=== PATIENT | male | born 1955 | race Caucasian/White ===

== ENCOUNTER 2024-02-10 16:13 | Observation (INO) ==
[2024-02-10] MEDS: SODIUM CHLORIDE 0.9% 1,000 ML IV ONE (16:38)
[2024-02-10] MEDS: ONDANSETRON INJ 2 MG/ML 2 ML VIAL IV STA ×2 (16:38→19:13)
[2024-02-10] MEDS: MoRPHine SULFATE 4 MG/ML 1 ML CARP\\VIAL IV STA (16:39)
[2024-02-10] MEDS: ASPIRIN CHEW 324 MG PO STA (16:39)
[2024-02-10 16:49] LABS: Basophils # (auto) 0.01 K/uL (0.00-0.20); Basophils % (auto) 0.1 %; Hematocrit (blood only) 37.1 % (42.0-52.0); Hemoglobin 12.7 g/dl (14.0-18.0); Immature Granulocytes # (auto) 0.07 K/uL (0.01-0.20); Immature Granulocytes % (auto) 0.6 %; Lymphocytes # (auto) 0.88 K/uL (1.20-3.40); Lymphocytes % (auto) 7.9 %; Mean Corpuscular Hemoglobin 28.5 pg (25.0-34.0); Mean Corpuscular Hgb Conc 34.2 g/dL (32.0-36.0); Mean Corpuscular Volume 83.2 fL (80.0-100.0); Mean Platelet Volume 9.2 fL (9.4-12.4); Monocytes # (auto) 0.64 K/uL (0.11-0.59); Monocytes % (auto) 5.8 %; Neutrophils # (auto) 9.48 K/uL (1.40-6.50); Neutrophils % (auto) 85.6 %; Platelet Count 273 K/uL (130-400); RDW Coefficient of Variation 14.8 % (11.5-14.5); RDW Standard Deviation 44.7 fL (36.4-46.3); Red Blood Count 4.46 M/uL (4.70-6.10); White Blood Count 11.08 K/ul (4.8-10.8)
--- NOTE | 2024-02-10 16:58 | XRay Report ---
XR chest 1V portable HISTORY: 68 years-old Male CHEST PAIN COMPARISON: CT abdomen and pelvis 08/01/2023 TECHNIQUE: AP view the chest FINDINGS: Cardiac silhouette is enlarged. There is chronic right hemidiaphragmatic elevation with prominent epi cardial fat pad obscuring the right heart border. Atherosclerosis of the aorta. No pneumothorax, pleu ral effusion or pulmonary edema. The bones appear intact. IMPRESSION: No acute process ACT 112: Negative or not required by law. The above report was generated using voice recognition software. It may contain grammatical, syntax o r spelling errors. Electronically signed by: Shay Goncalves M.D. 02/10/2024 4:56 PM
[2024-02-10 17:10] LABS: Bilirubin Direct 0.1 mg/dl (0-0.2); Bilirubin,Total 0.6 mg/dl (0.2-1.0); Creatinine Clr Calc Pharmacy 79.3 ml/min; Est GFR (African American) 77.5 ml/min; Est GFR (Non-African American) 66.9 ml/min; Potassium 4.8 mmol/L (3.5-5.1); Total Protein 6.6 gm/dl (6.0-8.3)
[2024-02-10 17:14] LABS: D Dimer < 190 ug/L FEU (0-500); Partial Thromboplastin Time 26 Seconds (21-31); Prothrombin Time 10.9 Seconds (9.0-12.0)
--- NOTE | 2024-02-10 17:14 | XRay Report ---
XR abdomen min 2V CLINICAL HISTORY: ruq pain epigastric pain cp TECHNIQUE: 2 views of the abdomen were obtained. Comparison: None available at the time of this dictation. FINDINGS: Lung bases are unremarkable. Degenerative changes are seen in the visualized skeleton. The bowel gas pattern is nonobstructive. A moderate amount of stool is noted within the large bowel. IMPRESSION: Nonobstructive bowel gas pattern. ACT 112: Negative or not required by law. Electronically signed by: Kel Ordoñez M.D. 02/10/2024 5:13 PM
[2024-02-10 17:24] LABS: Troponin I High Sensitivity 4.2 pg/ml (0-20)
--- NOTE | 2024-02-10 18:23 | Ultrasound Report ---
US gallbladder CLINICAL HISTORY: ruq pain TECHNIQUE: Multiple real-time sonographic images of the right upper quadrant were obtained. Comparison: Comparison is made to CT abdomen pelvis 08/01/2023 FINDINGS: The liver is diffusely echogenic in appearance with poor ultrasound penetration, with normal contour, which is consistent with fatty infiltration. Liver measures 18.6 cm. No focal mass lesions are seen. No intrahepatic ductal dilatation is seen. Linear hyperechoic foci with posterior shadowing are identified layering dependently within the gallbladder, which are consistent with gallstones and slud ge. The gallbladder wall is not thickened. There is no pericholecystic fluid present. A sonographic Tate's sign was not elicited by the senior systems software engineer. The common duct measures 0.4 cm in diameter at t he level of the hepatic artery. The visualized portions of the pancreas appear normal. The right kidney shows normal echogenicity, cortical thickness and renal contour. The right kidney sh ows no evidence of hydronephrosis or mass. No ascites or free fluid is seen in Joyce's pouch. IMPRESSION: No acute abnormalities and in particular no evidence of acute cholecystitis. Hepatic steatosis is see n. ACT 112: Negative or not required by law. Electronically signed by: Kel Ordoñez M.D. 02/10/2024 6:22 PM
--- NOTE | 2024-02-10 18:28 | Emergency Department Note ---
History of Present Illness General Chief Complaint: Chest Pain Time Seen by Provider: 02/10/24 16:24 History of Present Illness Provider Complaint: chest pain Onset (ago): hour(s) 2 Duration: intermittent and improved Pain Location: substernal and left chest Pain Radiation: LUE and abdomen (Epigastric area) Maximum Pain Intensity: 7 Current Pain Intensity: 7 Quality: + aching, + sharp and + other (Burning) Relieved By: + nothing Exacerbated By: + nothing Context: + other (Occurred after eating); no recent illness, no recent surgery, no recent immobilization, no recent travel, no trauma/injury, no new medications or no history of DVT/PE Associated symptoms: + nausea and + dyspnea; no vomiting, no diaphoresis, no syncope, no palpitations, no fever, no cough or no leg swelling Treatments prior to arrival: aspirin and nitroglycerin Home Medications Medication Instructions Recorded Confirmed Type aspirin 81 mg tablet,delayed 81 mg PO QDD 08/13/18 02/10/24 History release (Nga Low Dose Aspirin) atorvastatin 80 mg tablet 80 mg PO HS 08/13/18 02/10/24 History fexofenadine 180 mg tablet 180 mg PO QDD 08/13/18 02/10/24 History fluticasone propionate 50 1 spray intranasal QAM 08/13/18 02/10/24 History mcg/actuation nasal spray,suspension (Flonase Allergy Relief) lisinopril 20 mg tablet 20 mg PO QPM 08/13/18 02/10/24 History magnesium 250 mg tablet 250 mg PO QDD 08/13/18 02/10/24 History metformin 500 mg tablet 500 mg PO BIDM 08/13/18 02/10/24 History multivitamin 1 tab PO QAM 08/13/18 02/10/24 History omega 5-rwb-fbb-fish oil 1,000 mg 1 cap PO .QLUNCH 08/13/18 02/10/24 History (120 mg-180 mg) capsule (Fish Oil) potassium gluconate 550 mg (90 mg) 550 mg PO QDD 08/13/18 02/10/24 History tablet diclofenac sodium 1 % topical gel 1 g topical QID 02/10/24 02/10/24 History (Voltaren Arthritis Pain) esomeprazole magnesium 20 mg 20 mg PO DAILYBB 02/10/24 02/10/24 History capsule,delayed release (Nexium) methylcellulose (laxative) 500 mg 500 mg PO DAILY 02/10/24 02/10/24 History tablet (Citrucel) naproxen 500 mg tablet 500 mg PO AMHS 02/10/24 02/10/24 History ondansetron 4 mg disintegrating 4 mg translingual Q8 PRN Nausea 02/10/24 02/10/24 History tablet prednisone 10 mg tablet 10 mg PO .TAPER DIRECTED 02/10/24 02/10/24 History semaglutide 3 mg tablet (Rybelsus) 3 mg PO DAILY 02/10/24 02/10/24 History semaglutide 7 mg tablet (Rybelsus) 7 mg PO .DAILY DIRECTED 02/10/24 02/10/24 History vit C 250 mg-vit E 90 mg-zinc 40 1 tab PO BID 02/10/24 02/10/24 History mg-copper 1 [id number] capsule (PreserVision AREDS-2) Allergies Allergy/AdvReac Type Severity Reaction Status Date / Time No Known Allergies Allergy Unknown Verified 02/10/24 17:07 Past Med/Surg History Problem List (Updated 02/10/24 @ 20:08 by Christiano Ford MD) Chest pain (Acute) Medical History Finger avulsion middle right finger and reattached Non-insulin dependent type 2 diabetes mellitus Obesity (BMI 35.0-39.9 without comorbidity) Diabetes Seasonal allergies Hypertension High cholesterol Surgical History Hx of colonoscopy Hx of hernia repair as child Social History Smoking Status: Former smoker Hx Alcohol Use: Yes Alcohol type: beer Hx Substance Use: No Preferred Language: Stateless Communication Ability: Effective Beliefs That Will Affect Care: None Current Living Situation: Spouse Feels Safe at Home: Yes Physical Exam Vital Signs Vital Signs - 24 hr 02/10/24 16:28 02/10/24 16:29 02/10/24 17:46 Temperature 36.9 C Temperature Source Oral Pulse Rate 90 91 H Pulse Rate [Right Radial] Pulse Rhythm [Right Radial] Pulse Strength [Right Radial] Respiratory Rate 20 Respiratory Effort / Characteristics Non-Labored Spontaneous Respiratory Depth Normal Respiratory Pattern Regular Blood Pressure 175/73 H Blood Pressure [Right Arm] Blood Pressure Mean 107 Blood Pressure Mean [Right Arm] Pulse Oximetry 96 95 Oxygen Delivery Method Room Air Room Air Sepsis Recent Fever Within 48 Hours No Sepsis New/Unexplained Change in Mental Status N/A Sepsis Action Taken by Nursing No Action Required 02/10/24 19:17 Temperature Temperature Source Pulse Rate Pulse Rate [Right Radial] 73 Pulse Rhythm [Right Radial] Regular Pulse Strength [Right Radial] Normal Respiratory Rate 18 Respiratory Effort / Characteristics Non-Labored Spontaneous Respiratory Depth Normal Respiratory Pattern Blood Pressure Blood Pressure [Right Arm] 129/66 Blood Pressure Mean Blood Pressure Mean [Right Arm] 87 Pulse Oximetry 97 Oxygen Delivery Method Room Air Sepsis Recent Fever Within 48 Hours Sepsis New/Unexplained Change in Mental Status Sepsis Action Taken by Nursing Physical Exam GENERAL: She is oriented to person, place, and time. She appears well-developed and well-nourished. She does not appear distressed. HENT: Exam performed. -Head: Normocephalic and atraumatic. -Right Ear: External ear normal. No mastoid erythema -Left Ear: External ear normal. No mastoid erythema -Mouth/Throat: The oropharynx is clear and moist. No trismus in the jaw. No dental abscesses or uvula swelling. No oropharyngeal exudate or tonsillar abscesses. EYES: Conjunctivae and EOM are normal.Right eye exhibits no discharge. Left eye exhibits no discharge. No scleral icterus. NECK: Normal range of motion. Neck supple. No JVD present. No tracheal deviation and normal range of motion present. CV: Normal rate, regular rhythm, normal heart sounds and intact distal pulses. There is no peripheral edema. Palpable radial pulses bue. PULM/CHEST: Effort normal and breath sounds normal. No respiratory distress. No stridor. She has no wheezes. She has no rales. -Chest Wall: She exhibits no tenderness. ABD: The abdomen is soft. Bowel sounds are normal. She has no distension. No mass is present. There is tenderness to palpation of the epigastric area and right upper quadrant. There is no rebound, no guarding, no Tate's sign and no tenderness at McBurney's point. Rovsig negative MUSC/SKEL: Normal range of motion. There is no peripheral edema, tenderness or deformity. NEURO: Motor and sensation grossly intact. SKIN: Skin is warm and dry. She is not diaphoretic. PSYCH: She has a normal mood and affect. Behavior is normal. Judgment and thought content normal. Course Course 1624: The patient was evaluated in room A11. A complete history and physical exam was performed Cardiac monitoring: An order was placed for continuous cardiac monitoring. The monitor shows a rate of 90 with sinus rhythm interpreted by me 1845: Vital signs stable. Labs and imaging within normal limits including negative troponin EKG chest x-ray D-dimer ultrasound. Patient be admitted to the [facility] Hospitalist team for chest pain rule out ACS. Administered Medications Discontinued Medications Aspirin (Aspirin Chew 324 Mg) 324 mg PO NOW STA Stop: 02/10/24 16:25 Last Admin: 02/10/24 16:39 Dose: Not Given Documented By: ZOFIA Sodium Chloride (Nss) 1,000 mls @ 999 mls/hr IV .Q1H1M ONE Stop: 02/10/24 17:33 Last Infusion: 02/10/24 19:06 Dose: Infused Documented By: Admin: 02/10/24 16:38 Dose: 999 mls/hr Documented By: ZOFIA Lorazepam (Lorazepam 1 Mg Tab) 1 mg SL NOW STA Stop: 02/10/24 19:58 Last Admin: 02/10/24 20:00 Dose: 1 mg Documented By: ABHIJIT Morphine Sulfate (Morphine Sulfate 4 Mg/Ml 1 Ml Carp\Vial) 4 mg IV NOW STA Stop: 02/10/24 16:34 Last Admin: 02/10/24 16:39 Dose: 4 mg Documented By: ZOFIA Nitroglycerin (Nitroglycerin 2% Ointment 30gm Tube) 0.5 inch EXT NOW STA Stop: 02/10/24 19:10 Last Admin: 02/10/24 19:13 Dose: 0.5 inch Documented By: ABHIJIT Ondansetron HCl (Ondansetron Inj 2 Mg/Ml 2 Ml Vial) 4 mg IV NOW STA Stop: 02/10/24 16:34 Last Admin: 02/10/24 16:38 Dose: 4 mg Documented By: ZOFIA Ondansetron HCl (Ondansetron Inj 2 Mg/Ml 2 Ml Vial) 4 mg IV NOW STA Stop: 02/10/24 19:11 Last Admin: 02/10/24 19:13 Dose: 4 mg Documented By: ABHIJIT Medical Decision Making Laboratory Data Attestation: I reviewed the patient's lab results. 02/10/24 16:24 02/10/24 16:24 Labs: Lab Results 02/10/24 Range/Units 16:24 WBC 11.08 H (4.8-10.8) K/ul RBC 4.46 L (4.70-6.10) M/uL Hgb 12.7 L (14.0-18.0) g/dl Hct 37.1 L (42.0-52.0) % MCV 83.2 (80.0-100.0) fL MCH 28.5 (25.0-34.0) pg MCHC 34.2 (32.0-36.0) g/dL RDW Std Deviation 44.7 (36.4-46.3) fL RDW Coeff of Dragan 14.8 H (11.5-14.5) % Plt Count 273 (130-400) K/uL MPV 9.2 L (9.4-12.4) fL Immature Gran % (Auto) 0.6 % Neut % (Auto) 85.6 % Lymph % (Auto) 7.9 % Iron % (Auto) 5.8 % Eos % (Auto) 0.0 % Baso % (Auto) 0.1 % Neut # (Auto) 9.48 H (1.40-6.50) K/uL Lymph # (Auto) 0.88 L (1.20-3.40) K/uL Iron # (Auto) 0.64 H (0.11-0.59) K/uL Eos # (Auto) 0.00 (0.00-0.50) K/uL Baso # (Auto) 0.01 (0.00-0.20) K/uL Immature Gran # (Auto) 0.07 (0.01-0.20) K/uL PT 10.9 (9.0-12.0) Seconds INR 1.0 (0.9-1.1) APTT 26 (21-31) Seconds PTT Ratio 1.0 D-Dimer < 190 (0-500) ug/L FEU Sodium 137 (136-145) mmol/L Potassium 4.8 (3.5-5.1) mmol/L Chloride 104 (98-107) mmol/L Carbon Dioxide 25 (21-32) mmol/L Anion Gap 8 (3-11) BUN 26 H (6-23) mg/dl Creatinine 1.13 (0.6-1.4) mg/dl Est Cr Clr Drug Dosing 79.3 ml/min Est GFR ( Amer) 77.5 ml/min Est GFR (Non-Af Amer) 66.9 ml/min BUN/Creatinine Ratio 23.0 H (10-20) Glucose 372 H* (70-99(Fasting)) mg/dl Calcium 9.0 (8.6-10.3) mg/dl Total Bilirubin 0.6 (0.2-1.0) mg/dl Direct Bilirubin 0.1 (0-0.2) mg/dl AST 14 (13-39) U/L ALT 20 (7-52) U/L Alkaline Phosphatase 75 (34-104) U/L Troponin I High Sens 4.2 (0-20) pg/ml Total Protein 6.6 (6.0-8.3) gm/dl Albumin 4.0 (3.4-5.0) gm/dl Lipase 58 (11-82) U/L Imaging Data Abdominal x-ray: Radiologist's impression: XR abdomen min 2V CLINICAL HISTORY: ruq pain epigastric pain cp TECHNIQUE: 2 views of the abdomen were obtained. Comparison: None available at the time of this dictation. FINDINGS: Lung bases are unremarkable. Degenerative changes are seen in the visualized skeleton. The bowel gas pattern is nonobstructive. A moderate amount of stool is noted within the large bowel. IMPRESSION: Nonobstructive bowel gas pattern. ACT 112: Negative or not required by law. Electronically signed by: Kel Ordoñez M.D. 02/10/2024 5:13 PM Dictated: 02/10/241710 Transcribed: 02/10/241710 Chest x-ray: Attestation: I personally reviewed and interpreted this imaging study as follows: My impression: Chest x-ray negative. Airway clear. No pneumothorax. No consolidation. No cardiomegaly or cephalization.. No free air under the diaphragm. No fractures of the skeletal structures. Radiologist's impression: XR chest 1V portable HISTORY: 68 years-old Male CHEST PAIN COMPARISON: CT abdomen and pelvis 08/01/2023 TECHNIQUE: AP view the chest FINDINGS: Cardiac silhouette is enlarged. There is chronic right hemidiaphragmatic elevation with prominent epicardial fat pad obscuring the right heart border. Atherosclerosis of the aorta. No pneumothorax, pleural effusion or pulmonary edema. The bones appear intact. IMPRESSION: No acute process ACT 112: Negative or not required by law. The above report was generated using voice recognition software. It may contain grammatical, syntax or spelling errors. Electronically signed by: Shay Goncalves M.D. 02/10/2024 4:56 PM Dictated: 02/10/241652 Transcribed: 02/10/241652 US - abdomen: Radiologist's impression: US gallbladder CLINICAL HISTORY: ruq pain TECHNIQUE: Multiple real-time sonographic images of the right upper quadrant were obtained. Comparison: Comparison is made to CT abdomen pelvis 08/01/2023 FINDINGS: The liver is diffusely echogenic in appearance with poor ultrasound penetration, with normal contour, which is consistent with fatty infiltration. Liver measures 18.6 cm. No focal mass lesions are seen. No intrahepatic ductal dilatation is seen. Linear hyperechoic foci with posterior shadowing are identified layering dependently within the gallbladder, which are consistent with gallstones and sludge. The gallbladder wall is not thickened. There is no pericholecystic fluid present. A sonographic Tate's sign was not elicited by the behavioral health director. The common duct measures 0.4 cm in diameter at the level of the hepatic artery. The visualized portions of the pancreas appear normal. The right kidney shows normal echogenicity, cortical thickness and renal contour. The right kidney shows no evidence of hydronephrosis or mass. No ascites or free fluid is seen in Joyce's pouch. IMPRESSION: No acute abnormalities and in particular no evidence of acute cholecystitis. Hepatic steatosis is seen. ACT 112: Negative or not required by law. Electronically signed by: Kel Ordoñez M.D. 02/10/2024 6:22 PM Dictated: 02/10/241819 Transcribed: 02/10/241819 ECG Data Attestation: I personally reviewed and interpreted this ECG as follows: Indication: abdominal pain and chest pain Rate (beats per minute): 91 Rhythm: normal sinus Findings: + 1st degree AV block; no ST depression, no ST elevation or no prolonged QT MDM Narrative 1624: The patient was evaluated in room A11. A complete history and physical exam was performed Cardiac monitoring: An order was placed for continuous cardiac monitoring. The monitor shows a rate of 90 with sinus rhythm interpreted by me 1845: Vital signs stable. Labs and imaging within normal limits including negative troponin EKG chest x-ray D-dimer ultrasound. Patient be admitted to the [facility] hospitalist team for chest pain rule out ACS. Impression & Plan Chest pain Discharge Plan Visit Data Chief Complaint: Chest Pain ED Provider: Christiano Ford Discharge Problem: Chest pain Patient Disposition: Being Evaluated by Hospitalist Forms Stand Alone Forms: My [facility] Prescriptions Prescriptions: No Action multivitamin Tablet 1 tab PO QAM metformin 500 mg Tablet 500 mg PO BIDM atorvastatin 80 mg Tablet 80 mg PO HS lisinopril 20 mg Tablet 20 mg PO QPM fexofenadine 180 mg Tablet 180 mg PO QDD aspirin [Nga Low Dose Aspirin] 81 mg Tablet,Delayed Release (Dr/Ec) 81 mg PO QDD fluticasone propionate [Flonase Allergy Relief] 50 mcg/actuation Venus,Suspension 1 spray INTRANASAL QAM omega 9-mjl-ade-fish oil [Fish Oil] 1,000 mg (120 mg-180 mg) Capsule 1 cap PO .QLUNCH magnesium 250 mg Tablet 250 mg PO QDD potassium gluconate 550 mg (90 mg) Tablet 550 mg PO QDD prednisone 10 mg tablet 10 mg PO .TAPER DIRECTED Rx Instructions: Take 5 tabs for 2 days, 4 tabs for 2 days, 3 tabs for 2 days, tabs for 2 days, 1 tab for 2 days Citrucel 500 mg Tablet 500 mg PO DAILY ondansetron 4 mg tablet,disintegrating 4 mg translingual Q8 PRN (Reason: Nausea) naproxen 500 mg tablet 500 mg PO AMHS esomeprazole magnesium [Nexium] 20 mg Capsule,Delayed Release(Dr/Ec) 20 mg PO DAILYBB diclofenac sodium [Voltaren Arthritis Pain] 1 % Gel 1 g TOPICAL QID PreserVision AREDS-2 250-90-40-1 mg Capsule 1 tab PO BID Rybelsus 3 mg Tablet 3 mg PO DAILY Rx Instructions: New. Has not started. Rybelsus 7 mg Tablet 7 mg PO .DAILY DIRECTED Rx Instructions: New. Did not start Referrals Referrals: Alonso Daigle MD [Primary Care Provider] - Discharge Problem: Chest pain Qualifiers: Chest pain type: unspecified Qualified Code(s): R07.9 - Chest pain, unspecified
[2024-02-10] MEDS: NITROGLYCERIN 2% OINTMENT 30GM TUBE EXT STA (19:13)
[2024-02-10] MEDS: LORazepam 1 MG TAB SL STA (20:00)
--- NOTE | 2024-02-10 20:46 | History & Physical Report ---
Date of Service February 10, 2024 Assessment & Plan (1) Chest pain: Plan: 68-year-old male with past medical history significant for type 2 diabetes, hyperlipidemia, hypertension, generalized osteoarthritis, cervical spondylosis, history of upper extremity weakness, chronic neck pain, comes because of chest pain and shortness of breath. Patient states today afternoon he started developing chest pain middle of the chest radiating to his both his arms very s evere in nature. Associated with shortness of breath and feeling hot and clammy in hands. Enroute to hospital EMS has given 4 nitros that did not help much the pain and in ER morphine was given which brought down the pain to 6/10 in severity. He was also nauseous and required Zofran. When EMS came he was having a lot of headache. Currently headache is much improved. He is also feeling dizzy when he is standing up. States had this kind of pain before but used to subside with TUMS but today it was not improving. Yesterday went to PCP because of possible food poisoning from chicken he ate on Friday and he was hurting everywhere. And for possible viral illness he was given prednisone. And also Zofran for nausea. Patient is also on naproxen for his chronic cervical spine pain. Patient states in the winter when he was shoveling and try to do it all at one time used to get chest pains and had to stop and take couple of breaths. Seems also getting chest pains on exertion. Has some pressure feeling in ears.. Vision is somewhat blurry. No runny nose or sore throat or cough. Patient seems to having abdominal pain.. Normal bowel and bladder movements. No swelling the legs. He does not sleep well. Patient states otherwise he is very active. Currently hemodynamics are okay. Family in the room.Patient is able to give the history. Chest pain and shortness of breath initial workup okay D-dimer negative will repeat troponin Follow serial cardiac enzymes and echocardiogram med/telemetry n.p.o. after midnight consult cardiology in a.m. for further recommendations right upper quad abdominal pain LFTs are okay gallbladder ultrasound is okay we will monitor. Dizziness while standing. will check orthostatics gentle fluids will monitor. type 2 diabetes hold metformin and semaglutide insulin sliding scale follow HbA1c levels will monitor hyperlipidemia on statin hypertension on lisinopril recent viral illness . Started on Prednisone yesterday which will be held GERD on Nexium will give a dose of IV Pepcid chronic cervical spine pain will hold naproxen for now DVT prophylaxis SCDs disposition med/telemetry full code History of Present Illness Chief Complaint: Chest pain and shortness of breath Primary Care Provider: Alonso Daigle MD 68-year-old male with past medical history significant for type 2 diabetes, hyperlipidemia, hypertension, generalized osteoarthritis, cervical spondylosis, history of upper extremity weakness, chronic neck pain, comes because of chest pain and shortness of breath. Patient states today afternoon he started developing chest pain middle of the chest radiating to his both his arms very severe in nature. Associated with shortness of breath and feeling hot and clammy in hands. Enroute to hospital EMS has given 4 nitros that did not help much the pain and in ER morphine was given which brought down the pain to 6/10 in severity. He was also nauseous and required Zofran. When EMS came he was having a lot of headache. Currently headache is much improved. He is also feeling dizzy when he is standing up. States had this kind of pain before but used to subside with TUMS but today it was not improving. Yesterday went to PCP because of possible food poisoning from chicken he ate on Friday and he was hurting everywhere. And for possible viral illness he was given prednisone. And also Zofran for nausea. Patient is also on naproxen for his chronic cervical spine pain. Patient states in the winter when he was shoveling and try to do it all at one time used to get chest pains and had to stop and take couple of breaths. Seems also getting chest pains on exertion. Has some pressure feeling in ears.. Vision is somewhat blurry. No runny nose or sore throat or cough. Patient seems to having abdominal pain.. Normal bowel and bladder movements. No swelling the legs. He does not sleep well. Patient states otherwise he is very active. Currently hemodynamics are okay. Family in the room.Patient is able to give the history. Past medical history. As mentioned above. Past surgical history. Colonoscopy. Left knee arthroscopy. Inguinal hernia repair umbilical hernia repair social history. . Quit smoking 2001. Smoked 1 pack a day for 30 years. Alcohol rarely. No drug use. Family history. Brother had prostate cancer. Father had prostate cancer. CABG. Mother had a stroke. Allergies Allergy/AdvReac Type Severity Reaction Status Date / Time No Known Allergies Allergy Unknown Verified 02/10/24 17:07 Home Medications Medication Instructions Recorded Confirmed Type aspirin 81 mg tablet,delayed 81 mg PO QDD 08/13/18 02/10/24 History release (Nga Low Dose Aspirin) atorvastatin 80 mg tablet 80 mg PO HS 08/13/18 02/10/24 History fexofenadine 180 mg tablet 180 mg PO QDD 08/13/18 02/10/24 History fluticasone propionate 50 1 spray intranasal QAM 08/13/18 02/10/24 History mcg/actuation nasal spray,suspension (Flonase Allergy Relief) lisinopril 20 mg tablet 20 mg PO QPM 08/13/18 02/10/24 History magnesium 250 mg tablet 250 mg PO QDD 08/13/18 02/10/24 History metformin 500 mg tablet 500 mg PO BIDM 08/13/18 02/10/24 History multivitamin 1 tab PO QAM 08/13/18 02/10/24 History omega 8-yot-tzj-fish oil 1,000 mg 1 cap PO .QLUNCH 08/13/18 02/10/24 History (120 mg-180 mg) capsule (Fish Oil) potassium gluconate 550 mg (90 mg) 550 mg PO QDD 08/13/18 02/10/24 History tablet diclofenac sodium 1 % topical gel 1 g topical QID 02/10/24 02/10/24 History (Voltaren Arthritis Pain) esomeprazole magnesium 20 mg 20 mg PO DAILYBB 02/10/24 02/10/24 History capsule,delayed release (Nexium) methylcellulose (laxative) 500 mg 500 mg PO DAILY 02/10/24 02/10/24 History tablet (Citrucel) naproxen 500 mg tablet 500 mg PO AMHS 02/10/24 02/10/24 History ondansetron 4 mg disintegrating 4 mg translingual Q8 PRN Nausea 02/10/24 02/10/24 History tablet prednisone 10 mg tablet 10 mg PO .TAPER DIRECTED 02/10/24 02/10/24 History semaglutide 3 mg tablet (Rybelsus) 3 mg PO DAILY 02/10/24 02/10/24 History semaglutide 7 mg tablet (Rybelsus) 7 mg PO .DAILY DIRECTED 02/10/24 02/10/24 History vit C 250 mg-vit E 90 mg-zinc 40 1 tab PO BID 02/10/24 02/10/24 History mg-copper 1 mj-flshlt-vcukei capsule (PreserVision AREDS-2) Past Med/Surg History Problem List (Updated 02/10/24 @ 20:08 by Christiano Ford MD) Chest pain (Acute) Medical History Finger avulsion middle right finger and reattached Non-insulin dependent type 2 diabetes mellitus Obesity (BMI 35.0-39.9 without comorbidity) Diabetes Seasonal allergies Hypertension High cholesterol Surgical History Hx of colonoscopy Hx of hernia repair as child Social History Smoking Status: Former smoker Tobacco Type: Cigarettes Hx Alcohol Use: Yes Alcohol type: beer Hx Substance Use: No Preferred Language: Sinhala Communication Ability: Effective 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 Required: No Beliefs That Will Affect Care: None Current Living Situation: Spouse Other Information That Helps Us Care for You: No Feels Safe at Home: No Is there a partner from a previous relationship who is making you feel unsafe now?: No Any Concerns about Your Family Situation: No Would You Like to Speak to Someone About Your Situation: No Safety Concerns: Feels Safe At This Time Assistive Devices: Glasses Review of Systems Review of Systems: All systems reviewed & are unremarkable except as noted in HPI & below Physical Exam Physical Exam: General- Not in distress Head- atraumatic Eyes- PERRL, EOMI. ENT- oropharynx clear Neck- supple, no JVD, no adenopathy, carotids no bruits appreciated Lungs- clear to auscultation no wheezing or crackles Heart- regular rate and rhythm; no murmur, no gallop. Abdomen- normal bowel sounds, soft, tenderness in ruq region. no guarding, no distension Extremities- no pretibial edema, no erythema seen Neuro- alert, oriented PERRL, EOMI; no facial palsy; no dysarthria; moves extremities. Results & Data Results & Data Vital Signs (Past 12 Hours) Vital Signs Temp Pulse Pulse Resp BP BP Pulse Ox 02/10/24 20:14 71 02/10/24 19:17 73 18 129/66 97 02/10/24 17:46 91 H 02/10/24 16:29 95 02/10/24 16:28 36.9 C 90 20 175/73 H 96 O2 Del Method 02/10/24 20:14 02/10/24 19:17 Room Air 02/10/24 17:46 02/10/24 16:29 Room Air 02/10/24 16:28 Room Air Diagnostic Findings Laboratory Results WBC 11.08 K/ul (4.8-10.8) H 02/10/24 16:24 RBC 4.46 M/uL (4.70-6.10) L 02/10/24 16:24 Hgb 12.7 g/dl (14.0-18.0) L 02/10/24 16:24 Hct 37.1 % (42.0-52.0) L 02/10/24 16:24 MCV 83.2 fL (80.0-100.0) 02/10/24 16:24 MCH 28.5 pg (25.0-34.0) 02/10/24 16:24 MCHC 34.2 g/dL (32.0-36.0) 02/10/24 16:24 RDW Std Deviation 44.7 fL (36.4-46.3) 02/10/24 16:24 RDW Coeff of Dragan 14.8 % (11.5-14.5) H 02/10/24 16:24 Plt Count 273 K/uL (130-400) 02/10/24 16:24 MPV 9.2 fL (9.4-12.4) L 02/10/24 16:24 Immature Gran % (Auto) 0.6 % 02/10/24 16:24 Neut % (Auto) 85.6 % 02/10/24 16:24 Lymph % (Auto) 7.9 % 02/10/24 16:24 Wilbarger % (Auto) 5.8 % 02/10/24 16:24 Eos % (Auto) 0.0 % 02/10/24 16:24 Baso % (Auto) 0.1 % 02/10/24 16:24 Neut # (Auto) 9.48 K/uL (1.40-6.50) H 02/10/24 16:24 Lymph # (Auto) 0.88 K/uL (1.20-3.40) L 02/10/24 16:24 Wilbarger # (Auto) 0.64 K/uL (0.11-0.59) H 02/10/24 16:24 Eos # (Auto) 0.00 K/uL (0.00-0.50) 02/10/24 16:24 Baso # (Auto) 0.01 K/uL (0.00-0.20) 02/10/24 16:24 Immature Gran # (Auto) 0.07 K/uL (0.01-0.20) 02/10/24 16:24 PT 10.9 Seconds (9.0-12.0) 02/10/24 16:24 INR 1.0 (0.9-1.1) 02/10/24 16:24 APTT 26 Seconds (21-31) 02/10/24 16:24 PTT Ratio 1.0 02/10/24 16:24 D-Dimer < 190 ug/L FEU (0-500) 02/10/24 16:24 Sodium 137 mmol/L (136-145) 02/10/24 16:24 Potassium 4.8 mmol/L (3.5-5.1) 02/10/24 16:24 Chloride 104 mmol/L (98-107) 02/10/24 16:24 Carbon Dioxide 25 mmol/L (21-32) 02/10/24 16:24 Anion Gap 8 (3-11) 02/10/24 16:24 BUN 26 mg/dl (6-23) H 02/10/24 16:24 Creatinine 1.13 mg/dl (0.6-1.4) 02/10/24 16:24 Est Cr Clr Drug Dosing 79.3 ml/min 02/10/24 16:24 Est GFR ( Amer) 77.5 ml/min 02/10/24 16:24 Est GFR (Non-Af Amer) 66.9 ml/min 02/10/24 16:24 BUN/Creatinine Ratio 23.0 (10-20) H 02/10/24 16:24 Glucose 372 mg/dl (70-99(Fasting)) H* 02/10/24 16:24 Calcium 9.0 mg/dl (8.6-10.3) 02/10/24 16:24 Total Bilirubin 0.6 mg/dl (0.2-1.0) 02/10/24 16:24 Direct Bilirubin 0.1 mg/dl (0-0.2) 02/10/24 16:24 AST 14 U/L (13-39) 02/10/24 16:24 ALT 20 U/L (7-52) 02/10/24 16:24 Alkaline Phosphatase 75 U/L (34-104) 02/10/24 16:24 Troponin I High Sens 4.2 pg/ml (0-20) 02/10/24 16:24 Total Protein 6.6 gm/dl (6.0-8.3) 02/10/24 16:24 Albumin 4.0 gm/dl (3.4-5.0) 02/10/24 16:24 Lipase 58 U/L (11-82) 02/10/24 16:24 Impressions Abdomen X-Ray 02/10/24 16:33 XR abdomen min 2V CLINICAL HISTORY: ruq pain epigastric pain cp TECHNIQUE: 2 views of the abdomen were obtained. Comparison: None available at the time of this dictation. FINDINGS: Lung bases are unremarkable. Degenerative changes are seen in the visualized skeleton. The bowel gas pattern is nonobstructive. A moderate amount of stool is noted within the large bowel. IMPRESSION: Nonobstructive bowel gas pattern. ACT 112: Negative or not required by law. Electronically signed by: Kel Ordoñez M.D. 02/10/2024 5:13 PM Gallbladder Ultrasound 02/10/24 16:33 US gallbladder CLINICAL HISTORY: ruq pain TECHNIQUE: Multiple real-time sonographic images of the right upper quadrant were obtained. Comparison: Comparison is made to CT abdomen pelvis 08/01/2023 FINDINGS: The liver is diffusely echogenic in appearance with poor ultrasound penetration, with normal contour, which is consistent with fatty infiltration. Liver measures 18.6 cm. No focal mass lesions are seen. No intrahepatic ductal dilatation is seen. Linear hyperechoic foci with posterior shadowing are identified layering dependently within the gallbladder, which are consistent with gallstones and sludge. The gallbladder wall is not thickened. There is no pericholecystic fluid present. A sonographic Tate's sign was not elicited by the r&d lab technician. The common duct measures 0.4 cm in diameter at the level of the hepatic artery. The visualized portions of the pancreas appear normal. The right kidney shows normal echogenicity, cortical thickness and renal contour. The right kidney shows no evidence of hydronephrosis or mass. No ascites or free fluid is seen in Joyce's pouch. IMPRESSION: No acute abnormalities and in particular no evidence of acute cholecystitis. Hepatic steatosis is seen. ACT 112: Negative or not required by law. Electronically signed by: Kel Ordoñez M.D. 02/10/2024 6:22 PM Code Status & VTE Plan VTE Prophylaxis Plan VTE Prophylaxis will be ordered: Yes (1) Chest pain Chest pain type: unspecified Qualified Code(s): R07.9 - Chest pain, unspecified
[2024-02-10] MEDS ORDERED: ACETAMINOPHEN 325 MG TAB PO PRN (21:43)
[2024-02-10] MEDS ORDERED: CARBOHYDRATES FOR HYPOGLYCEMIA PO PRN (21:43)
[2024-02-10] MEDS ORDERED: NITROGLYCERIN SL 0.4 MG/TAB TAB SL PRN (21:43)
[2024-02-10] MEDS ORDERED: GLUCOSE 10 TAB/TUBE PO PRN (21:43)
[2024-02-10] MEDS ORDERED: DEXTROSE 50% 50 ML SYRINGE IV PRN (21:43)
[2024-02-10] MEDS ORDERED: GLUCAGON FOR INJ 1 MG VIAL SQ PRN (21:43)
[2024-02-10] MEDS ORDERED: GLUCOSE 40% GEL 15 GM TUBE PO PRN (21:43)
[2024-02-10] MEDS: FAMOTIDINE 20MG IV PUSH 20 MG/5 ML SYR IV STA (22:24)
[2024-02-10] MEDS: lisinopril 20 MG TAB PO SCH (22:24)
[2024-02-10] MEDS: ATORVASTATIN 40 MG TAB PO SCH (22:24)
[2024-02-10] MEDS: SODIUM CHLORIDE 0.9% 1,000 ML IV SCH (22:25)
[2024-02-10] MEDS: INSULIN ASPART PER UNIT CHARGE SC SCH (23:47)
[2024-02-11] MEDS: MoRPHine SULFATE 2 MG/ML CARP IV PRN (02:23)
[2024-02-11] MEDS: PANTOprazole 40 MG TAB PO SCH (05:34)
[2024-02-11 05:56] LABS: Basophils # (auto) 0.05 K/uL (0.00-0.20); Basophils % (auto) 0.5 %; Eosinophils # (auto) 0.13 K/uL (0.00-0.50); Eosinophils % (auto) 1.2 %; Hematocrit (blood only) 34.3 % (42.0-52.0); Hemoglobin 11.6 g/dl (14.0-18.0); Immature Granulocytes # (auto) 0.05 K/uL (0.01-0.20); Immature Granulocytes % (auto) 0.5 %; Lymphocytes # (auto) 2.27 K/uL (1.20-3.40); Lymphocytes % (auto) 21.7 %; Mean Corpuscular Hemoglobin 28.6 pg (25.0-34.0); Mean Corpuscular Hgb Conc 33.8 g/dL (32.0-36.0); Mean Corpuscular Volume 84.7 fL (80.0-100.0); Mean Platelet Volume 9.4 fL (9.4-12.4); Monocytes # (auto) 0.86 K/uL (0.11-0.59); Monocytes % (auto) 8.2 %; Neutrophils # (auto) 7.08 K/uL (1.40-6.50); Neutrophils % (auto) 67.9 %; Platelet Count 252 K/uL (130-400); RDW Coefficient of Variation 15.3 % (11.5-14.5); RDW Standard Deviation 47.3 fL (36.4-46.3); Red Blood Count 4.05 M/uL (4.70-6.10); White Blood Count 10.44 K/ul (4.8-10.8)
[2024-02-11 06:04] LABS: BUN Creatinine Ratio 21.6 (10-20); Calcium 8.4 mg/dl (8.6-10.3); Est GFR (African American) 87.7 ml/min; Est GFR (Non-African American) 75.7 ml/min; Magnesium 1.9 mg/dl (1.7-2.4)
[2024-02-11 06:11] LABS: Troponin I High Sensitivity 5.9 pg/ml (0-20)
[2024-02-11] MEDS ORDERED: bisacodyL 10 MG SUPP PR PRN (08:24)
[2024-02-11] MEDS: FLUTICASONE PROPIONATE NA SPR 16 GM BTL SCH (08:31)
[2024-02-11] MEDS: MULTIVITAMIN TAB PO SCH (08:31)
[2024-02-11] MEDS: CEROVITE ADV FORMULA TAB PO SCH (08:31)
[2024-02-11] MEDS: METHYLCELLULOSE POWDER 454 GM JAR PO SCH (08:31)
[2024-02-11 08:39] LABS: Estimated Average Glucose 171 mg/dl; Hemoglobin A1C 7.6 % (4.5-5.6)
--- NOTE | 2024-02-11 09:12 | Cardiology Consultation ---
Date of Consultation February 11, 2024 Assessment & Plan (1) Chest pain: (2) Hypertension: (3) Cervical spine arthritis with nerve pain: Plan Patient admitted with epigastric/chest pain radiating down both arms. EKG demonstrated NSR without ischemic changes x2. HS troponin negative x3. Symptoms started after taking 2 days of high dose prednisone for possible viral illness. Symptoms without significant improvement with SL nitro or nitro patch. D/C nitro patch this morning due to headache. Echo report is pending Given cardiac risk factors including DM, HTN, Dyslipidemia, prior tobacco abuse, recommend ischemic work up with dobutamine stress echocardiogram. Given his chronic neck pain with radiculopathy, patient does not feel he would adequately ambulate on a treadmill Further recommendations pending review of dobutamine stress echo. Consider GI or musculoskeletal etiology. IV morphine aided his symptoms in the ER. Abd/GB US unremarkable. In the meantime, continue ASA 81 mg daily, atorvastatin, and lisinopril. Case discussed with Dr. Snider I spent a total of 55 minutes on the date of service in preparation, delivery, and documentation of the care provided to this patient, excluding any time spent in the performance of separately billed services. Rosa Fajardo PA-C Department of Cardiology, [facility] This chart was completed in part utilizing Speech Voice Recognition Software. Grammatical errors, random word insertions, pronoun errors, and incomplete sentences are an occasional consequence of this system due to software limitations, ambient noise, and hardware issues. Any formal questions or concerns about the content, text, or information contained within the body of this dictation should be directly addressed to the provider for clarification. Supervising Physician Co-Signing Physician Notes I have personally performed a history and physical examination on the patient. I have reviewed the advance practitioner's documentation, and I agree with, and take responsibility for the plan of care. 68-year-old male seen and examined after dobutamine stress echo. Stress test demonstrating sustained ventricular tachycardia with worsening chest discomfort. Basal and mid septal hypokinesis noted on stress imaging. Findings suggestive of ischemic heart disease. VT resolved with administration of beta-radha therapy. Recommend left heart catheterization with coronary angiography for further evaluation. Risk, benefits, alternatives to procedure discussed. Patient agreeable to proceed. Findings recommendations discussed with family as well. Further recommendations pending result of cardiac catheterization. I spent a total of 40 minutes on the date of service in preparation, delivery, and documentation of the care provided to this patient, excluding any time spent in the performance of separately billed services. History of Present Illness Reason for Consultation: Chest pain Requesting Physician: Dr. Mcpherson Attending Physician: Dr. Snider History of Present Illness Patient is a 68 year old male admitted with chest pain, radiating to b/l arms and dyspnea. EMS was summoned. Patient had 4 SL nitro on route to ER without improvement. Received morphine in ER with improvement. Earlier this week patient thought he had a viral respiratory illness with increased SOB, cough and myalgias. Saw PCP office and started on prednisone. Also thought he had food poisoning on Friday from spoiled chicken, became dehydrated with intermittent dizziness. In ER, EKG on arrival demonstrated NSR, without acute ischemic changes. HS troponin negative x3 since admission. D. Dimer negative. Patient also complained of significant epigastric pain. Abd US and GB US were unremarkable. Patient reports he had a "heart attack" in 2001 when he came to the ER for chest pain. He had a stress test that was normal. No cardiac catheterization performed and he reports no cardio follow up. History includes: 1. Diabetes mellitus type 2 2. Hypertension 3. Dyslipidemia 4. Chronic neck pain with cervical spinal stenosis/spondylosis and radiculopathy with upper extremity weakness 5. GERD At time of consult, patient resting in bed comfortably. Ongoing 3/10 chest tightness reported. Pain mildly reproducible with palpation to the epigastric region and left chest wall. Mild SOB reported. No cough, fever, chills. Has a headache from the nitro ointment. he has dizziness if he stands too quickly but no syncope or near syncope. Ongoing cervical spinal pain noted. Awaiting possible surgery later this summer. He does report mild chest tightness this morning when he was shoveling snow in the cold weather. Would resolve with rest. He is otherwise fairly active on a regular basis. Limiting factor is significant neck pain radiating down both arms with upper extremity weakness. Allergies Allergy/AdvReac Type Severity Reaction Status Date / Time No Known Allergies Allergy Unknown Verified 02/10/24 17:07 Home Medications Medication Instructions Recorded Confirmed Type aspirin 81 mg tablet,delayed 81 mg PO QDD 08/13/18 02/10/24 History release (Nga Low Dose Aspirin) atorvastatin 80 mg tablet 80 mg PO HS 08/13/18 02/10/24 History fexofenadine 180 mg tablet 180 mg PO QDD 08/13/18 02/10/24 History fluticasone propionate 50 1 spray intranasal QAM 08/13/18 02/10/24 History mcg/actuation nasal spray,suspension (Flonase Allergy Relief) lisinopril 20 mg tablet 20 mg PO QPM 08/13/18 02/10/24 History magnesium 250 mg tablet 250 mg PO QDD 08/13/18 02/10/24 History metformin 500 mg tablet 500 mg PO BIDM 08/13/18 02/10/24 History multivitamin 1 tab PO QAM 08/13/18 02/10/24 History omega 3-vqa-npj-fish oil 1,000 mg 1 cap PO .QLUNCH 08/13/18 02/10/24 History (120 mg-180 mg) capsule (Fish Oil) potassium gluconate 550 mg (90 mg) 550 mg PO QDD 08/13/18 02/10/24 History tablet diclofenac sodium 1 % topical gel 1 g topical QID 02/10/24 02/10/24 History (Voltaren Arthritis Pain) esomeprazole magnesium 20 mg 20 mg PO DAILYBB 02/10/24 02/10/24 History capsule,delayed release (Nexium) methylcellulose (laxative) 500 mg 500 mg PO DAILY 02/10/24 02/10/24 History tablet (Citrucel) naproxen 500 mg tablet 500 mg PO AMHS 02/10/24 02/10/24 History ondansetron 4 mg disintegrating 4 mg translingual Q8 PRN Nausea 02/10/24 02/10/24 History tablet prednisone 10 mg tablet 10 mg PO .TAPER DIRECTED 02/10/24 02/10/24 History semaglutide 3 mg tablet (Rybelsus) 3 mg PO DAILY 02/10/24 02/10/24 History semaglutide 7 mg tablet (Rybelsus) 7 mg PO .DAILY DIRECTED 02/10/24 02/10/24 History vit C 250 mg-vit E 90 mg-zinc 40 1 tab PO BID 02/10/24 02/10/24 History mg-copper 1 pl-plhkqq-kadale capsule (PreserVision AREDS-2) Patient History Medical History Finger avulsion middle right finger and reattached Non-insulin dependent type 2 diabetes mellitus Obesity (BMI 35.0-39.9 without comorbidity) Diabetes Seasonal allergies Hypertension High cholesterol Surgical History Hx of colonoscopy Hx of hernia repair as child Social History Smoking Status: Former smoker Tobacco Type: Cigarettes Hx Alcohol Use: Yes Alcohol type: beer Hx Substance Use: No Preferred Language: Persian Communication Ability: Effective Clinical Psychology Professor Required: No Beliefs That Will Affect Care: None Current Living Situation: Spouse Other Information That Helps Us Care for You: No Feels Safe at Home: No Is there a partner from a previous relationship who is making you feel unsafe now?: No Any Concerns about Your Family Situation: No Would You Like to Speak to Someone About Your Situation: No Safety Concerns: Feels Safe At This Time Assistive Devices: None Review of Systems Review of Systems: All systems reviewed & are unremarkable except as noted in HPI & below Physical Exam Constitutional: well developed and + obese; no acute distress Neck: + thick neck Respiratory: normal respiratory effort Auscultation: + diminished lung sounds and + wheezes Cardiovascular: Rate/Rhythm: regular rate and regular rhythm Heart Sounds: normal S1 and normal S2; no murmur Vessels: no JVD Extremities: + edema (trace pretibial edema) Gastrointestinal (Abdomen): normal bowel sounds, soft, nontender, no hepatosplenomegaly Neurologic: PERRL, EOMI, accommodation nl, no face palsy, no dysarthria Psychiatric: A+Ox3, euthymic affect Results & Data Vital Signs (Past 12 Hours) Vital Signs Temp Pulse Pulse Pulse Resp BP Pulse Ox 02/11/24 08:04 02/11/24 07:51 36.4 C L 72 18 122/69 96 02/11/24 06:59 65 02/11/24 02:45 36.7 C 68 19 121/62 94 02/10/24 22:37 02/10/24 21:47 36.5 C 73 19 123/65 95 02/10/24 21:46 76 02/10/24 21:43 02/10/24 21:43 36.5 C 73 19 123/65 95 02/10/24 21:20 36.7 C 70 18 121/73 98 Pulse Ox O2 Del Method O2 Del Method O2 Flow Rate 02/11/24 08:04 Nasal Cannula 2 02/11/24 07:51 Room Air 02/11/24 06:59 02/11/24 02:45 Nasal Cannula 2 02/10/24 22:37 Nasal Cannula 2 02/10/24 21:47 Room Air 02/10/24 21:46 02/10/24 21:43 95 Room Air 02/10/24 21:43 Room Air 02/10/24 21:20 Room Air Laboratory Results Cardiac Enzymes 02/10/24 02/10/24 02/11/24 Range/Units 16:24 20:40 05:17 AST 14 (13-39) U/L Troponin I High Sens 4.2 5.5 5.9 (0-20) pg/ml Coagulation 02/10/24 Range/Units 16:24 PT 10.9 (9.0-12.0) Seconds APTT 26 (21-31) Seconds CBC 02/10/24 02/11/24 Range/Units 16:24 05:17 WBC 11.08 H 10.44 (4.8-10.8) K/ul RBC 4.46 L 4.05 L (4.70-6.10) M/uL Hgb 12.7 L 11.6 L (14.0-18.0) g/dl Hct 37.1 L 34.3 L (42.0-52.0) % Plt Count 273 252 (130-400) K/uL Neut # (Auto) 9.48 H 7.08 H (1.40-6.50) K/uL Lymph # (Auto) 0.88 L 2.27 (1.20-3.40) K/uL [place] # (Auto) 0.64 H 0.86 H (0.11-0.59) K/uL Eos # (Auto) 0.00 0.13 (0.00-0.50) K/uL Baso # (Auto) 0.01 0.05 (0.00-0.20) K/uL Comprehensive Metabolic Panel 02/10/24 02/11/24 Range/Units 16:24 05:17 Sodium 137 139 (136-145) mmol/L Potassium 4.8 4.0 (3.5-5.1) mmol/L Chloride 104 108 H (98-107) mmol/L Carbon Dioxide 25 26 (21-32) mmol/L BUN 26 H 22 (6-23) mg/dl Creatinine 1.13 1.02 (0.6-1.4) mg/dl Glucose 372 H* 138 H (70-99(Fasting)) mg/dl Calcium 9.0 8.4 L (8.6-10.3) mg/dl Direct Bilirubin 0.1 (0-0.2) mg/dl AST 14 (13-39) U/L ALT 20 (7-52) U/L Alkaline Phosphatase 75 (34-104) U/L Total Protein 6.6 (6.0-8.3) gm/dl Albumin 4.0 (3.4-5.0) gm/dl Intake and Output 02/10/24 02/11/24 02/11/24 22:59 06:59 14:59 Intake Total 1300 / 1300 Balance 1300 / 1300 Intake: IV 1000 / 1000 Sodium Chloride 0.9% 1,000 ml @ 1000 / 1000 999 mls/hr IV .Q1H1M ONE Rx#: [id number] Oral 300 / 300 Other: Other Intake Source npo # Unmeasured Voids 1 Weight 116.1 kg Weight Measurement Method Standing Scale Diagnostic Findings Telemetry reviewed: NSR in the 60-80's. Occ PVC EKG reviewed from admission 02/09: NSR with LAD Poor R wave progression No acute ischemic changes EKG reviewed from 02/10: NSR with 1st degree AV block. No acute ST/T wave abnormalities. Chest xray: No acute process GB US reviewed: IMPRESSION: No acute abnormalities and in particular no evidence of acute cholecystitis. Hepatic steatosis is seen. Medications Administered Current Inpatient Medications Acetaminophen (Acetaminophen 325 Mg Tab) 650 mg PO Q4H PRN PRN Reason: Pain or Fever Stop: 03/11/24 21:42 Aspirin (Aspirin 81 Mg Ectab) 81 mg PO QDD KAREN Stop: 03/12/24 16:29 Atorvastatin Calcium (Atorvastatin 40 Mg Tab) 80 mg PO HS KAREN Stop: 03/11/24 21:42 Last Admin: 02/10/24 22:24 Dose: 80 mg Bisacodyl (Bisacodyl 10 Mg Supp) 10 mg VA DAILY PRN PRN Reason: Constipation Stop: 03/12/24 08:23 Dextrose (Dextrose 50% 50 Ml Syringe) 25 - 50 ml IV UD PRN; Protocol PRN Reason: Hypoglycemia Protocol Stop: 03/11/24 21:42 Fexofenadine HCl (Fexofenadine Hcl 180 Mg Tab) 180 mg PO QDD KAREN Stop: 03/12/24 16:29 Fluticasone Propionate (Fluticasone Propionate Na Spr 16 Gm Btl) 1 sprays NA QAM KAREN Stop: 03/12/24 08:59 Last Admin: 02/11/24 08:31 Dose: 1 sprays Glucagon (Glucagon For Inj 1 Mg Vial) 1 mg SQ UD PRN; Protocol PRN Reason: Hypoglycemia Protocol Stop: 03/11/24 21:42 Glucose (Glucose 40% Gel 15 Gm Tube) 15 - 30 gm PO UD PRN; Protocol PRN Reason: Hypoglycemia Protocol Stop: 03/11/24 21:42 Glucose (Glucose 10 Tab/Tube) 4 - 8 tab PO UD PRN; Protocol PRN Reason: Hypoglycemia Treatment Stop: 03/11/24 21:42 Sodium Chloride (Nss) 1,000 mls @ 80 mls/hr IV .[id number] KAREN Stop: 02/11/24 22:59 Last Admin: 02/10/24 22:25 Dose: 80 mls/hr Insulin Aspart (Insulin Aspart Per Unit Charge) 0 units SC Q6H KAREN Stop: 03/12/24 00:00 Last Admin: 02/11/24 05:35 Dose: Not Given Lactulose (Lactulose Syrup 20 Gm/30 Ml Udc) 20 gm PO TID KAREN Stop: 02/11/24 21:01 Lisinopril (Lisinopril 20 Mg Tab) 20 mg PO QPM KAREN Stop: 03/11/24 21:42 Last Admin: 02/10/24 22:24 Dose: 20 mg Magnesium Oxide (Magnesium Oxide 400 Mg Tab) 200 mg PO QDD [facility] Stop: 03/12/24 16:29 Methylcellulose (Methylcellulose Powder 454 Gm Jar) 19 gm PO DAILY KAREN Stop: 03/12/24 08:59 Last Admin: 02/11/24 08:31 Dose: 19 gm Miscellaneous (Carbohydrates For Hypoglycemia ) 15 - 30 gm PO UD PRN PRN Reason: Hypoglycemia Protocol Stop: 03/11/24 21:42 Morphine Sulfate (Morphine Sulfate 2 Mg/Ml Carp) 2 mg IV Q30M PRN PRN Reason: Chest Pain Stop: 02/24/24 21:42 Last Admin: 02/11/24 08:30 Dose: 2 mg Multivitamins (Multivitamin Tab) 1 tab PO QAM [facility] Stop: 03/12/24 08:59 Last Admin: 02/11/24 08:31 Dose: 1 tab Multivitamins/Minerals (Cerovite Adv Formula Tab) 1 tab PO DAILY [facility] Stop: 03/12/24 08:59 Last Admin: 02/11/24 08:31 Dose: 1 tab Nitroglycerin (Nitroglycerin Sl 0.4 Mg/Tab Tab) 0.4 mg SL Q5M PRN PRN Reason: Chest Pain Stop: 03/11/24 21:42 Ondansetron HCl (Ondansetron Inj 2 Mg/Ml 2 Ml Vial) 4 mg IV Q6H PRN PRN Reason: Nausea Stop: 03/11/24 21:42 Pantoprazole Sodium (Pantoprazole 40 Mg Tab) 40 mg PO DAILYBB [facility] Stop: 03/12/24 06:29 Last Admin: 02/11/24 05:34 Dose: 40 mg (1) Chest pain Chest pain type: unspecified Qualified Code(s): R07.9 - Chest pain, unspecified
--- NOTE | 2024-02-11 09:51 | Electrocardiogram Report ---
Test Reason : Blood Pressure : / mmHG Vent. Rate : 091 BPM Atrial Rate : 091 BPM P-R Int : 206 ms QRS Dur : 092 ms QT Int : 344 ms P-R-T Axes : 056 -57 037 degrees QTc Int : 423 ms Normal sinus rhythm Left axis deviation Poor R wave progression, consider anterior IN vs. lead placement vs. LVH Incomplete right bundle branch block Abnormal ECG When compared with ECG of 01-AUG-2023 15:27, QRS axis Shifted left Confirmed by Chacorta Whittington ([id number]) on 02/11/2024 9:51:12 AM Referred By: REFERRED SELF Confirmed By:Stan Whittington
--- NOTE | 2024-02-11 09:58 | Electrocardiogram Report ---
Test Reason : Blood Pressure : / mmHG Vent. Rate : 062 BPM Atrial Rate : 062 BPM P-R Int : 210 ms QRS Dur : 088 ms QT Int : 382 ms P-R-T Axes : 038 -41 -08 degrees QTc Int : 387 ms Poor data quality, interpretation may be adversely affected Sinus rhythm with 1st degree A-V block Left axis deviation Abnormal ECG When compared with ECG of 10-FEB-2024 16:22, (unconfirmed) Nonspecific T wave abnormality now evident in Inferior leads Confirmed by Chacorta Whittington ([id number]) on 02/11/2024 9:58:00 AM Referred By: REFERRED SELF Confirmed By:Stan Whittington
[2024-02-11] MEDS: LACTULOSE SYRUP 20 GM/30 ML UDC PO SCH (10:10)
[2024-02-11] MEDS ORDERED: Nursing to Pharmacy Communication SCH ×2 (10:15→17:15)
[2024-02-11] MEDS: ATROPINE SULFATE 0.1 MG/ML 10ML SYR IV ONE (13:56)
[2024-02-11] MEDS: DOBUTamine HCL 12.5 MG/ML 20 ML VIAL IV ONE (13:56)
[2024-02-11] MEDS: METOPROLOL TARTRATE 1 MG/ML VIAL IV ONE (13:57)
--- NOTE | 2024-02-11 14:03 | Pre Anesthesia Assessment ---
Date of Service February 11, 2024 Pre Sedation Assessment Vital Signs Temp Pulse Pulse Pulse Resp BP BP 02/11/24 13:28 37.2 C 77 76 14 144/79 H 02/11/24 11:24 36.8 C 70 18 116/73 02/11/24 08:04 02/11/24 07:51 36.4 C L 72 18 122/69 02/11/24 06:59 65 02/11/24 02:45 36.7 C 68 19 121/62 02/10/24 22:37 02/10/24 21:47 36.5 C 73 19 123/65 02/10/24 21:46 76 02/10/24 21:43 02/10/24 21:43 36.5 C 73 19 123/65 02/10/24 21:20 36.7 C 70 18 121/73 02/10/24 20:14 71 02/10/24 19:17 73 18 129/66 02/10/24 17:46 91 H 02/10/24 16:29 02/10/24 16:28 36.9 C 90 20 175/73 H Pulse Ox Pulse Ox O2 Del Method O2 Del Method O2 Flow Rate 02/11/24 13:28 95 Room Air 02/11/24 11:24 93 Room Air 02/11/24 08:04 Nasal Cannula 2 02/11/24 07:51 96 Room Air 02/11/24 06:59 02/11/24 02:45 94 Nasal Cannula 2 02/10/24 22:37 Nasal Cannula 2 02/10/24 21:47 95 Room Air 02/10/24 21:46 02/10/24 21:43 95 Room Air 02/10/24 21:43 95 Room Air 02/10/24 21:20 98 Room Air 02/10/24 20:14 02/10/24 19:17 97 Room Air 02/10/24 17:46 02/10/24 16:29 95 Room Air 02/10/24 16:28 96 Room Air Cardiovascular + regular rate and + regular rhythm + S1 normal and + S2 normal; no murmur + femoral pulses present and + radial pulses present; no JVD and no carotid bruit no edema Respiratory no respiratory distress, no labored breathing and no retractions no crackles, no rales, no rhonchi and no wheezes Pre-Sedation Airway Assessment Smoking Status: Former smoker Hx Sleep Apnea: No Short, Thick Neck: No Thyromental Distance: > or= 3.5 Finger Breadths Oral Cavity: + Dentures Mallampati Class: III ASA: ASA3 NPO Status Date of Last Intake of Fluids: 02/10/24 Time of Last Intake of Fluids: 22:00 Date of Last Intake of Solid Food: 02/10/24 Time of Last Intake of Solid Foods: 21:00 Procedure Planning Contraindications for Sedation: none Current Medications Reviewed: No Notes The planned sedation has been discussed with the patient. Informed Consent was obtained. I have identified the patient, determined the appropriateness of sedation and have assessed the patient immediately prior to the procedure. All medicine(s) and interventions are by my order.
[2024-02-11] MEDS: niCARdipine HCL INJ 2.5 MG/ML 10 ML AMP ONE (14:14)
[2024-02-11] MEDS: IODIXANOL (VISIPAQUE) 320 MG/ML 100ML IV ONE (14:15)
[2024-02-11] MEDS: NITROGLYCERIN/D5W 100MCG/ML 20ML SYR ONE (14:15)
--- NOTE | 2024-02-11 14:40 | Post Anesthesia Assessment ---
Date of Service February 11, 2024 Post Sedation Assessment Vital Signs Temp Pulse Pulse Pulse Resp BP BP 02/11/24 13:28 37.2 C 77 76 14 144/79 H 02/11/24 11:24 36.8 C 70 18 116/73 02/11/24 08:04 02/11/24 07:51 36.4 C L 72 18 122/69 02/11/24 06:59 65 02/11/24 02:45 36.7 C 68 19 121/62 02/10/24 22:37 02/10/24 21:47 36.5 C 73 19 123/65 02/10/24 21:46 76 02/10/24 21:43 02/10/24 21:43 36.5 C 73 19 123/65 02/10/24 21:20 36.7 C 70 18 121/73 02/10/24 20:14 71 02/10/24 19:17 73 18 129/66 02/10/24 17:46 91 H 02/10/24 16:29 02/10/24 16:28 36.9 C 90 20 175/73 H Pulse Ox Pulse Ox O2 Del Method O2 Del Method O2 Flow Rate 02/11/24 13:28 95 Room Air 02/11/24 11:24 93 Room Air 02/11/24 08:04 Nasal Cannula 2 02/11/24 07:51 96 Room Air 02/11/24 06:59 02/11/24 02:45 94 Nasal Cannula 2 02/10/24 22:37 Nasal Cannula 2 02/10/24 21:47 95 Room Air 02/10/24 21:46 02/10/24 21:43 95 Room Air 02/10/24 21:43 95 Room Air 02/10/24 21:20 98 Room Air 02/10/24 20:14 02/10/24 19:17 97 Room Air 02/10/24 17:46 02/10/24 16:29 95 Room Air 02/10/24 16:28 96 Room Air Recovery Score Activity: Moves 4 extremities Respiration: Deep Breath/Cough Circulation: +/-20% PreAnes Value Consciousness: Arouseable (by name) Oxygen Saturation: > 92% On Room Air Discharge Sedation Level of Care: Phase I Post Sedation Plan On clinical assessment, the patient appears to have tolerated the sedation without complications. Patient is recovering as anticipated. Patient will continue to be monitored by nursing and may be discharged when sedation discharge criteria are met per below protocol. Upon Completions of procedure up to 15 minutes continue every 5 minute vital signs and the P.A.R. score; then discharge to a Phase I or Fast Track to Phase II per the following guidelines: * Discharge Patient to appropriate Phase II area if PAR is 8 or greater or return to pre- procedure baseline. The post - procedure orders will be as directed. * If PAR score is less than 8 or not return to pre-procedure baseline then patient will follow Phase I monitoring till PAR is reached for Phase II. The Phase I may be done in procedure room or may call to secure a Phase I area. * If naloxone or flumazenil are used for reversal, hold in Phase I for continued monitoring from when last reversal dose was given for a minimum of 60 minutes or longer pending the nurse and/or physician discretion of patient condition before discharge to Phase II. Please call the Sedation Physician to re-evaluate and complete post-note for discharge to Phase II area. Do NOT discharge from procedure sedation or Phase 1 until post- sedation evaluation note is complete by procedure /sedation MD Sedation Discharge Instructions to be given to the patient at discharge to home.
--- NOTE | 2024-02-11 14:48 | Cardiac Catheterization ---
Cardiac Cath Procedure Full Procedure Date February 11, 2024 Pre-Procedure Diagnosis Pre-Procedure Diagnosis: Angina, Positive Stress Test and Arrhythmia (Ventricular tachycardia) AUC Score AUC Score: 8 Post-Procedure Diagnosis Post-Procedure Diagnosis: Severe CAD and Elevated Intracardiac Pressures Procedure(s) Performed Procedure(s) Performed: Coronary Angiography and Left Heart Cath Change Management Consultant William Snider DO Typing Checker(s) [employer] HAND BRAILLE TRANSCRIBER Estimated Blood Loss Estimated Blood Loss: 5cc Summary of Findings 80% mid LAD 100% proximal RCA (STE[employer] AND G[employer] TURBINES ASSEMBLER) fills via right to left collaterals. Hemodynamics Rest Ao:: 103/61/80 Final Ao: 113/60/84 LV: 110/07/22 Recommendations Recommendations: PCI without planned CABG (Interventional cardiology consulted for further recommendations.) Specimens Specimens: None Radiation Exposure (mGy) 1218 Contrast (mls) 60 Fluids (cc crystalloids) Fluids (cc crystalloids): 95 Nss Drains Drains: N/A Anesthesia Moderate Sedation. Start 1412. End 1456. Sedation monitor: Tish KNIGHT Procedural Complication(s) None Disposition Patient remained in Magnesium Mill Operator for PCI of LAD. I attest to the content of the Intraoperative Record and any orders documented therein. Any exceptions are noted below. ACC Data: Magnesium Mill Operator Cardiac Status Clinical evaluation leading to the procedure CAD Presenation: Positive Stress Test Anginal Classification: CCS IV Coronary Anatomy Dominant: Right LAD (% Stenosis): Ostial (30%), Proximal (20%) and Mid (80%) D1 (% Stenosis): Proximal (100%, fills late via collaterals) Circumflex (% Stenosis): Mid (30%) OM1 (% Stenosis): Proximal (30% large vessel) OM2 (% Stenosis): Ostial (20%) and Mid (luminal irregularities, 10%) RCA (% Stenosis): Proximal (100%) Diagnostic Physicians Name: William Snider DO Closure Device Percutaneous Entry Location: Radial Closure Device: Radial Band Recommendations: PCI without planned CABG (Interventional cardiology consulted for further recommendations.) Intraprocedure Events Significant Disection: No Perforation: No
[2024-02-11] MEDS: MIDAZOLAM HCL 1 MG/ML 2ML VIAL ONE ×2 (15:49→15:50)
[2024-02-11] MEDS: fentaNYL citrate PF 100 MCG/2 ML VIAL ONE (15:49)
[2024-02-11] MEDS: HEPARIN (PORCINE) 1000 UNIT/ML 10 ML (CATH LAB USE ONLY) ONE ×2 (15:49→15:51)
[2024-02-11] MEDS: OPTIRAY 350 ONE (15:49)
[2024-02-11] MEDS: TICAGRELOR 90 MG TAB ONE (15:51)
--- NOTE | 2024-02-11 16:10 | Post Anesthesia Assessment ---
Date of Service February 11, 2024 Post Sedation Assessment Vital Signs Temp Pulse Pulse Pulse Resp BP BP 02/11/24 13:28 37.2 C 77 76 14 144/79 H 02/11/24 11:24 36.8 C 70 18 116/73 02/11/24 08:04 02/11/24 07:51 36.4 C L 72 18 122/69 02/11/24 06:59 65 02/11/24 02:45 36.7 C 68 19 121/62 02/10/24 22:37 02/10/24 21:47 36.5 C 73 19 123/65 02/10/24 21:46 76 02/10/24 21:43 02/10/24 21:43 36.5 C 73 19 123/65 02/10/24 21:20 36.7 C 70 18 121/73 02/10/24 20:14 71 02/10/24 19:17 73 18 129/66 02/10/24 17:46 91 H 02/10/24 16:29 02/10/24 16:28 36.9 C 90 20 175/73 H Pulse Ox Pulse Ox O2 Del Method O2 Del Method O2 Flow Rate 02/11/24 13:28 95 Room Air 02/11/24 11:24 93 Room Air 02/11/24 08:04 Nasal Cannula 2 02/11/24 07:51 96 Room Air 02/11/24 06:59 02/11/24 02:45 94 Nasal Cannula 2 02/10/24 22:37 Nasal Cannula 2 02/10/24 21:47 95 Room Air 02/10/24 21:46 02/10/24 21:43 95 Room Air 02/10/24 21:43 95 Room Air 02/10/24 21:20 98 Room Air 02/10/24 20:14 02/10/24 19:17 97 Room Air 02/10/24 17:46 02/10/24 16:29 95 Room Air 02/10/24 16:28 96 Room Air Recovery Score Activity: Moves 4 extremities Respiration: Deep Breath/Cough Circulation: +/-20% PreAnes Value Consciousness: Arouseable (by name) Oxygen Saturation: > 92% On Room Air Discharge Sedation Level of Care: Fast Track Phase II Post Sedation Plan On clinical assessment, the patient appears to have tolerated the sedation without complications. Patient is recovering as anticipated. Patient will continue to be monitored by nursing and may be discharged when janet tion discharge criteria are met per below protocol. Upon Completions of procedure up to 15 minutes continue every 5 minute vital signs and the P.A.R. score; then discharge to a Phase I or Fast Track to Phase II per the following guidelines: * Discharge Patient to appropriate Phase II area if PAR is 8 or greater or return to pre- procedure baseline. The post - procedure orders will be as directed. * If PAR score is less than 8 or not return to pre-procedure baseline then patient will follow Phase I monitoring till PAR is reached for Phase II. The Phase I may be done in procedure room or may call to secure a Phase I area. * If naloxone or flumazenil are used for reversal, hold in Phase I for continued monitoring from when last reversal dose was given for a minimum of 60 minutes or longer pending the nurse and/or physician discretion of patient condition before discharge to Phase II. Please call the Sedation Physician to re-evaluate and complete post-note for discharge to Phase II area. Do NOT discharge from procedure sedation or Phase 1 until post- sedation evaluation note is complete by procedure /sedation MD Sedation Discharge Instructions to be given to the patient at discharge to home. [facility] Procedure Codes (Charges) Indication for Procedure Indication for procedure: Unstable angina Ventricular tachycardia Multivessel coronary artery disease Sedation/Anesthesia Procedure 1: Sedation/Anesthesia: 12258 Mod Sedation by a different physician ;Init15 Min Child Age 5&Up (Initial 15 min, dredge pump operator start 1456) Total Sedation Time (minutes): 46 Procedure 2: Sedation/Anesthesia: 87394 Mod Sedation by a different physician;Ea Additional 15 Minutes (Additional 31 minutes dredge pump operator, stop time 1542) Total Sedation Time (minutes): 46
--- NOTE | 2024-02-11 16:16 | Cardiac Catheterization ---
[facility] Data: Meter Record Clerk Cardiac Status Clinical evaluation leading to the procedure CAD Presenation: Unstable angina Anginal Classification: CCS III Heart Failure: No Cardiogenic Shock within 24 Hours: No Cardiac Arrest within 24 Hours: No Stress Studies Past 6 Months: Yes Stress Echocardiogram: Yes - Positive Coronary Anatomy Dominant: Right (See Dr. Snider report for diagnostic coronary findings.) Diagnostic Physicians Name: Mickey Cagle MD, PhD Closure Device Percutaneous Entry Location: Radial Closure Device: Radial Band Recommendations: Medical Therapy and/or Counseling and PCI without planned CABG PCI Indication: Unstable Angina Lesion Segment Name: Mid to distal LAD Culprit Artery: Yes Stenosis Prior to Rx (%): 70% Chronic Total Occlusion: No FFR: Yes Ratio: greater than 0.75% (iFR equals 0.87, 0.89, 0.91.) Pre-Procedure KANA Flow: 3 Previously Treated Lesion: No Lesion Complexity: Non-High/Non-C Lesion Length (mm): 12 Thrombus Present: No Bifurcation Lesion: No Guidewire Across Lesion: Yes Cardiac Cath Procedure Full Procedure Date February 11, 2024 Pre-Procedure Diagnosis Pre-Procedure Diagnosis: Angina, Positive Stress Test and Arrhythmia (Ventricular tachycardia) AUC Score AUC Score: 9 Post-Procedure Diagnosis Post-Procedure Diagnosis: Severe CAD Procedure(s) Performed Procedure(s) Performed: Drug Eluting Stent and Fractional Flow [place] Tender Mickey Cagle MD, PhD Help Desk Support(s) Maxine JACK Estimated Blood Loss Estimated Blood Loss: 5cc Medication(s) Medication(s): Fentanyl, Heparin, Nicardipine, Nitroglycerin and Versed Summary of Findings Brief description: Patient was already shaved and prepped in a sterile fashion having just undergone diagnostic cardiac cath performed by Dr. William Snider. There was a 6 Samoan radial artery glide sheath in place. ACT was checked and additional heparin was provided to maintain therapeutic anticoagulation. Patient received sedation with Versed and fentanyl. A 6 Samoan EBU 3.0 guide catheter was used to engage the left main coronary. An Omni Doppler wave wire was advanced through the guide catheter and positioned with the transducer just distal to the guide catheter tip. After normal saline flush, pressures were normalized. Guidewire was advanced such that the transducer was distal to the LAD lesion. iFR was sampled 3 times. iFR wire was then removed. Decision was made to proceed with PCI. BMW reversal guidewire was advanced through the guide catheter and positioned distally in the LAD. Lesion was predilated using a 2.5 x 12 mm trek balloon at 8 sin followed by a second inflation to 13 sin A 2.75 x 18 mm [place] drug-eluting stent was advanced across the lesion and then deployed at 14 sin. Stent balloon was removed. The proximal and midportion of the stent was postdilated with a 2.75 by 8 mm NC Neotrek balloon at 19 sin mid, 20 sin proximal. Balloon was removed and patient was provided intracoronary nitroglycerin. Final angiographic evaluation was performed in orthogonal views. Guidewire and guide catheter were subsequently removed. Patient was provided Brilinta 180 mg p.o. Radial sheath was removed and hemostasis was obtained using the TR band. Patient was hemodynamically stable and asymptomatic. He was returned to the recovery area. This ended the case. iFR and PCI findings: iFR 0.87, 0.89, and 0.91.-This appears to be hemodynamically significant. There is 0% residual stenosis post PCI No evidence of dissection or perforation post PCI KANA-3 flow post PCI Summary: 1. Angiographically borderline LAD lesion is found by IFR analysis to be hemodynamically significant. 2. Successful PCI of the LAD using a single drug-eluting stent. 3. Patient will be on dual antiplatelet therapy with aspirin 81 mg daily and Brilinta 90 mg p.o. twice daily. 4. Guideline directed medical therapy for secondary prevention of coronary disease per primary darklight inspector. Hemodynamics Rest Ao:: 117/68 mmHg Final Ao: 136/98 mm marked LV: Not performed Recommendations Recommendations: Medical Therapy and/or Counseling and PCI without planned CABG Specimens Specimens: None Radiation Exposure (mGy) 3552 mGy total for diagnostic and intervention. Fluoroscopy time 14.9 min Contrast (mls) 180 mL for diagnostic and intervention. Drains Drains: N/A Anesthesia 2 mg Versed, 25 mcg fentanyl. Start 1456, End 1542 Procedural Complication(s) None Disposition Patient remained in Meter Record Clerk for PCI of LAD. I attest to the content of the Intraoperative Record and any orders documented therein. Any exceptions are noted below. [employer] Card Cath Procedure Codes Cardiac Catheterization Procedure 1: Cardiovascular Cath Procedures: 17977 (Doppler) Pressure Wire Moderate Sedation Procedure 1: Sedation/Anesthesia: 79701 Mod Sedation by a different physician ;Init15 Min Child Age 5&Up (Initial 15 minutes secondary teacher, start 1456) Procedure 2: Sedation/Anesthesia: 63728 Mod Sedation by a different physician;Ea Additional 15 Minutes (Additional 31 minutes, secondary teacher. Stop 1540 to) Stenting Procedure 1: Cardiovascular Stent Procedures: 65997 Perc transcatheter placement of intracoronary stent(s), with ang (LAD) PG Care Time/CCT Total # of Minutes Spent Total Time Spent with Patient: Total time spent is greater than 50% in coordination of care (as documented) at patient's floor/unit and/or counseling patient:
[2024-02-11] MEDS ORDERED: NON-FORMULARY MEDICATION (Potassium Gluconate 550 mg (90 mg) Tablet) PO SCH (16:30)
--- NOTE | 2024-02-11 16:58 | Hospitalist Progress Note ---
Date of Service February 11, 2024 Assessment & Plan (1) Unstable angina pectoris due to coronary arteriosclerosis: (2) Steroid-induced gastritis: (3) CAD (coronary artery disease), grindstone coronary artery: (4) Musculoskeletal chest pain: (5) Diabetes mellitus type 2 with complications: (6) High cholesterol: Plan Patient presented to the emergency room with chest pain and his history consistent with unstable angina. Patient also seems to have alternate etiologies for chest pain including musculoskeletal and possibly gastric. Reviewed cardiology consultation Patient underwent stress testing today which was abnormal and subsequent cardiac cath with stenting of the LAD Continue post cardiac cath care Cardiac Meds as directed by cardiology Continued aggressive management of diabetes and dyslipidemia Patient reportedly was recently on steroids, may have component of gastr itis/esophagitis due to the steroids, start twice daily PPI Communication with cardiology Dr. Snider, anticipate uneventful postcardiac cath course possible discharge tomorrow Admission and Anticipated Discharge Date Admission Date: February 10, 2024 Subjective Patient continues with chest pain and discomfort. Denies nausea, denies shortness of breath. No interventions have really helped to this point. Patient reports he has been having symptoms for greater than a year. He reports classic anginal symptoms with exertion. However he has been putting this off as heartburn and taking Tums. He also does report though that sometimes the Tums significantly helps but does not take anything regularly for heartburn. 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 Physical Exam Physical Exam: Constitutional: Alert, mild distress HEENT: Mucous membranes moist. Lungs: Clear to auscultation, decreased, no wheezes rales or rhonchi CV: S1-S2, regular Chest: Reproducible chest tenderness along the costochondral sternal border bilaterally Abdomen: Soft, mild epigastric tenderness, nondistended, no guarding or rigidity Extremities: No significant edema Neuro: No focal deficits Psych: Cooperative, normal mood Results & Data Results & Data Vital Signs (Past 12 Hours) Vital Signs Temp Pulse Pulse Pulse Resp BP Pulse Ox 02/11/24 16:15 36.7 C 60 14 145/96 H 94 02/11/24 16:00 36.7 C 63 14 135/76 94 02/11/24 13:28 37.2 C 77 76 14 144/79 H 95 02/11/24 11:24 36.8 C 70 18 116/73 93 02/11/24 08:04 02/11/24 07:51 36.4 C L 72 18 122/69 96 02/11/24 06:59 65 O2 Del Method O2 Flow Rate 02/11/24 16:15 Room Air 02/11/24 16:00 Room Air 02/11/24 13:28 Room Air 02/11/24 11:24 Room Air 02/11/24 08:04 Nasal Cannula 2 02/11/24 07:51 Room Air 02/11/24 06:59 Diagnostic Findings Reviewed imaging, laboratory and diagnostic studies. Pertinent findings as below. Personally reviewed EKG, no acute ischemic changes, sinus rhythm Troponins negative times all sets Hemoglobin A1c 7.6% Dobutamine stress test positive for ischemia Cardiac cath report reviewed, LAD occlusion, stent placed Reviewed echocardiogram, no pulm hypertension, normal ejection fraction
[2024-02-11] MEDS: FEXOFENADINE HCL 180 MG TAB PO SCH (17:01)
[2024-02-11] MEDS: ASPIRIN 81 MG ECTAB PO SCH (17:02)
[2024-02-11] MEDS: MAGNESIUM OXIDE 400 MG TAB PO SCH (17:02)
[2024-02-11] MEDS: INSULIN ASPART PER UNIT CHARGE SC SCH (17:41)
--- NOTE | 2024-02-11 17:48 | Electrocardiogram Report ---
Test Reason : Blood Pressure : / mmHG Vent. Rate : 062 BPM Atrial Rate : 062 BPM P-R Int : 214 ms QRS Dur : 098 ms QT Int : 368 ms P-R-T Axes : 068 -47 030 degrees QTc Int : 373 ms Sinus rhythm with 1st degree A-V block Left axis deviation Abnormal ECG When compared with ECG of 11-FEB-2024 05:42, No significant change was found Confirmed by Chacorta Whittington ([id number]) on 02/11/2024 5:48:12 PM Referred By: REFERRED SELF Confirmed By:Stan Whittington
[2024-02-11] MEDS: TICAGRELOR 90 MG TAB PO SCH (20:06)
--- OUTSIDE RECORDS SUMMARY | 2024-02-11 23:21 | External Medical Summary | Summary of Care ---
Author Name Unknown Organization [facility] Address [address] [place] [address] Phone [phone] Care Team Providers Care Sales Ledger Administrator Name Role Phone Alonso Daigle MD Primary Care Provider [phone]- [phone] Reason for Visit * Reason Comments Acute Pt states that he is hurting everywhere, he states that he has possible food poison from a chicken he ate, since Friday Encounter Details Date Type Department Care Team (Late st Contact Info) Description 02/09/2024 10:40 AM EDT Office Visit [facility] [address] [place] [address] Nisa Goodrich PA-C [address] [place] [address] Type 2 diabetes mellitus with hemoglobin A1c goal of less than 7.0% ([facility])*; Chronic pain of both shoulders; Cervical spine pain; Viral illness; Nausea Allergies No known active allergiesdocumented as of this encounter (statuses as of 02/09/2024) Medications Medication Sig Dispensed Refills Start Date End Date Status ASPIRIN 81 MG OR TABS one tab by mouth daily 0 0 5 Active ONE DAILY MENS PO TABS 1 daily 0 6 Active FISH OIL 1000 MG PO CPDR 1 Daily 1 Cap 0 2 Active Magnesium 250 MG Tablet Take 1 Tablet by mouth in the morning. 9 Active Potassium Gluconate 550 MG TABS Take by mouth. 9 Active Diclofenac Sodium (VOLTAREN) 1 % gel Place 1 g topically on the skin 4 times a day. 3 Tube 1 0 Active Fexofenadine HCl 180 MG Oral Tablet (Amairani)Tyroneo ns:Chronic rhinitis Take 1 Tab by mouth daily. 90 Tab 3 1 Active Montelukast Sodium 10 MG Oral Tablet (Singulair)Indicat ions:COVID-19 Take 1 Tablet by mouth in the morning. 90 Tablet 3 4 Active metFORMIN HCl 1000 MG Oral Tablet (Glucophage) Take 1 Tablet by mouth 2 times a day with morning and evening meals. 180 Tablet 3 4 Active Turmeric Curcumin 500 MG Oral Capsule Take by mouth 2 times a day. Active PreserVision AREDS 2 Oral Tablet Chewable Take by mouth. Active Citrucel 500 MG Oral Tablet (Methylcellulose (Laxative)) Take 1 Tablet by mouth as needed for Constipation. Active Esomeprazole Magnesium 20 MG Oral Capsule Delayed Release (NexIUM) Take 1 Capsule by mouth daily before breakfast. Active Lisinopril 20 MG Oral Tablet (Prinivil)Indicati ons:HTN, goal below 140/90 TAKE ONE TABLET BY MOUTH EVERY DAY 90 Tablet 2 4 12/16/19 25 Active Atorvastatin Calcium 80 MG Oral Tablet (Lipitor) TAKE ONE TABLET BY MOUTH EVERY DAY 90 Tablet 2 4 12/16/19 25 Active Fluticasone Propionate 50 MCG/ACT Nasal Suspension (Flonase) ADMINISTER 2 SPRAYS INTO EACH NOSTRIL DAILY IN THE MORNING 48 g 2 4 12/16/19 25 Active Semaglutide 7 MG Oral Tablet (Rybelsus)Indicati ons:Type 2 diabetes mellitus with hemoglobin A1c goal of less than 7.0% (HCC) Take 7 mg by mouth daily first thing in the morning. Take 30 minutes before food and other medications. 90 Tablet 1 4 Active Rybelsus 3 MG Oral Tablet (Semaglutide)Indic ations:Type 2 diabetes mellitus with hemoglobin A1c goal of less than 7.0% (HCC) Take 3 mg by mouth daily first thing in the morning. Take 30 minutes before food and other medications. Take 3mg for 30 days then increase to 7mg tablets. 30 Tablet 4 Active Naproxen 500 MG Oral Tablet (Naprosyn)Indicati ons:Chronic pain of both shoulders,Cervical spine pain Take 1 Tablet by mouth in the morning and 1 Tablet before bedtime. With food.. 60 Tablet 5 4 Active Ondansetron 4 MG Oral Tablet Disintegrating (Zofran)Indication s:Nausea Place 1 Tablet on tongue every 8 hours as needed for Nausea. dissolve on tongue. 20 Tablet 4 Active predniSONE 10 MG Oral Tablet (Deltasone)Indicat ions:Viral illness Take 5 tabs for 2 days, 4 tabs for 2 days, 3 tabs for 2 days, 2 tabs for 2 days 1 tab for 2 days 30 Tablet 4 Active Benzonatate 100 MG Oral Capsule (Tessalon Perles)Indications :COVID-19 Take 1 Capsule by mouth 3 times a day as needed for Cough. Do not cut, crush, or chew. 50 Capsule 1 3 02/09/20 24 Discontinued Naproxen 500 MG Oral Tablet (Naprosyn)Indicati ons:Chronic pain of both shoulders,Cervical spine pain Take 1 Tablet by mouth in the morning and 1 Tablet before bedtime. With food.. 60 Tablet 5 4 02/09/20 24 Discontinued(Re fill) documented as of this encounter (statuses as of 02/09/2024) Active Problems Problem Noted Date Diagnosed Date Cervical spine pain 01/16/2024 Cervical spinal stenosis 01/16/2024 Spondylosis, cervical, with myelopathy 4 Chronic neck pain 01/16/2024 Upper extremity weakness 01/16/2024 Pre-op testing 01/16/2024 Primary osteoarthritis of left knee 05/05/2020 HTN, goal below 140/90 11/08/2014 Type 2 diabetes mellitus wit h hemoglobin A1c goal of less than 7.0% 12/05/2011 Overview: ICD-10 update of inactive term Dyslipidemia, goal LDL below 100 12/05/2011 Generalized osteoarthritis 04/06/2010 documented as of this encounter (statuses as of 02/09/2024) Resolved Problems Problem Noted Date Diagnosed Date Resolved Date HTN, goal below 130/80 08/21/201211/08 HTN, goal below 140/80 04/20/201208/21 Overview: Per HTN Protocol #27. HTN, goal below 130/80 12/05/201104/23 Overview: Per HTN Protocol #27. Secondary diabetes mellitus without mention of complication, not stated as uncontrolled, or unspecified 09/12/2011 12/05/2011 BMI 35-39 ISOLATED (SEE ACTUAL BMI) 02/12/2010 09/02/2023 Overview: Per Obesity Protocol, #19 historical VIRAL INFLUENZA-LIKE ILLNESS 08/08/2009 12/05/2011 DIZZINESS 08/08/2009 12/05/2011 Myalgia and myositis 08/08/2009 012 Acute URI 08/08/2009 10/23/2009 Overview: Modified by Acute Dx Protocol #3. VIRAL INFLUENZA-LIKE ILLNESS 08/08/2009 12/05/2011 Elevated blood pressure, situational 08/08/2009 12/05/2011 ADVANCE DIRECTIVE INFORMATION 12/05/2005 03/24/2019 Overview: No, Advance Directive brochure given to patient. Dyslipidemia, goal to be determined 08/23/2002 12/05/2011 Sebaceous cyst 09/14/2001 12/05/2011 Malaise and fatigue 01/18/2000 12/05/19 12 documented as of this encounter (statuses as of 02/09/2024) Immunizations Name Administration Dates Next Due COVID-19 mRNA, LNP-s, No Pre serve, 2-Dose Series (Vtrim) 07/30/2021,11/30/2020,11/09/2020 COVID-19, MRNA-LNP, 23-24, P F, 30 MCG/0.3 mL, 12 YRS AND ABOVE, IM ([employer]-Comirnat) 06/30/2023 Covid-19, Mrna, Lnp-s, Pf, B ivalent, 30 Mcg, IM, 12 yrs and above (Pfizer) 06/20/2022 HEP A - Hepatitis A (Adult > 18 yrs) 02/16/2010, 09/15/2009 Hepatitis B, 20+ yrs 05/15/2016,12/13/2015,11/07 Pneumococcal Polysaccharide PPV23 (Pneumovax) 07/30/2021,09/12/2011 Season Influenza, Quad, PF, Adjuvanted, 65+ Yrs, IM (FLUAD) 06/30/2023 Seasonal Influenza, PF, 6 M & above, IM , (FluLaval or Fluzone) 07/20/2021,05/05/2020,06/14/2019,06/01 Seasonal Influenza, Quadriva lent Hd (Fluzone Hd) 05/10/2022 Seasonal Influenza, Quadriva lent, No Preserve, IM 05/20/2017,05/15/2016,06/09/2015 06/09/2016 Seasonal Influenza, Split, I IV3, With Preserve, Inj 06/22/2014,06/09/2013,06/26/2012,06/01,05/29/2009 TDAP (age 10 and older)(Boostrix) 04/09/2019 TDAP, Age 7 and older, IM (Adacel) 04/05/2011, Zoster Vaccine Recombinant (Shingrix) 02/09/2021 ,09/28/2020 documented as of this encounter Social History Tobacco Use Types Packs/Day Years Used Date Smoking Tobacco: Former Cigarettes 1 30 1 09/25/1971 - 07/26/2002 Passive Smoke Exposure: Never Smokeless Tobacco: Never Tobacco Cessation:Counseling Given: Not Answered Comments:30 pack year history Alcohol Use Standard Drinks/Week Comments Yes 0 (1 standard drink = 0.6 oz pur e alcohol) rarely PHQ-2 Answer Date Recorded PHQ-2 Score 0 05/05/2020 Hunger Vital Sign Answer Date Recorded Worried About Running Out of Food in the Last Ye ar Never true 05/05/2020 Ran Out of Food in the Last Year Never true 05/05/2020 Sex and Gender Information Value Date Recorded Sex Assigned at Male 04/12/2019 8:16 AM EDT Gender Identity Male 04/12/2019 8:16 AM EDT Sexual Orientation Straight 04/12/2019 8: 16 AM EDT Job Start Date Occupation Industry Not on file Not on file Not on file documented as of this encounter Last Filed Vital Signs Vital Sign Reading Time Taken Comments Blood Pressure 128/68 02/09/2024 9:59 AM EDT Pulse 80 02/09/2024 9:59 AM EDT Temperature 36.5 C (97.7 F) 02/09/2024 9:59 AM ED T Respiratory Rate 18 02/09/2024 9:59 AM EDT Oxygen Saturation 97% 02/09/2024 9:59 AM EDT Inhaled Oxygen Concentration - - Weight - - Height 172.7 cm (5' 8") 02/09/2024 9:59 AM EDT Body Mass Index - - documented in this encounter Progress Notes * Nisa Goodrich PA-C - 02/09/2024 10:52 AM EDT Images from the original note were not included. History of Present Illness Almas Pack is a 68 year old male that presents for Acute (Pt states that he is hurting everywhere, he states that he has possible food poison from a chicken he ate, since Friday ) Here as he feels off He was on naproxen for his neck He s out of naproxen Has appt coming up for this No fever or chills. Daughter hasd pnx and is worried he might have viral pnx He has not done a covid test ill as well. + Nausea. Energy is really low Appetite is off - he is not eating. No other symptoms Was active and busy on Friday.f elt fine. That night - bam,. Started feeling crummy Yesterday slept all day Physical Exam Vitals: 02/09/24 0959 Temp: 36.5 C (97.7 F) Pulse: 80 Resp: 18 SpO2: 97% BP: 128/68 BP Readings from Last 3 Encounters: 02/09/24 128/68 11/17/23 124/62 09/03/23 132/64 Wt Readings from Last 3 Encounters: 01/16/24 113.4 kg (250 lb) 11/17/23 117 kg (258 lb) 09/03/23 111.4 kg (245 lb 9.6 oz) BMI Readings from Last 3 Encounters: 02/09/24 38.01 kg/m 01/16/24 38.01 kg/m 11/17/23 39.23 kg/m Ht Readings from Last 3 Encounters: 02/09/24 1.727 m (5' 8") 01/16/24 1.727 m (5' 8") 09/03/23 1.727 m (5' 8") General: alert, healthy, and no distress Head: Normocephalic, No masses, lesions, tenderness or abnormalities Eye Exam: PERRLA, extraocular movements intact, conjunctiva are pink and non- injected, sclera clear Ears: External ears normal, Canals clear, TM's Normal Nose: no mucosal erythema, no mucosal edema, no purulent discharge Oropharynx: no exudate, no erythema, lips, buccal mucosa, and tongue normal, and mucous membranes are moist Neck: supple, no adenopathy, no bruits, thyroid normal size, non-tender, without nodularity Heart: regular rate & rhythm, no murmur, no gallops, S-1 normal, and S-2 normal Lungs: chest symmetric with normal AP diameter, no chest deformities noted, no chest wall tenderness, lungs clear to auscultation Skin: slight tenting Assessment and Plan Type 2 diabetes mellitus with hemoglobin A1c goal of less than 7.0% ([facility]) (Primary) - HEMOGLOBIN A1C; Future; Expected date: 02/09/2024 Chronic pain of both shoulders - Naproxen 500 MG Oral Tablet (Naprosyn); Take 1 Tablet by mouth in the morning and 1 Tablet beforebedtime. With food.. Cervical spine pain - Naproxen 500 MG Oral Tablet (Naprosyn); Take 1 Tablet by mouth in the morning and 1 Tablet before bedtime. With food.. Viral illness - predniSONE 10 MG Oral Tablet (Deltasone); Take 5 tabs for 2 days, 4 tabs for 2 days, 3 tabs for 2days, 2 tabs for 2 days 1 tab for 2 days Nausea - Ondansetron 4 MG Oral Tablet Disintegrating (Zofran); Place 1 Tablet on tongue every 8 hours as needed for Nausea. dissolve on tongue. Discussed risk and benefits of short term prednisone therapy. Pt aware that there are side affects such as increased energy, aggression and mood swings, swelling, and increase in appetite. Agrees that this is the best course and is what is needed to deal with the issues. Wrap-Up Time: I spent a total of 10-19 minutes (exact time 19 mins) on the date of service in preparation, delivery, and documentation of the care provided to Almas Pack excluding any time spent in the performance of separately billed services. Nisa Goodrich PA-C 02/09/2024 11:02 AM documented in this encounter Nursing Notes * Elba Burris LPN - 02/09/2024 10:01 AM EDT Almas Pack is a 68 year old male who presents today for Chief Complaint Patient presents with Acute Pt states that he is hurting everywhere, he states that he has possible food poison from a chicken he ate, since Friday documented in this encounter Plan of Treatment Upcoming Encounters Date Type Department Care Team (Late st Contact Info) Description 02/16/2024 7:40 AM EDT Laboratory Laboratory, [address] [place] [phone] Ellie Hurtado [address] [place] [address] 02/16/2024 8:00 AM EDT Office Visit Ophthalmology, [facility] [address] [facility] [place] [address] Brandt [place], DO [address] [place] [address] 02/16/2024 8:30 AM EDT Office Visit Pharmacy, [facility] [address] [facility] [place] [address] [facility] [address] [place] [address] 02/26/2024 8:40 AM EDT NeuroDiagnostic Study Neurophysiology [facility] [address] [facility] [place] [address] Ralph Torrez, DO [address] [place], [place] [address] 03/12/2024 8:30 AM EDT Office Visit Orthopaedics Spine Surgery, [facility] [address] [place] [address] Kleber Batres MD [address] [place] [address] 09/06/2024 11:00 AM EST Office Visit [facility] [address] [place] [address] Nisa Goodrich PA-C [address], [place] [id number] Scheduled Orders Name Type Priority Associated Diagnoses Orde r Schedule HEMOGLOBIN A1C Lab Routine Type 2 diabetes mellitus with hemoglobin A1c goal of less than 7.0% (HCC) Expected: 02/09/2024 (Approximate), Expires: 02/08/2025 Scheduled Procedures Name Priority Associated Diagnoses Date/Ti me ARTHRODESIS, ANT INTERBODY, BELOW C-2 Cervical spine pain Cervical spinal stenosis Spondylosis, cervical, with myelopathy Chronic neck pain Upper extremity weakness Pre-op testing ARTHRODESIS,ANT INTERBODY,BE LOW C-2,EA ADDL Cervical spine pain Cervical spinal stenosis Spondylosis, cervical, with myelopathy Chronic neck pain Upper extremity weakness Pre-op testing INSERTION INTERBODY BIOMECHA NICAL DEVICE ANTERIOR W/INTERBODY ARTHRODESIS Cervical spine pain Cervical spinal stenosis Spondylosis, cervical, with myelopathy Chronic neck pain Upper extremity weakness Pre-op testing OBTAIN AUTOGRAFT FOR SPINE S URGERY MORSELIZED SEPARATE INCISION Cervical spine pain Cervical spinal stenosis Spondylosis, cervical, with myelopathy Chronic neck pain Upper extremity weakness Pre-op testing ANTERIOR INSTRUMENTATION 2 T O 3 VERTEBRAL SEGMENT Cervical spine pain Cervical spinal stenosis Spondylosis, cervical, with myelopathy Chronic neck pain Upper extremity weakness Pre-op testing ALLOGRAFT FOR SPINE SURGERY MORSELIZED Cervical spine pain Cervical spinal stenosis Spondylosis, cervical, with myelopathy Chronic neck pain Upper extremity weakness Pre-op testing BONE MARROW ASPIRATION FOR S PINE BONE GRAFTING Cervical spine pain Cervical spinal stenosis Spondylosis, cervical, with myelopathy Chronic neck pain Upper extremity weakness Pre-op testing COLONOSCOPY FLEXIBLE PROXIMA L DIAGNOSTIC Recall Encounter for screening colonoscopy Health Maintenance Due Date Last Done Comments Hepatitis C Screening 1974 Cologuard 2001 Fecal Occult Blood Test 2001 Sigmoidoscopy 2001 Depression Screening 05/05/2021 05/05/2020 Pneumococcal Vaccine: 65+ Years (2 of 2 - PCV) 07/30/2022 07/30/2021, 09/12/2011 COVID-19 Vaccine (2022- season) 2023 06/30/2023, 06/20/2022, 07/30/2021, Additional history exists HbA1c 07/18/2024 01/16/2024, 03/2024, 09/12/2022, Additional history exists Diabetic Foot Exam 09/03/2024 09/03/2023, 0 02/09/2021, 10/05/2018, Additional history exists Diabetic Eye Exam 10/07/2024 10/07/2023, 09/08/2020 Albumin/Creatinine Ratio 10/08/2024 024, 05/10/2022, 09/24/2021, Additional history exists B-12 10/08/2024 10/08/2023, 0 05/2022, 02/09/2021, Additional history exists GFR 10/08/2024 10/08/2023, 09/01, 05/10/2022, Additional history exists Colonoscopy 05/07/2028 05/07/2018, 090 01/2018, 01/13/2007 Colorectal Cancer Screening 05/07/2028 Lipid Panel 10/08/2028 10/08/2023, 090 05/2022, 05/10/2022, Additional history exists DTaP,Tdap,and Td Vaccines (4 - Td or Tdap) 04/09/2029 04/09/2019, 04/05/2011, 01/30/2010, Additional history exists Hepatitis B Completed 05/15/2016, 11/30, 11/08/2015 Zoster Vaccines Completed 02/09/2021, 09/28/2020 AAA Screening Completed 05/24/2022 Influenza Vaccine (FLU shot) Completed , 05/10/2022, 07/20/2021, Additional history exists GARDASIL-HPV IMMUNIZATION SERIES Aged Out No longer eligible based on patient's age to complete this topic MENINGOCOCCAL (MENACTRA/MENVEO) Aged Out No longer eligible based on patient's age to complete this topic documented as of this encounter Medical Devices Not on filedocumented as of this encounter Visit Diagnoses Diagnosis Type 2 diabetes mellitus with hemoglobin A1c goal of less than 7.0% ([facility])- Primary Chronic pain of both shoulders Pain in joint, shoulder region Cervical spine pain Cervicalgia Viral illness Unspecified viral infection, in conditions classified elsewhere and of unspecified site Nausea Nausea alone documented in this encounter Advance Directives * Full Code (Latest Code Status on File) Date Activated Date Inactivated Comments 07/05/2019 10:32 AM 07/05/2019 4:23 PM This order reflects the patients wishes and were consensually agreed upon. Care Teams Sales Ledger Administrator Relationship Specialty Start Date End Date Alonso Daigle MD [address] [place] [address] PCP - General 08/28/01 documented as of this encounter
--- OUTSIDE RECORDS SUMMARY | 2024-02-11 23:22 | External Medical Summary ---
Author Name Unknown Address Unknown Organization [id number]:[facility] [place] [address] [facility] [address] Laboratory Report Ordering Provider Test Date Status PAUL,DELMIS 01/16/2024 07:53:22 Final Observation Date Value Abnormality Reference (Units ) Status HbA1C 01/16/2024 07:53:22 8.3 Above high normal 4. 0-5.6 (%) Final The use of HbA1c to monitor glycemic status is based on normal hemoglobin and HbA composition. This test should not be used in patients with abnormal hemoglobin that affects the half life of the red blood cell or the in vivo glycation rates. Glucose, estimated average 01/16/2024 07:53:22 192 Above high normal <126 (mg/dL) Clyde serrano Performing Location [facility] [place] [address] [facility] [address]
--- OUTSIDE RECORDS SUMMARY | 2024-02-11 23:22 | External Medical Summary | Summary of Care ---
Author Name Unknown Organization [facility] Address [address] [facility] [place] [address] Phone [phone] Care Team Providers Care Printed Circuit Layout Taper Name Role Phone Alonso Daigle MD Primary Care Provider [phone]- [phone] Encounter Details Date Type Department Care Team (Latest Contact Info) Description 01/16/2024 1:15 PM EDT - 01/16/2024 11:59 PM EDT Hospital Encounter Orthopaedics, [facility] [address] [place] [address] Arrived Discharge Disposition: Home - Self Care Allergies No known active allergiesdocumented as of this encounter (statuses as of 01/17/2024) Medications Medication Sig Dispensed Refills Start Date End Date Status ASPIRIN 81 MG OR TABS one tab by mouth daily 0 0 11/23/2004 Active ONE DAILY MENS PO TABS 1 daily 0 03/24/2006 Active FISH OIL 1000 MG PO CPDR 1 Daily 1 Cap 0 11/20/2011 Active Magnesium 250 MG Tablet Take 1 Tablet by mouth in the morning. 0 10/05/2018 Active Potassium Gluconate 550 MG TABS Take by mouth. 0 10/05/2018 Active Diclofenac Sodium (VOLTAREN) 1 % gel Place 1 g topically on the skin 4 times a day. 3 Tube 1 10/07/2019 Active Fexofenadine HCl 180 MG Oral Tablet (Amairani)Indicati ons:Chronic rhinitis Take 1 Tab by mouth daily. 90 Tab 3 04/07/2021 Active Benzonatate 100 MG Oral Capsule (Alban Stephens)Indication s:COVID-19 Take 1 Capsule by mouth 3 times a day as needed for Cough. Do not cut, crush, or chew. 50 Capsule 1 08/28/2023 Active Additional Information Patient not taking.Reported on 01/16/2024 Montelukast Sodium 10 MG Oral Tablet (Singulair)Indica tions:COVID-19 Take 1 Tablet by mouth in the morning. 90 Tablet 3 09/22/2023 Active metFORMIN HCl 1000 MG Oral Tablet (Glucophage) Take 1 Tablet by mouth 2 times a day with morning and evening meals. 180 Tablet 3 10/17/2023 Active Turmeric Curcumin 500 MG Oral Capsule Take by mouth 2 times a day. 0 Active PreserVision AREDS 2 Oral Tablet Chewable Take by mouth. 0 Activ e Citrucel 500 MG Oral Tablet (Methylcellulose (Laxative)) Take 1 Tablet by mouth as needed for Constipation. 0 Active Esomeprazole Magnesium 20 MG Oral Capsule Delayed Release (NexIUM) Take 1 Capsule by mouth daily before breakfast. 0 Active Naproxen 500 MG Oral Tablet (Naprosyn)Indicat ions:Chronic pain of both shoulders,Cervica l spine pain Take 1 Tablet by mouth in the morning and 1 Tablet before bedtime. With food.. 60 Tablet 5 11/25/2023 Active Lisinopril 20 MG Oral Tablet (Prinivil)Indicat ions:HTN, goal below 140/90 TAKE ONE TABLET BY MOUTH EVERY DAY 90 Tablet 2 12/16/2023 12/15/2024 Active Atorvastatin Calcium 80 MG Oral Tablet (Lipitor) TAKE ONE TABLET BY MOUTH EVERY DAY 90 Tablet 2 12/16/2023 12/15/2024 Active Fluticasone Propionate 50 MCG/ACT Nasal Suspension (Flonase) ADMINISTER 2 SPRAYS INTO EACH NOSTRIL DAILY IN THE MORNING 48 g 2 12/16/2023 12/15/2024 Active documented as of this encounter (statuses as of 01/17/2024) Active Problems Problem Noted Date Diagnosed Date Cervical spine pain 01/16/2024 Cervical spinal stenosis 01/16/2024 Spondylosis, cervical, with myelopathy Chronic neck pain 01/16/2024 Upper extremity weakness 01/16/2024 Pre-op testing 01/16/2024 Primary osteoarthritis of left knee 05/05/2020 HTN, goal below 140/90 11/08/2014 Type 2 diabetes mellitus wit h hemoglobin A1c goal of less than 7.0% 12/05/2011 Overview: ICD-10 update of inactive term Dyslipidemia, goal LDL below 100 12/05/2011 Generalized osteoarthritis 04/06/2010 documented as of this encounter (statuses as of 01/17/2024) Resolved Problems Problem Noted Date Diagnosed Date [...] as of this encounter (statuses as of 01/17/2024) Immunizations Name Administration Dates Next Due COVID-19 mRNA, LNP-s, No Pre serve, 2-Dose Series ([employer]) 07/30/2021,11/30/2020,11/09/2020 COVID-19, MRNA-LNP, 23-24, P F, 30 MCG/0.3 mL, 12 YRS AND ABOVE, IM (PFIZER-Comirnaty) 06/30/2023 Covid-19, Mrna, Lnp-s, Pf, B ivalent, [...] 06/22/2014,06/09/2013,06/26/2012,06/01,05/29/2009 TDAP (age 10 and older)(Boostrix) 04/09/2019 TDAP (age 11 and older)(Adacel) 04/05/2011,01/30 Zoster Vaccine Recombinant (Shingrix) 02/09/2021 ,09/28/2020 documented as of this encounter Social History Tobacco Use Types Packs/Day Years Used Date Smoking Tobacco: Former Cigarettes 1 30 1 09/25/1971 - 07/26/2002 Passive Smoke Exposure: Never Smokeless Tobacco: Never Comments:30 pack year histor y Alcohol Use Standard Drinks/Week Comments Yes 0 [...] on file documented as of this encounter Plan of Treatment Upcoming Encounters Date Type Department Care Team (Late st Contact Info) Description 01/22/2024 2:15 PM EDT Cardiac Studies Cardiac Studies, [address] [place] [address] 01/22/2024 3:00 PM EDT Imaging Radiology [facility] [address] [place] [address] 02/16/2024 8:00 AM EDT Office Visit Ophthalmology, [address] [place] [address] Brandt Washington, DO [address] [place] [address] 02/26/2024 8:40 AM EDT NeuroDiagnostic Study Neurophysiology [facility] [address] [facility] [place] [address] Ralph Torrez, DO [address] [place] [address] 03/12/2024 8:30 AM EDT Office Visit Orthopaedics Spine Surgery, [facility] [address] [place] [address] Kleber Batres MD [address] [place] [address] 09/06/2024 11:00 AM EST [address] [phone] Nisa Goodrich PA-C [address] [place] [address] Pending Results Name Type Priority Associated Diagnoses Date /Time XR C SPINE 4-5 VIEWS Medical Imaging Routine Cervical spine pain 01/16/2024 1:35 PM EDT Scheduled Procedures Name Priority Associated Diagnoses Date/Ti [...] of 2 - PCV) 07/30/2022 07/30/2021, 09/12/2011 HbA1c 07/18/2024 01/16/2024, 03/2024, 09/12/2022, Additional history exists Diabetic Foot Exam 09/03/2024 09/03/2023, 0 02/09/2021, 10/05/2018, Additional history exists Diabetic Eye Exam 10/07/2024 10/07/2023, , 09/06/2013, Additional history exists Albumin/Creatinine Ratio 10/08/2024 024, 05/10/2022, 09/24/2021, Additional history exists B-12 10/08/2024 10/08/2023, 05/2022, 02/09/2021, Additional history exists GFR 10/08/2024 10/08/2023, 09/01, 05/10/2022, Additional history exists Colonoscopy 05/07/2028 05/07/2018, 01/2018, 01/13/2007 Colorectal Cancer Screening 05/07/2028 Lipid Panel 10/08/2028 10/08/2023, 05/2022, 05/10/2022, Additional history exists DTaP,Tdap,and Td Vaccines (4 - Td or Tdap) 04/09/2029 04/09/2019, 04/05/2011, 01/30/2010, Additional history exists Hepatitis B Completed 05/15/2016, 11/30, 11/08/2015 Zoster Vaccines Completed 02/09/2021, 09/28/2020 AAA Screening Completed 05/24/2022 COVID-19 Vaccine Completed 06/30/2023, , 07/30/2021, Additional history exists Influenza Vaccine (FLU shot) Completed , 05/10/2022, 07/20/2021, Additional history exists GARDASIL-HPV IMMUNIZATION SERIES Aged Out No longer eligible based on patient's age to complete this topic MENINGOCOCCAL (MENACTRA/MENVEO) Aged Out No longer eligible based on patient's age to complete this topic documented as of this encounter Medical Devices Not on filedocumented as of this encounter Advance Directives Latest Code Status on File Code Status Date Activated Date Inactivated Comments Full Code 07/05/2019 10:32 AM 07/05/2019 4:23 PM This order reflects the patients wishes and were consensually agreed upon. Care Teams Printed Circuit Layout Taper Relationship Specialty Start Date End Date Alonso Daigle MD [address] [place] [address] PCP - General 08/28/01 documented as of this encounter
--- OUTSIDE RECORDS SUMMARY | 2024-02-11 23:22 | External Medical Summary | Summary of Care ---
Author Name Unknown Organization [facility] Address [address] [place] [address] Phone [phone] Care Team Providers Care Green Lumber Grader Name Role Phone Alonso Daigle MD Primary Care Provider [phone]- [phone] Reason for Visit * Reason Comments Outpatient Testing Encounter Details Date Type Department Care Team (Late st Contact Info) Description 01/16/2024 7:40 AM EDT Laboratory Laboratory, [place] [address] [place] [address] [place], Laboratory [address] [place], [place] [id number] Encounter for long-term (current) use of medications Allergies No known active allergiesdocumented as of this encounter (statuses as of 01/16/2024) Medications Medication Sig Dispensed Refills Start Date [...] Active Fexofenadine HCl 180 MG Oral Tablet (Amairani)Indicatio ns:Chronic rhinitis Take 1 Tab by mouth daily. 90 Tab 3 04/07/2021 Active Benzonatate 100 MG Oral Capsule (Tessalon Perles)Indications :COVID-19 Take 1 Capsule by mouth 3 times a day as needed for Cough. Do not cut, crush, or chew. 50 Capsule 1 08/28/2023 Active Montelukast Sodium 10 MG Oral Tablet [...] Oral Tablet Chewable Take by mouth. 0 Active Citrucel 500 MG Oral Tablet (Methylcellulose (Laxative)) Take 1 Tablet by mouth as needed for Constipation. 0 Active Esomeprazole Magnesium 20 MG Oral Capsule Delayed Release (NexIUM) Take 1 Capsule by mouth daily before breakfast. 0 Active Naproxen 500 MG Oral Tablet (Naprosyn)Indicati ons:Chronic pain of both shoulders,Cervical spine pain Take 1 Tablet by mouth in the morning and 1 Tablet before bedtime. With food.. 60 Tablet 5 11/25/2023 Active Lisinopril 20 MG Oral Tablet (Prinivil)Indicati [...] as of this encounter (statuses as of 01/16/2024) Active Problems Problem Noted Date Diagnosed Date Primary osteoarthritis of left knee 05/05/2020 HTN, goal below 140/90 11/08/2014 Type 2 diabetes mellitus wit h hemoglobin A1c goal of less than 7.0% 12/05/2011 Overview: ICD-10 update of inactive term Dyslipidemia, goal LDL below 100 12/05/2011 Generalized osteoarthritis 04/06/2010 documented as of this encounter (statuses as of 01/16/2024) Resolved Problems Problem Noted Date Diagnosed Date [...] as of this encounter (statuses as of 01/16/2024) Immunizations Name Administration Dates Next Due COVID-19 mRNA, LNP-s, No Pre serve, 2-Dose Series ([employer]) 07/30/2021,11/30/2020,11/09/2020 COVID-19, MRNA-LNP, 23-24, P F, 30 MCG/0.3 mL, 12 YRS AND ABOVE, IM ([employer]-[facility]) 06/30/2023 Covid-19, Mrna, Lnp-s, Pf, B ivalent, [...] Care Team (Late st Contact Info) Description 01/16/2024 1:30 PM EDT Office Visit Orthopaedics Spine Surgery, [place] [address] [place] [address] Kleber Batres MD [address] [place] [address] 02/16/2024 8:00 AM EDT Office Visit Ophthalmology, [facility] [address] [facility] [place] [address] Brandt Washington, DO 16 [place] [address] 09/06/2024 11:00 AM EST Office Visit [facility] [address] [place] [phone] Nisa Goodrich PA-C [address] [place], [place] [phone] Pending Results Name Type Priority Associated Diagnoses Date /Time HEMOGLOBIN A1C Lab Routine Encounter for long-term (current) use of medications 01/16/2024 7:53 AM EDT Scheduled Procedures Name Priority Associated Diagnoses Date/Ti me COLONOSCOPY FLEXIBLE PROXIMA L DIAGNOSTIC Recall Encounter for screening colonoscopy Health Maintenance Due Date Last Done Comments Hepatitis C Screening 1974 Cologuard 2001 Fecal Occult Blood Test 2001 Sigmoidoscopy 2001 Depression Screening 05/05/2021 05/05/2020 Pneumococcal Vaccine: 65+ Years (2 of 2 - PCV) 07/30/2022 07/30/2021, 09/12/2011 HbA1c 04/07/2024 10/08/2023, 09/01, 05/10/2022, Additional history exists Diabetic Foot Exam 09/03/2024 [...] as of this encounter Visit Diagnoses Diagnosis Encounter for long-term (current) use of medications Encounter for long-term (current) use of other medications documented in this encounter Advance Directives Latest Code Status on File Code Status Date Activated Date Inactivated Comments Full Code 07/05/2019 10:32 AM 07/05/2019 4:23 PM This order reflects the patients wishes and were consensually agreed upon. Care Teams Green Lumber Grader Relationship Specialty Start Date End Date Alonso Daigle MD [address] [place] [address] PCP - General 08/28/01 documented as of this encounter
--- OUTSIDE RECORDS SUMMARY | 2024-02-11 23:22 | External Medical Summary | Summary of Care ---
Author Name Unknown Organization [facility] Address [address] [place] [address] Phone [phone] Care Team Providers Care Planetarium Technician Name Role Phone Priyank Young MD Primary Care Provider [phone]- [phone] Reason for Referral * Evaluate & Treat - Unlimited Visits (Within 10 days (routine)) - Authorized Specialty Diagnoses / Procedures Referred By Contac t Referred To Contact Pharmacist / Pharmacy Diagnoses Type 2 diabetes mellitus with hemoglobin A1c goal of less than 7.0% ([facility]) Priyank Young MD [address] [place] [id number] Referral ID Status Reason Start Date Expiration Date Visits Requested Visits Authorized [id number] Authorized Specialty Services Required 01/20/2024 99 99 Question Answer Referral Priority Within 10 days (routine) Where should this appointment be scheduled? [facility] Referring Provider Role: Primary Care Reason for Referral: DM Target A1c: < 7 Comments Pharmacist Medication Therapy Management: Minimum frequency patient should be seen in person for medication management: as appropriate per clinical condition and patient status By my signature, I understand that my patient Almas Pack will have his medication therapy managed by the [facility] ([facility]) per established policies, procedures, and protocols. I also certify that this referral may serve as an initiation of service for the management of drug therapy in the above noted patient. [facility] providers will be responsible for scheduling patient visits, obtaining appropriate laboratory studies, and adjusting medication management therapy per patient's need, in addition to those roles spelled out in the clinic policy, procedures, and drug management protocols. I understand that the service provided by the [facility] Clinic is voluntary and have informed patient that they can refuse the service at their discretion. I am aware that the [facility] Clinic will provide me with a copy of the patient encounter via my [employer]. I authorize the [facility] Clinic to carry out these activities on my behalf. I consider this program to be a necessary part of the patient's medical care. PRIYANK YOUNG Reason for Visit * Reason Onset Date Comments Test Results Lab 01/19/2024 Encounter Details Date Type Department Care Team (Late st Contact Info) Description 01/19/2024 Telephone [facility] [address] [place] [address] Priyank Young MD [address] [place] [address] Test Results Lab Allergies No known active allergiesdocumented as of this encounter (statuses as of 01/21/2024) Medications Medication Sig Dispensed Refills Start Date End Date Status ASPIRIN 81 MG OR TABS one tab by mouth daily 0 0 11/23/2004 Active ONE DAILY MENS PO TABS 1 daily 0 03/24/2006 Active FISH OIL 1000 MG PO CPDR 1 Daily 1 Cap 0 11/20/2011 Active Magnesium 250 MG Tablet Take 1 Tablet by mouth in the morning. 10/05/2018 Active Potassium Gluconate 550 MG TABS Take by mouth. 10/05/2018 Active Diclofenac Sodium (VOLTAREN) 1 % [...] 2 Oral Tablet Chewable Take by mouth. Activ e Citrucel 500 MG Oral Tablet (Methylcellulose (Laxative)) Take 1 Tablet by mouth as needed for Constipation. Active Esomeprazole Magnesium 20 MG Oral Capsule Delayed Release (NexIUM) Take 1 Capsule by mouth daily before breakfast. Active Naproxen 500 MG Oral Tablet (Naprosyn)Indicat [...] MORNING 48 g 2 12/16/2023 12/15/2024 Active Semaglutide 7 MG Oral Tablet (Rybelsus)Indicat ions:Type 2 diabetes mellitus with hemoglobin A1c goal of less than 7.0% (HCC) Take 7 mg by mouth daily first thing in the morning. Take 30 minutes before food and other medications. 90 Tablet 1 01/20/2024 Active Rybelsus 3 MG Oral Tablet (Semaglutide)Alta cations:Type 2 diabetes mellitus with hemoglobin A1c goal of less than 7.0% (HCC) Take 3 mg by mouth daily first thing in the morning. Take 30 minutes before food and other medications. Take 3mg for 30 days then increase to 7mg tablets. 30 Tablet 01/20/2024 Active documented as of this encounter (statuses as of 01/21/2024) Active Problems Problem Noted Date Diagnosed Date [...] as of this encounter (statuses as of 01/21/2024) Resolved Problems Problem Noted Date Diagnosed Date [...] as of this encounter (statuses as of 01/21/2024) Immunizations Name Administration Dates Next Due COVID-19 mRNA, LNP-s, No Pre serve, 2-Dose Series ([employer]) 07/30/2021,11/30/2020,11/09/2020 COVID-19, MRNA-LNP, 23-24, P F, 30 MCG/0.3 mL, 12 YRS AND ABOVE, IM ([facility]) 06/30/2023 Covid-19, Mrna, Lnp-s, Pf, B ivalent, 30 Mcg, IM, 12 yrs and above ([employer]) 06/20/2022 HEP A - Hepatitis A (Adult [...] on file documented as of this encounter Miscellaneous Notes * Telephone Encounter - Cynthia Rosales RPh - 01/20/2024 12:43 PM EDT Recommendation: Patient is agreeable. Please approve if appropriate and route back to inform the pt. Elevated A1c 8.3% - Adherent to metformin. Recommend adding additional agent. A GLP-1 would be a great option, lowers A1c, weight loss and cardiovascular benefits. Rybelsus once daily tablets are covered by insurance per [employer]. Start 3mg daily x 30 days (dose to help pt adjust to medication) and then increase to maintenance dose 7mg daily. MTDM Referral - Recommended for [facility] patients when A1c > 8%. Repeat labs in 4 months. Pending Prescriptions: Disp Refills Semaglutide 7 MG Oral Tablet (Rybelsus) 90 Tab*1 Sig: Take 7 mg by mouth daily first thing in the morning. Take 30 minutes before food and other medications. Rybelsus 3 MG Oral Tablet (Semaglutide) 30 Tab*0 Sig: Take 3 mg by mouth daily first thing in the morning. Take 30 minutes before food and other medications. Take 3mg for 30 days then increase to 7mg tablets. Thanks, Cynthia Rosales, PharmD Clinical Pharmacist [facility] ([facility]) [phone] 01/20/2024 12:48 PM documented in this encounter Plan of Treatment Upcoming Encounters Date Type Department Care Team (Late st Contact Info) Description 01/22/2024 2:15 PM EDT Cardiac Studies Cardiac Studies, [address] [place] [address] 01/22/2024 3:00 PM EDT Imaging Radiology [facility] 1st Floor, [address] [place] [address] 02/16/2024 8:00 AM EDT Office Visit [address]mology, [address] [address] Brandt Washington, DO [address] [place] [address] 02/26/2024 8:40 AM EDT NeuroDiagnostic Study [facility]phys[facility] [place] [address] Ralph Torrez, DO [address] [facility] [place] [address] 03/12/2024 8:30 AM EDT Office Visit Orthopaedics Spine Surgery, [place] [address] [place] [address] Kleber Batres MD [address] [place] [address] 09/06/2024 11:00 AM EST Office Visit [facility] [address] [place] [phone] Nisa Goodrich PA-C [address] [place] [address] Scheduled Orders Name Type Priority Associated Diagnoses Orde r Schedule HEMOGLOBIN A1C Lab Routine Type 2 diabetes mellitus with hemoglobin A1c goal of less than 7.0% (HCC) Expected: 05/24/2024 (Approximate), Expires: 01/20/2025 Scheduled Procedures Name Priority Associated Diagnoses Date/Ti [...] L DIAGNOSTIC Recall Encounter for screening colonoscopy Scheduled Referrals Name Type Priority Associated Diagnoses Orde r Schedule PHARMACIST MEDS THERAPY MGMT REFERRAL OP Referral Within 10 days (routine) Type 2 diabetes mellitus with hemoglobin A1c goal of less than 7.0% (HCC) Ordered: 01/20/2024 Health Maintenance Due Date Last Done Comments [...] hemoglobin A1c goal of less than 7.0% (HCC)- Primary documented in this encounter Advance Directives * Full Code (Latest Code Status on File) Date Activated Date Inactivated Comments 07/05/2019 10:32 AM 07/05/2019 4:23 PM This order reflects the patients wishes and were consensually agreed upon. Care Teams Planetarium Technician Relationship Specialty Start Date End Date Priyank Young MD [address] [place] [address] PCP - General 08/28/01 documented as of this encounter
--- OUTSIDE RECORDS SUMMARY | 2024-02-11 23:22 | External Medical Summary | Summary of Care ---
Author Name Unknown Organization [facility] Address [address] [place] [address] Phone [phone] Care Team Providers Care High School Football Coach Name Role Phone Alonso Daigle MD Primary Care Provider +1- [phone] Reason for Visit * Reason Comments NEW PATIENT Bilateral shoulder * Evaluate & Treat - Unlimited Visits (Within 10 days (routine)) - Authorized Specialty Diagnoses / Procedures Referred By Contac t Referred To Contact Sports Medicine / Orthopedics Diagnoses Rotator cuff syndrome of both shoulders Impingement of shoulder Juarez Swann MD [address] [place] [address] Referral ID Status Reason Start Date Expiration Date Visits Requested Visits Authorized [id number] Authorized Specialty Services Required 11/17/[phone] Encounter Details Date Type Department Care Team (Latest Contact Info) Description 11/25/2023 8:00 AM EDT Office Visit [facility]ics [facility] [address] [facility] [place] [address] Kathy Chase MD [address] [place] [address] Chronic pain of both shoulders*; Dysfunction of rotator cuff of both shoulders; Cervical spine pain; Cervical radiculopathy at C5 Allergies No known active allergiesdocumented as of this encounter (statuses as of 11/25/2023) Medications Medication Sig Dispensed Refills Start Date [...] mouth daily. 90 Tab 3 04/07/2021 Active Atorvastatin Calcium 80 MG Oral Tablet (Lipitor) TAKE ONE TABLET BY MOUTH EVERY DAY 90 Tablet 3 11/27/2022 12/22/2023 Active Lisinopril 20 MG Oral Tablet (Prinivil)Indicati ons:HTN, goal below 140/90 TAKE ONE TABLET BY MOUTH EVERY DAY 90 Tablet 3 11/27/2022 12/22/2023 Active Fluticasone Propionate 50 MCG/ACT Nasal Suspension (Flonase) ADMINISTER 2 SPRAYS INTO EACH NOSTRIL DAILY IN THE MORNING 48 g 3 11/17/2022 12/22/2023 Active Benzonatate 100 MG Oral Capsule (Tessalon [...] With food.. 60 Tablet 5 11/25/2023 Active documented as of this encounter (statuses as of 11/25/2023) Active Problems Problem Noted Date Diagnosed Date Primary osteoarthritis of left knee 05/05/2020 HTN, goal below 140/90 11/08/2014 Type 2 diabetes mellitus wit h hemoglobin A1c goal of less than 7.0% 12/05/2011 Overview: ICD-10 update of inactive term Dyslipidemia, goal LDL below 100 12/05/2011 Generalized osteoarthritis 04/06/2010 documented as of this encounter (statuses as of 11/25/2023) Resolved Problems Problem Noted Date Diagnosed Date [...] as of this encounter (statuses as of 11/25/2023) Immunizations Name Administration Dates Next Due COVID-19 mRNA, LNP-s, No Pre serve, 2-Dose Series (ZeOmega) 07/30/2021,11/30/2020,11/09/2020 COVID-19, MRNA-LNP, 23-24, P F, 30 MCG/0.3 mL, 12 YRS AND ABOVE, IM ([facility]) 06/30/2023 Covid-19, Mrna, Lnp-s, Pf, B ivalent, [...] on file documented as of this encounter Progress Notes * Kathy Chase MD - 11/25/2023 9:11 AM EDT Chief Complaint: NEW PATIENT (Bilateral shoulder) History of Present Illness: Nursing Notes: Saloni Jean-Baptiste, MED ASSIST 11/25/23 0755 Signed Patient presents today for bilateral shoulder pain. L>R. 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 Bilateral numbness and tingling down to hands. States back in July, he was plowing, slippedand tried to catch himself on the door. Almas Pack is a 68 year old right hand dominant male who presents for consultation to [facility] for bilateral shoulder injury/pain. Consult requested by Juarez Swann MD. Almas Pack is here with his Almas Pack reports pain about 5 months ago after a fall. Did not notice the pain immediately, but noticed it a few days after. Describes pain at the bilateral shoulders over the anterior aspect ofthe shoulder that radiates down his biceps all the way to his thumb. Also describes some tingling throughout this pattern. Pain is constant but is worse when he attempts to reach his arms overhead. Left worse than right. 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 Also enjoys fishing. No prior injuries. Is taking Tylenol for pain with minimal relief. Has not done physical therapy yet. Review of systems: All others negative except those noted above in HPI. Review of patient's allergies indicates: No Known Allergies Current Outpatient Medications Medication Sig Dispense Refill Naproxen 500 MG Oral Tablet (Naprosyn) Take 1 Tablet by mouth in the morning and 1 Tablet before bedtime. With food.. 60 Tablet 5 ASPIRIN 81 MG OR TABS one tab by mouth daily 0 0 ONE DAILY MENS PO TABS 1 daily 0 FISH OIL 1000 MG PO CPDR 1 Daily 1 Cap 0 Magnesium 250 MG Tablet Take 1 Tablet by mouth in the morning. Potassium Gluconate 550 MG TABS Take by mouth. Diclofenac Sodium (VOLTAREN) 1 % gel Place 1 g topically on the skin 4 times a day. 3 Tube 1 Fexofenadine HCl 180 MG Oral Tablet (Amairani) Take 1 Tab by mouth daily. 90 Tab 3 Atorvastatin Calcium 80 MG Oral Tablet (Lipitor) TAKE ONE TABLET BY MOUTH EVERY DAY 90 Tablet 3 Lisinopril 20 MG Oral Tablet (Prinivil) TAKE ONE TABLET BY MOUTH EVERY DAY 90 Tablet 3 Fluticasone Propionate 50 MCG/ACT Nasal Suspension (Flonase) ADMINISTER 2 SPRAYS INTO EACH NOSTRIL DAILY IN THE MORNING 48 g 3 Benzonatate 100 MG Oral Capsule (Tessalon Perles) Take 1 Capsule by mouth 3 times a day as needed for Cough. Do not cut, crush, or chew. 50 Capsule 1 Montelukast Sodium 10 MG Oral Tablet (Singulair) Take 1 Tablet by mouth in the morning. 90 Tablet 3 metFORMIN HCl 1000 MG Oral Tablet (Glucophage) Take 1 Tablet by mouth 2 times a day with morning and evening meals. 180 Tablet 3 Turmeric Curcumin 500 MG Oral Capsule Take by mouth 2 times a day. PreserVision AREDS 2 Oral Tablet Chewable Take by mouth. Citrucel 500 MG Oral Tablet (Methylcellulose (Laxative)) Take 1 Tablet by mouth as needed for Constipation. Esomeprazole Magnesium 20 MG Oral Capsule Delayed Release (NexIUM) Take 1 Capsule by mouth daily before breakfast. No current facility-administered medications for this visit. Past Medical History: Diagnosis Date Dyslipidemia, goal to be determined HTN, goal below 140/90 11/08/2014 Pulmonary Nodule 07/03 0.7 cm RLL - stable on CT 07/03, 09/03, 03/03 Type 2 diabetes mellitus with hemoglobin A1c goal of less than 7.0% ([facility]) 12/05/2011 ICD-10 update of inactive term Past Surgical History: Procedure Laterality Date COLONOSCOPY, DIAGNOSTIC (RECTUM) 05/07/2018 normal, repeat 10 yrs/COLONOSCOPY FLEXIBLE PROXIMAL DIAGNOSTIC performed by Dominic Jimenez MD at ENDOSCOPY [facility] COLORECTAL CANCER SCREEN; NOT AT RISK 01/13/07 repeat in [address] CHEST W CONTRAST mediastinal LAD and 0.7 cm nodule RLL - stable 07/03,09/03,03/03 KNEE ARTHROSCOPY/MENISCECTOMY Left 07/05/2019 ARTHROSCOPY KNEE MEDIAL OR LATERAL MENISCECTOMY performed by Aspen Villalpando DO at OR [facility] REPAIR INGUINAL HERNIA, UNDER 6 MO 3 months old STRESS ECHO (EXERCISE) 06/05 nl UMBIL HERNIA REPAIR (REDUCIBLE) AGE 5+YR N/A 08/24/2018 08/24/2018 umbilical hernia repair -- [facility] 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: [employer] Tobacco Use Smoking status: Former Current packs/day: 0.00 Average packs/day: 1 pack/day for 30.0 years (30.0 ttl pk-yrs) Types: Cigarettes Start date: 07/26/1972 Quit date: 07/26/2002 Years since quittin.3 Passive exposure: Never Smokeless tobacco: Never Tobacco comments: 30 pack year history Vaping Use Vaping Use: Never used Substance and Sexual Activity Alcohol use: Yes Comment: rarely Drug use: No Sexual activity: Not on file Other Topics Concern Not on file Social History Narrative Not on file Social Determinants of Health Financial Resource Strain: Not on file Food Insecurity: No Food Insecurity (05/05/2020) Hunger Vital Sign Worried About Running Out of Food in the Last Year: Never true Ran Out of Food in the Last Year: Never true Transportation Needs: Not on file Physical Activity: Not on file Stress: Not on file Social Connections: Not on file Intimate Partner Violence: Not on file Housing Stability: Not on file Family History Problem Relation Age of Onset Cancer Father Prostate Hypertension Father CAD - CABG - early 70's, [place] 87 Stroke Mother in her 70's Cancer Brother Prostate - age 58 Family History; none relevant to acute HPI 11/25/2023 Objective: Physical Exam There were no vitals filed for this visit. Estimated body mass index is 39.23 kg/m as calculated from the following: Height as of 09/03/23: 1.727 m (5' 8"). Weight as of 11/17/23: 117 kg (258 lb). General: generally well-nourished and in no acute distress HEENT: normocephalic, atraumatic, sclera anicteric Psych: mood and affect normal , cooperative Card: Peripheral pulses: normal in affected extremity (s) Resp: equal chest rise, non-tachypneic, non-labored breathing Skin: no rash, normal Neuro: Coordination: normal; Sensation: normal on affected extremity (s) MSK: Shoulder exam, bilateral Inspection: No visible deformity, redness, swelling or bruising Palpation: No tenderness to palpation Shoulder glenohumeral ACTIVE range of motion: Abduction 120 right, 90 left Forward flexion 160 right, 90 left External rotation 60 bilaterally Internal rotation lumbar spine bilaterally negative lift-off Passively, has full range of motion bilaterally Negative drop-arm but painful arc Strength and cuff tests: supraspinatous (empty can): Right - 5/5 Left - 4/5 infraspinatous/teres minor (resisted external rotation): Right - 5/5 Left - 5/5 subscapularis (resisted internal rotation): Right - 5/5 Left - 5/5 drop arm: negative Bilateral Impingment tests: Neer positive Bilateral Hawkin's sign positive Bilateral Acromioclavicular joint: crossed arm negative Bilateral Biceps and labral tests: speed (biceps) positive Bilateral borges's (SLAP) positive Bilateral Positive Spurling's bilaterally Radiology (I have personally reviewed the following films): Four view C-spine and four view bilateral shoulders performed today reveals degenerative disc disease most notably at C4 through see 7 with straightening of the normal cervical lordosis. No acute osseous abnormalities. Mild degenerative change at the bilateral AC joints. Chronic changes of the rotator cuff footprint. No acute osseous abnormalities on the shoulder x-rays. - per my interpretation. Awaiting formal radiology interpretation. Discussed with patient that I will call them if anything changes from above interpretation. Assessment and Plan: ICD-10-CM 1. Chronic pain of both shoulders M25.511 G89.29 M25.512 2. Dysfunction of rotator cuff of both shoulders M67.911 M67.912 3. Cervical spine pain M54.2 4. Cervical radiculopathy at C5 M54.12 Mr. Pack is a pleasant 68-year-old male who is seen today for evaluation of bilateral shoulder pain with symptoms radiating down to the radial aspect of his wrist and thumb. Suspect that his symptoms are multifactorial. He certainly has evidence of a C5-C6 radiculopathy but also has evidence of rotator cuff dysfunction on physical exam and chronic changes at the rotator cuff footprint on x-ray. He was already set up for physical therapy next week, encouraged him to go to physical therapy and keep up with a home exercise program 5-6 days a week for the next 4-6 weeks. I will see him back thenin about 1 month. If no improvement we will likely proceed with MRI of C-spine and shoulders versusC- spine MRI with brief diagnostic ultrasound of his shoulders. The above assessment and plan were discussed at length. All questions were answered, and the patient expressed understanding. Kathy Chase MD Primary Care Sports Medicine [facility] Orthopaedics Health system [address] [facility] [place] [address] documented in this encounter Nursing Notes * Saloni Jean-Baptiste MED ASSIST - 11/25/2023 7:52 AM EDT Patient presents today for bilateral shoulder pain. L>R. 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 Bilateral numbness and tingling down to hands. States back in July, he was plowing, slippedand tried to catch himself on the door. documented in this encounter Plan of Treatment Upcoming Encounters Date Type Department Care Team (Late st Contact Info) Description 12/30/2023 8:30 AM EDT [facility] [place] [address] Kathy Chase MD [address] [place] [address] 01/16/2024 7:40 AM EDT [facility] [place] [address] [facility] [phone] [place], Laboratory [address] [place] [facility] [address] 02/16/2024 8:00 AM EDT Office Visit Ophthalmology, Health system [address] [place] [address] Brandt Washington T, DO [address] [facility] [place] [address] 09/06/2024 11:00 AM EST Office Visit [facility], [place] [address] [facility] [address] Nisa Goodrich PA-C [address] [place] [facility] [place] [address] Pending Results Name Type Priority Associated Diagnoses Date /Time XR SHOULDER, 2 OR MORE VIEWS Medical Imaging Routine Chronic pain of both shoulders 11/25/2023 8:09 AM EDT XR C SPINE 4-5 VIEWS Medical Imaging Routine Cervical spine pain 11/25/2023 8:09 AM EDT Scheduled Procedures Name Priority Associated [...] as of this encounter Visit Diagnoses Diagnosis Chronic pain of both shoulders- Primary Pain in joint, shoulder region Dysfunction of rotator cuff of both shoulders Cervical spine pain Cervicalgia Cervical radiculopathy at C5 Brachial neuritis or radiculitis nos documented in this encounter Advance Directives Latest Code Status on File Code Status Date Activated Date Inactivated Comments Full Code 07/05/2019 10:32 AM 07/05/2019 4:23 PM This order reflects the patients wishes and were consensually agreed upon. Care Teams High School Football Coach Relationship Specialty Start Date End Date Alonso Daigle MD [address] [place] [address] PCP - General 08/28/01 documented as of this encounter
--- OUTSIDE RECORDS SUMMARY | 2024-02-11 23:22 | External Medical Summary | Summary of Care ---
Author Name Unknown Organization [facility] Address [address] [facility] [place] [address] Phone [phone] Care Team Providers Care Analytics Specialist Name Role Phone Alonso Daigle MD Primary Care Provider +1- [phone] Encounter Details Date Type Department Care Team (Late st Contact Info) Description 01/19/2024 Orders Only PATIENT PORTAL DO NOT DELETE THIS DEPT USED BY [place] [id number] Allergies No known active allergiesdocumented as of this encounter (statuses as of 01/19/2024) Medications Medication Sig Dispensed Refills Start Date [...] 04/07/2021 Active Benzonatate 100 MG Oral Capsule (Teserma Stephens)Indication s:COVID-19 Take 1 Capsule by mouth [...] as of this encounter (statuses as of 01/19/2024) Active Problems Problem Noted Date Diagnosed Date [...] as of this encounter (statuses as of 01/19/2024) Resolved Problems Problem Noted Date Diagnosed Date [...] as of this encounter (statuses as of 01/19/2024) Immunizations Name Administration Dates Next Due COVID-19 mRNA, LNP-s, No Pre serve, 2-Dose Series (Cyanto) 07/30/2021,11/30/2020,11/09/2020 COVID-19, MRNA-LNP, 23-24, P F, 30 [...] 2:15 PM EDT Cardiac Studies Cardiac Studies, [address] [place] [address] 01/22/2024 3:00 PM EDT Imaging Radiology [facility] 1st Floor, [address] [place] [address] 02/16/2024 8:00 AM EDT Office Visit Ophthalmology, [address] [place] [address] Brandt Washington, DO [address] [place] [address] 02/26/2024 8:40 AM EDT NeuroDiagnostic Study Neurophysiology [address] [place] [address] Ralph Torrez, DO [address] [place] [address] 03/12/2024 8:30 AM EDT Office Visit Orthopaedics Spine Surgery, [place] [address] [place] [address] Kleber Batres MD [address] [facility] [place] [address] 09/06/2024 11:00 AM EST Office Visit [facility] [address] [facility] [place] [phone] Nisa Goodrich PA-C [address] [place] [address] Scheduled Procedures Name Priority Associated Diagnoses Date/Ti [...] - PCV) 07/30/2022 07/30/2021, 09/12/2011 COVID-19 Vaccine (2022-24 season) 2023 06/30/2023, 06/20/2022, 07/30/2021, Additional history exists HbA1c 07/18/2024 01/16/2024, 0203/2024, 09/12/2022, Additional history exists Diabetic Foot Exam [...] filedocumented as of this encounter Advance Directives * Full Code (Latest Code Status on File) Date Activated Date Inactivated Comments 07/05/2019 10:32 AM 07/05/2019 4:23 PM This order reflects the patients wishes and were consensually agreed upon. Care Teams Analytics Specialist Relationship Specialty Start Date End Date Alonso Daigle MD [address] [facility] [place] [id number] PCP - General 08/28/01 documented as of this encounter
--- OUTSIDE RECORDS SUMMARY | 2024-02-11 23:22 | External Medical Summary | Summary of Care ---
Author Name Unknown Organization [facility] Address [address] [facility] [place] [address] Phone [phone] Care Team Providers Care Safety Inspector Name Role Phone Alonso Daigle MD Primary Care Provider +1- [phone] Encounter Details Date Type Department Care Team (Late st Contact Info) Description 01/14/2024 Telephone Orthopaedics Spine [facility], [facility] [address] [place] [address] Kleber Batres MD [address] [place] [id number] Allergies No known active allergiesdocumented as of this encounter (statuses as of 01/14/2024) Medications Medication Sig Dispensed Refills Start Date [...] as of this encounter (statuses as of 01/14/2024) Active Problems Problem Noted Date Diagnosed Date Primary osteoarthritis of left knee 05/05/2020 HTN, goal below 140/90 11/08/2014 Type 2 diabetes mellitus wit h hemoglobin A1c goal of less than 7.0% 12/05/2011 Overview: ICD-10 update of inactive term Dyslipidemia, goal LDL below 100 12/05/2011 Generalized osteoarthritis 04/06/2010 documented as of this encounter (statuses as of 01/14/2024) Resolved Problems Problem Noted Date Diagnosed Date [...] as of this encounter (statuses as of 01/14/2024) Immunizations Name Administration Dates Next Due COVID-19 mRNA, LNP-s, No Pre serve, 2-Dose Series (haku) 07/30/2021,11/30/2020,11/09/2020 COVID-19, MRNA-LNP, 23-24, P F, 30 MCG/0.3 mL, 12 YRS AND ABOVE, IM ([facility] 06/30/2023 Covid-19, Mrna, Lnp-s, Pf, B ivalent, [...] encounter Miscellaneous Notes * Telephone Encounter - Luanne Amaro LPN - 01/14/2024 2:28 PM EDT New Referring physician:Kathy Chase HPI: Neck Which side extremity: left arm, numb and tingling Injury and date:fall in July 2023 Onset, progress and duration: since the fall Balance problems:slight limp due to left knee, may need surgery in the future Bladder or bowel disturbances:no Hand dominance for cervical and hand function:right Workman compensation/ Litigation/ Big Data Developer: Spine investigations done and date: Xray:11/25/2023 MRI:01/02/2024 CT scan: EMG/ NCV:no Spine treatment so far: Medications: naproxen, diclofenac gel , tylenol Physical therapy within last year:PT 8 sessions with Jett, Chiropractor therapy:no Brace use:no Pain management and Spinal epidural injections:no Spine surgery - Surgeon and year:no Significant Medical history: If diabetic HbA1c:10/08/2023 7.8 On blood thinners:aspirin 81 mg Osteoporosis screening:no Tobacco/ Illicit drug use:no 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 [place] [address] 09/06/2024 11:00 AM EST Office Visit Family Practice, [place] [address] [place] [phone] Nisa Goodrich PA-C [address] [place], [place] [phone] Scheduled Procedures Name Priority Associated Diagnoses Date/Ti [...] 05/10/2022, Additional history exists Colonoscopy 05/07/2028 05/07/2018, 0 01/2018, 01/13/2007 Colorectal Cancer Screening 05/07/2028 Lipid [...] and were consensually agreed upon. Care Teams Safety Inspector Relationship Specialty Start Date End Date Alonso Daigle MD [address] [place] [address] PCP - General 08/28/01 documented as of this encounter
--- OUTSIDE RECORDS SUMMARY | 2024-02-11 23:22 | External Medical Summary | Summary of Care ---
Author Name Unknown Organization [facility] Address [address] [facility] [address] Phone [phone] Care Team Providers Care Office Inspector Name Role Phone Alonso Daigle MD Primary Care Provider [phone] Reason for Referral * Precert (Within 10 days (routine)) - Pending Review Specialty Diagnoses / Procedures Referred By Delbert stephen Referred To Contact Radiology Diagnoses Cervical spine pain Cervical spinal stenosis Spondylosis, cervical, with myelopathy Chronic neck pain Upper extremity weakness Procedures CT C SPINE WO CONTRAST Kleber Batres MD [address] [facility] [place] [address] Referral ID Status Reason Start Date Expiration Date V isits Requested Visits Authorized [id number] Pending Review 01/30/2024 999 999 Reason for Visit * Reason Comments NEW PATIENT Cervical pain * Evaluate & Treat - Unlimited Visits (Within 10 days (routine)) - Authorized Specialty Diagnoses / Procedures Referred By Delbert stephen Referred To Contact Neuro/Ortho Surgery - Spine. / Neurological Surgery Diagnoses Cervical radiculopathy at C5 Kathy Chase MD [address] [place] [address] Referral ID Status Reason Start Date Expiration Date Visits Requested Visits Authorized [id number] Authorized Specialty Services Required 01/06/2024 999 999 Encounter Details Date Type Department Care Team (Late st Contact Info) Description 01/16/2024 1:30 PM EDT Office Visit Orthopaedics Spine Surgery, Anaya [place] [address] [place] [id number] Kleber Batres MD [address] [place] [id number] Cervical spinal stenosis*; Cervical spine pain; Spondylosis, cervical, with myelopathy; Chronic neck pain; Upper extremity weakness; Pre-op testing Allergies No known active allergiesdocumented as of [...] Active Benzonatate 100 MG Oral Capsule (Tessalon Perlinge)Indication s:COVID-19 Take 1 Capsule by mouth 3 [...] mRNA, LNP-s, No Pre serve, 2-Dose Series ([employer]) 07/30/2021,11/30/2020,11/09/2020 COVID-19, MRNA-LNP, 23-24, P F, 30 MCG/0.3 mL, 12 YRS AND ABOVE, IM (siOPTICA-Comirnaty) 06/30/2023 Covid-19, Mrna, Lnp-s, Pf, B ivalent, [...] Never Smokeless Tobacco: Never Tobacco Cessation:Counseling Given: No Comments:30 pack year history Alcohol Use Standard [...] Sign Reading Time Taken Comments Blood Pressure - - Pulse - - Temperature 36.8 C (98.3 F) 01/16/2024 1:09 PM ED T Respiratory Rate - - Oxygen Saturation - - Inhaled Oxygen Concentration - - Weight 113.4 kg (250 lb) 01/16/2024 1:09 PM EDT Height 172.7 cm (5' 8") 01/16/2024 1:09 PM EDT Body Mass Index 38.01 01/16/2024 1:09 PM EDT documented in this encounter Progress Notes * Kleber Batres MD - 01/16/2024 1:19 PM EDT Date of service: 01/16/2024 CHIEF COMPLAINT: Almas Pack is a 68 year old male presents with complaints/concerns of persistent neck pain with upper extremity radiculopathy and dysfunction. He also complains of bladder disturbances. The left-sided symptoms are worse and patient feels that his left arm is weak. He is unable to abduct on the left side. The symptoms have been ongoing for the past 6 or more months. Patient hastried number of conservative measures including physical therapy without any significant relief. Heis concerned about the persistent nature of the symptoms and wants to consider his options including possible surgical intervention. 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 The past medical, surgical, medication, family and social history was reviewed and is documented elsewhere in the chart. ROS: Negative except as outlined in HPI Vitals: Temp 36.8 C (98.3 F) (Temporal Artery) | Ht 1.727 m (5' 8") | Wt 113.4 kg (250 lb) | BMI 38.01 kg/m | BSA 2.33 m Body mass index is 38.01 kg/m. Physical Exam: General: alert, healthy and no distress. The general appearance appears normal. Cardiovascular system: Vascularity grossly preserved Spine evaluation Cervical, thoracic and lumbar spine: No paraspinal swelling. No deformity. Neurological examination: Motor power upper extremities - Shoulder abductors left side 3+/5, right side 5/5, elbow flexors, triceps, wrist flexors and extensors and intrinsic muscles of the hand is left side 4/5, right side 5/5. Motor power lower extremities - Bilateral hip flexors, knee extensors, ankle dorsiflexors, plantar flexors, EHL/EDL, FHL/FDL is 5/5. The deep tendon reflexes - Bilateral Biceps, triceps, brachioradialis, Patellar tendon, Achilles tendon are 1+ Paresthesias in the C4-5, C5-6, C6-7 distribution. Sensation are grossly preserved bilaterally in upper extremities. Sensation are grossly preserved bilaterally in the lower extremities. Radiological imaging: I independently reviewed the relevant radiological imaging including x-rays ordered at this visit and discussed it with the patient X-rays of the cervical spine including dynamic views show presence of multilevel degenerative changes. There is loss of cervical lordosis. MRI cervical 01/02/2024: C4-5, C5-6, C6-7 stenosis Advanced degenerative changes of the midcervical spine as described in detail above. This includes moderate thecal sac narrowing at C4-5 and C5-6 and multilevel foraminal stenosis from uncovertebral hypertrophy and spurring. Assessment & Plan: Pt is a 68 year old male here for the following problems/concerns: Cervical stenosis Cervical spondylotic myelopathy Left upper extremity dysfunction/weakness Chronic neck pain Longstanding bladder dysfunction We discussed the diagnosis, the natural history and the treatment options. Based on the findings various treatment options including the risks, benefits and alternatives were discussed. Patient is quite symptomatic in relation to his cervical stenosis and has progressive symptoms of cervical myeloradiculopathy because of the spinal cord compression. After detailed discussion he would like to consider the role of surgical intervention as well as start the process of optimization for the surgery. Surgical indication: C4-5, C5-6, C6-7 stenosis with persistent neck pain and symptoms of cervical myeloradiculopathy-left upper extremity dysfunction/weakness, chronic bladder disturbances. Failed conservative treatment. Symptoms persistent and affecting activities of daily living and work. Surgical plan: C4-5, C5-6, C6-7 anterior cervical diskectomy with fusion and instrumentation, iliaccrest bone grafting, bone marrow aspiration, allograft use, neuro monitoring and related proceduresas indicated intraoperatively. The final surgical plan will be based on updated imaging of the cervical spine. Surgical workup: 1. Clearance by the primary care 2. Investigations for medical optimization 3. CT scan of the cervical spine for surgical planning. Electrodiagnostic studies of the upper extremities. 4. Patient should continue his efforts towards optimization of his hemoglobin A1c as well as BMI. Surgical counseling: The surgical plan was formulated on the basis of shared decision making after detailed discussion with the patient about the patient's condition and the surgical outcomes. The patient is at increased risk for neurological deficit, dural tear, implant related problems, residual symptoms/ pain, nonunion, need for additional surgery especially in case of nonunion because of the history of type 2 diabetes In view of the complex nature of the patient's problem and the major surgery involved, the patient was made aware of higher risk of the common surgical complications including but not limited to the: development of temporary or permanent neurological deficit and weakness due to injury to the nerves development of bladder and bowel disturbances dural tear with cerebrospinal fluid leak requiring additional procedures superficial and deep tissue infection including meningitis and discitis wound healing problems development of nerve compression including epidural hematoma, recurrent disc herniation, recurrenceof the condition development of instability and nonunion, failure of hardware, malposition and displacement of the hardware development of chronic pain syndrome, inadequate relief, persistence or worsening of symptoms excessive blood loss and the need for blood transfusion need for additional surgery and procedures including augmenting fixation and fusion as necessary the need for transfer to a higher center for management of unforeseen complications that need specialties not available at [facility] skin abrasions related to positioning and taping difficulty swallowing and change in the voice that may require additional treatment if persistent including the placement of a feeding tube inadvertent visceral and vascular injuries The medical complications including but not limited to deep venous thrombosis and pulmonary embolism lymph edema of the extremities pneumonia, urinary infection and/ or renal dysfunction myocardial infraction, stroke life-threatening cardiopulmonary complications blindness including temporary and permanent visual disturbances drug and other allergic reactions prolonged intubation and ICU care the need for a wakeup test during anesthesia and sense of awareness injury to the tongue all the teeth in relation to anesthesia or the neuro-monitoring feeling of wakefulness and recall in relation to anesthesia other anesthesia related complications etc. flare-up of pre-existing medical conditions Inherent issues associated with a major surgical intervention for a complex spine problem like anxiety, psychological distress, pain, discomfort related to nerve irritation, difficulty in regaining desired level of function, activity or occupational status There could be additional unforeseen surgical, anesthesia and medical complications in the malgorzata andpost operative period. The patient was given the opportunity to ask questions. The patient expressed adequate understanding to the risk and complications and wants to proceed with the intervention. The patient was also informed about the possibility of delay in surgery due to scheduling problems.If the patient experiences any acute progression of the symptoms, development of neurological deficit or functional deterioration, the patient is to report to the emergency room for further evaluation and treatment. Additional recommendations: Activity modification as tolerated Pain medications as per the primary care. If the patient has persistence or worsening of symptoms additional investigations will be recommended. Warning signs have been discussed. Follow up: 6-8 weeks . Reach out earlier if any neurological worsening. The patient expressed understanding and agreement to the plan. Complexity of decision making: High I spent 45 minutes on 01/16/2024 in preparation, delivery and documentation of the care provided to the patient, excluding any time spent on the performance of the procedure are separately billable service. Kleber Batres MD This chart was completed in part utilizing [employer] Speech Voice Recognition Software. Grammatical errors, random word insertions, prounoun errors and incomplete sentences are an occasional consequence of this system due to software limitations, ambient noise, and hardware issues. Any formal questions or concerns about the content, text, or information contained within the body of this dictation should be directly addressed to the provider for clarification. 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: Spine investigations done and date: Xray:11/25/2023 MRI:01/02/2024 [...] 2:15 PM EDT Cardiac Studies Cardiac Studies, [address] [place] [address] 01/22/2024 3:00 PM EDT [facility] [place] [address] 02/16/2024 8:00 AM EDT Office Visit Ophthalmology, [facility] [address] [facility] [place] [address] Brandt Washington, DO [address] [facility] [place] [address] 02/26/2024 8:40 AM EDT NeuroDiagnostic Study Neurophysiology [facility] [address] [facility] [place] [address] Ralph Torrez, DO [address] [facility] [place] [address] 03/12/2024 8:30 AM EDT Office Visit Orthopaedics Spine Surgery, Anaya [place] [address] [place] [address] Kleber Batres MD [address] [place] [address] 09/06/2024 11:00 AM EST Office Visit [facility] [address] [place] [id number] Nisa Goodrich PA-C [address] [place] [address] Pending Results Name Type Priority Associated Diagnoses Date /Time XR C SPINE 4-5 VIEWS Medical Imaging Routine Cervical spine pain 01/16/2024 1:35 PM EDT Scheduled Orders Name Type Priority Associated Diagnoses Orde r Schedule CT C SPINE WO CONTRAST Medical Imaging Routine Cervical spine pain Cervical spinal stenosis Spondylosis, cervical, with myelopathy Chronic neck pain Upper extremity weakness Expected: 01/30/2024, Expires: 02/15/2025 EKG COMPLETE (TRACING AND INTERP) EKG Routine Cervical spine pain Cervical spinal stenosis Spondylosis, cervical, with myelopathy Chronic neck pain Upper extremity weakness Pre-op testing Expected: 01/16/2024, Expires: 01/15/2025 XR CHEST 2 VIEWS Medical Imaging Routine Cervical spine pain Cervical spinal stenosis Spondylosis, cervical, with myelopathy Chronic neck pain Upper extremity weakness Pre-op testing Expected: 01/16/2024, Expires: 01/15/2025 SARS-COV-2 (COVID-19), NAAT Lab Routine Cervical spine pain Cervical spinal stenosis Spondylosis, cervical, with myelopathy Chronic neck pain Upper extremity weakness Pre-op testing Expected: 01/16/2024, Expires: 01/15/2025 URINALYSIS, REFLEX TO MICROSCOPIC Lab Routine Cervical spine pain Cervical spinal stenosis Spondylosis, cervical, with myelopathy Chronic neck pain Upper extremity weakness Pre-op testing Expected: 01/16/2024, Expires: 01/15/2025 PT INR Lab Routine Cervical spine pain Cervical spinal stenosis Spondylosis, cervical, with myelopathy Chronic neck pain Upper extremity weakness Pre-op testing Expected: 01/16/2024, Expires: 01/15/2025 APTT Lab Routine Cervical spine pain Cervical spinal stenosis Spondylosis, cervical, with myelopathy Chronic neck pain Upper extremity weakness Pre-op testing Expected: 01/16/2024, Expires: 01/15/2025 CBC WITH WBC DIFFERENTIAL Lab Routine Cervical spine pain Cervical spinal stenosis Spondylosis, cervical, with myelopathy Chronic neck pain Upper extremity weakness Pre-op testing Expected: 01/16/2024, Expires: 01/15/2025 STAPH AUREUS PCR Lab Routine Cervical spine pain Cervical spinal stenosis Spondylosis, cervical, with myelopathy Chronic neck pain Upper extremity weakness Pre-op testing Expected: 01/16/2024, Expires: 01/15/2025 HEMOGLOBIN A1C Lab Routine Cervical spine pain Cervical spinal stenosis Spondylosis, cervical, with myelopathy Chronic neck pain Upper extremity weakness Pre-op testing Expected: 01/16/2024, Expires: 01/15/2025 TYPE AND SCREEN Lab Routine Cervical spine pain Cervical spinal stenosis Spondylosis, cervical, with myelopathy Chronic neck pain Upper extremity weakness Pre-op testing Expected: 01/16/2024, Expires: 01/15/2025 COMPREHENSIVE METABOLIC PANEL Lab Routine Cervical spine pain Cervical spinal stenosis Spondylosis, cervical, with myelopathy Chronic neck pain Upper extremity weakness Pre-op testing Expected: 01/16/2024, Expires: 01/15/2025 COTININE, URINE SCREEN Lab Routine Cervical spine pain Cervical spinal stenosis Spondylosis, cervical, with myelopathy Chronic neck pain Upper extremity weakness Pre-op testing Expected: 01/16/2024, Expires: 01/15/2025 ABO/RH Lab Routine Cervical spine pain Cervical spinal stenosis Spondylosis, cervical, with myelopathy Chronic neck pain Upper extremity weakness Pre-op testing Expected: 01/16/2024, Expires: 01/15/2025 Scheduled Procedures Name Priority Associated Diagnoses Date/Ti [...] Cancer Screening 05/07/2028 Lipid Panel 10/08/2028 10/08/2023, 09/0 05/2022, 05/10/2022, Additional history exists DTaP,Tdap,and Td [...] as of this encounter Visit Diagnoses Diagnosis Cervical spinal stenosis- Primary Spinal stenosis in cervical region Cervical spine pain Cervicalgia Spondylosis, cervical, with myelopathy Cervical spondylosis with myelopathy Chronic neck pain Cervicalgia Upper extremity weakness Other musculoskeletal symptoms referable to limbs Pre-op testing Preoperative examination, unspecified documented in this encounter Advance Directives * Full Code (Latest Code Status on File) Date Activated Date Inactivated Comments 07/05/2019 10:32 AM 07/05/2019 4:23 PM This order reflects the patients wishes and were consensually agreed upon. Care Teams Office Inspector Relationship Specialty Start Date End Date Alonso Daigle MD [address] [place] [address] PCP - General 08/28/01 documented as of this encounter
--- OUTSIDE RECORDS SUMMARY | 2024-02-11 23:22 | External Medical Summary | Summary of Care ---
Author Name Unknown Organization [facility] Address [address] [address] Phone [phone] Care Team Providers Care American History Professor Name Role Phone Alonso Daigle MD Primary Care Provider [phone]- [phone] Reason for Referral * Evaluate & Treat - Unlimited Visits (Within 10 days (routine)) - Authorized Specialty Diagnoses / Procedures Referred By Contac t Referred To Contact Neuro/Ortho Surgery - Spine. / Neurological Surgery Diagnoses Cervical radiculopathy at C5 Kathy Chase MD [email or web address] [place] [address] Referral ID Status Reason Start Date Expiration Date Visits Requested Visits Authorized [id number] Authorized Specialty Services Required 01/06/2024 999 999 Question Answer Referral Priority Within 10 days (routine) Where should this appointment be scheduled? [facility] region: Neck - Cervical Do you have any recent complete loss of bladder or bowel function? No Reason for Visit * Reason Comments Follow Up C spine Encounter Details Date Type Department Care Team (Latest Contact Info) Description 01/06/2024 8:45 AM EDT Office Visit Orthopaedics [facility] [address] [place] [address] Kathy Chase MD [address] [place] [address] Cervical radiculopathy at C5* Allergies No known active allergiesdocumented as of this encounter (statuses as of 01/06/2024) Medications Medication Sig Dispensed Refills Start Date [...] as of this encounter (statuses as of 01/06/2024) Active Problems Problem Noted Date Diagnosed Date Primary osteoarthritis of left knee 05/05/2020 HTN, goal below 140/90 11/08/2014 Type 2 diabetes mellitus wit h hemoglobin A1c goal of less than 7.0% 12/05/2011 Overview: ICD-10 update of inactive term Dyslipidemia, goal LDL below 100 12/05/2011 Generalized osteoarthritis 04/06/2010 documented as of this encounter (statuses as of 01/06/2024) Resolved Problems Problem Noted Date Diagnosed Date [...] as of this encounter (statuses as of 01/06/2024) Immunizations Name Administration Dates Next Due COVID-19 mRNA, LNP-s, No Pre serve, 2-Dose Series ([employer]) 07/30/2021,11/30/2020,11/09/2020 COVID-19, MRNA-LNP, 23-24, P F, 30 MCG/0.3 mL, 12 YRS AND ABOVE, IM ([employer] 06/30/2023 Covid-19, Mrna, Lnp-s, Pf, B ivalent, 30 Mcg, IM, 12 yrs and above ([employer]) 06/20/2022 HEP A - Hepatitis A (Adult [...] Progress Notes * Kathy Chase MD - 01/06/2024 8:40 AM EDT Almas Pack is a 68 year old male who presents for follow up of left greater than right shoulder to [facility]. Almas Pack is here with his daughter History: Chief Complaint Patient presents with Follow Up C spine Nursing Notes: Saloni Jean-Baptiste, MED ASSIST 01/06/24 0841 Sign at exiting of workspace Patient presents today for C-Spine MRI results. 68-year-old male presents today for follow up of hjdf-ilnbtii-ldne-right shoulder pain that startedabout 7 months ago after a fall. I initially saw him 11/25/2023 at which point pain was bilateral and radiates down the biceps to his thumb and was associated with some tingling. 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 Also enjoys fishing. He did not have improvement in the left arm with physical therapy, did have improvement with the right arm. Presentation was concerning for C-spine pathology and MRI was ordered. Here to review results of MRI today. He notes that symptoms are still bothersome. Can only hold his arms up overhead now for a brief period of time before the symptoms come on. Review of systems: All others negative except those noted above in HPI. Objective: Physical Exam There were no vitals filed for this visit. Estimated body mass index is 39.23 kg/m as calculated from the following: Height as of 09/03/23: 1.727 m (5' 8"). Weight as of 11/17/23: 117 kg (258 lb). General: generally well-nourished and in no acute distress HEENT: normocephalic, atraumatic, sclera anicteric Psych: mood and affect normal , cooperative Resp: equal chest rise, non-tachypneic, non-labored breathing Skin: no rash, normal Neuro: Coordination: normal; MSK: Shoulder exam, bilateral Exam not performed today Radiology (I have personally reviewed the following films): EXAM: MRI CERVICAL SPINE WITHOUT CONTRAST HISTORY: suspect c5/c6 radiculaopthy eval for nerve compression COMPARISON: November 25, 2023. TECHNIQUE: Multiplanar multisequence MRI of the cervical spine without contrast was performed. FINDINGS: The craniocervical junction appears unremarkable. The cerebellar tonsils are normally positioned. Signal in the cervical spinal cord is normal. Alignment of the cervical vertebral bodies is anatomic.There is disc space narrowing at C3-4, C4-5, C5-6, and C6-7 with associated discogenic endplate changes. On the STIR imaging there are no additional focal marrow signal abnormalities. Evaluation of the prevertebral soft tissues is unremarkable. At C2-3 there is no thecal sac stenosis. Facet degeneration causes minimal left foraminal narrowing. At C3-4 there is no thecal sac stenosis. Uncovertebral hypertrophy and spurring causes moderate left and mild right foraminal narrowing. At C4-5 posterior osteophyte causes moderate thecal sac narrowing without cord signal change. Uncovertebral hypertrophy and spurring at this level causes moderate bilateral foraminal stenosis. At C5-6 again there is posterior osteophyte causing moderate thecal sac narrowing without cord signal change. Uncovertebral hypertrophy and spurring at this level causes severe right and moderate left foraminal narrowing. At C6-7 there is mild thecal sac narrowing from posterior osteophyte. Uncovertebral hypertrophy causes moderate foraminal narrowing bilaterally. At C7-T1 there is no thecal sac stenosis or foraminal compromise. IMPRESSION: Advanced degenerative changes of the midcervical spine as described in detail above. This includes moderate thecal sac narrowing at C4-5 and C5-6 and multilevel foraminal stenosis from uncovertebral hypertrophy and spurring. Assessment and Plan: ICD-10-CM 1. Cervical radiculopathy at C5 M54.12 Pleasant 68-year-old male seen today for follow up of gitr-cntrjwd-jbjm-right shoulder pain with pain that radiates down the arm. We reviewed the results of his MRI in detail today. I believe that heis likely mostly symptomatic from his cervical spine pathology and not his very mild supraspinatus tear. Discussed treatment options including referral to pain management versus ortho spine surgery. After discussion with his family he would like to discuss his findings with a spine surgeon. Referral was placed. He will follow up with primary care Sports Medicine as needed. Could consider PRP for his supraspinatus tear, but likely would not be surgical intervention in hisalready done physical therapy. The above assessment and plan were discussed at length. All questions were answered, and the patient expressed understanding. Kathy Chase MD Primary Care Sports Medicine [facility] Orthopaedics [address] [address] documented in this encounter Nursing Notes * Saloni Jean-Baptiste MED ASSIST - 01/06/2024 8:41 AM EDT Patient presents today for C-Spine MRI results. documented in this encounter Plan of Treatment Upcoming Encounters Date Type Department Care Team (Late st Contact Info) Description 01/16/2024 7:40 AM EDT Laboratory [facility], [place] [address] [facility] [place] [phone] [facility] [address] [place] [place] [address] 01/16/2024 1:30 PM EDT Office Visit Orthopaedics Spine Surgery, [facility] [address] [place] [address] Kleber Batres MD [address] [place] [address] 02/16/2024 8:00 AM EDT Office Visit Ophthalmology, [facility] [address] [facility] [place] [address] Brandt Washington, DO [address] [place], [place] [id number] 09/06/2024 11:00 AM EST Office Visit Family [facility] [address] [place] [phone] Nisa Goodrich PA-C [address], [place] [phone] Scheduled Procedures Name Priority Associated Diagnoses Date/Ti me COLONOSCOPY FLEXIBLE PROXIMA L DIAGNOSTIC Recall Encounter for screening colonoscopy Scheduled Referrals Name Type Priority Associated Diagnoses Orde r Schedule SPINE SURGERY REFERRAL OP Referral Within 10 days (routine) Cervical radiculopathy at C5 Ordered: 01/06/2024 Health Maintenance Due Date Last Done Comments [...] of this encounter Visit Diagnoses Diagnosis Cervical radiculopathy at C5- Primary Brachial neuritis or radiculitis nos documented in this encounter Advance Directives Latest Code Status on File Code Status Date Activated Date Inactivated Comments Full Code 07/05/2019 10:32 AM 07/05/2019 4:23 PM This order reflects the patients wishes and were consensually agreed upon. Care Teams American History Professor Relationship Specialty Start Date End Date Alonso Daigle MD [address] [place] [address] PCP - General 08/28/01 documented as of this encounter
--- OUTSIDE RECORDS SUMMARY | 2024-02-11 23:22 | External Medical Summary | Summary of Care ---
Author Name Unknown Organization [facility] Address [address] [place] [address] Phone [phone] Care Team Providers Care Falafel Cart Cook Name Role Phone Priyank Young MD Primary Care Provider [phone]- [phone] Reason for Referral * Evaluate & Treat - Unlimited Visits (Within 10 days (routine)) - Authorized Specialty Diagnoses / Procedures Referred By Contac t Referred To Contact Pharmacist / Pharmacy Diagnoses Type 2 diabetes mellitus with hemoglobin A1c goal of less than 7.0% ([facility]) Priyank Young MD [address] [place] [address] Referral ID Status Reason Start Date Expiration Date Visits Requested Visits Authorized [id number] Authorized Specialty Services Required 01/20/2024 99 99 Question Answer Referral Priority Within 10 days (routine) Where should this appointment be scheduled? [facility] Referring Provider Role: Primary Care Reason for Referral: DM Target A1c: < 7 Comments Pharmacist Medication Therapy Management: Minimum frequency patient should be seen in person for medication management: as appropriate per clinical condition and patient status By my signature, I understand that my patient Almas Pack will have his medication therapy managed by the [facility] Medication Therapy Disease Management [facility] ([facility]) per established policies, procedures, and protocols. I also certify that this referral may serve as an initiation of service for the management of drug therapy in the above noted patient. [facility] providers will be responsible for scheduling patient visits, obtaining appropriate laboratory studies, and adjusting medication management therapy per patient's need, in addition to those roles spelled out in the clinic policy, procedures, and drug management protocols. I understand that the service provided by the [facility] is voluntary and have informed patient that they can refuse the service at their discretion. I am aware that the [facility] will provide me with a copy of the patient encounter via my [employer]. I authorize the [facility] to carry out these activities on my behalf. I consider this program to be a necessary part of the patient's medical care. PRIYANK YOUNG Reason for Visit * Reason Onset Date Comments Test Results Lab 01/19/2024 Encounter Details Date Type Department Care Team (Late st Contact Info) Description 01/19/2024 Telephone [facility] [address] [place] [address] Priyank Young MD [address] [place] [address] Test Results Lab Allergies No known active allergiesdocumented as of this encounter (statuses as of 01/27/2024) Medications Medication Sig Dispensed Refills Start Date [...] as of this encounter (statuses as of 01/27/2024) Active Problems Problem Noted Date Diagnosed Date [...] as of this encounter (statuses as of 01/27/2024) Resolved Problems Problem Noted Date Diagnosed Date [...] as of this encounter (statuses as of 01/27/2024) Immunizations Name Administration Dates Next Due COVID-19 mRNA, LNP-s, No Pre serve, 2-Dose Series ([employer]) 07/30/2021,11/30/2020,11/09/2020 COVID-19, MRNA-LNP, 23-24, P F, 30 MCG/0.3 mL, 12 YRS AND ABOVE, IM ([facility]) 06/30/2023 Covid-19, Mrna, Lnp-s, Pf, B ivalent, 30 Mcg, IM, 12 yrs and above ([employer]) 06/20/2022 HEP A - Hepatitis A (Adult [...] daily tablets are covered by insurance per [employer]. Start 3mg daily x 30 days (dose [...] Clinical Pharmacy Services ([facility]) [phone] 01/20/2024 12:48 PM documented in this encounter Plan of Treatment Upcoming Encounters Date Type Department Care Team (Late st Contact Info) Description 02/16/2024 7:40 AM EDT [facility] [address] [facility] [place] [phone] Ellie Hurtado [address] [place] [address] 02/16/2024 8:00 AM EDT Office Visit Ophthalmology, [address] [place] [address] Brandt Washington, DO [address] [place] [address] 02/16/2024 8:30 AM EDT Office Visit Pharmacy, [address] [place] [address] [facility] [address] [place] [address] 02/26/2024 8:40 AM EDT NeuroDiagnostic Study Neurophysiology [address] [place] [address] Ralph Torrez, DO [address] [facility], [place] [address] 03/12/2024 8:30 AM EDT Office Visit Orthopaedics Spine Surgery, [address] [place] [address] Kleber Batres MD [address] [place] [address] 09/06/2024 11:00 AM EST Office Visit [facility] [address] [place], [place] [address] [phone] Nisa Goodrich PA-C [address] [place] [address] Scheduled Orders Name Type Priority Associated Diagnoses [...] Cancer Screening 05/07/2028 Lipid Panel 10/08/2028 10/08/2023, 0 05/2022, 05/10/2022, Additional history exists DTaP,Tdap,and Td [...] and were consensually agreed upon. Care Teams Falafel Cart Cook Relationship Specialty Start Date End Date Priyank Young MD [address] [place] [address] PCP - General 08/28/01 documented as of this encounter
--- OUTSIDE RECORDS SUMMARY | 2024-02-11 23:22 | External Medical Summary | Summary of Care ---
Author Name Unknown Organization [facility] Address [address] [place] [address] Phone [phone] Care Team Providers Care Mobile Home Installer Name Role Phone Alonso Daigle MD Primary Care Provider +1- [phone] Reason for Visit * Reason Comments Medication Refill Encounter Details Date Type Department Care Team (Late st Contact Info) Description 12/14/2023 Refill [facility] [address] [place] [address] Alonso Daigle MD [address] [place] [address] HTN, goal below 140/90 Allergies No known active allergiesdocumented as of this encounter (statuses as of 12/16/2023) Medications Medication Sig Dispensed Refills Start Date [...] Active Fexofenadine HCl 180 MG Oral Tablet (Amairani)Indicat ions:Chronic rhinitis Take 1 Tab by mouth daily. 90 Tab 3 04/07/2021 Active Benzonatate 100 MG Oral Capsule (Tesdexterxenia Angelo)Indicatio ns:COVID-19 Take 1 Capsule by mouth 3 times a day as needed for Cough. Do not cut, crush, or chew. 50 Capsule 1 08/28/2023 Active Montelukast Sodium 10 MG Oral Tablet (Singulair)Indic ations:COVID-19 Take 1 Tablet by mouth in the [...] 0 Active Naproxen 500 MG Oral Tablet (Naprosyn)Indica tions:Chronic pain of both shoulders,Cervic al spine pain Take 1 Tablet by mouth in the morning and 1 Tablet before bedtime. With food.. 60 Tablet 5 11/25/2023 Active Lisinopril 20 MG Oral Tablet (Prinivil)Indica tions:HTN, goal below 140/90 TAKE ONE TABLET BY MOUTH EVERY DAY 90 Tablet 2 12/16/2023 12/15/2024 Active Atorvastatin Calcium 80 MG Oral Tablet (Lipitor) TAKE ONE TABLET BY MOUTH EVERY DAY 90 Tablet 2 12/16/2023 12/15/2024 Active Fluticasone Propionate 50 MCG/ACT Nasal Suspension (Flonase) ADMINISTER 2 SPRAYS INTO EACH NOSTRIL DAILY IN THE MORNING 48 g 2 12/16/2023 12/15/2024 Active Atorvastatin Calcium 80 MG Oral Tablet (Lipitor) TAKE ONE TABLET BY MOUTH EVERY DAY 90 Tablet 3 11/27/2022 12/14/2023 Discontinue d(Refill) Lisinopril 20 MG Oral Tablet (Prinivil)Indica tions:HTN, goal below 140/90 TAKE ONE TABLET BY MOUTH EVERY DAY 90 Tablet 3 11/27/2022 12/14/2023 Discontinue d(Refill) Fluticasone Propionate 50 MCG/ACT Nasal Suspension (Flonase) ADMINISTER 2 SPRAYS INTO EACH NOSTRIL DAILY IN THE MORNING 48 g 3 11/17/2022 12/14/2023 Discontinue d(Refill) documented as of this encounter (statuses as of 12/16/2023) Active Problems Problem Noted Date Diagnosed Date Primary osteoarthritis of left knee 05/05/2020 HTN, goal below 140/90 11/08/2014 Type 2 diabetes mellitus wit h hemoglobin A1c goal of less than 7.0% 12/05/2011 Overview: ICD-10 update of inactive term Dyslipidemia, goal LDL below 100 12/05/2011 Generalized osteoarthritis 04/06/2010 documented as of this encounter (statuses as of 12/16/2023) Resolved Problems Problem Noted Date Diagnosed Date [...] as of this encounter (statuses as of 12/16/2023) Immunizations Name Administration Dates Next Due COVID-19 mRNA, LNP-s, No Pre serve, 2-Dose Series ([employer]) 07/30/2021,11/30/2020,11/09/2020 COVID-19, MRNA-LNP, 23-24, P F, 30 [...] encounter Miscellaneous Notes * Telephone Encounter - Sanaz Soto RPh - 12/16/2023 6:29 AM EDTSigned Prescriptions: Disp Refills Lisinopril 20 MG Oral Tablet (Prinivil) 90 Tab*2 Sig: TAKE ONE TABLET BY MOUTH EVERY DAY Authorizing Provider: NISA GOODRICH Ordering User: SANAZ SOTO Atorvastatin Calcium 80 MG Oral Tablet (Li*90 Tab*2 Sig: TAKE ONE TABLET BY MOUTH EVERY DAY Authorizing Provider: NISA GOODRICH Ordering User: SANAZ SOTO Flutica sone Propionate 50 MCG/ACT Nasal Terrell*48 g 2 Sig: ADMINISTER 2 SPRAYS INTO EACH NOSTRIL DAILY IN THE MORNING Authorizing Provider: NISA GOODRICH Ordering User: SANAZ SOTO * Telephone Encounter - 12/14/2023 12:14 AM EDTPending Prescriptions: Disp Refills Lisinopril 20 MG Oral Tablet (Prinivil) 90 Tab*3 Sig: TAKE ONE TABLET BY MOUTH EVERY DAY Atorvastatin Calcium 80 MG Oral Tablet (Li*90 Tab*3 Sig: TAKE ONE TABLET BY MOUTH EVERY DAY * Telephone Encounter - 12/14/2023 12:14 AM EDTPending Prescriptions: Disp Refills Lisinopril 20 MG Oral Tablet (Prinivil) 90 Tab*3 Sig: TAKE ONE TABLET BY MOUTH EVERY DAY Atorvastatin Calcium 80 MG Oral Tablet (Li*90 Tab*3 Sig: TAKE ONE TABLET BY MOUTH EVERY DAY Fluticasone Propionate 50 MCG/ACT Nasal Terrell*48 g 3 Sig: ADMINISTER 2 SPRAYS INTO EACH NOSTRIL DAILY IN THE MORNING documented in this encounter Plan of Treatment Upcoming Encounters Date Type Department Care Team (Late st Contact Info) Description 12/30/2023 8:30 AM EDT Office Visit Orthopaedics [facility] [address] [facility] [place] [address] Kathy Chase MD [address] [facility] [place] [address] 01/16/2024 7:40 AM EDT [facility] [address] [place] [phone] [facility] [address] [place] [address] 02/16/2024 8:00 AM EDT Office Visit Ophthalmology, [facility] [address] [facility] [place] [address] Brandt Washington, [address] [place] [address] 09/06/2024 11:00 AM EST Office Visit [facility] [place] [address] [place] [address] Nisa Goodrich PA-C [address] [place] [address] Scheduled Procedures Name Priority Associated Diagnoses Date/Ti [...] as of this encounter Visit Diagnoses Diagnosis HTN, goal below 140/90 Unspecified essential hypertension documented in this encounter Advance Directives Latest Code Status on File Code Status Date Activated Date Inactivated Comments Full Code 07/05/2019 10:32 AM 07/05/2019 4:23 PM This order reflects the patients wishes and were consensually agreed upon. Care Teams Mobile Home Installer Relationship Specialty Start Date End Date Alonso Daigle MD [address] [place] [address] PCP - General 08/28/01 documented as of this encounter
--- OUTSIDE RECORDS SUMMARY | 2024-02-11 23:22 | External Medical Summary | Summary of Care ---
Author Name Unknown Organization [facility] Address [address] [facility] [place] [address] Phone [phone] Care Team Providers Care Vibration Technician Name Role Phone Alonso Daigle MD Primary Care Provider +1- [phone] Reason for Referral * Precert (Within 10 days (routine)) - Pending Review Specialty Diagnoses / Procedures Referred By Contac t Referred To Contact Radiology Diagnoses Cervical radiculopathy at C5 Chronic pain of both shoulders Procedures MRI C SPINE WO CONTRAST Kathy Chase MD [address] [place] [address] Referral ID Status Reason Start Date Expiration Date V isits Requested Visits Authorized [id number] Pending Review 12/30/2023 999 999 Reason for Visit * Reason Comments Follow Up Bilateral shoulder Encounter Details Date Type Department Care Team (Latest Contact Info) Description 12/30/2023 8:30 AM EDT Office Visit Orthopaedics [facility] [address] [place] [address] Kathy Chase MD [address] [place] [address] Cervical radiculopathy at C5*; Chronic pain of both shoulders Allergies No known active allergiesdocumented as of this encounter (statuses as of 12/30/2023) Medications Medication Sig Dispensed Refills Start Date [...] as of this encounter (statuses as of 12/30/2023) Active Problems Problem Noted Date Diagnosed Date Primary osteoarthritis of left knee 05/05/2020 HTN, goal below 140/90 11/08/2014 Type 2 diabetes mellitus wit h hemoglobin A1c goal of less than 7.0% 12/05/2011 Overview: ICD-10 update of inactive term Dyslipidemia, goal LDL below 100 12/05/2011 Generalized osteoarthritis 04/06/2010 documented as of this encounter (statuses as of 12/30/2023) Resolved Problems Problem Noted Date Diagnosed Date [...] as of this encounter (statuses as of 12/30/2023) Immunizations Name Administration Dates Next Due COVID-19 mRNA, LNP-s, No Pre serve, 2-Dose Series ([employer]) 07/30/2021,11/30/2020,11/09/2020 COVID-19, MRNA-LNP, 23-24, P F, 30 MCG/0.3 mL, 12 YRS AND ABOVE, IM ([employer] [facility]) 06/30/2023 Covid-19, Mrna, Lnp-s, Pf, B ivalent, [...] Progress Notes * Kathy Chase MD - 12/30/2023 9:14 AM EDT Almas Pack is a 68 year old male who presents for follow up of left greater than right shoulder to [facility]. Almas Pack is here unaccompanied History: Chief Complaint Patient presents with Follow Up Bilateral shoulder Nursing Notes: Saloni Jean-Baptiste MED RAND 12/30/23 0819 Sign at exiting of workspace Patient presents today for bilateral shoulder. Pt went to 7 PT sessions, states his left shoulder has not shown improvement. States it is limiting what he does. 68-year-old male presents today for follow up of wupz-givdvlz-wavc-right shoulder pain that startedabout 6 months ago after a fall. I initially saw him 11/25/2023 at which point pain was bilateral and radiates down the biceps to his thumb and was associated with some tingling. 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 Also enjoys fishing. He was referred him to physical therapy and is here today for follow up. He reports improvement in the right arm symptoms, but still has constant pain and tingling down the left arm and still has pain with reaching up overhead. Review of systems: All others negative except [...] (I have personally reviewed the following films): No new images obtained today. Assessment and Plan: ICD-10-CM 1. Cervical radiculopathy at C5 M54.12 2. Chronic pain of both shoulders M25.511 G89.29 M25.512 Pleasant 68-year-old male seen today for follow up of tody-ujjrcix-epza-right shoulder pain with pain that radiates down the arm. Presentation is still consistent with multifactorial etiology of painas he was evidence of both the cervical radiculopathy as well as primary shoulder pathology. Limited musculoskeletal ultrasound was performed of the left shoulder today that did show a 25-50% interstitial tear of the supraspinatus with subacromial bursitis. This is likely contributing to some of his pain with overhead motions. Suspect that his chronic pain that radiates down the arm is coming from his neck. As he was completed physical therapy without much benefit, recommend MRI of the neck to look for evidence of location of nerve compression. I will see him back 2-3 days after the MRI. Consider pain management referral vs spine surgery referral. We discussed options of subacromial injection and PRP today. Patient would like to hold off on any injections of the shoulder at this time. He will continue with physical therapy. The above assessment and plan were discussed at length. All questions were answered, and the patient expressed understanding. Kathy Chase MD Primary Care Sports Medicine [facility] [address] [place] [address] documented in this encounter Nursing Notes * Saloni Jean-Baptiste MED ASSIST - 12/30/2023 8:18 AM EDT Patient presents today for bilateral shoulder. Pt went to 7 PT sessions, states his left shoulder has not shown improvement. States it is limiting what he does. documented in this encounter Plan of Treatment Upcoming Encounters Date Type Department Care Team (Late st Contact Info) Description 01/02/2024 9:45 AM EDT Imaging Radiology [facility] 1st [facility], [address] [place] [address] 01/06/2024 8:45 AM EDT Office Visit Orthopaedics [address] [place] [address] Kathy Chase MD [employer] [address] [place] [address] 01/16/2024 7:40 AM EDT Laboratory Laboratory, [place] [address] [place] [facility] [place] [phone] [facility] [address] [facility] [place] [id number] 02/16/2024 8:00 AM EDT Office Visit Ophthalmology, [facility] [address] [place] [address] Brandt Washington, DO [address] [place] [address] 09/06/2024 11:00 AM EST Office Visit Family Practice, [place] [address] [facility] [address] Nisa Goodrich PA-C [address] [facility] [place] [id number] Scheduled Orders Name Type Priority Associated Diagnoses Orde r Schedule MRI C SPINE WO CONTRAST Medical Imaging Routine Cervical radiculopathy at C5 Chronic pain of both shoulders Expected: 12/30/2023, Expires: 01/28/2025 Scheduled Procedures Name Priority Associated Diagnoses Date/Ti [...] C5- Primary Brachial neuritis or radiculitis nos Chronic pain of both shoulders Pain in joint, shoulder region documented in this encounter Advance Directives Latest Code Status on File Code Status Date Activated Date Inactivated Comments Full Code 07/05/2019 10:32 AM 07/05/2019 4:23 PM This order reflects the patients wishes and were consensually agreed upon. Care Teams Vibration Technician Relationship Specialty Start Date End Date Alonso Daigle MD [address] [place] [address] PCP - General 08/28/01 documented as of this encounter
--- OUTSIDE RECORDS SUMMARY | 2024-02-11 23:22 | External Medical Summary | Summary of Care ---
Author Name Unknown Organization [facility] [address] [facility] [address] Phone [phone] Care Team Providers Care Pump Stitcher Name Role Phone Alonso Daigle MD Primary Care Provider +1- [phone] Reason for Referral * Precert (Within 10 days (routine)) - Pending Review Specialty Diagnoses / Procedures Referred By Delbert stephen Referred To Contact Radiology Diagnoses Cervical spine pain Cervical spinal stenosis Spondylosis, cervical, with myelopathy Chronic neck pain Upper extremity weakness Procedures CT C SPINE WO CONTRAST Kleber Batres MD [address] [place] [address] [facility] [place] [address] Referral ID Status Reason Start Date Expiration Date V isits Requested Visits Authorized [id number] Pending Review 01/30/2024 999 999 Reason for Visit * Reason Comments NEW PATIENT Cervical pain * Evaluate & Treat - Unlimited Visits (Within 10 days (routine)) - Authorized Specialty Diagnoses / Procedures Referred By Delbert stephen Referred To Contact Neuro/Ortho Surgery - Spine. / Neurological Surgery Diagnoses Cervical radiculopathy at C5 Kathy Chase MD [address] [place] [address] Referral ID Status Reason Start Date Expiration Date Visits Requested Visits Authorized [id number] Authorized Specialty Services Required 01/06/2024 999 999 Encounter Details Date Type Department Care Team (Late st Contact Info) Description 01/16/2024 1:30 PM EDT Office Visit Orthopaedics Spine Surgery, [place] [address] [place] [address] Kleber Batres MD [address] [place] [id number] Cervical spinal stenosis*; Cervical spine pain; Spondylosis, [...] mRNA, LNP-s, No Pre serve, 2-Dose Series ([employer]) 07/30/2021,11/30/2020,11/09/2020 COVID-19, MRNA-LNP, 23-24, P F, 30 MCG/0.3 mL, 12 YRS AND ABOVE, IM ([facility]) 06/30/2023 Covid-19, Mrna, Lnp-s, Pf, B ivalent, 30 Mcg, IM, 12 yrs and above ([employer]) 06/20/2022 HEP A - Hepatitis A (Adult [...] cervical and hand function:right Workman compensation/ Litigation/ Application Development Specialist: Spine investigations done and date: Xray:11/25/2023 MRI:01/02/2024 [...] complications that need specialties not available at [facility] skin abrasions related to positioning and [...] This chart was completed in part utilizing [employer] Speech Voice Recognition Software. Grammatical errors, random [...] cervical and hand function:right Workman compensation/ Litigation/ Application Development Specialist: Spine investigations done and date: Xray:11/25/2023 MRI:01/02/2024 [...] 2:15 PM EDT Cardiac Studies Cardiac Studies, [address] [place] [address] 01/22/2024 3:00 PM EDT Imaging Rad[facility] [place] [address] 02/16/2024 8:00 AM EDT Office Visit Ophthalmology, [facility] [address] [facility] [place] [address] Brandt Washington, DO [address] [facility] [place] [address] 02/26/2024 8:40 AM EDT NeuroDiagnostic Study Neurophysiology [facility] [address] [facility] [place] [address] Ralph Torrez, DO [address] [facility] [place] [address] 03/12/2024 8:30 AM EDT Office Visit Orthopaedics Spine Surgery, [place] [address] [place] [address] Kleber Batres MD [address] [place] [address] 09/06/2024 11:00 AM EST Office Visit [facility] [address] [place] [phone] Nisa Goodrich PA-C [address] [place] [facility] [address] Pending Results Name Type Priority Associated Diagnoses [...] Pre-op testing OBTAIN AUTOGRAFT FOR SPINE S ENEIDA MORSELIZED SEPARATE INCISION Cervical spine pain Cervical [...] unspecified documented in this encounter Advance Directives Latest Code Status on File Code Status Date Activated Date Inactivated Comments Full Code 07/05/2019 10:32 AM 07/05/2019 4:23 PM This order reflects the patients wishes and were consensually agreed upon. Care Teams Pump Stitcher Relationship Specialty Start Date End Date Alonso Daigle MD [address] [place] [address] PCP - General 08/28/01 documented as of this encounter
--- OUTSIDE RECORDS SUMMARY | 2024-02-11 23:22 | External Medical Summary | Summary of Care ---
Author Name Unknown Organization [facility] Address [address] [place] [address] Phone [phone] Care Team Providers Care Dianeticist Name Role Phone Alonso Daigle MD Primary Care Provider +1- [phone] Encounter Details Date Type Department Care Team (Late st Contact Info) Description 09/04/2023 Telephone [facility] [address] [place] [address] Alonso Daigle MD [address] [place] [address] Allergies No known active allergiesdocumented as of this encounter (statuses as of 12/04/2023) Medications Medication Sig Dispensed Refills Start Date End Date Status ASPIRIN 81 MG OR TABS one tab by mouth daily 0 0 5 Active ONE DAILY MENS PO TABS 1 daily 0 6 Active FISH OIL 1000 MG PO CPDR 1 Daily 1 Cap 0 2 Active Magnesium 250 MG Tablet Take 1 Tablet by mouth in the morning. 0 9 Active Potassium Gluconate 550 MG TABS Take by mouth. 0 9 Active Diclofenac Sodium (VOLTAREN) 1 % gel Place 1 g topically on the skin 4 times a day. 3 Tube 1 0 Active Fexofenadine HCl 180 MG Oral Tablet (Amairani)Indica tions:Chronic rhinitis Take 1 Tab by mouth daily. 90 Tab 3 1 Active Atorvastatin Calcium 80 MG Oral Tablet (Lipitor) TAKE ONE TABLET BY MOUTH EVERY DAY 90 Tablet 3 3 12/22/19 24 Active Lisinopril 20 MG Oral Tablet (Prinivil)Indic ations:HTN, goal below 140/90 TAKE ONE TABLET BY MOUTH EVERY DAY 90 Tablet 3 3 12/22/19 24 Active Fluticasone Propionate 50 MCG/ACT Nasal Suspension (Flonase) ADMINISTER 2 SPRAYS INTO EACH NOSTRIL DAILY IN THE MORNING 48 g 3 3 12/22/19 24 Active Benzonatate 100 MG Oral Capsule (Tessalon Perles)Indicati ons:COVID-19 Take 1 Capsule by mouth 3 times a day as needed for Cough. Do not cut, crush, or chew. 50 Capsule 1 3 Active metFORMIN HCl 500 MG Oral Tablet (Glucophage) TAKE ONE TABLET BY MOUTH TWICE A DAY WITH MORNING AND EVENING MEALS 180 Tablet 2 3 09/16/19 24 Discontinued(Ref ill) Nirmatrelvir&Ri tonavir 300/100 20 x 150 MG & 10 x 100MG Oral Tablet Therapy Pack (Paxlovid (300/100))Indic ations:COVID-19 Take 2 pink tablets of Nirmatrelvir and 1 white tablet of Ritonavir two times a day by mouth. 30 Tablet 0 3 11/17/19 24 Discontinued Montelukast Sodium 10 MG Oral Tablet (Singulair)Alta cations:COVID-1 9 Take 1 Tablet by mouth in the morning. 30 Tablet 0 3 09/22/19 24 Discontinued(Ref ill) documented as of this encounter (statuses as of 12/04/2023) Active Problems Problem Noted Date Diagnosed Date Primary osteoarthritis of left knee 05/05/2020 HTN, goal below 140/90 11/08/2014 Type 2 diabetes mellitus wit h hemoglobin A1c goal of less than 7.0% 12/05/2011 Overview: ICD-10 update of inactive term Dyslipidemia, goal LDL below 100 12/05/2011 Generalized osteoarthritis 04/06/2010 documented as of this encounter (statuses as of 12/04/2023) Resolved Problems Problem Noted Date Diagnosed Date [...] as of this encounter (statuses as of 12/04/2023) Immunizations Name Administration Dates Next Due COVID-19 mRNA, LNP-s, No Pre serve, 2-Dose Series ([employer]) 07/30/2021,11/30/2020,11/09/2020 COVID-19, MRNA-LNP, 23-24, P F, 30 MCG/0.3 mL, 12 YRS AND ABOVE, IM ([employer]Comirnat[employer]) 06/30/2023 Covid-19, Mrna, Lnp-s, Pf, B ivalent, [...] encounter Miscellaneous Notes * Telephone Encounter - JaElba bob CCMA - 09/04/2023 11:34 AM EST Called pt . He states that he was in and picked up a work excuse. documented in this encounter Plan of Treatment Upcoming Encounters Date Type Department Care Team (Late st Contact Info) Description 12/30/2023 8:30 AM EDT Office Visit Orthopaedics [facility] [address] [place] [address] Kathy Chase MD [address] [facility] [place] [address] 01/16/2024 7:40 AM EDT Laboratory Laboratory, [place] [address] [place] [facility] [place] [phone] [place] [facility] [address] [place] [address] 02/16/2024 8:00 AM EDT Office Visit Ophthalmology, [facility] [address] [facility] [place] [place] [address] Brandt Washington, DO [address] [place] [address] 09/06/2024 11:00 AM EST Office Visit Family [facility], [place] [address] [place] [facility] [place] [phone] Nisa Goodrich PA-C [address] [place], [place] [phone] Scheduled Procedures Name Priority Associated Diagnoses Date/Ti [...] and were consensually agreed upon. Care Teams Dianeticist Relationship Specialty Start Date End Date Alonso Daigle MD [address] [place] [address] PCP - General 08/28/01 documented as of this encounter
--- OUTSIDE RECORDS SUMMARY | 2024-02-11 23:23 | External Medical Summary | Summary of Care ---
Author Name Unknown Organization [facility] Address [address] [place] [address] Phone [phone] Care Team Providers Care Soda Room Operator Name Role Phone Alonso Daigle MD Primary Care Provider +1- [phone] Reason for Visit * Reason Comments Medication Refill Encounter Details Date Type Department Care Team ([facility] st Contact Info) Description 09/16/2023 Refill [facility] [address] [place] [address] Alonso Daigle MD [address] [place] [address] Encounter for long-term (current) use of medications* Allergies No known active allergiesdocumented as of this encounter (statuses as of 10/07/2023) Medications Medication Sig Dispensed Refills Start Date [...] MOUTH EVERY DAY 90 Tablet 3 11/27/2022 4 Active Lisinopril 20 MG Oral Tablet (Prinivil)Indica tions:HTN, goal below 140/90 TAKE ONE TABLET BY MOUTH EVERY DAY 90 Tablet 3 11/27/2022 4 Active Fluticasone Propionate 50 MCG/ACT Nasal Suspension (Flonase) ADMINISTER 2 SPRAYS INTO EACH NOSTRIL DAILY IN THE MORNING 48 g 3 11/17/2022 4 Active Nirmatrelvir&Rit onavir 300/100 20 x 150 MG & 10 x 100MG Oral Tablet Therapy Pack (Paxlovid (300/100))Indica tions:COVID-19 Take 2 pink tablets of Nirmatrelvir and 1 white tablet of Ritonavir two times a day by mouth. 30 Tablet 0 08/27/2023 Active Benzonatate 100 MG Oral Capsule (Tessalxenia Stephens)Indicatio ns:COVID-19 Take 1 Capsule by mouth 3 times a day as needed for Cough. Do not cut, crush, or chew. 50 Capsule 1 08/28/2023 Active metFORMIN HCl 500 MG Oral Tablet (Glucophage) TAKE ONE TABLET BY MOUTH TWICE A DAY WITH MORNING AND EVENING MEALS 180 Tablet 0 09/17/2023 Active metFORMIN HCl 500 MG Oral Tablet (Glucophage) TAKE ONE TABLET BY MOUTH TWICE A DAY WITH MORNING AND EVENING MEALS 180 Tablet 2 11/26/2022 4 Discontinue d(Refill) Montelukast Sodium 10 MG Oral Tablet (Singulair)Indic ations:COVID-19 Take 1 Tablet by mouth in the morning. 30 Tablet 0 08/28/2023 4 Discontinue d(Refill) documented as of this encounter (statuses as of 10/07/2023) Active Problems Problem Noted Date Diagnosed Date Primary osteoarthritis of left knee 05/05/2020 HTN, goal below 140/90 11/08/2014 Type 2 diabetes mellitus wit h hemoglobin A1c goal of less than 7.0% 12/05/2011 Overview: ICD-10 update of inactive term Dyslipidemia, goal LDL below 100 12/05/2011 Generalized osteoarthritis 04/06/2010 documented as of this encounter (statuses as of 10/07/2023) Resolved Problems Problem Noted Date Diagnosed Date [...] as of this encounter (statuses as of 10/07/2023) Immunizations Name Administration Dates Next Due COVID-19 mRNA, LNP-s, No Pre serve, 2-Dose Series ([employer]) 07/30/2021,11/30/2020,11/09/2020 COVID-19, MRNA-LNP, 23-24, P F, 30 MCG/0.3 mL, 12 YRS AND ABOVE, IM ([facility]) 06/30/2023 Covid-19, Mrna, Lnp-s, Pf, B [...] Date Smoking Tobacco: Former Cigarettes 1 30 Q uit: 07/26/2002 Passive Smoke Exposure: Never Smokeless Tobacco: [...] encounter Miscellaneous Notes * Telephone Encounter - Louie Fritz - 10/07/2023 9:44 PM EST Received message from [facility] regarding patient needing labs. Patient was notified. Successfully contacted patient and provided [facility] message. * Telephone Encounter - Paul Rosales [facility] - 09/17/2023 9:03 AM ESTSigned Prescriptions: Disp Refills metFORMIN HCl 500 MG Oral Tablet (Glucopha*180 Ta*0 Sig: TAKE ONE TABLET BY MOUTH TWICE A DAY WITH MORNING AND EVENING MEALSAuthorizing Provider: NISA GOODRICH User: PAUL ROSALES * Telephone Encounter - Paul Rosales [facility] - 09/17/2023 9:01 AM EST Provided 90 days supply with 0 refill(s) until upcoming appointment. Per refill protocol patient should have A1c, GFR and lipid panel on file within past year. Reviewed AMP report, Care Gaps/Health Maintenance, medications list, and for any routine labs typically ordered for this patient. Lab orders placed. Please contact patient to advise of labs ordered for blood draw AND URINE specimen (patient will have to be able to void to provide sample). Recommend patient to fast if able for labs. Patient may still have water and regular medications. Advise to obtain labs before requesting the next refill. Thanks, Paul Rosales, PharmD Clinical Pharmacist [facility] ([facility]) [phone] 09/17/2023 9:02 AM documented in this encounter Plan of Treatment Upcoming Encounters Date Type Department Care Team (Late st Contact Info) Description 09/06/2024 11:00 AM EST Office Visit [facility] [address] [facility] [place] [phone] Nisa Goodrich PA-C [address] [facility] [place] [id number] Scheduled Orders Name Type Priority Associated Diagnoses Orde r Schedule COMPREHENSIVE METABOLIC PANEL Lab Routine Encounter for long-term (current) use of medications Expected: 09/17/2023 (Approximate), Expires: 09/17/2024 LIPID PANEL WITH DIRECT LDL IF TG IS HIGH Lab Routine Encounter for long-term (current) use of medications Expected: 09/17/2023 (Approximate), Expires: 09/17/2024 Scheduled Procedures Name Priority Associated Diagnoses Date/Ti me COLONOSCOPY FLEXIBLE PROXIMA L DIAGNOSTIC Recall Encounter for screening colonoscopy Health Maintenance Due Date Last Done Comments Hepatitis C Screening 1974 Cologuard 2001 Fecal Occult Blood Test 2001 Sigmoidoscopy 2001 Depression Screening 05/05/2021 05/05/2020 Diabetic Eye Exam 09/08/2021 09/08/2020, , 12/05/2011 Pneumococcal Vaccine: 65+ Years (2 - PCV) 07/30/2022 07/30/2021, 09/12/2011 HbA1c 03/12/2023 09/12/2022, 090 05/2022, 09/24/2021, Additional history exists Albumin/Creatinine Ratio 05/10/2023 022, 09/24/2021, 02/09/2021, Additional history exists B-12 05/10/2023 05/10/2022, 01/30, 05/05/2020, Additional history exists GFR 09/12/2023 09/12/2022, 09/0 05/2022, 09/24/2021, Additional history exists Diabetic Foot Exam 09/03/2024 09/03/2023, 0 02/09/2021, 10/05/2018, Additional history exists Lipid Panel 05/10/2027 05/10/2022, 05/2022, 09/24/2021, Additional history exists Colonoscopy 05/07/2028 05/07/2018, 01/2018, 01/13/2007 Colorectal Cancer Screening 05/07/2028 DTaP,Tdap,and Td Vaccines (4 - Td or [...] Diagnosis Encounter for long-term (current) use of medications- Primary Encounter for long-term (current) use of other medications documented in this encounter Advance Directives Latest Code Status on File Code Status Date Activated Date Inactivated Comments Full Code 07/05/2019 10:32 AM 07/05/2019 4:23 PM This order reflects the patients wishes and were consensually agreed upon. Care Teams Soda Room Operator Relationship Specialty Start Date End Date Alonso Daigle MD [address] [place] [facility] [place] [id number] PCP - General 08/28/01 documented as of this encounter
--- OUTSIDE RECORDS SUMMARY | 2024-02-11 23:23 | External Medical Summary | Summary of Care ---
Author Name Unknown Organization [facility] Address [address] [place] [address] Phone [phone] Care Team Providers Care Special Education Inclusion Teacher Name Role Phone Alonso Daigle MD Primary Care Provider +1- [phone] Reason for Visit * Reason Comments Outpatient Testing Encounter Details Date Type Department Care Team (Late st Contact Info) Description 10/08/2023 9:10 AM EST Laboratory Laboratory, [place] [address] [place] [address] [place], Laboratory [address] [place] [address] Type 2 diabetes mellitus with hemoglobin A1c goal of less than 7.0% ([facility]); On extermination inspector drug therapy; Screening for nephropathy; Encounter for long-term (current) use of medications Allergies No known active allergiesdocumented as of this encounter (statuses as of 10/08/2023) Medications Medication Sig Dispensed Refills Start Date [...] 12/22/2023 Active Lisinopril 20 MG Oral Tablet (Prinivil)Indicat ions:HTN, goal below 140/90 TAKE ONE TABLET BY MOUTH EVERY DAY 90 Tablet 3 11/27/2022 12/22/2023 Active Fluticasone Propionate 50 MCG/ACT Nasal Suspension (Flonase) ADMINISTER 2 SPRAYS INTO EACH NOSTRIL DAILY IN THE MORNING 48 g 3 11/17/2022 12/22/2023 Active Nirmatrelvir&Ari navir 300/100 20 x 150 MG & 10 x 100MG Oral Tablet Therapy Pack (Paxlovid (300/100))Indicat ions:COVID-19 Take 2 pink tablets of Nirmatrelvir and 1 white tablet of Ritonavir two times a day by mouth. 30 Tablet 0 08/27/2023 Active Benzonatate 100 MG Oral Capsule (Tessalon Perles)Indication s:COVID-19 Take 1 Capsule by mouth 3 times a day as needed for Cough. Do not cut, crush, or chew. 50 Capsule 1 08/28/2023 Active metFORMIN HCl 500 MG Oral Tablet (Glucophage) TAKE ONE TABLET BY MOUTH TWICE A DAY WITH MORNING AND EVENING MEALS 180 Tablet 0 09/17/2023 Active Montelukast Sodium 10 MG Oral Tablet (Singulair)Indica tions:COVID-19 Take 1 Tablet by mouth in the morning. 90 Tablet 3 09/22/2023 Active documented as of this encounter (statuses as of 10/08/2023) Active Problems Problem Noted Date Diagnosed Date Primary osteoarthritis of left knee 05/05/2020 HTN, goal below 140/90 11/08/2014 Type 2 diabetes mellitus wit h hemoglobin A1c goal of less than 7.0% 12/05/2011 Overview: ICD-10 update of inactive term Dyslipidemia, goal LDL below 100 12/05/2011 Generalized osteoarthritis 04/06/2010 documented as of this encounter (statuses as of 10/08/2023) Resolved Problems Problem Noted Date Diagnosed Date [...] as of this encounter (statuses as of 10/08/2023) Immunizations Name Administration Dates Next Due COVID-19 mRNA, LNP-s, No Pre serve, 2-Dose Series ([employer]) 07/30/2021,11/30/2020,11/09/2020 COVID-19, MRNA-LNP, 23-24, P F, 30 [...] Description 09/06/2024 11:00 AM EST Office Visit [facility], [place] [address] [facility], [place] [place] [phone] Nisa Goodrich PA-C [address] [facility] [place] [place] [address] Pending Results Name Type Priority Associated Diagnoses Date /Time HEMOGLOBIN A1C Lab Routine Type 2 diabetes mellitus with hemoglobin A1c goal of less than 7.0% ([facility]) 10/08/2023 9:11 AM EST VITAMIN B12 Lab Routine On extermination inspector drug therapy 10/08/2023 9:11 AM EST ALBUMIN / CREATININE RATIO, URINE Lab Routine Screening for nephropathy 10/08/2023 9:11 AM EST COMPREHENSIVE METABOLIC PANEL Lab Routine Encounter for long-term (current) use of medications 10/08/2023 9:11 AM EST LIPID PANEL WITH DIRECT LDL IF TG IS HIGH Lab Routine Encounter for long-term (current) use of medications 10/08/2023 9:11 AM EST Scheduled Procedures Name Priority Associated Diagnoses Date/Ti [...] A1c goal of less than 7.0% (HCC) On residential drug therapy Screening for nephropathy Encounter for long-term (current) use of medications Encounter for long-term (current) use of other medications documented in this encounter Advance Directives Latest Code Status on File Code Status Date Activated Date Inactivated Comments Full Code 07/05/2019 10:32 AM 07/05/2019 4:23 PM This order reflects the patients wishes and were consensually agreed upon. Care Teams Special Education Inclusion Teacher Relationship Specialty Start Date End Date Alonso Daigle MD [address] [place] [address] PCP - General 08/28/01 documented as of this encounter
--- OUTSIDE RECORDS SUMMARY | 2024-02-11 23:23 | External Medical Summary | Summary of Care ---
Author Name Unknown Organization [facility] Address [address] [facility] [address] Phone [phone] Care Team Providers Care Booth Operator Name Role Phone Alonso Dailge MD Primary Care Provider +1- [phone] Encounter Details Date Type Department Care Team (Late st Contact Info) Description 08/28/2023 8:40 AM EST [facility] ([facility] [address] [place] [address] Nisa Goodrich PA-C [address] [place] [address] COVID-19*; Dyslipidemia, goal LDL below 100 Allergies No known active allergiesdocumented as of this encounter (statuses as of 08/28/2023) Medications Medication Sig Dispensed Refills Start Date [...] MOUTH EVERY DAY 90 Tablet 3 11/27/2022 11/27/2023 Active Lisinopril 20 MG Oral Tablet (Prinivil)Indicat ions:HTN, goal below 140/90 TAKE ONE TABLET BY MOUTH EVERY DAY 90 Tablet 3 11/27/2022 11/27/2023 Active metFORMIN HCl 500 MG Oral Tablet (Glucophage) TAKE ONE TABLET BY MOUTH TWICE A DAY WITH MORNING AND EVENING MEALS 180 Tablet 2 11/26/2022 11/26/2023 Active Fluticasone Propionate 50 MCG/ACT Nasal Suspension (Flonase) ADMINISTER 2 SPRAYS INTO EACH NOSTRIL DAILY IN THE MORNING 48 g 3 11/17/2022 11/17/2023 Active Nirmatrelvir&Ari navir 300/100 20 x 150 MG & 10 x 100MG Oral Tablet Therapy Pack (Paxlovid (300/100))Indicat ions:COVID-19 Take 2 pink tablets of Nirmatrelvir and 1 white tablet of Ritonavir two times a day by mouth. 30 Tablet 0 08/27/2023 Active Montelukast Sodium 10 MG Oral Tablet (Singulair)Indica tions:COVID-19 Take 1 Tablet by mouth in the morning. 30 Tablet 0 08/28/2023 Active Benzonatate 100 MG Oral Capsule (Tessalon Perles)Indication s:COVID-19 Take 1 Capsule by mouth 3 times a day as needed for Cough. Do not cut, crush, or chew. 50 Capsule 1 08/28/2023 Active COVID-19 Test In Vitro KitIndications:CO VID-19 Test 1 Each as directed once for 1 dose. 3 Kit 1 08/28/2023 08/28/2023 Active documented as of this encounter (statuses as of 08/28/2023) Active Problems Problem Noted Date Diagnosed Date Primary osteoarthritis of left knee 05/05/2020 HTN, goal below 140/90 11/08/2014 Type 2 diabetes mellitus wit h hemoglobin A1c goal of less than 7.0% 12/05/2011 Overview: ICD-10 update of inactive term Dyslipidemia, goal LDL below 100 12/05/2011 Generalized osteoarthritis 04/06/2010 BMI 35-39 ISOLATED (SEE ACTUAL BMI) 02/12/2010 Overview: Per Obesity Protocol, #19 documented as of this encounter (statuses as of 08/28/2023) Resolved Problems Problem Noted Date Diagnosed Date Resolved Date HTN, goal below 130/80 08/21/201211/08 HTN, goal below 140/80 04/20/201208/21 Overview: Per HTN Protocol #27. HTN, goal below 130/80 12/05/201104/23 Overview: Per HTN Protocol #27. Secondary diabetes mellitus without mention of complication, not stated as uncontrolled, or unspecified 09/12/2011 12/05/2011 VIRAL INFLUENZA-LIKE ILLNESS 08/08/2009 12/05/2011 DIZZINESS 08/08/2009 [...] as of this encounter (statuses as of 08/28/2023) Immunizations Name Administration Dates Next Due COVID-19 mRNA, LNP-s, No Pre serve, 2-Dose Series ([employer]) 07/30/2021,11/30/2020,11/09/2020 COVID-19, MRNA-LNP, 23-24, P F, 30 MCG/0.3 mL, 12 YRS AND ABOVE, [facility] ([facility] 06/30/2023 Covid-19, Mrna, Lnp-s, Pf, B ivalent, [...] Former Cigarettes 1 30 Q uit: 07/26/2002 Smokeless Tobacco: Never Comments:30 pack year histor [...] as of this encounter Progress Notes * Nisa Goodrich PA-C - 08/28/2023 8:39 AM EST Images from the original note were not included. History of Present Illness Almas Pack is a 67 year old male that presents for No chief complaint on file. Due to COVID 19 pandemic, this visit was done via video. Patient is established with the practice. Last face to face visit was 08/04/2023. Call start time: 0840 Patient location: HOME. I was in a hospital or clinic location. After connecting through televideo,patient was verified with two unique identifiers. Patient (or authorized legal charter representative) was then informed that this was a Telemedicine visit and being conducted confidentially over secure lines. Methods to assure confidentiality were taken. Patient acknowledged consent and understanding of pr ivacy and security of the Telemedicine visit. The patient agreed to participate. Has covid Tested positive at home Symptoms started 6 days ago Called in medicine last night - janell thompson aware to hold statin Tempt this morning is 98.7 + nasal congestion No n/v/d Cough is deep in lungs Some chest discomfort with this In his R lower back he has some pain when he coughs No pain there when he breathes All in all he is not feeling terrible Using flonase Physical Exam There were no vitals filed for this visit. BP Readings from Last 3 Encounters: 08/04/23 138/70 08/01/23 134/70 09/12/22 128/70 Wt Readings from Last 3 Encounters: 08/04/23 111.9 kg (246 lb 12.8 oz) 09/12/22 116.1 kg (256 lb) 05/10/22 108 kg (238 lb 3.2 oz) BMI Readings from Last 3 Encounters: 08/04/23 37.53 kg/m 09/12/22 38.92 kg/m 05/10/22 36.22 kg/m Ht Readings from Last 3 Encounters: 08/04/23 1.727 m (5' 8") 09/12/22 1.727 m (5' 8") 05/10/22 1.727 m (5' 8") Assessment and Plan COVID-19 (Primary) - Montelukast Sodium 10 MG Oral Tablet (Singulair); Take 1 Tablet by mouth in the morning. - Benzonatate 100 MG Oral Capsule (Tessalon Perles); Take 1 Capsule by mouth 3 times a day as needed for Cough. Do not cut, crush, or chew. - COVID-19 Test In Vitro Kit; Test 1 Each as directed once for 1 dose. Dyslipidemia, goal LDL below 100 Advised to hold statin while on on paxlovid Discussion with patient of risk and benefit of medication. also discussion of common side affects. patient counseled and is aware and wishes to purse this medication, agrees to call with any issues or concerns. comfort care measures discussed saline nasal spray with bulb syringe plenty of fluids Tylenol per dosing recommendations for low grade fever humidifier Discussed the likely viral etiology of the patients symptoms. It was explained that antibiotics will have no effect on viral illnesses and that treatment is supportive in nature. Wrap-Up Time: I spent a total of 10-19 minutes (exact time 10 mins) on the date of service in preparation, delivery, and documentation of the care provided to Almas Pack excluding any time spent in the performance of separately billed services. Nisa Goodrich PA-C 08/28/2023 8:46 AM documented in this encounter Plan of Treatment Upcoming Encounters Date Type Department Care Team (Late st Contact Info) Description 09/03/2023 7:40 AM EST Office Visit [facility] [address] [place] [phone] Nisa Goodrich PA-C [address] [place] [address] Scheduled Procedures Name Priority Associated Diagnoses Date/Ti me COLONOSCOPY FLEXIBLE PROXIMA L DIAGNOSTIC Recall Encounter for screening colonoscopy Health Maintenance Due Date Last Done Comments Hepatitis C Screening 1974 Cologuard 2001 Fecal Occult Blood Test 2001 Sigmoidoscopy 2001 Depression Screening 05/05/2021 05/05/2020 Diabetic Eye Exam 09/08/2021 09/08/2020, , 12/05/2011 Diabetic Foot Exam 02/09/2022 02/09/2021, 0 10/05/2018, 01/23/2017, Additional history exists Pneumococcal Vaccine: 65+ Years (2 - PCV) 07/30/2022 07/30/2021, 09/12/2011 HbA1c 03/12/2023 09/12/2022, 0 05/2022, 09/24/2021, Additional history exists Albumin/Creatinine Ratio 05/10/2023 022, 09/24/2021, 02/09/2021, Additional history exists B-12 05/10/2023 05/10/2022, 01/30, 05/05/2020, Additional history exists GFR 09/12/2023 09/12/2022, 0 05/2022, 09/24/2021, Additional history exists Lipid Panel 05/10/2027 05/10/2022, 0 05/2022, 09/24/2021, Additional history exists Colonoscopy 05/07/2028 05/07/2018, 0 01/2018, 01/13/2007 Colorectal Cancer Screening 05/07/2028 DTaP,Tdap,and [...] as of this encounter Visit Diagnoses Diagnosis COVID-19- Primary Dyslipidemia, goal LDL below 100 Other and unspecified hyperlipidemia documented in this encounter Advance Directives Latest Code Status on File Code Status Date Activated Date Inactivated Comments Full Code 07/05/2019 10:32 AM 07/05/2019 4:23 PM This order reflects the patients wishes and were consensually agreed upon. Care Teams Booth Operator Relationship Specialty Start Date End Date Alonso Daigle MD [address] [place] [facility] [place] [address] PCP - General 08/28/01 documented as of this encounter
--- OUTSIDE RECORDS SUMMARY | 2024-02-11 23:23 | External Medical Summary ---
Author Name Unknown Address Unknown Organization [id number]:[facility] [place] [address] [place] [address] [place] [address] Laboratory Report Ordering Provider Test Date Status DELMIS MILLER 10/08/2023 09:11:02 Final Observation Date Value Abnormality Reference (Units ) Status Triglyceride 10/08/2023 09:11:02 222 Above high normal <=174 (mg/dL) Final Triglyceride Reference Range s (mg/dL):
<150 Acceptable
150-174 Borderline high
175-499 High
>=500 Very high Cholesterol 10/08/2023 09:11:02 154 <200 (mg /dL) Final Total Cholesterol Reference Ranges (mg/dL):
<200 Desirable
200-239 Borderline high
>=240 High HDL 10/08/2023 09:11:02 32 Below low normal >39 (mg/dL) Final HDL Cholesterol Reference Ra nges (mg/dL):
>=60 High (Desirable)
<50 Low (Undesirable) For Females
<40 Low (Undesirable) For Males NON-HDL CHOLESTEROL 10/08/2023 09:11:02 122 <=159 (mg/dL) Final Non-HDL Cholesterol Referenc e Range (mg/dL):
<100 Target level for high risk ASCVD patient
<130 Optimal for general population
130-159 Near optimal for general population
160-189 Borderline High
190-219 High
>=220 Very High Performing Location [facility] [place] [address] [place] [address]
--- OUTSIDE RECORDS SUMMARY | 2024-02-11 23:23 | External Medical Summary | Summary of Care ---
Author Name Unknown Organization [facility] Address [address] [place] [address] Phone [phone] Care Team Providers Care [place] Manager Name Role Phone Alonso Daigle MD Primary Care Provider +1- [phone] Reason for Visit * Reason Onset Date Comments Test Results Lab 10/10/2023 Encounter Details Date Type Department Care Team (Late st Contact Info) Description 10/10/2023 Telephone [facility] [address] [place] [address] Alonso Daigle MD [address] [place] [address] Test Results Lab Allergies No known active allergiesdocumented as of this encounter (statuses as of 10/17/2023) Medications Medication Sig Dispensed Refills Start Date [...] evening meals. 180 Tablet 3 10/17/2023 Active metFORMIN HCl 500 MG Oral Tablet (Glucophage) TAKE ONE TABLET BY MOUTH TWICE A DAY WITH MORNING AND EVENING MEALS 180 Tablet 0 09/17/2023 4 Discontinue d(Refill) documented as of this encounter (statuses as of 10/17/2023) Active Problems Problem Noted Date Diagnosed Date Primary osteoarthritis of left knee 05/05/2020 HTN, goal below 140/90 11/08/2014 Type 2 diabetes mellitus wit h hemoglobin A1c goal of less than 7.0% 12/05/2011 Overview: ICD-10 update of inactive term Dyslipidemia, goal LDL below 100 12/05/2011 Generalized osteoarthritis 04/06/2010 documented as of this encounter (statuses as of 10/17/2023) Resolved Problems Problem Noted Date Diagnosed Date [...] as of this encounter (statuses as of 10/17/2023) Immunizations Name Administration Dates Next Due COVID-19 mRNA, LNP-s, No Pre serve, 2-Dose Series ([employer]) 07/30/2021,11/30/2020,11/09/2020 COVID-19, MRNA-LNP, 23-24, P F, 30 MCG/0.3 mL, 12 YRS AND ABOVE, IM ([employer]Comirnat) 06/30/2023 Covid-19, Mrna, Lnp-s, Pf, B ivalent, [...] Notes * Telephone Encounter - Cynthia Rosales [facility] - 10/17/2023 11:07 AM EST Recommendation: Script pended. Patient is agreeable to dose adjustment. A1c increase to 7.8% - Metformin current dose is 500mg BID. Patient's goal A1c is < 7%. Recommend increasing metformin to target dose - 1000mg twice daily. Script pended. Discussed pt may taper with 2 500mg tabs AM and 1 PM x 1 week if preferred. Pt has 500mg tabs at home he can taper with. Recheck A1c in 3 months - lab appt scheduled. Pending Prescriptions: Disp Refills metFORMIN HCl 1000 MG Oral Tablet (Glucop*180 Ta*3 Sig: Take 1 Tablet by mouth 2 times a day with morning and evening meals. Thanks, Cynthia Rosales, PharmD Clinical Pharmacist [facility] ([facility]) [phone] 10/17/2023 11:11 AM * Telephone Encounter - Linda Ramirez CPhT - 10/17/2023 11:04 AM EST Pt returning call. Transferred caller to [facility] Thank you, Suzy Ramirez Senior Chemist I [facility] ([facility]) 10/17/2023,11:04 AM * Telephone Encounter - Cynthia Rosales [facility] - 10/16/2023 2:36 PM EST Unable to reach patient at this time. Left message on the answering machine requesting callback regarding metformin. Advised patient to please call [phone]. Please transfer him back to myself. If I'm not available, transfer to next available [facility]. Pharmacist please review: A1c increase to 7.8% - Metformin current dose is 500mg BID. Patient's goal A1c is < 7%. Recommend increasing metformin to target dose - 1000mg twice daily. PCP agreeable if pt is agreeable to doseincrease. Recheck A1c in 3 months Stable lipid panel, CMP, alb/cre ratio, and B12. Thanks, Cynthia Rosales PharmD Clinical Pharmacist [facility] ([facility]) [phone] 10/16/2023 2:36 PM * Telephone Encounter - Linda Messer LPN - 10/14/2023 8:19 AM EST MYG sent * Telephone Encounter - Alonso Daigle MD - 10/10/2023 4:45 PM EST Please see if pt interested in increase in metformin dose given hgba1c elevated at 7.8 * Telephone Encounter - Cynthia Rosales RPh - 10/10/2023 2:48 PM EST Recommendation- labs reviewed: Script pended. Please approve and route back if agreeable. A1c increase to 7.8% - Metformin current dose is 500mg BID. Patient's goal A1c is < 7%. Recommend increasing metformin to target dose - 1000mg twice daily. Script pended. Recheck A1c in 3 months Pending Prescriptions: Disp Refills metFORMIN HCl 1000 MG Oral Tablet (Glucop*180 Ta*3 Sig: Take 1 Tablet by mouth 2 times a day with morning and evening meals. Thanks, Cynthia Rosales PharmD Clinical Pharmacist [facility] ([facility]) [phone] 10/10/2023 2:50 PM documented in this encounter Plan of Treatment Upcoming Encounters Date Type Department Care Team (Late st Contact Info) Description 01/16/2024 7:40 AM EDT [facility], [place] [address] [facility] [address] Yolie [place] [address] [facility] [id number] 02/16/2024 8:00 AM EDT Office Visit Ophthalmology, [facility] [address] [facility] [place] [address] Brandt [place], DO [address] [facility] [address] 09/06/2024 11:00 AM EST Office Visit Family Practice, [place] [address] [facility] [place] [address] Nisa Goodrich PA-C [address] [facility] [place] [id number] Scheduled Procedures Name Priority Associated Diagnoses Date/Ti [...] and were consensually agreed upon. Care Teams [place] Manager Relationship Specialty Start Date End Date Alonso Daigle MD [address] [place] [address] PCP - General 08/28/01 documented as of this encounter
--- OUTSIDE RECORDS SUMMARY | 2024-02-11 23:23 | External Medical Summary | Summary of Care ---
Author Name Unknown Organization [facility] Address [address] [facility] [place] [address] Phone [phone] Care Team Providers Care Senior Specialist Name Role Phone Alonso Daigle MD Primary Care Provider +1- [phone] Encounter Details Date Type Department Care Team (Late st Contact Info) Description 09/18/2023 Orders Only PATIENT PORTAL DO NOT DELETE THIS DEPT USED BY [place] [id number] Allergies No known active allergiesdocumented as of this encounter (statuses as of 09/18/2023) Medications Medication Sig Dispensed Refills Start Date [...] EVENING MEALS 180 Tablet 0 09/17/2023 Active documented as of this encounter (statuses as of 09/18/2023) Active Problems Problem Noted Date Diagnosed Date Primary osteoarthritis of left knee 05/05/2020 HTN, goal below 140/90 11/08/2014 Type 2 diabetes mellitus wit h hemoglobin A1c goal of less than 7.0% 12/05/2011 Overview: ICD-10 update of inactive term Dyslipidemia, goal LDL below 100 12/05/2011 Generalized osteoarthritis 04/06/2010 documented as of this encounter (statuses as of 09/18/2023) Resolved Problems Problem Noted Date Diagnosed Date [...] as of this encounter (statuses as of 09/18/2023) Immunizations Name Administration Dates Next Due COVID-19 mRNA, LNP-s, No Pre serve, 2-Dose Series ([employer]) 07/30/2021,11/30/2020,11/09/2020 COVID-19, MRNA-LNP, 23-24, P F, 30 MCG/0.3 mL, 12 YRS AND ABOVE, IM ([employer]Comirnaty) 06/30/2023 Covid-19, Mrna, Lnp-s, Pf, B ivalent, [...] Description 09/06/2024 11:00 AM EST Office Visit [facility] [address] [facility] [address] Nisa Goodrich PA-C [address] [facility] [place] [address] Scheduled Procedures Name Priority Associated Diagnoses Date/Ti me COLONOSCOPY FLEXIBLE PROXIMA L DIAGNOSTIC Recall Encounter for screening colonoscopy Health Maintenance Due Date Last Done Comments Hepatitis C Screening 1974 Cologuard 2001 Fecal Occult Blood Test 2001 Sigmoidoscopy 2001 Depression Screening 05/05/2021 05/05/2020 Diabetic Eye Exam 09/08/2021 09/08/2020, , 12/05/2011 Pneumococcal Vaccine: 65+ Years (2 - PCV) 07/30/2022 07/30/2021, 09/12/2011 HbA1c 03/12/2023 09/12/2022, 09/0 05/2022, 09/24/2021, Additional history exists Albumin/Creatinine Ratio 05/10/2023 022, 09/24/2021, 02/09/2021, Additional history exists B-12 05/10/2023 05/10/2022, 01/30, 05/05/2020, Additional history exists GFR 09/12/2023 09/12/2022, 09/0 05/2022, 09/24/2021, Additional history exists Diabetic Foot Exam 09/03/2024 09/03/2023, 0 02/09/2021, 10/05/2018, Additional history exists Lipid Panel 05/10/2027 05/10/2022, 09/0 05/2022, 09/24/2021, Additional history exists Colonoscopy 05/07/2028 05/07/2018, 09/0 01/2018, 01/13/2007 Colorectal Cancer Screening 05/07/2028 DTaP,Tdap,and [...] and were consensually agreed upon. Care Teams Senior Specialist Relationship Specialty Start Date End Date Alonso Daigle MD [address] [place] [address] PCP - General 08/28/01 documented as of this encounter
--- OUTSIDE RECORDS SUMMARY | 2024-02-11 23:23 | External Medical Summary ---
Author Name Unknown Address Unknown Organization K01:[facility] [place] - [address] [facility] [address] Laboratory Report Ordering Provider Test Date Status HANNAH YOST 10/08/2023 09:11:02 Final Observation Date Value Abnormality Reference (Units ) Status HbA1C 10/08/2023 09:11:02 7.8 Above high normal 4. 0-5.6 (%) Final The use of HbA1c to monitor glycemic status is based on normal hemoglobin and HbA composition. This test should not be used in patients with abnormal hemoglobin that affects the half life of the red blood cell or the in vivo glycation rates. Glucose, estimated average 10/08/2023 09:11:02 177 Above high normal <126 (mg/dL) Clyde serrano Performing Location [facility] [place] - [address] [facility] [address]
--- OUTSIDE RECORDS SUMMARY | 2024-02-11 23:23 | External Medical Summary | Summary of Care ---
Author Name Unknown Organization [facility] Address [address] [place] [address] Phone [phone] Care Team Providers Care Fiscal Analyst Name Role Phone Priyank Daigle MD Primary Care Provider +1- [phone] Encounter Details Date Type Department Care Team (Late st Contact Info) Description 09/22/2023 Refill [facility] [address] [place] [address] Priyank Daigle MD [address] [place] [address] COVID-19 Allergies No known active allergiesdocumented as of this encounter (statuses as of 09/22/2023) Medications Medication Sig Dispensed Refills Start Date [...] Active Benzonatate 100 MG Oral Capsule (Tessalon Perlinge)Indicatio ns:COVID-19 Take 1 Capsule by mouth 3 [...] the morning. 90 Tablet 3 09/22/2023 Active Montelukast Sodium 10 MG Oral Tablet (Singulair)Indic ations:COVID-19 Take 1 Tablet by mouth in the morning. 30 Tablet 0 08/28/2023 4 Discontinue d(Refill) documented as of this encounter (statuses as of 09/22/2023) Active Problems Problem Noted Date Diagnosed Date Primary osteoarthritis of left knee 05/05/2020 HTN, goal below 140/90 11/08/2014 Type 2 diabetes mellitus wit h hemoglobin A1c goal of less than 7.0% 12/05/2011 Overview: ICD-10 update of inactive term Dyslipidemia, goal LDL below 100 12/05/2011 Generalized osteoarthritis 04/06/2010 documented as of this encounter (statuses as of 09/22/2023) Resolved Problems Problem Noted Date Diagnosed Date [...] as of this encounter (statuses as of 09/22/2023) Immunizations Name Administration Dates Next Due COVID-19 mRNA, LNP-s, No Pre serve, 2-Dose Series ([employer]) 07/30/2021,11/30/2020,11/09/2020 COVID-19, MRNA-LNP, 23-24, P F, 30 MCG/0.3 mL, 12 YRS AND ABOVE, IM ([facility] 06/30/2023 Covid-19, Mrna, Lnp-s, Pf, B [...] encounter Miscellaneous Notes * Telephone Encounter - Priyank Daigle MD - 09/22/2023 4:47 PM ESTSigned Prescriptions: Disp Refills Montelukast Sodium 10 MG Oral Tablet (Sing*90 Tab*3 Sig: Take 1 Tablet by mouth in the morning.Authorizing Provider: PRIYANK DAIGLE documented in this encounter Plan of Treatment Upcoming Encounters Date Type Department Care Team (Late st Contact Info) Description 09/06/2024 11:00 AM EST Office Visit [facility] [address] [place] [facility] [place] [address] Nisa Goodrich PA-C [address] [place] [address] Scheduled Procedures Name Priority Associated Diagnoses Date/Ti me COLONOSCOPY FLEXIBLE PROXIMA L DIAGNOSTIC Recall Encounter for screening colonoscopy Health Maintenance Due Date Last Done Comments Hepatitis C Screening 1974 Cologuard 2001 Fecal Occult Blood Test 2001 Sigmoidoscopy 2001 Depression Screening 05/05/2021 05/05/2020 Diabetic Eye Exam 09/08/2021 09/08/2020, , 12/05/2011 Pneumococcal Vaccine: 65+ Years (2 - PCV) 07/30/2022 07/30/2021, 09/12/2011 HbA1c 03/12/2023 09/12/2022, 0905/2022, 09/24/2021, Additional history exists Albumin/Creatinine Ratio 05/10/2023 022, 09/24/2021, 02/09/2021, Additional history exists B-12 05/10/2023 05/10/2022, 01/30, 05/05/2020, Additional history exists GFR 09/12/2023 09/12/2022, 0 05/2022, 09/24/2021, Additional history exists Diabetic Foot [...] as of this encounter Visit Diagnoses Diagnosis COVID-19 documented in this encounter Advance Directives Latest Code Status on File Code Status Date Activated Date Inactivated Comments Full Code 07/05/2019 10:32 AM 07/05/2019 4:23 PM This order reflects the patients wishes and were consensually agreed upon. Care Teams Fiscal Analyst Relationship Specialty Start Date End Date Priyakn Daigle MD [address] [place] [address] PCP - General 08/28/01 documented as of this encounter
--- OUTSIDE RECORDS SUMMARY | 2024-02-11 23:23 | External Medical Summary ---
Author Name Unknown Address Unknown Organization K01:[facility] [place] [address] [place] [address] Laboratory Report Ordering Provider Test Date Status PAUL,DELMIS 10/08/2023 09:11:02 Final Observation Date Value Abnormality Reference (Units ) Status LDL, (direct) 10/08/2023 09:11:02 89 <=129 (mg/dL) Final LDL Cholesterol Reference Ra nges (mg/dL):
<70 Target level for high risk ASCVD patient
<100 Optimal for general population
100-129 Near optimal for general population
130-159 Borderline high
160-189 High
>=190 Very high Performing Location [facility] - [address] [place] [address]
--- OUTSIDE RECORDS SUMMARY | 2024-02-11 23:23 | External Medical Summary | Summary of Care ---
Author Name Unknown Organization [facility] Address [address] [place] [address] Phone [phone] Care Team Providers Care Fur Examiner Name Role Phone Alonso Young MD Primary Care Provider +1- [phone] Reason for Visit * Reason Onset Date Comments Test Results Lab 10/10/2023 Encounter Details Date Type Department Care Team (Late st Contact Info) Description 10/10/2023 Telephone [facility] [address] [place] [address] Alonso Young MD [address] [place] [address] Test Results Lab Allergies No known active allergiesdocumented as of this encounter (statuses as of 10/20/2023) Medications Medication Sig Dispensed Refills Start Date [...] as of this encounter (statuses as of 10/20/2023) Active Problems Problem Noted Date Diagnosed Date Primary osteoarthritis of left knee 05/05/2020 HTN, goal below 140/90 11/08/2014 Type 2 diabetes mellitus wit h hemoglobin A1c goal of less than 7.0% 12/05/2011 Overview: ICD-10 update of inactive term Dyslipidemia, goal LDL below 100 12/05/2011 Generalized osteoarthritis 04/06/2010 documented as of this encounter (statuses as of 10/20/2023) Resolved Problems Problem Noted Date Diagnosed Date [...] as of this encounter (statuses as of 10/20/2023) Immunizations Name Administration Dates Next Due COVID-19 mRNA, LNP-s, No Pre serve, 2-Dose Series ([employer]!) 07/30/2021,11/30/2020,11/09/2020 COVID-19, MRNA-LNP, 23-24, P F, 30 MCG/0.3 mL, 12 YRS AND ABOVE, IM (Comfy-Comirnat) 06/30/2023 Covid-19, Mrna, Lnp-s, Pf, B ivalent, [...] Influenza, Split, I IV3, With Preserve, Inj 06/22/2014,06/09/2013,06/26/2012,06/01,05/29/2009,08/05/2005 TD - Tetanus/Diptheria (ADULT) 10/13/2003 TDAP (age 10 and older)(Boostrix) 04/09/2019 TDAP [...] as of this encounter Miscellaneous Notes * Addendum Note - Paul Rosales RPh - 10/20/2023 3:00 PM ESTAddended by: PAUL ROSALES on: 10/20/2023 03:00 PM Modules accepted: Orders * Telephone Encounter - Linda Messer LPN - 10/20/2023 8:17 AM ESTSigned Prescriptions: Disp Refills metFORMIN HCl 1000 MG Oral Tablet (Glucoph*180 Ta*3 Sig: Take 1 Tablet by mouth 2 times a day with morning and evening meals.Authorizing Provider: ALONSO YOUNG R * Telephone Encounter - Paul Rosales RPh - 10/17/2023 11:07 AM EST Recommendation: Script [...] day with morning and evening meals. Thanks, Paul Rosales, PharmD Clinical Pharmacist [facility] [phone] 10/17/2023 11:11 AM * Telephone Encounter - Linda Ramirez CPhT - 10/17/2023 11:04 AM EST Pt returning call. Transferred caller to [facility] Thank you, Suzy Ramirez Tipple Mechanic I [facility] Pharm[facility] (Former[facility]pharm[facility]) 10/17/2023,11:04 AM * Telephone Encounter - Paul Rosales [facility] - 10/16/2023 2:36 PM EST Unable to reach patient at this time. Left message on the answering machine requesting callback regarding metformin. Advised patient to please call [phone]. Please transfer him back to myself. If I'm not available, transfer to next available [facility]. Pharmacist please review: A1c increase to 7.8% - Metformin current dose is 500mg BID. Patient's goal A1c is < 7%. Recommend increasing metformin to target dose - 1000mg twice daily. PCP agreeable if pt is agreeable to doseincrease. Recheck A1c in 3 months Stable lipid panel, CMP, alb/cre ratio, and B12. Thanks, Paul Rosales, PharmD Clinical Pharmacist [facility] ([facility] - [facility]) [phone] 10/16/2023 2:36 PM * Telephone Encounter - Linda Messer LPN - 10/14/2023 8:19 AM EST MYG sent * Telephone Encounter - Alonso Young MD - 10/10/2023 4:45 PM EST Please see if pt interested in increase in metformin dose given hgba1c elevated at 7.8 * Telephone Encounter - Paul Rosales RPh - 10/10/2023 2:48 PM EST [...] day with morning and evening meals. Thanks, Paul Rosales, PharmD Clinical Pharmacist [facility] ([facility]) [phone] 10/10/2023 2:50 PM documented in this encounter Plan of Treatment Upcoming Encounters Date Type Department Care Team (Late st Contact Info) Description 01/16/2024 7:40 AM EDT Laboratory Laboratory, [address] [phone] [facility] [address] [place], [place] [phone] 02/16/2024 8:00 AM EDT Office Visit Ophthalmology, [address] [place] [address] Brandt Washington, DO [address] [place] [address] 09/06/2024 11:00 AM EST Office Visit Family Practice, [place] [address] [place] [phone] Nisa Goodrich PABrinaC [address] [place] [address] Scheduled Orders Name Type Priority Associated Diagnoses Orde r Schedule HEMOGLOBIN A1C Lab Routine Encounter for long-term (current) use of medications Expected: 01/18/2024 (Approximate), Expires: 10/20/2024 Scheduled Procedures Name Priority Associated Diagnoses Date/Ti [...] and were consensually agreed upon. Care Teams Fur Examiner Relationship Specialty Start Date End Date Alonso Young MD [address] [place] [address] PCP - General 08/28/01 documented as of this encounter
--- OUTSIDE RECORDS SUMMARY | 2024-02-11 23:23 | External Medical Summary | Summary of Care ---
Author Name Unknown Organization [facility] Address [address] [place] [address] Phone [phone] Care Team Providers Care Distribution Center Associate Name Role Phone Alonso Daigle MD Primary Care Provider +1- [phone] Reason for Referral * Evaluate & Treat - Unlimited Visits (Within 10 days (routine)) - Authorized Specialty Diagnoses / Procedures Referred By Delbert stephen Referred To Contact Ophthalmology Diagnoses Droopy eyelid Hyun Hooker, OD [address] [place] [address] Referral ID Status Reason Start Date Expiration Date Visits Requested Visits Authorized [id number] Authorized Specialty Services Required 10/14/2023 999 999 Question Answer Referral Priority Within 10 days (routine) Where should this appointment be scheduled? [facility] Referring for: Ophthalmology Conditions Ophthalmology Conditions Lids/Orbit Specific Condition Droopy lids Encounter Details Date Type Department Care Team (Late st Contact Info) Description 10/14/2023 Orders Only Access Center, [place] [address] [facility] *DO NOT REMOVE THIS DEPARTMENT* [place] [address] Request, External Referral Droopy eyelid* Allergies No known active allergiesdocumented as of this encounter (statuses as of 10/14/2023) Medications Medication Sig Dispensed Refills Start Date [...] as of this encounter (statuses as of 10/14/2023) Active Problems Problem Noted Date Diagnosed Date Primary osteoarthritis of left knee 05/05/2020 HTN, goal below 140/90 11/08/2014 Type 2 diabetes mellitus wit h hemoglobin A1c goal of less than 7.0% 12/05/2011 Overview: ICD-10 update of inactive term Dyslipidemia, goal LDL below 100 12/05/2011 Generalized osteoarthritis 04/06/2010 documented as of this encounter (statuses as of 10/14/2023) Resolved Problems Problem Noted Date Diagnosed Date [...] as of this encounter (statuses as of 10/14/2023) Immunizations Name Administration Dates Next Due COVID-19 mRNA, LNP-s, No Pre serve, 2-Dose Series ([employer]) 07/30/2021,11/30/2020,11/09/2020 COVID-19, MRNA-LNP, 23-24, P F, 30 MCG/0.3 mL, 12 YRS AND ABOVE, IM (Claro-Comirnat) 06/30/2023 Covid-19, Mrna, Lnp-s, Pf, B ivalent, [...] Team (Late st Contact Info) Description 02/16/2024 8:00 AM EDT Office Visit Ophthalmology, [facility] [address] [facility] [place] [address] Brandt Washington T, DO [address] [facility] [place] [address] 09/06/2024 11:00 AM EST Office Visit [facility] [address] [place] [phone] Nisa Goodrich PABrinaC [address] [place] [address] Scheduled Procedures Name Priority Associated Diagnoses Date/Ti me COLONOSCOPY FLEXIBLE PROXIMA L DIAGNOSTIC Recall Encounter for screening colonoscopy Scheduled Referrals Name Type Priority Associated Diagnoses Orde r Schedule ADULT/PEDS OPHTHALMOLOGY/OPTOM ETRY REFERRAL OP Referral Within 10 days (routine) Droopy eyelid Ordered: 10/14/2023 Health Maintenance Due Date Last Done Comments Hepatitis C Screening 1974 Cologuard 2001 Fecal Occult Blood Test 2001 Sigmoidoscopy 2001 Depression Screening 05/05/2021 05/05/2020 Diabetic Eye Exam 09/08/2021 09/08/2020, , 12/05/2011 Pneumococcal Vaccine: 65+ Years (2 - PCV) 07/30/2022 07/30/2021, 09/12/2011 HbA1c 04/07/2024 10/08/2023, 09/01, 05/10/2022, Additional history exists Diabetic Foot Exam 09/03/2024 09/03/2023, 0 02/09/2021, 10/05/2018, Additional history exists Albumin/Creatinine Ratio 10/08/2024 024, [...] as of this encounter Visit Diagnoses Diagnosis Droopy eyelid- Primary Unspecified ptosis of eyelid documented in this encounter Advance Directives Latest Code Status on File Code Status Date Activated Date Inactivated Comments Full Code 07/05/2019 10:32 AM 07/05/2019 4:23 PM This order reflects the patients wishes and were consensually agreed upon. Care Teams Distribution Center Associate Relationship Specialty Start Date End Date Alonso Daigle MD [address] [place] [facility] [place] [address] PCP - General 08/28/01 documented as of this encounter
--- OUTSIDE RECORDS SUMMARY | 2024-02-11 23:23 | External Medical Summary | Summary of Care ---
Author Name Unknown Organization [facility] Address [address] [place] [address] Phone [phone] Care Team Providers Care Director Data Architecture Name Role Phone Alonso Young MD Primary Care Provider +1- [phone] Reason for Visit * Reason Onset Date Comments Test Results Lab 10/10/2023 Encounter Details Date Type Department Care Team (Late st Contact Info) Description 10/10/2023 Telephone [facility] [address] [place] [address] Alonso Young MD [address] [place] [address] Test Results Lab Allergies No [...] mRNA, LNP-s, No Pre serve, 2-Dose Series ([employer])) 07/30/2021,11/30/2020,11/09/2020 COVID-19, MRNA-LNP, 23-24, P F, 30 MCG/0.3 mL, 12 YRS AND ABOVE, IM (dakick-Comirnat) 06/30/2023 Covid-19, Mrna, Lnp-s, Pf, B ivalent, [...] [facility] [phone] 10/17/2023 11:11 AM * Telephone Encounter - Linda Ramirez CPhT - 10/17/2023 11:04 AM EST Pt returning call. Transferred caller to [facility] Thank you, Suzy Ramirez Horse Rancher I Centralized Clinical Pharmacy Services (Former[facility]pharmacy) 10/17/2023,11:04 AM * Telephone Encounter - Paul Rosales [facility] - 10/16/2023 2:36 PM EST Unable to reach patient at this time. Left message on the answering machine requesting callback regarding metformin. Advised patient to please call [phone]. Please transfer him back to myself. If I'm not available, transfer to next available [facility]. Pharmacist please review: A1c increase to 7.8% [...] Clinical Pharmacy Services ([facility] - Former[facility]) [phone] 10/16/2023 2:36 PM * Telephone Encounter - [...] with morning and evening meals. Thanks, Paul Roasles, PharmD Clinical Pharmacist [facility] ([facility] - [facility]) [phone] 10/10/2023 2:50 PM documented in this encounter Plan of Treatment Upcoming Encounters Date Type Department Care Team (Late st Contact Info) Description 01/16/2024 7:40 AM EDT Laboratory Laboratory, [address] [phone] [facility] [address] [place], [place] [phone] 02/16/2024 8:00 AM EDT Office Visit Ophthalmology, [address] [place] [address] Brandt Washington, DO [address] [place] [address] 09/06/2024 11:00 AM EST Office Visit Family Practice, [place] [address] [place] [phone] Nisa Goodrich PABrinaC [address] [place] [address] Scheduled Orders Name Type Priority [...] and were consensually agreed upon. Care Teams Director Data Architecture Relationship Specialty Start Date End Date Alonso Young MD [address] [place] [address] PCP - General 08/28/01 documented as of this encounter
--- OUTSIDE RECORDS SUMMARY | 2024-02-11 23:23 | External Medical Summary | Summary of Care ---
Author Name Unknown Organization [facility] Address [address] [place] [address] Phone [phone] Care Team Providers Care Client Onboarding Analyst Name Role Phone Alonso Daigle MD Primary Care Provider +1- [phone] Reason for Visit * Reason Onset Date Comments Encounter Created in Error 09/03/2023 Encounter Details Date Type Department Care Team (Late st Contact Info) Description 09/03/2023 Telephone [facility] [address] [place] [address] Alonso Daigle MD [address] [place] [address] Encounter Created in Error Allergies No known active allergiesdocumented as of this encounter (statuses as of 09/03/2023) Medications Medication Sig Dispensed Refills Start Date [...] or chew. 50 Capsule 1 08/28/2023 Active documented as of this encounter (statuses as of 09/03/2023) Active Problems Problem Noted Date Diagnosed Date Primary osteoarthritis of left knee 05/05/2020 HTN, goal below 140/90 11/08/2014 Type 2 diabetes mellitus wit h hemoglobin A1c goal of less than 7.0% 12/05/2011 Overview: ICD-10 update of inactive term Dyslipidemia, goal LDL below 100 12/05/2011 Generalized osteoarthritis 04/06/2010 documented as of this encounter (statuses as of 09/03/2023) Resolved Problems Problem Noted Date Diagnosed Date [...] as of this encounter (statuses as of 09/03/2023) Immunizations Name Administration Dates Next Due COVID-19 mRNA, LNP-s, No Pre serve, 2-Dose Series ([employer]) 07/30/2021,11/30/2020,11/09/2020 COVID-19, MRNA-LNP, 23-24, P F, 30 MCG/0.3 mL, 12 YRS AND ABOVE, IM (PFIZER-Comirnat) 06/30/2023 Covid-19, Mrna, Lnp-s, Pf, B ivalent, [...] encounter Miscellaneous Notes * Telephone Encounter - Annie Puri OSA - 09/03/2023 1:07 PM EST error documented in this encounter Plan of Treatment Upcoming Encounters Date Type Department Care Team (Late st Contact Info) Description 09/06/2024 11:00 AM EST Office Visit [facility] [address] [place] [facility] [place] [address] Nisa Goodrich PA-C [address] [place] [facility] [place] [address] Scheduled Procedures Name Priority Associated Diagnoses Date/Ti [...] 09/24/2021, Additional history exists Albumin/Creatinine Ratio 05/10/2023 092 022, 09/24/2021, 02/09/2021, Additional history exists B-12 05/10/2023 05/10/2022, 01/30, 05/05/2020, Additional history exists GFR 09/12/2023 09/12/2022, 09/0 05/2022, 09/24/2021, Additional history exists Diabetic Foot Exam 09/03/2024 09/03/2023, 0 02/09/2021, 10/05/2018, Additional history exists Lipid Panel 05/10/2027 05/10/2022, 090 05/2022, 09/24/2021, Additional history exists Colonoscopy 05/07/2028 05/07/2018, 090 01/2018, 01/13/2007 Colorectal Cancer Screening 05/07/2028 DTaP,Tdap,and [...] and were consensually agreed upon. Care Teams Client Onboarding Analyst Relationship Specialty Start Date End Date Alonso Daigle MD [address] [place] [address] PCP - General 08/28/01 documented as of this encounter
--- OUTSIDE RECORDS SUMMARY | 2024-02-11 23:23 | External Medical Summary | Summary of Care ---
Author Name Unknown Organization [facility] Address [address] [facility] [address] Phone [phone] Care Team Providers Care Child Care Attendant School Name Role Phone Alonso Daigle MD Primary Care Provider +1- [phone] Encounter Details Date Type Department Care Team (Late st Contact Info) Description 10/15/2023 Orders Only [facility] [address] [place] [address] Alonso Daigle MD [address] [place] [address] Allergies No known active allergiesdocumented as of this encounter (statuses as of 10/15/2023) Medications Medication Sig Dispensed Refills Start Date [...] as of this encounter (statuses as of 10/15/2023) Active Problems Problem Noted Date Diagnosed Date Primary osteoarthritis of left knee 05/05/2020 HTN, goal below 140/90 11/08/2014 Type 2 diabetes mellitus wit h hemoglobin A1c goal of less than 7.0% 12/05/2011 Overview: ICD-10 update of inactive term Dyslipidemia, goal LDL below 100 12/05/2011 Generalized osteoarthritis 04/06/2010 documented as of this encounter (statuses as of 10/15/2023) Resolved Problems Problem Noted Date Diagnosed Date [...] as of this encounter (statuses as of 10/15/2023) Immunizations Name Administration Dates Next Due COVID-19 mRNA, LNP-s, No Pre serve, 2-Dose Series ([employer]) 07/30/2021,11/30/2020,11/09/2020 COVID-19, MRNA-LNP, 23-24, P F, 30 MCG/0.3 mL, 12 YRS AND ABOVE, IM ([employer]-Comirnat) 06/30/2023 Covid-19, Mrna, Lnp-s, Pf, B ivalent, [...] 02/16/2024 8:00 AM EDT Office Visit Ophthalmology, [facility] [address] [place] [address] Brandt Washington, DO [address] [facility] [place] [address] 09/06/2024 11:00 AM EST [facility] [address] [facility] [phone] Nisa Goodrich PA-C [address] [place] [address] Scheduled Procedures Name Priority Associated Diagnoses Date/Ti me COLONOSCOPY FLEXIBLE PROXIMA L DIAGNOSTIC Recall Encounter for screening colonoscopy Health Maintenance Due Date Last Done Comments Hepatitis C Screening 1974 Cologuard 2001 Fecal Occult Blood Test 2001 Sigmoidoscopy 2001 Depression Screening 05/05/2021 05/05/2020 Pneumococcal Vaccine: 65+ Years (2 - PCV) [...] Not on filedocumented as of this encounter Procedures Procedure Name Priority Date/Time Associated Diagnosis Comments DIABETIC EYE EXAM Routine 10/07/2023 documented in this encounter Results * DIABETIC EYE EXAM (10/07/2023) 10/07/2023 History Per Patient OTHER OUTSIDE LAB (SEE SCANNED REPORT) documented in this encounter Advance Directives Latest Code Status on File Code Status Date Activated Date Inactivated Comments Full Code 07/05/2019 10:32 AM 07/05/2019 4:23 PM This order reflects the patients wishes and were consensually agreed upon. Care Teams Child Care Attendant School Relationship Specialty Start Date End Date Alonso Daigle MD [address] [place] [address] PCP - General 08/28/01 documented as of this encounter
--- OUTSIDE RECORDS SUMMARY | 2024-02-11 23:23 | External Medical Summary ---
Author Name Unknown Address Unknown Organization [id number]:[facility] [place] - [address] [facility] [place] [address] Laboratory Report Ordering Provider Test Date Status DELMIS MILLER 10/08/2023 09:11:02 Final Observation Date Value Abnormality Reference (Units ) Status BUN 10/08/2023 09:11:02 19 6-20 (mg/dL) Final Creatinine 10/08/2023 09:11:02 1.1 0.6-1.2 (mg/dL) Final Glomerular filtration rate/1.73 sq M.predicted [Volume Rate/Area] in Serum, Plasma or Blood by Creatinine-based formula (CKD-EPI) 10/08/2023 09:11:02 76 >=60 (mL/min) Final eGFR is calculated based on the CKD-EPI 2020 equation SODIUM 10/08/2023 09:11:02 137 135-146 (m mol/L) Final Potassium 10/08/2023 09:11:02 4.6 3.5-5.1 (m mol/L) Final Cl 10/08/2023 09:11:02 100 98-107 (mm ol/L) Final CO2 10/08/2023 09:11:02 27 22-32 (mmo l/L) Final Anion gap 10/08/2023 09:11:02 10 7-15 (mmol /L) Final Glucose 10/08/2023 09:11:02 228 Above high normal 70 -120 (mg/dL) Final Albumin 10/08/2023 09:11:02 4.6 3.8-5.0 (g /dL) Final AST (Aspartate aminotransferase) 10/08/2023 09:11:02 17 10-50 (U/L) Fin al Alk Phos 10/08/2023 09:11:02 95 35-130 (U/ L) Final Bilirubin, Total 10/08/2023 09:11:02 0.8 <=1 .2 (mg/dL) Final Calcium 10/08/2023 09:11:02 9.6 8.4-10.2 ( mg/dL) Final Protein 10/08/2023 09:11:02 6.6 6.0-8.3 (g /dL) Final ALT (Alanine aminotransferase) 10/08/2023 09:11:02 28 10-50 (U/L) Clyde serrano Performing Location [facility] [place] - [address] [facility] [address]
--- OUTSIDE RECORDS SUMMARY | 2024-02-11 23:23 | External Medical Summary | Summary of Care ---
Author Name Unknown Organization [facility] Address [address] [place] [address] Phone [phone] Care Team Providers Care Stock Worker And Deliverer Name Role Phone Alonso Daigle MD Primary Care Provider [phone]- [phone] Reason for Visit * Reason Onset Date Comments Letter Requests 09/03/2023 Letter for work request Encounter Details Date Type Department Care Team (Late st Contact Info) Description 09/03/[address] [facility] [address] [place] [address] Nisa Goodrich PA-C [address] [place] [address] Letter Requests (Letter for work request) Allergies No known active allergiesdocumented as of this encounter (statuses as of 09/04/2023) Medications Medication Sig Dispensed Refills Start Date [...] as of this encounter (statuses as of 09/04/2023) Active Problems Problem Noted Date Diagnosed Date Primary osteoarthritis of left knee 05/05/2020 HTN, goal below 140/90 11/08/2014 Type 2 diabetes mellitus wit h hemoglobin A1c goal of less than 7.0% 12/05/2011 Overview: ICD-10 update of inactive term Dyslipidemia, goal LDL below 100 12/05/2011 Generalized osteoarthritis 04/06/2010 documented as of this encounter (statuses as of 09/04/2023) Resolved Problems Problem Noted Date Diagnosed Date [...] as of this encounter (statuses as of 09/04/2023) Immunizations Name Administration Dates Next Due COVID-19 mRNA, LNP-s, No Pre serve, 2-Dose Series ([employer]) 07/30/2021,11/30/2020,11/09/2020 COVID-19, MRNA-LNP, 23-24, P F, 30 MCG/0.3 mL, 12 YRS AND ABOVE, IM ([employer]Com[employer]nat) 06/30/2023 Covid-19, Mrna, Lnp-s, Pf, B ivalent, [...] encounter Miscellaneous Notes * Telephone Encounter - Caitlyn Carvalho OSA - 09/04/2023 11:26 AM EST 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 He called at 1:09PM and came into the office at 4:15 for the note. I asked if anyone called him to pick it up he said no I said it has only been 3 hours we require a 48-72 hour turn around time. He said Nisa told me today that I was to test my for Covid bc she had a tickle in her throat and she does have covid. Patient was not wearing a mask and I let him know that he should not be in public if his is COVID positive. He got angry at me and said I don't have any symptoms. I lethim know we will call him when the note Is ready and we can even fax it to his work for him so thathe doesn't have to make another trip in here to the office. Especially if the note isn't ready I don't want him making multiple trips just to be told it's not ready. Patient got mad and left. Please write work excuse and route back to me so that I may call the patient to let him know it is ready for us to fax to his work. 09/03/2023 * Telephone Encounter - Annie Puri OSA - 09/03/2023 1:07 PM EST Type of letter requested: letter for work Does the letter need to provide any specific information: was seen by Nisa today, 09/03/23 and canreturn back to work on 09/04/23 Would you like letter faxed or picked up?: picked up Fax number: Number to be called when ready to be picked up: [phone] Date needed: today, 09/03/23 documented in this encounter Plan of Treatment Upcoming Encounters Date Type Department Care Team (Late st Contact Info) Description 09/06/2024 11:00 AM EST Office Visit [facility] [address] [place] [id number] Nisa Goodrich PA-C [address] [place] [address] Scheduled Procedures Name Priority Associated Diagnoses Date/Ti [...] 0905/2022, 09/24/2021, Additional history exists Albumin/Creatinine Ratio 05/10/20232 022, 09/24/2021, 02/09/2021, Additional history exists B-12 [...] this encounter Visit Diagnoses Diagnosis COVID-19- Primary documented in this encounter Advance Directives Latest Code Status on File Code Status Date Activated Date Inactivated Comments Full Code 07/05/2019 10:32 AM 07/05/2019 4:23 PM This order reflects the patients wishes and were consensually agreed upon. Care Teams Stock Worker And Deliverer Relationship Specialty Start Date End Date Alonso Daigle MD [address] [facility] [place] [address] PCP - General 08/28/01 documented as of this encounter
--- OUTSIDE RECORDS SUMMARY | 2024-02-11 23:23 | External Medical Summary ---
Author Name Unknown Address Unknown Organization K01:[facility] [place] - [address] [place] [address] Laboratory Report Ordering Provider Test Date Status HANNAH YOST 10/08/2023 09:11:02 Final Observation Date Value Abnormality Reference (Units ) Status Vitamin B12 10/08/2023 09:11:02 [phone] (pg/mL) Final Performing Location [facility] - [address] [facility] [address]
--- OUTSIDE RECORDS SUMMARY | 2024-02-11 23:23 | External Medical Summary | Summary of Care ---
Author Name Unknown Organization [facility] Address [address] [place] [address] Phone [phone] Care Team Providers Care Supervisor Grips Name Role Phone Alonso Daigle MD Primary Care Provider [phone]- [phone] Reason for Visit * Reason Comments Physical-Exam CDL Physical Encounter Details Date Type Department Care Team (Late st Contact Info) Description 09/03/2023 7:40 AM EST Office Visit [facility] [address] [place] [address] Nisa Goodrich PA-C [address] [place] [address] DM type 2 nursing care encounter (HCC)*; ICC Director Translation's Physical Allergies No known active allergiesdocumented as of [...] mRNA, LNP-s, No Pre serve, 2-Dose Series ([employer]) 07/30/2021,11/30/2020,11/09/2020 COVID-19, MRNA-LNP, 23-24, P F, 30 MCG/0.3 mL, 12 YRS AND ABOVE, IM ([employer]) 06/30/2023 Covid-19, Mrna, Lnp-s, Pf, B ivalent, 30 Mcg, IM, 12 yrs and above ([employer]) 06/20/2022 HEP A - Hepatitis A (Adult [...] Sign Reading Time Taken Comments Blood Pressure 132/64 09/03/2023 7:40 AM EST Pulse 76 09/03/2023 7:40 AM EST Temperature 36.7 C (98 F) 09/03/2023 7:40 AM EST Respiratory Rate 16 09/03/2023 7:40 AM EST Oxygen Saturation 96% 09/03/2023 7:40 AM EST Inhaled Oxygen Concentration - - Weight 111.4 kg (245 lb 9.6 oz) 09/03/2023 7:40 AM EST Height 172.7 cm (5' 8") 09/03/2023 7:40 AM EST Body Mass Index 37.34 09/03/2023 7:40 AM EST documented in this encounter Patient Instructions * Patient Instructions* Betty Morales LPN - 09/03/2023 7:39 AM EST Diabetes: Keeping Feet Healthy Inspect your feet every day for signs of a problem. Diabetes can damage nerves in your feet and cause neuropathy. This condition makes it hard for you to feel injuries or sore spots. Diabetes can also change blood flow, making it harder for small problems, like a blister, to heal properly. In fact, minor injuries can quickly become serious infections that send you to the hospital. Practice self-care to protect your feet and keep them healthy. Take Special Care Inspect your feet daily for problems such as redness, blisters, cracks, dry skin, or numbness. Use a mirror to see the bottoms of your feet. Or, ask for help. Manage your diabetes. Monitor and control your blood sugar. Take all your medications as prescribed. Avoid walking barefoot, even indoors. Wash your feet with warm water and mild soap. Dry well, especially between toes. Dont treat corns or calluses yourself. Talk to your doctor or pipe buffer (a doctor who specializes in foot care) if you need assistance trimming your toenails. Use moisturizing cream or lotion if you have dry skin, but dont use it between toes. Dont use heating pads on your feet. If you have neuropathy, you could get a burn and not feel it. Stop smoking. Smoking restricts blood flow and can make it harder for wounds to heal. Have Regular Checkups Foot problems can develop quickly. So be sure to follow your healthcare teams schedule for regular checkups. During office visits, take off your shoes and socks as soon as you get in the exam room. Ask your healthcare provider to examine your feet for problems. This will make it easier to find and treat small skin irritations before they get worse. Regular checkups can also help keep track of the blood flow and feeling in your feet. If you have neuropathy, you may need to have checkups more often. Wear Proper Footwear Wearing proper footwear is very important. If areas of your feet have been damaged by too much pressure, your healthcare provider may recommend changing your footwear. In some cases, avoiding high heels or tight work boots may be all thats needed. Or, your healthcare provider may recommend special shoes or custom inserts. These help protect your feet and keep existing irritations from getting worse. If you need special footwear, ask your healthcare provider if you qualify for [employer] diabetic shoe program. Make Sure Shoes and Socks Fit Any pair of shoes--new or old--should feel comfortable as soon as you put them on. There shouldnt be any rubbing when you walk. Wear the right shoe for any activity. For instance, a running shoe is designed to keep your feet injury-free while jogging. Buy shoes at the end of the day, when your feet are larger. Make sure they provide support without feeling too loose. Make sure your socks fit, t oo. Wear soft, seamless, well-padded socks for activity. Cotton or microfiber socks are best to help to absorb sweat. To protect your feet, avoid shoes that are open-toed or open-heeled. If you have questions about what kinds of shoes and socks are best, talk to your healthcare team. Get Regular Exercise Regular exercise improves blood flow in your feet. It also increases foot strength and flexibility.Gentle exercises, like walking or riding a stationary bicycle, are best. You can also do special foot exercises. Just be sure to talk with your healthcare provider before starting any exercise program. Also mention if any exercise causes pain, redness, or other signs of foot problems. Note: If you have any kind of break in the skin of your foot or ankle, keep the area clean. Then call your doctor--especially if the area doesnt appear to be healing. [id number] [employer], [address] [place] [address], [place] [address]. All rights reserved. This information is not intended as a substitute for professional medical care. Always follow your healthcare professional's instructions. documented in this encounter Progress Notes * Nisa Goodrich PA-C - 09/03/2023 7:49 AM EST ICC Physical Examination [place] [employer] Date of exam: September 03, 2023 Certification: Recertification Director Translation's Name: Almas Pack Address: [address] [place] [address] [place] [address] SSN: [id number] Date of : 1955 Age: [age] year old Sex: male Phone: Home/Work: (home) Director Translation License No: [id number] License class-A,B,C,D, other: State of issue: [place] Health History: Any illness or injury in the last 5 years: no Head/Brain injuries, disorders or illnesses: no Seizures, epilepsy: no If yes- Medication: n/a Eye disorders or impaired vision (except corrective lenses): no Ear disorders, loss of hearing or balance: no Heart disease or heart attack; other cardiovascular condition: no If yes- Medication: n/a Heart surgery (valve replacement/bypass, angioplasty, pacemaker): no High blood pressure: no If yes-Medication: n/a Shortness of breath: no Lung disease, emphysema, asthma, chronic bronchitis: no Kidney disease, dialysis: no Liver disease: no Digestive problems: yes: controlled Diabetes or elevated blood sugar controlled by: yes: controlled Diet/pills/insulin: metformin Nervous or psychiatric disorders, e.g., servere depression: no If yes- Medication: n/a Loss of,or altered consciousness: no Fainting, dizziness: no Sleep disorders, pauses in breathing while asleep, daytime sleepiness, loud snoring: no Stroke or paralysis: no Missing or impaired hand, arm, foot, leg, finger, toe: no Spinal injury or disease: no Chronic low back pain: no Regular, frequent alcohol use: no Narcotic or habit forming drug use: no For any YES answer, indicate onset date, diagnosis, treating physicians name and address, and any curret limitations: List all medications (including over the counter medications) used regularly or recently. [facility] with [facility] Hem[facility] AIC Results: Lab Results Component Value Date/Time HEMOGLOBIN A1C - [facility] 7.4 (H) 09/12/2022 08:16 AM HEMOGLOBIN A1C - [facility] 6.4 (H) 05/10/2022 08:30 AM HEMOGLOBIN A1C - [facility] 7.1 (H) 09/24/2021 12:46 PM HEMOGLOBIN A1C - [facility] 6.3 (H) 05/05/2020 07:47 AM HEMOGLOBIN A1C - [facility] 6.7 (H) 03/24/2019 09:17 AM HEMOGLOBIN A1C - [facility] 6.9 (H) 10/05/2018 08:21 AM General appearance and development: Vision: acuity, color vision, field of vision as noted above Evidence of disease or injury: Right: no Right: n/a Left: no Left: n/a Both: no Both: n/a Corrected: Horizontal Field Of Vision: Right eye: 20/20 Right eye: 90 Left eye: 20/20 Left eye: 90 Applicant can recognize and distinguish amount traffic control signals and devices showing standardred, green and mile: yes Applicant meets visual acuity requirement only when wearing: Corrective lenses: yes Monocular Vision: no Hearing: Audiometric screen as noted above. Right: Normal Left: Normal Evidence of disease or injury: no BP 132/64 | Pulse 76 | Temp 36.7 C (98 F) (Infrared ) | Resp 16 | Ht 1.727 m (5' 8") | Wt 111.4kg (245 lb 9.6 oz) | SpO2 96% | BMI 37.34 kg/m | BSA 2.31 m General appearance: ao X 3, nad Eyes: Normal Ears: Normal Mouth/Throat: Normal Thorax: Heart: Normal If organic disease is present, is it fully compensated? N/A Blood Pressure: 132/64 Pulse: Before exercise: 76 Immediately after exercise: 76 Lungs: Normal Abdomen: Scars: no Abnormal masses: no Tenderness: no Hernia: no Is truss worn? no Vascular disease: no Gastrointestinal: Ulceration or other diseases: no Genito-urinary: Scars: no Urethral discharge: no Reflexes: Rhomberg: Normal Pupillary: Normal Light: Right: Normal Left: Normal Accomodation: Right: Normal Left: Normal Knee Jerks: Right: normal Left: normal Remarks: normal exam, Extremities: Upper: Normal Lower: Normal Spine: Normal Laboratory and other special findings: Urine: Specific Sheffield: 1.025 Albumin: Normal Sugar: Normal Other laboratory data: Serology: Radiologic data: Electrocardiograph: Controlled substances testing: Controlled substances test NOT performed General comments: normal exam Meets standards in 49 CFR 391.41; qualifies for 2 year certificate: NO Does not meet standards: N/A Meets standards, but periodic monitoring required due to: N/A Director Translation qualified only for: 3, 6, l year, other: months allowed/n/a: 1 year , htn and dm Temporarily disqualified due to (condition or medication): N/A Return to regional medical director's office for follow up on: not applicable Wearing corrective lenses: yes Wearing hearing aid: no Accompanied by a n/a waiver/exemption. Director Translation must present exemption at time of certification. N/A Skill Performance Evaluation (SPE) Certificate. N/A Driving within an exempt intracity zone (See 49 CFR 391.62): N/A Qualified by operation of 49 CFR 391.64: N/A Signature of medical provider Name of regional medical director: Nisa Goodrich PA-C Address of regional medical director: [address] [place] [address] mail examiner's Certificate to be completed only if auto driver is found qualified. * Betty Morales LPN - 09/03/2023 7:39 AM EST DM Foot Exam completed today. Provider aware. Betty Morales LPN Socks and Shoes Removed for Annual Diabetic Foot Screening RIGHT FOOT: No Reddened, Cracking, Or Open Areas Noted. RIGHT Dorsalis Pedis Pulse: Palpable RIGHT Posterior Tibial Pulse: Palpable RIGHT Monofilament:Patient reports feeling monofilament pressure on plantar surface of foot LEFT FOOT: No Reddened, Cracking or Open Areas Noted. LEFT Dorsalis Pedis Pulse: Palpable LEFT Posterior Tibial Pulse: Palpable LEFT Monofilament:Patient reports feeling monofilament pressure on plantar surface of foot Do you need diabetic shoes: No DM Foot Exam completed today. Provider aware. Betty Morales LPN documented in this encounter Nursing Notes * Betty Morales LPN - 09/03/2023 7:36 AM EST Chief Complaint Patient presents with Physical-Exam CDL Physical documented in this encounter Plan of Treatment Upcoming Encounters Date Type Department Care Team (Late st Contact Info) Description 08/18/2024 7:40 AM EST Office Visit [facility] [address] [place] [facility] [place] [phone] Nisa Goodrich PA-C [address] [facility] [place] [id number] Scheduled Orders Name Type Priority Associated Diagnoses Orde r Schedule HEARING SCREEN Procedures Routine ICC Director Translation's Physical Ordered: 09/03/2023 VISUAL ACUITY SCREEN, NURSE/TECH Procedures Routine ICC Director Translation's Physical Ordered: 09/03/2023 Scheduled Procedures Name Priority Associated Diagnoses Date/Ti [...] 05/2022, 09/24/2021, Additional history exists Albumin/Creatinine Ratio 05/10/20232 022, 09/24/2021, 02/09/2021, Additional history exists B-12 05/10/2023 05/10/2022, 01/30, 05/05/2020, Additional history exists GFR 09/12/2023 09/12/2022, 090 05/2022, 09/24/2021, Additional history exists Diabetic Foot [...] Procedure Name Priority Date/Time Associated Diagnosis Comments URINALYSIS, POINT OF CARE (ENTER/EDIT) Routine 09/03/2023 ICC Director Translation's Physical documented in this encounter Results * URINALYSIS, POINT OF CARE (ENTER/EDIT) (09/03/2023) Color, Urine Yellow Yellow or Light Yellow Clarity, Urine Clear Clear Glucose, Urine Negative Negative mg/dL Bilirubin, Urine Negative Negative Ketone, Urine Negative Negative mg/dL Specific [place], Urine 1.025 1.003 - 1.030 Blood, Urine Negative Negative pH, Urine 5.0 5.0 - 7.5 units Protein, Urine Negative Negative mg/dL Urobilinogen, Urine 0.2 0.2 - 1.0 mg/dL Nitrite, Urine Negative Negative Esterase, Urine Negative Negative Urine 09/03/2023 Nisa Goodrich PA-C LAB POINT OF CARE TEST ENTER/EDIT ORDERABLES documented in this encounter Visit Diagnoses Diagnosis DM type 2 nursing care encounter (HCC)- Primary Type II or unspecified type diabetes mellitus without mention of complication, not stated as uncontrolled ICC Director Translation's Physical Unspecified general medical examination documented in this encounter Advance Directives Latest Code Status on File Code Status Date Activated Date Inactivated Comments Full Code 07/05/2019 10:32 AM 07/05/2019 4:23 PM This order reflects the patients wishes and were consensually agreed upon. Care Teams Supervisor Grips Relationship Specialty Start Date End Date Alonso Daigle MD [address] [facility] [place] [address] PCP - General 08/28/01 documented as of this encounter
--- OUTSIDE RECORDS SUMMARY | 2024-02-11 23:23 | External Medical Summary | Summary of Care ---
Author Name Unknown Organization [facility] Address [address] [place] [address] Phone [phone] Care Team Providers Care School Fundraising Director Name Role Phone Alonso Daigle MD Primary Care Provider [phone] Reason for Referral * Evaluate & Treat - Unlimited Visits (Within 10 days (routine)) - Authorized Specialty Diagnoses / Procedures Referred By Contac t Referred To Contact Sports Medicine / Orthopedics Diagnoses Rotator cuff syndrome of both shoulders Impingement of shoulder Juarez Swann MD [address] [place] [address] Referral ID Status Reason Start Date Expiration Date Visits Requested Visits Authorized [id number] Authorized Specialty Services Required 11/17/2023 999 999 Question Answer Referral Priority Within 10 days (routine) Where should this appointment be scheduled? [facility] What body part is the patient being seen for? Shoulder What condition is the patient being seen for? Arthritis including related infection * Evaluate & Treat - Unlimited Visits (Within 10 days (routine)) - Authorized Specialty Diagnoses / Procedures Referred By Contac t Referred To Contact Physical Therapy / Physical Medicine And Rehab Diagnoses Rotator cuff syndrome of both shoulders Impingement of shoulder Juarez Swann MD [address] [place] [address] Referral ID Status Reason Start Date Expiration Date Visits Requested Visits Authorized [id number] Authorized Specialty Services Required 11/17/2023 999 999 Question Answer Referral Priority Within 10 days (routine) Where should this appointment be scheduled? [facility] Comments Bilateral rotator cuff syndrome, impingement Reason for Visit * Reason Comments Follow Up Had a fall in Novemb er, now has pain in shoulders and neck, difficulty raising arms, increased heartburn Encounter Details Date Type Department Care Team (Late st Contact Info) Description 11/17/2023 4:20 PM EDT Office Visit [facility] [address] [place] [address] Juarez Swann MD [address] [place] [address] Rotator cuff syndrome of both shoulders*; Impingement of shoulder; HTN, goal below 140/90; Dyslipidemia, goal LDL below 100 Allergies No known active allergiesdocumented as of this encounter (statuses as of 11/17/2023) Medications Medication Sig Dispensed Refills Start Date [...] 4 Active Lisinopril 20 MG Oral Tablet (Prinivil)Indic ations:HTN, goal below 140/90 TAKE ONE TABLET BY MOUTH EVERY DAY 90 Tablet 3 11/27/2022 4 Active Fluticasone Propionate 50 MCG/ACT Nasal Suspension (Flonase) ADMINISTER 2 SPRAYS INTO EACH NOSTRIL DAILY IN THE MORNING 48 g 3 11/17/2022 4 Active Benzonatate 100 MG Oral Capsule (Tessalon [place])Indicati ons:COVID-19 Take 1 Capsule by mouth 3 times a day as needed for Cough. Do not cut, crush, or chew. 50 Capsule 1 08/28/2023 Active Montelukast Sodium 10 MG Oral Tablet (Singulair)Alta [...] Activ e Citrucel 500 MG Oral Tablet (Methylcellulos e (Laxative)) Take 1 Tablet by mouth as needed for Constipation. 0 Active Esomeprazole Magnesium 20 MG Oral Capsule Delayed Release (NexIUM) Take 1 Capsule by mouth daily before breakfast. 0 Active Nirmatrelvir&Ri tonavir 300/100 20 x 150 MG & 10 x 100MG Oral Tablet Therapy Pack (Paxlovid (300/100))Indic ations:COVID-19 Take 2 pink tablets of Nirmatrelvir and 1 white tablet of Ritonavir two times a day by mouth. 30 Tablet 0 08/27/2023 4 Discontinued documented as of this encounter (statuses as of 11/17/2023) Active Problems Problem Noted Date Diagnosed Date Primary osteoarthritis of left knee 05/05/2020 HTN, goal below 140/90 11/08/2014 Type 2 diabetes mellitus wit h hemoglobin A1c goal of less than 7.0% 12/05/2011 Overview: ICD-10 update of inactive term Dyslipidemia, goal LDL below 100 12/05/2011 Generalized osteoarthritis 04/06/2010 documented as of this encounter (statuses as of 11/17/2023) Resolved Problems Problem Noted Date Diagnosed Date [...] as of this encounter (statuses as of 11/17/2023) Immunizations Name Administration Dates Next Due COVID-19 mRNA, LNP-s, No Pre serve, 2-Dose Series ([employer]) 07/30/2021,11/30/2020,11/09/2020 COVID-19, MRNA-LNP, 23-24, P F, 30 MCG/0.3 mL, 12 YRS AND ABOVE, IM ([employer]) 06/30/2023 Covid-19, Mrna, Lnp-s, Pf, B ivalent, 30 Mcg, IM, 12 yrs and above ([employer]) 06/20/2022 HEP A - Hepatitis A (Adult [...] Sign Reading Time Taken Comments Blood Pressure 124/62 11/17/2023 4:06 PM EDT Pulse 74 11/17/2023 4:06 PM EDT Temperature 36.7 C (98 F) 11/17/2023 4:06 PM EDT Respiratory Rate 16 11/17/2023 4:06 PM EDT Oxygen Saturation - - Inhaled Oxygen Concentration - - Weight 117 kg (258 lb) 11/17/2023 4:06 PM EDT Height - - Body Mass Index 39.23 09/03/2023 7:40 AM EST documented in this encounter Progress Notes * Juarez Swann MD - 11/17/2023 5:02 PM EDT Images from the original note were not included. Assessment and Plan Rotator cuff syndrome and signs of impingement in the shoulders bilaterally. We discussed the importance of physical therapy and treatment. He was agreeable to starting physical therapy [facility]. Recommend heat/ice along with oral Tylenol and topicals. He would like to consider an injection but prefersto go to orthopedics for further evaluation and consideration of injection. He does have reasonably well-controlled diabetes with an A1c of 7.8 and therefore would likely be okay to receive the injection. We will get him set up with Orthopedics and physical therapy at next available appointments. 1. Rotator cuff syndrome of both shoulders - PHYSICAL THERAPY REFERRAL OP - [facility] REFERRAL OP 2. Impingement of shoulder - PHYSICAL THERAPY REFERRAL OP - SPORTS MEDICINE REFERRAL OP 3. HTN, goal below 140/90 Blood pressure at goal. No changes to lisinopril dosing. 4. Dyslipidemia, goal LDL below 100 On statin 80 mg daily. Recent cholesterol panel in October 2023 reasonably controlled. Wrap-Up Follow up as needed. History of Present Illness The patient is a 68-year-old male with type 2 diabetes, dyslipidemia, hypertension, generalized arthritis who presents for follow up. Patient presents with shoulder and neck pain. This has been progressively worsening over the last number of months since a slip/fall on ice in July 2023. He caught himself on the rolloff driver side doorwith his left arm. He had no specific pain at that time, however, over the ensuing days and weeks pain worsened to the point where he is having difficulty abducting the arm greater than 90. He has noted weakness with internal rotation. He has not been using any medications other than Uriel-Cazares. Patient also with concerns about GERD. He currently takes 3-4 Tums daily. He has tried Protonix in the past without improvement. He is now trying Nexium as of 24-48 hours ago. Physical Exam Vitals: 11/17/23 1606 Temp: 36.7 C (98 F) Pulse: 74 Resp: 16 BP: 124/62 Physical Exam Physical Exam Vitals reviewed. Constitutional: General: He is not in acute distress. Pulmonary: Effort: Pulmonary effort is normal. No respiratory distress. Musculoskeletal: Comments: Limited active range of motion to 90 with abduction. Limited internal rotation bilaterally to the low back just above the belt. He does have full passive range of motion with only minimalpain. He has a positive sheets test bilaterally. He has positive full and empty can. No pain with internal and external rotation of the shoulders. Positive [place] bilaterally. Neurological: Mental Status: He is alert. This note has been completed in part utilizing [employer] Speech Voice Recognition Software. Due to technical limitations of the software, grammatical errors, random word insertions, prounoun errors, and incomplete sentences may occur. Any formal questions or concerns about the content, text, or information contained within the body of this dictation should be directly addressed to the provider for clarification. documented in this encounter Plan of Treatment Upcoming Encounters Date Type Department Care Team (Late st Contact Info) Description 11/25/2023 8:00 AM EDT Office Visit Orthopaedics [facility] [address] [facility] [place] [address] Kathy Chase MD [address] [facility] [place] [address] 01/16/2024 7:40 AM EDT [facility], [place] [address] [facility] [id number] [facility] [address] [place] [address] 02/16/2024 8:00 AM EDT Office Visit Ophthalmology, [facility] [address] [facility] [place] [address] Brandt [place], DO [address] [place] [address] 09/06/2024 11:00 AM EST Office Visit [facility] [address] [place] [id number] Nisa Goodrich PA-C [address] [place] [address] Scheduled Procedures Name Priority Associated Diagnoses Date/Ti me COLONOSCOPY FLEXIBLE PROXIMA L DIAGNOSTIC Recall Encounter for screening colonoscopy Scheduled Referrals Name Type Priority Associated Diagnoses Orde r Schedule PHYSICAL THERAPY REFERRAL OP Referral Within 10 days (routine) Rotator cuff syndrome of both shoulders Impingement of shoulder Ordered: 11/17/2023 SPORTS MEDICINE REFERRAL OP Referral Within 10 days (routine) Rotator cuff syndrome of both shoulders Impingement of shoulder Ordered: 11/17/2023 Health Maintenance Due Date Last Done Comments [...] 09/24/2021, Additional history exists B-12 10/08/2024 10/08/2023, 09/0 05/2022, 02/09/2021, Additional history exists GFR 10/08/2024 [...] as of this encounter Visit Diagnoses Diagnosis Rotator cuff syndrome of both shoulders- Primary Impingement of shoulder HTN, goal below 140/90 Unspecified essential hypertension Dyslipidemia, goal LDL below 100 Other and unspecified hyperlipidemia documented in this encounter Advance Directives Latest Code Status on File Code Status Date Activated Date Inactivated Comments Full Code 07/05/2019 10:32 AM 07/05/2019 4:23 PM This order reflects the patients wishes and were consensually agreed upon. Care Teams School Fundraising Director Relationship Specialty Start Date End Date Alonso Daigle MD [address] [place] [address] PCP - General 08/28/01 documented as of this encounter
--- OUTSIDE RECORDS SUMMARY | 2024-02-11 23:23 | External Medical Summary ---
Author Name Unknown Address Unknown Organization [id number]:[facility] [place] [address] [place] [address] Laboratory Report Ordering Provider Test Date Status PRIYANKHANNAH 10/08/2023 09:11:02 Final Normal: <30 mg/g creatinine< br/>High: 30-300 mg/g creatinine
Very High: >300 mg/g creatinine
Nephrotic: >2200 mg/g creatinine Observation Date Value Abnormality Reference (Units ) Status Albumin, Urine 10/08/2023 09:11:02 1.93 (mg/dL) Final Creatinine, Urine 10/08/2023 09:11:02 137 (mg/dL) Final Albumin/Creatinine [Mass Ratio] in Urine 10/08/2023 09:11:02 14 <30 (mg/g Creat) Final Performing Location [facility] [place] [facility] [address] [place] [address]
--- OUTSIDE RECORDS SUMMARY | 2024-02-11 23:24 | External Medical Summary | Summary of Care ---
Author Name Unknown Organization [facility] Address [address] [place] [address] Phone [phone] Care Team Providers Care Mushroom Farmer Name Role Phone Alonso Daigle MD Primary Care Provider [phone]- [phone] Reason for Visit * Reason Comments Hospital Follow-Up Encounter Details Date Type Department Care Team (Late st Contact Info) Description 08/04/2023 2:20 PM EST Office Visit [facility] [address] [place] [address] Alonso Daigle MD [address] [place] [address] Generalized weakness*; Viral infection; Risk and functional assessment Allergies No known active allergiesdocumented as of this encounter (statuses as of 08/24/2023) Medications Medication Sig Dispensed Refills Start Date [...] Active Fexofenadine HCl 180 MG Oral Tablet (Amairani)Indication s:Chronic rhinitis Take 1 Tab by mouth daily. 90 Tab 3 04/07/2021 Active methylPREDNISolone 4 MG Oral Tablet Therapy Pack (Medrol Dosepack)Indication s:Acute right-sided low back pain with right-sided sciatica,Lumbar degenerative disc disease follow package directions 21 Tablet 0 02/21/2023 Active Additional Information Patient not taking.Reported on 08/01/2023 Atorvastatin Calcium 80 MG Oral Tablet (Lipitor) TAKE ONE TABLET BY MOUTH EVERY DAY 90 Tablet 3 11/27/2022 11/27/2023 Active Lisinopril 20 MG Oral Tablet (Prinivil)Indicatio ns:HTN, goal below 140/90 TAKE ONE TABLET BY [...] MORNING 48 g 3 11/17/2022 11/17/2023 Active documented as of this encounter (statuses as of 08/24/2023) Active Problems Problem Noted Date Diagnosed Date [...] as of this encounter (statuses as of 08/24/2023) Resolved Problems Problem Noted Date Diagnosed Date [...] as of this encounter (statuses as of 08/24/2023) Immunizations Name Administration Dates Next Due COVID-19 mRNA, LNP-s, No Pre serve, 2-Dose Series ([employer]) 07/30/2021,11/30/2020,11/09/2020 COVID-19, MRNA-LNP, 23-24, P F, 30 MCG/0.3 mL, 12 YRS AND ABOVE, IM ([employer]) 06/30/2023 Covid-19, Mrna, Lnp-s, Pf, B ivalent, [...] 30 Q uit: 07/26/2002 Smokeless Tobacco: Never Tobacco Cessation:Counseling Given: Not [...] Sign Reading Time Taken Comments Blood Pressure 138/70 08/04/2023 2:31 PM EST Pulse 78 08/04/2023 2:31 PM EST Temperature 36.4 C (97.5 F) 08/04/2023 2:31 PM ES T Respiratory Rate 20 08/04/2023 2:31 PM EST Oxygen Saturation 93% 08/04/2023 2:31 PM EST Inhaled Oxygen Concentration - - Weight 111.9 kg (246 lb 12.8 oz) 08/04/2023 2:31 PM EST Height 172.7 cm (5' 8") 08/04/2023 2:31 PM EST Body Mass Index 37.53 08/04/2023 2:31 PM EST documented in this encounter Patient Instructions * Patient Instructions* Mayco MesserFLORENTIN villalobos - 08/04/2023 2:30 PM EST Patient Instructions - Fall Prevention (This education is for all patients over 65 regardless of symptoms) Remember to take your current medications as prescribed. In order to prevent falls, you are encouraged to: Exercise Utilize assistive/adaptive devices Avoid multifocal lenses when walking Avoid hazards in home Maintain a regular toileting schedule Any questions please contact our office. Preventing Falls in the Home (This education is for all patients over 65 regardless of symptoms) As you get older, falls are more likely. Thats because your reaction time slows. Your muscles and joints may also get stiffer, making them less flexible. Illness, medications, and vision changes can also affect your balance. A fall could leave you unable to live on your own. To make your home safer, follow these tips: Floors Put nonskid pads under area rugs Remove throw rugs Replace worn floor coverings Tack carpets firmly to each step on carpeted stairs. Put nonskid strips on the edges of uncarpeted stairs Keep floors and stairs free of clutter and cords Arrange furniture so there are clear pathways Clean up any spills right away Bathrooms Install grab bars in the tub or shower Apply nonskid strips or put a nonskid rubber mat in the tub or shower Sit on a bath chair to bathe Use bathmats with nonskid backing Lighting Keep a flashlight in each room Put a nightlight along the pathway between the bedroom and the bathroom [employer] Patient Education Copyright 2008 - 2010 [employer] except where otherwise noted Preventing Falls: Exercises to Improve Balance, Flexibility, Strength, and Staying Power (This education is for all patients over 65 regardless of symptoms) Certain types of exercises may help make you less likely to fall. Try the ones below. Or do other exercises that your healthcare provider suggests. Depending on your health, you may need to start slowly. Dont let that stop you. Even small amounts of exercise can help you. Be sure to talk to yourhealthcare provider before starting any exercise program. Improve Balance Many types of exercise can help improve balance. Ramon chi and yoga are good examples. Heres another one to try. You can do it anytime and almost anywhere. Stand next to a counter or solid support. Push yourself up onto your tiptoes. Hold for 5 seconds. If you start to lose your balance, hold on to the counter. Rest and repeat 5 times. Work up to holding for 20 to 30 seconds, if you can. Increase Flexibility Being more flexible makes it easier for you to move around safely. Try exercises like the seated hamstring stretch. Sit in a chair and put one foot on a stool. Straighten your leg and reach with both hands down either side of your leg. Reach as far down your leg as you can. Hold for about 20 seconds. Go back to the starting position. Then repeat 5 times. Switch legs. Build Strength Resistance exercises help build strength. You can do them without equipment. Or you can use weights, elastic bands, or special machines. One such exercise is called the biceps curl. You can hold a 1 pound weight or even a can of soup. Do this exercise at least 3 times a week. Strive for everyday. Sit up straight in a chair. Keep your elbow close to your body and your wrist straight. Bend your arm, moving your hand up to your shoulder. Then slowly lower your arm. Repeat 5 times. Switch to the other arm. Build Your Staying Power Aerobic exercises make your heart and lungs stronger so you can keep moving longer. Walking and swimming are two of the best types of exercises you can do. Using a stationary bike is great, too. Find an aerobic exercise that you enjoy. Start slowly and build up. Even 5 minutes is helpful. Aimfor a goal of 30 minutes, at least 3 times a week. You dont have to do 30 minutes in one session. Break it up and walk a little throughout the day. More Helpful Tips Start easy. Slowly work up to doing more. Talk with your healthcare provider about the best exercises for you. Call senior centers or health clubs about exercise programs. If needed, have a family member watch you walk every so often to check your stability. Exercise with a friend. Choose an activity you both enjoy. Try exercises that you can do anytime, anywhere. Here are two examples. Have someone with you when you first try these: Practice walking by placing one foot right in front of the other. Stand up and sit down 10 times. Repeat this throughout the day. [employer] Patient Education Copyright 2008 [employer] except where otherwise noted. Preventing Falls: Moving Safely Using a Cane or Walker (This education is for all patients over 65 regardless of symptoms) Keep the cane away from your feet so you dont trip. A walking aid, such as a cane or walker, can help you stay more independent and avoid falls. Remember to keep your walking aid within easy reach when youre in a chair or in bed. And learn how to use it safely so you dont injure yourself. Using a Cane If you have a stronger side, hold the cane on that side. Get your balance. Move the cane and your weaker leg forward. Support your weight on both the cane and your weaker side. Step with your stronger leg. Start again from step 1. If youre using a folding walker, be sure you know how to lock it open. Check that its locked open before each use. Using a Walker Roll the walker (or lift it, if youre using one without wheels) forward about 12 inches. Step forward with your weaker leg first. Use the walker to help keep your balance. Bring your other foot forward to the center of the walker. Start again from step 1. Helpful Tips Check with your healthcare provider about the right walking aid to use. Ask about a walker with a seat attached. Check the tips of your cane or walker to make sure they have nonskid covers. Move slowly from room to room. Dont meyers. Sit down to get dressed. Use a bri pack or backpack to keep your hands free. Get help for jobs that mean climbing, even on a stepstool. [employer] Patient Education Copyright 2008 - 2010 [employer] except where otherwise noted. Treating Urinary Incontinence in Men (This education is for all patients over 65 regardless of symptoms) You can't always control the release of urine. You may leak urine. Or you may not be able to hold your urine until you can get to a bathroom. This is called urinary incontinence. The problem can be managed. Talk to your doctor about your treatment options. Taking Medications Prescription medications may help you. They may: Help the sphincter to work better. (This is the muscle that closes to keep urine from leaking out of the bladder.) Help stop the bladder from traci too often to push urine out. Help the bladder muscles contract with more force. Help relax the sphincter muscle and allow urine to flow more freely. Making Changes to Your Routine Certain changes in your daily routine may help. These include: Avoiding caffeine and alcohol. Using timed voiding. This is following a schedule for drinking fluids and urinating. Doing Kegel exercises daily. These exercises involve tightening the muscles in your sphincter and around your bladder to help strengthen them. Your doctor can explain how to do them. Using a Catheter A catheter is a narrow tube that is inserted through the urethra into the bladder. It drains urine.A condom catheter covers the penis. It channels urine into a collection bag. It is worn most of thetime. Intermittent catheterization means inserting a catheter to drain the bladder, then removing it. This is done on a regular schedule. Having Surgery If other options don't work, surgery may be recommended. If surgery is an option, your healthcare provider can discuss it with you and explain its risks and benefits. Healing After Prostate Surgery Surgery on the prostate gland can cause incontinence. Most often, the incontinence is only for a short time. It clears up when healing is complete. Very rarely, prostate surgery can result in permanent incontinence. documented in this encounter Progress Notes * Alonso Daigle MD - 08/24/2023 11:44 AM EST Subjective: Almas Pack is a 67 year old male here today for Chief Complaint Patient presents with Hospital Follow-Up Pt seen for ED follow up. Seen at [facility] Ed 08/01/23. Please see that note for full details. Pt had about 1.5 weeks of nasal and sinus congestion. 1-2 days of worsening weakness, mild headache, abd tenderness. Blood work, urine, viral DIAM[place] SORTER swab, CXR, EKG, CT abd all fine. No clear answer for symptoms. [place] to be a likely viral infection and possible sinusitis. Was treated with doxycycline. Pt is feeling about the same. No worsening symptoms. Trying to rest and drink plenty of fluids. Past Medical History: Diagnosis Date Dyslipidemia, goal to be determined HTN, goal below 140/90 11/08/2014 Pulmonary Nodule 07/03 0.7 cm RLL - stable on CT 07/03, 09/03, 03/03 Type 2 diabetes mellitus with hemoglobin A1c goal of less than 7.0% (HCC) 12/05/2011 ICD-10 update of inactive term Past Surgical History: Procedure Laterality Date COLONOSCOPY, DIAGNOSTIC (RECTUM) 05/07/2018 normal, repeat 10 yrs/COLONOSCOPY FLEXIBLE PROXIMAL DIAGNOSTIC performed by Dominic Jimenez MD at ENDOSCOPY [facility] COLORECTAL CANCER SCREEN; NOT AT RISK 01/13/07 repeat in [address] CHEST W CONTRAST mediastinal LAD and 0.7 cm nodule RLL - stable 07/03,09/03,03/03 KNEE ARTHROSCOPY/MENISCECTOMY Left 07/05/2019 ARTHROSCOPY KNEE MEDIAL OR LATERAL MENISCECTOMY performed by Aspen Villalpando DO at OR [facility] REPAIR INGUINAL HERNIA, UNDER 6 MO 3 months old STRESS ECHO (EXERCISE) 06/05 nl UMBIL HERNIA REPAIR (REDUCIBLE) AGE 5+YR N/A 08/24/2018 08/24/2018 umbilical hernia repair -- [facility] DR. Ronnie Gee Review of patient's allergies indicates: No Known Allergies Current Outpatient Medications Medication Sig Dispense Refill ASPIRIN 81 MG OR TABS one tab [...] BY MOUTH EVERY DAY 90 Tablet 3 metFORMIN HCl 500 MG Oral Tablet (Glucophage) TAKE ONE TABLET BY MOUTH TWICE A DAY WITH MORNING ANDEVENING MEALS 180 Tablet 2 Fluticasone Propionate 50 MCG/ACT Nasal Suspension (Flonase) ADMINISTER 2 SPRAYS INTO EACH NOSTRIL DAILY IN THE MORNING 48 g 3 methylPREDNISolone 4 MG Oral Tablet Therapy Pack (Medrol Dosepack) follow package directions (Patient not taking: Reported on 08/01/2023) 21 Tablet 0 No current facility-administered medications for this visit. Objective: BP 138/70 | Pulse 78 | Temp 36.4 C (97.5 F) (Temporal Artery) | Resp 20 | Ht 1.727 m(5' 8") | Wt 111.9 kg (246 lb 12.8 oz) | SpO2 93% | BMI 37.53 kg/m | BSA 2.32 m GEN: NAD HEENT: PERRLA, EOMI, conjunctiva not injected or icteric. EACs clear of obstruction, inflammation, drainage. TM's normal without erythema or lesion. No fluid or infection seen in middle ear space. Nares clear of obstruction, lesion, drainage. OP without tonsillar enlargement or exudate, MMM, no lesion. NECK: Supple with no LAD, TM, JVD CHEST: CTA B CV: RRR ABD: Soft, NT/ND, No HSM, NABS EXT: No c,c,e Assessment and Plan: Generalized weakness (Primary) Viral infection -no evidence for bacterial infection on exam currently. Reviewed symptomatic treatments. Call for new or worsening symptoms. 24 min with pt and chart review Alonso Daigle MD documented in this encounter Nursing Notes * Linda Messer LPN - 08/04/2023 2:31 PM EST The patient has been properly identified by confirmation of name and date of . Chief Complaint Patient presents with Hospital Follow-Up documented in this encounter Plan of Treatment Upcoming Encounters Date Type Department Care Team (Late st Contact Info) Description 09/03/2023 7:40 AM EST Office Visit [facility] [address] [place] [facility] [place] [id number] Nisa Goodrich PA-C [address] [facility] [address] Scheduled Procedures Name Priority Associated Diagnoses Date/Ti [...] 09/12/2022, 090 05/2022, 09/24/2021, Additional history exists Lipid Panel [...] as of this encounter Visit Diagnoses Diagnosis Generalized weakness- Primary Other malaise and fatigue Viral infection Unspecified viral infection, in conditions classified elsewhere and of unspecified site Risk and functional assessment Screening for unspecified condition documented in this encounter Advance Directives Latest Code Status on File Code Status Date Activated Date Inactivated Comments Full Code 07/05/2019 10:32 AM 07/05/2019 4:23 PM This order reflects the patients wishes and were consensually agreed upon. Care Teams Mushroom Farmer Relationship Specialty Start Date End Date Alonso Daigle MD [address] [place] [address] PCP - General 08/28/01 documented as of this encounter
--- OUTSIDE RECORDS SUMMARY | 2024-02-11 23:24 | External Medical Summary | Summary of Care ---
Author Name Unknown Organization [facility] Address [address] [facility] [address] Phone [phone] Care Team Providers Care Triage Licensed Practical Nurse Name Role Phone Alonso Daigle MD Primary Care Provider +1- [phone] Encounter Details Date Type Department Care Team (Late st Contact Info) Description 08/27/2023 Telephone [facility] [address] [place] [address] Nisa Goodrich PA-C [address] [place] [address] Allergies No known active allergiesdocumented as of this encounter (statuses as of 08/27/2023) Medications Medication Sig Dispensed Refills Start Date [...] by mouth. 30 Tablet 0 08/27/2023 Active documented as of this encounter (statuses as of 08/27/2023) Active Problems Problem Noted Date Diagnosed Date [...] as of this encounter (statuses as of 08/27/2023) Resolved Problems Problem Noted Date Diagnosed Date [...] as of this encounter (statuses as of 08/27/2023) Immunizations Name Administration Dates Next Due COVID-19 mRNA, LNP-s, No Pre serve, 2-Dose Series ([employer]) 07/30/2021,11/30/2020,11/09/2020 COVID-19, MRNA-LNP, 23-24, P F, 30 MCG/0.3 mL, 12 YRS AND ABOVE, IM ([employer]) 06/30/2023 Covid-19, Mrna, Lnp-s, Pf, B ivalent, 30 Mcg, IM, 12 yrs and above ([employer]) 06/20/2022 HEP A - Hepatitis A (Adult [...] encounter Miscellaneous Notes * Telephone Encounter - Nisa Goodrich PA-C - 08/27/2023 6:43 PM EST Spoke with patient Hold statin while on med COVID-19 (Primary) - Nirmatrelvir&Ritonavir 300/100 20 x 150 MG & 10 x 100MG Oral Tablet Therapy Pack (Paxlovid (300/100)); Take 2 pink tablets of Nirmatrelvir and 1 white tablet of Ritonavir two times a day bymouth. Discussion with patient of risk and benefit of medication. also discussion of common side affects. patient counseled and is aware and wishes to purse this medication, agrees to call with any issues or concerns. Nisa Goodrich PA-C 08/27/2023 6:45 PM documented in this encounter Plan of Treatment Upcoming Encounters Date Type Department Care Team (Late st Contact Info) Description 08/28/2023 8:40 AM EST Telemedicine [place] [address] [facility] [phone] Nisa Goodrich PA-C [address] [facility] [id number] 09/03/2023 7:40 AM EST Office Visit [facility] [address] [facility] [phone] Nisa Goodrich PA-C [address] [facility] [phone] Scheduled Procedures Name Priority Associated Diagnoses Date/Ti [...] 05/05/2020, Additional history exists GFR 09/12/2023 09/12/2022, 05/2022, 09/24/2021, Additional history exists Lipid Panel [...] and were consensually agreed upon. Care Teams Triage Licensed Practical Nurse Relationship Specialty Start Date End Date Alonso Daigle MD [address] [place] [facility] [place] [address] PCP - General 08/28/01 documented as of this encounter
--- OUTSIDE RECORDS SUMMARY | 2024-02-11 23:24 | External Medical Summary | Summary of Care ---
Author Name Unknown Organization [facility] Address [address] [facility] [place] [address] Phone [phone] Care Team Providers Care Millwright Instructor Name Role Phone Alonso Daigle MD Primary Care Provider +1- [phone] Reason for Visit * Reason Comments Achiness Fatigue Congestion Fever X's 4 days. Patient states Home COVID test Positive 08/26/2023 Encounter Details Date Type Department Care Team (Late st Contact Info) Description 08/27/2023 11:40 AM EST Telemedicine General Internal Medicine [facility] [address] [facility] [place] [address] Sp Johns PA-C [address] [facility] [place] [address] COVID-19 virus infection*; HTN, goal below 140/90 Allergies No known [...] 4 Active Lisinopril 20 MG Oral Tablet (Prinivil)Indicat ions:HTN, goal below 140/90 TAKE ONE TABLET BY MOUTH EVERY DAY 90 Tablet 3 11/27/2022 4 Active metFORMIN HCl 500 MG Oral Tablet (Glucophage) TAKE ONE TABLET BY MOUTH TWICE A DAY WITH MORNING AND EVENING MEALS 180 Tablet 2 11/26/2022 4 Active Fluticasone Propionate 50 MCG/ACT Nasal Suspension (Flonase) ADMINISTER 2 SPRAYS INTO EACH NOSTRIL DAILY IN THE MORNING 48 g 3 11/17/2022 4 Active methylPREDNISolon e 4 MG Oral Tablet Therapy Pack (Medrol Dosepack)Indicati ons:Acute right-sided low back pain with right-sided sciatica,Lumbar degenerative disc disease follow package directions 21 Tablet 0 02/21/2023 3 Discontinued documented as of this encounter (statuses [...] mRNA, LNP-s, No Pre serve, 2-Dose Series ([employer]) 07/30/2021,11/30/2020,11/09/2020 COVID-19, MRNA-LNP, 23-24, P F, 30 MCG/0.3 mL, 12 YRS AND ABOVE, IM ([email or web address]) 06/30/2023 Covid-19, Mrna, Lnp-s, Pf, B ivalent, [...] as of this encounter Progress Notes * Sp Johns PA-C - 08/27/2023 11:54 AM EST Patient location: HOME. I was in a hospital or clinic location. After connecting through televideo,patient was verified with two unique identifiers. Patient (or authorized legal small business sales representative) was then informed that this was a Telemedicine visit and being conducted confidentially over secure lines. Methods to assure confidentiality were taken. Patient acknowledged consent and understanding of pr ivacy and security of the Telemedicine visit. The patient agreed to participate. Subjective: Almas P Korus is a 67 year old male. Chief Complaint Patient presents with Achiness Fatigue Congestion Fever X's 4 days. Patient states Home COVID test Positive 08/26/2023 HPI: 67 y/o male with DM II, HLD, HTN with complaint of COVID starting 4 days ago (). A lot of pressure in head and ears. Feels like he got run over. Fever of 101. Today 99. Has myalgias as well. PMH: Patient Active Problem List Diagnosis Code BMI 35-39 ISOLATED (SEE ACTUAL BMI) E66.9 Generalized osteoarthritis M15.9 Type 2 diabetes mellitus with hemoglobin A1c goal of less than 7.0% (HCC) E11.9 Dyslipidemia, goal LDL below 100 E78.5 HTN, goal below 140/90 I10 Primary osteoarthritis of left knee M17.12 Current Outpatient Medications Medication Sig Dispense Refill [...] DAILY IN THE MORNING 48 g 3 No current facility-administered medications for this visit. Review of patient's allergies indicates: No Known Allergies All other review of systems reviewed and negative other than mentioned in HPI. Objective: There were no vitals taken for this visit. Physical Exam Constitutional: General: He is not in acute distress. Appearance: Normal appearance. He is not ill-appearing or toxic-appearing. Pulmonary: Effort: No respiratory distress. Neurological: Mental Status: He is alert. ASSESSMENT: COVID-19 virus infection (Primary) - RETURN TO WORK OR SCHOOL Fully vaccinated. Do not recommend Paxlovid given this. Rotate tylenol and ibuprofen as needed. Using therafule which contains decongestant. He will check blood pressure given hx of HTN to ensurenot elevating with use. Can use Coracidin HBP which he has at the house. Discussed quarantine recommendations. Reach back out with any questions or worsening. Follow Up: Return if symptoms worsen or fail to improve. Sp Johns PA-C documented in this encounter Nursing Notes * Samaria Hercules LPN - 08/27/2023 11:51 AM EST Chief Complaint Patient presents with Achiness Fatigue Congestion Fever X's 4 days. Patient states Home COVID test Positive 08/26/2023 documented in this encounter Plan of Treatment Upcoming Encounters Date Type Department Care Team (Late st Contact Info) Description 09/03/2023 7:40 AM EST Office Visit [facility] [address] [place] [address] Nisa Goodrich PA-C [address], [place] [phone] Scheduled Procedures Name Priority Associated Diagnoses Date/Ti [...] of this encounter Visit Diagnoses Diagnosis COVID-19 virus infection- Primary HTN, goal below 140/90 Unspecified essential hypertension documented in this encounter Advance Directives Latest Code Status on File Code Status Date Activated Date Inactivated Comments Full Code 07/05/2019 10:32 AM 07/05/2019 4:23 PM This order reflects the patients wishes and were consensually agreed upon. Care Teams Millwright Instructor Relationship Specialty Start Date End Date Alonso Daigle MD [address] [place] [address] PCP - General 08/28/01 documented as of this encounter
[2024-02-12] MEDS: ONDANSETRON INJ 2 MG/ML 2 ML VIAL IV PRN (06:31)
[2024-02-12] MEDS: MAGNESIUM CITRATE 296 ML/BTL PO STA (08:31)
[2024-02-12] MEDS: bisacodyL 5 MG TABEC PO ONE (08:31)
--- NOTE | 2024-02-12 14:45 | Cardiology Progress Note ---
Date of Service February 12, 2024 Assessment & Plan (1) CAD (coronary artery disease), unga coronary artery: (2) Status post insertion of drug-eluting stent into left anterior descending (LAD) artery: (3) Chest pain: (4) Hypertension: (5) Cervical spine arthritis with nerve pain: Plan 68-year-old male admitted with chest discomfort with both cardiac and noncardiac etiologies. Discomfort significantly improved/resolved after stenting of LAD. Chronic total occlusion of right coronary artery managed medically. Continue dual antiplatelet therapy for minimum of 6 months post percutaneous intervention. Continue atorvastatin 80mg daily as ordered. Sustained ventricular tachycardia recorded during stress testing. No recurrent dysrhythmia after cardiac intervention. Add low-dose metoprolol succinate 12.5 mg daily. Postcardiac catheterization activity restrictions listed below. Cardiology will sign off at this time. Please call with additional concerns/questions. ACTIVITY RECOMMENDATIONS: It is common to feel weak and fatigue for a few days. * Do not drive or operate any motorized equipment for the next three days. * Limit stair usage (2 or 3 trips a day only) for the next three days. * Do not lift anything heavier than 10 pounds for the next three days. * Do not engage in vigorous exercise or any sports for the next five days. * You may shower the day after your procedure, but do not immerse the area for three days. Cleanse the site gently with soap and water. SPECIAL CARE INSTRUCTIONS: * You may replace the pressure dressing or band-aid the morning after the procedure. * After your procedure, it is normal to have a small bruise or small lump at the site. Examine your site daily for any change in the bruise or lump, redness, swelling, drainage or numbness. Notify your doctor if any change. BLEEDING: * If there is a small amount of bleeding at the site, lie down and apply firm pressure with a clean cloth for ten minutes. When the bleeding stops, lie quietly keeping the procedure limb straight for six hours. Notify your doctor as soon as possible. * If the bleeding does not stop after ten minutes or if there is a large amount of bleeding or spurting, call 911 immediately. Continue to lie down and hold firm pressure until help arrives. SKIN IRRITATION: * You may experience some redness and/or swelling in the area where radiation was administered. If any skin irritation occurs, please contact your family physician. FOLLOW UP VISIT: Keep any scheduled doctor appointments. Admission and Anticipated Discharge Date Admission Date: February 10, 2024 Subjective Patient seen examined the bedside. Chest discomfort resolved. Reports an episode of lightheadedness morning when bending forward. Denies overt syncope. Telemetry reveals sinus rhythm 60s-90s. No wrist discomfort, hematoma, or ecchymosis. Review of Systems Review of Systems: All systems reviewed & are unremarkable except as noted in Subjective Physical Exam Constitutional: well nourished; no acute distress and not ill appearing Respiratory: no respiratory distress, no labored breathing and no retractions Auscultation: no crackles, no rales, no rhonchi and no wheezes Cardiovascular: Rate/Rhythm: regular rate and regular rhythm Heart Sounds: normal S1 and normal S2; no murmur Vessels: femoral pulses present and radial pulses present; no JVD and no carotid bruit Extremities: no edema Gastrointestinal (Abdomen): Inspection/Auscultation: abdomen normal to inspection and normal bowel sounds; abdomen not distended Neurologic: CN's II-XI intact bilaterally and moves all extremities; no focal motor deficits Results & Data Vital Signs (Past 12 Hours) Vital Signs Temp Pulse Pulse Resp BP Pulse Ox O2 Del Method 02/12/24 11:26 36.7 C 69 16 142/74 H 96 Room Air 02/12/24 09:24 76 18 163/80 H 97 Room Air 02/12/24 07:53 36.6 C 61 18 134/68 95 Room Air 02/12/24 07:31 70 02/12/24 02:47 36.5 C 70 17 143/83 H 95 Room Air Laboratory Results Cardiac Enzymes 02/11/24 Range/Units 17:38 Troponin I High Sens 20.2 H D (0-20) pg/ml Intake and Output 02/11/24 02/12/24 02/12/24 22:59 06:59 14:59 Intake Total 250 / 2392.667 1200 / 2392.667 400 / 400 Output Total Balance 250 / 2392.667 1200 / 2392.667 399 / 399 Intake: IV 1000 / 1942.667 Sodium Chloride 0.9% 1,000 ml @ 1000 / 1942.667 80 mls/hr IV .[id number] [facility] Rx#: [id number] Oral 250 / 450 200 / 450 400 / 400 Output: # Bowel Movements 1 / Other: # Unmeasured Voids 2 2 1 Weight 116 kg Weight Measurement Method Built in [facility] (3) Chest pain Chest pain type: unspecified Qualified Code(s): R07.9 - Chest pain, unspecified (4) Hypertension Hypertension type: primary hypertension Qualified Code(s): I10 - Essential (primary) hypertension
[2024-02-12 15:58] LABS: Hematocrit (blood only) 38.7 % (42.0-52.0); Hemoglobin 13.2 g/dl (14.0-18.0); Mean Corpuscular Hemoglobin 28.5 pg (25.0-34.0); Mean Corpuscular Hgb Conc 34.1 g/dL (32.0-36.0); Mean Corpuscular Volume 83.6 fL (80.0-100.0); Mean Platelet Volume 8.8 fL (9.4-12.4); Platelet Count 277 K/uL (130-400); RDW Coefficient of Variation 15.1 % (11.5-14.5); RDW Standard Deviation 45.4 fL (36.4-46.3); Red Blood Count 4.63 M/uL (4.70-6.10); White Blood Count 7.96 K/ul (4.8-10.8)
[2024-02-12 16:07] LABS: BUN Creatinine Ratio 17.5 (10-20); Calcium 9.5 mg/dl (8.6-10.3); Creatinine Clr Calc Pharmacy 77.8 ml/min; Est GFR (African American) 76.7 ml/min; Est GFR (Non-African American) 66.2 ml/min
--- NOTE | 2024-02-12 17:07 | Discharge Summary ---
Discharge Summary Date of Service February 12, 2024 Principal Dx & Hospital Course #1 = Principal Diagnosis (1) Unstable angina pectoris due to coronary arteriosclerosis: (2) CAD (coronary artery disease), [place] coronary artery: (3) Steroid-induced gastritis: (4) Musculoskeletal chest pain: (5) Diabetes mellitus type 2 with complications: (6) High cholesterol: Plan Patient was admitted to the hospital. His troponins were trended and were negative times all sets. The patient's history is quite complicated and that it seems he had multiple sources for his chest pain. He had a history very consistent with unstable angina and angina with exertion. He also had symptoms consistent with a gastritis and reflux as well as musculoskeletal chest pain. Cardiology consultation was obtained. They proceeded with performing a d obutamine stress test. His dobutamine stress test was significantly abnormal. I proceeded to cardiac catheterization. Patient had single-vessel LAD lesion that was treated with a stent. His postcardiac cath course was uneventful. Patient has been on some steroids recently. He is placed on PPI and the steroids will be discontinued for possible gastritis as source of some of his epigastric discomfort. 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 The day of discharge his vital signs stable. A was tolerating the Brilinta and aspirin and Toprol was added to his medical regimen. He was up and ambulatory. And he was tolerating his diet. He is instructed to remain off work until he follows up with cardiology and he will be discharged home with outpatient follow-up. Notes For Next Care Provider Follow-up with cardiology Medication Changes From Visit Brilinta added due to placement of cardiac stent Toprol added for coronary artery disease Admission HPI Per Admitting Provider 68-year-old male with past medical history significant for type 2 diabetes, hyperlipidemia, hypertension, generalized osteoarthritis, cervical spondylosis, history of upper extremity weakness, chronic neck pain, comes because of chest pain and shortness of breath. Patient states today afternoon he started developing chest pain middle of the chest radiating to his both his arms very severe in nature. Associated with shortness of breath and feeling hot and clammy in hands. Enroute to hospital EMS has given 4 nitros that did not help much the pain and in ER morphine was given which brought down the pain to 6/10 in severity. He was also nauseous and required Zofran. When EMS came he was having a lot of headache. Currently headache is much improved. He is also feel ing dizzy when he is standing up. States had this kind of pain before but used to subside with TUMS but today it was not improving. Yesterday went to PCP because of possible food poisoning from chicken he ate on Friday and he was hurting everywhere. And for possible viral illness he was given prednisone. And also Zofran for nausea. Patient is also on naproxen for his chronic cervical spine pain. Patient states in the winter when he was shoveling and try to do it all at one time used to get chest pains and had to stop and take couple of breaths. Seems also getting chest pains on exertion. Has some pressure feeling in ears.. Vision is somewhat blurry. No runny nose or sore throat or cough. Patient seems to having abdominal pain.. Normal bowel and bladder movements. No swelling the legs. He does not sleep well. Patient states otherwise he is very active. Currently hemodynamics are okay. Family in the room.Patient is able to give the history. Past medical history. As mentioned above. Past surgical history. Colonoscopy. Left knee arthroscopy. Inguinal hernia repair umbilical hernia repair social history. . Quit smoking 2001. Smoked 1 pack a day for 30 years. Alcohol rarely. No drug use. Family history. Brother had prostate cancer. Father had prostate cancer. CABG. Mother had a stroke. Admission Exam Per Admitting Provider See H&P Discharge Exam Constitutional: Alert HEENT: Mucous membranes moist. Lungs: Clear to auscultation, decreased, no wheezes rales or rhonchi CV: S1-S2, regular Abdomen: Soft, nontender, nondistended, groin soft, minimal ecchymosis Extremities: No significant edema Neuro: No focal deficits Psych: Cooperative, normal mood Updated Medication List Medication Instructions Recorded Confirmed Type aspirin 81 mg tablet,delayed 81 mg PO QDD 08/13/18 02/10/24 History release (Nga Low Dose Aspirin) atorvastatin 80 mg tablet 80 mg PO HS 08/13/18 02/10/24 History fexofenadine 180 mg tablet 180 mg PO QDD 08/13/18 02/10/24 History fluticasone propionate 50 1 spray intranasal QAM 08/13/18 02/10/24 History mcg/actuation nasal spray,suspension (Flonase Allergy Relief) lisinopril 20 mg tablet 20 mg PO QPM 08/13/18 02/10/24 History magnesium 250 mg tablet 250 mg PO QDD 08/13/18 02/10/24 History metformin 500 mg tablet 500 mg PO BIDM 08/13/18 02/10/24 History multivitamin 1 tab PO QAM 08/13/18 02/10/24 History omega 4-ori-gnr-fish oil 1,000 mg 1 cap PO .QLUNCH 08/13/18 02/10/24 History (120 mg-180 mg) capsule (Fish Oil) potassium gluconate 550 mg (90 mg) 550 mg PO QDD 08/13/18 02/10/24 History tablet diclofenac sodium 1 % topical gel 1 g topical QID 02/10/24 02/10/24 History (Voltaren Arthritis Pain) esomeprazole magnesium 20 mg 20 mg PO DAILYBB 02/10/24 02/10/24 History capsule,delayed release (Nexium) methylcellulose (laxative) 500 mg 500 mg PO DAILY 02/10/24 02/10/24 History tablet (Citrucel) semaglutide 3 mg tablet (Rybelsus) 3 mg PO DAILY 02/10/24 02/10/24 History semaglutide 7 mg tablet (Rybelsus) 7 mg PO .DAILY DIRECTED 02/10/24 02/10/24 History vit C 250 mg-vit E 90 mg-zinc 40 1 tab PO BID 02/10/24 02/10/24 History mg-copper 1 ds-scudcc-kppryj capsule (PreserVision AREDS-2) metoprolol succinate 25 mg 12.5 mg (1/2 x 25 mg) PO QAM #30 02/12/24 Rx tablet,extended release 24 hr tabs ticagrelor 90 mg tablet (Brilinta) 90 mg PO BID #30 tabs 02/12/24 Rx Hospital Stay Data Consultations 02/10/24 18:43 ED Decision to Admit Stat 02/11/24 08:00 Consult Cardiology Routine 02/11/24 16:06 Consult Cardiac Rehabilitation Routine Procedures Performed Operation Date: 02/11/24 14:00 Actual Procedures s Cineradiography w/Routine Exam - William Snider DO p Cath, Left with Cors and Vent - William Snider DO p Drug Eluting Stent SGl Vessel - Mickey Cagle MD, PhD s Fraction Flow [place] SGL Ves - Mickey Cagle MD, PhD Diagnostic Imagining Performed 02/10/24 16:33 US gallbladder Stat 02/11/24 13:39 Cath Imgs for PACS use only Routine Reviewed imaging, laboratory and diagnostic studies. Pertinent findings as below. Stress test showed evidence of ischemia Cardiac cath with region of the LAD Hemoglobin 13.2 on day of discharge Electrolytes within normal range, creatinine 1.14 Glucose 152 Pending Results Patient Have Any Pending Studies at Discharge: No Discharge Instructions Given to Patient (Per Discharging Provider) Do not return to work until cleared by cardiology Total Time Total Time Spent Total Time Spent (In Minutes): 36
--- NOTE | 2024-02-12 17:42 | Electrocardiogram Report ---
Test Reason : Blood Pressure : / mmHG Vent. Rate : 068 BPM Atrial Rate : 068 BPM P-R Int : 220 ms QRS Dur : 100 ms QT Int : 398 ms P-R-T Axes : 064 -51 027 degrees QTc Int : 423 ms Sinus rhythm with 1st degree A-V block Left axis deviation Abnormal ECG When compared with ECG of 11-FEB-2024 16:17, QT has lengthened Confirmed by Chacorta Whittington ([id number]) on 02/12/2024 5:41:50 PM Referred By: REFERRED SELF Confirmed By:Stan Whittington
[2024-02-13] MEDS ORDERED: METOPROLOL SUCC 25MG EXT REL TAB PO SCH (09:00)
--- OUTSIDE RECORDS SUMMARY | 2024-02-13 22:18 | External Medical Summary | Summary of Care ---
Author Name Unknown Organization [facility] Address [address] [place] [address] Phone [phone] Care Team Providers Care Special Service Representative Name Role Phone Alonso Daigle MD Primary Care Provider [phone] Encounter Details Date Type Department Care Team (Late st Contact Info) Description 02/11/2024 Result Scan Unspecified Department <No scans attached> Allergies No known active allergiesdocumented as of this encounter (statuses as of 02/12/2024) Medications Medication Sig Dispensed Refills Start Date [...] Active Fexofenadine HCl 180 MG Oral Tablet (Amairani)Indications :Chronic rhinitis Take 1 Tab by mouth daily. 90 Tab 3 04/07/2021 Active Montelukast Sodium 10 MG Oral Tablet (Singulair)Indicatio ns:COVID-19 Take 1 Tablet by mouth in the [...] breakfast. Active Lisinopril 20 MG Oral Tablet (Prinivil)Indication s:HTN, goal below 140/90 TAKE ONE TABLET BY [...] 12/15/2024 Active Semaglutide 7 MG Oral Tablet (Rybelsus)Indication s:Type 2 diabetes mellitus with hemoglobin A1c goal of less than 7.0% (HCC) Take 7 mg by mouth daily first thing in the morning. Take 30 minutes before food and other medications. 90 Tablet 1 01/20/2024 Active Rybelsus 3 MG Oral Tablet (Semaglutide)Indicat ions:Type 2 diabetes mellitus with hemoglobin A1c goal of less than 7.0% (HCC) Take 3 mg by mouth daily first thing in the morning. Take 30 minutes before food and other medications. Take 3mg for 30 days then increase to 7mg tablets. 30 Tablet 01/20/2024 Active Naproxen 500 MG Oral Tablet (Naprosyn)Indication s:Chronic pain of both shoulders,Cervical spine pain Take 1 Tablet by mouth in the morning and 1 Tablet before bedtime. With food.. 60 Tablet 5 02/09/2024 Active Ondansetron 4 MG Oral Tablet Disintegrating (Zofran)Indications: Nausea Place 1 Tablet on tongue every 8 hours as needed for Nausea. dissolve on tongue. 20 Tablet 02/09/2024 Active predniSONE 10 MG Oral Tablet (Deltasone)Indicatio ns:Viral illness Take 5 tabs for 2 days, 4 tabs for 2 days, 3 tabs for 2 days, 2 tabs for 2 days 1 tab for 2 days 30 Tablet 02/09/2024 Active documented as of this encounter (statuses as of 02/12/2024) Active Problems Problem Noted Date Diagnosed Date [...] as of this encounter (statuses as of 02/12/2024) Resolved Problems Problem Noted Date Diagnosed Date [...] as of this encounter (statuses as of 02/12/2024) Immunizations Name Administration Dates Next Due COVID-19 mRNA, LNP-s, No Pre serve, 2-Dose Series (Gamelet) 07/30/2021,11/30/2020,11/09/2020 COVID-19, MRNA-LNP, 23-24, P F, 30 MCG/0.3 mL, 12 YRS AND ABOVE, IM (8eighty Wear-ComirnatInVision) 06/30/2023 Covid-19, Mrna, Lnp-s, Pf, B ivalent, [...] Description 02/16/2024 7:40 AM EDT [facility] [address] [id number] Ellie Hurtado [address] [place] [address] 02/16/2024 8:00 AM EDT Office Visit Ophthalmology, [address] [place] [address] Brandt Washington, DO [address] [place] [address] 02/16/2024 8:30 AM EDT Office Visit Pharmacy, [facility] [address] [facility] [place] [address] [facility] [address] [place] [address] 02/26/2024 8:40 AM EDT NeuroDiagnostic Study Neurophysiology [facility] [address] [facility] [place] [address] Ralph Torrez DO [address] [place] [address] 03/12/2024 8:30 AM EDT Office Visit [facility]edics [facility] [address] [place] [address] Kleber Batres MD [address] [address] [place] [address] 09/06/2024 11:00 AM EST Office Visit [facility] [address] [place] [address] Nisa Goodrich PA-C [address] [place] [address] Scheduled Procedures Name Priority Associated Diagnoses Date/Ti [...] 07/30/2021, Additional history exists HbA1c 07/18/2024 01/16/2024, 020 03/2024, 09/12/2022, Additional history exists Diabetic Foot Exam 09/03/2024 09/03/2023, 0 02/09/2021, 10/05/2018, Additional history exists Diabetic Eye Exam 10/07/2024 10/07/2023, 09/08/2020 Albumin/Creatinine Ratio 10/08/2024 024, 05/10/2022, 09/24/2021, Additional history exists B-12 10/08/2024 10/08/2023, 09/0 05/2022, 02/09/2021, Additional history exists GFR 10/08/2024 10/08/2023, 09/01, 05/10/2022, Additional history exists Colonoscopy 05/07/2028 05/07/2018, 09/0 01/2018, 01/13/2007 Colorectal Cancer Screening 05/07/2028 Lipid [...] Procedure Name Priority Date/Time Associated Diagnosis Comments CARDIAC CATH SCANNED RESULT 02/11/2024 documented in this encounter Results * CARDIAC CATH SCANNED RESULT (02/11/2024) 02/11/2024 No Physician Data Unknown CARD CATH documented in this encounter Advance Directives * Full Code (Latest Code Status on File) Date Activated Date Inactivated Comments 07/05/2019 10:32 AM 07/05/2019 4:23 PM This order reflects the patients wishes and were consensually agreed upon. Care Teams Special Service Representative Relationship Specialty Start Date End Date Alonso Daigle MD [address] [place] [address] PCP - General 08/28/01 documented as of this encounter
== END 2024-02-12 18:00 | disposition home or self-care (01) ==
LOC: 2N 16:13 → ED 16:13 → SUATTDRO 20:34 → 2N 21:28 → 2S 02-11 15:23

== ENCOUNTER 2024-04-21 13:25 | Inpatient (IN) ==
--- NOTE | 2024-04-21 13:36 | Emergency Department Note ---
Impression & Plan Chest pain, GI bleeding ED Provider Note NAME: LEANDER SWANSON AGE: 68 SEX: M : 1955 ARRIVES VIA: Ambulance INFORMANT: Patient, ED PROVIDER(S): Juarez Goncalves MD CHIEF COMPLAINT: Chest pain, rectal bleeding MEDICAL DECISION MAKING: Patient presents due to concern for rectal bleeding as well as outpatient blood work done at cardiac rehab which showed a lower hemoglobin. IV was established and blood work was obtained. Patient did have an EKG performed along with a troponin. Chest x-ray also performed. Blood work shows a normal white count with hemoglobin 11.7 which has down trended some. Platelet count is unremarkable. The patient's kidney function is unremarkable. Protonix bolus and drip ordered. The patient was still having pain so the patient was ordered IV morphine. I did speak with the on-call hospitalist service Brenna Patel PA-C and the patient was admitted by Dr. Stanton after discussing the findings and recommendations with the patient. Patient and patient's at bedside were comfortable plan of care. Discussion w/ other healthcare providers: Brenna Patel PA-C and Dr. Stanton Prior /Outside records reviewed: None Differential diagnosis: Cardiac ischemia, aortic dissection, pulmonary embolism, pneumothorax, pneumonia, pericarditis, myocarditis, GERD, cholecystitis, pancreatitis, musculoskeletal, as well as other pathologies were considered. Diagnostics, as interpreted by me: ECG: Sinus with first-degree AV block, rate of 76, prolonged SD, left axis deviation, T wave flattening in V2. No significant change for comparison February 12, 2024. Cardiac monitoring: An order was placed for continuous cardiac monitoring. The monitor shows a rate of 75 with sinus rhythm. Patient was placed on pulse oximetry Medical decision rules: None Imaging studies: I informally interpreted the patient's Chest x-ray does not show evidence of obvious pneumonia or pneumothorax with formal report to follow. HPI: Patient presents due to concern for chest tightness. The patient states that he has been having chest tightness over the last several weeks. The patient reports that he has had some rectal bleeding with some associated dark blood noted in the stool. Patient states that he did have a colonoscopy in 2018 no reported concerning findings at that time. The patient is on aspirin and Plavix and was recently transition from Brilinta to Plavix. Patient does follow with cardiology for the stent that was placed back in January. Patient states that chest tightness is centralized sometimes will be in the left chest and sometimes will travel to the arm and neck. Patient denies any falls or trauma. Patient was at cardiac rehab and did have some blood work and was reported to be lower than normal. Patient believes that he has had a bleeding ever since he had his procedure back in January. Patient denies any cough or fever no shortness of breath. The patient has noted some bilateral lower extremity swelling. PAST MEDICAL HISTORY: See Below PAST SURGICAL HISTORY: See Below SOCIAL HISTORY: See Below HOME MEDICATIONS: See Below ALLERGIES: See Below VITALS: See Below PHYSICAL EXAMINATION: GENERAL: NAD, non-toxic. Wearing glasses. EYE EXAM: Normal conjunctiva. PERRL, no anisocoria and EOM's grossly intact w/o pain. OROPHARYNX: Moist mucus membranes, grossly normal dentition. NECK: Trachea midline, no stridor. LUNGS: Clear to auscultation. Normal chest wall mechanics. HEART: NSR, no MRG. ABDOMEN: Abdomen soft, non-tender, no masses, no rebound or guarding. BACK: No CVA TTP. SKIN: No rashes and no bruising. UPPER EXTREMITIES: Upper extremities are grossly normal. LOWER EXTREMITIES: Grossly normal, mild bilateral swelling without asymmetry. NEURO EXAM: A&O x3, cranial nerves II-XII grossly intact, normal speech, moves all 4 extremities. Past Med/Surg History Problem List (Updated 04/22/24 @ 16:38 by Juarez Goncalves MD) Diarrhea GI bleeding (Acute) Blood in stool Peripheral neuropathy Status post insertion of drug-eluting stent into left anterior descending (LAD) artery CAD (coronary artery disease), [place] coronary artery Diabetes mellitus type 2 with complications Musculoskeletal chest pain CAD (coronary artery disease), [place] coronary artery Steroid-induced gastritis Unstable angina pectoris due to coronary arteriosclerosis Cervical spine arthritis with nerve pain Hypertension Chest pain (Acute) Medical History Finger avulsion middle right finger and reattached Non-insulin dependent type 2 diabetes mellitus Obesity (BMI 35.0-39.9 without comorbidity) Diabetes Seasonal allergies High cholesterol Surgical History Hx of colonoscopy Hx of hernia repair as child Social History Smoking Status: Former smoker Tobacco Type: Cigarettes Second Hand Exposure: No; Do You Dip or Chew Tobacco: No; Hx Alcohol Use: Yes Alcohol type: beer Hx Substance Use: No Preferred Language: Jamaican Communication Ability: Effective Conche Operator Required: No Beliefs That Will Affect Care: None Current Living Situation: Spouse Current Living Situation Comment: lives at home with Lindy 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 Feels Safe at Home: Yes and No Is there a partner from a previous relationship who is making you feel unsafe now?: No Assistive Devices: Glasses Allergies Allergies Allergy/AdvReac Type Severity Reaction Status Date / Time No Known Allergies Allergy Unknown Verified 04/21/24 16:21 Home Meds Home Medications Medication Instructions Recorded Confirmed aspirin 81 mg tablet,delayed 81 mg PO QDD 08/13/18 04/21/24 release (Nga Low Dose Aspirin) atorvastatin 80 mg tablet 80 mg PO HS 08/13/18 04/21/24 fexofenadine 180 mg tablet 180 mg PO QDD 08/13/18 04/21/24 fluticasone propionate 50 2 spray intranasal QAM 08/13/18 04/21/24 mcg/actuation nasal spray,suspension (Flonase Allergy Relief) lisinopril 20 mg tablet 20 mg PO QPM 08/13/18 04/21/24 magnesium 250 mg tablet 250 mg PO QDD 08/13/18 04/21/24 multivitamin 1 tab PO QAM 08/13/18 04/21/24 omega [id number]-fish oil 1,000 mg 1 cap PO DAILY 08/13/18 04/21/24 (120 mg-180 mg) capsule (Fish Oil) potassium gluconate 550 mg (90 mg) 550 mg PO QDD 08/13/18 04/21/24 tablet diclofenac sodium 1 % topical gel 1 g topical QID 02/10/24 04/21/24 (Voltaren Arthritis Pain) esomeprazole magnesium 20 mg 20 mg PO DAILYBB 02/10/24 04/21/24 capsule,delayed release (Nexium) semaglutide 7 mg tablet (Rybelsus) 7 mg PO QAM 02/10/24 04/21/24 vit C 250 mg-vit E 90 mg-zinc 40 1 tab PO BID 02/10/24 04/21/24 mg-copper 1 [id number] capsule (PreserVision AREDS-2) clopidogrel 75 mg tablet 75 mg PO QAM 04/21/24 04/21/24 ezetimibe 10 mg tablet 10 mg PO QAM 04/21/24 04/21/24 isosorbide mononitrate 30 mg 15 mg PO QAM 04/21/24 04/21/24 tablet,extended release 24 hr metformin 1,000 mg tablet 1,000 mg PO BIDWMEAL 04/21/24 04/21/24 montelukast 10 mg tablet 10 mg PO QAM 04/21/24 04/21/24 Previous Rx's Medication Instructions Recorded gabapentin 100 mg capsule 100 mg PO HS #30 caps 02/12/24 metoprolol succinate 25 mg 12.5 mg (1/2 x 25 mg) PO QAM #30 02/12/24 tablet,extended release 24 hr tabs Results & Data (ED) Vital Signs Vital Signs - 24 hr 04/21/24 13:31 04/21/24 13:40 04/21/24 14:07 Temperature 36.7 C Temperature Source Skin Pulse Rate 79 77 Pulse Rate [Apical] Respiratory Rate 18 Blood Pressure 131/73 Blood Pressure [Right Arm] Blood Pressure Mean 92 Blood Pressure Mean [Right Arm] Pulse Oximetry 97 93 Oxygen Delivery Method Room Air Room Air Room Air Sepsis Recent Fever Within 48 Hours No Sepsis New/Unexplained Change in Mental Status No Sepsis Action Taken by Nursing No Action Required 04/21/24 14:47 04/21/24 14:59 Temperature Temperature Source Pulse Rate 79 Pulse Rate [Apical] 74 Respiratory Rate 18 Blood Pressure Blood Pressure [Right Arm] 120/62 Blood Pressure Mean Blood Pressure Mean [Right Arm] 81 Pulse Oximetry 95 Oxygen Delivery Method Room Air Sepsis Recent Fever Within 48 Hours Sepsis New/Unexplained Change in Mental Status Sepsis Action Taken by Longterm Medications Current Medication List: was personally reviewed by me Laboratory Data Attestation: I reviewed the patient's lab results. 04/22/24 06:55 04/22/24 06:55 Lab Results 04/21/24 Range/Units 14:44 WBC 6.18 (4.8-10.8) K/ul RBC 4.12 L (4.70-6.10) M/uL Hgb 11.7 L (14.0-18.0) g/dl Hct 34.6 L (42.0-52.0) % MCV 84.0 (80.0-100.0) fL MCH 28.4 (25.0-34.0) pg MCHC 33.8 (32.0-36.0) g/dL RDW Std Deviation 45.9 (36.4-46.3) fL RDW Coeff of Dragan 14.9 H (11.5-14.5) % Plt Count 253 (130-400) K/uL MPV 8.9 L (9.4-12.4) fL Immature Gran % (Auto) 0.5 % Neut % (Auto) 56.6 % Lymph % (Auto) 26.4 % [place] % (Auto) 13.1 % Eos % (Auto) 2.6 % Baso % (Auto) 0.8 % Neut # (Auto) 3.50 (1.40-6.50) K/uL Lymph # (Auto) 1.63 (1.20-3.40) K/uL [place] # (Auto) 0.81 H (0.11-0.59) K/uL Eos # (Auto) 0.16 (0.00-0.50) K/uL Baso # (Auto) 0.05 (0.00-0.20) K/uL Immature Gran # (Auto) 0.03 (0.01-0.20) K/uL PT 11.3 (9.0-12.0) Seconds INR 1.0 (0.9-1.1) APTT 27 (21-31) Seconds PTT Ratio 1.0 Sodium 138 (136-145) mmol/L Potassium 4.4 (3.5-5.1) mmol/L Chloride 106 (98-107) mmol/L Carbon Dioxide 28 (21-32) mmol/L Anion Gap 4 (3-11) BUN 20 (6-23) mg/dl Creatinine 1.13 (0.6-1.4) mg/dl Est Cr Clr Drug Dosing Not Reportable Est GFR ( Amer) 77.5 ml/min Est GFR (Non-Af Amer) 66.9 ml/min BUN/Creatinine Ratio 17.7 (10-20) Glucose 159 H (70-99(Fasting)) mg/dl Calcium 8.7 (8.6-10.3) mg/dl Total Bilirubin 0.7 (0.2-1.0) mg/dl AST 16 (13-39) U/L ALT 19 (7-52) U/L Alkaline Phosphatase 70 (34-104) U/L Troponin I High Sens 3.7 (0-20) pg/ml Total Protein 6.2 (6.0-8.3) gm/dl Albumin 4.0 (3.4-5.0) gm/dl Globulin 2.2 L (2.5-4.0) gm/dl Albumin/Globulin Ratio 1.8 (0.9-2) Administered Medications Atorvastatin Calcium (Atorvastatin 40 Mg Tab) [address] [facility] Stop: 05/21/24 20:59 Last Admin: 04/21/24 20:43 Dose: 80 mg Documented By: ILANA Clopidogrel Bisulfate (Clopidogrel Bisulfate 75 Mg Tab) 75 mg PO [facility] Stop: 05/22/24 08:59 Last Admin: 04/22/24 08:15 Dose: 75 mg Documented By: JEFF [facility]etim[facility] ([facility] 10 Mg Tab) [facility] [place]: 05/22/24 08:59 Last Admin: 04/22/24 08:15 Dose: 10 mg Documented By: JEFF Fish Oil (Arabi-3 (Purified Fish Oil) 1 Gm Cap) 1 gm PO DAILY KAREN Stop: 05/22/24 08:59 Last Admin: 04/22/24 09:59 Dose: 1 gm Documented By: JEFF Fluticasone Propionate (Fluticasone Propionate Na Spr 16 Gm Btl) 2 sprays NA QAM KAREN Stop: 05/22/24 08:59 Last Admin: 04/22/24 08:16 Dose: 2 sprays Documented By: JEFF Gabapentin (Gabapentin 100 Mg Cap) [address] [facility] Stop: 05/21/24 20:59 Last Admin: 04/21/24 20:43 Dose: 100 mg Documented By: ILANA Hydromorphone HCl (Hydromorphone Inj 1 Mg/Ml Syringe) 1 mg IV Q4H PRN PRN Reason: Pain Stop: 05/05/24 22:51 Last Admin: 04/21/24 23:11 Dose: 1 mg Documented By: HERIBERTO Pantoprazole Sodium 40 mg/ (Dextrose) 100 mls @ 20 mls/hr IV Q5H [facility] Stop: 05/21/24 16:29 Last Admin: 04/22/24 14:23 Dose: 8 mg/hr, 20 mls/hr Documented By: Infusion: 04/22/24 14:20 Dose: Infused Documented By: WRSonja Admin: 04/22/24 09:59 Dose: 8 mg/hr, 20 mls/hr Documented By: Infusion: 04/22/24 08:04 Dose: Infused Documented By: Admin: 04/22/24 02:55 Dose: 8 mg/hr, 20 mls/hr Documented By: Infusion: 04/22/24 02:55 Dose: Infused Documented By: Admin: 04/21/24 22:32 Dose: 8 mg/hr, 20 mls/hr Documented By: Infusion: 04/21/24 22:14 Dose: Infused Documented By: Admin: 04/21/24 17:14 Dose: 8 mg/hr, 20 mls/hr Documented By: ILANA Insulin Aspart (Insulin Aspart Per Unit Charge) 0 units SC ACHS KAREN Stop: 05/21/24 20:59 Last Admin: 04/22/24 13:09 Dose: Not Given Documented By: Admin: 04/22/24 08:28 Dose: Not Given Documented By: Admin: 04/21/24 20:23 Dose: Not Given Documented By: GEOVANYJ Lisinopril (Lisinopril 20 Mg Tab) 20 mg PO QPM [facility] Stop: 05/21/24 20:59 Last Admin: 04/21/24 20:43 Dose: 20 mg Documented By: ILANA Melatonin (Melatonin 3 Mg Tab) 6 mg PO HS PRN PRN Reason: Sleep Stop: 05/22/24 02:44 Last Admin: 04/22/24 02:52 Dose: 6 mg Documented By: [facility] Metoprolol Succinate (Metoprolol Succ 25mg Ext Rel Tab) 12.5 mg PO QAM KAREN Stop: 05/22/24 08:59 Last Admin: 04/22/24 08:16 Dose: 12.5 mg Documented By: JEFF Montelukast Sodium (Montelukast Sodium 10 Mg Tablet) 10 mg PO QAM [facility] Stop: 05/22/24 08:59 Last Admin: 04/22/24 09:59 Dose: 10 mg Documented By: JEFF Multivitamins (Multivitamin Tab) 1 tab PO QAM KAREN Stop: 05/22/24 08:59 Last Admin: 04/22/24 08:17 Dose: 1 tab Documented By: JEFF Oxycodone HCl (Oxycodone Hcl Ir 5 Mg Tab (Immediate Release)) 5 - 10 mg PO QID PRN PRN Reason: Pain Stop: 05/05/24 22:51 Last Admin: 04/22/24 10:19 Dose: 10 mg Documented By: Admin: 04/22/24 02:52 Dose: 5 mg Documented By: HERIBERTO Discontinued Medications Sodium Chloride (Nss) 500 mls @ 999 mls/hr IV .Q31M KAREN Stop: 04/21/24 14:45 Last Infusion: 04/21/24 15:34 Dose: Infused Documented By: Admin: 04/21/24 15:03 Dose: 999 mls/hr Documented By: ILANA Pantoprazole Sodium 80 mg/ (Dextrose) 120 mls @ 480 mls/hr IV NOW ONE Stop: 04/21/24 16:28 Last Infusion: 04/21/24 17:14 Dose: Infused Documented By: Admin: 04/21/24 16:59 Dose: 480 mls/hr Documented By: ILANA Magnesium Sulfate/Dextrose (Magnesium Sulfate / D5w) 1 gm in 100 mls @ 50 mls/hr IV Q2H KAREN Stop: 04/22/24 13:44 Last Infusion: 04/22/24 16:31 Dose: Infused Documented By: Admin: 04/22/24 14:24 Dose: 50 mls/hr Documented By: Infusion: 04/22/24 14:16 Dose: Infused Documented By: Infusion: 04/22/24 12:17 Dose: 50 mls/hr Documented By: Infusion: 04/22/24 10:12 Dose: 0 mls/hr Documented By: Admin: 04/22/24 10:10 Dose: 50 mls/hr Documented By: JEFF Isosorbide Mononitrate (Isosorbide [place] Extended Rel 30 Mg Tabcr) 15 mg PO QAM [facility] Stop: 05/22/24 08:59 Last Admin: 04/22/24 08:16 Dose: 15 mg Documented By: JEFF Isosorbide Mononitrate (Isosorbide [place] Extended Rel 30 Mg Tabcr) 15 mg PO ONE ONE Stop: 04/22/24 11:58 Last Admin: 04/22/24 12:19 Dose: Not Given Documented By: JEFF Morphine Sulfate (Morphine Sulfate 4 Mg/Ml 1 Ml Carp\Vial) 4 mg IV NOW STA Stop: 04/21/24 17:07 Last Admin: 04/21/24 17:14 Dose: 4 mg Documented By: ILANA Pantoprazole Sodium (Pantoprazole Bolus/Drip) 1 each IV NOW STA Stop: 04/21/24 16:15 Last Admin: 04/21/24 17:18 Dose: 1 each Documented By: ILANA Imaging Data Radiologist's Impression: Chest X-Ray 04/21/24 14:37 XR chest 1V portable HISTORY: chest pain COMPARISON: Chest 02/10/2024. FINDINGS: No pneumothorax. No pleural effusions. A few bibasilar linear densities favor subsegmental atelectasis or scarring. No new focal lung consolidations to suggest a pneumonia. No evidence for pulmonary edema. The heart is mildly enlarged. Stable prominence of the central pulmonary arteries. Calcifications within the aortic knob. No acute fractures. IMPRESSION: No acute process. ACT 112: Negative or not required by law. Electronically signed by: Kulwant Martinez M.D. 04/21/2024 3:52 PM Discharge Plan Visit Data Chief Complaint: Chest Pain Stated Complaint: CHEST PAIN, LOW H&H ED Provider: Juarez Goncalves Discharge Problem: Chest pain, GI bleeding Patient Disposition: Admitted As Inpatient Discharge Instructions Interventions: ED Discharge Assessment Last Done: 04/21/24 18:39 Discharge Problem: Chest pain Qualifiers: Chest pain type: unspecified Qualified Code(s): R07.9 - Chest pain, unspecified GI bleeding Qualifiers: GI bleed type/associated pathology: unspecified gastrointestinal hemorrhage type Qualified Code(s): K92.2 - Gastrointestinal hemorrhage, unspecified
--- NOTE | 2024-04-21 14:33 | Electrocardiogram Report ---
Test Reason : Blood Pressure : */* mmHG Vent. Rate : 76 BPM Atrial Rate : 76 BPM P-R Int : 222 ms QRS Dur : 92 ms QT Int : 368 ms P-R-T Axes : 59 -57 30 degrees QTcB Int : 414 ms Sinus rhythm with 1st degree A-V block Left anterior fascicular block Abnormal ECG When compared with ECG of 12-Feb-2024 05:39, No significant change was found Confirmed by Earnest Amaro ([id number]) on 04/21/2024 2:33:36 PM Referred By: Confirmed By: Earnest Amaro
[2024-04-21 15:03] LABS: Basophils # (auto) 0.05 K/uL (0.00-0.20); Basophils % (auto) 0.8 %; Eosinophils # (auto) 0.16 K/uL (0.00-0.50); Eosinophils % (auto) 2.6 %; Hematocrit (blood only) 34.6 % (42.0-52.0); Hemoglobin 11.7 g/dl (14.0-18.0); Immature Granulocytes # (auto) 0.03 K/uL (0.01-0.20); Immature Granulocytes % (auto) 0.5 %; Lymphocytes # (auto) 1.63 K/uL (1.20-3.40); Lymphocytes % (auto) 26.4 %; Mean Corpuscular Hemoglobin 28.4 pg (25.0-34.0); Mean Corpuscular Hgb Conc 33.8 g/dL (32.0-36.0); Mean Platelet Volume 8.9 fL (9.4-12.4); Monocytes # (auto) 0.81 K/uL (0.11-0.59); Monocytes % (auto) 13.1 %; Neutrophils % (auto) 56.6 %; Platelet Count 253 K/uL (130-400); RDW Coefficient of Variation 14.9 % (11.5-14.5); RDW Standard Deviation 45.9 fL (36.4-46.3); Red Blood Count 4.12 M/uL (4.70-6.10); White Blood Count 6.18 K/ul (4.8-10.8)
[2024-04-21] MEDS: SODIUM CHLORIDE 0.9% 500 ML IV SCH (15:03)
[2024-04-21 15:20] LABS: Alanine Aminotransferase 19 U/L (7-52); Albumin Globulin Ratio 1.8 (0.9-2); Alkaline Phosphatase 70 U/L (34-104); Anion Gap 4 (3-11); Aspartate Aminotransferase 16 U/L (13-39); BUN Creatinine Ratio 17.7 (10-20); Bilirubin,Total 0.7 mg/dl (0.2-1.0); Blood Urea Nitrogen 20 mg/dl (6-23); Calcium 8.7 mg/dl (8.6-10.3); Carbon Dioxide 28 mmol/L (21-32); Chloride 106 mmol/L (98-107); Est GFR (African American) 77.5 ml/min; Est GFR (Non-African American) 66.9 ml/min; Globulin 2.2 gm/dl (2.5-4.0); Glucose 159 mg/dl (70-99(Fasting)); Potassium 4.4 mmol/L (3.5-5.1); Sodium 138 mmol/L (136-145); Total Protein 6.2 gm/dl (6.0-8.3)
[2024-04-21 15:26] LABS: Troponin I High Sensitivity 3.7 pg/ml (0-20)
[2024-04-21 15:38] LABS: Partial Thromboplastin Time 27 Seconds (21-31); Prothrombin Time 11.3 Seconds (9.0-12.0)
--- NOTE | 2024-04-21 15:53 | XRay Report ---
XR chest 1V portable HISTORY: chest pain COMPARISON: Chest 02/10/2024. FINDINGS: No pneumothorax. No pleural effusions. A few bibasilar linear densities favor subsegmental atelectasis or scarring. No new focal lung consolidations to suggest a pneumonia. No evidence for pul monary edema. The heart is mildly enlarged. Stable prominence of the central pulmonary arteries. Calc ifications within the aortic knob. No acute fractures. IMPRESSION: No acute process. ACT 112: Negative or not required by law. Electronically signed by: Kulwant Martinez M.D. 04/21/2024 3:52 PM
--- NOTE | 2024-04-21 16:33 | History & Physical Report ---
Date of Service April 21, 2024 Assessment & Plan (1) Chest pain: (2) Blood in stool: Plan Almas Pack is a 68y/o M with PMHx of DM type II, dyslipidemia, HTN, CAD s/p PCI of the LAD using a single AMY [02/11/2024], osteoarthritis and other problems listed below who presented to the ED for evaluation secondary to chest pain and bloody diarrhea. Most recent confinement 02/09 to 02/11 here at [facility]. Presented with complaints of epigastric and chest pain radiating down both arms. EKG demonstrated normal sinus rhythm without ischemic changes. High sensitivity troponin was negative x 3. Patient subsequently underwent dobutamine stress echocardiogram which was positive for inferior wall ischemia. He also had sustained VT with dobutamine infusion. Patient was subsequently sent for diagnostic cardiac catheterization revealing 100% OIL FILTERS INSPECTOR of the RCA and 80% mid LAD lesion treated with 1 AMY. Patient was ultimately placed on dual antiplatelet therapy. Chest Pain CAD s/p Stent Placement He was at cardiac rehab this morning and was complaining of some chest pain and had to subsequently stop exercising. Notes his chest pain has significantly improved since stent placement back in January, but he is still experiencing ongoing fatigue and episodes of worsening chest pain with some associated SOB. Troponin negative, EKG without ischemic changes. CXR negative. Spoke with Dr. Snider via [employer]. Will continue patient's Plavix for now, ASA stopped. Continue statin. EKG for chest pain PRN. Continue to trend troponin Q6H x 3 - follow. Routine cardiology consult. Echo pending - follow. Blood in Stool, GI Bleed Patient has had increased to BRBPR since he was started on dual antiplatelet therapy according to recent [facility] documentation. He was previously on ASA and Brilinta following his discharge in January, but was transition to ASA and Plavix on 04/16 during his appointment with [facility] at [facility]. Hgb was stable at that time. He had mentioned to staff at cardiac rehab that he was still experiencing rectal bleeding even after being switched from Brilinta to Plavix. Dr. Daniel from [facility] recommended the patient be admitted to the hospital for further workup of his GI bleeding. His hemoglobin level has slightly down trended from 13.1 on 04/15 to 11.7 today in the ED. He also had a CBC performed earlier today RESOURCE DIRECTOR that revealed a hemoglobin level of 12.3. Trend H/H Q6H x 4, continue w/ IV Protonix drip. NPO for now, GI consulted. CTAP pending - follow. Pending scope evaluation tomorrow more than likely. Blood consent obtained in ED . C diff testing pending - follow. Bilateral Calf Pain: Patient complaining of bilateral calf pain during our conversation in the ED. Venous duplex US of bilateral lower extremities pending - follow results. DM Type II: 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 BSG checks ACHS, Hgb A1c in AM - follow. HTN: Stable, continue home medications. Dyslipidemia: Stable, continue home medications. DVT Prophylaxis: SCDs - Chemical DVT prophylaxis contraindicated secondary to GI bleeding. Code Status: FULL CODE PCP: Alonso Daigle MD Disposition: Admit to Med/Surg + Telemetry Patient seen in collaboration with Dr. Stanton. Please see addendum. I spent a total of 65 minutes coordinating, documenting, and providing care for this patient excluding time spent in the performance of separately billed services. This included personally reviewing all current laboratories and imaging studies, medical reconciliation, outpatient chart review and discussion with specialists. This chart was completed in part utilizing Speech Voice Recognition Software. Grammatical errors, random word insertions, pronoun errors, and incomplete sentences are an occasional consequence of this system due to software limitations, ambient noise, and hardware issues. Any formal questions or concerns about the content, text, or information contained within the body of this dictation should be directly addressed to the provider for clarification. History of Present Illness Chief Complaint: Chest Pain, Bloody Diarrhea Primary Care Provider: Alonso Daigle MD Almas Pack is a 68y/o M with PMHx of DM type II, dyslipidemia, HTN, CAD s/p PCI of the LAD using a single AMY [02/11/2024], osteoarthritis and other problems listed below who presented to the ED for evaluation secondary to chest pain and bloody diarrhea. History obtained from patient, at bedside and associated chart review. Most recent confinement 02/09 to 02/11 here at [facility]. Presented with complaints of epigastric and chest pain radiating down both arms. EKG demonstrated normal sinus rhythm without ischemic changes. High sensitivity troponin was negative x 3. Patient subsequently underwent dobutamine stress echocardiogram which was positive for inferior wall ischemia. He also had sustained VT with dobutamine infusion. Patient was subsequently sent for diagnostic cardiac catheterization revealing 100% OIL FILTERS INSPECTOR of the RCA and 80% mid LAD lesion treated with 1 AMY. Patient was ultimately placed on dual antiplatelet therapy, which is to be continued for a minimum of 6 months s/p percutaneous intervention. Patient has had increased to BRBPR since he was started on dual antiplatelet therapy according to recent [facility] documentation. He was previously on ASA and Brilinta following his discharge in January, but was transition to ASA and Plavix on 04/16 during his appointment with [facility] at [facility]. Hemoglobin had remained stable at that time. Patient also with ongoing chest pain. Notes his chest pain has significantly improved since stent placement back in January, but he is still experiencing ongoing fatigue and episodes of chest pain with some associated shortness of breath. He was at cardiac rehab this morning and was complaining of some chest pain and had to subsequently stop exercising. He also mentioned to staff at cardiac rehab that he was still experiencing rectal bleeding even after being switched from Brilinta to Plavix. Patient has not tried nitro at home. Dr. Daniel from [facility] recommended the patient be admitted to the hospital for further workup of his GI bleeding. His hemoglobin level has slightly down trended from 13.1 on 04/15 to 11.7 today in the ED. He also had a CBC performed earlier today (ordered by cardiology) prior to arrival at the ED that revealed a hemoglobin level of 12.3 this morning. He became rather lightheaded and dizzy while getting his blood drawn this morning as well. Describes the chest pain episodes as feeling more of a chest pressure versus sharp/stabbing pain. Reports that he has chest pain all of the time, but experiences episodes where he feels more severe. He constantly feels lightheaded and dizzy when he is up and moving around. Patient has had significant amount of diarrhea since his stent was placed back in January. Reports that he notices blood in his stool with every bowel movement. Has multiple episodes of diarrhea per day. His appetite is significantly decreased, but he has been hydrating appropriately. Allergies Allergy/AdvReac Type Severity Reaction Status Date / Time No Known Allergies Allergy Unknown Verified 04/21/24 16:21 Home Medications Medication Instructions Recorded Confirmed Type aspirin 81 mg tablet,delayed 81 mg PO QDD 08/13/18 04/21/24 History release (Nga Low Dose Aspirin) atorvastatin 80 mg tablet 80 mg PO HS 08/13/18 04/21/24 History fexofenadine 180 mg tablet 180 mg PO QDD 08/13/18 04/21/24 History fluticasone propionate 50 2 spray intranasal QAM 08/13/18 04/21/24 History mcg/actuation nasal spray,suspension (Flonase Allergy Relief) lisinopril 20 mg tablet 20 mg PO QPM 08/13/18 04/21/24 History magnesium 250 mg tablet 250 mg PO QDD 08/13/18 04/21/24 History multivitamin 1 tab PO QAM 08/13/18 04/21/24 History omega 9-tft-rbe-fish oil 1,000 mg 1 cap PO DAILY 08/13/18 04/21/24 History (120 mg-180 mg) capsule (Fish Oil) potassium gluconate 550 mg (90 mg) 550 mg PO QDD 08/13/18 04/21/24 History tablet diclofenac sodium 1 % topical gel 1 g topical QID 02/10/24 04/21/24 History (Voltaren Arthritis Pain) esomeprazole magnesium 20 mg 20 mg PO DAILYBB 02/10/24 04/21/24 History capsule,delayed release (Nexium) semaglutide 7 mg tablet (Rybelsus) 7 mg PO QAM 02/10/24 04/21/24 History vit C 250 mg-vit E 90 mg-zinc 40 1 tab PO BID 02/10/24 04/21/24 History mg-copper 1 [id number] capsule (PreserVision AREDS-2) gabapentin 100 mg capsule 100 mg PO HS #30 caps 02/12/24 04/21/24 Rx metoprolol succinate 25 mg 12.5 mg (1/2 x 25 mg) PO QAM #30 02/12/24 04/21/24 Rx tablet,extended release 24 hr tabs clopidogrel 75 mg tablet 75 mg PO QAM 04/21/24 04/21/24 History ezetimibe 10 mg tablet 10 mg PO QAM 04/21/24 04/21/24 History isosorbide mononitrate 30 mg 15 mg PO QAM 04/21/24 04/21/24 History tablet,extended release 24 hr metformin 1,000 mg tablet 1,000 mg PO BIDWMEAL 04/21/24 04/21/24 History montelukast 10 mg tablet 10 mg PO QAM 04/21/24 04/21/24 History Past Med/Surg History Problem List (Updated 04/21/24 @ 18:41 by Brenna Abarca PA-C) GI bleeding Blood in stool Peripheral neuropathy Status post insertion of drug-eluting stent into left anterior descending (LAD) artery CAD (coronary artery disease), [place] coronary artery Diabetes mellitus type 2 with complications Musculoskeletal chest pain CAD (coronary artery disease), [place] coronary artery Steroid-induced gastritis Unstable angina pectoris due to coronary arteriosclerosis Cervical spine arthritis with nerve pain Hypertension Chest pain (Acute) Medical History (Updated 04/21/24 @ 18:41 by Brenna Abarca PA-C) Finger avulsion middle right finger and reattached Non-insulin dependent type 2 diabetes mellitus Obesity (BMI 35.0-39.9 without comorbidity) Diabetes Seasonal allergies High cholesterol Surgical History Hx of colonoscopy Hx of hernia repair as child Social History Smoking Status: Never smoker Tobacco Type: Cigarettes Hx Alcohol Use: Yes Alcohol type: beer Hx Substance Use: No Preferred Language: Tajik Communication Ability: Effective Crystal Finisher Required: No Beliefs That Will Affect Care: None Current Living Situation: Spouse 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 Physical Exam Physical Exam: General: WD/WN, vitals as above, NAD, sitting up in bed, conversing appropriately, somewhat diaphoretic but stable. A+Ox3, euthymic affect. HEENT: Normocephalic, atraumatic. PERRL, conjunctivae normal, anicteric sclerae. External ear and nose normal, oropharynx normal. Respiratory: Normal respiratory effort, lungs clear to auscultation, no wheeze, rales, rhonchi. No accessory muscle use. Cardiovascular: Regular rate, rhythm, no murmur, normal peripheral pulses, BLE edema not but not pitting. Vessels: No JVD. Abdomen/GI: Normal bowel sounds, soft, nontender, no hepatosplenomegaly, quite distended. Extremities/Musculoskeletal: No cyanosis or clubbing, extremities motor strength intact, moves all extremities. Neurologic: EOMI, accommodation nl, no face palsy, no dysarthria, CN's II-XI not formally tested but appear grossly intact bilaterally. Skin: No rashes, normal color, warm/dry. Results & Data Results & Data Vital Signs (Past 12 Hours) Vital Signs Temp Pulse Pulse Resp BP BP Pulse Ox 04/21/24 14:59 74 18 120/62 95 04/21/24 14:47 79 04/21/24 14:07 77 93 04/21/24 13:40 04/21/24 13:31 36.7 C 79 18 131/73 97 O2 Del Method 04/21/24 14:59 Room Air 04/21/24 14:47 04/21/24 14:07 Room Air 04/21/24 13:40 Room Air 04/21/24 13:31 Room Air Laboratory Results Short CBC 04/21/24 Range/Units 14:44 WBC 6.18 (4.8-10.8) K/ul Hgb 11.7 L (14.0-18.0) g/dl Hct 34.6 L (42.0-52.0) % Plt Count 253 (130-400) K/uL BMP 04/21/24 14:44 Sodium 138 Potassium 4.4 Chloride 106 Carbon Dioxide 28 BUN 20 Creatinine 1.13 Glucose 159 H Calcium 8.7 Liver Function 04/21/24 Range/Units 14:44 Total Bilirubin 0.7 (0.2-1.0) mg/dl AST 16 (13-39) U/L ALT 19 (7-52) U/L Alkaline Phosphatase 70 (34-104) U/L Albumin 4.0 (3.4-5.0) gm/dl Diagnostic Findings Chest X-Ray 04/21/24 14:37 XR chest 1V portable HISTORY: chest pain COMPARISON: Chest 02/10/2024. FINDINGS: No pneumothorax. No pleural effusions. A few bibasilar linear densities favor subsegmental atelectasis or scarring. No new focal lung consolidations to suggest a pneumonia. No evidence for pulmonary edema. The heart is mildly enlarged. Stable prominence of the central pulmonary arteries. Calcifications within the aortic knob. No acute fractures. IMPRESSION: No acute process. ACT 112: Negative or not required by law. Electronically signed by: Kulwant Martinez M.D. 04/21/2024 3:52 PM Medications Administered Discontinued Medications Sodium Chloride (Nss) 500 mls @ 999 mls/hr IV .Q31M KAREN Stop: 04/21/24 14:45 Last Admin: 04/21/24 15:03 Dose: 999 mls/hr Documented By: LCD Code Status & VTE Plan Code Status FULL CODE Supervising Physician Co-Signing Physician Notes 68-year-old male with PMH of T2DM, HLD, HTN, CAD status post PCI of the LAD using single AMY [02/11/2024], presented to the ED for evaluation of chest pain and bloody diarrhea. Patient reports he has been having chest tightness/chest pain since about 2 weeks RESOURCE DIRECTOR, on and off, can last up to 10 to 15-minute at max, mostly occurs with activity, describes as elephant sitting on the chest, occasional radiation to left arm and neck. Patient denies any missing doses of DAPT. Patient also reports bloody diarrhea since after stent placement in mid January. He also reports having shortness of breath and easy fatigability. He denies any abdominal pain. He denies any retrosternal heartburn. He was at cardiac rehab today morning where he complained of chest pain, then he was sent to [facility] for blood work, patient then went home . Later on he was called from [facility] to reach out to ED due to chest pain and dropping hemoglobin level. Labs reviewed, baseline hemoglobin seems to be around 13, hemoglobin today to 11.7. Electrolytes and renal function WNL. Troponin WNL. CXR with no acute process. Active problems: Chest pain/chest tightness, rule out ACS iso recent LAD stent: Team reached out to cardiology, plan to hold aspirin given GI bleed. Continue with Plavix. Cardiology consult. Trend troponin, echo. Telemetry monitoring. EKG as needed with chest pain. GI bleed: Patient reports having bright red blood per rectum and sometimes black since mid January after stent placement. Patient has been having loose stools 4- 8 times a day. Hemoglobin every 6 hourly, transfuse for hemoglobin less than 10 given chest pain and tightness. PPI drip. C diff. GI consult. N.p.o. except meds and sips. Bilateral calf pain: Patient reported bilateral calf pain, will get US venous Doppler BLE. On Exam: GENERAL: Alert and oriented x3. NAD, on RA. HEENT: No pallor, no icterus. Pupils equal, round and reactive to light. Oral mucosa moist. NECK: No JVD, no neck masses. HEART: S1 and S2 heard. Regular rate and rhythm. No murmur, no gallop. RESPIRATORY SYSTEM: Normal AP diameter. No accessory muscle use. No wheezing, no crackles. ABDOMEN: Soft, bowel sounds present, nontender, no distention. CENTRAL NERVOUS SYSTEM: No facial droop. Speech is clear. Obeys simple commands. Moves extremities. EXTREMITIES: trace ble edema, no erythema seen. I have seen and examined the patient and have discussed the case with the provider above. I agree with the assessment and plan as stated. total time spent 40 minutes. (1) Chest pain Chest pain type: unspecified Qualified Code(s): R07.9 - Chest pain, unspecified
[2024-04-21] MEDS: PANTOprazole 80 MG in DEXTROSE 5% 100 ML IV ONE (16:59)
[2024-04-21] MEDS: PANTOprazole 40 MG in DEXTROSE 5% MINI-B 100 ML IV SCH (17:14)
[2024-04-21] MEDS: MoRPHine SULFATE 4 MG/ML 1 ML CARP\\VIAL IV STA (17:14)
[2024-04-21] MEDS: PANTOPRAZOLE BOLUS/DRIP IV STA (17:18)
[2024-04-21] MEDS ORDERED: GLUCOSE 40% GEL 15 GM TUBE PO PRN (18:39)
[2024-04-21] MEDS ORDERED: CARBOHYDRATES FOR HYPOGLYCEMIA PO PRN (18:39)
[2024-04-21] MEDS ORDERED: ONDANSETRON INJ 2 MG/ML 2 ML VIAL IV PRN (18:39)
[2024-04-21] MEDS ORDERED: GLUCOSE 10 TAB/TUBE PO PRN (18:39)
[2024-04-21] MEDS ORDERED: POLYETHYLENE (MIRALAX) 17 GM PACK PO PRN (18:39)
[2024-04-21] MEDS ORDERED: GLUCAGON FOR INJ 1 MG VIAL SQ PRN (18:39)
[2024-04-21] MEDS ORDERED: DEXTROSE 50% 50 ML SYRINGE IV PRN (18:39)
--- NOTE | 2024-04-21 19:32 | CT Scan Report ---
Exam(s): CT ABDOMEN + PELVIS Without Contrast EXAM: CT Abdomen and Pelvis Without Intravenous Contrast CLINICAL HISTORY: Reason for exam: Rectal bleeding, abd pain. TECHNIQUE: Axial computed tomography images of the abdomen and pelvis without intravenous contrast. CTDI is 27.58 mGy and DLP is 1381.06 mGy-cm. Automated exposure control was utilized for the study. A dose lowering technique was utilized adhering to the principles of ALARA. COMPARISON: 08/01/2023 FINDINGS: ABDOMEN: Liver: Unremarkable. Gallbladder and bile ducts: Cholelithiasis without acute cholecystitis. Pancreas: Unremarkable. Spleen: Unremarkable. Adrenals: Unremarkable. Kidneys and ureters: Unremarkable. No obstructing stones. No hydronephrosis. Stomach and bowel: Mild colonic mucosal thickening consistent with mild nonspecific colitis. PELVIS: Appendix: No findings to suggest acute appendicitis. Bladder: Unremarkable. Reproductive: Unremarkable as visualized. ABDOMEN and PELVIS: Intraperitoneal space: Unremarkable. No free air. No significant fluid collection. Bones/joints: Degenerative changes in the lumbar spine. Soft tissues: Unremarkable. Vasculature: Aortobiiliac atherosclerotic calcifications. Lymph nodes: Unremarkable. IMPRESSION: Mild colonic mucosal thickening consistent with mild nonspecific colitis. Electronically signed by: Ketan Torres MD 04/21/24 19:31 PM
--- NOTE | 2024-04-21 20:14 | Ultrasound Report ---
Exam(s): US VENOUS BILATERAL LOWER EXTREMITIES EXAM: US Duplex Bilateral Lower Extremities Veins CLINICAL HISTORY: Reason for exam: B/l calf tenderness. TECHNIQUE: Real-time duplex ultrasound scan of the bilateral lower extremity veins integrating B-mode two-dimensional vascular structure, Doppler spectral analysis, color flow Doppler imaging and compression. COMPARISON: No relevant prior studies available. FINDINGS: Right deep veins: Unremarkable. The visualized deep veins of the right lower extremity are compressible with color flow. No visualized thrombus. Right superficial veins: Unremarkable. Left deep veins: Unremarkable. The visualized deep veins of the left lower extremity are compressible with color flow. No visualized thrombus. Left superficial veins: Unremarkable. Soft tissues: No acute findings. IMPRESSION: No DVT within the bilateral lower extremities. Electronically signed by: Ketan Torres MD 04/21/24 20:13 PM
[2024-04-21] MEDS: INSULIN ASPART PER UNIT CHARGE SC SCH (20:23)
[2024-04-21 20:30] LABS: Hematocrit (blood only) 34.4 % (42.0-52.0); Hemoglobin 11.8 g/dl (14.0-18.0)
[2024-04-21] MEDS: ATORVASTATIN 40 MG TAB PO SCH (20:43)
[2024-04-21] MEDS: GABAPENTIN 100 MG CAP PO SCH (20:43)
[2024-04-21] MEDS: lisinopril 20 MG TAB PO SCH (20:43)
[2024-04-21] MEDS: HYDROmorphone INJ 1 MG/ML SYRINGE IV PRN (23:11)
[2024-04-22 00:40] LABS: Hematocrit (blood only) 37.1 % (42.0-52.0); Hemoglobin 12.5 g/dl (14.0-18.0); Mean Corpuscular Hemoglobin 28.4 pg (25.0-34.0); Mean Corpuscular Hgb Conc 33.7 g/dL (32.0-36.0); Mean Corpuscular Volume 84.3 fL (80.0-100.0); Mean Platelet Volume 9.3 fL (9.4-12.4); Platelet Count 269 K/uL (130-400); RDW Coefficient of Variation 14.9 % (11.5-14.5); RDW Standard Deviation 45.3 fL (36.4-46.3); White Blood Count 6.99 K/ul (4.8-10.8)
[2024-04-22] MEDS: MELATONIN 3 MG TAB PO PRN (02:52)
[2024-04-22] MEDS: oxyCODONE HCL IR 5 MG TAB (IMMEDIATE RELEASE) PO PRN (02:52)
--- OUTSIDE RECORDS SUMMARY | 2024-04-22 03:25 | External Medical Summary | Summary of Care ---
Author Name Unknown Organization [facility] Address [address] [facility] [place] [address] Phone [phone] Care Team Providers Care Spray Unit Feeder Name Role Phone Nisa Goodrich PA-C Primary Care Provider [phone] Reason for Visit * Reason Onset Date Comments Medication Refill 04/16/2024 Encounter Details Date Type Department Care Team (Late st Contact Info) Description 04/16/2024 Telephone Cardiology, [facility] [address] [place] [address] Rosa Fajardo PA-C [address] [place] [address] Medication Refill Allergies No known active allergiesdocumented as of this encounter (statuses as of 04/16/2024) Medications Medication Sig Dispensed Refills Start Date End Date Status ASPIRIN 81 MG OR TABS one tab by mouth daily 0 0 11/24/19 05 Active ONE DAILY MENS PO TABS 1 daily 0 03/24/20 06 Active FISH OIL 1000 MG PO CPDR 1 Daily 1 Cap 0 11/20/19 12 Active Magnesium 250 MG Tablet Take 1 Tablet by mouth in the morning. 10/05/19 19 Active Potassium Gluconate 550 MG TABS Take by mouth. 10/05/19 19 Active Diclofenac Sodium (VOLTAREN) 1 % gel Place 1 g topically on the skin 4 times a day. 3 Tube 1 10/07/19 20 Active Fexofenadine HCl 180 MG Oral Tablet (Amairani)Indicatio ns:Chronic rhinitis Take 1 Tab by mouth daily. 90 Tab 3 04/07/20 21 Active Montelukast Sodium 10 MG Oral Tablet (Singulair)Indicat ions:COVID-19 Take 1 Tablet by mouth in the morning. 90 Tablet 3 09/22/19 24 Active metFORMIN HCl 1000 MG Oral Tablet (Glucophage) Take 1 Tablet by mouth 2 times a day with morning and evening meals. 180 Tablet 3 10/17/19 24 Active Lisinopril 20 MG Oral Tablet (Prinivil)Indicati ons:HTN, goal below 140/90 TAKE ONE TABLET BY MOUTH EVERY DAY 90 Tablet 2 12/16/19 24 025 Active Atorvastatin Calcium 80 MG Oral Tablet (Lipitor) TAKE ONE TABLET BY MOUTH EVERY DAY 90 Tablet 2 12/16/19 24 025 Active Fluticasone Propionate 50 MCG/ACT Nasal Suspension (Flonase) ADMINISTER 2 SPRAYS INTO EACH NOSTRIL DAILY IN THE MORNING 48 g 2 12/16/19 24 025 Active Ondansetron 4 MG Oral Tablet Disintegrating (Zofran)Indication s:Nausea Place 1 Tablet on tongue every 8 hours as needed for Nausea. dissolve on tongue. 20 Tablet 02/09/20 24 Active Additional Information Patient not taking.Reported on 03/08/2024 Esomeprazole Magnesium 20 MG Oral Capsule Delayed Release (NexIUM) Take 1 Capsule by mouth daily before breakfast. Active Gabapentin 100 MG Oral Capsule (Neurontin) Take 1 Capsule by mouth at bedtime. 90 Capsule 1 03/12/20 24 Active Ezetimibe 10 MG Oral Tablet (Zetia) Take 1 Tablet by mouth in the morning. 90 Tablet 3 03/15/20 24 Active Rybelsus 7 MG Oral Tablet Take 7 mg by mouth daily first thing in the morning. 03/15/20 24 Active Hydrocortisone Acetate 25 MG Rectal Suppository (Anusol-HC)Indicat ions:Rectal bleeding Administer into the rectum 2 times a day in the morning and at bedtime as needed for Hemorrhoids. Up to 2 weeks. 24 Suppository 1 03/22/20 24 Active Metamucil Fiber Oral Tablet Chewable Take by mouth. Active Metoprolol Succinate ER 25 MG Oral Tablet Extended Release 24 Hour (toPROL XL) 0.5 Tablets. 02/12/20 24 024 Discontinued(Re fill) Isosorbide Mononitrate ER 30 MG Oral Tablet Extended Release 24 Hour (Imdur) Take 0.5 Tablets by mouth in the morning. 90 Tablet 3 03/10/20 24 024 Discontinued(Re fill) Brilinta 90 MG Oral TabletIndications: Presence of stent in LAD coronary artery Take 1 Tablet by mouth in the morning and 1 Tablet before bedtime. 60 Tablet 03/16/20 24 024 Discontinued Ticagrelor 90 MG Oral Tablet (Brilinta)Indicati ons:Presence of stent in LAD coronary artery Take 1 Tablet by mouth in the morning and 1 Tablet before bedtime. 180 Tablet 3 03/16/20 24 024 Discontinued Metoprolol Succinate 25 MG Oral Capsule ER 24 Hour Sprinkle Take 12.5 mg by mouth in the morning. Short term for mail order . 024 Discontinued documented as of this encounter (statuses as of 04/16/2024) Active Problems Problem Noted Date Diagnosed Date NSVT (nonsustained ventricular tachycardia) 04/2024 Presence of stent in LAD coronary artery 024 Chronic coronary artery disease 02/17/2024 Cervical spine pain 01/16/2024 Cervical spinal stenosis 01/16/2024 Spondylosis, cervical, with myelopathy Chronic neck pain 01/16/2024 Upper extremity weakness 01/16/2024 Pre-op testing 01/16/2024 Primary osteoarthritis of left knee 05/05/2020 HTN, goal below 140/90 11/08/2014 Type 2 diabetes mellitus wit h hemoglobin A1c goal of less than 7.0% 12/05/2011 Overview: ICD-10 update of inactive term Dyslipidemia, goal LDL below 70 12/05/2011 Generalized osteoarthritis 04/06/2010 documented as of this encounter (statuses as of 04/16/2024) Resolved Problems Problem Noted Date Diagnosed Date [...] as of this encounter (statuses as of 04/16/2024) Immunizations Name Administration Dates Next Due COVID-19 mRNA, LNP-s, No Pre serve, 2-Dose Series (Revokom) 07/30/2021,11/30/2020,11/09/2020 COVID-19, MRNA-LNP, 23-24, P F, 30 MCG/0.3 mL, 12 YRS AND ABOVE, IM ([facility] 06/30/2023 Covid-19, Mrna, Lnp-s, Pf, B ivalent, 30 Mcg, IM, 12 yrs and above (Revokom) 06/20/2022 HEP A - Hepatitis A (Adult [...] in the Last Year Never true 05/05/2020 Utilities Answer Date Recorded Do you have trouble paying y our heating, water, or electric bill? (Adult - for ages 18 years and over) Not on file 02/17/2024 Is your family able to pay t he heat, water, or electric bill? (Household - for ages 0-17 years) Not on file 02/17/2024 Does your family have access to good internet? (Household - for ages 0-17 years) Not on file 02/17/2024 Social Connections Answer Date Recorded How often do you feel lonely or isolated from those around you? (Adult - for ages 18 years and over) Not on file 02/17/2024 Sex and Gender Information Value Date Recorded [...] Care Team (Late st Contact Info) Description 05/17/2024 8:00 AM EDT Office Visit Pharmacy, [facility] [address] [place] [address] [facility] [address] [place] [address] 06/01/2024 10:00 AM EDT Office Visit Cardiology, [facility] [address] [place] [address] William Snider DO [address] [place] [address] 06/02/2024 11:00 AM EDT Office Visit Gastroenterology, [facility] [address] [place] [address] Kary Perez CRNP [address] [place] [address] 07/01/2024 9:16 AM EDT Hospital Encounter OR [facility], Operating Room, [facility] - 4th Floor [address] [address] Marciano Lopez MD [address] [place] [address] 07/01/2024 9:16 AM EDT - 07/01/2024 9:52 AM EDT Surgery OR [facility], Operating Room, [facility] - 4th Floor [address] [place] [address] Marciano Lopez MD [address] [place] [address] COLONOSCOPY FLEXIBLE PROXIMAL DIAGNOSTIC 09/06/2024 11:00 AM EST Office Visit [place] [address] [place] [phone] Nisa Goodrich PA-C [address] [facility], [place] [phone] 09/08/2024 7:40 AM EST Office Visit [facility] [address] [place] [facility] [place] [phone] Alonso Daigle MD [address] [facility], [place] [address] 09/14/2024 8:45 AM EST Office Visit Orthopaedics Spine Surgery, Anaya [place] [address] [place] [address] Kleber Batres MD [address] [place] [address] Scheduled Procedures Name Priority Associated Diagnoses Date/Ti me COLONOSCOPY FLEXIBLE PROXIMA L DIAGNOSTIC Recall Blood in stool 07/01/2024 9:16 AM EDT ARTHRODESIS, ANT INTERBODY, BELOW C-2 Cervical spine pain Cervical spinal stenosis Spondylosis, cervical, with myelopathy Chronic neck pain Upper extremity weakness Pre-op testing ARTHRODESIS,ANT INTERBODY,BELOW C-2,EA ADDL Cervical spine pain Cervical spinal stenosis Spondylosis, cervical, with myelopathy Chronic neck pain Upper extremity weakness Pre-op testing INSERTION INTERBODY BIOMECHANICAL DEVICE ANTERIOR W/INTERBODY ARTHRODESIS Cervical spine pain Cervical spinal stenosis Spondylosis, cervical, with myelopathy Chronic neck pain Upper extremity weakness Pre-op testing OBTAIN AUTOGRAFT FOR SPINE SURGERY MORSELIZED SEPARATE INCISION Cervical spine pain Cervical [...] weakness Pre-op testing BONE MARROW ASPIRATION FOR SPINE BONE GRAFTING Cervical spine pain Cervical spinal stenosis Spondylosis, cervical, with myelopathy Chronic neck pain Upper extremity weakness Pre-op testing Health Maintenance Due Date Last Done Comments Hepatitis C Screening 1974 Cologuard 2001 Fecal Occult Blood Test 2001 Sigmoidoscopy 2001 Depression Screening 05/05/2021 05/05/2020 Pneumococcal Vaccine: 65+ Years (2 of 2 - PCV) 07/30/2022 07/30/2021, 09/12/2011 Adult Wellness Visit 2022 COVID-19 Vaccine ( season) 2023 06/30/2023, 06/20/2022, 07/30/2021, Additional history exists Influenza Vaccine (FLU shot) (#1) 2024 06/30/2023, 05/10/2022, 07/20/2021, Additional history exists HbA1c 08/17/2024 02/16/2024, 12/30, 10/08/2023, Additional history exists Diabetic Foot Exam 09/03/2024 09/03/2023, 0 02/09/2021, 10/05/2018, Additional history exists Diabetic Eye Exam 10/07/2024 10/07/2023, 09/08/2020 Albumin/Creatinine Ratio 10/08/20242 024, 05/10/2022, 09/24/2021, Additional history exists B-12 10/08/2024 10/08/2023, 09/0 05/2022, 02/09/2021, Additional history exists GFR 04/15/2025 04/15/2024, 0 04/2024, 10/08/2023, Additional history exists Colonoscopy 05/07/2028 05/07/2018, 090 01/2018, 01/13/2007 Colorectal Cancer Screening 05/07/2028 DTaP,Tdap,and Td Vaccines (4 - Td or Tdap) 04/09/2029 04/09/2019, 04/05/2011, 01/30/2010, Additional history exists Hepatitis B Vaccine Completed 05/15/2016, 12/13/2015, 11/08/2015 Zoster Vaccines Completed 02/09/2021, 09/28/2020 AAA Screening Completed 05/24/2022 HPV (Gardasil) Vaccine Aged Out No lo nger eligible based on patient's age to complete [...] and were consensually agreed upon. Care Teams Spray Unit Feeder Relationship Specialty Start Date End Date Nisa Goodrich PA-C [address] [place] [address] PCP - General Physician Grounds/Maintenance Specialist 03/14/24 documented as of this encounter
--- OUTSIDE RECORDS SUMMARY | 2024-04-22 03:25 | External Medical Summary ---
Author Name Unknown Address Unknown Organization [id number][facility] [place] [address] Laboratory Report Ordering Provider Test Date Status PAWEL STEPHENS 04/21/2024 10:41:58 Final Observation Date Value Abnormality Reference (Units ) Status WBC, Total 04/21/2024 10:41:58 6.66 4.00-10.8 0 (K/uL) Final RBC 04/21/2024 10:41:58 4.25 4.50-5.25 (M/uL) Final Hemoglobin 04/21/2024 10:41:58 12.3 Below low normal 14 .0-16.8 (g/dL) Final HCT 04/21/2024 10:41:58 36.5 Below low normal 40. 0-48.4 (%) Final MCV 04/21/2024 10:41:58 85.9 82.0-99.5 (fL) Final MCH 04/21/2024 10:41:58 28.9 27.0-34.0 (pg) Final MCHC 04/21/2024 10:41:58 33.7 32.0-36.0 (g/dL) Final RDW 04/21/2024 10:41:58 15.1 11.5-15.5 (%) Final Platelets 04/21/2024 10:41:58 263 140-400 (K /uL) Final MPV 04/21/2024 10:41:58 8.7 6.6-11.1 ( fL) Final Performing Location [facility] [address] [place] [address]
--- OUTSIDE RECORDS SUMMARY | 2024-04-22 03:26 | External Medical Summary | Summary of Care ---
Author Name Unknown Organization [facility] Address [address] [facility] [place] [address] Phone [phone] Care Team Providers Care Library Customer Service Clerk Name Role Phone Nisa Goodrich PA-C Primary Care Provider [phone] Reason for Visit * Reason Onset Date Comments Advice 03/22/2024 Encounter Details Date Type Department Care Team (Late st Contact Info) Description 03/22/2024 Telephone Cardiology, [facility] [address] [place] [address] Rosa Fajardo PA-C [address] [place] [address] Advice Allergies No known active allergiesdocumented as of this encounter (statuses as of 03/23/2024) Medications Medication Sig Dispensed Refills Start Date [...] Active Montelukast Sodium 10 MG Oral Tablet (Singulair)Indicati ons:COVID-19 Take 1 Tablet by mouth in the morning. 90 Tablet 3 09/22/2023 Active metFORMIN HCl 1000 MG Oral Tablet (Glucophage) Take 1 Tablet by mouth 2 times a day with morning and evening meals. 180 Tablet 3 10/17/2023 Active PreserVision AREDS 2 Oral Tablet Chewable Take by mouth. Active Citrucel 500 MG Oral Tablet (Methylcellulose (Laxative)) Take 1 Tablet by mouth as needed for Constipation. Active Lisinopril 20 MG Oral Tablet (Prinivil)Indicatio ns:HTN, goal below 140/90 TAKE ONE TABLET BY MOUTH EVERY DAY 90 Tablet 2 12/16/2023 5 Active Atorvastatin Calcium 80 MG Oral Tablet (Lipitor) TAKE ONE TABLET BY MOUTH EVERY DAY 90 Tablet 2 12/16/2023 5 Active Fluticasone Propionate 50 MCG/ACT Nasal Suspension (Flonase) ADMINISTER 2 SPRAYS INTO EACH NOSTRIL DAILY IN THE MORNING 48 g 2 12/16/2023 5 Active Ondansetron 4 MG Oral Tablet Disintegrating (Zofran)Indications :Nausea Place 1 Tablet on tongue every 8 hours as needed for Nausea. dissolve on tongue. 20 Tablet 02/09/2024 Active Additional Information Patient not taking.Reported on 03/08/2024 predniSONE 10 MG Oral Tablet (Deltasone)Indicati ons:Viral illness Take 5 tabs for 2 days, 4 tabs for 2 days, 3 tabs for 2 days, 2 tabs for 2 days 1 tab for 2 days 30 Tablet 02/09/2024 Active Additional Information Patient not taking.Reported on 03/08/2024 Esomeprazole Magnesium 20 MG Oral Capsule Delayed Release (NexIUM) Take 1 Capsule by mouth daily before breakfast. Active Metoprolol Succinate ER 25 MG Oral Tablet Extended Release 24 Hour (toPROL XL) 0.5 Tablets. 02/12/2024 Active Isosorbide Mononitrate ER 30 MG Oral Tablet Extended Release 24 Hour (Imdur) Take 0.5 Tablets by mouth in the morning. 90 Tablet 3 03/10/2024 Active Gabapentin 100 MG Oral Capsule (Neurontin) Take 1 Capsule by mouth at bedtime. 90 Capsule 1 03/12/2024 Active Ezetimibe 10 MG Oral Tablet (Zetia) Take 1 Tablet by mouth in the morning. 90 Tablet 3 03/15/2024 Active Brilinta 90 MG Oral TabletIndications:P resence of stent in LAD coronary artery Take 1 Tablet by mouth in the morning and 1 Tablet before bedtime. 60 Tablet 03/16/2024 Active Ticagrelor 90 MG Oral Tablet (Brilinta)Indicatio ns:Presence of stent in LAD coronary artery Take 1 Tablet by mouth in the morning and 1 Tablet before bedtime. 180 Tablet 3 03/16/2024 Active Rybelsus 7 MG Oral Tablet Take 7 mg by mouth daily first thing in the morning. 03/15/2024 Active Hydrocortisone Acetate 25 MG Rectal Suppository (Anusol-HC)Indicati ons:Rectal bleeding Administer into the rectum 2 times a day in the morning and at bedtime as needed for Hemorrhoids. Up to 2 weeks. 24 Suppository 1 03/22/2024 Active documented as of this encounter (statuses as of 03/23/2024) Active Problems Problem Noted Date Diagnosed Date [...] as of this encounter (statuses as of 03/23/2024) Resolved Problems Problem Noted Date Diagnosed Date [...] as of this encounter (statuses as of 03/23/2024) Immunizations Name Administration Dates Next Due COVID-19 mRNA, LNP-s, No Pre serve, 2-Dose Series ([employer]) 07/30/2021,11/30/2020,11/09/2020 COVID-19, MRNA-LNP, 23-24, P F, 30 MCG/0.3 mL, 12 YRS AND ABOVE, IM ([employer]-Comirnaty) 06/30/2023 Covid-19, Mrna, Lnp-s, Pf, B ivalent, [...] 10/13/2003 TDAP (age 10 and older)(Boostrix) 04/09/2019 TDAP, [...] encounter Miscellaneous Notes * Telephone Encounter - Bere Bhatt OSA - 03/23/2024 9:12 AM EDT Pt called back to schedule, states he had stent placed about a [place] ago at [place]. Pt states he is taking ASA/Brilinta. Please advise as pt is having blood in stool. Thanks! * Telephone Encounter - Aleah Cormier OSA - 03/22/2024 2:44 PM EDT Called patient lmm for patient to call office back. * Telephone Encounter - Karen Owens OSA - 03/22/2024 2:26 PM EDT Patient needs to be called to schedule Colonoscopy thank you * Telephone Encounter - Rosa Fajardo PA-C - 03/22/2024 11:58 AM EDT Recommend PCP evaluation. Update CBC Unfortunately given recent coronary intervention, would not recommend stopping ASA/Brilinta unless symptoms worsen or significant anemia noted. See if he is taking PPI? Nexium on med list? * Telephone Encounter - Nithin Oakes RN - 03/22/2024 11:43 AM EDT Patient called clinic and stated that he is having blood in his stools. . He takes Brelinta. He hasblood in his stools last week and and over the week end and today. Patient is also asking I we can get him into [facility]. I told him I had called rehab on 03/11/2023. Told have him scheduled to start in April. The are booked at the present. documented in this encounter Plan of Treatment Upcoming Encounters Date Type Department Care Team (Late st Contact Info) Description 04/16/2024 10:30 AM EDT Office Visit Cardiology, [facility] [address] [facility] [place] [address] Rosa Fajardo PA-C [address] [facility] [place] [address] 05/17/2024 8:00 AM EDT Office Visit Pharmacy, [facility] [address] [facility] [place] [address] [facility] [address] [facility] [place] [address] 09/06/2024 11:00 AM EST [facility] [place] [address] [address] [facility] [phone] Nisa Goodrich PAVictor Hugo [address] [facility] [address] 09/08/2024 7:40 AM EST [facility] [place] [address] [address] [facility] [place] [phone] Alonso Daigle MD [address] [facility] [address] 09/14/2024 8:45 AM EST Office Visit Orthopaedics Spine Surgery, Anaya [place] [address] [place] [address] Kleber Batres MD [address] [place] [address] Scheduled Procedures Name Priority Associated Diagnoses Date/Ti [...] Pre-op testing COLONOSCOPY FLEXIBLE PROXIMA L DIAGNOSTIC Blood in stool Health Maintenance Due Date Last Done Comments Hepatitis C Screening 1974 Cologuard 2001 Fecal Occult Blood Test 2001 Sigmoidoscopy 2001 Depression Screening 05/05/2021 05/05/2020 Pneumococcal Vaccine: 65+ Years (2 of 2 - PCV) 07/30/2022 07/30/2021, 09/12/2011 COVID-19 Vaccine ( - 2022- season) 2023 06/30/2023, 06/20/2022, 07/30/2021, Additional history exists Influenza Vaccine (FLU shot) (#1) 2024 06/30/2023, 05/10/2022, 07/20/2021, Additional history exists HbA1c 08/17/2024 02/16/2024, 12/30, 10/08/2023, Additional history exists Diabetic Foot Exam 09/03/2024 09/03/2023, 0 02/09/2021, 10/05/2018, Additional history exists Diabetic Eye Exam 10/07/2024 10/07/2023, 09/08/2020 Albumin/Creatinine Ratio 10/08/20242 024, 05/10/2022, 09/24/2021, Additional history exists B-12 10/08/2024 10/08/2023, 090 05/2022, 02/09/2021, Additional history exists GFR 03/08/2025 03/08/2024, 0 03/2024, 09/12/2022, Additional history exists Colonoscopy 05/07/2028 05/07/2018, 0 [...] and were consensually agreed upon. Care Teams Library Customer Service Clerk Relationship Specialty Start Date End Date Nisa Goodrich PA-C [address] [place] [address] PCP - General Physician Plate Setter 03/14/24 documented as of this encounter
--- OUTSIDE RECORDS SUMMARY | 2024-04-22 03:26 | External Medical Summary | Summary of Care ---
Author Name Unknown Organization [facility] Address [address] [facility] [place] [address] Phone [phone] Care Team Providers Care Neighborhood Coordinator Name Role Phone Nisa Goodrich PA-C Primary Care Provider [phone] Reason for Visit * Reason Onset Date Comments Advice 03/22/2024 Encounter Details Date Type Department Care Team (Late st Contact Info) Description 03/22/2024 Telephone Cardiology, [facility] [address] [place] [address] Rosa Fajardo PA-C [address] [place] [address] Advice Allergies No known active allergiesdocumented as of this encounter (statuses as of 04/06/2024) Medications Medication Sig Dispensed Refills Start Date [...] as of this encounter (statuses as of 04/06/2024) Active Problems Problem Noted Date Diagnosed Date [...] as of this encounter (statuses as of 04/06/2024) Resolved Problems Problem Noted Date Diagnosed Date [...] as of this encounter (statuses as of 04/06/2024) Immunizations Name Administration Dates Next Due COVID-19 mRNA, LNP-s, No Pre serve, 2-Dose Series (Sonopia) 07/30/2021,11/30/2020,11/09/2020 COVID-19, MRNA-LNP, 23-24, P F, 30 MCG/0.3 mL, 12 YRS AND ABOVE, IM ([employer]-Comirnaty) 06/30/2023 Covid-19, Mrna, Lnp-s, Pf, B ivalent, [...] Telephone Encounter - Bere Bhatt OSA - 04/06/2024 11:56 AM EDT Spoke to pt, shamir'kendall colon 07/01/24 at [facility]. * Telephone Encounter - Bere Bhatt OSA - 04/06/2024 10:55 AM EDT Images from the original note were not included. Socorro Gray, EUGENE You2 weeks ago He is not a candidate for [facility]. Must be able to hold the Brilinta and must be at least 6 months outfrom stent placement for here. He will need hospital setting Socorro Harrison * Telephone Encounter - Bere Bhatt OSA - 03/23/2024 9:12 AM EDT Pt called back to schedule, states he had stent placed about a month ago at [place]. Pt states he is taking ASA/Brilinta. Please [...] 04/16/2024 10:30 AM EDT Office Visit Cardiology, [facility] [address] [place] [address] Rosa Fajardo PA-C [address] [place] [address] 05/17/2024 8:00 AM EDT Office Visit Pharmacy, [facility] [address] [place] [address] [facility] [address] [place] [address] 07/01/2024 9:16 AM EDT Hospital Encounter OR [facility], Operating Room, [facility] - 4th Floor [address] [place] [address] Marciano Lopez MD [address] [place] [address] 07/01/2024 9:16 AM EDT - 07/01/2024 9:52 AM EDT Surgery OR [facility], Operating Room, [facility] - 4th Floor [address] [place] [address] Marciano Lopez MD [address] [place] [address] COLONOSCOPY FLEXIBLE PROXIMAL DIAGNOSTIC 09/06/2024 11:00 AM EST Office Visit [place] [address] [place] [phone] Nisa Goodrich PABrinaC [address] [place] [address] 09/08/2024 7:40 AM EST [facility] Visit [facility] [address] [facility] [phone] Alonso Daigle MD [address] [place] [address] 09/14/2024 8:45 AM EST Office Visit Orthopaedics Spine Surgery, Anaya [place] [address] [place] [address] Kleber Batres MD [address] [place] [address] Scheduled Procedures Name Priority Associated Diagnoses Date/Ti [...] 09/12/2011 Adult Wellness Visit 2022 COVID-19 Vaccine (2022- season) 2023 06/30/2023, 06/20/2022, [...] 0 05/2022, 02/09/2021, Additional history exists GFR 03/08/2025 03/08/2024, 03/2024, 09/12/2022, Additional history exists Colonoscopy 05/07/2028 [...] and were consensually agreed upon. Care Teams Neighborhood Coordinator Relationship Specialty Start Date End Date Nisa Goodrich PA-C [address] [facility] [place] [address] PCP - General Physician Razor Sharpener 03/14/24 documented as of this encounter
--- OUTSIDE RECORDS SUMMARY | 2024-04-22 03:26 | External Medical Summary | Summary of Care ---
Author Name Unknown Organization [facility] Address [address] [facility] [place] [address] Phone [phone] Care Team Providers Care Mutual Fund Accountant Name Role Phone Nisa Goodrich PA-C Primary Care Provider +1 [phone] Reason for Visit * Reason Onset Date Comments Advice 03/22/2024 Encounter Details Date Type Department Care Team (Late st Contact Info) Description 03/22/2024 Telephone Cardiology, [facility] [address] [place] [address] Rosa Fajardo PA-C [address] [place] [address] Advice Allergies No known active allergiesdocumented as [...] mRNA, LNP-s, No Pre serve, 2-Dose Series ([employer]) 07/30/2021,11/30/2020,11/09/2020 COVID-19, MRNA-LNP, 23-24, P F, 30 MCG/0.3 mL, 12 YRS AND ABOVE, IM ([employer]-Comirnaty) 06/30/2023 Covid-19, Mrna, Lnp-s, Pf, B ivalent, [...] stent placed about a month ago at [place]. Pt states he is taking ASA/Brilinta. Please [...] 04/16/2024 10:30 AM EDT Office Visit Cardiology, [facility] 132 [facility] [place] [address] Rosa Fajardo PA-C 132 [facility] [place] [address] 05/17/2024 8:00 AM EDT Office Visit Pharmacy, [facility] 132 [facility] [place] [address] [facility] [address] [facility] [place] [address] 09/06/2024 11:00 AM EST Office Visit [place] [address] [facility] [phone] Nisa Goodrich PAVictor Hugo [address] [facility] [address] 09/08/2024 7:40 AM EST Office [facility] [place] [address] [facility] [place] [phone] Alonos Daigle MD [address] [facility] [address] 09/14/2024 8:45 AM EST Office Visit Orthopaedics Spine Surgery, [place] [address] [place] [address] Kleber Batres MD [address] [place] [address] Scheduled Procedures Name Priority Associated Diagnoses Date/Ti [...] and were consensually agreed upon. Care Teams Mutual Fund Accountant Relationship Specialty Start Date End Date Nisa Goodrich PA-C [address] [place] [address] PCP - General Physician Fire Watcher 03/14/24 documented as of this encounter
--- OUTSIDE RECORDS SUMMARY | 2024-04-22 03:26 | External Medical Summary | Summary of Care ---
Author Name Unknown Organization [facility] Address [address] [facility] [place] [address] Phone [phone] Care Team Providers Care Muck Hauler Name Role Phone Nisa Goodrich PA-C Primary Care Provider [phone] [phone] Reason for Visit * Reason Onset Date Comments Advice 04/15/2024 Encounter Details Date Type Department Care Team (Late st Contact Info) Description 04/15/2024 Telephone Cardiology, [facility] [address] [place] [address] Mickey Montero, [address] [place] [address] Advice Allergies No known active allergiesdocumented as of this encounter (statuses as of 04/15/2024) Medications Medication Sig Dispensed Refills Start Date [...] MOUTH EVERY DAY 90 Tablet 2 12/16/2023 Active Atorvastatin Calcium 80 MG Oral Tablet (Lipitor) TAKE ONE TABLET BY MOUTH EVERY DAY 90 Tablet 2 12/16/2023 Active Fluticasone Propionate 50 MCG/ACT Nasal Suspension [...] as of this encounter (statuses as of 04/15/2024) Active Problems Problem Noted Date Diagnosed Date [...] as of this encounter (statuses as of 04/15/2024) Resolved Problems Problem Noted Date Diagnosed Date [...] as of this encounter (statuses as of 04/15/2024) Immunizations Name Administration Dates Next Due COVID-19 mRNA, LNP-s, No Pre serve, 2-Dose Series ([employer]) 07/30/2021,11/30/2020,11/09/2020 COVID-19, MRNA-LNP, 23-24, P F, 30 [...] encounter Miscellaneous Notes * Telephone Encounter - Jil Yanez CMA - 04/15/2024 1:11 PM EDT Spoke with Aleks at cardiac rehab. Pt will have labs drawn today at [facility]. Will continue brillinta and asa. Will keep follow up appt tomorrow. * Telephone Encounter - Mickey Montero DO - 04/15/2024 1:04 PM EDT Chart reviewed in coverage of Dr. Snider and Kalin Fajardo who have both followed the patient. 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 He was found to have a hemodynamically significant lesion in the left anterior descending coronaryartery which was treated with a drug-eluting stent and was discharged on aspirin and Brilinta. Per review of chart, patient first started noticing blood in his stool 2 weeks ago. Has follow-up visit tomorrow. I have placed an order for a CBC and basic metabolic panel which he can have drawn today or before his appointment tomorrow morning so we have the results. Ideally, would when patient to stay on the aspirin Brilinta tonight. Future considerations include perhaps transitioning him from Brilinta to clopidogrel without loading dose tomorrow. If found to have significant anemia or bleeding, may need to just hold P2Y12 agent completely for afew days. -routed to cardio nursing pool. Copied Kalin Fajardo as an FYI Mickey Montero DO * Telephone Encounter - Jil Yanez CMA - 04/15/2024 12:54 PM EDT Aleks from cardiac rehab is calling. Pt has been having bloody stools for past 2 weeks. On Brillinta. Also some chest discomfort today. Has been taking Tums which helps. Pt has appt with Brianda tomorrow morning. Asking if you will want labs to have at that appt. Cb# [phone] ask for Aleks documented in this encounter Plan of Treatment Upcoming Encounters Date Type Department Care Team (Late st Contact Info) Description 04/16/2024 10:30 AM EDT Office Visit Cardiology, [facility] [address] [place] [address] Rosa Fajardo PA-C 132 [place] [address] 05/17/2024 8:00 AM EDT Office Visit Pharmacy, [facility] [address] [place] [address] [facility] [address] [place] [address] 07/01/2024 9:16 AM EDT Hospital Encounter OR [facility], Operating Room, [facility] - 4th Floor [address] [place] [address] Marciano Lopez MD [address] [place] [address] 07/01/2024 9:16 AM EDT - 07/01/2024 9:52 AM EDT Surgery OR [facility], Operating Room, [facility] - 4th Floor [address] [place] [address] Marciano Lopez MD [address] [place] [address] COLONOSCOPY FLEXIBLE PROXIMAL DIAGNOSTIC 09/06/2024 11:00 AM EST Office Visit [facility] [address] [facility], [place] [address] Nisa Goodrich PA-C [address] [place], [place] [phone] 09/08/2024 7:40 AM EST Office Visit [facility] [address] [place] [address] Alonso Daigle MD [address] [place] [address] 09/14/2024 8:45 AM EST Office Visit Orthopaedics Spine Surgery, [address] [place] [address] Kleber Batres MD [address] [place] [address] Scheduled Orders Name Type Priority Associated Diagnoses Orde r Schedule CBC Lab Routine Chronic coronary artery disease Presence of stent in LAD coronary artery Blood in stool Expected: 04/15/2024, Expires: 04/15/2025 BASIC METABOLIC PANEL Lab Routine Chronic coronary artery disease Presence of stent in LAD coronary artery Blood in stool Expected: 04/15/2024, Expires: 04/15/2025 Scheduled Procedures Name Priority Associated Diagnoses Date/Ti [...] 09/0 05/2022, 02/09/2021, Additional history exists GFR 03/08/2025 03/08/2024, 0 03/2024, 09/12/2022, Additional history exists Colonoscopy 05/07/2028 05/07/2018, 090 [...] of this encounter Visit Diagnoses Diagnosis Chronic coronary artery disease- Primary Coronary atherosclerosis of unspecified type of vessel, [place] or graft Presence of stent in LAD coronary artery Postsurgical percutaneous transluminal coronary angioplasty status Blood in stool Blood in stool documented in this encounter Advance Directives * Full Code (Latest Code Status on File) Date Activated Date Inactivated Comments 07/05/2019 10:32 AM 07/05/2019 4:23 PM This order reflects the patients wishes and were consensually agreed upon. Care Teams Muck Hauler Relationship Specialty Start Date End Date Nisa Goodrich PA-C [address] [facility] [place] [address] PCP - General Physician Airframe And Powerplant Mechanic 03/14/24 documented as of this encounter
--- OUTSIDE RECORDS SUMMARY | 2024-04-22 03:26 | External Medical Summary ---
Author Name Unknown Address Unknown Organization [facility] [address] [place] [address] Laboratory Report Ordering Provider Test Date Status MARY ACUNA 04/15/2024 14:16:00 Final Observation Date Value Abnormality Reference (Units ) Status BUN 04/15/2024 14:16:00 16 6-20 (mg/dL) Final Creatinine 04/15/2024 14:16:00 1.2 0.6-1.2 (mg/dL) Final Glomerular filtration rate/1.73 sq M.predicted [Volume Rate/Area] in Serum, Plasma or Blood by Creatinine-based formula (CKD-EPI) 04/15/2024 14:16:00 68 >=60 (mL/min) Final eGFR is calculated based on the CKD-EPI 2020 equation. Sodium 04/15/2024 14:16:00 139 135-146 (m mol/L) Final Potassium 04/15/2024 14:16:00 4.8 3.5-5.1 (m mol/L) Final Cl 04/15/2024 14:16:00 102 98-107 (mm ol/L) Final CO2 04/15/2024 14:16:00 23 22-32 (mmo l/L) Final Anion gap 04/15/2024 14:16:00 14 7-15 (mmol /L) Final Glucose 04/15/2024 14:16:00 94 70-120 (mg /dL) Final Calcium 04/15/2024 14:16:00 9.7 8.4-10.2 ( mg/dL) Final Performing Location [facility] [address] 0 - [address] [place] [address]
--- OUTSIDE RECORDS SUMMARY | 2024-04-22 03:26 | External Medical Summary | Summary of Care ---
Author Name Unknown Organization [facility] Address [address] [place] [address] Phone [phone] Care Team Providers Care Cash Accounting Clerk Name Role Phone Nisa Goodrich PA-C Primary Care Provider [phone] Reason for Visit * Reason Onset Date Comments Procedure 03/22/2024 Encounter Details Date Type Department Care Team (Late st Contact Info) Description 03/22/2024 Telephone Gastroenterology, [facility] 132 [facility] [place] [address] Services, Scheduling [address] [place] [address] Procedure Allergies No known active allergiesdocumented as of this encounter (statuses as of 03/22/2024) Medications Medication Sig Dispensed Refills Start Date [...] as of this encounter (statuses as of 03/22/2024) Active Problems Problem Noted Date Diagnosed Date [...] as of this encounter (statuses as of 03/22/2024) Resolved Problems Problem Noted Date Diagnosed Date [...] as of this encounter (statuses as of 03/22/2024) Immunizations Name Administration Dates Next Due COVID-19 mRNA, LNP-s, No Pre serve, 2-Dose Series ([employer]) 07/30/2021,11/30/2020,11/09/2020 COVID-19, MRNA-LNP, 23-24, P F, 30 MCG/0.3 mL, 12 YRS AND ABOVE, IM ([employer]-Comirnaty) 06/30/2023 Covid-19, Mrna, Lnp-s, Pf, B ivalent, [...] encounter Miscellaneous Notes * Telephone Encounter - Freya Samson OSA - 03/22/2024 6:07 PM EDT Pt returning Margaret's call requesting to schedule procedure. Thank you documented in this encounter Plan of Treatment Upcoming Encounters Date Type Department Care Team (Late st Contact Info) Description 04/16/2024 10:30 AM EDT Office Visit Cardiology, [facility] 132 [facility] [place] [address] Rosa Fajardo PA-C 132 [facility] [place] [address] 05/17/2024 8:00 AM EDT Office Visit Pharmacy, [facility] 132 [facility] [place] [address] [facility] 132 [facility] [place] [address] 09/06/2024 11:00 AM EST Office [place] [address] [facility] [phone] Nisa Goodrich PAVictor Hugo [address] [facility] [address] 09/08/2024 7:40 AM EST Office Visit [facility] [address] [facility] [place] [phone] Alonso Daigle MD [address] [facility] [address] 09/14/2024 8:45 AM EST Office Visit Orthopaedics Spine Surgery, [place] [address] [place] [address] Kleber Batres MD [address] [place] [address] Scheduled Procedures Name Priority Associated Diagnoses Date/Ti [...] and were consensually agreed upon. Care Teams Cash Accounting Clerk Relationship Specialty Start Date End Date Nisa Goodrich PA-C [address] [facility] [place] [address] PCP - General Physician Silver Recovery Operator 03/14/24 documented as of this encounter
--- OUTSIDE RECORDS SUMMARY | 2024-04-22 03:26 | External Medical Summary | Summary of Care ---
Author Name Unknown Organization [facility] Address [address] [place] [address] Phone [phone] Care Team Providers Care Vba Developer Name Role Phone Nisa Goodrich PA-C Primary Care Provider [phone] Reason for Visit * Reason Onset Date Comments Procedure 03/22/2024 Encounter Details Date Type Department Care Team (Late st Contact Info) Description 03/22/2024 Telephone Gastroenterology, [facility] 132 [facility] [place] [address] Services, Scheduling [address] [place] [address] Procedure Allergies No known active allergiesdocumented as [...] mRNA, LNP-s, No Pre serve, 2-Dose Series ([employer]) 07/30/2021,11/30/2020,11/09/2020 COVID-19, MRNA-LNP, 23-24, P F, 30 MCG/0.3 mL, 12 YRS AND ABOVE, IM ([employer]-Comirnaty) 06/30/2023 Covid-19, Mrna, Lnp-s, Pf, B ivalent, [...] Encounter - Bere Bhatt OSA - 03/23/2024 9:11 AM EDT DUPLICATE ENCOUNTER. * Telephone Encounter - Freya Samson OSA - 03/22/2024 6:07 PM EDT Pt returning Margaret's call requesting to schedule procedure. Thank you documented in this encounter Plan of Treatment Upcoming Encounters Date Type Department Care Team (Late st Contact Info) Description 04/16/2024 10:30 AM EDT Office Visit Cardiology, [facility] [address] [place] [address] Rosa Fajardo PA-C [address] [place] [address] 05/17/2024 8:00 AM EDT Office Visit Pharmacy, [facility] [place] [address] [facility] [place] [address] 09/06/2024 11:00 AM EST Office Visit [place] [address] [facility] [address] Nisa Goodrich PA-C [address] [facility] [address] 09/08/2024 7:40 AM EST Office Visit Located [facility] [address] [place] [address] Alonso Daigle MD [address] [place] [address] 09/14/2024 8:45 AM EST Office Visit Orthopaedics Spine Surgery, [place] [address] [place] [address] Kleber Batres MD [address] [place] [address] Scheduled Procedures Name Priority Associated Diagnoses Date/Ti [...] 02/09/2021, Additional history exists GFR 03/08/2025 03/08/2024, 02/0 03/2024, 09/12/2022, Additional history exists Colonoscopy 05/07/2028 05/07/2018, 09/0 [...] and were consensually agreed upon. Care Teams Vba Developer Relationship Specialty Start Date End Date Nisa Goodrich PA-C [address] [place] [address] PCP - General Physician K 9 Police Officer 03/14/24 documented as of this encounter
--- OUTSIDE RECORDS SUMMARY | 2024-04-22 03:26 | External Medical Summary ---
Author Name Unknown Address Unknown Organization [facility] [place] [address] - [address] [place] [address] Laboratory Report Ordering Provider Test Date Status MARY ACUNA 04/15/2024 14:16:00 Final Observation Date Value Abnormality Reference (Units ) Status WBC, Total 04/15/2024 14:16:00 7.23 4.00-10.8 0 (K/uL) Final RBC 04/15/2024 14:16:00 4.49 4.50-5.25 (M/uL) Final Hemoglobin 04/15/2024 14:16:00 13.1 Below low normal 14 .0-16.8 (g/dL) Final HCT 04/15/2024 14:16:00 38.2 Below low normal 40. 0-48.4 (%) Final MCV 04/15/2024 14:16:00 85.1 82.0-99.5 (fL) Final MCH 04/15/2024 14:16:00 29.2 27.0-34.0 (pg) Final MCHC 04/15/2024 14:16:00 34.3 32.0-36.0 (g/dL) Final RDW 04/15/2024 14:16:00 15.4 11.5-15.5 (%) Final Platelets 04/15/2024 14:16:00 255 140-400 (K /uL) Final MPV 04/15/2024 14:16:00 8.4 6.6-11.1 ( fL) Final Performing Location [facility] [place] 57[address] 0 - [address] [place] [address]
--- OUTSIDE RECORDS SUMMARY | 2024-04-22 03:26 | External Medical Summary | Summary of Care ---
Author Name Unknown Organization [facility] Address [address] [facility] [place] [address] Phone [phone] Care Team Providers Care Optical Effects Layout Person Name Role Phone Nisa Goodrich PA-C Primary Care Provider +1 -[phone] Reason for Visit * Reason Comments Outpatient Testing Encounter Details Date Type Department Care Team (Late st Contact Info) Description 04/15/2024 2:30 PM EDT Laboratory Laboratory, [facility] 132 [facility] [place] [address] [facility] [place] [address] Chronic coronary artery disease; Presence of stent in LAD coronary artery; Blood in stool Allergies No known active allergiesdocumented as of [...] mRNA, LNP-s, No Pre serve, 2-Dose Series ([employer]) 07/30/2021,11/30/2020,11/09/2020 COVID-19, MRNA-LNP, 23-24, P F, 30 MCG/0.3 mL, 12 YRS AND ABOVE, IM ([employer]-Comirnaty) 06/30/2023 Covid-19, Mrna, Lnp-s, Pf, B ivalent, 30 Mcg, IM, 12 yrs and above ([employer]) 06/20/2022 HEP A - Hepatitis A (Adult [...] 04/16/2024 10:30 AM EDT Office Visit Cardiology, [facility] [address] [place] [address] Rosa Fajardo PA-C [address] [place] [address] 05/17/2024 8:00 AM EDT Office Visit Pharmacy, [facility] [address] [place] [address] [facility] [address] [place] [address] 07/01/2024 9:16 AM EDT Hospital Encounter OR [facility], Operating Room, [facility] - 4th Floor [address] [place] [address] Marciano Lopez MD [address] [address] 07/01/2024 9:16 AM EDT - 07/01/2024 9:52 AM EDT Surgery OR [facility], Operating Room, [facility] - 4th Floor [address] [place] [address] Marciano Lopez MD [address] [place] [address] COLONOSCOPY FLEXIBLE PROXIMAL DIAGNOSTIC 09/06/2024 11:00 AM EST [address] [phone] Nisa Goodrihc PA-C [address] [place] [address] 09/08/2024 7:40 AM EST Office Visit [facility] [place] [address] [facility] [phone] Alonso Daigle MD [address] [place] [facility] [place] [address] 09/14/2024 8:45 AM EST Office Visit [facility]opaedics Spine Surgery, [address] [place] [address] Kleber Batres MD [address] [place] [address] Pending Results Name Type Priority Associated Diagnoses Date /Time BASIC METABOLIC PANEL Lab Routine Chronic coronary artery disease Presence of stent in LAD coronary artery Blood in stool 04/15/2024 2:16 PM EDT Scheduled Procedures Name Priority Associated [...] Eye Exam 10/07/2024 10/07/2023, 09/08/2020 Albumin/Creatinine Ratio 10/08/202410/08/2 024, 05/10/2022, 09/24/2021, Additional history exists B-12 10/08/2024 10/08/2023, 090 05/2022, 02/09/2021, Additional history exists GFR 03/08/2025 03/08/2024, 020 03/2024, 09/12/2022, Additional history exists Colonoscopy 05/07/2028 [...] Procedure Name Priority Date/Time Associated Diagnosis Comments CBC Routine 04/15/2024 2:16 PM EDT Chronic coronary artery disease Presence of stent in LAD coronary artery Blood in stool documented in this encounter Results * (ABNORMAL) CBC (04/15/2024 2:16 PM EDT) WBC 7.23 4.00 - 10.80 K/uL 04/15/2024 2:28 PM EDT [facility] RBC 4.49 4.50 - 5.25 M/uL 04/15/2024 2:28 PM EDT [facility] [place] [facility]10 HGB 13.1(L) 14.0 - 16.8 g/dL 04/15/2024 2:28 PM EDT [facility] [place] [facility]10 HCT 38.2(L) 40.0 - 48.4 % 04/15/2024 2:28 PM EDT [facility] [place] [facility] MCV 85.1 82.0 - 99.5 fL 04/15/2024 2:28 PM EDT [facility] [place] [facility] MCH 29.2 27.0 - 34.0 pg 04/15/2024 2:28 PM EDT [facility] [place] [facility] MCHC 34.3 32.0 - 36.0 g/dL 04/15/2024 2:28 PM EDT [facility] [place] [facility] RDW 15.4 11.5 - 15.5 % 04/15/2024 2:28 PM EDT [facility] [place] [facility]10 PLT 255 140 - 400 K/uL 04/15/2024 2:28 PM EDT [facility] [place] [facility] MPV 8.4 6.6 - 11.1 fL 04/15/2024 2:28 PM EDT [facility] [place] [facility]-10 Blood Venous blood specimen / Unknown Venipuncture / Unknown 04/15/2024 2:16 PM EDT 04/15/2024 2:16 PM EDT Mickey Montero DO LAB BLOOD ORDERABLES [facility] [place] [address] [place] [address] documented in this encounter Visit Diagnoses Diagnosis Chronic coronary artery disease Coronary atherosclerosis of unspecified type of vessel, [place] or graft Presence of stent in LAD coronary artery Postsurgical percutaneous transluminal coronary angioplasty status Blood in stool Blood in stool documented in this encounter Advance Directives * Full Code (Latest Code Status on File) Date Activated Date Inactivated Comments 07/05/2019 10:32 AM 07/05/2019 4:23 PM This order reflects the patients wishes and were consensually agreed upon. Care Teams Optical Effects Layout Person Relationship Specialty Start Date End Date iNsa Goodrich PA-C [address] [facility] [address] PCP - General Physician Vascular Surgery Physician 03/14/24 documented as of this encounter
--- OUTSIDE RECORDS SUMMARY | 2024-04-22 03:26 | External Medical Summary | Summary of Care ---
Author Name Unknown Organization [facility] Address [address] [facility] [place] [address] Phone [phone] Care Team Providers Care Correctional Supervisor Name Role Phone Nisa Goodrich PA-C Primary Care Provider [phone] -[phone] Reason for Visit * Reason Onset Date Comments Advice 03/22/2024 Encounter Details Date Type Department Care Team (Late st Contact Info) Description 03/22/2024 Telephone Cardiology, [facility] [address] [facility] [address] [place] [address] Rosa Fajardo PA-C [address] [facility] [place] [address] Advice Allergies No known active allergiesdocumented as [...] mRNA, LNP-s, No Pre serve, 2-Dose Series ([employer]) 07/30/2021,11/30/2020,11/09/2020 COVID-19, MRNA-LNP, 23-24, P F, 30 MCG/0.3 mL, 12 YRS AND ABOVE, IM ([employer]-Comir[employer]) 06/30/2023 Covid-19, Mrna, Lnp-s, Pf, B ivalent, [...] the original note were not included. Socorro Gray RN You2 weeks ago He is not a candidate for [facility]. Must be able to hold the Brilinta and must be at least 6 months outfrom stent placement for here. He will need hospital setting Socorro Stone * Telephone Encounter - Bere Bhatt [facility] - 03/23/2024 9:12 AM EDT Pt called back to schedule, states he had stent placed about a month ago at [place]. Pt states he is taking ASA/Brilinta. Please [...] 04/16/2024 10:30 AM EDT Office Visit Cardiology, [facility] [address] [place] [address] Rosa Fajardo PA-C [address] [place] [address] 05/17/2024 8:00 AM EDT Office Visit Pharmacy, [facility] [address] [place] [address] [facility] [address] [place] [address] 09/06/2024 11:00 AM EST [facility] [place] [address] [facility] [phone] Nisa Goodrich PA-C [facility] [address] 09/08/2024 7:40 AM EST Office Visit [facility] [place] [address] [place] [phone] Alonso Daigle MD [address] [facility] [place] [address] 09/14/2024 8:45 AM EST Office Visit [facility]ed[facility] Sp[facility], [place] [address] [place] [address] Kleber Batres MD [address] [place] [address] Scheduled Procedures Name Priority Associated Diagnoses Date/Ti [...] testing COLONOSCOPY FLEXIBLE PROXIMA L DIAGNOSTIC Recall Blood in stool Health Maintenance Due Date Last Done Comments Hepatitis C Screening 1974 Cologuard 2001 Fecal Occult Blood Test 2001 Sigmoidoscopy 2001 Depression Screening 05/05/2021 05/05/2020 Pneumococcal Vaccine: 65+ Years (2 of 2 - PCV) 07/30/2022 07/30/2021, 09/12/2011 Adult Wellness Visit 2022 COVID-19 Vaccine ( - 2022-24 season) 2023 06/30/2023, 06/20/2022, 07/30/2021, Additional history [...] and were consensually agreed upon. Care Teams Correctional Supervisor Relationship Specialty Start Date End Date Nisa Goodrich PA-C [address] [place] [address] PCP - General Physician Cloud Operations Engineer 03/14/24 documented as of this encounter
--- OUTSIDE RECORDS SUMMARY | 2024-04-22 03:27 | External Medical Summary | Summary of Care ---
Author Name Unknown Organization [facility] Address [address] [facility] [address] Phone [phone] Care Team Providers Care Pocket And Pulley Machine Operator Name Role Phone Alonso Daigle MD Primary Care Provider [phone]- [phone] Reason for Visit * Reason Comments Outpatient Testing Encounter Details Date Type Department Care Team (Late st Contact Info) Description 03/08/2024 1:00 PM EDT Laboratory Laboratory, [facility] [address] [facility] [address] [facility] [address] [facility] [place] [address] Chronic coronary artery disease; HTN, goal below 140/90; Dyslipidemia, goal LDL below 70; Presence of stent in LAD coronary artery Allergies No known active allergiesdocumented as of this encounter (statuses as of 03/08/2024) Medications Medication Sig Dispensed Refills Start Date [...] Active Montelukast Sodium 10 MG Oral Tablet (Singulair)Tyroneo ns:COVID-19 Take 1 Tablet by mouth in [...] Constipation. Active Lisinopril 20 MG Oral Tablet (Prinivil)Indication [...] on 03/08/2024 predniSONE 10 MG Oral Tablet (Deltasone)Tyroneo ns:Viral illness Take 5 tabs for 2 days, 4 tabs for 2 days, 3 tabs for 2 days, 2 tabs for 2 days 1 tab for 2 days 30 Tablet 02/09/2024 Active Additional Information Patient not taking.Reported on 03/08/2024 Gabapentin 100 MG Oral Capsule (Neurontin) TAKE 1 CAPSULE BY MOUTH EVERYDAY AT BEDTIME 02/12/2024 Active Brilinta 90 MG Oral Tablet Take 1 Tablet by mouth in the morning and 1 Tablet before bedtime. 02/12/2024 Active Esomeprazole Magnesium 20 MG Oral Capsule Delayed Release (NexIUM) Take 1 Capsule by mouth daily before breakfast. Active Metoprolol Succinate ER 25 MG Oral Tablet Extended Release 24 Hour (toPROL XL) 0.5 Tablets. 02/12/2024 Active documented as of this encounter (statuses as of 03/08/2024) Active Problems Problem Noted Date Diagnosed Date [...] as of this encounter (statuses as of 03/08/2024) Resolved Problems Problem Noted Date Diagnosed Date [...] as of this encounter (statuses as of 03/08/2024) Immunizations Name Administration Dates Next Due COVID-19 mRNA, LNP-s, No Pre serve, 2-Dose Series ([employer]) 07/30/2021,11/30/2020,11/09/2020 COVID-19, MRNA-LNP, 23-24, P F, 30 MCG/0.3 mL, 12 YRS AND ABOVE, IM ([employer]) 06/30/2023 Covid-19, Mrna, Lnp-s, Pf, B ivalent, 30 Mcg, IM, 12 yrs and above ([employer]) 06/20/2022 HEP A - Hepatitis A (Adult [...] Care Team (Late st Contact Info) Description 03/12/2024 8:30 AM EDT Office Visit Orthopaedics Spine Surgery, [place] [address] [place] [address] Kleber Batres MD [address] [place] [address] 04/16/2024 10:30 AM EDT Office Visit Cardiology, [facility] [address] [place] [address] Rosa Fajarod PA-C [address] [place] [address] 05/17/2024 8:00 AM EDT Office Visit Pharmacy, [facility] [address] [place] [address] [facility] [address] [place] [address] 09/06/2024 11:00 AM EST Office Visit [place] [address] [place] [phone] Nisa Goodrich PA-C [address] [place] [address] 09/08/2024 7:40 AM EST Office Visit [facility] [address] [place] [phone] Alonso Daigle MD [address] [place], [place] [phone] Pending Results Name Type Priority Associated Diagnoses Date /Time COMPREHENSIVE METABOLIC PANEL Lab Routine Chronic coronary artery disease HTN, goal below 140/90 Dyslipidemia, goal LDL below 70 Presence of stent in LAD coronary artery 03/08/2024 12:42 PM EDT LDL CHOLESTEROL (DIRECT MEASURE) Lab Routine Chronic coronary artery disease HTN, goal below 140/90 Dyslipidemia, goal LDL below 70 Presence of stent in LAD coronary artery 03/08/2024 12:42 PM EDT MAGNESIUM Lab Routine Chronic coronary artery disease HTN, goal below 140/90 Dyslipidemia, goal LDL below 70 Presence of stent in LAD coronary artery 03/08/2024 12:42 PM EDT BNP, NT-PRO Lab Routine Chronic coronary artery disease HTN, goal below 140/90 Dyslipidemia, goal LDL below 70 Presence of stent in LAD coronary artery 03/08/2024 12:42 PM EDT Scheduled Procedures Name Priority Associated [...] 07/20/2021, Additional history exists HbA1c 08/17/2024 02/16/2024, 0503/2024, 10/08/2023, Additional history exists Diabetic Foot Exam [...] Priority Date/Time Associated Diagnosis Comments CBC Routine 03/08/2024 12:42 PM EDT Chronic coronary artery disease HTN, goal below 140/90 Dyslipidemia, goal LDL below 70 Presence of stent in LAD coronary artery documented in this encounter Results * (ABNORMAL) CBC (03/08/2024 12:42 PM EDT) WBC 7.14 4.00 - 10.80 K/uL 03/08/2024 12:52 PM EDT [facility] [place] [facility] RBC 4.82 4.50 - 5.25 M/uL 03/08/2024 12:52 PM EDT [facility] [place] [facility]10 HGB 13.7(L) 14.0 - 16.8 g/dL 03/08/2024 12:52 PM EDT [facility] [place] [facility]10 HCT 41.1 40.0 - 48.4 % 03/08/2024 12:52 PM EDT [facility] [place] [facility]10 MCV 85.3 82.0 - 99.5 fL 03/08/2024 12:52 PM EDT [facility] [place] 57-10 MCH 28.4 27.0 - 34.0 pg 03/08/2024 12:52 PM EDT [facility] [place] [facility]10 MCHC 33.3 32.0 - 36.0 g/dL 03/08/2024 12:52 PM EDT [facility] [place] [facility]10 RDW 15.7 11.5 - 15.5 % 03/08/2024 12:52 PM EDT [facility] [place] 57-10 PLT 272 140 - 400 K/uL 03/08/2024 12:52 PM EDT [facility] [place] 57-10 MPV 9.0 6.6 - 11.1 fL 03/08/2024 12:52 PM EDT [facility] [place] [facility]10 Blood Venous blood specimen / Unknown Venipuncture / Unknown 03/08/2024 12:42 PM EDT 03/08/2024 12:42 PM EDT Rosa Fajardo PA-C LAB BLOOD ORDE [facility] Organization Address City/State/ZIP Co de Phone Number [facility] [place] [phone] [place] [address] documented in this encounter Visit Diagnoses Diagnosis Chronic coronary artery disease Coronary atherosclerosis of unspecified type of vessel, pit river or graft HTN, goal below 140/90 Unspecified essential hypertension Dyslipidemia, goal LDL below 70 Other and unspecified hyperlipidemia Presence of stent in LAD coronary artery Postsurgical percutaneous transluminal coronary angioplasty status documented in this encounter Advance Directives * Full Code (Latest Code Status on File) Date Activated Date Inactivated Comments 07/05/2019 10:32 AM 07/05/2019 4:23 PM This order reflects the patients wishes and were consensually agreed upon. Care Teams Pocket And Pulley Machine Operator Relationship Specialty Start Date End Date Alonso Daigle MD [address] [place] [address] PCP - General 08/28/01 documented as of this encounter
--- OUTSIDE RECORDS SUMMARY | 2024-04-22 03:27 | External Medical Summary | Summary of Care ---
Author Name Unknown Organization [facility] Address [address] [facility] [place] [address] Phone [phone] Care Team Providers Care Bus Aide Name Role Phone Alonso Daigle MD Primary Care Provider [phone]- [phone] Reason for Visit * Reason Comments Follow Up Cervical stenosis Ce rvical spondylotic myelopathy Left upper extremity dysfunction/weaknessChronic neck painLongstanding bladder dysfunctionEMG 02/26/2024 Seen by Cardio on 03/08/2024 Encounter Details Date Type Department Care Team (Late st Contact Info) Description 03/12/2024 8:30 AM EDT Office Visit Orthopaedics Spine Surgery, [place] [address] [place] [address] Kleber Batres MD [address] [place] [address] Cervical spine pain*; Cervical spinal stenosis; Spondylosis, cervical, with myelopathy; Chronic neck pain Allergies No known active allergiesdocumented as of this encounter (statuses as of 03/12/2024) Medications Medication Sig Dispensed Refills Start Date [...] Additional Information Patient not taking.Reported on 03/08/2024 Brilinta 90 MG Oral Tablet Take 1 [...] at bedtime. 90 Capsule 1 03/12/2024 Active Gabapentin 100 MG Oral Capsule (Neurontin) TAKE 1 CAPSULE BY MOUTH EVERYDAY AT BEDTIME 02/12/2024 4 Discontinu ed(Refill) documented as of this encounter (statuses as of 03/12/2024) Active Problems Problem Noted Date Diagnosed Date [...] as of this encounter (statuses as of 03/12/2024) Resolved Problems Problem Noted Date Diagnosed Date [...] as of this encounter (statuses as of 03/12/2024) Immunizations Name Administration Dates Next Due COVID-19 mRNA, LNP-s, No Pre serve, 2-Dose Series ([employer]) 07/30/2021,11/30/2020,11/09/2020 COVID-19, MRNA-LNP, 23-24, P F, 30 MCG/0.3 mL, 12 YRS AND ABOVE, IM ([facility]) 06/30/2023 Covid-19, Mrna, Lnp-s, Pf, B ivalent, 30 Mcg, IM, 12 yrs and above ([employer]) 06/20/2022 HEP A - Hepatitis A (Adult [...] Pressure - - Pulse - - Temperature 36.7 C (98 F) 03/12/2024 8:37 AM EDT Respiratory Rate - - Oxygen Saturation - - Inhaled Oxygen Concentration - - Weight 113.9 kg (251 lb) 03/12/2024 8:37 AM EDT Height 172.7 cm (5' 8") 03/12/2024 8:37 AM EDT Body Mass Index 38.16 03/12/2024 8:37 AM EDT documented in this encounter Progress Notes * Kleber Batres MD - 03/12/2024 8:48 AM EDT Date of service: 03/12/2024 Almas Pack is a 68 year old male presents for a follow up visit with history of persistent neck pain with upper extremity radiculopathy. These have been longstanding symptoms. Patient has completed the standard conservative treatment. He was awaiting surgical intervention but had some cardiac issues. He is presently on dual antiplatelet agents following cardiac stent placement and as per the cardiology recommendations his surgery may have to be delayed by 6 months. Patient denies any acute neurological worsening. Prior history: Allergies: Patient has no known allergies. The past medical, surgical, medication, family, social history was reviewed and has been documentedelsewhere in the chart ROS: Negative except as outlined in HPI Vitals: Temp 36.7 C (98 F) (Temporal Artery) | Ht 1.727 m (5' 8") | Wt 113.9 kg (251 lb) | BMI 38.16 kg/m | BSA 2.34 m Body mass index is 38.16 kg/m. Physical Exam: General: alert, healthy and no distress. The general appearance appears normal. Cardiovascular system: Vascular status grossly preserved in the extremities Spine evaluation cervical, thoracic and lumbar: Overlying skin unremarkable. No paraspinal swellingin the paraspinal and periscapular region. No obvious deformity. Neurological examination: Gross motor power Upper extremities - Bilateral shoulder abductors, elbow flexors, triceps, wrist flexors and extensors and intrinsic muscles of the hand 5/5. Lower extremities - Bilateral hip flexors, knee extensors, ankle dorsiflexors, ankle plantar flexors, EHL/EDL, FHL/FDL 5/5. TThe deep tendon reflexes - Bilateral Biceps, triceps, [...] the risks, benefits and alternatives were discussed. At this point patient is neurologically stable. His surgery has to be delayed by 6 months because of cardiology recommendations until his dual antiplatelet agents can be stopped. In the meantime warning signs were explained. Patient was given gabapentin for symptomatic relief as per his request. Adverse effects and precautions were discussed. Soft neck brace was provided. Modalities of pain relief discussed. Surgical indication: C4-5, C5-6, C6-7 stenosis with [...] workup: 1. Clearance by the primary care as well as Cardiology. Patient is currently on dual antiplatelet agents and we will have to wait at least for 6 months before this can be discontinued for the patientto have a surgical intervention 2. Investigations for medical optimization 3. CT [...] complications that need specialties not available at [facility] skin abrasions related to positioning and taping [...] Warning signs have been discussed. Follow up: Patient is to follow-up in 6 months for reassessment and for surgical scheduling. Patient to reach out earlier if any worsening of symptoms. The patient expressed understanding and agreement to the plan. Complexity of decision making: High I spent 30 minutes on 03/12/2024 in preparation, delivery and documentation of the care provided to the patient, excluding any time spent on the performance of the procedure are separately billable service. Kleber Batres MD This chart was completed in part utilizing [employer] Speech Voice Recognition Software. Grammatical errors, random [...] Nursing Notes * Nazia Amaya LPN - 03/12/2024 8:30 AM EDT F/U Cervical stenosis Cervical spondylotic myelopathy Left upper extremity dysfunction/weakness Chronic neck pain Longstanding bladder dysfunction EMG 02/26/2024 Patient notes Gabapentin is helping Diabetic last A1C 02/16/2024 7.5 Seen by Cardio on 03/08/2024 Cervical spinal surgery, will need to be delayed at least 6 months due to dual Antiplatelet therapy. Patient is starting starting cardiac rehab next appt is 04/16/2024 documented in this encounter Plan of Treatment Upcoming Encounters Date Type Department Care Team (Late st Contact Info) Description 04/16/2024 10:30 AM EDT Office Visit Cardiology, [facility] [address] [facility] [place], [place] [address] Rosa Fajardo PA-C [address] [place] [address] 05/17/2024 8:00 AM EDT Office Visit Pharmacy, [facility] [address] [place] [address] [facility] 132 [facility] [place], [place] [address] 09/06/2024 11:00 AM EST Office Visit [place] [address] [place] [phone] Nisa Goodrich PA-C [address] [place] [address] 09/08/2024 7:40 AM EST Office Visit [place] [address] [place] [address] Alonso Daigle MD [address], [place] [phone] 09/14/2024 8:45 AM EST Office Visit Orthopaedics Spine Surgery, [place] [address] [place] [address] Kleber Batres MD [address] [place] [...] Pre-op testing OBTAIN AUTOGRAFT FOR SPINE S CITLALLIERY MORSELIZED SEPARATE INCISION Cervical spine pain Cervical [...] of this encounter Visit Diagnoses Diagnosis Cervical spine pain- Primary Cervicalgia Cervical spinal stenosis Spinal stenosis in cervical region Spondylosis, cervical, with myelopathy Cervical spondylosis with myelopathy Chronic neck pain Cervicalgia documented in this encounter Advance Directives * Full Code (Latest Code Status on File) Date Activated Date Inactivated Comments 07/05/2019 10:32 AM 07/05/2019 4:23 PM This order reflects the patients wishes and were consensually agreed upon. Care Teams Bus Aide Relationship Specialty Start Date End Date Alonso Daigle MD [address] [place] [address] PCP - General 08/28/01 documented as of this encounter
--- OUTSIDE RECORDS SUMMARY | 2024-04-22 03:27 | External Medical Summary | Summary of Care ---
Author Name Unknown Organization [facility] Address [address] [facility] [address] Phone [phone] Care Team Providers Care Tool Repair Technician Name Role Phone Nisa Goodrich PA-C Primary Care Provider [phone] [phone] Reason for Referral * Ancillary Services (Within 3 days (urgent)) - Authorized Specialty Diagnoses / Procedures Referred By Contgo t Referred To Contact Gastroenterology Diagnoses Blood in stool Alex Topete DO [address] [place] [address] Referral ID Status Reason Start Date Expiration Date Visits Requested Visits Authorized [id number] Authorized Ancillary Services Required 03/22/2024 999 999 Question Answer Referral Priority Within 3 days (urgent) Where should this appointment be scheduled? Tess Jacobsen ALERT: Do not order for pediatric patients (18 years or younger). Cancel off screen and order PEDS GASTROENTEROLOGY CONSULT (Type: 1 visit only-Evaluate and Treat) The following Pt. Instructions are available: - Gastro Colonoscopy Prep Instructions [[id number]] - Gastro Colonoscopy Prep Instructions (Emirati Version) [[id number]] Go to the Pt. Instructions section within the Visit Navigator to access. Colonoscopy ASGE Guidelines: Hematochezia ADDITIONAL INFORMATION 1. Is the patient on Coumadin? No 2. Is the patient on Pradaxa? No Reason for Visit * Reason Comments Chest Pain Pt has noted chest p ain, "like elephant on chest" since last week on/off, worse at night. Pt states he was at [facility] in February 09, for chest pain. Troponin negative per pt. Non stress echo was + ischemia and V-tach, stent was applied and pt continues Brillinta twice daily. Having SOB x 1 month. Bright red blood when having BM over the past 1 week. No constipation noted. Encounter Details Date Type Department Care Team (Scott goldsmith Contact Info) Description 03/22/2024 2:00 PM EDT Office Visit [facility] [address] [place] [address] Alex Topete DO [address] [place] [address] Blood in stool*; Rectal bleeding; Type 2 diabetes mellitus with hemoglobin A1c goal of less than 7.0% ([facility]); Chronic coronary artery disease; Presence of stent in LAD coronary artery; HTN, goal below 140/90 Allergies No known [...] mRNA, LNP-s, No Pre serve, 2-Dose Series (wywy) 07/30/2021,11/30/2020,11/09/2020 COVID-19, MRNA-LNP, 23-24, P F, 30 MCG/0.3 mL, 12 YRS AND ABOVE, IM (Unocoin-Comirnaty) 06/30/2023 Covid-19, Mrna, Lnp-s, Pf, B ivalent, 30 Mcg, IM, 12 yrs and above (wywy) 06/20/2022 HEP A - Hepatitis A (Adult [...] Sign Reading Time Taken Comments Blood Pressure 106/60 03/22/2024 1:44 PM EDT Pulse 78 03/22/2024 1:44 PM EDT Temperature 36.1 C (96.9 F) 03/22/2024 1:44 PM ED T Respiratory Rate 16 03/22/2024 1:44 PM EDT Oxygen Saturation 96% 03/22/2024 1:44 PM EDT Inhaled Oxygen Concentration - - Weight 113.5 kg (250 lb 5 oz) 03/22/2024 1:44 PM EDT Height - - Body Mass Index 38.06 03/12/2024 8:37 AM EDT documented in this encounter Progress Notes * Alex Topete, DO - 03/22/2024 1:48 PM EDT Images from the original note were not included. Assessment and Plan Blood in stool Suspect internal hemorrhoidal bleeding based on bright red blood in stool, given age and recent initiation of blood thinners, also possible that it is sigmoid or rectal related - would advise f/u CBCtoday and would also advise f/u with colonoscopy Cardiology would like patient to stay on blood thinners if at all possible - COLONOSCOPY, GI REFERRAL OP - CBC WITH WBC DIFFERENTIAL; Future Rectal bleeding As above - Hydrocortisone Acetate 25 MG Rectal Suppository (Anusol-HC); Administer into the rectum 2 times aday in the morning and at bedtime as needed for Hemorrhoids. Up to 2 weeks. - CBC WITH WBC DIFFERENTIAL; Future Type 2 diabetes mellitus with hemoglobin A1c goal of less than 7.0% ([facility]) Continue to f/u with labs Chronic coronary artery disease Advise f/u with cardiology Presence of stent in LAD coronary artery Suspect this is causing his current sensation of chest pain, however would like him to still f/u with cardiology regarding it - no other symptoms associated with the chest pain that would indicate current coronary syndrome HTN, goal below 140/90 stable History of Present Illness Almas Pack is a 68 year old male that presents for Chest Pain (Pt has noted chest pain, "like elephant on chest" since last week on/off, worse at night. Pt states he was at [facility] in February 09, for chest pain. Troponin negative per pt. Non stress echo was + ischemia and V-tach, stent was applied and pt continues Brillinta twice daily. Having SOB x 1 month. Bright red blood when having BM over the past 1 week. No constipation noted.) Patient presents today for acute eval regarding Chest pain after stenting earlier this month Reached out to cardiology, advised to come in to see PCP Has been having rectal bleeding as well, bright red and in toilet bowl Doesn't seem to be mixed into stool from what he can see But he isn't sure and he hasn't had hemorrhoidal bleeding in past Some generalized malaise Physical Exam Vitals: 03/22/24 1344 Temp: 36.1 C (96.9 F) Pulse: 78 Resp: 16 SpO2: 96% BP: 106/60 Wrap-Up Follow Up: Return if symptoms worsen or fail to improve. Time: Total time today was 41 minutes excluding any time spent in the performance of separately billed services. documented in this encounter Plan of Treatment Upcoming Encounters Date Type Department Care Team (Late st Contact Info) Description 04/16/2024 10:30 AM EDT Office Visit Cardiology, [facility] [address] [facility] [place] [address] Rosa Fajardo PA-C [address] [place] [address] 05/17/2024 8:00 AM EDT Office Visit Pharmacy, [facility] [address] [facility] [place] [address] [facility] [address] [place] [address] 09/06/2024 11:00 AM EST [address] [phone] Nisa Goodrich PA-C [address] [facility] [address] 09/08/2024 7:40 AM EST Office Visit [facility] [address] [place] [phone] Alonso Daigle MD [address] [place], [place] [phone] 09/14/2024 8:45 AM EST Office Visit Orthopaedics Spine Surgery, [place] [address] [place] [address] Kleber Batres MD [address] [place] [address] Scheduled Procedures Name Priority Associated Diagnoses Date/Ti [...] Type Priority Associated Diagnoses Orde r Schedule COLONOSCOPY, GI REFERRAL OP Referral Within 3 days (urgent) Blood in stool Ordered: 03/22/2024 Health Maintenance Due Date Last Done Comments Hepatitis C Screening 1974 Cologuard 2001 Fecal Occult Blood Test 2001 Sigmoidoscopy 2001 Depression Screening 05/05/2021 05/05/2020 Pneumococcal Vaccine: 65+ Years (2 of 2 - PCV) 07/30/2022 07/30/2021, 09/12/2011 COVID-19 Vaccine (6 - 2022-24 season) 2023 06/30/2023, 06/20/2022, 07/30/2021, [...] as of this encounter Visit Diagnoses Diagnosis Blood in stool- Primary Rectal bleeding Hemorrhage of rectum and anus Type 2 diabetes mellitus with hemoglobin A1c goal of less than 7.0% (HCC) Chronic coronary artery disease Coronary atherosclerosis of unspecified type of vessel, akhiok or graft Presence of stent in LAD coronary artery Postsurgical percutaneous transluminal coronary angioplasty status HTN, goal below 140/90 Unspecified essential hypertension documented in this encounter Advance Directives * Full Code (Latest Code Status on File) Date Activated Date Inactivated Comments 07/05/2019 10:32 AM 07/05/2019 4:23 PM This order reflects the patients wishes and were consensually agreed upon. Care Teams Tool Repair Technician Relationship Specialty Start Date End Date Nisa Goodrich PA-C [address] [place] [address] PCP - General Physician Pigment And Lacquer Mixer 03/14/24 documented as of this encounter
--- OUTSIDE RECORDS SUMMARY | 2024-04-22 03:27 | External Medical Summary | Summary of Care ---
Author Name Unknown Organization [facility] Address [address] [facility] [place] [address] Phone [phone] Care Team Providers Care Sheet Heater Name Role Phone Nisa Goodrich PA-C Primary Care Provider [phone] [phone] Reason for Visit * Reason Comments Outpatient Testing Encounter Details Date Type Department Care Team (Late st Contact Info) Description 03/22/2024 2:30 PM EDT Laboratory Laboratory, [facility] [address] [facility] [place] [phone] [facility] [address] [facility] [place] [address] Blood in stool; Rectal bleeding Allergies No known active allergiesdocumented as of [...] mRNA, LNP-s, No Pre serve, 2-Dose Series (RecoVend) 07/30/2021,11/30/2020,11/09/2020 COVID-19, MRNA-LNP, 23-24, P F, 30 MCG/0.3 mL, 12 YRS AND ABOVE, IM (Koalify-Comirnaty) 06/30/2023 Covid-19, Mrna, Lnp-s, Pf, B ivalent, [...] 04/16/2024 10:30 AM EDT Office Visit Cardiology, [facility] [place] [address] Rosa Fajardo PA-C [address] [place] [address] 05/17/2024 8:00 AM EDT Office Visit Pharmacy, [facility] [place] [address] [facility] [address] 09/06/2024 11:00 AM EST Office Visit [place] [address] [address] [facility] [place] [phone] Nisa Goodrich PA-C [address] [place] [address] 09/08/2024 7:40 AM EST Office Visit [place] [address] [facility] [phone] Alonso Daigle MD [address] [place] [address] 09/14/2024 8:45 AM EST Office Visit Orthopaedics Spine Surgery, [facility] [place] [address] [place] [address] Kleber Batres MD [address] [place] [address] Scheduled Procedures Name Priority Associated Diagnoses Date/Ti [...] 10/08/2023, 05/2022, 02/09/2021, Additional history exists GFR 03/08/2025 03/08/2024, 03/2024, 09/12/2022, Additional history exists Colonoscopy 05/07/2028 05/07/2018, 01/2018, [...] Procedure Name Priority Date/Time Associated Diagnosis Comments DIFFERENTIAL, AUTOMATED Routine 03/22/2024 2:43 PM EDT Blood in stool Rectal bleeding CBC Routine 03/22/2024 2:43 PM EDT Blood in stool Rectal bleeding CBC Routine 03/22/2024 2:43 PM EDT Blood in stool Rectal bleeding documented in this encounter Results * (ABNORMAL) DIFFERENTIAL, AUTOMATED (03/22/2024 2:43 PM EDT) WBC 7.15 4.00 - 10.80 K/uL 03/22/2024 2:49 PM EDT [facility] Neutrophils % 48.2 40.0 - 75.0 % 03/22/2024 2:49 PM EDT [facility] [place] [facility] Lymphocytes % 34.8 18.0 - 42.0 % 03/22/2024 2:49 PM EDT [facility] Monocytes % 12.3(H) 1.0 - 11.0 % 03/22/2024 2:49 PM EDT [facility] [place] [facility] Eosinophils % 4.1 0.0 - 6.0 % 03/22/2024 2:49 PM EDT [facility] [place] [facility] Basophils % 0.6 0.0 - 2.0 % 03/22/2024 2:49 PM EDT [facility] Absolute Neutrophils 3.45 1.80 - 7.70 K/uL 03/22/2024 2:49 PM EDT [facility] [place] [facility] Absolute Lymphocytes 2.49 1.00 - 4.80 K/ul 03/22/2024 2:49 PM EDT [facility] Absolute Monocytes 0.88 0.00 - 1.10 K/uL 03/22/2024 2:49 PM EDT [facility] Absolute Eosinophils 0.29 0.00 - 0.70 K/uL 03/22/2024 2:49 PM EDT [facility] Absolute Basophils 0.04 0.00 - 0.20 K/uL 03/22/2024 2:49 PM EDT [facility] Blood Venous blood specimen / Unknown Venipuncture / Unknown 03/22/2024 2:43 PM EDT 03/22/2024 2:43 PM EDT Alex Topete DO LAB BLOOD ORDER [facility] [place] [address] [facility] [place] [address] * (ABNORMAL) CBC (03/22/2024 2:43 PM EDT) [facility] WBC 7.15 4.00 - 10.80 K/uL 03/22/2024 2:49 PM EDT [facility] RBC 4.48 4.50 - 5.25 M/uL 03/22/2024 2:49 PM EDT [facility] HGB 13.1(L) 14.0 - 16.8 g/dL 03/22/2024 2:49 PM EDT [facility] HCT 38.4(L) 40.0 - 48.4 % 03/22/2024 2:49 PM EDT [facility] MCV 85.7 82.0 - 99.5 fL 03/22/2024 2:49 PM EDT [facility] MCH 29.2 27.0 - 34.0 pg 03/22/2024 2:49 PM EDT [facility] MCHC 34.1 32.0 - 36.0 g/dL 03/22/2024 2:49 PM EDT [facility] RDW 15.4 11.5 - 15.5 % 03/22/2024 2:49 PM EDT [facility] PLT 243 140 - 400 K/uL 03/22/2024 2:49 PM EDT [facility] MPV 8.6 6.6 - 11.1 fL 03/22/2024 2:49 PM EDT [facility] Blood Venous blood specimen / Unknown Venipuncture / Unknown 03/22/2024 2:43 PM EDT 03/22/2024 2:43 PM EDT Alex Topete DO LAB BLOOD ORDER [facility] [place] [facility] [address] [place] [address] documented in this encounter Visit Diagnoses Diagnosis Blood in stool Rectal bleeding Hemorrhage of rectum and anus documented in this encounter Advance Directives * Full Code (Latest Code Status on File) Date Activated Date Inactivated Comments 07/05/2019 10:32 AM 07/05/2019 4:23 PM This order reflects the patients wishes and were consensually agreed upon. Care Teams Sheet Heater Relationship Specialty Start Date End Date Nisa Goodrich PA-C [address] [place] [address] PCP - General Physician Flight Instructor 03/14/24 documented as of this encounter
--- OUTSIDE RECORDS SUMMARY | 2024-04-22 03:27 | External Medical Summary | Summary of Care ---
Author Name Unknown Organization [facility] Address [address] [facility] [place] [address] Phone [phone] Care Team Providers Care Remarketing Rep Name Role Phone Nisa Goodrich PA-C Primary Care Provider [phone] [phone] Reason for Visit * Reason Onset Date Comments Advice 03/22/2024 Encounter Details Date Type Department Care Team (Late st Contact Info) Description 03/22/2024 Telephone Cardiology, [facility] [address] [place] [address] Rosa Fajardo PA-C [address] [place] [address] Advice Allergies No known active allergiesdocumented as [...] mRNA, LNP-s, No Pre serve, 2-Dose Series (wutabout) 07/30/2021,11/30/2020,11/09/2020 COVID-19, MRNA-LNP, 23-24, P F, 30 MCG/0.3 mL, 12 YRS AND ABOVE, IM (ReVision Optics-Comirnaty) 06/30/2023 Covid-19, Mrna, Lnp-s, Pf, B ivalent, [...] encounter Miscellaneous Notes * Telephone Encounter - Aleah Cormier OSA [...] 04/16/2024 10:30 AM EDT Office Visit Cardiology, [facility] [address] [facility] [place] [address] Rosa Fajardo PA-C 132 [facility] [place] [address] 05/17/2024 8:00 AM EDT Office Visit Pharmacy, [facility] [address] [facility] [place] [address] [facility] 132 [facility] [place] [address] 09/06/2024 11:00 AM EST Office Visit [place] [address] [place] [address] Nisa Goodrich PA-C [address] [place] [address] 09/08/2024 7:40 AM EST Office Visit [place] [address] [place] [facility] [place] [phone] Alonso Daigle MD [address] [place], [place] [phone] 09/14/2024 8:45 AM EST Office Visit [facility], [place] [address] [place] [address] Kleber Batres MD [address] [place] [address] Scheduled Procedures Name Priority Associated Diagnoses [...] and were consensually agreed upon. Care Teams Remarketing Rep Relationship Specialty Start Date End Date Nisa Goodrich PA-C [address] [facility] [place] [address] PCP - General Physician Business Process Manager 03/14/24 documented as of this encounter
--- OUTSIDE RECORDS SUMMARY | 2024-04-22 03:27 | External Medical Summary ---
Author Name Unknown Address Unknown Organization [facility] - [address] [place] [address] Laboratory Report Ordering Provider Test Date Status CHAPO RICHEY 03/22/2024 14:43:07 Final Observation Date Value Abnormality Reference (Units ) Status SYNC LEUKOCYTES IN BLOOD BY AUTOMATED COUNT 03/22/2024 14:43:07 7.15 4.00-10.80 (K/uL) Final Segs 03/22/2024 14:43:07 48.2 40.0-75.0 (%) Final Lymphs % 03/22/2024 14:43:07 34.8 18.0-42.0 (%) Final Monos 03/22/2024 14:43:07 12.3 Above high normal 1.0-11.0 (%) Final Eosinophils 03/22/2024 14:43:07 4.1 0.0-6.0 (%) Final Basos 03/22/2024 14:43:07 0.6 0.0-2.0 (%) Final Absolute Segs 03/22/2024 14:43:07 3.45 1.80-7.70 (K/uL) Final Lymphs, absolute 03/22/2024 14:43:07 2.49 1.00-4.80 (K/ul) Final Monos, Abs 03/22/2024 14:43:07 0.88 0.00-1.10 (K/uL) Final Eos, Abs 03/22/2024 14:43:07 0.29 0.00-0.70 (K/uL) Final Basos, Abs 03/22/2024 14:43:07 0.04 0.00-0.20 (K/uL) Final Performing Location [facility] [address] - [address] [place] [address]
--- OUTSIDE RECORDS SUMMARY | 2024-04-22 03:27 | External Medical Summary | Summary of Care ---
Author Name Unknown Organization [facility] Address [address] [facility] [place] [address] Phone [phone] Care Team Providers Care Replanting Machine Operator Name Role Phone Alonso Daigle MD Primary Care Provider +1- [phone] Reason for Visit * Reason Onset Date Comments Cardiac Rehab 03/10/2024 Encounter Details Date Type Department Care Team (Late st Contact Info) Description 03/10/2024 Telephone Cardiology, [facility] [address] [place] [address] William Snider, [address] [place] [address] Cardiac Rehab Allergies No known active allergiesdocumented as of this encounter (statuses as of 03/10/2024) Medications Medication Sig Dispensed Refills Start Date [...] on 03/08/2024 predniSONE 10 MG Oral Tablet (Deltasone)Indicatio ns:Viral [...] as of this encounter (statuses as of 03/10/2024) Active Problems Problem Noted Date Diagnosed Date [...] as of this encounter (statuses as of 03/10/2024) Resolved Problems Problem Noted Date Diagnosed Date [...] as of this encounter (statuses as of 03/10/2024) Immunizations Name Administration Dates Next Due COVID-19 mRNA, LNP-s, No Pre serve, 2-Dose Series ([employer]) 07/30/2021,11/30/2020,11/09/2020 COVID-19, MRNA-LNP, 23-24, P F, 30 MCG/0.3 mL, 12 YRS AND ABOVE, IM (cityguru-[facility] healthTwijector) 06/30/2023 Covid-19, Mrna, Lnp-s, Pf, B ivalent, 30 Mcg, IM, 12 yrs and above ([employer]) 06/20/2022 HEP A - Hepatitis A (Adult [...] encounter Miscellaneous Notes * Telephone Encounter - Erica Jaquez CMA - 03/10/2024 8:50 AM EDT Faxed LOMN and records to [facility]. Successful confirmation. documented in this encounter Plan of Treatment Upcoming Encounters Date Type Department Care Team (Late st Contact Info) Description 03/12/2024 8:30 AM EDT Office Visit Orthopaedics Spine Surgery, [place] [address] [place] [address] Kleber Batres MD [address] [place] [address] 04/16/2024 10:30 AM EDT Office Visit Cardiology, [facility] [place] [address] Rosa Fajardo PA-C [address] [facility] [place] [address] 05/17/2024 8:00 AM EDT Office Visit Pharmacy, [facility] 132 [facility] [place] [address] [facility] 132 [facility] [place] [address] 09/06/2024 11:00 AM EST Office Visit [place] [address] [facility] [phone] Nisa Goodrich PA-C [address] [facility] [address] 09/08/2024 7:40 AM EST Office Visit [facility] [address] [facility] [phone] Alonso Daigle MD [address] [place] [address] Scheduled Procedures Name Priority Associated Diagnoses Date/Ti [...] PCV) 07/30/2022 07/30/2021, 09/12/2011 COVID-19 Vaccine ( season) 2023 06/30/2023, 06/20/2022, [...] and were consensually agreed upon. Care Teams Replanting Machine Operator Relationship Specialty Start Date End Date Alonso Daigle MD [address] [place] [facility] [place] [address] PCP - General 08/28/01 documented as of this encounter
--- OUTSIDE RECORDS SUMMARY | 2024-04-22 03:27 | External Medical Summary | Summary of Care ---
Author Name Unknown Organization [facility] Address [address] [facility] [place] [address] Phone [phone] Care Team Providers Care Amplifier Mechanic Name Role Phone Nisa Goodrich PA-C Primary Care Provider +1 -[phone] Reason for Visit * Reason Onset Date Comments Test Results 03/11/2024 Encounter Details Date Type Department Care Team (Late st Contact Info) Description 03/11/2024 Telephone Cardiology, [facility] [address] [place] [address] Rosa Fajardo PA-C [address] [place] [address] Test Results Allergies No known active allergiesdocumented as of this encounter (statuses as of 03/15/2024) Medications Medication Sig Dispensed Refills Start Date [...] on 03/08/2024 predniSONE 10 MG Oral Tablet (Deltasone)Beronicatio ns:Viral illness Take 5 tabs for 2 [...] the morning. 90 Tablet 3 03/10/2024 Active Ezetimibe 10 MG Oral Tablet (Zetia) Take 1 Tablet by mouth in the morning. 90 Tablet 3 03/15/2024 Active documented as of this encounter (statuses as of 03/15/2024) Active Problems Problem Noted Date Diagnosed Date [...] as of this encounter (statuses as of 03/15/2024) Resolved Problems Problem Noted Date Diagnosed Date [...] as of this encounter (statuses as of 03/15/2024) Immunizations Name Administration Dates Next Due COVID-19 mRNA, LNP-s, No Pre serve, 2-Dose Series (ParkAround) 07/30/2021,11/30/2020,11/09/2020 COVID-19, MRNA-LNP, 23-24, P F, 30 MCG/0.3 mL, 12 YRS AND ABOVE, IM ([employer]-Comirnat) 06/30/2023 Covid-19, Mrna, Lnp-s, Pf, B ivalent, 30 Mcg, IM, 12 yrs and above ([employer]) 06/20/2022 HEP A - Hepatitis A (Adult [...] encounter Miscellaneous Notes * Telephone Encounter - Rosa Fajardo PA-C - 03/15/2024 9:03 AM EDT Orders signed as requested. * Telephone Encounter - Nithin Oakes RN - 03/12/2024 11:12 AM EDT Pending Prescriptions: Disp Refills Ezetimibe 10 MG Oral Tablet (Zetia) 90 Tab*3 Sig: Take 1 Tablet by mouth in the morning. Last Visit: 03/08/2024 (in office), Visit date not found (telemedicine) Next Visit: 04/16/2024 Last medication order date: yes Have you choosen a preferred pharm?? New Patient Active Problem List Diagnosis Generalized osteoarthritis Type 2 diabetes mellitus with hemoglobin A1c goal of less than 7.0% ([facility]) Dyslipidemia, goal LDL below 70 HTN, goal below 140/90 Primary osteoarthritis of left knee Cervical spine pain Cervical spinal stenosis Spondylosis, cervical, with myelopathy Chronic neck pain Upper extremity weakness Pre-op testing Chronic coronary artery disease NSVT (nonsustained ventricular tachycardia) ([facility]) Presence of stent in LAD coronary artery Labs: Lab Results Component Value Date/Time CREATININE - [facility] 1.1 03/08/2024 12:42 PM CREATININE - [facility] 1.0 05/05/2020 07:47 AM CREATININE, RANDOM URINE - [facility] 137 10/08/2023 09:11 AM CREATININE, RANDOM URINE - [facility] 36 05/05/2020 08:00 AM Lab Results Component Value Date/Time POTASSIUM - [facility] 4.5 03/08/2024 12:42 PM POTASSIUM - [facility] 4.7 05/05/2020 07:47 AM Lab Results Component Value Date/Time TSH - [facility] 2.11 09/04/2011 08:00 AM Lab Results Component Value Date/Time LDL CHOLESTEROL (CALCULATED) - [facility] 93 05/10/2022 08:30 AM LDL CHOLESTEROL (CALCULATED) - [facility] 81 09/24/2021 12:46 PM LDL CHOLESTEROL (CALCULATED) - [facility] 68 05/05/2020 07:47 AM LDL CHOLESTEROL (CALCULATED) - [facility] 85 04/22/2018 10:43 AM LDL CHOLESTEROL (DIRECT MEASURE) - [facility] 72 03/08/2024 12:42 PM LDL CHOLESTEROL (DIRECT MEASURE) - [facility] 89 10/08/2023 09:11 AM LDL CHOLESTEROL (DIRECT MEASURE) - [facility] NOT APPLICABLE 05/05/2020 07:47 AM LDL CHOLESTEROL (DIRECT MEASURE) - [facility] 95 03/24/2019 09:17 AM LDL CHOLESTEROL (DIRECT MEASURE) - [facility] NOT APPLICABLE 01/23/2017 03:42 PM LDL CHOLESTEROL (DIRECT MEASURE) - [facility] 125 10/07/2013 08:16 AM Lab Results Component Value Date/Time ALT - [facility] 22 03/08/2024 12:42 PM ALT - [facility] 24 05/05/2020 07:47 AM Hemoglobin AIC Results: Lab Results Component Value Date/Time HEMOGLOBIN A1C - [facility] 7.5 (H) 02/16/2024 08:46 AM HEMOGLOBIN A1C - [facility] 8.3 (H) 01/16/2024 07:53 AM HEMOGLOBIN A1C - [facility] 7.8 (H) 10/08/2023 09:11 AM HEMOGLOBIN A1C - [facility] 6.3 (H) 05/05/2020 07:47 AM HEMOGLOBIN A1C - [facility] 6.7 (H) 03/24/2019 09:17 AM HEMOGLOBIN A1C - [facility] 6.9 (H) 10/05/2018 08:21 AM * Telephone Encounter - Karen Covington CMA - 03/11/2024 11:07 AM EDT ----- Message from Kary Perez sent at 03/10/2024 2:53 PM EDT ----- Reviewed in coverage of Rosa Fajardo PA-C Kidney function and electrolytes are stable. Liver within normal limits. CBC stable. LDL borderline controlled. Would like LDL below 70. Recommend adding zetia 10 mg daily in addition to max statin.. documented in this encounter Plan of Treatment Upcoming Encounters Date Type Department Care Team (Late st Contact Info) Description 04/16/2024 10:30 AM EDT Office Visit Cardiology, [facility] [address] [place] [address] Rosa Fajardo PA-C [address] [place] [address] 05/17/2024 8:00 AM EDT Office Visit Pharmacy, [facility] [address] [facility] [place] [address] [facility] [address] [place] [address] 09/06/2024 11:00 AM EST Office Visit [facility], [place] [address] [address] [facility], [place] [address] Nisa Goodrich PA-C [address] [place] [facility] [place] [address] 09/08/2024 7:40 AM EST Office Visit [facility], [place] [address] [facility], [place] [address] Alonso Daigle MD [address] [place] [address] 09/14/2024 8:45 AM EST Office Visit Orthopaedics Spine Surgery, [place] [address] [place] [address] Kleber Batres MD [address] [place] [address] Scheduled Procedures Name Priority Associated Diagnoses Date/Ti [...] and were consensually agreed upon. Care Teams Amplifier Mechanic Relationship Specialty Start Date End Date Nisa Goodrich PA-C [address] [facility] [place] [address] PCP - General Physician Journal Entry Audit Clerk 03/14/24 documented as of this encounter
--- OUTSIDE RECORDS SUMMARY | 2024-04-22 03:27 | External Medical Summary ---
Author Name Unknown Address Unknown Organization [facility] [facility] [address] [place] [address] Laboratory Report Ordering Provider Test Date Status CHAPO RICHEY 03/22/2024 14:43:07 Final Observation Date Value Abnormality Reference (Units ) Status WBC, Total 03/22/2024 14:43:07 7.15 4.00-10.8 0 (K/uL) Final RBC 03/22/2024 14:43:07 4.48 4.50-5.25 (M/uL) Final Hemoglobin 03/22/2024 14:43:07 13.1 Below low normal 14 .0-16.8 (g/dL) Final HCT 03/22/2024 14:43:07 38.4 Below low normal 40. 0-48.4 (%) Final MCV 03/22/2024 14:43:07 85.7 82.0-99.5 (fL) Final MCH 03/22/2024 14:43:07 29.2 27.0-34.0 (pg) Final MCHC 03/22/2024 14:43:07 34.1 32.0-36.0 (g/dL) Final RDW 03/22/2024 14:43:07 15.4 11.5-15.5 (%) Final Platelets 03/22/2024 14:43:07 243 140-400 (K /uL) Final MPV 03/22/2024 14:43:07 8.6 6.6-11.1 ( fL) Final Performing Location [facility] [place] [address] - [address] [place] [address]
--- OUTSIDE RECORDS SUMMARY | 2024-04-22 03:28 | External Medical Summary | Summary of Care ---
Author Name Unknown Organization [facility] Address [address] [place] [address] Phone [phone] Care Team Providers Care Meat Wrapper Name Role Phone Alonso Daigle MD Primary Care Provider +1- [phone] Reason for Visit * Reason Onset Date Comments Hospital Follow-Up 02/18/2024 Encounter Details Date Type Department Care Team (Late st Contact Info) Description 02/18/2024 Telephone General Internal Medicine [facility] [place] [address] [place] [address] Alonso Daigle MD [address] [place] [address] Hospital Follow-Up Allergies No known active allergiesdocumented as of this encounter (statuses as of 02/24/2024) Medications Medication Sig Dispensed Refills Start Date [...] MORNING 48 g 2 12/16/2023 12/15/2024 Active Ondansetron 4 MG Oral Tablet Disintegrating [...] for 2 days 30 Tablet 02/09/2024 Active Gabapentin 100 MG Oral Capsule (Neurontin) [...] as of this encounter (statuses as of 02/24/2024) Active Problems Problem Noted Date Diagnosed Date Chronic coronary artery disease 02/17/2024 Cervical spine [...] as of this encounter (statuses as of 02/24/2024) Resolved Problems Problem Noted Date Diagnosed Date [...] as of this encounter (statuses as of 02/24/2024) Immunizations Name Administration Dates Next Due COVID-19 mRNA, LNP-s, No Pre serve, 2-Dose Series (One[employer]) 07/30/2021,11/30/2020,11/09/2020 COVID-19, MRNA-LNP, 23-24, P F, 30 MCG/0.3 mL, 12 YRS AND ABOVE, IM ([employer]-Comirnat) 06/30/2023 Covid-19, Mrna, Lnp-s, Pf, B ivalent, [...] encounter Miscellaneous Notes * Telephone Encounter - Kulwant Rhodes OSA - 02/24/2024 2:23 PM EDT Patient has been scheduled, and the hold removed, thank you. Friday Arrive by 11:15 AM Appt at 11:30 AM (1 hr) * Telephone Encounter - Karen Stein RN - 02/24/2024 2:18 PM EDT Conversion complete, please schedule and remove hold. * Telephone Encounter - Kulwant Rhodes OSA - 02/23/2024 1:47 PM EDT Update, I meant March 08 at 1130 with Rosa. * Telephone Encounter - Kulwant Rhodes OSA - 02/23/2024 1:35 PM EDT Called patient, he accepted March 07, at 1130 am for the appt. Please let me know when the slot is open and I Will scheduled, and release the hold. Thank you. * Telephone Encounter - Karen Stein RN - 02/23/2024 1:31 PM EDT New patient for Cardiology. OK to offer close in dates as per below if no other new patient openings available. Once date/time confirmed, will convert. * Telephone Encounter - Kulwant Rhodes OSA - 02/19/2024 1:31 PM EDT Hue Jones I please use a CLOS REL with Rosa Fajardo on these days: 7, 8, 9 , 10 , 11 at 1130 am, thank you. * Telephone Encounter - Raimundo Cardenas RN - 02/18/2024 1:59 PM EDT Patient discharged from [facility] 02/12/24 to home. Cardiology consulted, patient had a cath with stents placed. Please assist with a cardiology hospital follow up appointment. Thank you documented in this encounter Plan of Treatment Upcoming Encounters Date Type Department Care Team (Late st Contact Info) Description 02/26/2024 8:40 AM EDT NeuroDiagnostic Study Neurophysiology [facility] [address] [facility] [address] Ralph Torrez, DO [address] [facility], [place] [address] 03/08/2024 11:30 AM EDT Office Visit Cardiology, [facility] [address] [facility] [place] [address] Rosa Fajardo PA-C [address] [facility] [place] [address] 03/12/2024 8:30 AM EDT Office Visit Orthopaedics Spine Surgery, [place] [address] [place] [address] Kleber Batres MD [address] [place] [address] 05/17/2024 8:00 AM EDT Office Visit Pharmacy, [facility] [address] [facility] [address] [facility] [address] 09/06/2024 11:00 AM EST [facility] [place] [address] [address] [facility] [address] Nisa Goodrich PA-C [address] [facility] [address] 09/08/2024 7:40 AM EST Office Visit [facility] [address] [facility] [address] Alonso Daigle MD [address] [facility] [address] Scheduled Procedures Name Priority Associated Diagnoses Date/Ti [...] 06/30/2023, 06/20/2022, 07/30/2021, Additional history exists HbA1c 08/17/2024 02/16/2024, 05/03/2024, 10/08/2023, Additional history exists Diabetic Foot Exam [...] and were consensually agreed upon. Care Teams Meat Wrapper Relationship Specialty Start Date End Date Alonso Daigle MD [address] [place] [facility] [place] [address] PCP - General 08/28/01 documented as of this encounter
--- OUTSIDE RECORDS SUMMARY | 2024-04-22 03:28 | External Medical Summary ---
Author Name Unknown Address Unknown Organization K01:[facility] - [address] [place] [address] Laboratory Report Ordering Provider Test Date Status PAWEL STEPHENS 03/08/2024 12:42:37 Final Observation Date Value Abnormality Reference (Units ) Status LDL, (direct) 03/08/2024 12:42:37 72 <=129 (mg/dL) Final LDL Cholesterol Reference Ra nges (mg/dL):
<70 Target level for high risk ASCVD patient
<100 Optimal for general population
100-129 Near optimal for general population
130-159 Borderline high
160-189 High
>=190 Very high Performing Location [facility] [address] [facility] [address]
--- OUTSIDE RECORDS SUMMARY | 2024-04-22 03:28 | External Medical Summary | Summary of Care ---
Author Name Unknown Organization [facility] Address [address] [facility] [place] [address] Phone [phone] Care Team Providers Care Hat And Cap Sewer Name Role Phone Alonso Daigel MD Primary Care Provider +1- [phone] Encounter Details Date Type Department Care Team (Late st Contact Info) Description 01/22/2024 Telephone Orthopaedics Spine Surgery, [place] [address] [place] [address] Kleber Batres MD [address] [place] [id number] Allergies No known active allergiesdocumented as of this encounter (statuses as of 02/23/2024) Medications Medication Sig Dispensed Refills Start Date [...] Constipation. Active Lisinopril 20 MG Oral Tablet (Prinivil)Indic ations:HTN, goal below 140/90 TAKE ONE TABLET BY MOUTH EVERY DAY 90 Tablet 2 12/16/2023 12/16/19 25 Active Atorvastatin Calcium 80 MG Oral Tablet (Lipitor) TAKE ONE TABLET BY MOUTH EVERY DAY 90 Tablet 2 12/16/2023 12/16/19 25 Active Fluticasone Propionate 50 MCG/ACT Nasal Suspension (Flonase) ADMINISTER 2 SPRAYS INTO EACH NOSTRIL DAILY IN THE MORNING 48 g 2 12/16/2023 12/16/19 25 Active Benzonatate 100 MG Oral Capsule (Tessalon Perles)Indicati ons:COVID-19 Take 1 Capsule by mouth 3 times a day as needed for Cough. Do not cut, crush, or chew. 50 Capsule 1 08/28/2023 02/09/20 24 Discontinued Esomeprazole Magnesium 20 MG Oral Capsule Delayed Release (NexIUM) Take 1 Capsule by mouth daily before breakfast. 02/17/20 24 Discontinued(Pat ient preference/disco ntinuation) Naproxen 500 MG Oral Tablet (Naprosyn)Indic ations:Chronic pain of both shoulders,Cervi damon spine pain Take 1 Tablet by mouth in the morning and 1 Tablet before bedtime. With food.. 60 Tablet 5 11/25/2023 02/09/20 24 Discontinued(Ref ill) Semaglutide 7 MG Oral Tablet (Rybelsus)Indic ations:Type 2 diabetes mellitus with hemoglobin A1c goal of less than 7.0% (HCC) Take 7 mg by mouth daily first thing in the morning. Take 30 minutes before food and other medications. 90 Tablet 1 01/20/2024 02/16/20 24 Discontinued(Pat ient preference/disco ntinuation) Rybelsus 3 MG Oral Tablet (Semaglutide)In dications:Type 2 diabetes mellitus with hemoglobin A1c goal of less than 7.0% ([facility]) Take 3 mg by mouth daily first thing in the morning. Take 30 minutes before food and other medications. Take 3mg for 30 days then increase to 7mg tablets. 30 Tablet 01/20/2024 02/16/20 24 Discontinued(Med ication/Dose Changed) documented as of this encounter (statuses as of 02/23/2024) Active Problems Problem Noted Date Diagnosed Date [...] as of this encounter (statuses as of 02/23/2024) Resolved Problems Problem Noted Date Diagnosed Date [...] as of this encounter (statuses as of 02/23/2024) Immunizations Name Administration Dates Next Due COVID-19 mRNA, LNP-s, No Pre serve, 2-Dose Series ([employer]) 07/30/2021,11/30/2020,11/09/2020 COVID-19, MRNA-LNP, 23-24, P F, 30 [...] encounter Miscellaneous Notes * Telephone Encounter - Irene Amaya, BRANDEN - 02/18/2024 3:34 PM EDT I called patient to schedule surgery with Dr. Batres at [facility], however patient had a stent placed lastweek and is waiting to follow up with cardiology. Patient would like to have his surgery done with you as soon as possible. I advised that I would reach out to you to advise on what time frame you are comfortable with and I also advised to patient that we will likely need cardiology input as well. Patient verbalized understanding and will mention this to cardiology as well. Please advise on timeframe from your perspective. * Telephone Encounter - Irene Amaya OSA - 02/05/2024 9:23 AM EDT Attempted to call patient again to schedule surgery. No answer. Left message for call back. * Telephone Encounter - Irene Amaya OSA - 01/22/2024 2:44 PM EDT I called this patient to schedule surgery with Dr. Batres. No answer. Left message for call back. documented in this encounter Plan of Treatment Upcoming Encounters Date Type Department Care Team (Late st Contact Info) Description 02/26/2024 8:40 AM EDT NeuroDiagnostic Study Neurophysiology [address] [place] [address] Ralph Torrez, [address] [facility] [place] [address] 03/12/2024 8:30 AM EDT Office Visit Orthopaedics Spine Surgery, [place] [address] [place] [address] Kleber Batres MD [address] [place] [address] 05/17/2024 8:00 AM EDT Office Visit Pharmacy, [facility] 132 [facility] [place] [address] [facility] [address] [place] [address] 09/06/2024 11:00 AM EST Office Visit [facility], [place] [address] [facility] [address] Nisa Goodrich PA-C [address] [facility], [place] [id number] 09/08/2024 7:40 AM EST Office Visit [facility], [place] [address] [facility] [address] Alonso Daigle MD [address] [facility] [place] [id number] Scheduled Procedures Name Priority Associated Diagnoses Date/Ti [...] 07/30/2021, Additional history exists HbA1c 08/17/2024 02/16/2024, 12/30, [...] and were consensually agreed upon. Care Teams Hat And Cap Sewer Relationship Specialty Start Date End Date Alonso Daigle MD [address] [place] [address] PCP - General 08/28/01 documented as of this encounter
--- OUTSIDE RECORDS SUMMARY | 2024-04-22 03:28 | External Medical Summary | Summary of Care ---
Author Name Unknown Organization [facility] Address [address] [facility] [place] [address] Phone [phone] Care Team Providers Care Cell Tower Climber Name Role Phone Alonso Daigle MD Primary Care Provider +1- [phone] Encounter Details Date Type Department Care Team (Late st Contact Info) Description 02/23/2024 Telephone [place]ics [place] [address] [place] [address] Kleber Batres MD [address] [place] [id number] Allergies No known active allergiesdocumented as of [...] mRNA, LNP-s, No Pre serve, 2-Dose Series ([email or web address]) 07/30/2021,11/30/2020,11/09/2020 COVID-19, MRNA-LNP, 23-24, P F, 30 MCG/0.3 mL, 12 YRS AND ABOVE, IM ([employer] nash) 06/30/2023 Covid-19, Mrna, Lnp-s, Pf, B ivalent, [...] Miscellaneous Notes * Telephone Encounter - Irene Amaya OSA - 02/23/2024 11:33 AM EDT Patient called in to make us aware that he is unable to get scheduled with cardiology until Apr. I advised to patient that he would likely have to wait anyway to have surgery but to keep us updated with what cardiology says as far as having surgery with Dr. Batres after stent placement. Patient was placed on waitlist to be seen with cardiology sooner and has an appt with us on 03/12 Spine team...FYI. documented in this encounter Plan of Treatment Upcoming Encounters Date Type Department Care Team (Late st Contact Info) Description 02/26/2024 8:40 AM EDT NeuroDiagnostic Study Neurophysiology [facility] [address] [facility] [address] Ralph Torrez, DO [address] [place] [address] 03/12/2024 8:30 AM EDT Office Visit Orthopaedics Spine Surgery, [place], Anaya [address] [place] [address] Kleber Batres MD [address] [place] [address] 05/17/2024 8:00 AM EDT Office Visit Pharmacy, [facility] [address] [facility] 132 [place] [address] 09/06/2024 11:00 AM EST Office Visit [place] [address] [facility] [place] [address] Nisa Goodrich PA-C [address] [place] [address] 09/08/2024 7:40 AM EST Office Visit [facility] [address] [place] [address] Alonso Daigle MD [address] [place] [address] Scheduled Procedures Name Priority Associated Diagnoses Date/Ti [...] and were consensually agreed upon. Care Teams Cell Tower Climber Relationship Specialty Start Date End Date Alonso Daigle MD [address] [place] [facility] [place] [address] PCP - General 08/28/01 documented as of this encounter
--- OUTSIDE RECORDS SUMMARY | 2024-04-22 03:28 | External Medical Summary | Summary of Care ---
Author Name Unknown Organization [facility] Address [address] [facility] [address] Phone [phone] Care Team Providers Care Quill Picking Machine Operator Name Role Phone Alonso Daigle MD Primary Care Provider +1- [phone] Reason for Visit * Reason Comments EMG Encounter Details Date Type Department Care Team (Late st Contact Info) Description 02/26/2024 8:40 AM EDT NeuroDiagnostic Study Neurophysiology [place], [place] [address] [facility] [place] [address] Ralph Torrez, DO [address] [facility] [place] [address] Arrived Allergies No known active allergiesdocumented as of this encounter (statuses as of 02/26/2024) Medications Medication Sig Dispensed Refills Start Date [...] as of this encounter (statuses as of 02/26/2024) Active Problems Problem Noted Date Diagnosed Date [...] as of this encounter (statuses as of 02/26/2024) Resolved Problems Problem Noted Date Diagnosed Date [...] as of this encounter (statuses as of 02/26/2024) Immunizations Name Administration Dates Next Due COVID-19 mRNA, LNP-s, No Pre serve, 2-Dose Series (Namshi) 07/30/2021,11/30/2020,11/09/2020 COVID-19, MRNA-LNP, 23-24, P F, 30 MCG/0.3 mL, 12 YRS AND ABOVE, IM (HedgeChatter-Comirnat) 06/30/2023 Covid-19, Mrna, Lnp-s, Pf, B ivalent, [...] as of this encounter Progress Notes * Ralph Torrez DO - 02/26/2024 8:46 AM EDT [facility] – [place] Neurophysiology Laboratory Electromyography Report Name: Almas Pack Date of : 1955 (68 year old) Sex: male Tech: Mohit Paredes Referring Physician: Kleber Batres MD Examining Physician: Ralph Torrez DO Examination Date: 02/26/2024 Ht Readings from Last 1 Encounters: 02/09/24 1.727 m (5' 8") Wt Readings from Last 1 Encounters: 02/17/24 115.3 kg (254 lb 3.2 oz) Impression: Abnormal study. This electrodiagnostic study shows evidence of the followin. 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 2. Superimposed mild left median neuropathy at the wrist (carpal tunnel syndrome). 3. Chronic right C7 radiculopathy. History and Physical examination: A 68-year-old male with type 2 diabetes and cervical spine stenosis. Sensation is intact to light touch upper extremities. EMG/evaluation of radiculopathy. Nerve Conduction Studies Examination Findings: Nerve conduction studies were performed in the bilateral upper extremities. The left median sensorynerve study showed a prolonged peak latencies, reduced amplitude, and slow conduction velocity. Theright median ulnar comparative study showed an absent right ulnar sensory nerve response with a prolonged right median sensory nerve response. The left ulnar sensory nerve response was absent. Left radial sensory nerve study showed a normal peak latency, reduced amplitude, and normal conduction velocity. The bilateral median motor nerve study showed normal distal latencies, normal amplitudes, andnormal conduction velocities. The left ulnar motor nerve study showed a normal distal latency, normal amplitude, and normal conduction velocity. Please see the attached document for raw data or the scanned document in [employer]. Reference values are from the [facility] normative data guidelines that are attached at the end ofthis document. Electromyography Examination Findings: Needle examination was performed with a disposable concentric needle electrode in selected muscles of the bilateral upper extremities, as recorded in the tables. No abnormal spontaenous activity was seen. The right triceps brachii muscle demonstrated mildly increased size and mildly reduced recruitment. The motor unit action potentials in the other muscles tested demonstrated normal size, duration, and recruitment. Please see the attached document for raw data or the scanned document in EPIC. The study was done with a concentric needle examination. Ralph Torrez DO documented in this encounter Plan of Treatment Upcoming Encounters Date Type Department Care Team (Late st Contact Info) Description 03/08/2024 11:30 AM EDT Office Visit Cardiology, [facility] [address] [place] [address] Rosa Fajardo PA-C [address] [place] [address] 03/12/2024 8:30 AM EDT Office Visit Orthopaedics Spine Surgery, [place] [address] [place] [address] [place] [address] Kleber Batres MD [address] [place] [address] 05/17/2024 8:00 AM EDT Office Visit Pharmacy, [facility] [place] [address] [facility] [address] [place] [address] 09/06/2024 11:00 AM EST Office Visit [place] [address] [place] [place] [address] Nisa Goodrich PA-C [address] [place] [address] 09/08/2024 7:40 AM EST Office Visit [facility] [address] [place] [place] [address] Alonso Daigle MD [address] [place] [address] Scheduled Procedures Name Priority Associated [...] as of this encounter Visit Diagnoses Diagnosis Numbness in both hands [R20.0]- Primary Disturbance of skin sensation documented in this encounter Advance Directives * Full Code (Latest Code Status on File) Date Activated Date Inactivated Comments 07/05/2019 10:32 AM 07/05/2019 4:23 PM This order reflects the patients wishes and were consensually agreed upon. Care Teams Quill Picking Machine Operator Relationship Specialty Start Date End Date Alonso Daigle MD [address] [place] [address] PCP - General 08/28/01 documented as of this encounter
--- OUTSIDE RECORDS SUMMARY | 2024-04-22 03:28 | External Medical Summary | Summary of Care ---
Author Name Unknown Organization [facility] Address [address] [facility] [place] [address] Phone [phone] Care Team Providers Care Research And Development Tester Name Role Phone Alonso Daigle MD Primary Care Provider +1- [phone] Encounter Details Date Type Department Care Team (Late st Contact Info) Description 01/22/2024 Telephone Orthopaedics Spine [place], [place] [address] [place] [address] Kleber Batres MD [address] [place] [id number] Allergies No known active allergiesdocumented as of this encounter (statuses as of 02/20/2024) Medications Medication Sig Dispensed Refills Start Date [...] hemoglobin A1c goal of less than 7.0% ([facility]) Take 3 mg by mouth daily first thing in the morning. Take 30 minutes before food and other medications. Take 3mg for 30 days then increase to 7mg tablets. 30 Tablet 01/20/2024 02/16/20 24 Discontinued(Med ication/Dose Changed) documented as of this encounter (statuses as of 02/20/2024) Active Problems Problem Noted Date Diagnosed Date [...] as of this encounter (statuses as of 02/20/2024) Resolved Problems Problem Noted Date Diagnosed Date [...] as of this encounter (statuses as of 02/20/2024) Immunizations Name Administration Dates Next Due COVID-19 mRNA, LNP-s, No Pre serve, 2-Dose Series ([employer]ara [employer]ics) 07/30/2021,11/30/2020,11/09/2020 COVID-19, MRNA-LNP, 23-24, P F, 30 MCG/0.3 mL, 12 YRS AND ABOVE, IM ([email or web address]-Comirnaty) 06/30/2023 Covid-19, Mrna, Lnp-s, Pf, B ivalent, [...] to schedule surgery with Dr. Batres at [facility], however patient had a stent placed lastweek [...] 02/26/2024 8:40 AM EDT NeuroDiagnostic Study Neurophysiology [address] [place] [address] Ralph Torrez, 200 [facility] [place] [address] 03/12/2024 8:30 AM EDT Office Visit Orthopaedics Spine Surgery, [place] [address] [place] [address] Kleber Batres MD [address] [place] [address] [place] [address] 05/17/2024 8:00 AM EDT Office Visit Pharmacy, [facility] [address] [facility] [place] [address] [facility] [place] [address] 09/06/2024 11:00 AM EST Office Visit [facility], [place] [address] [facility] [address] Nisa Goodrich PA-C [address] [facility], [place] [id number] 09/08/2024 7:40 AM EST Office Visit [facility], [place] [address] [facility] [address] Alonso Daigle MD [address] [facility] [place] [id number] Scheduled Procedures Name Priority Associated Diagnoses Date/Ti [...] and were consensually agreed upon. Care Teams Research And Development Tester Relationship Specialty Start Date End Date Alonso Daigle MD [address] [place] [facility] [place] [address] PCP - General 08/28/01 documented as of this encounter
--- OUTSIDE RECORDS SUMMARY | 2024-04-22 03:28 | External Medical Summary ---
Author Name Unknown Address Unknown Organization K01:[facility] [address] [facility] [address] [facility] [address] Laboratory Report Ordering Provider Test Date Status PAWEL STEPHENS 03/08/2024 12:42:37 Final Observation Date Value Abnormality Reference (Units ) Status Magnesium 03/08/2024 12:42:37 1.9 1.5-2.6 (m g/dL) Final Performing Location [facility] - [address] [facility] [address]
--- OUTSIDE RECORDS SUMMARY | 2024-04-22 03:28 | External Medical Summary ---
Author Name Unknown Address Unknown Organization K0G:LABORATORY [facility] - [address] [place] [address] Laboratory Report Ordering Provider Test Date Status PAWEL STEPHENS 03/08/2024 12:42:37 Final Observation Date Value Abnormality Reference (Units ) Status WBC, Total 03/08/2024 12:42:37 7.14 4.00-10.8 0 (K/uL) Final RBC 03/08/2024 12:42:37 4.82 4.50-5.25 (M/uL) Final Hemoglobin 03/08/2024 12:42:37 13.7 Below low normal 14 .0-16.8 (g/dL) Final HCT 03/08/2024 12:42:37 41.1 40.0-48.4 (%) Final MCV 03/08/2024 12:42:37 85.3 82.0-99.5 (fL) Final MCH 03/08/2024 12:42:37 28.4 27.0-34.0 (pg) Final MCHC 03/08/2024 12:42:37 33.3 32.0-36.0 (g/dL) Final RDW 03/08/2024 12:42:37 15.7 11.5-15.5 (%) Final Platelets 03/08/2024 12:42:37 272 140-400 (K /uL) Final MPV 03/08/2024 12:42:37 9.0 6.6-11.1 ( fL) Final Performing Location LABORATORY [facility] 0 - [address] [place] [address]
--- OUTSIDE RECORDS SUMMARY | 2024-04-22 03:28 | External Medical Summary ---
Author Name Unknown Address Unknown Organization K01:[facility] [place] [address] [place] [address] Laboratory Report Ordering Provider Test Date Status PAWEL STEPHENS 03/08/2024 12:42:37 Final Exclude Heart Failure: <300 pg/mL
Diagnose Heart Failure:
Age <50 yr: >450 pg/mL
50-75 yr: >900 pg/mL
>75 yr: >1800 pg/mL
GFR is 30-59 mL/min: >1200 pg/mL or Age- adjusted values
GFR <30 mL/min: do not use, not reliable

Prognostic threshold: 1000 pg/mL Observation Date Value Abnormality Reference (Units ) Status BNP, Pro-hormone 03/08/2024 12:42:37 84 <30 0 (pg/mL) Final Performing Location [facility] [place] [address] [place] [address]
--- OUTSIDE RECORDS SUMMARY | 2024-04-22 03:28 | External Medical Summary | Summary of Care ---
Author Name Unknown Organization [facility] Address [address] [place] [address] Phone [phone] Care Team Providers Care Clinical Social Worker Name Role Phone Alonso Daigle MD Primary Care Provider +1- [phone] Reason for Visit * Reason Comments Hospital Follow-Up Pt here for hospital discharge follow up. Encounter Details Date Type Department Care Team (Late st Contact Info) Description 02/17/2024 2:40 PM EDT Office Visit Located Within [facility] [address] [place] [address] Ronnie Bill MD [address] [place] [address] Chronic coronary artery disease*; Type 2 diabetes mellitus with hemoglobin A1c goal of less than 7.0% ([facility]) Allergies No known active allergiesdocumented as of this encounter (statuses as of 02/17/2024) Medications Medication Sig Dispensed Refills Start Date [...] Active Montelukast Sodium 10 MG Oral Tablet (Singulair)Beronicati ons:COVID-19 Take 1 Tablet by mouth in [...] Constipation. Active Lisinopril 20 MG Oral Tablet (Prinivil)Tyroneo ns:HTN, goal below 140/90 TAKE ONE TABLET [...] 02/09/2024 Active predniSONE 10 MG Oral Tablet (Deltasone)Beronicati ons:Viral illness Take 5 tabs for 2 [...] Hour (toPROL XL) 0.5 Tablets. 02/12/2024 Active Esomeprazole Magnesium 20 MG Oral Capsule Delayed Release (NexIUM) Take 1 Capsule by mouth daily before breakfast. 4 Discontinue d(Patient preference/ discontinua tion) documented as of this encounter (statuses as of 02/17/2024) Active Problems Problem Noted Date Diagnosed Date [...] as of this encounter (statuses as of 02/17/2024) Resolved Problems Problem Noted Date Diagnosed Date [...] as of this encounter (statuses as of 02/17/2024) Immunizations Name Administration Dates Next Due COVID-19 mRNA, LNP-s, No Pre serve, 2-Dose Series (BookTour) 07/30/2021,11/30/2020,11/09/2020 COVID-19, MRNA-LNP, 23-24, P F, 30 [...] Sign Reading Time Taken Comments Blood Pressure 132/58 02/17/2024 2:47 PM EDT Pulse 77 02/17/2024 2:47 PM EDT Temperature 36.2 C (97.2 F) 02/17/2024 2:47 PM ED T Respiratory Rate 16 02/17/2024 2:47 PM EDT Oxygen Saturation 94% 02/17/2024 2:47 PM EDT Inhaled Oxygen Concentration - - Weight 115.3 kg (254 lb 3.2 oz) 02/17/2024 2:47 PM EDT Height - - Body Mass Index 38.65 02/09/2024 9:59 AM EDT documented in this encounter Progress Notes * Ronnie Bill MD - 02/17/2024 2:55 PM EDT Subjective: Almas Pack is a 68 year old male. Chief Complaint Patient presents with Hospital Follow-Up Pt here for hospital discharge follow up. HPI: 68-year-old seen today in follow-up after recent [facility] hospital admission from February 09 of February 11. He had been bothered for as much as months of substernal intermittent chest discomfort. It was unclear as to the underlying etiology but there was high suspicion that it was GI related. Because of this same chest discomfort he presented to [facility]. His cardiac enzymes were unremarkable but dawnaso did not respond to GI medications. Ultimately he had a dobutamine stress test which was positive and thus he was taken immediately to cardiac labor relations worker. I do not have the full catheterization report but he tells me he had 1 stent. He did have another obstruction and was told that they could not open that Um obstructive coronary vessel. He did well with the procedure and did well afterwards. He is noted dramatic improvement in his overall chest discomfort. His discharge medications includedthe addition of Brilinta 90 mg twice a day and metoprolol succinate 25 mg, half a tablet or 12.5 mgdaily. Otherwise he stayed in the same medications. He also was prescribed Rebelsis but this was cost prohibitive in he did not peanut picker the prescription. It should be noted that his last hemoglobin A1c was 7.5 which is a good improvement for him. Does remain on the combination of metformin 1000 mg twice a day. He was to continue his atorvastatin at 80 mg daily. He was to continue gabapentin 100 mg at bedtime. Patient Active Problem List Diagnosis Generalized osteoarthritis Type 2 diabetes mellitus with hemoglobin A1c goal of less than 7.0% ([facility]) Dyslipidemia, goal LDL below 100 HTN, goal below 140/90 Primary osteoarthritis of left knee Cervical spine pain Cervical spinal stenosis Spondylosis, cervical, with myelopathy Chronic neck pain Upper extremity weakness Pre-op testing Current Outpatient Medications Medication Sig Dispense Refill [...] Tab by mouth daily. 90 Tab 3 Montelukast Sodium 10 MG Oral Tablet (Singulair) Take 1 Tablet by mouth in the morning. 90 Tablet 3 metFORMIN HCl 1000 MG Oral Tablet (Glucophage) Take 1 Tablet by mouth 2 times a day with morning and evening meals. 180 Tablet 3 PreserVision AREDS 2 Oral Tablet Chewable Take by mouth. Citrucel 500 MG Oral Tablet (Methylcellulose (Laxative)) Take 1 Tablet by mouth as needed for Constipation. Lisinopril 20 MG Oral Tablet (Prinivil) TAKE ONE TABLET BY MOUTH EVERY DAY 90 Tablet 2 Atorvastatin Calcium 80 MG Oral Tablet (Lipitor) TAKE ONE TABLET BY MOUTH EVERY DAY 90 Tablet 2 Fluticasone Propionate 50 MCG/ACT Nasal Suspension (Flonase) ADMINISTER 2 SPRAYS INTO EACH NOSTRIL DAILY IN THE MORNING 48 g 2 Ondansetron 4 MG Oral Tablet Disintegrating (Zofran) Place 1 Tablet on tongue every 8 hours as needed for Nausea. dissolve on tongue. 20 Tablet 0 predniSONE 10 MG Oral Tablet (Deltasone) Take 5 tabs for 2 days, 4 tabs for 2 days, 3 tabs for 2 days, 2 tabs for 2 days 1 tab for 2 days 30 Tablet 0 Gabapentin 100 MG Oral Capsule (Neurontin) TAKE 1 CAPSULE BY MOUTH EVERYDAY AT BEDTIME Brilinta 90 MG Oral Tablet Take 1 Tablet by mouth in the morning and 1 Tablet before bedtime. Esomeprazole Magnesium 20 MG Oral Capsule Delayed Release (NexIUM) Take 1 Capsule by mouth daily before breakfast. Metoprolol Succinate ER 25 MG Oral Tablet Extended Release 24 Hour (toPROL XL) 0.5 Tablets. Turmeric Curcumin 500 MG Oral Capsule Take by mouth 2 times a day. No current facility-administered medications for this visit. Review of patient's allergies indicates: No Known Allergies Objective: BP 132/58 | Pulse 77 | Temp 36.2 C (97.2 F) (Infrared ) | Resp 16 | Wt 115.3 kg (254 lb 3.2 oz)| SpO2 94% | BMI 38.65 kg/m | BSA 2.35 m Physical Exam: CONST: alert, pleasant, no acute distress HEAD: normocephalic, atraumatic Eyes - PERRLA, EOM'I OROPHARYNX: clear, no swelling or erythema, moist CV: regular rate and rhythm, no murmur CHEST: clear to auscultation bilaterally, no rales or wheezing ABD: soft, non tender, non distended, no masses or hepatosplenomegaly EXT: no edema, no joint swelling or deformities, NEURO: AAOx3, no gross focal deficits, cerebellar signs normal, affect appropriate SKIN: no rash or significant lesions ASSESSMENT/PLAN: Coronary artery disease status post single-vessel drug-eluting stent. Stressed importance of being conscientious and taking the Brilinta 90 mg twice a day every day for least a year. Also continue metoprolol succinate 12.5 mg daily. Diabetes mellitus- with his latest hemoglobin A1c of 7.5, I think he is okay just continuing the metformin. He would be a good candidate for an SGLT2 med given his underlying coronary disease. Ronnie Bill MD documented in this encounter Nursing Notes * Betty Morales LPN - 02/17/2024 2:36 PM EDT Chief Complaint Patient presents with Hospital Follow-Up Pt here for hospital discharge follow up. documented in this encounter Plan of Treatment Upcoming Encounters Date Type Department Care Team (Late st Contact Info) Description 02/26/2024 8:40 AM EDT NeuroDiagnostic Study Neurophysiology [facility] [address] [facility] [place] [address] Ralph Torrez, DO [address] [place] [address] 03/12/2024 8:30 AM EDT Office Visit Orthopaedics Spine Surgery, [place] [address] [place] [address] Kleber Batres MD [address] [place] [address] 05/17/2024 8:00 AM EDT Office Visit Pharmacy, [facility] [address] [facility] [place] [address] [facility] [address] [place] [address] 09/06/2024 11:00 AM EST Office [address] [place] [address] Nisa Goodrich PA-C [address] [facility] [place] [id number] 09/08/2024 7:40 AM EST Office Visit [facility] [place] [address] [place] [facility] [place] [address] Alonso Daigle MD [address] [facility] [place] [id number] Scheduled Procedures Name Priority Associated Diagnoses Date/Ti [...] Coronary atherosclerosis of unspecified type of vessel, [place] or graft Type 2 diabetes mellitus with hemoglobin A1c goal of less than 7.0% (H[facility]) documented in this encounter Advance Directives * Full Code (Latest Code Status on File) Date Activated Date Inactivated Comments 07/05/2019 10:32 AM 07/05/2019 4:23 PM This order reflects the patients wishes and were consensually agreed upon. Care Teams Clinical Social Worker Relationship Specialty Start Date End Date Alonso Daigle MD [address] [place] [address] PCP - General 08/28/01 documented as of this encounter"
--- OUTSIDE RECORDS SUMMARY | 2024-04-22 03:28 | External Medical Summary | Summary of Care ---
Author Name Unknown Organization [facility] Address [address] [facility] [place] [address] Phone [phone] Care Team Providers Care Terrapin Fisher Name Role Phone Alonso Daigle MD Primary Care Provider [phone] Reason for Referral * Evaluate & Treat - Unlimited Visits (Within 10 days (routine)) - Authorized Specialty Diagnoses / Procedures Referred By Contac t Referred To Contact CARDIAC REHAB / Cardiology Diagnoses Chronic coronary artery disease HTN, goal below 140/90 Dyslipidemia, goal LDL below 70 Presence of stent in LAD coronary artery Coronary artery disease involving [place] coronary artery of [place] heart with angina pectoris (HCC) NSVT (nonsustained ventricular tachycardia) (HCC) Rosa Fajardo PA-C [address] [place] [address] Referral ID Status Reason Start Date Expiration Date Visits Requested Visits Authorized [id number] Authorized Specialty Services Required 03/08/2024 999 999 Question Answer Referral Priority Within 10 days (routine) Where should this appointment be scheduled? [facility] Cardiac Rehab Only Cardiac Rehab Location: [facility] (Specify in Comments) - [facility] Identify Cardiac Risk Low to Moderate Risk Comments AMY to the LAD 02/11/24 Reason for Visit * Reason Comments NEW PATIENT Hospital discharge f ollow up. Encounter Details Date Type Department Care Team (Late st Contact Info) Description 03/08/2024 11:30 AM EDT Office Visit Cardiology, [facility] [address] [place] [address] Rosa Fajardo PA-C [address] [place] [address] Presence of stent in LAD coronary artery*; Chronic coronary artery disease; HTN, goal below 140/90; Dyslipidemia, goal LDL below 70; Coronary artery disease involving [place] coronary artery of [place] heart with angina pectoris (HCC); NSVT (nonsustained ventricular tachycardia) (HCC) Allergies No known active allergiesdocumented as of [...] Hour (toPROL XL) 0.5 Tablets. 02/12/2024 Active Turmeric Curcumin 500 MG Oral Capsule Take by mouth 2 times a day. 4 Discontinu ed(Patient preference /discontin uation) documented as of this encounter (statuses as [...] mRNA, LNP-s, No Pre serve, 2-Dose Series (Digabit) 07/30/2021,11/30/2020,11/09/2020 COVID-19, MRNA-LNP, 23-24, P F, 30 [...] Sign Reading Time Taken Comments Blood Pressure 126/58 03/08/2024 11:31 AM EDT Pulse 62 03/08/2024 11:31 AM EDT Temperature - - Respiratory Rate 16 03/08/2024 11:31 AM EDT Oxygen Saturation - - Inhaled Oxygen Concentration - - Weight 113.9 kg (251 lb) 03/08/2024 11:31 AM EDT Height - - Body Mass Index 38.16 02/09/2024 9:59 AM EDT documented in this encounter Patient Instructions * Patient Instructions* Rosa Fajardo PA-C - 03/08/2024 12:17 PM EDT Change metoprolol succinate 25 mg to 1/2 tablet in the evening. If you are already taking this in the evening, let me know. Blood work today Start Cardiac rehab documented in this encounter Progress Notes * Rosa Fajardo PA-C - 03/08/2024 11:30 AM EDT Images from the original note were not included. 03/08/2024 Cardiology hospital F/U: History of Present Illness: Almas Pack is a 68 year old male here today for close cardiology hospital f/u. History includes: CAD S/P AMY to the LAD on 02/11/24. CLINICAL RESEARCH NURSE of the RCA also noted with collaterals. Med management recommended. Hypertension Dyslipidemia DM Cervical spondylosis - future spinal surgery? Patient admitted to [facility] in February 19, 2024 with complaints of epigastric and chest pain radiating down both arms. EKG demonstrated normal sinus rhythm without ischemic changes. High sensitivity troponin was negative x3. Patient subsequently underwent dobutamine stress echo which was positive for inferior wall ischemia. He also had sustained VT with dobutamine infusion. Patient was subsequently sent for diagnostic cardiac catheterization revealing 100% CLINICAL RESEARCH NURSE of the RCA and 80% mid LAD lesion, treated with 1 AMY. He was started on low dose metoprolol succinate 12.5 mg daily with Brilinta. At least 6 months of uninterrupted dual anti-platelet therapy recommended. Echo with preserved LVEF. Patient presents today with his feeling ok. Notes dyspnea with exertional activities and more fatigue. No recurrent chest pain. No need for "Tums". This has improved since stent placement. Feelshe has "no energy'. Intermittent dizziness also reported. He reports compliance with meds. BP has been controlled. Mild edema noted at times. Feels his chest "is heavy" at times, but this occurs at rest. He has not returned to work. 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 Review of Systems: See HPI for pertinent positives. All others negative, other than those noted in HPI. Past Medical History: Patient Active Problem List Diagnosis Generalized osteoarthritis Type 2 diabetes mellitus with hemoglobin A1c goal of less than 7.0% (HCC) Dyslipidemia, goal LDL below 100 HTN, goal below 140/90 Primary osteoarthritis of left knee Cervical spine pain Cervical spinal stenosis Spondylosis, cervical, with myelopathy Chronic neck pain Upper extremity weakness Pre-op testing Chronic coronary artery disease Past Surgical History: Procedure Laterality Date COLONOSCOPY, DIAGNOSTIC (RECTUM) 05/07/2018 normal, repeat 10 yrs/COLONOSCOPY FLEXIBLE PROXIMAL DIAGNOSTIC performed by Dominic Jimenez MD at ENDOSCOPY [facility] COLORECTAL CANCER SCREEN; NOT AT RISK 01/13/2007 repeat in [address] CHEST W CONTRAST mediastinal LAD and 0.7 cm nodule RLL - stable 07/03,09/03,03/03 KNEE ARTHROSCOPY/MENISCECTOMY Left 07/05/2019 ARTHROSCOPY KNEE MEDIAL OR LATERAL MENISCECTOMY performed by Aspen Villalpando, DO at OR [facility] ID [id number] PROST AORTIC VALVE OPEN XCP HOMOGRF/STENT 02/11/2024 REPAIR INGUINAL HERNIA, UNDER 6 MO 3 months old STRESS ECHO (EXERCISE) 06/2005 nl UMBIL HERNIA REPAIR (REDUCIBLE) AGE 5+YR N/A 08/24/2018 08/24/2018 umbilical hernia repair -- [facility] DR. 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 (Adult - for ages 18 years and over): Not on file Housing Stability: Not on file Allergies: Patient has no known allergies. Medications: Current Outpatient Medications Medication Sig Dispense Refill [...] 2 Oral Tablet Chewable Take by mouth. Lisinopril 20 MG Oral Tablet (Prinivil) TAKE ONE TABLET BY MOUTH EVERY DAY 90 Tablet 2 Atorvastatin Calcium 80 MG Oral Tablet (Lipitor) TAKE ONE TABLET BY MOUTH EVERY DAY 90 Tablet 2 Fluticasone Propionate 50 MCG/ACT Nasal Suspension (Flonase) ADMINISTER 2 SPRAYS INTO EACH NOSTRIL DAILY IN THE MORNING 48 g 2 Gabapentin 100 MG Oral Capsule (Neurontin) TAKE [...] Release 24 Hour (toPROL XL) 0.5 Tablets. Citrucel 500 MG Oral Tablet (Methylcellulose (Laxative)) Take 1 Tablet by mouth as needed for Constipation. (Patient not taking: Reported on 03/08/2024) Ondansetron 4 MG Oral Tablet Disintegrating (Zofran) Place 1 Tablet on tongue every 8 hours as needed for Nausea. dissolve on tongue. (Patient not taking: Reported on 03/08/2024) 20 Tablet 0 predniSONE 10 MG Oral Tablet (Deltasone) Take 5 tabs for 2 days, 4 tabs for 2 days, 3 tabs for 2 days, 2 tabs for 2 days 1 tab for 2 days (Patient not taking: Reported on 03/08/2024) 30 Tablet 0 No current facility-administered medications for this visit. OBJECTIVE/PHYSICAL EXAMINATION: BP 126/58 | Pulse 62 | Resp 16 | Wt 113.9 kg (251 lb) | BMI 38.16 kg/m | BSA 2.34 m On my repeat 124/64 General: no acute distress and stated age Eyes: conjunctiva are pink and non-injected, sclera clear Neck: normal jugular venous pulse, no hepatojugular reflux Chest: normal shape and normal respiratory effort Lungs: clear to auscultation and percussion Cardiac Exam: Regular heart sounds, no murmurs, rubs, or gallops Abdomen: abdomen soft, non-tender, no abnormal masses and no hepatosplenomegaly Musculoskeletal: no gait disturbance, no weakness Extremities: trace edema with B/L varicosities. Neuro: grossly normal exam Psych: appropriate affect and insight. Data: EKG performed today and reviewed personally: NSR, LAD No change form prior EKG in December 2023 Cath report reviewed dated February 11, 2024: Interventional cath Summary: 1. Angiographically borderline LAD lesion is found by IFR analysis to be hemodynamically significant. 2. Successful PCI of the LAD using a single drug-eluting stent. 3. Patient will be on dual antiplatelet therapy with aspirin 81 mg daily and Brilinta 90 mg P.O. twice daily. 4. Guideline directed medical therapy for secondary prevention of coronary disease per primary tissue technician. Dobutamine stress echo report reviewed dated February 11, 2024 at [facility]: Echo report reviewed from [facility] dated 02/11/24: Latest Reference Range & Units 10/08/23 09:11 Triglycerides <=174 mg/dL 222 (H) Cholesterol <200 mg/dL 154 Non-HDL Cholesterol <=159 mg/dL 122 HDL Cholesterol >39 mg/dL 32 (L) LDL Cholesterol (Direct Measure) <=129 mg/dL 89 (H): Data is abnormally high (L): Data is abnormally low IMPRESSION: 68 year old male ICD-10-CM 1. Presence of stent in LAD coronary artery Z95.5 2. Chronic coronary artery disease I25.10 3. HTN, goal below 140/90 I10 4. Dyslipidemia, goal LDL below 70 E78.5 5. Coronary artery disease involving [place] coronary artery of [place] heart with angina pectoris (HCC) I25.119 RECOMMENDATIONS/PLAN: We spent today's visit reviewing recent hospitalization, cath reports, findings and discussing treatment of CAD. He is S/P AMY to the mid LAD with CLINICAL RESEARCH NURSE of the RCA with collaterals. He notes more fatigue and SOB with activities since stent placement, but prior "indigestion" and chest pain have resolved. He also notes dizziness. Possible side effects of the metoprolol. Will change metoprolol succinate to 12.5 mg at night to see if this minimizes his symptoms. If symptoms remain, consider stopping and initiation of Isosorbide or amlodipine. He has baseline/chronic headaches and may want to avoid nitrates. Dual antiplatelet therapy recommended. He anticipates future cervical spinal surgery. This will need to be delayed at least 6 months due to dual Antiplatelet therapy. 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 His employer is lenient. Recommend starting cardiac rehab and will re-evaluate symptoms in 4-6 weeks. If there is a "light duty" option at work, this may be feasible. Blood work today requested. Plan: Cbc Comprehensive metabolic panel LDL cholesterol (direct measure) Magnesium BNP, NT-pro Patient Instructions Change metoprolol succinate 25 mg to 1/2 tablet in the evening. If you are already taking this in the evening, let me know. Blood work today Start Cardiac rehab Patient is being evaluated in the cardiology office for ongoing care/risk management for CAD; HTN; dyslipidemia. I spent a total of 60 minutes on the date of service in preparation, delivery, and documentation ofthe care provided to Almas Pack excluding any time spent in the performance of separately billedservices. The patient agrees to the above plan and will call with additional questions or concerns. ER with all emergencies advised. Follow-up: Return in about 4 weeks (around 04/05/2024). | Check-out note: Print instructions 4-[address] Snider Blood work today Rosa Fajardo PA-C Department of Cardiology This chart was completed in part utilizing [employer] Speech Voice Recognition Software. Grammatical errors, random word insertions, prounoun errors, and incomplete sentences are an occasional consequence of this system due to software limitations, ambient noise, and hardware issues. Any formal questions or concerns about the content, text, or information contained within the body of this dictation should be directly addressed to the provider for clarification. documented in this encounter Nursing Notes * Dora Gonzalez MED ASSIST - 03/08/2024 11:23 AM EDT Chief Complaint Patient presents with NEW PATIENT Hospital discharge follow up. Examination Room: 6 Name: Almas Pack Date of : (1955). Reason for Visit: Hospital discharge, new patient Interim Hospitalization(s): [facility], ER cardiac cath, Drug eluting stent, another obstruction. Problems/Concerns: Chest pain, rated 5 on 1-10 scale. Arm pain, rated 5, bilateral. Pt reports headaches ranging mild to severe. Pt also has physical therapy referral and wants to know if and when todo that. Chest Pain/SOB: Yes, SOB on exertion and at rest. Chest pain radiating to arms rated 5/10. [facility] Discussed: Not applicable [facility] is a way you can talk to your provider online through e-mail. Would you like to sign up? I can activate it for you? ALREADY ACTIVE Patient was instructed to not get up on the exam table until directed and assisted by their provider; patient is to remain seated in the chair/ wheelchair/ exam table for fall prevention and safety reasons. Patient is aware to have assistance to step down off exam table with personnel. Patient voiced full comprehension of instructions. documented in this encounter Plan of Treatment Upcoming Encounters Date Type Department Care Team (Late st Contact Info) Description 03/08/2024 1:00 PM EDT Laboratory Laboratory, [facility] [address] [facility] [place] [id number] [facility] [address] [facility] [address] Chronic coronary artery disease; HTN, goal below 140/90; Dyslipidemia, goal LDL below 70; Presence of stent in LAD coronary artery 03/12/2024 8:30 AM EDT Office Visit Orthopaedics Spine Surgery, [place] [place] [address] [place] [id number] Kleber Batres MD [address] [place] [phone] 04/16/2024 10:30 AM EDT Office Visit Cardiology, [facility] [address] [place] [address] Rosa Fajardo PA-C [address] [place] [address] 05/17/2024 8:00 AM EDT Office Visit Pharmacy, [facility] [address] [place] [address] [facility] [address] [place] [address] 09/06/2024 11:00 AM EST Office Visit [place] [address] [place] [id number] Nisa Goodrich PA-C [address] [place] [address] 09/08/2024 7:40 AM EST Office Visit [place] [address] [place] [address] Alonso Daigle MD [address] [place] [address] Pending Results Name Type Priority Associated Diagnoses [...] coronary artery 03/08/2024 12:42 PM EDT Scheduled Orders Name Type Priority Associated Diagnoses Orde r Schedule EKG EKG Routine Chronic coronary artery disease Expected: 03/08/2024 (Approximate), Expires: 04/08/2025 COMPREHENSIVE METABOLIC PANEL Lab Routine Chronic coronary artery disease HTN, goal below 140/90 Dyslipidemia, goal LDL below 70 Presence of stent in LAD coronary artery Expected: 03/08/2024, Expires: 03/08/2025 LDL CHOLESTEROL (DIRECT MEASURE) Lab Routine Chronic coronary artery disease HTN, goal below 140/90 Dyslipidemia, goal LDL below 70 Presence of stent in LAD coronary artery Expected: 03/08/2024, Expires: 03/08/2025 MAGNESIUM Lab Routine Chronic coronary artery disease HTN, goal below 140/90 Dyslipidemia, goal LDL below 70 Presence of stent in LAD coronary artery Expected: 03/08/2024, Expires: 03/08/2025 BNP, NT-PRO Lab Routine Chronic coronary artery disease HTN, goal below 140/90 Dyslipidemia, goal LDL below 70 Presence of stent in LAD coronary artery Expected: 03/08/2024, Expires: 03/08/2025 Scheduled Procedures Name Priority Associated Diagnoses Date/Ti [...] Type Priority Associated Diagnoses Orde r Schedule CARDIAC REHAB REFERRAL OP Referral Within 10 days (routine) Chronic coronary artery disease HTN, goal below 140/90 Dyslipidemia, goal LDL below 70 Presence of stent in LAD coronary artery Coronary artery disease involving [place] coronary artery of [place] heart with angina pectoris (HCC) NSVT (nonsustained ventricular tachycardia) (HCC) Ordered: 03/08/2024 Health Maintenance Due Date Last Done Comments [...] Not on filedocumented as of this encounter Results * (ABNORMAL) CBC (03/08/2024 12:42 PM EDT) [facility] WBC 7.14 4.00 - 10.80 K/uL 03/08/2024 [...] 99.5 fL 03/08/2024 12:52 PM EDT [facility] [place] [facility] MCH 28.4 27.0 - 34.0 pg 03/08/2024 12:52 PM EDT [facility] [place] [facility] MCHC 33.3 32.0 - 36.0 g/dL 03/08/2024 12:52 PM EDT [facility] [place] [facility] RDW 15.7 11.5 - 15.5 % 03/08/2024 12:52 PM EDT [facility] [place] [facility] PLT 272 140 - 400 K/uL 03/08/2024 12:52 PM EDT [facility] [place] [facility] MPV 9.0 6.6 - 11.1 fL 03/08/2024 12:52 PM EDT [facility] [place] [facility] Blood Venous blood specimen / Unknown Venipuncture / Unknown 03/08/2024 12:42 PM EDT 03/08/2024 12:42 PM EDT Rosa Fajardo PA-C [facility] Address City/State/ZIP Co de Phone Number [facility] [place] [facility] [facility] [place] [address] documented in this encounter Visit Diagnoses Diagnosis Presence of stent in LAD coronary artery- Primary Postsurgical percutaneous transluminal coronary angioplasty status Chronic coronary artery disease Coronary atherosclerosis of unspecified type of vessel, [place] or graft HTN, goal below 140/90 Unspecified essential hypertension Dyslipidemia, goal LDL below 70 Other and unspecified hyperlipidemia Coronary artery disease involving [place] coronary artery of [place] heart with angina pectoris (HCC) NSVT (nonsustained ventricular tachycardia) (HCC) Paroxysmal ventricular tachycardia Chronic coronary artery disease Coronary atherosclerosis of unspecified type of vessel, [place] or graft HTN, goal below 140/90 Unspecified [...] and were consensually agreed upon. Care Teams Terrapin Fisher Relationship Specialty Start Date End Date Alonso Daigle MD [address] [facility] [place] [address] PCP - General 08/28/01 documented as of this encounter
--- OUTSIDE RECORDS SUMMARY | 2024-04-22 03:28 | External Medical Summary ---
Author Name Unknown Address Unknown Organization [id number]:[facility] [place] [address] - [address] [place] [address] Laboratory Report Ordering Provider Test Date Status PAWEL STEPHENS 03/08/2024 12:42:37 Final Observation Date Value Abnormality Reference (Units ) Status BUN 03/08/2024 12:42:37 20 6-20 (mg/dL) Final Creatinine 03/08/2024 12:42:37 1.1 0.6-1.2 (mg/dL) Final Glomerular filtration rate/1.73 sq M.predicted [Volume Rate/Area] in Serum, Plasma or Blood by Creatinine-based formula (CKD-EPI) 03/08/2024 12:42:37 74 >=60 (mL/min) Final eGFR is calculated based on the CKD-EPI 2020 equation Sodium 03/08/2024 12:42:37 139 135-146 (m mol/L) Final Potassium 03/08/2024 12:42:37 4.5 3.5-5.1 (m mol/L) Final Cl 03/08/2024 12:42:37 101 98-107 (mm ol/L) Final CO2 03/08/2024 12:42:37 26 22-32 (mmo l/L) Final Anion gap 03/08/2024 12:42:37 12 7-15 (mmol /L) Final Glucose 03/08/2024 12:42:37 134 Above high normal 70 -120 (mg/dL) Final Albumin 03/08/2024 12:42:37 4.5 3.8-5.0 (g /dL) Final AST (Aspartate aminotransferase) 03/08/2024 12:42:37 14 10-50 (U/L) Fin al Alk Phos 03/08/2024 12:42:37 105 35-130 (U/ L) Final Bilirubin, Total 03/08/2024 12:42:37 0.9 <=1 .2 (mg/dL) Final Calcium 03/08/2024 12:42:37 9.7 8.4-10.2 ( mg/dL) Final Protein 03/08/2024 12:42:37 7.0 6.0-8.3 (g /dL) Final ALT (Alanine aminotransferase) 03/08/2024 12:42:37 22 10-50 (U/L) Clyde serrano Performing Location LAB[facility]ATORY [place] [address] 0 - [address] [facility] [address]
--- OUTSIDE RECORDS SUMMARY | 2024-04-22 03:29 | External Medical Summary ---
Author Name Unknown Address Unknown Organization [id number]:[facility]ATORY [facility] - [address] [facility] [address] Laboratory Report Ordering Provider Test Date Status BRYANSRAVANIREYES 02/16/2024 08:46:26 Final Observation Date Value Abnormality Reference (Units ) Status HbA1C 02/16/2024 08:46:26 7.5 Above high normal 4. 0-5.6 (%) Final The use of HbA1c to monitor glycemic status is based on normal hemoglobin and HbA composition. This test should not be used in patients with abnormal hemoglobin that affects the half life of the red blood cell or the in vivo glycation rates. Glucose, estimated average 02/16/2024 08:46:26 169 Above high normal <126 (mg/dL) Clyde serrano Performing Location LABORATORY [facility] - [address] [facility] [address] [facility] [address]
--- OUTSIDE RECORDS SUMMARY | 2024-04-22 03:29 | External Medical Summary | Summary of Care ---
Author Name Unknown Organization [facility] Address [address] [facility] [address] Phone [phone] Care Team Providers Care Infectious Diseases Physician Name Role Phone Alonso Daigle MD Primary Care Provider [phone]- [phone] Reason for Visit * Reason Comments Outpatient Testing Encounter Details Date Type Department Care Team (Late st Contact Info) Description 02/16/2024 7:40 AM EDT Laboratory [facility], [facility] [address] [facility] [facility] [address] [facility] [address] [place] [address] Type 2 diabetes mellitus with hemoglobin A1c goal of less than 7.0% ([facility]) Allergies No known active allergiesdocumented as of this encounter (statuses as of 02/16/2024) Medications Medication Sig Dispensed Refills Start Date [...] breakfast. Active Lisinopril 20 MG Oral Tablet (Prinivil)Indicatio [...] 02/09/2024 Active predniSONE 10 MG Oral Tablet (Deltasone)Indicati ons:Viral [...] and 1 Tablet before bedtime. 02/12/2024 Active Semaglutide 7 MG Oral Tablet (Rybelsus)Indicatio ns:Type 2 diabetes mellitus with hemoglobin A1c goal of less than 7.0% (HCC) Take 7 mg by mouth daily first thing in the morning. Take 30 minutes before food and other medications. 90 Tablet 1 01/20/2024 4 Discontinue d(Patient preference/ discontinua tion) Rybelsus 3 MG Oral Tablet (Semaglutide)Indica tions:Type 2 diabetes mellitus with hemoglobin A1c goal of less than 7.0% ([facility]) Take 3 mg by mouth daily first thing in the morning. Take 30 minutes before food and other medications. Take 3mg for 30 days then increase to 7mg tablets. 30 Tablet 01/20/2024 4 Discontinue d(Medicatio n/Dose Changed) documented as of this encounter (statuses as of 02/16/2024) Active Problems Problem Noted Date Diagnosed Date [...] as of this encounter (statuses as of 02/16/2024) Resolved Problems Problem Noted Date Diagnosed Date [...] as of this encounter (statuses as of 02/16/2024) Immunizations Name Administration Dates Next Due COVID-19 mRNA, LNP-s, No Pre serve, 2-Dose Series (Addictive) 07/30/2021,11/30/2020,11/09/2020 COVID-19, MRNA-LNP, 23-24, P F, 30 MCG/0.3 mL, 12 YRS AND ABOVE, IM ([employer] Media-Comirnat) 06/30/2023 Covid-19, Mrna, Lnp-s, Pf, B ivalent, 30 Mcg, IM, 12 yrs and above (Addictive) 06/20/2022 HEP A - Hepatitis A (Adult [...] Description 02/17/2024 2:40 PM EDT Office Visit [facility] [address] [phone] Ronnie Bill MD [address] [facility] [address] 02/26/2024 8:40 AM EDT NeuroDiagnostic Study Neurophysiology [facility] [address] [place] [address] Ralph Torrez, DO [address] [place] [address] 03/12/2024 8:30 AM EDT Office Visit Orthopaedics Spine Surgery, [place] [address] [place] [address] Kleber Batres MD [address] [place] [address] 05/17/2024 8:00 AM EDT Office Visit Pharmacy, [facility] [address] [facility] [place] [address] [facility] [address] [facility] [place] [address] 09/06/2024 11:00 AM EST Office Visit [facility] [address] [place] [phone] Nisa Goodrich PA-C [address] [place] [address] Pending Results Name Type Priority Associated Diagnoses Date /Time HEMOGLOBIN A1C Lab Routine Type 2 diabetes mellitus with hemoglobin A1c goal of less than 7.0% ([facility]) 02/16/2024 8:46 AM EDT Scheduled Procedures Name Priority Associated Diagnoses Date/Ti ny ARTHRODESIS, ANT INTERBODY, BELOW C-2 Cervical spine [...] and were consensually agreed upon. Care Teams Infectious Diseases Physician Relationship Specialty Start Date End Date Alonso Daigle MD [address] [place] [address] PCP - General 08/28/01 documented as of this encounter
--- OUTSIDE RECORDS SUMMARY | 2024-04-22 03:29 | External Medical Summary | Summary of Care ---
Author Name Unknown Organization [facility] Address [address] [place] [address] Phone [phone] Care Team Providers Care Change Room Attendant Name Role Phone Alonso Daigle MD Primary Care Provider +1- [phone] Reason for Visit * Reason Comments NEW PATIENT Bilateral Lid evalua tion * Evaluate & Treat - Unlimited Visits (Within 10 days (routine)) - Authorized Specialty Diagnoses / Procedures Referred By Delbert stephen Referred To Contact Ophthalmology Diagnoses Droopy eyelid Hyun Hooker, OD [address] [place] [address] Referral ID Status Reason Start Date Expiration Date Visits Requested Visits Authorized [id number] Authorized Specialty Services Required 10/14/[phone] Encounter Details Date Type Department Care Team (Late st Contact Info) Description 02/16/2024 8:00 AM EDT Office Visit Ophthalmology, [facility] [address] [place] [address] Brandt Washington T, DO [address] [place] [id number] Brow ptosis, bilateral*; Dermatochalasis of both upper eyelids Allergies No known active allergiesdocumented as of [...] breakfast. Active Lisinopril 20 MG Oral Tablet (Prinivil)Beronicatio ns:HTN, goal below 140/90 TAKE ONE TABLET BY MOUTH EVERY DAY 90 Tablet 2 12/16/2023 5 Active Atorvastatin Calcium 80 MG Oral Tablet (Lipitor) TAKE ONE TABLET BY MOUTH EVERY DAY 90 Tablet 2 12/16/2023 5 Active Fluticasone Propionate 50 MCG/ACT Nasal Suspension (Flonase) ADMINISTER 2 SPRAYS INTO EACH NOSTRIL DAILY IN THE MORNING 48 g 2 12/16/2023 5 Active Semaglutide 7 MG Oral Tablet (Rybelsus)Beronicatio ns:Type 2 diabetes mellitus with hemoglobin A1c goal of less than 7.0% (HCC) Take 7 mg by mouth daily first thing in the morning. Take 30 minutes before food and other medications. 90 Tablet 1 01/20/2024 Active Rybelsus 3 MG Oral Tablet (Semaglutide)Indica tions:Type 2 diabetes mellitus with hemoglobin A1c goal of less than 7.0% ([facility]) Take 3 mg by mouth daily first thing in the morning. Take 30 minutes before food and other medications. Take 3mg for 30 days then increase to 7mg tablets. 30 Tablet 01/20/2024 Active Ondansetron 4 MG Oral Tablet Disintegrating [...] and 1 Tablet before bedtime. 02/12/2024 Active Naproxen 500 MG Oral Tablet (Naprosyn)Indicatio ns:Chronic pain of both shoulders,Cervical spine pain Take 1 Tablet by mouth in the morning and 1 Tablet before bedtime. With food.. 60 Tablet 5 02/09/2024 4 Discontinue d(Medicatio n List Clean Up) documented as of this encounter (statuses as [...] mRNA, LNP-s, No Pre serve, 2-Dose Series (Tujia) 07/30/2021,11/30/2020,11/09/2020 COVID-19, MRNA-LNP, 23-24, P F, 30 MCG/0.3 mL, 12 YRS AND ABOVE, IM ([employer]-Comirnat) 06/30/2023 Covid-19, Mrna, Lnp-s, Pf, B [...] as of this encounter Progress Notes * Brandt Washington, - 02/16/2024 8:12 AM EDT Almas Pack is a 68 year old male who presents for eyelid evaluation. Pt reports eyelids interfere with his peripheral vision. Pt reports worse with time. Ophthalmology Past History: glasses Ophthalmology Family History: none Ophthalmology ROS: Positive for eyelid interfering with his vision and no recent significant changein vision,no eye pain, redness, discharge,no diplopia Current Ophthalmic Medications: None EXAM: Base Eye Exam Visual Acuity (Snellen - Linear) Right Left Dist cc 20/20 -2 20/20 -1 Correction: Glasses Extraocular Movement Right Left Full Full Neuro/Psych Oriented x3: Yes Slit Lamp and Fundus Exam External Exam Right Left External 4+ Brow ptosis 4+ Brow ptosis Palpebral fissure 6 mm 6 mm MRD1 1 mm 1 mm Levator 15 mm 15 mm Slit Lamp Exam Right Left Lids/Lashes 2+ Dermatochalasis - upper lid 2+ Dermatochalasis - upper lid Conjunctiva/Sclera White and quiet White and quiet Cornea Clear Clear Anterior Chamber Deep and quiet Deep and quiet Iris Round and reactive Round and reactive Lens NSC NSC External photos obtained demonstrating above findings Octopus hoang obtained demonstrating superior field of vision constricted with improvement in the field with eyelid elevation IMPRESSION: 1. Brow ptosis 2. DCL mild PLAN: 1. Photo and hoang 2. To consider direct brwo lifts. Pt understands visible incision and scar 3. R/B/A discussed including but not limited to pain, bleeding, scarring, infection, Loss of vision, loss of eye, need for further surgery, eye drops in the post operative period, the use of regionalor general anesthesia. 4. Pt with recent ND and on Brilinta will see if a three day hold possible or delay procedure untilable to Brandt Washington DO documented in this encounter Nursing Notes * Abeba Gross TECH - 02/16/2024 7:38 AM EDT Almas Pack is a 68 year old male who presents for bilateral lid eval. Last Visit: Visit date not found (in office), Visit date not found (telemedicine) He currently states no change in vision. Are you diabetic? Yes. Do you check your sugar daily? NO. Last Hemoglobin A1C: Lab Results Component Value Date/Time HGBA1C 8.3 (H) 01/16/2024 07:53 AM HGBA1C 7.8 (H) 10/08/2023 09:11 AM HGBA1C 7.4 (H) 09/12/2022 08:16 AM HGBA1C 6.3 (H) 05/05/2020 07:47 AM HGBA1C 6.7 (H) 03/24/2019 09:17 AM HGBA1C 6.9 (H) 10/05/2018 08:21 AM Current Ophthalmic Medications: None Referred by: Eye Doctor at [facility] (Dr. Luevano?) COMPREHENSIVE OCULAR HISTORY Any history in yourself or blood related family of: -Diabetes- Self -Diabetic Retinopathy- No -High Blood Pressure- Self and Family -Heart Disease- Family -Thyroid Disease- No -Blindness- No -Macular Degeneration- No -Retinal Detachment- No -Glaucoma/Pressure in the Eye- Unsure -Chronic Problem Headaches or Migraines- No -Have you ever had any major surgery or serious injury of or around the eyes- no -Are your eyes chronically- Watery/Tearing, Seasonal Allergies, and N/A -Do you smoke- No Vision, IOP, current eyeglass Rx, pupil check and dilation if done can be found in ophth exam. documented in this encounter Plan of Treatment Upcoming Encounters Date Type Department Care Team (Late st Contact Info) Description 02/17/2024 2:40 PM EDT Office Visit [facility] [address] [place] [facility] [place] [phone] Ronnie Bill MD [address] [place] [address] 02/26/2024 8:40 AM EDT NeuroDiagnostic Study Neurophysiology [facility] [place] [address] [facility] [place] [address] Ralph Torrez, DO [address] [place] [address] 03/12/2024 8:30 AM EDT Office Visit Orthopaedics Spine Surgery, [facility] [place] [address] [place] [address] Kleber Batres MD [address] [place] [address] 09/06/2024 11:00 AM EST Office Visit [facility] [address] [place] [phone] Nisa Goodrich PA-C [address] [place] [address] Scheduled Orders Name Type Priority Associated Diagnoses Orde r Schedule EXTERNAL EYE PHOTOGRAPHY Procedures Routine Brow ptosis, bilateral Dermatochalasis of both upper eyelids Ordered: 02/16/2024 VISUAL FIELD EXAM(S), LIMITED Procedures Routine Brow ptosis, bilateral Dermatochalasis of both upper eyelids Ordered: 02/16/2024 Scheduled Procedures Name Priority Associated Diagnoses Date/Ti [...] as of this encounter Visit Diagnoses Diagnosis Brow ptosis, bilateral- Primary Dermatochalasis of both upper eyelids documented in this encounter Advance Directives * Full Code (Latest Code Status on File) Date Activated Date Inactivated Comments 07/05/2019 10:32 AM 07/05/2019 4:23 PM This order reflects the patients wishes and were consensually agreed upon. Care Teams Change Room Attendant Relationship Specialty Start Date End Date Alonso Daigle MD [address] [place] [address] PCP - General 08/28/01 documented as of this encounter
--- OUTSIDE RECORDS SUMMARY | 2024-04-22 03:29 | External Medical Summary | Summary of Care ---
Author Name Unknown Organization [facility] Address [address] [place] [address] Phone [phone] Care Team Providers Care Industrial Workers Name Role Phone Alonso Daigle MD Primary Care Provider +1- [phone] Reason for Visit * Reason Comments Dosage Adjustment In Person (Anticoag Cl inic) Diabetes Education * Evaluate & Treat - Unlimited Visits (Within 10 days (routine)) - Authorized Specialty Diagnoses / Procedures Referred By Contac t Referred To Contact Pharmacist / Pharmacy Diagnoses Type 2 diabetes mellitus with hemoglobin A1c goal of less than 7.0% ([facility]) Alonso Daigle MD [facility] [place] [address] Referral ID Status Reason Start Date Expiration Date Visits Requested Visits Authorized [id number] Authorized Specialty Services Required 01/20/2024 99 99 Encounter Details Date Type Department Care Team ([facility] st Contact Info) Description 02/16/2024 8:30 AM EDT Office Visit Pharmacy, [facility] [address] [facility] [place] [address] [facility] [address] [place] [address] Type 2 diabetes mellitus with hemoglobin A1c goal of less than 7.0% ([facility])* Allergies No known active allergiesdocumented as of [...] mRNA, LNP-s, No Pre serve, 2-Dose Series (Jobdoh) 07/30/2021,11/30/2020,11/09/2020 COVID-19, MRNA-LNP, 23-24, P F, 30 MCG/0.3 mL, 12 YRS AND ABOVE, IM (Moodyo-Comirnaty) 06/30/2023 Covid-19, Mrna, Lnp-s, Pf, B ivalent, 30 Mcg, IM, 12 yrs and above (Pfizer) 06/20/2022 HEP A - Hepatitis A (Adult > 18 yrs) 02/16/2010, 09/15/2009 Hepatitis B, 20+ yrs 05/15/2016,12/13/2015,03/09 /2016 Pneumococcal Polysaccharide PPV23 (Pneumovax) 07/30/2021,09/12/2011 Season Influenza, [...] as of this encounter Progress Notes * Sally Moya, [facility] - 02/16/2024 8:39 AM EDT Medication Therapy [facility] - Diabetes Management Progress Note Almas Pack, identified by name and date of , is a 68 year old male being seen for diabetes management/education. Patient presents for initial diabetic visit. Past Medical History: Diagnosis Date Dyslipidemia, goal to be determined HTN, goal below 140/90 11/08/2014 Pulmonary Nodule 07/03 0.7 cm RLL - stable on CT 07/03, 09/03, 03/03 Type 2 diabetes mellitus with hemoglobin A1c goal of less than 7.0% ([facility]) 12/05/2011 ICD-10 update of inactive term Diagnosis: Type 2 Age of diabetes diagnosis: several years ago Family history of diabetes: not asked Microvascular complications: none Macrovascular complications: hypertension dyslipidemia coronary artery disease History of Treatment Barriers: Lifestyle: None Therapy considerations: Cost Medication: None: Patient Preference DIABETES: Current diabetic medications: Metformin 1000 mg BID Serum creatinine: 1.1 mg/dL 10/08/23 0911 Estimated creatinine clearance: 79.6 mL/min Medication Injection Site: N/A Lifestyle: Diet: unchanged Glucose Review/SMBG: Readings per patient memory/recall: Patient is currently testing 0 times a day Hypoglycemia: Does your blood sugar go below 70 mg/dL? No Hyperglycemia symptoms present: none Recent Labs Units 01/16/24 0753 10/08/23 0911 09/12/22 0816 HEMOGLOBIN A1C - [facility] % 8.3* 7.8* 7.4* Recent Labs Units 10/08/23 0911 09/12/22 0816 05/10/22 0830 ESTIMATED GLOMERULAR FILTRATION RATE - [facility] mL/min 76 80 82 CREATININE - [facility] mg/dL 1.1 1.0 1.0 HYPERTENSION: Patient on ACEi/ARB: yes BP Readings from Last 3 Encounters: 02/09/24 128/68 11/17/23 124/62 09/03/23 132/64 Blood pressure at goal: yes HYPERLIPIDEMIA: Patient is taking moderate or high intensity statin: yes HEALTH MAINTENANCE REVIEW: Health Maintenance Due Topic Date Due Hepatitis C Screening Never done Depression Screening 05/05/2021 Pneumococcal Vaccine: 65+ Years (2 of 2 - PCV) 07/30/2022 COVID-19 Vaccine ( season) 2023 ASSESSMENT & PLAN: BG Readings - Blood sugars uncontrolled. A1c has improved from 8.3% to 7.5% while in hospital. Awaiting today's results from lab. Medications - Reviewed current regimen, patient is adherent to regimen. Patient increased metforminto 1000 mg BID rather than 500 mg BID. Notes no side effects or concerns and BG values do appear costa trending down. Will give it 3-4 months and then repeat A1c to determine if controlled or will require additional therapy to maintain A1c. Diet, Exercise, Lifestyle - No significant lifestyle changes since last visit. Discussed with patient. Patient is agreeable to SMBG 0-1 time(s) daily. Patient aware to contact clinic if any hypoglycemia before next visit. MEDICATION CHANGES: no change Diabetic Medications: Metformin 1000 mg BID HEALTH MAINTENANCE INTERVENTIONS: Labs: Up to Date Immunizations: Up to Date Foot Exam: Up to Date Eye Exam: Up to Date Annual Wellness Visit: N/A FOLLOW UP: Return to clinic in 8 weeks 05/17/2024 Sally Moya [facility] Clinical Pharmacist - Merchandise Collector Medication Therapy Management Clinic 02/16/2024, 8:40 AM documented in this encounter Plan of Treatment Upcoming Encounters Date Type Department Care Team (Late st Contact Info) Description 02/17/2024 2:40 PM EDT Office Visit [facility] [address] [place] [phone] Ronnie Bill MD [address] [place] [address] 02/26/2024 8:40 AM EDT NeuroDiagnostic Study Neurophysiology [facility] [address] [facility] [place] [address] Ralph Torrez, DO [address] [facility] [place] [address] 03/12/2024 8:30 AM EDT Office Visit Orthopaedics Spine Surgery, Anaya [place] [address] [place] [address] Kleber Batres MD [address] [place] [address] 05/17/2024 8:00 AM EDT [facility] [address] [facility] [place] [address] [facility] [place] [address] 09/06/2024 11:00 AM EST Office Visit [facility] [address] [facility] [place] [phone] Nisa Goodrich PA-C [address] [facility] [place] [id number] Scheduled Procedures Name Priority Associated Diagnoses Date/Ti [...] A1c goal of less than 7.0% ([facility])- Primary documented in this encounter Advance Directives * Full Code (Latest Code Status on File) Date Activated Date Inactivated Comments 07/05/2019 10:32 AM 07/05/2019 4:23 PM This order reflects the patients wishes and were consensually agreed upon. Care Teams Industrial Workers Relationship Specialty Start Date End Date Alonso Daigle MD [address] [place] [address] PCP - General 08/28/01 documented as of this encounter
[2024-04-22 07:53] LABS: Hematocrit (blood only) 35.2 % (42.0-52.0); Hemoglobin 11.6 g/dl (14.0-18.0)
--- NOTE | 2024-04-22 08:06 | Electrocardiogram Report ---
Test Reason : Blood Pressure : */* mmHG Vent. Rate : 75 BPM Atrial Rate : 75 BPM P-R Int : 218 ms QRS Dur : 92 ms QT Int : 374 ms P-R-T Axes : 56 -52 27 degrees QTcB Int : 417 ms Sinus rhythm with 1st degree A-V block Left anterior fascicular block Abnormal ECG When compared with ECG of 21-Apr-2024 13:44, No significant change was found Confirmed by Earnest Amaro ([id number]) on 04/22/2024 8:06:13 AM Referred By: REFERRED SELF Confirmed By: Earnest Amaro
[2024-04-22] MEDS: EZETIMIBE 10 MG TAB PO SCH (08:15)
[2024-04-22] MEDS: CLOPIDOGREL BISULFATE 75 MG TAB PO SCH (08:15)
[2024-04-22] MEDS: FLUTICASONE PROPIONATE NA SPR 16 GM BTL SCH (08:16)
[2024-04-22] MEDS: METOPROLOL SUCC 25MG EXT REL TAB PO SCH (08:16)
[2024-04-22] MEDS: ISOSORBIDE MONO EXTENDED REL 30 MG TABCR PO SCH (08:16)
[2024-04-22] MEDS: MULTIVITAMIN TAB PO SCH (08:17)
[2024-04-22 08:29] LABS: BUN Creatinine Ratio 16.3 (10-20); Calcium 8.5 mg/dl (8.6-10.3); Creatinine Clr Calc Pharmacy 83.4 ml/min; Est GFR (African American) 85.7 ml/min; Est GFR (Non-African American) 73.9 ml/min; Magnesium 1.6 mg/dl (1.7-2.4); Phosphorus 3.2 mg/dl (2.5-4.9)
[2024-04-22 08:35] LABS: Troponin I High Sensitivity 3.7 pg/ml (0-20)
[2024-04-22 08:37] LABS: Estimated Average Glucose 140 mg/dl; Hemoglobin A1C 6.5 % (4.5-5.6)
--- OUTSIDE RECORDS SUMMARY | 2024-04-22 09:01 | External Medical Summary | Summary of Care ---
Author Name Unknown Organization [facility] Address [address] [facility] [address] Phone [phone] Care Team Providers Care Chalk Machine Operator Name Role Phone Nisa Goodrich PA-C Primary Care Provider [phone] Reason for Referral * Evaluate & Treat - Unlimited Visits (Within 30 days (routine)) - Authorized Specialty Diagnoses / Procedures Referred By Contgo t Referred To Contact Gastroenterology Diagnoses HTN, goal below 140/90 Chronic coronary artery disease NSVT (nonsustained ventricular tachycardia) (HCC) Dyslipidemia, goal LDL below 70 Chest pain Presence of stent in LAD coronary artery Dizziness Gastrointestinal hemorrhage, unspecified gastrointestinal hemorrhage type Rosa Fajardo PA-C [address] [place] [address] [facility] [address] [facility] [place] [address] Referral ID Status Reason Start Date Expiration Date Visits Requested Visits Authorized [id number] Authorized Specialty Services Required 04/16/2024 999 999 Question Answer Referral Priority Within 30 days (routine) Where should this appointment be scheduled? [facility] For what condition is the patient being referred? All Gastro Conditions Comments Diarrhea, GI bleeding Reason for Visit * Reason Comments Follow Up Encounter Details Date Type Department Care Team (Latest Contact Info) Description 04/16/2024 10:30 AM EDT Office Visit Cardiology, [facility] [address] [facility] [place] [address] Rosa Fajardo PA-C [address] [place] [address] Chronic coronary artery disease*; HTN, goal below 140/90; NSVT (nonsustained ventricular tachycardia) (HCC); Dyslipidemia, goal LDL below 70; Presence of stent in LAD coronary artery; Dizziness; Gastrointestinal hemorrhage, unspecified gastrointestinal hemorrhage type Allergies No known active allergiesdocumented as of this encounter (statuses as of 04/21/2024) Medications Medication Sig Dispensed Refills Start Date [...] Oral Tablet Extended Release 24 Hour (toPROL XL)Indications:HTN , goal below 140/90,Chronic coronary artery disease,NSVT (nonsustained ventricular tachycardia) (HCC),Dyslipidemia , goal LDL below 70 Take one half Tablet by mouth in the morning. 45 Tablet 3 04/16/20 24 Active Isosorbide Mononitrate ER 30 MG Oral Tablet Extended Release 24 Hour (Imdur)Indications :HTN, goal below 140/90,Chronic coronary artery disease,NSVT (nonsustained ventricular tachycardia) (HCC),Dyslipidemia , goal LDL below 70 Take 1 Tablet by mouth in the morning. 90 Tablet 3 04/16/20 24 Active Metoprolol Succinate ER 25 MG Oral Tablet Extended Release 24 Hour (Toprol XL)Indications:HTN , goal below 140/90,NSVT (nonsustained ventricular tachycardia) (HCC),Dyslipidemia , goal LDL below 70 Take 0.5 Tablets by mouth in the morning. 7 Tablet 04/16/20 24 Active Clopidogrel Bisulfate 75 MG Oral Tablet (Plavix) Take 1 Tablet by mouth in the morning. 34 Tablet 11 04/16/20 24 Active PreserVision AREDS 2 Oral Tablet Chewable Take by mouth. Discontinued Citrucel 500 MG Oral Tablet (Methylcellulose (Laxative)) Take 1 Tablet by mouth as needed for Constipation. Discontinued predniSONE 10 MG Oral Tablet (Deltasone)Indicat ions:Viral illness Take 5 tabs for 2 days, 4 tabs for 2 days, 3 tabs for 2 days, 2 tabs for 2 days 1 tab for 2 days 30 Tablet 02/09/20 24 Discontinued Metoprolol Succinate ER 25 MG Oral Tablet Extended Release 24 Hour (toPROL XL) 0.5 Tablets. 02/12/20 24 Discontinued(Re fill) Isosorbide Mononitrate ER 30 MG Oral Tablet Extended Release 24 Hour (Imdur) Take 0.5 Tablets by mouth in the morning. 90 Tablet 3 03/10/20 24 Discontinued(Re fill) Brilinta 90 MG Oral TabletIndications: Presence of stent in LAD coronary artery Take 1 Tablet by mouth in the morning and 1 Tablet before bedtime. 60 Tablet 03/16/20 24 Discontinued Ticagrelor 90 MG Oral Tablet (Brilinta)Indicati ons:Presence of stent in LAD coronary artery Take 1 Tablet by mouth in the morning and 1 Tablet before bedtime. 180 Tablet 3 03/16/20 24 Discontinued Metoprolol Succinate 25 MG Oral Capsule ER 24 Hour Sprinkle Take 12.5 mg by mouth in the morning. Short term for mail order . Discontinued documented as of this encounter (statuses as of 04/21/2024) Active Problems Problem Noted Date Diagnosed Date NSVT (nonsustained ventricular tachycardia) 04/2024 Presence of stent in LAD coronary artery Chronic coronary artery disease 02/17/2024 Cervical spine [...] as of this encounter (statuses as of 04/21/2024) Resolved Problems Problem Noted Date Diagnosed Date [...] as of this encounter (statuses as of 04/21/2024) Immunizations Name Administration Dates Next Due COVID-19 mRNA, LNP-s, No Pre serve, 2-Dose Series (Perfectore) 07/30/2021,11/30/2020,11/09/2020 COVID-19, MRNA-LNP, 23-24, P F, 30 [...] Sign Reading Time Taken Comments Blood Pressure 138/78 04/16/2024 10:23 AM EDT Pulse 80 04/16/2024 10:23 AM EDT Temperature - - Respiratory Rate - - Oxygen Saturation 93% 04/16/2024 10:23 AM EDT Inhaled Oxygen Concentration - - Weight 113.4 kg (250 lb) 04/16/2024 10:23 AM EDT Height - - Body Mass Index 38.01 03/12/2024 8:37 AM EDT documented in this encounter Patient Instructions * Patient Instructions* Rosa Fajardo PA-C - 04/16/2024 10:51 AM EDT Change Brilinta to Plavix (clopidogrel) Take Brilinta tonight as usual. Tomorrow morning, stop Brilinta and take plavix 75 mg - 1 tablet daily Plavix was sent to your local pharmacy Increase isosorbide to 30 mg - 1 full tablet daily Start iron supplement - over the counter - Vitron C Schedule GI appt Wear heart monitor for 7 days. documented in this encounter Progress Notes * Rosa Fajardo PA-C - 04/16/2024 10:34 AM EDT Images from the original note were not included. Cardiology F/U: History of Present Illness: Almas Pack is a 68 year old male here today for close cardiology follow up. History includes: CAD S/P AMY to the LAD on 02/11/24. FINISHED GARMENT INSPECTOR of the RCA also noted with collaterals. Med management recommended for RCA occlusion. Hypertension Dyslipidemia DM Cervical spondylosis - future spinal surgery? Recent GI bleeding Patient admitted to [facility] in February 19, 2024 with complaints of epigastric and chest pain radiating down both arms. EKG demonstrated normal sinus rhythm without ischemic changes. High sensitivity troponin was negative x3. Patient subsequently underwent dobutamine stress echo which was positive for inferior wall ischemia. He also had sustained VT with dobutamine infusion. Patient was subsequently sent for diagnostic cardiac catheterization revealing 100% FINISHED GARMENT INSPECTOR of the RCA and 80% mid LAD lesion, treated with 1 AMY. At f/u appt due to SOB/chest tightness, isosorbide was initiated and metoprolol reduced due to fatigue. Patient reports this aided his symptoms. His primary concern recently over the last few weeks is increased BRBPR. Large amount of blood noted at times in the toilet. No abdominal pain. He remains on ASA and Brilinta. Notes intermittent SOB as well. Happens "randomly". No recent exertional chest pain. He has taken TUMS on occasion but symptoms resolve. Frequent diarrhea also noted. Currently in clinic he is without symptoms. BP controlled Dr. Montero triaged a phone call last week while director of cardiopulmonary services regarding GI bleeding. Hbg was updated and relatively stable. Recommend possibly transitioning from Brilinta to Plavix today without reload. 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 He reports intermittent dizziness/lightheadedness. But no syncope. Review of Systems: See HPI for pertinent positives. All others negative, other than those noted in HPI. Past Medical History: Patient Active Problem List Diagnosis Generalized osteoarthritis Type 2 diabetes mellitus with hemoglobin A1c goal of less than 7.0% (HCC) Dyslipidemia, goal LDL below 70 HTN, goal below 140/90 Primary osteoarthritis of left knee Cervical spine pain Cervical spinal stenosis Spondylosis, cervical, with myelopathy Chronic neck pain Upper extremity weakness Pre-op testing Chronic coronary artery disease NSVT (nonsustained ventricular tachycardia) (HCC) Presence of stent in LAD coronary artery Past Surgical History: Procedure Laterality Date COLONOSCOPY, DIAGNOSTIC (RECTUM) 05/07/2018 normal, repeat 10 yrs/COLONOSCOPY FLEXIBLE PROXIMAL DIAGNOSTIC performed by Dominic Jimenez MD at ENDOSCOPY [facility] COLORECTAL CANCER SCREEN; NOT AT RISK 01/13/2007 repeat in [address] CHEST W CONTRAST mediastinal LAD and 0.7 cm nodule RLL - stable 07/03,09/03,03/03 KNEE ARTHROSCOPY/MENISCECTOMY Left 07/05/2019 ARTHROSCOPY KNEE MEDIAL OR LATERAL MENISCECTOMY performed by Aspen Villalpando DO at OR [facility] [place] RPLCMT PROST AORTIC VALVE OPEN XCP HOMOGRF/STENT 02/11/2024 REPAIR INGUINAL HERNIA, UNDER 6 MO 3 months old STRESS ECHO (EXERCISE) 06/2005 nl UMBIL HERNIA REPAIR (REDUCIBLE) AGE 5+YR N/A 08/24/2018 08/24/2018 umbilical hernia repair -- [facility] DR. 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 180 Tablet 3 Lisinopril 20 MG Oral Tablet (Prinivil) TAKE ONE TABLET BY MOUTH EVERY DAY 90 Tablet 2 Atorvastatin Calcium 80 MG Oral Tablet (Lipitor) TAKE ONE TABLET BY MOUTH EVERY DAY 90 Tablet 2 Fluticasone Propionate 50 MCG/ACT Nasal Suspension (Flonase) ADMINISTER 2 SPRAYS INTO EACH NOSTRIL DAILY IN THE MORNING 48 g 2 Esomeprazole Magnesium 20 MG Oral Capsule Delayed Release (NexIUM) Take 1 Capsule by mouth daily before breakfast. Metoprolol Succinate ER 25 MG Oral Tablet Extended Release 24 Hour (toPROL XL) 0.5 Tablets. Isosorbide Mononitrate ER 30 MG Oral Tablet Extended Release 24 Hour (Imdur) Take 0.5 Tablets by mouth in the morning. 90 Tablet 3 Gabapentin 100 MG Oral Capsule (Neurontin) Take 1 Capsule by mouth at bedtime. 90 Capsule 1 Ezetimibe 10 MG Oral Tablet (Zetia) Take 1 Tablet by mouth in the morning. 90 Tablet 3 Brilinta 90 MG Oral Tablet Take 1 Tablet by mouth in the morning and 1 Tablet before bedtime. 60 Tablet 0 Ticagrelor 90 MG Oral Tablet (Brilinta) Take 1 Tablet by mouth in the morning and 1 Tablet before bedtime. 180 Tablet 3 Rybelsus 7 MG Oral Tablet Take 7 mg by mouth daily first thing in the morning. Hydrocortisone Acetate 25 MG Rectal Suppository (Anusol-HC) Administer into the rectum 2 times a day in the morning and at bedtime as needed for Hemorrhoids. Up to 2 weeks. 24 Suppository 1 Metamucil Fiber Oral Tablet Chewable Take by mouth. Metoprolol Succinate 25 MG Oral Capsule ER 24 Hour Sprinkle Take 12.5 mg by mouth in the morning. Short term for mail order . Ondansetron 4 MG Oral Tablet Disintegrating (Zofran) Place 1 Tablet on tongue every 8 hours as needed for Nausea. dissolve on tongue. (Patient not taking: Reported on 03/08/2024) 20 Tablet 0 No current facility-administered medications for this visit. OBJECTIVE/PHYSICAL EXAMINATION: BP 138/78 | Pulse 80 | Wt 113.4 kg (250 lb) | SpO2 93% | BMI 38.01 kg/m | BSA 2.33 m General: no acute distress and stated age [...] Data: EKG performed today and reviewed personally: Sinus rhythm with 1st degree AV block Left axis deviation Abnormal ECG When compared with ECG of 08-Mar-2024 11:42, No significant change was found EKG performed March 2024: NSR, LAD No change form prior EKG [...] secondary prevention of coronary disease per primary detasseling crew supervisor. Dobutamine stress echo report reviewed dated February 11, 2024 at [facility]: Echo report reviewed from [facility] dated 02/11/24: Latest Reference Range & Units 10/08/23 09:11 Triglycerides <=174 mg/dL 222 (H) Cholesterol <200 mg/dL 154 Non-HDL Cholesterol <=159 mg/dL 122 HDL Cholesterol >39 mg/dL 32 (L) LDL Cholesterol (Direct Measure) <=129 mg/dL 89 (H): Data is abnormally high (L): Data is abnormally low Latest Reference Range & Units 03/22/24 14:43 04/15/24 14:16 WBC 4.00 - 10.80 K/uL 7.15 7.23 RBC 4.50 - 5.25 M/uL 4.48 4.49 HGB 14.0 - 16.8 g/dL 13.1 (L) 13.1 (L) HCT 40.0 - 48.4 % 38.4 (L) 38.2 (L) MCV 82.0 - 99.5 fL 85.7 85.1 MCH 27.0 - 34.0 pg 29.2 29.2 MCHC 32.0 - 36.0 g/dL 34.1 34.3 RDW 11.5 - 15.5 % 15.4 15.4 PLT 140 - 400 K/uL 243 255 MPV 6.6 - 11.1 fL 8.6 8.4 CBC WITH WBC DIFFERENTIAL Rpt ! (L): Data is abnormally low !: Data is abnormal Rpt: View report in Results Review for more information IMPRESSION: 68 year old male ICD-10-CM 1. Chronic coronary artery disease I25.10 2. HTN, goal below 140/90 I10 3. NSVT (nonsustained ventricular tachycardia) (HCC) I47.29 4. Dyslipidemia, goal LDL below 70 E78.5 5. Chest pain R07.9 6. Presence of stent in LAD coronary artery Z95.5 7. Dizziness R42 8. Gastrointestinal hemorrhage, unspecified gastrointestinal hemorrhage type K92.2 RECOMMENDATIONS/PLAN: Patient with multiple ongoing issues. Ongoing fatigue/dyspnea and GI bleeding noted. Mild anemia noted this week, but stable. As previously discussed with Dr. Montero, will transition the patient from Brilinta to Plavix today WITHOUT reload given ongoing bleeding issues. Recommend sooner eval with GI. May need sooner endoscopies. He is S/P AMY to the mid LAD with FINISHED GARMENT INSPECTOR of the RCA with collaterals. His chest pain has improved from stent placement but ongoing fatigue and SOB reported. Will try increasing isosorbide to 30 mg - 1 tab daily. He also notes dizziness. History of VT during hospitalization noted. STARRO ordered. 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 He will remain off work at this time given his ongoing issues/complaints Patient Instructions Change Brilinta to Plavix (clopidogrel) Take Brilinta tonight as usual. Tomorrow morning, stop Brilinta and take plavix 75 mg - 1 tablet daily Plavix was sent to your local pharmacy Increase isosorbide to 30 mg - 1 full tablet daily Start iron supplement - over the counter - Vitron C Schedule GI appt Wear heart monitor for 7 days. Patient is being evaluated in the cardiology office for ongoing care/risk management for CAD; HTN; dyslipidemia. I spent a total of 45 minutes on the date of service in preparation, delivery, and documentation ofthe care provided to Almas Pack excluding any time spent in the performance of separately billedservices. The patient agrees to the above plan and will call with additional questions or concerns. ER with all emergencies advised. Follow-up: Return in about 4 weeks (around 05/14/2024). | Check-out note: Print instructions Schedule GI referral - next available appt 4 week f/u Agatha Fajardo PA-C Department of Cardiology This chart was completed in part utilizing [employer] Speech Voice Recognition Software. Grammatical errors, random word insertions, prounoun errors, and incomplete sentences are an occasional consequence of this system due to software limitations, ambient noise, and hardware issues. Any formal questions or concerns about the content, text, or information contained within the body of this dictation should be directly addressed to the provider for clarification. documented in this encounter Procedure Notes * Mickey Montero, - 04/16/2024 10:36 AM EDTAssociated Order(s): EKG REASON FOR STUDY: chest pain and SOB;chest pain and SOB CONCLUSIONS: Sinus rhythm with 1st degree AV block Left axis deviation Abnormal ECG When compared with ECG of 08-Mar-2024 11:42, No significant change was found Ventricular Rate: 80 Atrial Rate: 80 IA Interval: 210 QRS Duration: 102 QT/QTc: 366/422 ms P-R-T [place]: 61 : -53 : 51 degrees documented in this encounter Nursing Notes * Jil Yanez CMA - 04/16/2024 10:25 AM EDT Examination Room: 1 Name: Almas Pack Date of : (1955) Reason for Visit: 3m Interim Hospitalization(s): none Problems/Concerns: Blood in stools Chest Pain/SOB: chest pain, has been taking Tums. Helps some what. Pt is having SOB My [facility] is a way you can [...] 05/17/2024 8:00 AM EDT Office Visit Pharmacy, [facility] [address] [place] [address] [facility] [address] [place] [address] 06/01/2024 10:00 AM EDT Office Visit Cardiology, [facility] [address] [place] [address] William Snider DO [address] [place] [address] 06/02/2024 11:00 AM EDT Office Visit Gastroenterology, [facility] [address] [place] [address] Kary Perez CRNP [address] [place] [address] 07/01/2024 9:16 AM EDT Hospital Encounter OR [facility], Operating Room, [facility] - 4th Floor [address] [place] [address] Marciano Lopez MD [address] [place] [address] 07/01/2024 9:16 AM EDT - 07/01/2024 9:52 AM EDT Surgery OR [facility], Operating Room, [facility] - 4th Floor [address] [place] [address] Marciano Lopez MD [address] [place] [address] COLONOSCOPY FLEXIBLE PROXIMAL DIAGNOSTIC 09/06/2024 11:00 AM EST Office Visit [place] [address] [place] [facility] [place] [id number] Nisa Goodrich PA-C [address] [place] [address] 09/08/2024 7:40 AM EST Office Visit Loc[facility] [address] [facility] [id number] Alonso Daigle MD [address] [place] [facility] [place] [address] 09/14/2024 8:45 AM EST Office Visit Orthopaedics Spine Surgery, [address], [place] [address] [place] [address] Kleber Batres MD [address] [place] [address] Scheduled Orders Name Type Priority Associated Diagnoses Orde r Schedule EXTERNAL EKG 2 TO 7 DAYS Holter Routine HTN, goal below 140/90 Chronic coronary artery disease NSVT (nonsustained ventricular tachycardia) (HCC) Dyslipidemia, goal LDL below 70 Presence of stent in LAD coronary artery Dizziness Gastrointestinal hemorrhage, unspecified gastrointestinal hemorrhage type Expected: 04/17/2024 (Approximate), Expires: 04/16/2025 Scheduled Procedures Name Priority Associated Diagnoses Date/Ti [...] neck pain Upper extremity weakness Pre-op testing Scheduled Referrals Name Type Priority Associated Diagnoses Orde r Schedule ADULT GASTROENTEROLOGY REFERRAL OP Referral Within 30 days (routine) HTN, goal below 140/90 Chronic coronary artery disease NSVT (nonsustained ventricular tachycardia) (HCC) Dyslipidemia, goal LDL below 70 Presence of stent in LAD coronary artery Dizziness Gastrointestinal hemorrhage, unspecified gastrointestinal hemorrhage type Ordered: 04/16/2024 Health Maintenance Due Date Last Done Comments [...] 02/09/2021, Additional history exists GFR 04/15/2025 04/15/2024, 07/0 04/2024, 10/08/2023, Additional history exists Colonoscopy 05/07/2028 05/07/2018, 09/0 [...] Procedure Name Priority Date/Time Associated Diagnosis Comments IA ECG ROUTINE ECG W/LEAST 12 LDS W/I&R Routine 04/16/2024 10:36 AM EDT documented in this encounter Results * EKG (04/16/2024 10:36 AM EDT) 04/16/2024 10:3 6 AM EDT Narrative Procedure Note Mickey Montero DO - 04/16/2024 10:36 AM EDT REASON FOR STUDY: chest pain and SOB;chest pain and SOB CONCLUSIONS: Sinus rhythm with 1st degree AV block Left axis deviation Abnormal ECG When compared with ECG of 08-Mar-2024 11:42, No significant change was found Ventricular Rate: 80 Atrial Rate: 80 IA Interval: 210 QRS Duration: 102 QT/QTc: 366/422 ms P-R-T [place]: 61 : -53 : 51 degrees Rosa Fajardo PA-C EKG [facility] documented in this encounter Visit Diagnoses Diagnosis Chronic coronary artery disease- Primary Coronary atherosclerosis of unspecified type of vessel, ione or graft HTN, goal below 140/90 Unspecified essential hypertension NSVT (nonsustained ventricular tachycardia) (HCC) Paroxysmal ventricular tachycardia Dyslipidemia, goal LDL below 70 Other and unspecified hyperlipidemia Presence of stent in LAD coronary artery Postsurgical percutaneous transluminal coronary angioplasty status Dizziness Dizziness and giddiness Gastrointestinal hemorrhage, unspecified gastrointestinal hemorrhage type Blood in stool documented in this encounter Advance Directives * Full Code (Latest Code Status on File) Date Activated Date Inactivated Comments 07/05/2019 10:32 AM 07/05/2019 4:23 PM This order reflects the patients wishes and were consensually agreed upon. Care Teams Chalk Machine Operator Relationship Specialty Start Date End Date Nisa Goodrich PA-C [address] [place] [address] PCP - General Physician Tie Puller 03/14/24 documented as of this encounter
--- OUTSIDE RECORDS SUMMARY | 2024-04-22 09:01 | External Medical Summary | Summary of Care ---
Author Name Unknown Organization [facility] Address [address] [place] [address] Phone [phone] Care Team Providers Care Baseball U[employer] Name Role Phone Nisa Goodrich PA-C Primary Care Provider [phone] Reason for Visit * Reason Comments Outpatient Testing Encounter Details Date Type Department Care Team (Late st Contact Info) Description 04/21/2024 10:50 AM EDT Laboratory Laboratory, [facility] [address] [facility] [place] [phone] [facility] [address] [facility] [place] [address] Chest pain; Blood in stool Allergies No known active [...] evening meals. 180 Tablet 3 10/17/2023 Active Lisinopril 20 MG Oral Tablet (Prinivil)Indicatio [...] the morning. 90 Tablet 3 03/15/2024 Active Rybelsus 7 MG Oral Tablet Take 7 mg by mouth daily first thing in the morning. 03/15/2024 Active Hydrocortisone Acetate 25 MG Rectal Suppository (Anusol-HC)Indicati ons:Rectal bleeding Administer into the rectum 2 times a day in the morning and at bedtime as needed for Hemorrhoids. Up to 2 weeks. 24 Suppository 1 03/22/2024 Active Metamucil Fiber Oral Tablet Chewable Take by mouth. Active Metoprolol Succinate ER 25 MG Oral Tablet Extended Release 24 Hour (toPROL XL)Indications:HTN, goal below 140/90,Chronic coronary artery disease,NSVT (nonsustained ventricular tachycardia) (HCC),Dyslipidemia, goal LDL below 70 Take one half Tablet by mouth in the morning. 45 Tablet 3 04/16/2024 Active Isosorbide Mononitrate ER 30 MG Oral Tablet Extended Release 24 Hour (Imdur)Indications: HTN, goal below 140/90,Chronic coronary artery disease,NSVT (nonsustained ventricular tachycardia) (HCC),Dyslipidemia, goal LDL below 70 Take 1 Tablet by mouth in the morning. 90 Tablet 3 04/16/2024 Active Metoprolol Succinate ER 25 MG Oral Tablet Extended Release 24 Hour (Toprol XL)Indications:HTN, goal below 140/90,NSVT (nonsustained ventricular tachycardia) (HCC),Dyslipidemia, goal LDL below 70 Take 0.5 Tablets by mouth in the morning. 7 Tablet 04/16/2024 Active Clopidogrel Bisulfate 75 MG Oral Tablet (Plavix) Take 1 Tablet by mouth in the morning. 34 Tablet 11 04/16/2024 Active documented as of this encounter (statuses [...] mRNA, LNP-s, No Pre serve, 2-Dose Series (CFX BATTERY) 07/30/2021,11/30/2020,11/09/2020 COVID-19, MRNA-LNP, 23-24, P F, 30 MCG/0.3 mL, 12 YRS AND ABOVE, IM (ATRI - [facility]) 06/30/2023 Covid-19, Mrna, Lnp-s, Pf, B ivalent, 30 Mcg, IM, 12 yrs and above (CFX BATTERY) 06/20/2022 HEP A - Hepatitis A (Adult [...] 05/17/2024 8:00 AM EDT Office Visit Pharmacy, [facility] [address] [place] [address] [facility] [address] [place] [address] 06/01/2024 10:00 AM EDT Office Visit Cardiology, [facility] [address] [place] [address] William Snider DO [address] [place] [address] 06/02/2024 11:00 AM EDT Office Visit Gastroenterology, [facility] [address] [place] [address] Kary Perez CRNP [address] [place] [address] 07/01/2024 9:16 AM EDT Hospital Encounter OR [facility], Operating Room, [facility] - 4th Floor [address] [place] [address] Marciano Lopez MD [address] [place] [address] 07/01/2024 9:16 AM EDT - 07/01/2024 9:52 AM EDT Surgery OR [facility], Operating Room, [facility] - 4th Floor [address] [place] [phone] Marciano Lopez MD [address] [place] [address] COLONOSCOPY FLEXIBLE PROXIMAL DIAGNOSTIC 09/06/2024 11:00 AM EST Office Visit [place] [address] [facility], [place] [id number] Nisa Goodrich PA-C [address], [place] [id number] 09/08/2024 7:40 AM EST Office Visit [facility] [address] [facility], [place] [phone] Alonso Daigle MD [address] [place] [address] 09/14/2024 8:45 AM EST Office Visit Orthopaedics Spine Surgery, [facility] [place] [address] [place] [address] Kleber Batres MD [address] [place] [address] Scheduled Procedures Name Priority Associated Diagnoses Date/Ti [...] 090 05/2022, 02/09/2021, Additional history exists GFR 04/15/2025 [...] Priority Date/Time Associated Diagnosis Comments CBC Routine 04/21/2024 10:41 AM EDT Chest pain Blood in stool documented in this encounter Results * (ABNORMAL) CBC (04/21/2024 10:41 AM EDT) WBC 6.66 4.00 - 10.80 K/uL 04/21/2024 10:53 AM EDT [facility] RBC 4.25 4.50 - 5.25 M/uL 04/21/2024 10:53 AM EDT [facility] [place] [facility]10 HGB 12.3(L) 14.0 - 16.8 g/dL 04/21/2024 10:53 AM EDT [facility] [place] [facility]10 HCT 36.5(L) 40.0 - 48.4 % 04/21/2024 10:53 AM EDT [facility] [place] [facility] MCV 85.9 82.0 - 99.5 fL 04/21/2024 10:53 AM EDT [facility] [place] [facility] MCH 28.9 27.0 - 34.0 pg 04/21/2024 10:53 AM EDT [facility] [place] [facility] MCHC 33.7 32.0 - 36.0 g/dL 04/21/2024 10:53 AM EDT [facility] [place] [facility] RDW 15.1 11.5 - 15.5 % 04/21/2024 10:53 AM EDT [facility] [place] [facility]10 PLT 263 140 - 400 K/uL 04/21/2024 10:53 AM EDT [facility] [place] [facility]10 MPV 8.7 6.6 - 11.1 fL 04/21/2024 10:53 AM EDT [facility] [place] [facility]10 Blood Venous blood specimen / Unknown Venipuncture / Unknown 04/21/2024 10:41 AM EDT 04/21/2024 10:41 AM EDT Rosa Fajardo PA-C LAB BLOOD [facility] Organization Address City/State/ZIP Co de Phone Number [facility] [place] [phone] [facility] [place] [address] documented in this encounter Visit Diagnoses Diagnosis Chest pain Chest pain, unspecified Blood in stool Blood in stool documented in this encounter Advance Directives * Full Code (Latest Code Status on File) Date Activated Date Inactivated Comments 07/05/2019 10:32 AM 07/05/2019 4:23 PM This order reflects the patients wishes and were consensually agreed upon. Care Teams [employer] Relationship Specialty Start Date End Date Nisa Goodrich PA-C [address] [place] [address] PCP - General Physician Heating Element Builder 03/14/24 documented as of this encounter
--- NOTE | 2024-04-22 09:28 | Hospitalist Progress Note ---
Date of Service April 22, 2024 Assessment & Plan (1) Chest pain: (2) Blood in stool: Plan Almas Pack is a 68y/o M with PMHx of DM type II, dyslipidemia, HTN, CAD s/p PCI of the LAD using a single AMY [02/11/2024], osteoarthritis and other problems listed below who presented to the ED for evaluation secondary to chest pain and bloody diarrhea. Most recent confinement 02/09 to 02/11 here at [facility]. Presented with complaints of epigastric and chest pain radiating down both arms. EKG demonstrated normal sinus rhythm without ischemic changes. High sensitivity troponin was negative x 3. Patient subsequently underwent dobutamine stress echocardiogram which was positive for inferior wall ischemia. He also had sustained VT with dobutamine infusion. Patient was subsequently sent for diagnostic cardiac catheterization revealing 100% INTELLIGENCE OFFICER BASIC of the RCA and 80% mid LAD lesion treated with 1 AMY. Patient was ultimately placed on dual antiplatelet therapy. Chest Pain CAD s/p Stent Placement Pt was at cardiac rehab this morning, complaining of some chest pain and had to subsequently stop exercising. Notes his chest pain has significantly improved since stent placement back in January, but he is still experiencing ongoing fatigue and episodes of worsening chest pain with some associated SOB. Troponin negative, EKG without ischemic changes CXR negative Echo pending Cardiology consulted, appreciate recs Continue patient's Plavix for now ASA stopped Continue statin EKG for chest pain PRN. Continue to monitor on telemetry Hematochezia Possible GI Bleed Patient has had increased to BRBPR since he was started on dual antiplatelet therapy according to [facility] documentation. He was previously on ASA and Brilinta following his discharge in January, but was transitioned to ASA and Plavix on 04/16 during his appointment with [facility] at [facility]. Hgb was stable at that time. He had mentioned to staff at cardiac rehab that he was still experiencing rectal bleeding even after being switched from Brilinta to Plavix. Dr. Daniel from [facility] recommended the patient be admitted to the hospital for further workup of his GI bleeding. Hgb down trended from 13.1 on 04/15 to 11.7 on admission in the ED CT abd/pelvis noting colitis Follow H/H PPI GI consulted, appreciate recs -IV PPI -stool studies, c diff -scope after cardiology workup/clearance Bilateral Calf Pain: Patient complaining of bilateral calf pain on admission Venous duplex US of bilateral lower extremities with no DVT DM Type II: 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 BSG checks ACHS, Hgb A1c in AM - follow. HTN: Stable, continue home medications. Dyslipidemia: Stable, continue home medications. DVT Prophylaxis: SCDs - Chemical DVT prophylaxis contraindicated secondary to GI bleeding. Code Status: FULL CODE PCP: Alonso Daigle MD Disposition: PT/OT for further recs once medically stable Admission and Anticipated Discharge Date Admission Date: April 21, 2024 Subjective pt was seen in AM with at bedside. States no BM since admission. feels dizzy when he stands up and goes to the bathroom. Review of Systems Review of Systems: All systems reviewed & are unremarkable except as noted in Subjective Physical Exam Physical Exam: General: Alert, oriented. No acute distress Skin: No noted rashes or bruises Psych: Appropriate mood and affect HEENT: NC/AT CV: RRR Resp: Breath sounds clear bilaterally, no increased effort of breathing Abdomen: Soft, tender R abdomen Extremities: edema in lower extremities bilaterally. Results & Data Results & Data Vital Signs (Past 12 Hours) Vital Signs Temp Pulse Pulse Resp BP Pulse Ox O2 Del Method 04/22/24 07:08 36.8 C 77 16 125/68 93 Room Air 04/22/24 03:48 36.4 C L 64 16 134/66 95 Room Air 04/21/24 22:10 Room Air 04/21/24 22:10 36.6 C 71 17 151/78 H 96 Room Air Diagnostic Findings Chest X-Ray 04/21/24 14:37 XR chest 1V portable HISTORY: chest pain COMPARISON: Chest 02/10/2024. FINDINGS: No pneumothorax. No pleural effusions. A few bibasilar linear densities favor subsegmental atelectasis or scarring. No new focal lung consolidations to suggest a pneumonia. No evidence for pulmonary edema. The heart is mildly enlarged. Stable prominence of the central pulmonary arteries. Calcifications within the aortic knob. No acute fractures. IMPRESSION: No acute process. ACT 112: Negative or not required by law. Electronically signed by: Kulwant Martinez M.D. 04/21/2024 3:52 PM Venous Doppler Study 04/21/24 17:54 Exam(s): US VENOUS BILATERAL LOWER EXTREMITIES EXAM: US Duplex Bilateral Lower Extremities Veins CLINICAL HISTORY: Reason for exam: B/l calf tenderness. TECHNIQUE: Real-time duplex ultrasound scan of the bilateral lower extremity veins integrating B-mode two-dimensional vascular structure, Doppler spectral analysis, color flow Doppler imaging and compression. COMPARISON: No relevant prior studies available. FINDINGS: Right deep veins: Unremarkable. The visualized deep veins of the right lower extremity are compressible with color flow. No visualized thrombus. Right superficial veins: Unremarkable. Left deep veins: Unremarkable. The visualized deep veins of the left lower extremity are compressible with color flow. No visualized thrombus. Left superficial veins: Unremarkable. Soft tissues: No acute findings. IMPRESSION: No DVT within the bilateral lower extremities. Electronically signed by: Ketan Torres MD 04/21/24 20:13 PM Abdomen/Pelvis CT 04/21/24 18:19 Exam(s): CT ABDOMEN + PELVIS Without Contrast EXAM: CT Abdomen and Pelvis Without Intravenous Contrast CLINICAL HISTORY: Reason for exam: Rectal bleeding, abd pain. TECHNIQUE: Axial computed tomography images of the abdomen and pelvis without intravenous contrast. CTDI is 27.58 mGy and DLP is 1381.06 mGy-cm. Automated exposure control was utilized for the study. A dose lowering technique was utilized adhering to the principles of ALARA. COMPARISON: 08/01/2023 FINDINGS: ABDOMEN: Liver: Unremarkable. Gallbladder and bile ducts: Cholelithiasis without acute cholecystitis. Pancreas: Unremarkable. Spleen: Unremarkable. Adrenals: Unremarkable. Kidneys and ureters: Unremarkable. No obstructing stones. No hydronephrosis. Stomach and bowel: Mild colonic mucosal thickening consistent with mild nonspecific colitis. PELVIS: Appendix: No findings to suggest acute appendicitis. Bladder: Unremarkable. Reproductive: Unremarkable as visualized. ABDOMEN and PELVIS: Intraperitoneal space: Unremarkable. No free air. No significant fluid collection. Bones/joints: Degenerative changes in the lumbar spine. Soft tissues: Unremarkable. Vasculature: Aortobiiliac atherosclerotic calcifications. Lymph nodes: Unremarkable. IMPRESSION: Mild colonic mucosal thickening consistent with mild nonspecific colitis. Electronically signed by: Ketan Torres MD 04/21/24 19:31 PM (1) Chest pain Chest pain type: unspecified Qualified Code(s): R07.9 - Chest pain, unspecified
[2024-04-22] MEDS: MONTELUKAST SODIUM 10 MG TABLET PO SCH (09:59)
[2024-04-22] MEDS: OMEGA-3 (PURIFIED FISH OIL) 1 GM CAP PO SCH (09:59)
--- NOTE | 2024-04-22 10:08 | Gastrointestinal Consultation ---
Date of Consultation April 22, 2024 Assessment & Plan (1) Blood in stool: (2) Diarrhea: Plan Patient is a 68 year old male with a past medical history of DM type II, dyslipidemia, HTN, CAD s/p PCI of the LAD using a single AMY [02/11/2024], osteoarthritis and other problems listed below who presented to the ED for evaluation secondary to chest pain and bloody diarrhea. He has had blood diarrhea with abdominal discomfort since he had stent placement in January 2024. He was placed on Brilinta and ASA at that time and his Brilinta was eventually transitioned to plavix. He is also having ongoing chest pain and SOB and was noted to have to stop cardiac rehab yesterday secondary to symptoms. No further bowel movement since admission. - check stool studies to rule out infectious causes. - will await cardiac input given ongoing cardiac symptoms. - likely will need eventual scope, but will await above first. - follow hgb/hct, transfuse as needed. - can transition protonix to 40mg IV BID. Do not suspect upper GI bleed at this time. patient denies melena and normal BUN/creatinine. Supervising Physician Co-Signing Physician Notes I personally saw and examined the patient. I have reviewed the chart and agree with the documentation provided by the CARCASS TRIMMER including discussion about the assessment, treatment and plan. Briefly, 68 year old male with a past medical history of DM type II, dyslipidemia, HTN, CAD s/p PCI of the LAD using a single AMY [02/11/2024], osteoarthritis who presented to the ED for evaluation of chest pain and bloody diarrhea. Most recent he was admitted from 02/10/24 to 02/12/24 here at [facility]. At that time, he had presented with complaints of epigastric and chest pain radiating down both arms. Weent diagnostic cardiac catheterization revealing 100% DETAIL DRAFTER of the RCA and 80% mid LAD lesion treated with 1 AMY. Patient was ultimately placed on dual antiplatelet therapy with brillinta and ASA, which was to be continued for a minimum of 6 months s/p percutaneous intervention. Since discharge,+ GERD persistent with multiple tums and bloody diarrhea with urgency and clots. CT with non-specific colitis. At this point, needs 2b3A and will have to do EGD and colon on meds tomorrow. Explained will be limited only to surface biopsies. He did have a colonoscopy in 2018 which was normal. DDX: gastritis, esophagitis, ulcer, IBD given bloody diarrhea with urgency and ischemia. History of Present Illness Reason for Consultation: GIB Requesting Physician: Brenna LAKHANI Attending Physician: Gladis Jorgensen MD History of Present Illness Patient is a 68 year old male with a past medical history of DM type II, dyslipidemia, HTN, CAD s/p PCI of the LAD using a single AMY [02/11/2024], osteoarthritis who presented to the ED for evaluation of chest pain and bloody diarrhea. Most recent he was admitted from 02/10/24 to 02/12/24 here at [facility]. At that time, he had presented with complaints of epigastric and chest pain radiating down both arms. EKG demonstrated normal sinus rhythm without ischemic changes. High sensitivity troponin was negative x 3. Patient subsequently underwent dobutamine stress echocardiogram which was positive for inferior wall ischemia. He also had sustained VT with dobutamine infusion. Patient was subsequently sent for diagnostic cardiac catheterization revealing 100% DETAIL DRAFTER of the RCA and 80% mid LAD lesion treated with 1 AMY. Patient was ultimately placed on dual antiplatelet therapy with brillinta and ASA, which was to be continued for a minimum of 6 months s/p percutaneous intervention. Since his cardiac procedure, the patient has had diarrhea, abdominal discomfort, and rectal bleeding. he reports 4-6 bowel movements daily with nocturnal symptoms. no melena. He tells me that he was transition to ASA and Plavix on 04/16 during his appointment with [facility] at [facility] given his symptoms but has had ongoing issues. Patient has had ongoing chest pain since his procedure in January, though notes his chest pain has significantly improved since stent placement back in January, but he is still experiencing ongoing fatigue and episodes of chest pain with some associated shortness of breath. He was at cardiac rehab yesterday morning and was complaining of some chest pain and had to subsequently stop exercising. Given his symptoms, it was recommended he come to the hospital for admission and further work up. Upon evaluation, he had a CT showing mild colonic mucosal thickening consistent with nonspecific colitis. His last colonoscopy was done through [facility] in 2018 and was unremarkable. he does not believe he has ever had any findings on colonoscopy. Since admission, he tells me that he has not moved his bowels. Patient denies any current issues with nausea, vomiting, dysphagia, heartburn, unintentional weight loss, or melena. Hgb 04/21/24 went from 11.7 to 11.8 to 12.5 hgb 04/22/24 11.6 During hospitalization in January his hgb ranged from 11.6 to 13.2. Allergies Allergy/AdvReac Type Severity Reaction Status Date / Time No Known Allergies Allergy Unknown Verified 04/21/24 16:21 Home Medications Medication Instructions Recorded Confirmed Type aspirin 81 mg tablet,delayed 81 mg PO QDD 08/13/18 04/21/24 History release (Nga Low Dose Aspirin) atorvastatin 80 mg tablet 80 mg PO HS 08/13/18 04/21/24 History fexofenadine 180 mg tablet 180 mg PO QDD 08/13/18 04/21/24 History fluticasone propionate 50 2 spray intranasal QAM 08/13/18 04/21/24 History mcg/actuation nasal spray,suspension (Flonase Allergy Relief) lisinopril 20 mg tablet 20 mg PO QPM 08/13/18 04/21/24 History magnesium 250 mg tablet 250 mg PO QDD 08/13/18 04/21/24 History multivitamin 1 tab PO QAM 08/13/18 04/21/24 History omega 6-nkp-ryy-fish oil 1,000 mg 1 cap PO DAILY 08/13/18 04/21/24 History (120 mg-180 mg) capsule (Fish Oil) potassium gluconate 550 mg (90 mg) 550 mg PO QDD 08/13/18 04/21/24 History tablet diclofenac sodium 1 % topical gel 1 g topical QID 02/10/24 04/21/24 History (Voltaren Arthritis Pain) esomeprazole magnesium 20 mg 20 mg PO DAILYBB 02/10/24 04/21/24 History capsule,delayed release (Nexium) semaglutide 7 mg tablet (Rybelsus) 7 mg PO QAM 02/10/24 04/21/24 History vit C 250 mg-vit E 90 mg-zinc 40 1 tab PO BID 02/10/24 04/21/24 History mg-copper 1 pr-[id number]-azszfb capsule (PreserVision AREDS-2) gabapentin 100 mg capsule 100 mg PO HS #30 caps 02/12/24 04/21/24 Rx metoprolol succinate 25 mg 12.5 mg (1/2 x 25 mg) PO QAM #30 02/12/24 04/21/24 Rx tablet,extended release 24 hr tabs clopidogrel 75 mg tablet 75 mg PO QAM 04/21/24 04/21/24 History ezetimibe 10 mg tablet 10 mg PO QAM 04/21/24 04/21/24 History isosorbide mononitrate 30 mg 15 mg PO QAM 04/21/24 04/21/24 History tablet,extended release 24 hr metformin 1,000 mg tablet 1,000 mg PO BIDWMEAL 04/21/24 04/21/24 History montelukast 10 mg tablet 10 mg PO QAM 04/21/24 04/21/24 History Patient History Medical History (Updated 04/22/24 @ 11:44 by Rosa Fajardo PA-C) Finger avulsion middle right finger and reattached Non-insulin dependent type 2 diabetes mellitus Obesity (BMI 35.0-39.9 without comorbidity) Diabetes Seasonal allergies High cholesterol Surgical History Hx of colonoscopy Hx of hernia repair as child Social History Smoking Status: Former smoker Tobacco Type: Cigarettes Second Hand Exposure: No; Do You Dip or Chew Tobacco: No; Hx Alcohol Use: Yes Alcohol type: beer Hx Substance Use: No Preferred Language: Indonesian Communication Ability: Effective Small Animal Caretaker Required: No Beliefs That Will Affect Care: None Current Living Situation: Spouse Current Living Situation Comment: lives at home with Lindy 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 Psychiatric: Orientation: alert and oriented x 3 Affect: euthymic affect Results & Data Vital Signs (Past 12 Hours) Vital Signs Temp Pulse Pulse Resp BP Pulse Ox O2 Del Method 04/22/24 07:08 98.2 F 77 16 125/68 93 Room Air 04/22/24 03:48 97.5 F L 64 16 134/66 95 Room Air 04/21/24 22:10 Room Air 04/21/24 22:10 97.9 F 71 17 151/78 H 96 Room Air Coding Level of Care Code 54603 INT INP/OBS CARE 2/55MIN Diagnoses Blood in stool K92.1 Diarrhea R19.7
[2024-04-22] MEDS: MAGNESIUM SULFATE / D5W 1 GM/100 ML BAG IV SCH (10:10)
--- NOTE | 2024-04-22 11:19 | Cardiology Consultation ---
Date of Consultation April 22, 2024 Assessment & Plan (1) GI bleeding: (2) Status post insertion of drug-eluting stent into left anterior descending (LAD) artery: (3) Diarrhea: (4) CAD (coronary artery disease), [place] coronary artery: Plan Patient admitted after several weeks of progressive GI bleeding associated with abdominal pain and diarrhea and epigastric pain. Hbg trending down slightly over the last few weeks 13.1, now 11.6 associated with worsening fatigue and dyspnea Outpatient GI evaluation was arranged, but due to ongoing symptoms, ER advised. Patient with recent AMY to the LAD and found to have RCA occlusion with collaterals in January 2024. Med management recommended for RCA. He was started on appropriate medical therapies including ASA, Brilinta, metoprolol, statin. Patient also has had intermittent chest pain/dyspnea since cardiac catheterizati on. Symptoms never fully resolved. Continued to take TUMS frequently. Has not used SL nitro. Isosorbide was initiated at 15 mg and then increased to 30 mg without significant improvement. Due to GI bleeding, Brilinta was stopped and transitioned to Plavix. Bleeding continued. He then had chest pain with worsening fatigue/dyspnea at cardiac rehab yesterday, so came to the ER. Since admission, EKG was without ischemic changes. HS troponin negative x4. Echocardiogram pending. Patient needs to continue antiplatelet therapy with Plavix given AMY to the LAD on 02/23/24. Aspirin currently on hold. Would recommend GI evaluation given his GI bleed, abdominal pain and intermittent epigastric pain/burning with frequent TUMs use. Would consider upper and lower endoscopies given severity of symptoms. Patient acceptable risk to proceed with GI procedures at this time. Case discussed with Dr. Snider I spent a total of 60 minutes on the date of service in preparation, delivery, and documentation of the care provided to this patient, excluding any time spent in the performance of separately billed services. Rosa Fajardo PA-C Department of Cardiology, [facility] This chart was completed in part utilizing Speech Voice Recognition Software. Grammatical errors, random word insertions, pronoun errors, and incomplete sentences are an occasional consequence of this system due to software limitations, ambient noise, and hardware issues. Any formal questions or concerns about the content, text, or information contained within the body of this dictation should be directly addressed to the provider for clarification. Supervising Physician Co-Signing Physician Notes I have personally performed a history and physical examination on the patient. I have reviewed the advance practitioner's documentation, and I agree with, and take responsibility for the plan of care. 68-year-old male admitted secondary to bright red blood per rectum. Chronic chest discomfort noted without evidence of acute coronary syndrome. Repeat echocardiogram with stable findings, preserved LV systolic function. Continue clopidogrel due to recent drug-eluting stent implantation. Aspirin will remain on hold at this time. Patient may proceed with endoscopy in AM. Cardiology will continue to follow during hospitalization. I spent a total of 30 minutes on the date of service in preparation, delivery, and documentation of the care provided to this patient, excluding any time spent in the performance of separately billed services. William Snider DO, [facility] History of Present Illness Reason for Consultation: CP; GI bleed; CAD s/p recent AMY to the LAD Requesting Physician: [facility] Hospitalist Attending Physician: Dr. Snider History of Present Illness Patient is a 68-year-old male known to [facility] cardiology, Dr. Snider/Nnamdi Fajardo, PAC. History includes: 1. CAD S/P AMY to the LAD on 02/11/24. 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 Med management recommended for RCA occlusion. 2. Hypertension 3. Dyslipidemia 4. DM 5. Cervical spondylosis - future spinal surgery? 6. Recent GI bleeding Patient recently evaluated at the outpatient office on several occasions for complaints of intermittent chest pain, shortness of breath and fatigue. He also reported worsening rectal bleeding/hematochezia over the last month associated with significant diarrhea and frequent BM and abdominal pain. In regards to his fatigue/dyspnea/dizziness/CP as an outpatient, metoprolol was reduced and isosorbide initiated initially at 15 mg daily then 30 mg daily without significant improvement. Patient had been taking TUMS leading up to AMY. Shortly after he reports not needing TUMS, and then over the last few weeks, his symptoms returned. He notes epigastric burning sensation. Comes and goes without relation to exertion. He has not tried SL nitro. Due to ongoing bleeding, CBC was rechecked and revealed stable findings as an outpatient around 13.1. Brilinta was transitioned to Plavix last week. yesterday patient reported to cardiac rehab staff about worsening fatigue/ dyspnea and he had an episode of chest pain while exercising. Symptoms resolved spontaneously. Cardiology was contacted and he was sent for Repeat CBC which showed mild decline in HBG to 12.3. GI was contacted due to ongoing rectal bleeding, and they recommended ER for further evaluation/workup. Upon arrival to the ER, patient reported he was chest pain free. HS troponin negative x4. EKG demonstrated NSR, without ischemic changes. echocardiogram pending. On admission, ASA held. Plavix to be continued given recent AMY. GI consulted. At time of consult, patient resting in bed comfortably. Ongoing abdominal pain and tenderness noted. No BM since admission. He reports ongoing SOB with minimal activity and fatigue. Mild chest pressure noted this morning lasting 2/10, but admits he is also anxious as well. Allergies Allergy/AdvReac Type Severity Reaction Status Date / Time No Known Allergies Allergy Unknown Verified 04/21/24 16:21 Home Medications Medication Instructions Recorded Confirmed Type aspirin 81 mg tablet,delayed 81 mg PO QDD 08/13/18 04/21/24 History release (Nga Low Dose Aspirin) atorvastatin 80 mg tablet 80 mg PO HS 08/13/18 04/21/24 History fexofenadine 180 mg tablet 180 mg PO QDD 08/13/18 04/21/24 History fluticasone propionate 50 2 spray intranasal QAM 08/13/18 04/21/24 History mcg/actuation nasal spray,suspension (Flonase Allergy Relief) lisinopril 20 mg tablet 20 mg PO QPM 08/13/18 04/21/24 History magnesium 250 mg tablet 250 mg PO QDD 08/13/18 04/21/24 History multivitamin 1 tab PO QAM 08/13/18 04/21/24 History omega 5-tss-wrp-fish oil 1,000 mg 1 cap PO DAILY 08/13/18 04/21/24 History (120 mg-180 mg) capsule (Fish Oil) potassium gluconate 550 mg (90 mg) 550 mg PO QDD 08/13/18 04/21/24 History tablet diclofenac sodium 1 % topical gel 1 g topical QID 02/10/24 04/21/24 History (Voltaren Arthritis Pain) esomeprazole magnesium 20 mg 20 mg PO DAILYBB 02/10/24 04/21/24 History capsule,delayed release (Nexium) semaglutide 7 mg tablet (Rybelsus) 7 mg PO QAM 02/10/24 04/21/24 History vit C 250 mg-vit E 90 mg-zinc 40 1 tab PO BID 02/10/24 04/21/24 History mg-copper 1 [id number]-[id number] capsule (PreserVision AREDS-2) gabapentin 100 mg capsule 100 mg PO HS #30 caps 02/12/24 04/21/24 Rx metoprolol succinate 25 mg 12.5 mg (1/2 x 25 mg) PO QAM #30 02/12/24 04/21/24 Rx tablet,extended release 24 hr tabs clopidogrel 75 mg tablet 75 mg PO QAM 04/21/24 04/21/24 History ezetimibe 10 mg tablet 10 mg PO QAM 04/21/24 04/21/24 History isosorbide mononitrate 30 mg 15 mg PO QAM 04/21/24 04/21/24 History tablet,extended release 24 hr metformin 1,000 mg tablet 1,000 mg PO BIDWMEAL 04/21/24 04/21/24 History montelukast 10 mg tablet 10 mg PO QAM 04/21/24 04/21/24 History Patient History Medical History Finger avulsion middle right finger and reattached Non-insulin dependent type 2 diabetes mellitus Obesity (BMI 35.0-39.9 without comorbidity) Diabetes Seasonal allergies High cholesterol Surgical History Hx of colonoscopy Hx of hernia repair as child Social History Smoking Status: Former smoker Tobacco Type: Cigarettes Second Hand Exposure: No; Do You Dip or Chew Tobacco: No; Hx Alcohol Use: Yes Alcohol type: beer Hx Substance Use: No Preferred Language: [place]an Communication Ability: Effective Floor Grinder Required: No Beliefs That Will Affect Care: None Current Living Situation: Spouse Current Living Situation Comment: lives at home with Lindy 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 Feels Safe at Home: Yes and No Is there a partner from a previous relationship who is making you feel unsafe now?: No Assistive Devices: Glasses Review of Systems Review of Systems: All systems reviewed & are unremarkable except as noted in HPI & below Physical Exam Constitutional: WD/WN, vitals as above + obese; no acute distress Neck: trachea midline, no thyromegaly Respiratory: normal respiratory effort Auscultation: lungs clear to auscultation bilaterally Cardiovascular: Rate/Rhythm: regular rate and regular rhythm Palpation: normal PMI Vessels: no JVD Extremities: + calf tenderness; no edema Gastrointestinal (Abdomen): Inspection/Auscultation: abdomen normal to inspection and normal bowel sounds Percussion/Palpation: + abdomen tender Skin: no rashes, warm and dry Neurologic: PERRL, EOMI, accommodation nl, no face palsy, no dysarthria Results & Data Vital Signs (Past 12 Hours) Vital Signs Temp Pulse Pulse Resp BP Pulse Ox O2 Del Method 04/22/24 07:08 36.8 C 77 16 125/68 93 Room Air 04/22/24 03:48 36.4 C L 64 16 134/66 95 Room Air Laboratory Results Cardiac Enzymes 04/21/24 04/21/24 04/21/24 Range/Units 14:44 18:25 22:49 AST 16 (13-39) U/L Troponin I High Sens 3.7 4.2 4.7 (0-20) pg/ml 04/22/24 Range/Units 06:55 AST (13-39) U/L Troponin I High Sens 3.7 (0-20) pg/ml Coagulation 04/21/24 Range/Units 14:44 PT 11.3 (9.0-12.0) Seconds APTT 27 (21-31) Seconds CBC 04/21/24 04/21/24 04/21/24 Range/Units 14:44 20:19 22:49 WBC 6.18 6.99 (4.8-10.8) K/ul RBC 4.12 L 4.40 L (4.70-6.10) M/uL Hgb 11.7 L 11.8 L 12.5 L (14.0-18.0) g/dl Hct 34.6 L 34.4 L 37.1 L (42.0-52.0) % Plt Count 253 269 (130-400) K/uL Neut # (Auto) 3.50 (1.40-6.50) K/uL Lymph # (Auto) 1.63 (1.20-3.40) K/uL Terry # (Auto) 0.81 H (0.11-0.59) K/uL Eos # (Auto) 0.16 (0.00-0.50) K/uL Baso # (Auto) 0.05 (0.00-0.20) K/uL 04/22/24 Range/Units 06:55 WBC (4.8-10.8) K/ul RBC (4.70-6.10) M/uL Hgb 11.6 L (14.0-18.0) g/dl Hct 35.2 L (42.0-52.0) % Plt Count (130-400) K/uL Neut # (Auto) (1.40-6.50) K/uL Lymph # (Auto) (1.20-3.40) K/uL Terry # (Auto) (0.11-0.59) K/uL Eos # (Auto) (0.00-0.50) K/uL Baso # (Auto) (0.00-0.20) K/uL Comprehensive Metabolic Panel 04/21/24 04/22/24 Range/Units 14:44 06:55 Sodium 138 139 (136-145) mmol/L Potassium 4.4 4.0 (3.5-5.1) mmol/L Chloride 106 105 (98-107) mmol/L Carbon Dioxide 28 28 (21-32) mmol/L BUN 20 17 (6-23) mg/dl Creatinine 1.13 1.04 (0.6-1.4) mg/dl Glucose 159 H 94 (70-99(Fasting)) mg/dl Calcium 8.7 8.5 L (8.6-10.3) mg/dl AST 16 (13-39) U/L ALT 19 (7-52) U/L Alkaline Phosphatase 70 (34-104) U/L Total Protein 6.2 (6.0-8.3) gm/dl Albumin 4.0 (3.4-5.0) gm/dl Intake and Output 04/21/24 04/22/24 04/22/24 22:59 06:59 14:59 Intake Total 720 / 807.667 87.667 / 807.667 101.667 / 101.667 Output Total 200 / 200 Balance 720 / 607.667 -112.333 / 607.667 101.667 / 101.667 Intake: IV 720 / 807.667 87.667 / 807.667 101.667 / 101.667 Magnesium Sulfate / D5w 1 gm In 1.667 / 1.667 100 ml @ 50 mls/hr IV Q2H [facility] Rx#:[id number] PANTOprazole 40 mg In Dextrose 100 / 187.667 87.667 / 187.667 100 / 100 5% Mini-B 100 ml @ 8 MG/HR 20 mls/hr IV Q5H [facility] Rx#:[id number] PANTOprazole 80 mg In Dextrose 120 / 120 5% 100 ml @ 480 mls/hr IV NOW ONE Rx#:[id number] Sodium Chloride 0.9% 500 ml @ 500 / 500 999 mls/hr IV .Q31M [facility] Rx#: [id number] Output: Urine 200 / 200 Other: Weight 112 kg 111.2 kg Weight Measurement Method Standing Scale Built in [facility] Diagnostic Findings Telemetry reviewed: NSR in the 70'a EKGs reviewed dated 04/21/24 at 18:16 NSR with 1st degree AV block LAFB No change from previous EKG reviewed from 04/21/24 at 13:44 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 Echocardiogram pending Laboratory Results WBC 6.99 K/ul (4.8-10.8) 04/21/24 22:49 RBC 4.40 M/uL (4.70-6.10) L 04/21/24 22:49 Hgb 11.6 g/dl (14.0-18.0) L 04/22/24 06:55 Hct 35.2 % (42.0-52.0) L 04/22/24 06:55 MCV 84.3 fL (80.0-100.0) 04/21/24 22:49 MCH 28.4 pg (25.0-34.0) 04/21/24 22:49 MCHC 33.7 g/dL (32.0-36.0) 04/21/24 22:49 RDW Std Deviation 45.3 fL (36.4-46.3) 04/21/24 22:49 RDW Coeff of Dragan 14.9 % (11.5-14.5) H 08/21/24 22:49 Plt Count 269 K/uL (130-400) 04/21/24 22:49 MPV 9.3 fL (9.4-12.4) L 04/21/24 22:49 Immature Gran % (Auto) 0.5 % 04/21/24 14:44 Neut % (Auto) 56.6 % 04/21/24 14:44 Lymph % (Auto) 26.4 % 04/21/24 14:44 Terry % (Auto) 13.1 % 04/21/24 14:44 Eos % (Auto) 2.6 % 04/21/24 14:44 Baso % (Auto) 0.8 % 04/21/24 14:44 Neut # (Auto) 3.50 K/uL (1.40-6.50) 04/21/24 14:44 Lymph # (Auto) 1.63 K/uL (1.20-3.40) 04/21/24 14:44 Terry # (Auto) 0.81 K/uL (0.11-0.59) H 04/21/24 14:44 Eos # (Auto) 0.16 K/uL (0.00-0.50) 04/21/24 14:44 Baso # (Auto) 0.05 K/uL (0.00-0.20) 04/21/24 14:44 Immature Gran # (Auto) 0.03 K/uL (0.01-0.20) 04/21/24 14:44 PT 11.3 Seconds (9.0-12.0) 04/21/24 14:44 INR 1.0 (0.9-1.1) 04/21/24 14:44 APTT 27 Seconds (21-31) 04/21/24 14:44 PTT Ratio 1.0 04/21/24 14:44 Sodium 139 mmol/L (136-145) 04/22/24 06:55 Potassium 4.0 mmol/L (3.5-5.1) 04/22/24 06:55 Chloride 105 mmol/L (98-107) 04/22/24 06:55 Carbon Dioxide 28 mmol/L (21-32) 04/22/24 06:55 Anion Gap 6 (3-11) 04/22/24 06:55 BUN 17 mg/dl (6-23) 04/22/24 06:55 Creatinine 1.04 mg/dl (0.6-1.4) 04/22/24 06:55 Est Cr Clr Drug Dosing 83.4 ml/min 04/22/24 06:55 Est GFR ( Amer) 85.7 ml/min 04/22/24 06:55 Est GFR (Non-Af Amer) 73.9 ml/min 04/22/24 06:55 BUN/Creatinine Ratio 16.3 (10-20) 04/22/24 06:55 Glucose 94 mg/dl (70-99(Fasting)) 04/22/24 06:55 POC Glucose 101 mg/dl (70-99) H 04/22/24 08:24 Estimat Average Glucose 140 mg/dl 04/22/24 06:55 Hemoglobin A1c 6.5 % (4.5-5.6) H 04/22/24 06:55 Calcium 8.5 mg/dl (8.6-10.3) L 04/22/24 06:55 Phosphorus 3.2 mg/dl (2.5-4.9) 04/22/24 06:55 Magnesium 1.6 mg/dl (1.7-2.4) L 04/22/24 06:55 Total Bilirubin 0.7 mg/dl (0.2-1.0) 04/21/24 14:44 AST 16 U/L (13-39) 04/21/24 14:44 ALT 19 U/L (7-52) 04/21/24 14:44 Alkaline Phosphatase 70 U/L (34-104) 04/21/24 14:44 Troponin I High Sens 3.7 pg/ml (0-20) 04/22/24 06:55 Total Protein 6.2 gm/dl (6.0-8.3) 04/21/24 14:44 Albumin 4.0 gm/dl (3.4-5.0) 04/21/24 14:44 Globulin 2.2 gm/dl (2.5-4.0) L 04/21/24 14:44 Albumin/Globulin Ratio 1.8 (0.9-2) 04/21/24 14:44 Impressions Chest X-Ray 04/21/24 14:37 FINDINGS: No pneumothorax. No pleural effusions. A few bibasilar linear densities favor subsegmental atelectasis or scarring. No new focal lung consolidations to suggest a pneumonia. No evidence for pulmonary edema. The heart is mildly enlarged. Stable prominence of the central pulmonary arteries. Calcifications within the aortic knob. No acute fractures. IMPRESSION: No acute process. Venous Doppler Study 04/21/24 17:54 IMPRESSION: No DVT within the bilateral lower extremities. Abdomen/Pelvis CT 04/21/24 18:19 IMPRESSION: Mild colonic mucosal thickening consistent with mild nonspecific colitis. Medications Administered Current Inpatient Medications Acetaminophen (Acetaminophen 325 Mg Tab) 650 mg PO Q4H PRN PRN Reason: pain/fever Stop: 05/21/24 18:38 Atorvastatin Calcium (Atorvastatin 40 Mg Tab) 80 mg PO HS KAREN Stop: 05/21/24 20:59 Last Admin: 04/21/24 20:43 Dose: 80 mg Clopidogrel Bisulfate (Clopidogrel Bisulfate 75 Mg Tab) 75 mg PO QAM KAREN Stop: 05/22/24 08:59 Last Admin: 04/22/24 08:15 Dose: 75 mg Dextrose (Dextrose 50% 50 Ml Syringe) 25 - 50 ml IV UD PRN; Protocol PRN Reason: Hypoglycemia Protocol Stop: 05/21/24 18:38 Ezetimibe (Ezetimibe 10 Mg Tab) 10 mg PO QAM KAREN Stop: 05/22/24 08:59 Last Admin: 04/22/24 08:15 Dose: 10 mg Fexofenadine HCl (Fexofenadine Hcl 180 Mg Tab) 180 mg PO QDD KAREN Stop: 05/22/24 16:29 Fish Oil ([place]-3 (Purified Fish Oil) 1 Gm Cap) 1 gm PO DAILY KAREN Stop: 05/22/24 08:59 Last Admin: 04/22/24 09:59 Dose: 1 gm Fluticasone Propionate (Fluticasone Propionate Na Spr 16 Gm Btl) 2 sprays NA QAM KAREN Stop: 05/22/24 08:59 Last Admin: 04/22/24 08:16 Dose: 2 sprays Gabapentin (Gabapentin 100 Mg Cap) 100 mg PO HS KAREN Stop: 05/21/24 20:59 Last Admin: 04/21/24 20:43 Dose: 100 mg Glucagon (Glucagon For Inj 1 Mg Vial) 1 mg SQ UD PRN; Protocol PRN Reason: Hypoglycemia Protocol Stop: 05/21/24 18:38 Glucose (Glucose 40% Gel 15 Gm Tube) 15 - 30 gm PO UD PRN; Protocol PRN Reason: Hypoglycemia Protocol Stop: 05/21/24 18:38 Glucose (Glucose 10 Tab/Tube) 4 - 8 tab PO UD PRN; Protocol PRN Reason: Hypoglycemia Treatment Stop: 05/21/24 18:38 Hydromorphone HCl (Hydromorphone Inj 1 Mg/Ml Syringe) 1 mg IV Q4H PRN PRN Reason: Pain Stop: 05/05/24 22:51 Last Admin: 04/21/24 23:11 Dose: 1 mg Pantoprazole Sodium 40 mg/ (Dextrose) 100 mls @ 20 mls/hr IV Q5H KAREN Stop: 05/21/24 16:29 Last Admin: 04/22/24 09:59 Dose: 8 mg/hr, 20 mls/hr Magnesium Sulfate/Dextrose (Magnesium Sulfate / D5w) 1 gm in 100 mls @ 50 mls/hr IV Q2H KAREN Stop: 04/22/24 13:44 Last Infusion: 04/22/24 10:12 Dose: 0 mls/hr Insulin Aspart (Insulin Aspart Per Unit Charge) 0 units SC ACHS KAREN Stop: 05/21/24 20:59 Last Admin: 04/22/24 08:28 Dose: Not Given Isosorbide Mononitrate (Isosorbide Terry Extended Rel 30 Mg Tabcr) 15 mg PO QAM KAREN Stop: 05/22/24 08:59 Last Admin: 04/22/24 08:16 Dose: 15 mg Lisinopril (Lisinopril 20 Mg Tab) 20 mg PO QPM KAREN Stop: 05/21/24 20:59 Last Admin: 04/21/24 20:43 Dose: 20 mg Melatonin (Melatonin 3 Mg Tab) 6 mg PO HS PRN PRN Reason: Sleep Stop: 05/22/24 02:44 Last Admin: 04/22/24 02:52 Dose: 6 mg Metoprolol Succinate (Metoprolol Succ 25mg Ext Rel Tab) 12.5 mg PO QAM KAREN Stop: 05/22/24 08:59 Last Admin: 04/22/24 08:16 Dose: 12.5 mg Miscellaneous (Carbohydrates For Hypoglycemia ) 15 - 30 gm PO UD PRN PRN Reason: Hypoglycemia Protocol Stop: 05/21/24 18:38 Montelukast Sodium (Montelukast Sodium 10 Mg Tablet) 10 mg PO QAM [facility] Stop: 05/22/24 08:59 Last Admin: 04/22/24 09:59 Dose: 10 mg Multivitamins (Multivitamin Tab) 1 tab PO QAM [facility] Stop: 05/22/24 08:59 Last Admin: 04/22/24 08:17 Dose: 1 tab Ondansetron HCl (Ondansetron Inj 2 Mg/Ml 2 Ml Vial) 4 mg IV Q6H PRN PRN Reason: Nausea Stop: 05/21/24 18:38 Oxycodone HCl (Oxycodone Hcl Ir 5 Mg Tab (Immediate Release)) 5 - 10 mg PO QID PRN PRN Reason: Pain Stop: 05/05/24 22:51 Last Admin: 04/22/24 10:19 Dose: 10 mg Polyethylene Glycol (Polyethylene (Miralax) 17 Gm Pack) 17 gm PO DAILY PRN PRN Reason: Constipation Stop: 05/21/24 18:38 (1) GI bleeding GI bleed type/associated pathology: unspecified gastrointestinal hemorrhage type Qualified Code(s): K92.2 - Gastrointestinal hemorrhage, unspecified (3) Diarrhea Diarrhea type: unspecified type Qualified Code(s): R19.7 - Diarrhea, unspecified (4) CAD (coronary artery disease), [place] coronary artery Associated angina: with stable angina [place] vs. transplanted heart: [place] heart Qualified Code(s): I25.118 - Atherosclerotic heart disease of [place] coronary artery with other forms of angina pectoris
[2024-04-22] MEDS: ISOSORBIDE MONO EXTENDED REL 30 MG TABCR PO ONE (12:19)
[2024-04-22] MEDS: LAVAGE SOLUTION 4000ML PO SCH (16:43)
[2024-04-22] MEDS: FEXOFENADINE HCL 180 MG TAB PO SCH (21:27)
[2024-04-22] MEDS ORDERED: Nursing to Pharmacy Communication SCH (21:45)
[2024-04-22 22:54] LABS: Adenovirus F 40/41 PCR Not Detected (NotDetected); Astrovirus PCR Not Detected (NotDetected); Campylobacter PCR Not Detected (NotDetected); Cryptosporidium PCR Not Detected (NotDetected); Cyclospora cayetanensis PCR Not Detected (NotDetected); Entamoeba histolytica PCR Not Detected (NotDetected); Enteroaggregative E.coli(EAEC) Not Detected (NotDetected); Enteropathogenic E.coli (EPEC) Not Detected (NotDetected); Giardia lamblia PCR Not Detected (NotDetected); Plesiomonas shigelloides PCR Not Detected (NotDetected); Rotavirus A PCR Not Detected (NotDetected); Salmonella PCR Not Detected (NotDetected); Sapovirus PCR Not Detected (NotDetected); Shiga-like Toxin E.coli (STEC) Not Detected (NotDetected); Shigella/Enteroinvasive E.coli Not Detected (NotDetected); Vibrio cholerae PCR Not Detected (NotDetected); Vibrio species PCR Not Detected (NotDetected); Yersinia enterocolitica PCR Not Detected (NotDetected)
[2024-04-22 23:44] LABS: Enterotoxigenic E.coli (ETEC) DETECTED (NotDetected); Norovirus GI/GII PCR DETECTED (NotDetected)
[2024-04-23] MEDS ORDERED: Nursing to Pharmacy Communication SCH ×2 (07:15→19:00)
[2024-04-23 09:30] LABS: Basophils # (auto) 0.06 K/uL (0.00-0.20); Eosinophils # (auto) 0.14 K/uL (0.00-0.50); Eosinophils % (auto) 2.3 %; Hematocrit (blood only) 36.3 % (42.0-52.0); Hemoglobin 12.3 g/dl (14.0-18.0); Immature Granulocytes # (auto) 0.02 K/uL (0.01-0.20); Immature Granulocytes % (auto) 0.3 %; Lymphocytes # (auto) 1.29 K/uL (1.20-3.40); Lymphocytes % (auto) 21.6 %; Mean Corpuscular Hemoglobin 28.1 pg (25.0-34.0); Mean Corpuscular Hgb Conc 33.9 g/dL (32.0-36.0); Mean Corpuscular Volume 83.1 fL (80.0-100.0); Monocytes # (auto) 0.75 K/uL (0.11-0.59); Monocytes % (auto) 12.6 %; Neutrophils # (auto) 3.71 K/uL (1.40-6.50); Neutrophils % (auto) 62.2 %; Platelet Count 258 K/uL (130-400); RDW Coefficient of Variation 15.1 % (11.5-14.5); RDW Standard Deviation 45.8 fL (36.4-46.3); Red Blood Count 4.37 M/uL (4.70-6.10); White Blood Count 5.97 K/ul (4.8-10.8)
--- NOTE | 2024-04-23 09:45 | Gastroenterology Progress Note ---
Date of Service April 23, 2024 Assessment & Plan (1) Blood in stool: (2) Diarrhea: Plan 68 year old male with a past medical history of DM type II, dyslipidemia, HTN, CAD s/p PCI of the LAD using a single AMY, osteoarthritis admitted through the ED w/ bloody diarrhea - screening positive for both norovirus and enterotoxigenic ecoli. Maintain NPO status for anticipated EGD/Colonoscopy today Please refer to previous documentation for additional GI recommendations We appreciate assistance in the management of any serological abnormality and corrections to include: hemoglobin >7, INR <2, platelets >50,000, potassium levels >3.5 but <5.3, and sodium levels within 5 points of the reference range prior to endoscopic evaluation. Thank you for allowing us to participate in the care of this patient. Please call with any acute changes, questions or concerns. Please see addendum below with additional recommendation from my supervising physician. Admission and Anticipated Discharge Date Admission Date: April 21, 2024 Supervising Physician Co-Signing Physician Notes I personally saw and examined the patient. I have reviewed the chart and agree with the documentation provided by the HVAC PROJECT MANAGER including discussion about the assessment, treatment and plan. Briefly, + norovirus and etec. will only do flex sig and egd given persistent gerd and bleeding (an need for 2b3a). Subjective Pt was seen and evaluated, chart reviewed. NPO for anticipated endoscopic evaluation today Stool studies positive for both norovirus, enterotoxigenic ecoli Review of Systems Review of Systems: All other findings negative except as noted in HPI. Physical Exam Constitutional: WD/WN, vitals as above Respiratory: normal respiratory effort Cardiovascular: Rate/Rhythm: regular rate and regular rhythm Gastrointestinal (Abdomen): normal bowel sounds, soft, nontender, no hepatosplenomegaly Skin: no rashes, warm and dry Results & Data Results & Data Vital Signs (Past 12 Hours) Vital Signs Temp Pulse Pulse Resp BP Pulse Ox O2 Del Method 04/23/24 08:32 37.0 C 69 18 134/73 93 Room Air 04/23/24 03:26 36.6 C 75 17 146/70 H 92 Room Air 04/23/24 01:33 78 04/22/24 22:56 36.6 C 75 16 129/71 92 Room Air Laboratory Results 04/23/24 04/23/24 04/22/24 Range/Units 09:11 08:07 20:41 WBC 5.97 (4.8-10.8) K/ul RBC 4.37 L (4.70-6.10) M/uL Hgb 12.3 L (14.0-18.0) g/dl Hct 36.3 L (42.0-52.0) % MCV 83.1 (80.0-100.0) fL MCH 28.1 (25.0-34.0) pg MCHC 33.9 (32.0-36.0) g/dL RDW Std Deviation 45.8 (36.4-46.3) fL RDW Coeff of Dragan 15.1 H (11.5-14.5) % Plt Count 258 (130-400) K/uL MPV 9.0 L (9.4-12.4) fL Immature Gran % (Auto) 0.3 % Neut % (Auto) 62.2 % Lymph % (Auto) 21.6 % [place] % (Auto) 12.6 % Eos % (Auto) 2.3 % Baso % (Auto) 1.0 % Neut # (Auto) 3.71 (1.40-6.50) K/uL Lymph # (Auto) 1.29 (1.20-3.40) K/uL [place]ks # (Auto) 0.75 H (0.11-0.59) K/uL Eos # (Auto) 0.14 (0.00-0.50) K/uL Baso # (Auto) 0.06 (0.00-0.20) K/uL Immature Gran # (Auto) 0.02 (0.01-0.20) K/uL Sodium Pending Potassium Pending Chloride Pending Carbon Dioxide Pending Anion Gap Pending BUN Pending Creatinine Pending Est Cr Clr Drug Dosing Pending Est GFR ( Amer) Pending Est GFR (Non-Af Amer) Pending BUN/Creatinine Ratio Pending Glucose Pending POC Glucose 112 H (70-99) mg/dl Calcium Pending Phosphorus Pending Magnesium Pending Total Bilirubin Pending AST Pending ALT Pending Alkaline Phosphatase Pending Total Protein Pending Albumin Pending Globulin Pending Albumin/Globulin Ratio Pending Stl C. cayetanensis PCR Not Detected (NotDetected) Stool Rotavirus A PCR Not Detected (NotDetected) Stl Adenov F 40/41 PCR Not Detected (NotDetected) Stool Astrovirus (PCR) Not Detected (NotDetected) Stool Campylobacter PCR Not Detected (NotDetected) Stl C. diff Tox B Gene Negative Cdiff Gene (Neg) Stool Cryptosporidium PCR Not Detected (NotDetected) Stl E.coli Shiga Tox PCR Not Detected (NotDetected) Stl Enterotoxigenic E PCR DETECTED A* (NotDetected) Stool EPEC (PCR) Not Detected (NotDetected) Stool EAEC (PCR) Not Detected (NotDetected) Stl E. histolytica PCR Not Detected (NotDetected) Stool Giardia Lamblia PCR Not Detected (NotDetected) Stool Salmonella PCR Not Detected (NotDetected) Stool Sapovirus (PCR) Not Detected (NotDetected) Stl P. shigelloides PCR Not Detected (NotDetected) Stl Shigella/EIEC PCR Not Detected (NotDetected) St Y.enterocolitica PCR Not Detected (NotDetected) Stool Vibrio (PCR) Not Detected (NotDetected) Stl Vibrio cholerae PCR Not Detected (NotDetected) Stl Norovirus GI/GII PCR DETECTED A* (NotDetected) 04/22/24 04/22/24 04/22/24 Range/Units 20:00 16:52 12:30 WBC (4.8-10.8) K/ul RBC (4.70-6.10) M/uL Hgb (14.0-18.0) g/dl Hct (42.0-52.0) % MCV (80.0-100.0) fL MCH (25.0-34.0) pg MCHC (32.0-36.0) g/dL RDW Std Deviation (36.4-46.3) fL RDW Coeff of Dragan (11.5-14.5) % Plt Count (130-400) K/uL MPV (9.4-12.4) fL Immature Gran % (Auto) % Neut % (Auto) % Lymph % (Auto) % [place] % (Auto) % Eos % (Auto) % Baso % (Auto) % Neut # (Auto) (1.40-6.50) K/uL Lymph # (Auto) (1.20-3.40) K/uL [place] # (Auto) (0.11-0.59) K/uL Eos # (Auto) (0.00-0.50) K/uL Baso # (Auto) (0.00-0.20) K/uL Immature Gran # (Auto) (0.01-0.20) K/uL Sodium Potassium Chloride Carbon Dioxide Anion Gap BUN Creatinine Est Cr Clr Drug Dosing Est GFR ( Amer) Est GFR (Non-Af Amer) BUN/Creatinine Ratio Glucose POC Glucose 101 H 151 H 97 (70-99) mg/dl Calcium Phosphorus Magnesium Total Bilirubin AST ALT Alkaline Phosphatase Total Protein Albumin Globulin Albumin/Globulin Ratio Stl C. cayetanensis PCR (NotDetected) Stool Rotavirus A PCR (NotDetected) Stl Adenov F 40/41 PCR (NotDetected) Stool Astrovirus (PCR) (NotDetected) Stool Campylobacter PCR (NotDetected) Stl C. diff Tox B Gene (Neg) Stool Cryptosporidium PCR (NotDetected) Stl E.coli Shiga Tox PCR (NotDetected) Stl Enterotoxigenic E PCR (NotDetected) Stool EPEC (PCR) (NotDetected) Stool EAEC (PCR) (NotDetected) Stl E. histolytica PCR (NotDetected) Stool Giardia Lamblia PCR (NotDetected) Stool Salmonella PCR (NotDetected) Stool Sapovirus (PCR) (NotDetected) Stl P. shigelloides PCR (NotDetected) Stl Shigella/EIEC PCR (NotDetected) St Y.enterocolitica PCR (NotDetected) Stool Vibrio (PCR) (NotDetected) Stl Vibrio cholerae PCR (NotDetected) Stl Norovirus GI/GII PCR (NotDetected) PG Care Time/CCT Total # of Minutes Spent Total Time Spent with Patient: Total time spent is greater than 50% in coordination of care (as documented) at patient's floor/unit and/or counseling patient: Coding Level of Care Code None Diagnoses Blood in stool K92.1 Diarrhea, unspecified type R19.7 Diarrhea type: unspecified type (2) Diarrhea Diarrhea type: unspecified type Qualified Code(s): R19.7 - Diarrhea, unspecified
--- NOTE | 2024-04-23 09:48 | Anesthesiology Consultation ---
Date of Service April 23, 2024 Assessment & Plan Chart Review Chart Review: Acceptable Risk for Surgery, Patient NOT seen in Pre Admission Testing and entry analyst initiated Consults Requested none Proposed Anesthesia Anesthesia Type: MAC History Surgery Operation Date: 04/23/24 17:25 Proposed Procedures p Colonoscopy EGD Nidia Jacob MD Operation Date: 04/23/24 17:55 Proposed Procedures p Flexible Sigmoidoscopy Nidia Jacob MD s Esophagogastroduodenoscopy Nidia Jacob MD Height/Weight Height: 5 ft 8 in Weight: 111.2 kg Allergies Allergy/AdvReac Type Severity Reaction Status Date / Time No Known Allergies Allergy Unknown Verified 04/21/24 16:21 Medications Home Medications Medication Instructions Recorded Confirmed Last Taken aspirin 81 mg tablet,delayed 81 mg PO QDD 08/13/18 04/21/24 04/20/24 release (Nga Low Dose Aspirin) atorvastatin 80 mg tablet 80 mg PO HS 08/13/18 04/21/24 04/20/24 fexofenadine 180 mg tablet 180 mg PO QDD 08/13/18 04/21/24 04/20/24 fluticasone propionate 50 2 spray intranasal QAM 08/13/18 04/21/24 04/21/24 mcg/actuation nasal spray,suspension (Flonase Allergy Relief) lisinopril 20 mg tablet 20 mg PO QPM 08/13/18 04/21/24 04/20/24 magnesium 250 mg tablet 250 mg PO QDD 08/13/18 04/21/24 04/20/24 multivitamin 1 tab PO QAM 08/13/18 04/21/24 04/21/24 omega 3-dxp-hui-fish oil 1,000 mg 1 cap PO DAILY 08/13/18 04/21/24 04/21/24 (120 mg-180 mg) capsule (Fish Oil) potassium gluconate 550 mg (90 mg) 550 mg PO QDD 08/13/18 04/21/24 04/20/24 tablet diclofenac sodium 1 % topical gel 1 g topical QID 02/10/24 04/21/24 04/21/24 (Voltaren Arthritis Pain) esomeprazole magnesium 20 mg 20 mg PO DAILYBB 02/10/24 04/21/24 04/21/24 capsule,delayed release (Nexium) semaglutide 7 mg tablet (Rybelsus) 7 mg PO QAM 02/10/24 04/21/24 04/21/24 vit C 250 mg-vit E 90 mg-zinc 40 1 tab PO BID 02/10/24 04/21/24 04/21/24 mg-copper 1 ia-nayvpg-qugbhu capsule (PreserVision AREDS-2) gabapentin 100 mg capsule 100 mg PO HS #30 caps 02/12/24 04/21/24 04/20/24 metoprolol succinate 25 mg 12.5 mg (1/2 x 25 mg) PO QAM #30 02/12/24 04/21/24 04/21/24 tablet,extended release 24 hr tabs clopidogrel 75 mg tablet 75 mg PO QAM 04/21/24 04/21/24 04/21/24 ezetimibe 10 mg tablet 10 mg PO QAM 04/21/24 04/21/24 04/21/24 isosorbide mononitrate 30 mg 15 mg PO QAM 04/21/24 04/21/24 04/21/24 tablet,extended release 24 hr metformin 1,000 mg tablet 1,000 mg PO BIDWMEAL 04/21/24 04/21/24 04/21/24 montelukast 10 mg tablet 10 mg PO QAM 04/21/24 04/21/24 04/21/24 Active Medications Generic Name Dose Route Start Last Admin Trade Name Freq PRN Reason Stop Dose Admin Atorvastatin Calcium 80 mg 04/21/24 21:00 04/22/24 21:26 Atorvastatin 40 Mg Tab PO 05/21/24 20:59 80 mg HS KAREN Administration Clopidogrel Bisulfate 75 mg 04/22/24 09:00 04/23/24 07:38 Clopidogrel Bisulfate 75 Mg Tab PO 05/22/24 08:59 Not Given QAM KAREN Ezetimibe 10 mg 04/22/24 09:00 04/23/24 07:38 Ezetimibe 10 Mg Tab PO 05/22/24 08:59 Not Given QAM KAREN Fexofenadine HCl 180 mg 04/22/24 16:30 04/22/24 21:27 Fexofenadine Hcl 180 Mg Tab PO 05/22/24 16:29 180 mg QDD KAREN Administration Fish Oil 1 gm 04/22/24 09:00 04/23/24 07:38 [place]-3 (Purified Fish Oil) 1 Gm Cap PO 05/22/24 08:59 Not Given DAILY KAREN Fluticasone Propionate 2 sprays 04/22/24 09:00 04/22/24 08:16 Fluticasone Propionate Na Spr 16 Gm Btl NA 05/22/24 08:59 2 sprays QAM KAREN Administration Gabapentin 100 mg 04/21/24 21:00 04/22/24 21:27 Gabapentin 100 Mg Cap PO 05/21/24 20:59 100 mg HS KAREN Administration Hydromorphone HCl 1 mg 04/21/24 22:52 04/23/24 00:23 Hydromorphone Inj 1 Mg/Ml Syringe IV 05/05/24 22:51 1 mg Q4H PRN Administration Pain Pantoprazole Sodium 40 mg/ 100 mls @ 20 mls/hr 04/21/24 16:30 04/23/24 05:25 Dextrose IV 05/21/24 16:29 8 mg/hr Q5H KAREN 20 mls/hr Administration 8 MG/HR Lisinopril 20 mg 04/21/24 21:00 04/22/24 21:27 Lisinopril 20 Mg Tab PO 05/21/24 20:59 20 mg QPM KAREN Administration Melatonin 6 mg 04/22/24 02:45 04/23/24 00:23 Melatonin 3 Mg Tab PO 05/22/24 02:44 6 mg HS PRN Administration Sleep Metoprolol Succinate 12.5 mg 04/22/24 09:00 04/23/24 07:38 Metoprolol Succ 25mg Ext Rel Tab PO 05/22/24 08:59 Not Given QAM KAREN Montelukast Sodium 10 mg 04/22/24 09:00 04/23/24 07:38 Montelukast Sodium 10 Mg Tablet PO 05/22/24 08:59 Not Given QAM KAREN Multivitamins 1 tab 04/22/24 09:00 04/23/24 07:38 Multivitamin Tab PO 05/22/24 08:59 Not Given QAM KAREN Oxycodone HCl 5 - 10 mg 04/21/24 22:52 04/22/24 10:19 Oxycodone Hcl Ir 5 Mg Tab (Immediate Release) PO 05/05/24 22:51 10 mg QID PRN Administration Pain Past Medical History Medical History Finger avulsion middle right finger and reattached Non-insulin dependent type 2 diabetes mellitus Obesity (BMI 35.0-39.9 without comorbidity) Diabetes Seasonal allergies High cholesterol Past Surgical History Surgical History Hx of colonoscopy Hx of hernia repair as child Social History Smoking Status: Former smoker Do You Dip or Chew Tobacco: No Hx Alcohol Use: Yes Alcohol type: beer alcohol intake frequency: holidays/special occasions only Hx Substance Use: No substance use type: does not use Physical Exam Vital Signs Last Vital Signs Temp 37.0 C 04/23/24 08:32 Pulse 69 04/23/24 08:32 Resp 18 04/23/24 08:32 BP 134/73 04/23/24 08:32 Pulse Ox 93 04/23/24 08:32 O2 Del Method Room Air 04/23/24 08:32 Testing Laboratory Results 04/23/24 09:11 PT 11.3 Seconds (9.0-12.0) 04/21/24 14:44 INR 1.0 (0.9-1.1) 04/21/24 14:44 APTT 27 Seconds (21-31) 04/21/24 14:44 Hemoglobin A1c 6.5 % (4.5-5.6) H 04/22/24 06:55 04/23/24 08:07 POC Glucose 112 H Electrocardiogram Date: 04/21/24 Blood Pressure : */* mmHG Vent. Rate : 75 BPM Atrial Rate : 75 BPM P-R Int : 218 ms QRS Dur : 92 ms QT Int : 374 ms P-R-T Axes : 56 -52 27 degrees QTcB Int : 417 ms Sinus rhythm with 1st degree A-V block Left anterior fascicular block Abnormal ECG When compared with ECG of 21-Apr-2024 13:44, No significant change was found Confirmed by Earnest Amaro ([id number]) on 04/22/2024 8:06:13 AM Chest X-Ray Date: 04/21/24 HISTORY: chest pain COMPARISON: Chest 02/10/2024. FINDINGS: No pneumothorax. No pleural effusions. A few bibasilar linear densities favor subsegmental atelectasis or scarring. No new focal lung consolidations to suggest a pneumonia. No evidence for pulmonary edema. The heart is mildly enlarged. Stable prominence of the central pulmonary arteries. Calcifications within the aortic knob. No acute fractures. IMPRESSION: No acute process. Echocardiogram Date: 04/22/24 EF: 60-65 LV Function: normal RWMA: + hypokinetic Other Findings: + LVH (mild)
[2024-04-23 09:54] LABS: Albumin Globulin Ratio 1.7 (0.9-2); Albumin Level 4.5 gm/dl (3.4-5.0); Bilirubin,Total 1.4 mg/dl (0.2-1.0); Calcium 9.2 mg/dl (8.6-10.3); Creatinine Clr Calc Pharmacy 80.3 ml/min; Est GFR (African American) 81.9 ml/min; Est GFR (Non-African American) 70.6 ml/min; Globulin 2.7 gm/dl (2.5-4.0); Phosphorus 3.1 mg/dl (2.5-4.9); Total Protein 7.2 gm/dl (6.0-8.3)
[2024-04-23] MEDS: INSULIN ASPART PER UNIT CHARGE SC SCH ×2 (10:02→20:34)
[2024-04-23] MEDS: AZITHROMYCIN 250 MG TAB PO SCH (13:30)
[2024-04-23] MEDS: SODIUM CHLORIDE 0.9% 500 ML IV SCH (14:28)
--- NOTE | 2024-04-23 14:55 | GI REPORT ---
[facility] Patient: LEANDER SWANSON : 1955 Sex at : Male Age: 68 Years Procedure: Flexible Sigmoidoscopy Date: 04/23/2024 Attending Physician: Luis Jacob MD Referring MD: Referred Self Indications: - Rectal hemorrhage - Chronic diarrhea Medications: - See the Anesthesia note for documentation of the administered medications Complications: - No immediate complications. Estimated Blood Loss: - Estimated blood loss was minimal. Procedure: - Prior to the procedure, a History and Physical was performed, and patient medications and allergies were reviewed. The patient's tolerance of previous anesthesia was also reviewed. The risks and benefits of the procedure and the sedation options and risks were discussed with the patient. All questions were answered, and informed consent was obtained. Prior Anticoagulants: The patient has taken Plavix (clopidogrel), last dose was day of procedure. ASA Grade Assessment: IV - A patient with severe systemic disease that is a constant threat to life. After reviewing the risks and benefits, the patient was deemed in satisfactory condition to undergo the procedure. - The pediatric colonoscope was introduced through the anus and advanced to the left transverse colon. - The flexible sigmoidoscopy was accomplished with ease. - The patient tolerated the procedure well. - The quality of the bowel preparation was adequate. Findings: - Hemorrhoids were found on perianal exam. - Internal hemorrhoids were found during retroflexion. The hemorrhoids were Grade II (internal hemorrhoids that prolapse but reduce spontaneously). - A scattered area of mildly erythematous and congested mucosa was found in the left colon. Biopsies were taken with a cold forceps for histology. Estimated blood loss was minimal. Findings are non-specific but suggest infectious colitis. NO evidence of ischemic colitis or IBD Impression: - Hemorrhoids found on perianal exam. - Internal hemorrhoids. - Erythematous and congested mucosa Biopsied. - Findings are non-specific but suggest infectious colitis. NO evidence of ischemic colitis or IBD Recommendation: - Await pathology results. - Continue present medications. - start cholestyremine 4 gm upto bid for the chronic diarrhea. CANNOT USE IMMODIUM GIVEN ETEC. Procedure Code(s): - 34017, Sigmoidoscopy, flexible; with biopsy, single or multiple Diagnosis Code(s): - K62.5, Hemorrhage of anus and rectum - K52.9, Noninfective gastroenteritis and colitis, unspecified - K63.89, Other specified diseases of intestine - K64.1, Second degree hemorrhoids CPT(R) - 2022 copyright [employer]. All Rights Reserved. The CPT codes, CCI edits and ICD codes generated are intended as suggestions and were generated based on input data. These codes are preliminary and upon computer typesetter review may be revised to meet current compliance and payer requirements. The provider is responsible for the final determination of appropriate codes, and modifiers. Luis Jacob MD This document has been electronically signed. Note Initiated:04/23/2024 Note Completed:04/23/2024 2:55 PM [email or web address]\[email or web address]\Data\Provation\Results\[id number]
--- NOTE | 2024-04-23 15:08 | GI REPORT ---
[facility] Patient: LEANDER SWANSON : 1955 Sex at : Male Age: 68 Years Procedure: Upper GI endoscopy Date: 04/23/2024 Attending Physician: Luis Jacob MD Referring MD: Referred Self Indications: - Dysphagia - weight loss. Medications: - Monitored Anesthesia Care Complications: - No immediate complications. Estimated Blood Loss: - Estimated blood loss was minimal. Procedure: - Prior to the procedure, a History and Physical was performed, and patient medications and allergies were reviewed. The patient's tolerance of previous anesthesia was also reviewed. The risks and benefits of the procedure and the sedation options and risks were discussed with the patient. All questions were answered, and informed consent was obtained. Prior Anticoagulants: The patient has taken Plavix (clopidogrel), last dose was day of procedure. ASA Grade Assessment: IV - A patient with severe systemic disease that is a constant threat to life. After reviewing the risks and benefits, the patient was deemed in satisfactory condition to undergo the procedure. - The pediatric colonoscope was introduced through the mouth and advanced to the third part of the duodenum. - The upper GI endoscopy was accomplished without difficulty. - The patient tolerated the procedure well. Findings: - The cardia and gastric fundus were normal on retroflexion. - The examined duodenum was normal. - The examined esophagus was normal. Impression: - Normal examined duodenum. - Normal esophagus. - No specimens collected. Recommendation: - Continue present medications. - Patient has a contact number available for emergencies. The signs and symptoms of potential delayed complications were discussed with the patient. Return to normal activities tomorrow. Written discharge instructions were provided to the patient. - if gerd symptoms persist, suggest carafate. Procedure Code(s): - 70589, Esophagogastroduodenoscopy, flexible, transoral; diagnostic, including collection of specimen(s) by brushing or washing, when performed (separate procedure) Diagnosis Code(s): - R13.10, Dysphagia, unspecified CPT(R) - 202 copyright [employer]. All Rights Reserved. The CPT codes, CCI edits and ICD codes generated are intended as suggestions and were generated based on input data. These codes are preliminary and upon rubber roller grinder operator review may be revised to meet current compliance and payer requirements. The provider is responsible for the final determination of appropriate codes, and modifiers. Luis Jacob MD This document has been electronically signed. Note Initiated:04/23/2024 Note Completed:04/23/2024 3:07 PM \\[email or web address]\[email or web address]\Data\Provation\Results\LIVE\[id number]
--- NOTE | 2024-04-23 15:14 | Hospitalist Progress Note ---
Date of Service April 23, 2024 Assessment & Plan (1) Chest pain: (2) Blood in stool: Plan Almas Pack is a 68y/o M with PMHx of DM type II, dyslipidemia, HTN, CAD s/p PCI of the LAD using a single AMY [02/11/2024], osteoarthritis and other problems listed below who presented to the ED for evaluation secondary to chest pain and bloody diarrhea. Most recent confinement 02/09 to 02/11 here at [facility]. Presented with complaints of epigastric and chest pain radiating down both arms. EKG demonstrated normal sinus rhythm without ischemic changes. High sensitivity troponin was negative x 3. Patient subsequently underwent dobutamine stress echocardiogram which was positive for inferior wall ischemia. He also had sustained VT with dobutamine infusion. Patient was subsequently sent for diagnostic cardiac catheterization revealing 100% EQUIPMENT MANAGER of the RCA and 80% mid LAD lesion treated with 1 AMY. Patient was ultimately placed on dual antiplatelet therapy. Chest Pain CAD s/p Stent Placement Pt was at cardiac rehab this morning, complaining of some chest pain and had to subsequently stop exercising. Notes his chest pain has significantly improved since stent placement back in January, but he is still experiencing ongoing fatigue and episodes of worsening chest pain with some associated SOB. Troponin negative, EKG without ischemic changes CXR negative Echo pending Cardiology consulted, appreciate recs. Noted/Stated the following: "Chronic chest discomfort noted without evidence of acute coronary syndrome. Repeat echocardiogram with stable findings, preserved LV systolic function. Continue clopidogrel due to recent drug-eluting stent implantation. Aspirin will remain on hold at this time. Patient may proceed with endoscopy in AM. Cardiology will continue to follow during hospitalization." Continue patient's Plavix for now ASA stopped Continue statin EKG for chest pain PRN. Continue to monitor on telemetry Hematochezia Possible GI Bleed Norovirus infection ETEC infection Patient has had increased BRBPR since he was started on dual antiplatelet therapy according to recent [facility] documentation. He was previously on ASA and Brilinta following his discharge in January, but was transitioned to ASA and Plavix on 04/16 during his appointment with [facility]iology at [facility]. Hgb was stable at that time. He had mentioned to staff at cardiac rehab that he was still experiencing rectal bleeding even after being switched from Brilinta to Plavix. Dr. Daniel from [facility] recommended the patient be admitted to the hospital for further workup of his GI bleeding. Hgb down trended from 13.1 on 04/15 to 11.7 on admission in the ED CT abd/pelvis noting colitis Follow H/H PPI GI consulted, appreciate recs -IV PPI -stool studies, c diff -scope after cardiology workup/clearance Stool studies positive for ETEC and norovirus c diff negative Started on azithromycin 500mg x 3 doses for ETEC s/p EGD and flex sig with GI on 04/23 -EGD unremarkable, advised Carafate for GERD if worsening -Flex sig noting infectious colitis changes (biopsied) and internal hemorrhoids. Advised use if cholestyramine (NOT IMODIUM) for diarrhea. Continue to monitor Bilateral Calf Pain: Patient complaining of bilateral calf pain on admission Venous duplex US of bilateral lower extremities with no DVT DM Type II: 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 BSG checks ACHS, Hgb A1c in AM - follow. HTN: Stable, continue home medications. Dyslipidemia: Stable, continue home medications. DVT Prophylaxis: SCDs - Chemical DVT prophylaxis contraindicated secondary to GI bleeding. Code Status: FULL CODE PCP: Alonso Daigle MD Disposition: PT/OT for further recs once medically stable Admission and Anticipated Discharge Date Admission Date: April 21, 2024 Subjective pt was seen with at bedside. States he took prep overnight and it was horrible with the BMs. No noted blood. Chest pain improved. Review of Systems Review of Systems: All systems reviewed & are unremarkable except as noted in Subjective Physical Exam Physical Exam: General: Alert, oriented. No acute distress Skin: No noted rashes or bruises Psych: Appropriate mood and affect HEENT: NC/AT CV: RRR Resp: Breath sounds clear bilaterally, no increased effort of breathing Abdomen: Soft, tender R abdomen Extremities: edema in lower extremities bilaterally. Results & Data Results & Data Vital Signs (Past 12 Hours) Vital Signs Temp Pulse Resp BP Pulse Ox O2 Del Method 04/23/24 15:04 75 18 119/55 L 96 Room Air 04/23/24 14:49 76 16 106/36 L 96 Room Air 04/23/24 14:14 78 18 149/69 H 97 Room Air 04/23/24 11:44 36.8 C 74 18 124/69 94 Room Air 04/23/24 08:32 37.0 C 69 18 134/73 93 Room Air 04/23/24 03:26 36.6 C 75 17 146/70 H 92 Room Air (1) Chest pain Chest pain type: unspecified Qualified Code(s): R07.9 - Chest pain, unspecified
--- NOTE | 2024-04-23 15:24 | Anesthesiology Progress Note ---
Date of Service April 23, 2024 Anesthesia Post Procedure Vital Signs Vital Signs: Temp Pulse Pulse Resp BP Pulse Ox O2 Del Method 04/23/24 15:19 73 18 115/52 L 96 Room Air 04/23/24 15:04 75 18 119/55 L 96 Room Air 04/23/24 14:49 76 16 106/36 L 96 Room Air 04/23/24 14:14 78 18 149/69 H 97 Room Air 04/23/24 11:44 36.8 C 74 18 124/69 94 Room Air 04/23/24 08:32 37.0 C 69 18 134/73 93 Room Air 04/23/24 03:26 36.6 C 75 17 146/70 H 92 Room Air 04/23/24 01:33 78 04/22/24 22:56 36.6 C 75 16 129/71 92 Room Air 04/22/24 19:49 36.4 C L 75 18 131/75 96 Room Air 04/22/24 15:54 36.6 C 73 16 100/57 L 94 Room Air Pain Intensity Medial Chest: Pain Intensity: 4 Transfer of Care Handoff Completed per policy Notes Mental Status: alert / awake / arousable Patient Amnestic to Procedure: Yes Nausea / Vomiting: adequately controlled Pain: adequately controlled Airway Patency, RR, SpO2: stable & adequate BP & HR: stable & adequate Hydration State: stable & adequate Anesthetic Complications: no major complications apparent and Pt Satisfied with anesthetic care
[2024-04-23] MEDS: PANTOprazole 40 MG TAB PO SCH (20:30)
[2024-04-23] MEDS: ACETAMINOPHEN 325 MG TAB PO PRN (20:32)
[2024-04-24 06:19] LABS: Basophils # (auto) 0.07 K/uL (0.00-0.20); Basophils % (auto) 1.4 %; Eosinophils # (auto) 0.16 K/uL (0.00-0.50); Eosinophils % (auto) 3.2 %; Hematocrit (blood only) 33.9 % (42.0-52.0); Hemoglobin 11.4 g/dl (14.0-18.0); Immature Granulocytes # (auto) 0.02 K/uL (0.01-0.20); Immature Granulocytes % (auto) 0.4 %; Lymphocytes # (auto) 1.51 K/uL (1.20-3.40); Mean Corpuscular Hemoglobin 28.4 pg (25.0-34.0); Mean Corpuscular Hgb Conc 33.6 g/dL (32.0-36.0); Mean Corpuscular Volume 84.5 fL (80.0-100.0); Mean Platelet Volume 8.9 fL (9.4-12.4); Monocytes # (auto) 0.76 K/uL (0.11-0.59); Monocytes % (auto) 15.1 %; Neutrophils # (auto) 2.52 K/uL (1.40-6.50); Neutrophils % (auto) 49.9 %; Platelet Count 229 K/uL (130-400); RDW Standard Deviation 45.8 fL (36.4-46.3); Red Blood Count 4.01 M/uL (4.70-6.10); White Blood Count 5.04 K/ul (4.8-10.8)
[2024-04-24 06:45] LABS: Albumin Globulin Ratio 1.8 (0.9-2); Albumin Level 3.8 gm/dl (3.4-5.0); BUN Creatinine Ratio 11.4 (10-20); Bilirubin,Total 1.2 mg/dl (0.2-1.0); Calcium 8.7 mg/dl (8.6-10.3); Creatinine Clr Calc Pharmacy 82.6 ml/min; Est GFR (African American) 84.7 ml/min; Est GFR (Non-African American) 73.1 ml/min; Globulin 2.1 gm/dl (2.5-4.0); Phosphorus 3.9 mg/dl (2.5-4.9); Total Protein 5.9 gm/dl (6.0-8.3)
--- NOTE | 2024-04-24 08:25 | Cardiology Progress Note ---
Date of Service April 24, 2024 Assessment & Plan (1) GI bleeding: (2) Status post insertion of drug-eluting stent into left anterior descending (LAD) artery: (3) Diarrhea: (4) CAD (coronary artery disease), tribal coronary artery: Plan Patient admitted after several weeks of progressive GI bleeding associated with abdominal pain and diarrhea and epigastric pain. Hbg trending down slightly over the last few weeks 13.1, now 11.6 associated with worsening fatigue and dyspnea Outpatient GI evaluation was arranged, but due to ongoing symptoms, ER advised. Patient with recent AMY to the LAD and found to have RCA occlusion with collaterals in January 2024. Med management recommended for RCA. He was started on appropriate medical therapies including ASA, Brilinta, metoprolol, statin. Patient also has had intermittent chest pain/dyspnea since cardiac catheterization. Symptoms never fully resolved. Continued to take TUMS frequently. Has not used SL nitro. Isosorbide was initiated at 15 mg and then increased to 30 mg without significant improvement. Due to GI bleeding, Brilinta was stopped and transitioned to Plavix. Bleeding continued. He then had chest pain with worsening fatigue/dyspnea at cardiac rehab yesterday, so came to the ER. Since admission, EKG was without ischemic changes. HS troponin negative x4. Echocardiogram pending. Patient needs to continue antiplatelet therapy with Plavix given AMY to the LAD on 02/23/24. Aspirin currently on hold. Would recommend GI evaluation given his GI bleed, abdominal pain and intermittent epigastric pain/burning with frequent TUMs use. Would consider upper and lower endoscopies given severity of symptoms. Patient acceptable risk to proceed with GI procedures at this time. 04/24/2024: -patient underwent both upper endoscopy and sigmoidoscopy, findings as below: Sigmoidoscopy: Impression: - Hemorrhoids found on perianal exam. - Internal hemorrhoids. - Erythematous and congested mucosa Biopsied. - Findings are non-specific but suggest infectious colitis. NO evidence of ischemic colitis or IBD Plan: start cholestyremine 4 gm up to bid for the chronic diarrhea. CANNOT USE IMMODIUM GIVEN ETEC. EGD: Impression: - Normal examined duodenum. - Normal esophagus. - No specimens collected. Recommendation: - Continue present medications. - Patient has a contact number available for emergencies. The signs and symptoms of potential delayed complications were discussed with the patient. Return to normal activities tomorrow. Written discharge instructions were provided to the patient. - if gerd symptoms persist, suggest carafate. -Patient reports feeling improvement. Reports no new episodes of chest pain/pressure, has been up to the bathroom without incident. -H/H stable. Hospitalist staff advised that patient should be restarted on ASA 81mg in conjunction with his Plavix 75mg Daily for dual anti-platelet therapy. -BP well controlled. -Antibiotics and PPI per management of GI and primary team. for suspected infectious colitis. -Cardiac rehab placed on hold until patient has OP labs next week and a status check. -Continue GDMT with Atorvastatin, Zetia, Lisinopril, and Toprol xl. ASA and Plavix for DAPT. -Recommend CBC and BMP in one week. (plan for Friday04/30/24), will place in [facility] system. -Recommend OP cardiology follow up within 3-4 weeks. Will have [facility] clinic contact patient next week. -Patient is stable from a cardiac perspective and ok for discharge when cleared by primary team. Case has been discussed with Dr. Snider. Further recommendations regarding plan of care as per his assessment. I spent a total of 30 minutes on the date of service in preparation, delivery, documentation of the care provided to the patient excluding any time spent in the performance of separately billed services. GISSEL Mosher [facility] Admission and Anticipated Discharge Date Admission Date: April 21, 2024 Supervising Physician Co-Signing Physician Notes I have personally performed a history and physical examination on the patient. I have reviewed the advance practitioner's documentation, and I agree with, and take responsibility for the plan of care. 68-year-old male admitted secondary to bright red blood per rectum. Colonoscopy demonstrating possible infectious colitis. No recurrent bright red blood per rectum overnight. Hemoglobin remained stable. Resume dual antiplatelet therapy. Repeat CBC in approximately 1 week. No further inpatient cardiac testing or intervention recommended at this time. I spent a total of 30 minutes on the date of service in preparation, delivery, and documentation of the care provided to this patient, excluding any time spent in the performance of separately billed services. William Snider DO, [facility] Subjective 04/24/24: Patient seen and examined in follow up today. Feeling well. sitting up on the side of the bed. Remains on a clear liquid diet. Denies any chest pain, pressure or palpitations, no shortness of breath, pND, pre-syncope syncope or edema. Labs, vitals, diagnostics, telemetry and documentation reviewed. Telemetry reviewed showing SR with 1st degree AVB, rates 60's. No acute events overnight. Patient is asking if he can go home today. Per hospitalist, has been cleared by GI Review of Systems Review of Systems: All systems reviewed & are unremarkable except as noted in HPI & below Physical Exam Constitutional: well developed and well nourished; no acute distress and not ill appearing Neck: normal visual inspection and trachea midline Respiratory: normal respiratory effort, lungs clear to auscultation Cardiovascular: Rate/Rhythm: regular rate and regular rhythm Heart Sounds: normal S1 and normal S2; no murmur Vessels: dorsalis pedis pulses present; no JVD Extremities: + edema (Trace BLE) Skin: no rashes, warm and dry Psychiatric: A+Ox3, euthymic affect Results & Data Vital Signs (Past 12 Hours) Vital Signs Temp Pulse Pulse Resp BP Pulse Ox O2 Del Method 04/24/24 07:44 36.7 C 73 18 126/70 96 Room Air 04/24/24 07:08 65 04/24/24 03:11 36.6 C 61 16 117/62 97 Room Air 04/24/24 00:11 78 04/23/24 23:17 37 C 84 16 122/72 93 Room Air 04/23/24 20:41 Room Air 04/23/24 20:30 36.9 C 82 18 127/74 93 Room Air Laboratory Results Cardiac Enzymes 04/24/24 Range/Units 05:49 AST 17 (13-39) U/L CBC 04/24/24 Range/Units 05:49 WBC 5.04 (4.8-10.8) K/ul RBC 4.01 L (4.70-6.10) M/uL Hgb 11.4 L (14.0-18.0) g/dl Hct 33.9 L (42.0-52.0) % Plt Count 229 (130-400) K/uL Neut # (Auto) 2.52 (1.40-6.50) K/uL Lymph # (Auto) 1.51 (1.20-3.40) K/uL Harris # (Auto) 0.76 H (0.11-0.59) K/uL Eos # (Auto) 0.16 (0.00-0.50) K/uL Baso # (Auto) 0.07 (0.00-0.20) K/uL Comprehensive Metabolic Panel 04/24/24 Range/Units 05:49 Sodium 141 (136-145) mmol/L Potassium 4.0 (3.5-5.1) mmol/L Chloride 108 H (98-107) mmol/L Carbon Dioxide 29 (21-32) mmol/L BUN 12 (6-23) mg/dl Creatinine 1.05 (0.6-1.4) mg/dl Glucose 99 (70-99(Fasting)) mg/dl Calcium 8.7 (8.6-10.3) mg/dl AST 17 (13-39) U/L ALT 19 (7-52) U/L Alkaline Phosphatase 63 (34-104) U/L Total Protein 5.9 L (6.0-8.3) gm/dl Albumin 3.8 (3.4-5.0) gm/dl Intake and Output 04/23/24 04/24/24 04/24/24 22:59 06:59 14:59 Intake Total 32.667 / 394.667 240 / 394.667 Output Total 2 / 6 Balance 32.667 / 388.667 238 / 388.667 Intake: IV 32.667 / 154.667 PANTOprazole 40 mg In Dextrose 32.667 / 154.667 5% Mini-B 100 ml @ 8 MG/HR 20 mls/hr IV Q5H KAREN Rx#:[id number] Sodium Chloride 0.9% 500 ml @ 0 / 0 15 mls/hr IV .Q24H KAREN Rx#: [id number] Oral 240 / 240 Output: # Bowel Movements 2 / 6 Other: # Unmeasured Voids 2 Diagnostic Findings Echocardiogram 04/22/2024: LV systolic function is normal LVEF 60-65% Mild concentric LVH small sized inferior wall motion abnormality with hypokinesis of the segments No significant valvular pathology. (1) GI bleeding GI bleed type/associated pathology: unspecified gastrointestinal hemorrhage type Qualified Code(s): K92.2 - Gastrointestinal hemorrhage, unspecified (3) Diarrhea Diarrhea type: unspecified type Qualified Code(s): R19.7 - Diarrhea, unspecified (4) CAD (coronary artery disease), tribal coronary artery Associated angina: with stable angina [place] vs. transplanted heart: tribal heart Qualified Code(s): I25.118 - Atherosclerotic heart disease of tribal coronary artery with other forms of angina pectoris
[2024-04-24] MEDS: CHOLESTYRAMINE LIGHT 4 GM PKT PO PRN (12:33)
--- NOTE | 2024-04-24 13:47 | Hospitalist Progress Note ---
Date of Service April 24, 2024 Assessment & Plan (1) Chest pain: (2) Blood in stool: Plan Almas Pack is a 68y/o M with PMHx of DM type II, dyslipidemia, HTN, CAD s/p PCI of the LAD using a single AMY [02/11/2024], osteoarthritis and other problems listed below who presented to the ED for evaluation secondary to chest pain and bloody diarrhea. Most recent confinement 02/09 to 02/11 here at [facility]. Presented with complaints of epigastric and chest pain radiating down both arms. EKG demonstrated normal sinus rhythm without ischemic changes. High sensitivity troponin was negative x 3. Patient subsequently underwent dobutamine stress echocardiogram which was positive for inferior wall ischemia. He also had sustained VT with dobutamine infusion. Patient was subsequently sent for diagnostic cardiac catheterization revealing 100% MSW of the RCA and 80% mid LAD lesion treated with 1 AMY. Patient was ultimately placed on dual antiplatelet therapy. Chest Pain CAD s/p Stent Placement Pt was at cardiac rehab this morning, complaining of some chest pain and had to subsequently stop exercising. Notes his chest pain has significantly improved since stent placement back in January, but he is still experiencing ongoing fatigue and episodes of worsening chest pain with some associated SOB. Troponin negative, EKG without ischemic changes CXR negative Echo pending Cardiology consulted, appreciate recs. Noted/Stated the following: "Chronic chest discomfort noted without evidence of acute coronary syndrome. Repeat echocardiogram with stable findings, preserved LV systolic function. Continue clopidogrel due to recent drug-eluting stent implantation. Aspirin will remain on hold at this time. Patient may proceed with endoscopy in AM. Cardiology will continue to follow during hospitalization." Continue patient's Plavix for now ASA stopped Continue statin EKG for chest pain PRN. Continue to monitor on telemetry Hematochezia Possible GI Bleed Norovirus infection ETEC infection Patient has had increased BRBPR since he was started on dual antiplatelet therapy according to recent [facility] documentation. He was previously on ASA and Brilinta following his discharge in January, but was transitioned to ASA and Plavix on 04/16 during his appointment with [facility] at [facility]. Hgb was stable at that time. He had mentioned to staff at cardiac rehab that he was still experiencing rectal bleeding even after being switched from Brilinta to Plavix. Dr. Daniel from [facility] recommended the patient be admitted to the hospital for further workup of his GI bleeding. Hgb down trended from 13.1 on 04/15 to 11.7 on admission in the ED CT abd/pelvis noting colitis Follow H/H PPI GI consulted, appreciate recs -IV PPI -stool studies, c diff -scope after cardiology workup/clearance Stool studies positive for ETEC and norovirus c diff negative Started on azithromycin 500mg x 3 doses for ETEC s/p EGD and flex sig with GI on 04/23 -EGD unremarkable, advised Carafate for GERD if worsening -Flex sig noting infectious colitis changes (biopsied) and internal hemorrhoids. Advised use of cholestyramine (NOT IMODIUM) for diarrhea. Continue to monitor Dizziness Noted on 04/24 after multiple BMs orthostat vitals ordered push po fluids Continue with cholestyramine and Azithromycin to help control diarrhea Bilateral Calf Pain: Patient complaining of bilateral calf pain on admission Venous duplex US of bilateral lower extremities with no DVT DM Type II: 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 BSG checks ACHS, Hgb A1c in AM - follow. HTN: Stable, continue home medications. Dyslipidemia: Stable, continue home medications. DVT Prophylaxis: SCDs - Chemical DVT prophylaxis contraindicated secondary to GI bleeding. Code Status: FULL CODE PCP: Alonso Daigle MD Disposition: PT/OT for further recs once medically stable Admission and Anticipated Discharge Date Admission Date: April 21, 2024 Subjective pt was seen in the PM with at bedside. has still been having multiple episodes of watery diarrhea. States has also been very dizzy Review of Systems Review of Systems: All systems reviewed & are unremarkable except as noted in Subjective Physical Exam Physical Exam: General: Alert, oriented. No acute distress Skin: No noted rashes or bruises Psych: Appropriate mood and affect HEENT: NC/AT CV: RRR Resp: Breath sounds clear bilaterally, no increased effort of breathing Abdomen: Soft, tender R abdomen Extremities: edema in lower extremities bilaterally. Results & Data Results & Data Vital Signs (Past 12 Hours) Vital Signs Temp Pulse Pulse Resp BP Pulse Ox O2 Del Method 04/24/24 11:29 36.9 C 74 18 118/67 95 Room Air 04/24/24 07:44 36.7 C 73 18 126/70 96 Room Air 04/24/24 07:08 65 04/24/24 03:11 36.6 C 61 16 117/62 97 Room Air (1) Chest pain Chest pain type: unspecified Qualified Code(s): R07.9 - Chest pain, unspecified
[2024-04-25 06:22] LABS: Basophils # (auto) 0.07 K/uL (0.00-0.20); Basophils % (auto) 1.3 %; Eosinophils % (auto) 3.6 %; Hematocrit (blood only) 34.2 % (42.0-52.0); Hemoglobin 11.3 g/dl (14.0-18.0); Immature Granulocytes # (auto) 0.02 K/uL (0.01-0.20); Immature Granulocytes % (auto) 0.4 %; Lymphocytes # (auto) 1.45 K/uL (1.20-3.40); Lymphocytes % (auto) 25.9 %; Mean Corpuscular Hemoglobin 27.8 pg (25.0-34.0); Mean Corpuscular Volume 84.2 fL (80.0-100.0); Mean Platelet Volume 8.9 fL (9.4-12.4); Monocytes # (auto) 0.76 K/uL (0.11-0.59); Monocytes % (auto) 13.6 %; Neutrophils % (auto) 55.2 %; Platelet Count 245 K/uL (130-400); RDW Coefficient of Variation 14.9 % (11.5-14.5); RDW Standard Deviation 45.4 fL (36.4-46.3); Red Blood Count 4.06 M/uL (4.70-6.10)
[2024-04-25 07:17] LABS: Albumin Globulin Ratio 1.8 (0.9-2); Albumin Level 3.9 gm/dl (3.4-5.0); BUN Creatinine Ratio 11.8 (10-20); Bilirubin,Total 1.1 mg/dl (0.2-1.0); Creatinine Clr Calc Pharmacy 78.8 ml/min; Est GFR (African American) 80.1 ml/min; Est GFR (Non-African American) 69.1 ml/min; Globulin 2.2 gm/dl (2.5-4.0); Magnesium 1.9 mg/dl (1.7-2.4); Phosphorus 3.4 mg/dl (2.5-4.9); Total Protein 6.1 gm/dl (6.0-8.3)
--- NOTE | 2024-04-25 11:51 | XRay Report ---
KUB HISTORY: Generalized abdominal pain. Nausea. COMPARISON: KUB 02/10/2024. FINDINGS: The bowel gas pattern is unremarkable. There are no dilated loops of small bowel to suggest an obstruction. No renal calculi. No ureteral calculi. Calcifications in the deep pelvis likely rep resent phleboliths. These remain unchanged. No pneumoperitoneum or pneumatosis. Moderate fecal retent ion. Cholelithiasis again noted. IMPRESSION: 1. Nonobstructive bowel gas pattern. 2. Moderate fecal retention. 3. Cholelithiasis again noted. ACT 112: Negative or not required by law. Electronically signed by: Kulwant Martinez M.D. 04/25/2024 11:50 AM
[2024-04-25 13:10] LABS: Appearance Urine Clear (Clear); Bilirubin Urine Negative (Negative); Blood Urine Negative (Negative); Color Urine Yellow; Glucose Urine UA Negative (Negative); Ketones Urine Negative (Negative); Leukocyte Esterase Urine Negative (Negative); Nitrite Urine Negative (Negative); Protein Urine Negative (Negative); Specific Gravity Urine 1.004 (1.000-1.030); Urobilinogen Urine Negative (Negative)
--- NOTE | 2024-04-25 13:10 | Hospitalist Progress Note ---
Date of Service April 25, 2024 Assessment & Plan (1) Chest pain: (2) Blood in stool: Plan Almas Pack is a 68y/o M with PMHx of DM type II, dyslipidemia, HTN, CAD s/p PCI of the LAD using a single AMY [02/11/2024], osteoarthritis and other problems listed below who presented to the ED for evaluation secondary to chest pain and bloody diarrhea. Most recent confinement 02/09 to 02/11 here at [facility]. Presented with complaints of epigastric and chest pain radiating down both arms. EKG demonstrated normal sinus rhythm without ischemic changes. High sensitivity troponin was negative x 3. Patient subsequently underwent dobutamine stress echocardiogram which was positive for inferior wall ischemia. He also had sustained VT with dobutamine infusion. Patient was subsequently sent for diagnostic cardiac catheterization revealing 100% SHUTTLELESS LOOM WEAVER of the RCA and 80% mid LAD lesion treated with 1 AMY. Patient was ultimately placed on dual antiplatelet therapy. Chest Pain CAD s/p Stent Placement Pt was at cardiac rehab this morning, complaining of some chest pain and had to subsequently stop exercising. Notes his chest pain has significantly improved since stent placement back in January, but he is still experiencing ongoing fatigue and episodes of worsening chest pain with some associated SOB. Troponin negative, EKG without ischemic changes CXR negative Echo with EF 60-65%, mild LVH and inferior wall hypokinesis Cardiology consulted, appreciate recs. Noted/Stated the following: "68-year-old male admitted secondary to bright red blood per rectum. Colonoscopy demonstrating possible infectious colitis. No recurrent bright red blood per rectum overnight. Hemoglobin remained stable. Resume dual antiplatelet therapy. Repeat CBC in approximately 1 week. No further inpatient cardiac testing or intervention recommended at this time. Per Cardiology "Chronic chest discomfort noted without evidence of acute coronary syndrome. Repeat echocardiogram with stable findings, preserved LV systolic function. " Continue patient's Plavix and aspirin after aspirin was previously held Continue statin EKG for chest pain PRN. Continue to monitor on telemetry Hematochezia Possible GI Bleed Norovirus infection ETEC infection Patient has had increased BRBPR since he was started on dual antiplatelet therapy according to recent [facility] documentation. He was previously on ASA and Brilinta following his discharge in January, but was transitioned to ASA and Plavix on 04/16 during his appointment with [facility] at [facility]. Hgb was stable at that time. He had mentioned to staff at cardiac rehab that he was still experiencing rectal bleeding even after being switched from Brilinta to Plavix. Dr. Daniel from [facility] recommended the patient be admitted to the hospital for further workup of his GI bleeding. Hgb down trended from 13.1 on 04/15 to 11.7 on admission in the ED CT abd/pelvis noting colitis Follow H/H PPI GI consulted, appreciate recs -IV PPI -stool studies, c diff -scope after cardiology workup/clearance Stool studies positive for ETEC and norovirus c diff negative Started on azithromycin 500mg x 3 doses for ETEC s/p EGD and flex sig with GI on 04/23 -EGD unremarkable, advised Carafate for GERD if worsening -Flex sig noting infectious colitis changes (biopsied) and internal hemorrhoids. Advised use of cholestyramine (NOT IMODIUM) for diarrhea. Improving Dizziness Noted on 04/24 after multiple BMs orthostat vitals ordered, not indicative of orthostatic hypotension push po fluids Continue with cholestyramine and Azithromycin course to help control diarrhea Cardiology contacted on 04/25- advised no further cardiac changes Continue to monitor Bilateral Calf Pain: Patient complaining of bilateral calf pain on admission Venous duplex US of bilateral lower extremities with no DVT DM Type II: 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 BSG checks ACHS, Hgb A1c in AM - follow. HTN: Stable, continue home medications. Dyslipidemia: Stable, continue home medications. DVT Prophylaxis: SCDs/teds- Chemical DVT prophylaxis contraindicated secondary to GI bleeding. Code Status: FULL CODE PCP: Alonso Daigle MD Disposition: PT/OT recommending return home Admission and Anticipated Discharge Date Admission Date: April 21, 2024 Subjective pt was seen in the AM. Has had no BMs so far today. But per nursing and pt having episodes of lightheadedness or dizziness while bending over of using the bathroom. Review of Systems Review of Systems: All systems reviewed & are unremarkable except as noted in Subjective Physical Exam Physical Exam: General: Alert, oriented. No acute distress Skin: No noted rashes or bruises Psych: Appropriate mood and affect HEENT: NC/AT CV: RRR Resp: Breath sounds clear bilaterally, no increased effort of breathing Abdomen: Soft, tender R abdomen Extremities: edema in lower extremities bilaterally. Results & Data Results & Data Vital Signs (Past 12 Hours) Vital Signs Temp Pulse Pulse Resp BP BP Pulse Ox 04/25/24 11:31 36.9 C 66 16 126/76 96 04/25/24 09:30 36.6 C 74 18 162/75 H 96 04/25/24 07:11 36.6 C 60 16 130/71 93 04/25/24 07:08 65 04/25/24 03:08 36.7 C 62 16 113/72 95 O2 Del Method 04/25/24 11:31 Room Air 04/25/24 09:30 Room Air 04/25/24 07:11 Room Air 04/25/24 07:08 04/25/24 03:08 Room Air (1) Chest pain Chest pain type: unspecified Qualified Code(s): R07.9 - Chest pain, unspecified
[2024-04-25] MEDS: ASPIRIN 81 MG ECTAB PO SCH (16:19)
--- NOTE | 2024-04-25 20:41 | Communication Note ---
Date of Service: April 25, 2024 Stroke alert called around 8:45 PM Patient called nurse around 8:30 PM. Complaining of dizziness and bright spots for about an hour. On exam, patient noted to have subtle weakness on the left face and left arm and left leg as per RN. PPE Obese Nasolabial fold flattening left MMTs 4/5 RUE/RLE > LUE/LLE CT head: 1. Stable age-related findings. 2. No acute infarct, bleed, or acute intracranial abnormality. CT angio head: 1. No aneurysm or large vessel occlusion. CTA neck: 1. No dissection, occlusion, or significant stenosis. Symptoms resolved upon arrival at ICU for inpatient stroke alert monitoring. AP TIA Recent GI bleed Patient not a candidate for thrombolytic therapy given resolved symptoms and recent GI bleed as per discussion with Dr. Trammell ([facility]). He recommends MRI of the brain and inpatient neurology consultation in AM.
--- NOTE | 2024-04-25 21:22 | CT Scan Report ---
Exam(s): CTA NECK With Contrast IV Amt: 116 ML OPTIRAY 320 EXAM: CT Angiography Neck With Intravenous Contrast CLINICAL HISTORY: Reason for exam: neuro deficit, acute stroke suspected. TECHNIQUE: Routine carotid CT angiography protocol was performed with intravenous contrast. NASCET criteria using the distal ICAs for comparison were used for evaluation of stenoses. CTDI is 63 mGy and DLP is 961 mGy-cm. Automated exposure control was utilized for the study. A dose lowering technique was utilized adhering to the principles of ALARA. MIP reconstructed images were created and reviewed. Mild external metal and shoulder artifact. CONTRAST: Patient received 116 ML OPTIRAY 320 of IV contrast COMPARISON: None. FINDINGS: Right common carotid artery: Patent. Right internal carotid artery: Patent. Right vertebral artery: Patent. Slight right dominant system. Left common carotid artery: Patent. Left internal carotid artery: Patent. Left vertebral artery: Patent. Other: Moderate dense atherosclerotic calcification bilateral bifurcation, without significant stenosis. Mild aortic atherosclerosis. IMPRESSION: 1. No dissection, occlusion, or significant stenosis. CAROTID STENOSIS REFERENCE USING NASCET CRITERIA: % ICA stenosis = (1 - narrowest ICA diameter/diameter of distal cervical ICA) x 100. Mild - <50% stenosis. Moderate - 50-69% stenosis. Severe - 70-94% stenosis. Near occlusion - 95-99% stenosis. Occluded - 100% stenosis. Communications: Call Doctor Stroke Electronically signed by: Holli David M.D. 04/25/24 21:21 PM
--- NOTE | 2024-04-25 21:23 | CT Scan Report ---
Exam(s): CT HEAD Without Contrast EXAM: CT Head Without Intravenous Contrast CLINICAL HISTORY: Reason for exam: neuro deficit, acute stroke suspected. TECHNIQUE: Axial computed tomography images of the head/brain without intravenous contrast. CTDI is 63 mGy and DLP is 961 mGy-cm. Automated exposure control was utilized for the study. A dose lowering technique was utilized adhering to the principles of ALARA. COMPARISON: Head CT 11/23/22. FINDINGS: Brain: No mass effect or acute infarct. No acute hemorrhage. Mild atrophy and chronic white matter disease, stable. Ventricles: No hydrocephalus or midline shift. Bones/joints: No acute finding. Soft tissues: No scalp hematoma. Visualized Sinuses: Clear. Mastoid air cells: No mastoid effusion. IMPRESSION: 1. Stable age-related findings. 2. No acute infarct, bleed, or acute intracranial abnormality. Communications: Call Doctor Stroke Electronically signed by: Holli David M.D. 04/25/24 21:22 PM
--- NOTE | 2024-04-25 21:24 | CT Scan Report ---
Exam(s): CTA HEAD With Contrast IV Amt: 116 ML OPTIRAY 320 EXAM: CT Angiography Head With Intravenous Contrast CLINICAL HISTORY: Reason for exam: neuro deficit, acute stroke suspected. TECHNIQUE: Axial computed tomographic angiography images of the head with intravenous contrast. CTDI is 63 mGy and DLP is 961 mGy-cm. Automated exposure control was utilized for the study. A dose lowering technique was utilized adhering to the principles of ALARA. MIP reconstructed images were created and reviewed. Venous contamination. CONTRAST: Patient received 116 ML OPTIRAY 320 of IV contrast COMPARISON: Head CT done earlier. FINDINGS: Right internal carotid artery: Patent. Right anterior cerebral artery: Patent. Right middle cerebral artery: Patent. Right posterior cerebral artery: Patent. Right vertebral artery: Patent. Left internal carotid artery: Patent. Left anterior cerebral artery: Patent. Left middle cerebral artery: Patent. Left posterior cerebral artery: Patent. Left vertebral artery: Patent. Basilar artery: Patent. Other: Mild atherosclerosis bilateral cavernous ICA, without significant stenosis. Patent dural venous sinuses. IMPRESSION: 1. No aneurysm or large vessel occlusion. Communications: Call Doctor Stroke Electronically signed by: Holli David M.D. 04/25/24 21:22 PM
[2024-04-25] MEDS ORDERED: PHARMACIST DISCHARGE MED REC CONSULT PRN (22:03)
[2024-04-25 22:06] LABS: Basophils # (auto) 0.07 K/uL (0.00-0.20); Basophils % (auto) 1.1 %; Eosinophils # (auto) 0.25 K/uL (0.00-0.50); Eosinophils % (auto) 3.8 %; Hematocrit (blood only) 36.8 % (42.0-52.0); Hemoglobin 12.4 g/dl (14.0-18.0); Immature Granulocytes # (auto) 0.02 K/uL (0.01-0.20); Immature Granulocytes % (auto) 0.3 %; Lymphocytes # (auto) 1.35 K/uL (1.20-3.40); Lymphocytes % (auto) 20.5 %; Mean Corpuscular Hemoglobin 28.3 pg (25.0-34.0); Mean Corpuscular Hgb Conc 33.7 g/dL (32.0-36.0); Mean Platelet Volume 8.6 fL (9.4-12.4); Monocytes # (auto) 0.83 K/uL (0.11-0.59); Monocytes % (auto) 12.6 %; Neutrophils # (auto) 4.05 K/uL (1.40-6.50); Neutrophils % (auto) 61.7 %; Platelet Count 246 K/uL (130-400); RDW Coefficient of Variation 14.7 % (11.5-14.5); RDW Standard Deviation 44.8 fL (36.4-46.3); Red Blood Count 4.38 M/uL (4.70-6.10); White Blood Count 6.57 K/ul (4.8-10.8)
[2024-04-25 22:16] LABS: INR 1.1 (0.9-1.1); Partial Thromboplastin Time 27 Seconds (21-31); Prothrombin Time 11.4 Seconds (9.0-12.0)
[2024-04-25 22:35] LABS: Albumin Globulin Ratio 1.7 (0.9-2); Albumin Level 4.3 gm/dl (3.4-5.0); Bilirubin,Total 0.9 mg/dl (0.2-1.0); Calcium 9.5 mg/dl (8.6-10.3); Creatinine Clr Calc Pharmacy 66.7 ml/min; Est GFR (African American) 65.4 ml/min; Est GFR (Non-African American) 56.5 ml/min; Globulin 2.5 gm/dl (2.5-4.0); Magnesium 1.9 mg/dl (1.7-2.4); Potassium 3.8 mmol/L (3.5-5.1); Total Protein 6.8 gm/dl (6.0-8.3)
[2024-04-25 22:42] LABS: Troponin I High Sensitivity 4.5 pg/ml (0-20)
[2024-04-25] MEDS: MAGNESIUM SULFATE / D5W 1 GM/100 ML BAG IV ONE (23:05)
[2024-04-25] MEDS: SODIUM CHLORIDE 0.9% 1,000 ML IV ONE (23:05)
[2024-04-25] MEDS: ACETAMINOPHEN 1,000 MG/100 ML VIAL IV STA (23:07)
--- NOTE | 2024-04-26 01:26 | Magnetic Resonance Report ---
Exam(s): MRI HEAD Without Contrast EXAM: MR Head Without Intravenous Contrast CLINICAL HISTORY: Reason for exam: tia. TECHNIQUE: Magnetic resonance images of the head/brain without intravenous contrast in multiple planes. COMPARISON: No relevant prior studies available. FINDINGS: No acute territorial infarct. No acute intracranial hemorrhage. No midline shift or mass effect. The territorial hilliard-white matter differentiation is maintained throughout. Age-related cerebral volume loss. Periventricular and subcortical white matter T2 signal intensity, consistent with chronic microangiopathy. The visualized orbits appear grossly unremarkable. The calvarium is intact. Small mucous retention cyst in the LEFT maxillary sinus. IMPRESSION: No acute territorial infarct. No acute intracranial hemorrhage. No midline shift or mass effect. Electronically signed by: Dany Crowe MD 04/26/24 01:25 AM
[2024-04-26] MEDS: DOCUSATE SODIUM 100 MG CAP PO ONE (02:38)
[2024-04-26 08:31] LABS: Basophils # (auto) 0.07 K/uL (0.00-0.20); Basophils % (auto) 1.1 %; Eosinophils # (auto) 0.24 K/uL (0.00-0.50); Eosinophils % (auto) 3.8 %; Hematocrit (blood only) 36.3 % (42.0-52.0); Hemoglobin 12.1 g/dl (14.0-18.0); Immature Granulocytes # (auto) 0.02 K/uL (0.01-0.20); Immature Granulocytes % (auto) 0.3 %; Lymphocytes # (auto) 1.36 K/uL (1.20-3.40); Lymphocytes % (auto) 21.6 %; Mean Corpuscular Hemoglobin 28.2 pg (25.0-34.0); Mean Corpuscular Hgb Conc 33.3 g/dL (32.0-36.0); Mean Corpuscular Volume 84.6 fL (80.0-100.0); Mean Platelet Volume 9.1 fL (9.4-12.4); Monocytes # (auto) 0.86 K/uL (0.11-0.59); Monocytes % (auto) 13.7 %; Neutrophils # (auto) 3.74 K/uL (1.40-6.50); Neutrophils % (auto) 59.5 %; Platelet Count 253 K/uL (130-400); RDW Standard Deviation 45.7 fL (36.4-46.3); Red Blood Count 4.29 M/uL (4.70-6.10); White Blood Count 6.29 K/ul (4.8-10.8)
[2024-04-26 08:44] LABS: Albumin Globulin Ratio 1.8 (0.9-2); Albumin Level 4.1 gm/dl (3.4-5.0); BUN Creatinine Ratio 13.3 (10-20); Bilirubin,Total 0.9 mg/dl (0.2-1.0); Calcium 8.9 mg/dl (8.6-10.3); Chol HDL Ratio 3.8 (0-5); Creatinine Clr Calc Pharmacy 82.6 ml/min; Est GFR (African American) 84.7 ml/min; Est GFR (Non-African American) 73.1 ml/min; Globulin 2.3 gm/dl (2.5-4.0); Magnesium 2.1 mg/dl (1.7-2.4); Phosphorus 3.8 mg/dl (2.5-4.9); Potassium 3.7 mmol/L (3.5-5.1); Total Protein 6.4 gm/dl (6.0-8.3)
--- NOTE | 2024-04-26 12:13 | Neurology Consultation ---
Date of Consultation April 26, 2024 Assessment & Plan (1) Orthostatic dizziness: Suspect this to be the main reason for his symptoms associated with anxiety. Can be attributable to long standing diabetes and possible dysautonomia. CTA shows no significant stenosis or large vessel occlusion MRI is negative Plan Check orthostatic blood pressures. Continue to monitor telemetry and consider Zio patch upon discharge. IV hydration. Consider elastic stockings, thigh-high, abdominal band. The above is orthostatic blood pressures positive. Counseling regarding his anxiety. Telehealth Consultation Telehealth Information Telehealth Information: I performed this visit using a real-time telehealth connection between my location and the patients location ([facility]). After connecting through interactive tele-video, patient was identified by name and date of and/or wristband check.Patient (or authorized healthcare technical sales representative) was informed that this was a telemedicine visit and it was being conducted confidentially over secure lines. My office door was closed and no one else was present in the room with me.Patient (or authorized healthcare technical sales representative) provided consent to proceed with the visit, expressed an understanding of privacy and security of the telemedicine visit, and gave permission to have a hospital technical sales representative in the room in order to assist with the visit and to conduct portions of the visit, as needed. I informed the patient (or authorized healthcare technical sales representative) that I reviewed their record a nd presented the opportunity for them to ask any questions regarding the visit today. The patient agreed to participate. History of Present Illness Reason for Consultation: stroke-like symptoms Requesting Physician: Gladis Jorgensen MD Attending Physician: Gladis Jorgensen MD History of Present Illness Almas House is a 68 Y.O.M with PMH of HTN, HLP, type II DM, CAD status post PCI of LAD in January 2024, who has been hospitalized since 04/21 for fatigue and chest pain he has lower GI bleeding after PCI due to being on aspirin and Brilinta, Brilinta was switched to Plavix and lower GI bleed persisted. His hemoglobin was noted to be down to 11.7 from 13.1. On the day of admission the patient had felt dizzy and lightheaded which was associated with some chest p ain. Yesterday about 8:45 PM a stroke alert was called on him for reporting dizziness and seeing bright spots for about an hour,. His exam was noted for questionable left nasolabial fold flattening with the right side noted to be stronger than the left side. CT scan of the head showed no acute changes and CTA showed no dissection occlusion or significant stenosis. An MRI was subsequently done and showed no acute ischemia.. The patient tells me that his symptoms are mainly whenever he is laying down and he wants to sit up. But yesterday it was more prolonged today than with when he is looking at a light source such as the window he would see bright lights.This made him anxious yesterday. He reports having this slight lightheadedness whenever he is sitting and helping to stand up lately. He reports a lot of anxiety around this. He denies any focal neurological deficits denies any numbness or weakness denies any visual changes, denies any double vision, denies any changes in his gait. He walks and uses a walker for balance Allergies Allergy/AdvReac Type Severity Reaction Status Date / Time No Known Allergies Allergy Unknown Verified 04/23/24 14:23 Home Medications Medication Instructions Recorded Confirmed Type aspirin 81 mg tablet,delayed 81 mg PO QDD 08/13/18 04/21/24 History release (Nga Low Dose Aspirin) atorvastatin 80 mg tablet 80 mg PO HS 08/13/18 04/21/24 History fexofenadine 180 mg tablet 180 mg PO QDD 08/13/18 04/21/24 History fluticasone propionate 50 2 spray intranasal QAM 08/13/18 04/21/24 History mcg/actuation nasal spray,suspension (Flonase Allergy Relief) lisinopril 20 mg tablet 20 mg PO QPM 08/13/18 04/21/24 History magnesium 250 mg tablet 250 mg PO QDD 08/13/18 04/21/24 History multivitamin 1 tab PO QAM 08/13/18 04/21/24 History omega 1-kxq-dia-fish oil 1,000 mg 1 cap PO DAILY 08/13/18 04/21/24 History (120 mg-180 mg) capsule (Fish Oil) potassium gluconate 550 mg (90 mg) 550 mg PO QDD 08/13/18 04/21/24 History tablet diclofenac sodium 1 % topical gel 1 g topical QID 02/10/24 04/21/24 History (Voltaren Arthritis Pain) esomeprazole magnesium 20 mg 20 mg PO DAILYBB 02/10/24 04/21/24 History capsule,delayed release (Nexium) semaglutide 7 mg tablet (Rybelsus) 7 mg PO QAM 02/10/24 04/21/24 History vit C 250 mg-vit E 90 mg-zinc 40 1 tab PO BID 02/10/24 04/21/24 History mg-copper 1 se-pobewa-kqccux capsule (PreserVision AREDS-2) gabapentin 100 mg capsule 100 mg PO HS #30 caps 02/12/24 04/21/24 Rx metoprolol succinate 25 mg 12.5 mg (1/2 x 25 mg) PO QAM #30 02/12/24 04/21/24 Rx tablet,extended release 24 hr tabs clopidogrel 75 mg tablet 75 mg PO QAM 04/21/24 04/21/24 History ezetimibe 10 mg tablet 10 mg PO QAM 04/21/24 04/21/24 History isosorbide mononitrate 30 mg 15 mg PO QAM 04/21/24 04/21/24 History tablet,extended release 24 hr metformin 1,000 mg tablet 1,000 mg PO BIDWMEAL 04/21/24 04/21/24 History montelukast 10 mg tablet 10 mg PO QAM 04/21/24 04/21/24 History Patient History Medical History Finger avulsion middle right finger and reattached Non-insulin dependent type 2 diabetes mellitus Obesity (BMI 35.0-39.9 without comorbidity) Diabetes Seasonal allergies High cholesterol Surgical History Hx of colonoscopy Hx of hernia repair as child Social History Smoking Status: Former smoker Tobacco Type: Cigarettes Second Hand Exposure: No; Do You Dip or Chew Tobacco: No; Hx Alcohol Use: Yes Alcohol type: beer Hx Substance Use: No Preferred Language: Stateless Communication Ability: Effective Presentation Specialist Required: No Beliefs That Will Affect Care: None Current Living Situation: Spouse Current Living Situation Comment: lives at home with Lindy 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 Feels Safe at Home: Yes and No Is there a partner from a previous relationship who is making you feel unsafe now?: No Assistive Devices: Glasses Review of Systems All negative except for the points mentioned in HPI Physical Exam General Constitutional: Appearance normally developed Head and face: normocephalic and atraumatic Eyes: no ptosis, no anisocoria, and no dysconjugate gaze Respiratory: normal effort Cardiovascular: regular rhythm and regular rate Abdomen: non distended Skin: no rashes, lesions, or ulcers noted Psychiatric: normal judgement and insight, normal mood, and normal affect NEUROLOGIC EXAMINATION: Mental Status:alert, oriented to time, place, person, normal recent memory, normal remote memory, normal attention span, normal concentration, normal language and normal fund of knowledge Cranial Nerves: CN 2 - no visual defect on confrontation and pupils round, equal, reactive to light CN 3, 4, 6 - extra-ocular movements intact and no nystagmus CN 5 - facial sensation intact CN 7 - no facial asymmetry CN 8 - intact hearing CN 9, 10 - palate symmetric, normal gag CN 11 - good shoulder shrug CN 12 - tongue midline MOTOR: Strength was at least antigravity throughout, Pronator drift was absent and There were no abnormal movements SENSATION: intact and symmetric to pinprick, light touch, vibration and joint position GAIT: stable, no ataxia and can perform tandem walking COORDINATION: no ataxia with finger to nose testing and heel to fink testing REFLEXES: cannot assess over telemedicine NIH Stroke Scale: 1a. Level of Consciousness: alert = 0 1b. LOC Questions: (month, age): both correct = 0 1c. LOC Commands (open and close eyes, make fist and let go using non-paretic hand): obeys both correctly = 0 2. Best Gaze (eyes open and patient follows examiner's finger or face): normal = 0 3. Visual (visual threat or finger counting in each quadrant): no loss = 0 4. Facial Palsy (show teeth, raise eye brows and squeeze eyes shut, or grimace symmetry in a comatose patient): normal = 0 5a. Motor Arm (extend arm (palms down) to 90 degrees and score drift/movement (10 seconds) - Left: no drift = 0 5b. Motor Arm: (extend arm (palms down) to 90 degrees and score drift/movement (10 seconds) - Right: no drift = 0 6a. Motor Leg (elevate leg 30 degrees and score drift/ movement (5 seconds) - Left: no drift = 0 6b. Motor Leg (elevate leg 30 degrees and score drift/ movement (5 seconds) - Right: no drift = 0 7. Limb Ataxia (finger to nose, heel down fink): absent = 0 8. Sensory (pin prick to face, arm, trunk and leg, compare side to side): normal = 0 9. Best Language: no aphasia = 0 10. Dysarthria (evaluate speech clarity by patient repeating listed words): normal articulation = 0 11. Extinction and Inattention: no neglect = 0 Total: 0 Results & Data Vital Signs (Past 12 Hours) Vital Signs Temp Pulse Pulse Resp BP BP Pulse Ox 04/26/24 11:14 36.8 C 73 18 135/73 93 04/26/24 07:36 36.6 C 65 16 144/73 H 96 04/26/24 07:25 62 04/26/24 04:00 36.0 C L 67 16 138/60 93 04/26/24 00:18 36.6 C 67 16 144/84 H 94 O2 Del Method 04/26/24 11:14 Room Air 04/26/24 07:36 Room Air 04/26/24 07:25 04/26/24 04:00 Room Air 04/26/24 00:18 Room Air Laboratory Results Abnormal lab results 04/25/24 04/25/24 04/25/24 Range/Units 16:55 20:42 21:54 RBC 4.38 L (4.70-6.10) M/uL Hgb 12.4 L (14.0-18.0) g/dl Hct 36.8 L (42.0-52.0) % RDW Coeff of Dragan 14.7 H (11.5-14.5) % MPV 8.6 L (9.4-12.4) fL [place] # (Auto) 0.83 H (0.11-0.59) K/uL Glucose (70-99(Fasting)) mg/dl POC Glucose 107 H 107 H (70-99) mg/dl Globulin (2.5-4.0) gm/dl Triglycerides (0-150) mg/dl VLDL Cholesterol, Calc (0-30) mg/dl 04/26/24 04/26/24 Range/Units 07:41 08:15 RBC 4.29 L (4.70-6.10) M/uL Hgb 12.1 L (14.0-18.0) g/dl Hct 36.3 L (42.0-52.0) % RDW Coeff of Dragan 15.0 H (11.5-14.5) % MPV 9.1 L (9.4-12.4) fL [place] # (Auto) 0.86 H (0.11-0.59) K/uL Glucose 131 H (70-99(Fasting)) mg/dl POC Glucose 136 H (70-99) mg/dl Globulin 2.3 L (2.5-4.0) gm/dl Triglycerides 164 H (0-150) mg/dl VLDL Cholesterol, Calc 33 H (0-30) mg/dl Diagnostic Findings Head CT 04/25/24 20:51 CR Exam(s): CT HEAD Without Contrast EXAM: CT Head Without Intravenous Contrast CLINICAL HISTORY: Reason for exam: neuro deficit, acute stroke suspected. TECHNIQUE: Axial computed tomography images of the head/brain without intravenous contrast. CTDI is 63 mGy and DLP is 961 mGy-cm. Automated exposure control was utilized for the study. A dose lowering technique was utilized adhering to the principles of ALARA. COMPARISON: Head CT 11/23/22. FINDINGS: Brain: No mass effect or acute infarct. No acute hemorrhage. Mild atrophy and chronic white matter disease, stable. Ventricles: No hydrocephalus or midline shift. Bones/joints: No acute finding. Soft tissues: No scalp hematoma. Visualized Sinuses: Clear. Mastoid air cells: No mastoid effusion. IMPRESSION: 1. Stable age-related findings. 2. No acute infarct, bleed, or acute intracranial abnormality. Communications: Call Doctor Stroke Electronically signed by: Holli David M.D. 04/25/24 21:22 PM Head CTA 04/25/24 20:51 CR Exam(s): CTA HEAD With Contrast IV Amt: 116 ML OPTIRAY 320 EXAM: CT Angiography Head With Intravenous Contrast CLINICAL HISTORY: Reason for exam: neuro deficit, acute stroke suspected. TECHNIQUE: Axial computed tomographic angiography images of the head with intravenous contrast. CTDI is 63 mGy and DLP is 961 mGy-cm. Automated exposure control was utilized for the study. A dose lowering technique was utilized adhering to the principles of ALARA. MIP reconstructed images were created and reviewed. Venous contamination. CONTRAST: Patient received 116 ML OPTIRAY 320 of IV contrast COMPARISON: Head CT done earlier. FINDINGS: Right internal carotid artery: Patent. Right anterior cerebral artery: Patent. Right middle cerebral artery: Patent. Right posterior cerebral artery: Patent. Right vertebral artery: Patent. Left internal carotid artery: Patent. Left anterior cerebral artery: Patent. Left middle cerebral artery: Patent. Left posterior cerebral artery: Patent. Left vertebral artery: Patent. Basilar artery: Patent. Other: Mild atherosclerosis bilateral cavernous ICA, without significant stenosis. Patent dural venous sinuses. IMPRESSION: 1. No aneurysm or large vessel occlusion. Communications: Call Doctor Stroke Electronically signed by: Holli David M.D. 04/25/24 21:22 PM Neck CTA 04/25/24 20:51 CR Exam(s): CTA NECK With Contrast IV Amt: 116 ML OPTIRAY 320 EXAM: CT Angiography Neck With Intravenous Contrast CLINICAL HISTORY: Reason for exam: neuro deficit, acute stroke suspected. TECHNIQUE: Routine carotid CT angiography protocol was performed with intravenous contrast. NASCET criteria using the distal ICAs for comparison were used for evaluation of stenoses. CTDI is 63 mGy and DLP is 961 mGy-cm. Automated exposure control was utilized for the study. A dose lowering technique was utilized adhering to the principles of ALARA. MIP reconstructed images were created and reviewed. Mild external metal and shoulder artifact. CONTRAST: Patient received 116 ML OPTIRAY 320 of IV contrast COMPARISON: None. FINDINGS: Right common carotid artery: Patent. Right internal carotid artery: Patent. Right vertebral artery: Patent. Slight right dominant system. Left common carotid artery: Patent. Left internal carotid artery: Patent. Left vertebral artery: Patent. Other: Moderate dense atherosclerotic calcification bilateral bifurcation, without significant stenosis. Mild aortic atherosclerosis. IMPRESSION: 1. No dissection, occlusion, or significant stenosis. CAROTID STENOSIS REFERENCE USING NASCET CRITERIA: % ICA stenosis = (1 - narrowest ICA diameter/diameter of distal cervical ICA) x 100. Mild - <50% stenosis. Moderate - 50-69% stenosis. Severe - 70-94% stenosis. Near occlusion - 95-99% stenosis. Occluded - 100% stenosis. Communications: Call Doctor Stroke Electronically signed by: Holli David M.D. 04/25/24 21:21 PM Brain MRI 04/25/24 22:03 Exam(s): MRI HEAD Without Contrast EXAM: MR Head Without Intravenous Contrast CLINICAL HISTORY: Reason for exam: tia. TECHNIQUE: Magnetic resonance images of the head/brain without intravenous contrast in multiple planes. COMPARISON: No relevant prior studies available. FINDINGS: No acute territorial infarct. No acute intracranial hemorrhage. No midline shift or mass effect. The territorial hilliard-white matter differentiation is maintained throughout. Age-related cerebral volume loss. Periventricular and subcortical white matter T2 signal intensity, consistent with chronic microangiopathy. The visualized orbits appear grossly unremarkable. The calvarium is intact. Small mucous retention cyst in the LEFT maxillary sinus. IMPRESSION: No acute territorial infarct. No acute intracranial hemorrhage. No midline shift or mass effect. Electronically signed by: Dany Crowe MD 04/26/24 01:25 AM Medications Administered Home Medications Medication Instructions Recorded Confirmed Last Taken aspirin 81 mg tablet,delayed 81 mg PO QDD 08/13/18 04/21/24 04/20/24 release (Nga Low Dose Aspirin) atorvastatin 80 mg tablet 80 mg PO HS 08/13/18 04/21/24 04/20/24 fexofenadine 180 mg tablet 180 mg PO QDD 08/13/18 04/21/24 04/20/24 fluticasone propionate 50 2 spray intranasal QAM 08/13/18 04/21/24 04/21/24 mcg/actuation nasal spray,suspension (Flonase Allergy Relief) lisinopril 20 mg tablet 20 mg PO QPM 08/13/18 04/21/24 04/20/24 magnesium 250 mg tablet 250 mg PO QDD 08/13/18 04/21/24 04/20/24 multivitamin 1 tab PO QAM 08/13/18 04/21/24 04/21/24 omega 8-xkl-flk-fish oil 1,000 mg 1 cap PO DAILY 08/13/18 04/21/24 04/21/24 (120 mg-180 mg) capsule (Fish Oil) potassium gluconate 550 mg (90 mg) 550 mg PO QDD 08/13/18 04/21/24 04/20/24 tablet diclofenac sodium 1 % topical gel 1 g topical QID 02/10/24 04/21/24 04/21/24 (Voltaren Arthritis Pain) esomeprazole magnesium 20 mg 20 mg PO DAILYBB 02/10/24 04/21/24 04/21/24 capsule,delayed release (Nexium) semaglutide 7 mg tablet (Rybelsus) 7 mg PO QAM 02/10/24 04/21/24 04/21/24 vit C 250 mg-vit E 90 mg-zinc 40 1 tab PO BID 02/10/24 04/21/24 04/21/24 mg-copper 1 gd-mxucdl-hxplxp capsule (PreserVision AREDS-2) gabapentin 100 mg capsule 100 mg PO HS #30 caps 02/12/24 04/21/24 04/20/24 metoprolol succinate 25 mg 12.5 mg (1/2 x 25 mg) PO QAM #30 02/12/24 04/21/24 04/21/24 tablet,extended release 24 hr tabs clopidogrel 75 mg tablet 75 mg PO QAM 04/21/24 04/21/24 04/21/24 ezetimibe 10 mg tablet 10 mg PO QAM 04/21/24 04/21/24 04/21/24 isosorbide mononitrate 30 mg 15 mg PO QAM 04/21/24 04/21/24 04/21/24 tablet,extended release 24 hr metformin 1,000 mg tablet 1,000 mg PO BIDWMEAL 04/21/24 04/21/24 04/21/24 montelukast 10 mg tablet 10 mg PO QAM 04/21/24 04/21/24 04/21/24 Active Medications Generic Name Dose Route Start Last Admin Trade Name Freq PRN Reason Stop Dose Admin Acetaminophen 650 mg 04/21/24 18:39 04/24/24 20:30 Acetaminophen 325 Mg Tab PO 05/21/24 18:38 650 mg Q4H PRN Administration pain/fever Aspirin 81 mg 04/25/24 16:30 04/25/24 16:19 Aspirin 81 Mg Ectab PO 05/25/24 16:29 81 mg QDD KAREN Administration Atorvastatin Calcium 80 mg 04/21/24 21:00 04/25/24 22:43 Atorvastatin 40 Mg Tab PO 05/21/24 20:59 80 mg HS KAREN Administration Cholestyramine Resin 4 gm 04/23/24 18:03 04/26/24 08:49 Cholestyramine Light 4 Gm Pkt PO 05/23/24 18:02 4 gm BID PRN Administration diarrhea Clopidogrel Bisulfate 75 mg 04/22/24 09:00 04/26/24 08:51 Clopidogrel Bisulfate 75 Mg Tab PO 05/22/24 08:59 75 mg QAM KAREN Administration Ezetimibe 10 mg 04/22/24 09:00 04/26/24 08:50 Ezetimibe 10 Mg Tab PO 05/22/24 08:59 10 mg QAM KAREN Administration Fexofenadine HCl 180 mg 04/22/24 16:30 04/25/24 16:19 Fexofenadine Hcl 180 Mg Tab PO 05/22/24 16:29 180 mg QDD KAREN Administration Fish Oil 1 gm 04/22/24 09:00 04/26/24 08:51 [place]-3 (Purified Fish Oil) 1 Gm Cap PO 05/22/24 08:59 1 gm DAILY KAREN Administration Fluticasone Propionate 2 sprays 04/22/24 09:00 04/26/24 08:52 Fluticasone Propionate Na Spr 16 Gm Btl NA 05/22/24 08:59 2 sprays QAM KAREN Administration Gabapentin 100 mg 04/21/24 21:00 04/25/24 22:42 Gabapentin 100 Mg Cap PO 05/21/24 20:59 100 mg HS KAREN Administration Hydromorphone HCl 1 mg 04/21/24 22:52 04/23/24 00:23 Hydromorphone Inj 1 Mg/Ml Syringe IV 05/05/24 22:51 1 mg Q4H PRN Administration Pain Sodium Chloride 1,000 mls @ 60 mls/hr 04/25/24 21:02 04/25/24 23:05 Nss IV 04/26/24 13:41 60 mls/hr .[id number] Administration Insulin Aspart 0 units 04/23/24 21:00 04/26/24 10:02 Insulin Aspart Per Unit Charge SC 05/23/24 20:59 10 units ACHS KAREN Administration Lisinopril 20 mg 04/21/24 21:00 04/23/24 20:33 Lisinopril 20 Mg Tab PO 05/21/24 20:59 20 mg QPM KAREN Administration Melatonin 6 mg 04/22/24 02:45 04/25/24 22:41 Melatonin 3 Mg Tab PO 05/22/24 02:44 6 mg HS PRN Administration Sleep Metoprolol Succinate 12.5 mg 04/22/24 09:00 04/26/24 08:51 Metoprolol Succ 25mg Ext Rel Tab PO 05/22/24 08:59 12.5 mg QAM KAREN Administration Montelukast Sodium 10 mg 04/22/24 09:00 04/26/24 08:50 Montelukast Sodium 10 Mg Tablet PO 05/22/24 08:59 10 mg QAM KAREN Administration Multivitamins 1 tab 04/22/24 09:00 04/26/24 08:49 Multivitamin Tab PO 05/22/24 08:59 1 tab QAM KAREN Administration Oxycodone HCl 5 - 10 mg 04/21/24 22:52 04/25/24 22:40 Oxycodone Hcl Ir 5 Mg Tab (Immediate Release) PO 05/05/24 22:51 10 mg QID PRN Administration Pain Pantoprazole Sodium 40 mg 04/23/24 21:00 04/26/24 10:02 Pantoprazole 40 Mg Tab PO 05/23/24 20:59 40 mg BID KAREN Administration
--- NOTE | 2024-04-26 16:20 | Hospitalist Progress Note ---
Date of Service April 26, 2024 Assessment & Plan (1) Chest pain: (2) Blood in stool: Plan Almas Pack is a 68y/o M with PMHx of DM type II, dyslipidemia, HTN, CAD s/p PCI of the LAD using a single AMY [02/11/2024], osteoarthritis and other problems listed below who presented to the ED for evaluation secondary to chest pain and bloody diarrhea. Most recent confinement 02/09 to 02/11 here at [facility]. Presented with complaints of epigastric and chest pain radiating down both arms. EKG demonstrated normal sinus rhythm without ischemic changes. High sensitivity troponin was negative x 3. Patient subsequently underwent dobutamine stress echocardiogram which was positive for inferior wall ischemia. He also had sustained VT with dobutamine infusion. Patient was subsequently sent for diagnostic cardiac catheterization revealing 100% [employer]ING [employer] of the RCA and 80% mid LAD lesion treated with 1 AMY. Patient was ultimately placed on dual antiplatelet therapy. Chest Pain CAD s/p Stent Placement Pt was at cardiac rehab this morning, complaining of some chest pain and had to subsequently stop exercising. Notes his chest pain has significantly improved since stent placement back in January, but he is still experiencing ongoing fatigue and episodes of worsening chest pain with some associated SOB. Troponin negative, EKG without ischemic changes CXR negative Echo with EF 60-65%, mild LVH and inferior wall hypokinesis Cardiology consulted, appreciate recs. Noted/Stated the following: "68-year-old male admitted secondary to bright red blood per rectum. Colonoscopy demonstrating possible infectious colitis. No recurrent bright red blood per rectum overnight. Hemoglobin remained stable. Resume dual antiplatelet therapy. Repeat CBC in approximately 1 week. No further inpatient cardiac testing or intervention recommended at this time. Per Cardiology "Chronic chest discomfort noted without evidence of acute coronary syndrome. Repeat echocardiogram with stable findings, preserved LV systolic function. " Continue patient's Plavix and aspirin after aspirin was previously held Continue statin EKG for chest pain PRN. Continue to monitor on telemetry Hematochezia Possible GI Bleed Norovirus infection ETEC infection Patient has had increased BRBPR since he was started on dual antiplatelet therapy according to recent [facility] documentation. He was previously on ASA and Brilinta following his discharge in January, but was transitioned to ASA and Plavix on 04/16 during his appointment with [facility] at [facility]. Hgb was stable at that time. He had mentioned to staff at cardiac rehab that he was still experiencing rectal bleeding even after being switched from Brilinta to Plavix. Dr. Daniel from [facility] recommended the patient be admitted to the hospital for further workup of his GI bleeding. Hgb down trended from 13.1 on 04/15 to 11.7 on admission in the ED CT abd/pelvis noting colitis Follow H/H PPI GI consulted, appreciate recs -IV PPI -stool studies, c diff -scope after cardiology workup/clearance Stool studies positive for ETEC and norovirus c diff negative Started on azithromycin 500mg x 3 doses for ETEC s/p EGD and flex sig with GI on 04/23 -EGD unremarkable, advised Carafate for GERD if worsening -Flex sig noting infectious colitis changes (biopsied) and internal hemorrhoids. Advised use of cholestyramine (NOT IMODIUM) for diarrhea. Improving Dizziness Noted on 04/24 after multiple BMs orthostat vitals ordered, not indicative of orthostatic hypotension push po fluids Continue with cholestyramine and Azithromycin course to help control diarrhea Cardiology contacted on 04/25- advised no further cardiac changes IV fluids Continue to monitor Blurry Vision concern for stroke overnight on 04/[address], Head and neck CTA and brain MRI all unremarkable Neurology was consulted, appreciate recs Bilateral Calf Pain: Patient complaining of bilateral calf pain on admission Venous duplex US of bilateral lower extremities with no DVT DM Type II: 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 BSG checks ACHS, Hgb A1c in AM - follow. HTN: Stable, continue home medications. Dyslipidemia: Stable, continue home medications. DVT Prophylaxis: SCDs/teds- Chemical DVT prophylaxis contraindicated secondary to GI bleeding. Code Status: FULL CODE PCP: Alonso Daigle MD Disposition: PT/OT recommending return home Admission and Anticipated Discharge Date Admission Date: April 21, 2024 Subjective Pt was seen in AM. States that he had an episode of bloody BM this AM. Overnight there was concern for stroke. imaging did not confirm. Review of Systems Review of Systems: All systems reviewed & are unremarkable except as noted in Subjective Physical Exam Physical Exam: General: Alert, oriented. No acute distress Skin: No noted rashes or bruises Psych: Appropriate mood and affect HEENT: NC/AT CV: RRR Resp: Breath sounds clear bilaterally, no increased effort of breathing Abdomen: Soft, tender R abdomen Extremities: edema in lower extremities bilaterally. Results & Data Results & Data Vital Signs (Past 12 Hours) Vital Signs Temp Pulse Pulse Resp BP BP Pulse Ox 04/26/24 15:18 36.7 C 69 17 152/69 H 96 04/26/24 14:27 78 04/26/24 11:14 36.8 C 73 18 135/73 93 04/26/24 07:36 36.6 C 65 16 144/73 H 96 04/26/24 07:25 62 O2 Del Method 04/26/24 15:18 Room Air 04/26/24 14:27 04/26/24 11:14 Room Air 04/26/24 07:36 Room Air 04/26/24 07:25 (1) Chest pain Chest pain type: unspecified Qualified Code(s): R07.9 - Chest pain, unspecified
[2024-04-27 06:47] LABS: Basophils # (auto) 0.07 K/uL (0.00-0.20); Basophils % (auto) 0.8 %; Eosinophils # (auto) 0.18 K/uL (0.00-0.50); Eosinophils % (auto) 2.1 %; Hematocrit (blood only) 35.8 % (42.0-52.0); Hemoglobin 12.1 g/dl (14.0-18.0); Immature Granulocytes # (auto) 0.03 K/uL (0.01-0.20); Immature Granulocytes % (auto) 0.3 %; Lymphocytes # (auto) 1.65 K/uL (1.20-3.40); Lymphocytes % (auto) 18.9 %; Mean Corpuscular Hemoglobin 28.3 pg (25.0-34.0); Mean Corpuscular Hgb Conc 33.8 g/dL (32.0-36.0); Mean Corpuscular Volume 83.8 fL (80.0-100.0); Mean Platelet Volume 9.2 fL (9.4-12.4); Monocytes # (auto) 1.22 K/uL (0.11-0.59); Neutrophils # (auto) 5.59 K/uL (1.40-6.50); Neutrophils % (auto) 63.9 %; Platelet Count 253 K/uL (130-400); RDW Standard Deviation 45.1 fL (36.4-46.3); Red Blood Count 4.27 M/uL (4.70-6.10); White Blood Count 8.74 K/ul (4.8-10.8)
[2024-04-27 07:15] LABS: Albumin Globulin Ratio 1.7 (0.9-2); BUN Creatinine Ratio 13.6 (10-20); Bilirubin,Total 1.1 mg/dl (0.2-1.0); Calcium 9.1 mg/dl (8.6-10.3); Creatinine Clr Calc Pharmacy 84.3 ml/min; Est GFR (African American) 86.7 ml/min; Est GFR (Non-African American) 74.8 ml/min; Globulin 2.4 gm/dl (2.5-4.0); Magnesium 1.9 mg/dl (1.7-2.4); Phosphorus 3.9 mg/dl (2.5-4.9); Potassium 4.2 mmol/L (3.5-5.1); Total Protein 6.4 gm/dl (6.0-8.3)
[2024-04-27 07:23] VITALS: RESP 18
[2024-04-27 11:40] VITALS: TEMP 98.1; O2SAT 93
--- NOTE | 2024-04-27 13:52 | Discharge Summary ---
Discharge Summary Date of Service April 27, 2024 Principal Dx & Hospital Course #1 = Principal Diagnosis (1) Chest pain: (2) Blood in stool: (3) Enterotoxigenic Escherichia coli infection: (4) Ambulatory dysfunction: Plan Almas Pack is a 68y/o M with PMHx of DM type II, dyslipidemia, HTN, CAD s/p PCI of the LAD using a single AMY [02/11/2024], osteoarthritis and other problems listed below who presented to the ED for evaluation secondary to chest pain and bloody diarrhea. Most recent confinement 02/09 to 02/11 here at [facility]. Presented with complaints of epigastric and chest pain radiating down both arms. EKG demonstrated normal sinus rhythm without ischemic changes. High sensitivity troponin was negative x 3. Patient subsequently underwent dobutamine stress echocardiogram which was positive for inferior wall ischemia. He also had sustained VT with dobutamine infusion. Patient was subsequently sent for diagnostic cardiac catheterization revealing 100% occlusion of the RCA and 80% mid LAD lesion treated with 1 AMY. Patient was ultimately placed on dual antiplatelet therapy. Chest Pain CAD s/p Stent Placement Pt was at cardiac rehab on day of admission, complaining of some chest pain and had to subsequently stop exercising. Notes his chest pain has significantly improved since stent placement back in January, but he is still experiencing ongoing fatigue and episodes of worsening chest pain with some associated SOB. Troponin negative, EKG without ischemic changes CXR negative Echo with EF 60-65%, mild LVH and inferior wall hypokinesis Cardiology consulted, appreciate recs. Noted/Stated the following: "68-year-old male admitted secondary to bright red blood per rectum. Colonoscopy demonstrating possible infectious colitis. No recurrent bright red blood per rectum overnight. Hemoglobin remained stable. Resume dual antiplatelet therapy. Repeat CBC in approximately 1 week. No further inpatient cardiac testing or intervention recommended at this t cheng. Per Cardiology "Chronic chest discomfort noted without evidence of acute coronary syndrome. Repeat echocardiogram with stable findings, preserved LV systolic function. " Continue patient's Plavix and aspirin after aspirin was previously held on admission Continue statin Monitored on telemetry with no acute events. Discharged in stable condition. Please ensure close Cardiology followup. Hematochezia Possible GI Bleed Norovirus infection ETEC infection Patient has had increased BRBPR since he was started on dual antiplatelet t herapy according to recent [facility] documentation. He was previously on ASA and Brilinta following his discharge in January, but was transitioned to ASA and Plavix on 04/16 during his appointment with [facility] at [facility]. Hgb was stable at that time. He had mentioned to staff at cardiac rehab that he was still experiencing rectal bleeding even after being switched from Brilinta to Plavix. Dr. Daniel from [facility] recommended the patient be admitted to the hospital for further workup of his GI bleeding. Hgb down trended from 13.1 on 04/15 to 11.7 on admission in the ED CT abd/pelvis noting colitis GI was consulted, recommended the following: "-IV PPI -stool studies, c diff -scope after cardiology workup/clearance" Stool studies were positive for ETEC and norovirus infection c diff negative Started on azithromycin 500mg x 3 doses for ETEC, completed while hospitalized s/p EGD and flex sig with GI while hospitalized on 04/23 -EGD unremarkable, advised Carafate for GERD if worsening -Flex sig noting infectious colitis changes (biopsied) and internal hemorrhoids. Advised use of cholestyramine (NOT IMODIUM) for diarrhea. Pt stable and improved on day of discharge. No further episodes of BRBPR, BMs regular. Please ensure close GI followup after discharge Dizziness Noted on 04/24 after multiple BMs orthostat vitals ordered, not indicative of orthostatic hypotension Treated with cholestyramine and Azithromycin course to help control diarrhea Cardiology contacted on 04/25 for further recs- advised no further cardiac changes IV fluids Stable on discharge. PCP follow up. 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 BSG checks ACHS, Hgb A1c 6.5 HTN: Stable, continue home medications. Dyslipidemia: Stable, continue home medications. Notes For Next Care Provider per neurology, consider Zio patch on discharge Medication Changes From Visit D/c Imdur Admission HPI Per Admitting Provider Almas Pack is a 68y/o M with PMHx of DM type II, dyslipidemia, HTN, CAD s/p PCI of the LAD using a single AMY [02/11/2024], osteoarthritis and other problems listed below who presented to the ED for evaluation secondary to chest pain and bloody diarrhea. History obtained from patient, at bedside and associated chart review. Most recent confinement 02/09 to 02/11 here at [facility]. Presented with complaints of epigastric and chest pain radiating down both arms. EKG demonstrated normal sinus rhythm without ischemic changes. High sensitivity troponin was negative x 3. Patient subsequently underwent dobutamine stress echocardiogram which was positive for inferior wall ischemia. He also had sustained VT with dobutamine infusion. Patient was subsequently sent for diagnostic cardiac catheterization revealing 100% [employer] of the RCA and 80% mid LAD lesion treated with 1 AMY. Patient was ultimately placed on dual antiplatelet therapy, which is to be continued for a minimum of 6 months s/p percutaneous intervention. Patient has had increased to BRBPR since he was started on dual antiplatelet therapy according to recent [facility] documentation. He was previously on ASA and Brilinta following his discharge in January, but was transition to ASA and Plavix on 04/16 during his appointment with [facility] at [facility]. Hemoglobin had remained stable at that time. Patient also with ongoing chest pain. Notes his chest pain has significantly improved since stent placement back in January, but he is still experiencing ongoing fatigue and episodes of chest pain with some associated shortness of breath. He was at cardiac rehab this morning and was complaining of some chest pain and had to subsequently stop exercising. He also mentioned to staff at cardiac rehab that he was still experiencing rectal bleeding even after being switched from Venus linta to Plavix. Patient has not tried nitro at home. Dr. Daniel from [facility] recommended the patient be admitted to the hospital for further workup of his GI bleeding. His hemoglobin level has slightly down trended from 13.1 on 04/15 to 11.7 today in the ED. He also had a CBC performed earlier today (ordered by cardiology) prior to arrival at the ED that revealed a hemoglobin level of 12.3 this morning. He became rather lightheaded and dizzy while getting his blood drawn this morning as well. Describes the chest pain episodes as feeling more of a chest pressure versus sharp/stabbing pain. Reports that he has chest pain all of the time, but experiences episodes where he feels more severe. He constantly feels lightheaded and dizzy when he is up and moving around. Patient has had significant amount of diarrhea since his stent was placed back in January. Reports that he notices blood in his stool with every bowel movement. Has multiple episodes of diarrhea per day. His appetite is significantly decreased, but he has been hydrating appropriately. Admission Exam Per Admitting Provider General: WD/WN, vitals as above, NAD, sitting up in bed, conversing appropriately, somewhat diaphoretic but stable. A+Ox3, euthymic affect. HEENT: Normocephalic, atraumatic. PERRL, conjunctivae normal, anicteric sclerae. External ear and nose normal, oropharynx normal. Respiratory: Normal respiratory effort, lungs clear to auscultation, no wheeze, rales, rhonchi. No accessory muscle use. Cardiovascular: Regular rate, rhythm, no murmur, normal peripheral pulses, BLE edema not but not pitting. Vessels: No JVD. Abdomen/GI: Normal bowel sounds, soft, nontender, no hepatosplenomegaly, quite distended. Extremities/Musculoskeletal: No cyanosis or clubbing, extremities motor strength intact, moves all extremities. Neurologic: EOMI, accommodation nl, no face palsy, no dysarthria, CN's II-XI not formally tested but appear grossly intact bilaterally. Skin: No rashes, normal color, warm/dry. Discharge Exam General: Alert, oriented. No acute distress Skin: No noted rashes or bruises Psych: Appropriate mood and affect HEENT: NC/AT CV: RRR Resp: Breath sounds clear bilaterally, no increased effort of breathing Abdomen: Soft, improving tender R abdomen Extremities: edema in lower extremities bilaterally. Updated Medication List Medication Instructions Recorded Confirmed Type aspirin 81 mg tablet,delayed 81 mg PO QDD 08/13/18 04/21/24 History release (Nga Low Dose Aspirin) atorvastatin 80 mg tablet 80 mg PO HS 08/13/18 04/21/24 History fexofenadine 180 mg tablet 180 mg PO QDD 08/13/18 04/21/24 History fluticasone propionate 50 2 spray intranasal QAM 08/13/18 04/21/24 History mcg/actuation nasal spray,suspension (Flonase Allergy Relief) lisinopril 20 mg tablet 20 mg PO QPM 08/13/18 04/21/24 History magnesium 250 mg tablet 250 mg PO QDD 08/13/18 04/21/24 History multivitamin 1 tab PO QAM 08/13/18 04/21/24 History omega 2-rld-blq-fish oil 1,000 mg 1 cap PO DAILY 08/13/18 04/21/24 History (120 mg-180 mg) capsule (Fish Oil) potassium gluconate 550 mg (90 mg) 550 mg PO QDD 08/13/18 04/21/24 History tablet diclofenac sodium 1 % topical gel 1 g topical QID 02/10/24 04/21/24 History (Voltaren Arthritis Pain) esomeprazole magnesium 20 mg 20 mg PO DAILYBB 02/10/24 04/21/24 History capsule,delayed release (Nexium) semaglutide 7 mg tablet (Rybelsus) 7 mg PO QAM 02/10/24 04/21/24 History vit C 250 mg-vit E 90 mg-zinc 40 1 tab PO BID 02/10/24 04/21/24 History mg-copper 1 mk-vajwgq-ukvrbn capsule (PreserVision AREDS-2) gabapentin 100 mg capsule 100 mg PO HS #30 caps 02/12/24 04/21/24 Rx metoprolol succinate 25 mg 12.5 mg (1/2 x 25 mg) PO QAM #30 02/12/24 04/21/24 Rx tablet,extended release 24 hr tabs clopidogrel 75 mg tablet 75 mg PO QAM 04/21/24 04/21/24 History ezetimibe 10 mg tablet 10 mg PO QAM 04/21/24 04/21/24 History metformin 1,000 mg tablet 1,000 mg PO BIDWMEAL 04/21/24 04/21/24 History montelukast 10 mg tablet 10 mg PO QAM 04/21/24 04/21/24 History pantoprazole 40 mg tablet,delayed 40 mg PO BID #60 tabs 04/27/24 Rx release Hospital Stay Data Consultations 04/21/24 16:14 ED Decision to Admit Stat 04/21/24 16:38 Consult Cardiology Routine Consult Gastroenterology Routine 04/25/24 22:03 Consult Neurology Routine Procedures Performed Operation Date: 04/23/24 17:55 Actual Procedures p Esophagogastroduodenoscopy - Luis Jacob MD s Colonoscopy Biopsy Cytology - Luis Jacob MD Diagnostic Imagining Performed 04/21/24 17:54 US venous duplex leg [US venous doppler LE BI] Stat 04/21/24 18:19 CT Abd and Pelvis [CT abd pelvis wo con] Stat 04/25/24 20:51 CT angio head w con Stat CT angio neck with con Stat CT head/brain wo con Stat 04/25/24 22:03 MR brain wo con Routine Chest X-Ray 04/21/24 14:37 XR chest 1V portable HISTORY: chest pain COMPARISON: Chest 02/10/2024. FINDINGS: No pneumothorax. No pleural effusions. A few bibasilar linear densities favor subsegmental atelectasis or scarring. No new focal lung consolidations to suggest a pneumonia. No evidence for pulmonary edema. The heart is mildly enlarged. Stable prominence of the central pulmonary arteries. Calcifications within the aortic knob. No acute fractures. IMPRESSION: No acute process. ACT 112: Negative or not required by law. Electronically signed by: Kulwant Martinez M.D. 04/21/2024 3:52 PM Venous Doppler Study 04/21/24 17:54 Exam(s): US VENOUS BILATERAL LOWER EXTREMITIES EXAM: US Duplex Bilateral Lower Extremities Veins CLINICAL HISTORY: Reason for exam: B/l calf tenderness. TECHNIQUE: Real-time duplex ultrasound scan of the bilateral lower extremity veins integrating B-mode two-dimensional vascular structure, Doppler spectral analysis, color flow Doppler imaging and compression. COMPARISON: No relevant prior studies available. FINDINGS: Right deep veins: Unremarkable. The visualized deep veins of the right lower extremity are compressible with color flow. No visualized thrombus. Right superficial veins: Unremarkable. Left deep veins: Unremarkable. The visualized deep veins of the left lower extremity are compressible with color flow. No visualized thrombus. Left superficial veins: Unremarkable. Soft tissues: No acute findings. IMPRESSION: No DVT within the bilateral lower extremities. Electronically signed by: Ketan Torres MD 04/21/24 20:13 PM Abdomen/Pelvis CT 04/21/24 18:19 Exam(s): CT ABDOMEN + PELVIS Without Contrast EXAM: CT Abdomen and Pelvis Without Intravenous Contrast CLINICAL HISTORY: Reason for exam: Rectal bleeding, abd pain. TECHNIQUE: Axial computed tomography images of the abdomen and pelvis without intravenous contrast. CTDI is 27.58 mGy and DLP is 1381.06 mGy-cm. Automated exposure control was utilized for the study. A dose lowering technique was utilized adhering to the principles of ALARA. COMPARISON: 08/01/2023 FINDINGS: ABDOMEN: Liver: Unremarkable. Gallbladder and bile ducts: Cholelithiasis without acute cholecystitis. Pancreas: Unremarkable. Spleen: Unremarkable. Adrenals: Unremarkable. Kidneys and ureters: Unremarkable. No obstructing stones. No hydronephrosis. Stomach and bowel: Mild colonic mucosal thickening consistent with mild nonspecific colitis. PELVIS: Appendix: No findings to suggest acute appendicitis. Bladder: Unremarkable. Reproductive: Unremarkable as visualized. ABDOMEN and PELVIS: Intraperitoneal space: Unremarkable. No free air. No significant fluid collection. Bones/joints: Degenerative changes in the lumbar spine. Soft tissues: Unremarkable. Vasculature: Aortobiiliac atherosclerotic calcifications. Lymph nodes: Unremarkable. IMPRESSION: Mild colonic mucosal thickening consistent with mild nonspecific colitis. Electronically signed by: Ketan Torres MD 04/21/24 19:31 PM KUB X-Ray 04/25/24 10:36 KUB HISTORY: Generalized abdominal pain. Nausea. COMPARISON: KUB 02/10/2024. FINDINGS: The bowel gas pattern is unremarkable. There are no dilated loops of small bowel to suggest an obstruction. No renal calculi. No ureteral calculi. Calcifications in the deep pelvis likely represent phleboliths. These remain unchanged. No pneumoperitoneum or pneumatosis. Moderate fecal retention. Cholelithiasis again noted. IMPRESSION: 1. Nonobstructive bowel gas pattern. 2. Moderate fecal retention. 3. Cholelithiasis again noted. ACT 112: Negative or not required by law. Electronically signed by: Kulwant Martinez M.D. 04/25/2024 11:[address] 04/25/24 20:51 CR Exam(s): CT HEAD Without Contrast EXAM: CT Head Without Intravenous Contrast CLINICAL HISTORY: Reason for exam: neuro deficit, acute stroke suspected. TECHNIQUE: Axial computed tomography images of the head/brain without intravenous contrast. CTDI is 63 mGy and DLP is 961 mGy-cm. Automated exposure control was utilized for the study. A dose lowering technique was utilized adhering to the principles of ALARA. COMPARISON: Head CT 11/23/22. FINDINGS: Brain: No mass effect or acute infarct. No acute hemorrhage. Mild atrophy and chronic white matter disease, stable. Ventricles: No hydrocephalus or midline shift. Bones/joints: No acute finding. Soft tissues: No scalp hematoma. Visualized Sinuses: Clear. Mastoid air cells: No mastoid effusion. IMPRESSION: 1. Stable age-related findings. 2. No acute infarct, bleed, or acute intracranial abnormality. Communications: Call Doctor Stroke Electronically signed by: Holli David M.D. 04/25/24 21:22 PM Head CTA 04/25/24 20:51 CR Exam(s): CTA HEAD With Contrast IV Amt: 116 ML OPTIRAY 320 EXAM: CT Angiography Head With Intravenous Contrast CLINICAL HISTORY: Reason for exam: neuro deficit, acute stroke suspected. TECHNIQUE: Axial computed tomographic angiography images of the head with intravenous contrast. CTDI is 63 mGy and DLP is 961 mGy-cm. Automated exposure control was utilized for the study. A dose lowering technique was utilized adhering to the principles of ALARA. MIP reconstructed images were created and reviewed. Venous contamination. CONTRAST: Patient received 116 ML OPTIRAY 320 of IV contrast COMPARISON: Head CT done earlier. FINDINGS: Right internal carotid artery: Patent. Right anterior cerebral artery: Patent. Right middle cerebral artery: Patent. Right posterior cerebral artery: Patent. Right vertebral artery: Patent. Left internal carotid artery: Patent. Left anterior cerebral artery: Patent. Left middle cerebral artery: Patent. Left posterior cerebral artery: Patent. Left vertebral artery: Patent. Basilar artery: Patent. Other: Mild atherosclerosis bilateral cavernous ICA, without significant stenosis. Patent dural venous sinuses. IMPRESSION: 1. No aneurysm or large vessel occlusion. Communications: Call Doctor Stroke Electronically signed by: Holli David M.D. 04/25/24 21:22 PM Neck CTA 04/25/24 20:51 CR Exam(s): CTA NECK With Contrast IV Amt: 116 ML OPTIRAY 320 EXAM: CT Angiography Neck With Intravenous Contrast CLINICAL HISTORY: Reason for exam: neuro deficit, acute stroke suspected. TECHNIQUE: Routine carotid CT angiography protocol was performed with intravenous contrast. NASCET criteria using the distal ICAs for comparison were used for evaluation of stenoses. CTDI is 63 mGy and DLP is 961 mGy-cm. Automated exposure control was utilized for the study. A dose lowering technique was utilized adhering to the principles of ALARA. MIP reconstructed images were created and reviewed. Mild external metal and shoulder artifact. CONTRAST: Patient received 116 ML OPTIRAY 320 of IV contrast COMPARISON: None. FINDINGS: Right common carotid artery: Patent. Right internal carotid artery: Patent. Right vertebral artery: Patent. Slight right dominant system. Left common carotid artery: Patent. Left internal carotid artery: Patent. Left vertebral artery: Patent. Other: Moderate dense atherosclerotic calcification bilateral bifurcation, without significant stenosis. Mild aortic atherosclerosis. IMPRESSION: 1. No dissection, occlusion, or significant stenosis. CAROTID STENOSIS REFERENCE USING NASCET CRITERIA: % ICA stenosis = (1 - narrowest ICA diameter/diameter of distal cervical ICA) x 100. Mild - <50% stenosis. Moderate - 50-69% stenosis. Severe - 70-94% stenosis. Near occlusion - 95-99% stenosis. Occluded - 100% stenosis. Communications: Call Doctor Stroke Electronically signed by: Holli David M.D. 04/25/24 21:21 PM Brain MRI 04/25/24 22:03 Exam(s): MRI HEAD Without Contrast EXAM: MR Head Without Intravenous Contrast CLINICAL HISTORY: Reason for exam: tia. TECHNIQUE: Magnetic resonance images of the head/brain without intravenous contrast in multiple planes. COMPARISON: No relevant prior studies available. FINDINGS: No acute territorial infarct. No acute intracranial hemorrhage. No midline shift or mass effect. The territorial hilliard-white matter differentiation is maintained throughout. Age-related cerebral volume loss. Periventricular and subcortical white matter T2 signal intensity, consistent with chronic microangiopathy. The visualized orbits appear grossly unremarkable. The calvarium is intact. Small mucous retention cyst in the LEFT maxillary sinus. IMPRESSION: No acute territorial infarct. No acute intracranial hemorrhage. No midline shift or mass effect. Electronically signed by: Dany Crowe MD 04/26/24 01:25 AM Discharge Instructions Given to Patient (Per Discharging Provider) Almas, You were admitted and seen by Cardiology, gastroenterology and neurology for your symptoms. You were diagnosed with a Norovirus and E coli infection causing your diarrhea and after treatment your symptoms improved. You also had procedures done with Gastroenterology that showed that you have hemorrhoids. These will likely bleed occasionally. You were also given IV fluids and your symptoms improved as well. Please continue with hydration by mouth at home especially if the diarrhea returns. Please keep close follow up with your primary care provider, gastroenterology and Cardiology after discharge. Please do not hesitate to come back to the emergency room if your symptoms worsen or return. It was a pleasure taking care of you while you were here. Total Time Total Time Spent Total Time Spent (In Minutes): 65
[2024-04-27 15:26] VITALS: BP 155/73; PULSE 64
--- NOTE | 2024-04-28 15:40 | Electrocardiogram Report ---
Test Reason : Blood Pressure : */* mmHG Vent. Rate : 75 BPM Atrial Rate : 75 BPM P-R Int : 218 ms QRS Dur : 96 ms QT Int : 386 ms P-R-T Axes : 52 -54 33 degrees QTcB Int : 431 ms Sinus rhythm with 1st degree A-V block Left axis deviation Incomplete right bundle branch block Cannot rule out Anterior infarct (cited on or before 21-Apr-2024) Abnormal ECG When compared with ECG of 21-Apr-2024 18:16, Incomplete right bundle branch block is now Present Questionable change in initial forces of Anterior leads Confirmed by Justine Grullon (Ori) on 04/24/2024 1:33:03 PM Referred By: REFERRED SELF Confirmed By: Justine Grullon
== END 2024-04-27 18:40 | disposition home or self-care (01) | DRG 378 ==
LOC: ED 13:25 → SUATTDRO 16:38 → EDINP 16:38 → 2N 18:39

== ENCOUNTER 2024-06-03 14:45 | Observation (INO) ==
[2024-06-03 15:29] LABS: Basophils # (auto) 0.08 K/uL (0.00-0.20); Basophils % (auto) 1.2 %; Eosinophils % (auto) 4.6 %; Hemoglobin 13.5 g/dl (14.0-18.0); Immature Granulocytes # (auto) 0.02 K/uL (0.01-0.20); Immature Granulocytes % (auto) 0.3 %; Lymphocytes # (auto) 1.74 K/uL (1.20-3.40); Lymphocytes % (auto) 26.8 %; Mean Corpuscular Hgb Conc 32.9 g/dL (32.0-36.0); Mean Corpuscular Volume 84.9 fL (80.0-100.0); Mean Platelet Volume 8.9 fL (9.4-12.4); Monocytes # (auto) 0.79 K/uL (0.11-0.59); Monocytes % (auto) 12.2 %; Neutrophils # (auto) 3.56 K/uL (1.40-6.50); Neutrophils % (auto) 54.9 %; Platelet Count 266 K/uL (130-400); RDW Coefficient of Variation 14.9 % (11.5-14.5); RDW Standard Deviation 45.4 fL (36.4-46.3); Red Blood Count 4.83 M/uL (4.70-6.10); White Blood Count 6.49 K/ul (4.8-10.8)
--- NOTE | 2024-06-03 15:39 | XRay Report ---
SINGLE VIEW CHEST CLINICAL HISTORY: Atypical chest pain FINDINGS: A PA chest radiograph is compared to study dated 04/21/2024. The cardiomediastinal silhouett e is normal for projection noting atherosclerotic calcification of the thoracic aorta. There is minim al bibasilar atelectasis. The lungs and pleural spaces are otherwise clear. No pneumothorax is seen. The bony thorax is grossly intact. IMPRESSION: No active disease in the chest. ACT 112: Negative or not required by law. Electronically signed by: Bravo Wiley M.D. 06/03/2024 3:38 PM
[2024-06-03 15:41] LABS: Alanine Aminotransferase 22 U/L (7-52); Albumin Globulin Ratio 1.7 (0.9-2); Albumin Level 4.6 gm/dl (3.4-5.0); Alkaline Phosphatase 88 U/L (34-104); Anion Gap 6 (3-11); Aspartate Aminotransferase 18 U/L (13-39); BUN Creatinine Ratio 15.3 (10-20); Bilirubin,Total 0.7 mg/dl (0.2-1.0); Blood Urea Nitrogen 18 mg/dl (6-23); Calcium 9.7 mg/dl (8.6-10.3); Carbon Dioxide 31 mmol/L (21-32); Chloride 104 mmol/L (98-107); Globulin 2.7 gm/dl (2.5-4.0); Glucose 110 mg/dl (70-99(Fasting)); Potassium 4.3 mmol/L (3.5-5.1); Sodium 141 mmol/L (136-145); Total Protein 7.3 gm/dl (6.0-8.3)
[2024-06-03 15:44] LABS: Partial Thromboplastin Time 28 Seconds (21-31); Prothrombin Time 10.9 Seconds (9.0-12.0)
[2024-06-03 15:47] LABS: Troponin I High Sensitivity 4.1 pg/ml (0-20)
--- NOTE | 2024-06-03 16:39 | Electrocardiogram Report ---
Test Reason : Blood Pressure : */* mmHG Vent. Rate : 79 BPM Atrial Rate : 79 BPM P-R Int : 202 ms QRS Dur : 96 ms QT Int : 384 ms P-R-T Axes : -20 -11 -14 degrees QTcB Int : 440 ms Normal sinus rhythm possible Inferior infarct , age undetermined Abnormal ECG When compared with ECG of 23-Apr-2024 12:06, Incomplete right bundle branch block is no longer Present Minimal criteria for Anterior infarct are no longer Present Confirmed by Chacorta Whittington ([id number]) on 06/03/2024 4:39:11 PM Referred By: Confirmed By: Chacorta Whittington
--- NOTE | 2024-06-03 16:49 | Emergency Department Note ---
Impression & Plan Chest pain ED Provider Note HISTORY OF PRESENT ILLNESS: Patient is a 68-year-old male presenting with chest pain. Patient reports that last night around 2100 he developed "a dull pressure-like sensation in the substernal region of my chest." He states that the pain was still present when he went to bed, but he was awoken from sleep at midnight with crushing chest pain. Reports he got up out of bed and felt lightheaded and dizzy and made his way to the recliner and took a sublingual nitro. He reports that the pain eased up slightly but lasted for about an hour. He states that he did still have chest pain present throughout the day today that seem to wax and wane in intensity. He reports it never went away completely. He states that for the last week when he stands up, he becomes very lightheaded and dizzy. He had a follow-up appointment with his outpatient lead worker of housekeeping and laundry 48 hours ago and had metoprolol medication adjusted. He states that he feels lightheaded and dizzy when he stands up. He is on Plavix. He has a history of cardiac stents. Denies any DVT or PE history. Not take any further nitroglycerin since midnight. On my assessment, he is currently complaining of 4 out of 10 chest pain ROS: as above PHYSICAL EXAM: Constitutional: Patient appears in no acute distress. HENT: Head: Normocephalic and atraumatic. Eyes: EOMI, PERRL Mouth/Throat: Mucous membranes moist. Neck: Trachea midline. Neck supple. Cardiovascular: RRR, No murmurs, rubs or gallops. Intact distal pulses. Pulmonary/Chest: No respiratory distress. Breath sounds clear and equal bilaterally. No wheezes or rales. Abdominal: Abdomen soft, no tenderness, rebound or guarding. Musculoskeletal: No edema, tenderness or deformity noted. Skin: Warm and dry. No rash, erythema, pallor or cyanosis Psychiatric: Appropriate mood and affect for situation. Neurological: Alert and keenly responsive. CN II-XII grossly intact, moving all extremities equally and fully. MDM: - Vitals signs showed hypertension - History obtained via patient. History as above. - Chronic conditions affecting care: DM-2; CAD (s/p PCI); HDN; HLD - Differential diagnoses include, but are not limited to: Acute coronary syndrome; pulmonary embolism; dissection; tension pneumothorax; esophageal rupture; pneumonia - Order placed for continuous cardiac monitoring. At this time, monitor showed rate of 73 bpm with normal sinus rhythm, per my interpretation. - External medical records reviewed. Discharge summary dated 04/27/2024 was reviewed. Patient was admitted at that time for chest pain and hematochezia. He has a history of stent placement but per cardiology during that visit, he has " chronic chest discomfort noted without evidence of acute coronary syndrome." - EKG interpreted by myself showed normal sinus rhythm. Rate 79 bpm. QT 384. No acute ischemic changes. - Laboratory workup interpreted by myself showed normal WBC; normal PT/INR; stable electrolytes; normal troponin - CXR negative for pneumonia, per my interpretation - HEART score 6 (History +2 highly suspicious; EKG +0; Age +2; Risk factors +2; Initial troponin +0), amounting to a moderate score. - Discussion was had with renal case manager about patient's case and need for admission - Hospitalist consulted for admission - [facility] ASSESSMENT AND PLAN: Diagnosis: chest pain Plan: admit Past Med/Surg History Problem List (Updated 06/03/24 @ 18:07 by Adamaris Saenz MD) Chest pain (Acute) Ambulatory dysfunction Norovirus Enterotoxigenic Escherichia coli infection Orthostatic dizziness Diarrhea GI bleeding (Acute) Blood in stool Peripheral neuropathy Status post insertion of drug-eluting stent into left anterior descending (LAD) artery CAD (coronary artery disease), [place] coronary artery Diabetes mellitus type 2 with complications Musculoskeletal chest pain CAD (coronary artery disease), [place] coronary artery Steroid-induced gastritis Unstable angina pectoris due to coronary arteriosclerosis Cervical spine arthritis with nerve pain Hypertension Chest pain (Acute) Medical History Finger avulsion middle right finger and reattached Non-insulin dependent type 2 diabetes mellitus Obesity (BMI 35.0-39.9 without comorbidity) Diabetes Seasonal allergies High cholesterol Surgical History Hx of colonoscopy Hx of hernia repair as child Social History Smoking Status: Former smoker Tobacco Type: Cigarettes Second Hand Exposure: No; Do You Dip or Chew Tobacco: No; Hx Alcohol Use: Yes Alcohol type: beer Hx Substance Use: No Preferred Language: Swedish Communication Ability: Effective Employment Agency Manager Required: No Beliefs That Will Affect Care: None Current Living Situation: Spouse Current Living Situation Comment: lives at home with Lindy 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 Feels Safe at Home: Yes Assistive Devices: Glasses Allergies Allergies Allergy/AdvReac Type Severity Reaction Status Date / Time No Known Allergies Allergy Unknown Verified 04/23/24 14:23 Home Meds Home Medications Medication Instructions Recorded Confirmed aspirin 81 mg tablet,delayed 81 mg PO QDD 08/13/18 04/21/24 release (Nga Low Dose Aspirin) atorvastatin 80 mg tablet 80 mg PO HS 08/13/18 04/21/24 fexofenadine 180 mg tablet 180 mg PO QDD 08/13/18 04/21/24 fluticasone propionate 50 2 spray intranasal QAM 08/13/18 04/21/24 mcg/actuation nasal spray,suspension (Flonase Allergy Relief) lisinopril 20 mg tablet 20 mg PO QPM 08/13/18 04/21/24 magnesium 250 mg tablet 250 mg PO QDD 08/13/18 04/21/24 multivitamin 1 tab PO QAM 08/13/18 04/21/24 omega 1-arn-hcq-fish oil 1,000 mg 1 cap PO DAILY 08/13/18 04/21/24 (120 mg-180 mg) capsule (Fish Oil) potassium gluconate 550 mg (90 mg) 550 mg PO QDD 08/13/18 04/21/24 tablet diclofenac sodium 1 % topical gel 1 g topical QID 02/10/24 04/21/24 (Voltaren Arthritis Pain) esomeprazole magnesium 20 mg 20 mg PO DAILYBB 02/10/24 04/21/24 capsule,delayed release (Nexium) semaglutide 7 mg tablet (Rybelsus) 7 mg PO QAM 02/10/24 04/21/24 vit C 250 mg-vit E 90 mg-zinc 40 1 tab PO BID 02/10/24 04/21/24 mg-copper 1 cf-gneogk-mvdrwa capsule (PreserVision AREDS-2) clopidogrel 75 mg tablet 75 mg PO QAM 04/21/24 04/21/24 ezetimibe 10 mg tablet 10 mg PO QAM 04/21/24 04/21/24 metformin 1,000 mg tablet 1,000 mg PO BIDWMEAL 04/21/24 04/21/24 montelukast 10 mg tablet 10 mg PO QAM 04/21/24 04/21/24 Previous Rx's Medication Instructions Recorded gabapentin 100 mg capsule 100 mg PO HS #30 caps 02/12/24 metoprolol succinate 25 mg 12.5 mg (1/2 x 25 mg) PO QAM #30 02/12/24 tablet,extended release 24 hr tabs pantoprazole 40 mg tablet,delayed 40 mg PO BID #60 tabs 04/27/24 release Results & Data (ED) Vital Signs Vital Signs - 24 hr 06/03/24 14:48 06/03/24 17:55 06/03/24 18:01 Temperature 36.5 C Temperature Source Temporal Artery Scan Pulse Rate 81 73 Pulse Rate [Apical] 80 Respiratory Rate 20 19 Respiratory Effort / Characteristics Non-Labored Spontaneous Non-Labored Respiratory Depth Normal Normal Respiratory Pattern Regular Blood Pressure 163/89 H Blood Pressure [Left Arm] 156/82 H Blood Pressure Mean 113 Blood Pressure Mean [Left Arm] 106 Pulse Oximetry 97 96 Oxygen Delivery Method Room Air Room Air Oxygen Flow Rate Sepsis Recent Fever Within 48 Hours No Sepsis New/Unexplained Change in Mental Status No Sepsis Action Taken by Nursing No Action Required 06/03/24 18:02 Temperature Temperature Source Pulse Rate Pulse Rate [Apical] Respiratory Rate Respiratory Effort / Characteristics Respiratory Depth Respiratory Pattern Blood Pressure Blood Pressure [Left Arm] Blood Pressure Mean Blood Pressure Mean [Left Arm] Pulse Oximetry 96 Oxygen Delivery Method Room Air Oxygen Flow Rate 0 Sepsis Recent Fever Within 48 Hours Sepsis New/Unexplained Change in Mental Status Sepsis Action Taken by Nursing Laboratory Data 06/03/24 14:54 06/03/24 14:54 Lab Results 06/03/24 Range/Units 14:54 WBC 6.49 (4.8-10.8) K/ul RBC 4.83 (4.70-6.10) M/uL Hgb 13.5 L (14.0-18.0) g/dl Hct 41.0 L (42.0-52.0) % MCV 84.9 (80.0-100.0) fL MCH 28.0 (25.0-34.0) pg MCHC 32.9 (32.0-36.0) g/dL RDW Std Deviation 45.4 (36.4-46.3) fL RDW Coeff of Dragan 14.9 H (11.5-14.5) % Plt Count 266 (130-400) K/uL MPV 8.9 L (9.4-12.4) fL Immature Gran % (Auto) 0.3 % Neut % (Auto) 54.9 % Lymph % (Auto) 26.8 % [place] % (Auto) 12.2 % Eos % (Auto) 4.6 % Baso % (Auto) 1.2 % Neut # (Auto) 3.56 (1.40-6.50) K/uL Lymph # (Auto) 1.74 (1.20-3.40) K/uL [place] # (Auto) 0.79 H (0.11-0.59) K/uL Eos # (Auto) 0.30 (0.00-0.50) K/uL Baso # (Auto) 0.08 (0.00-0.20) K/uL Immature Gran # (Auto) 0.02 (0.01-0.20) K/uL PT 10.9 (9.0-12.0) Seconds INR 1.0 (0.9-1.1) APTT 28 (21-31) Seconds PTT Ratio 1.0 Sodium 141 (136-145) mmol/L Potassium 4.3 (3.5-5.1) mmol/L Chloride 104 (98-107) mmol/L Carbon Dioxide 31 (21-32) mmol/L Anion Gap 6 (3-11) BUN 18 (6-23) mg/dl Creatinine 1.18 (0.6-1.4) mg/dl Est Cr Clr Drug Dosing Not Reportable eGFR 67.63 BUN/Creatinine Ratio 15.3 (10-20) Glucose 110 H (70-99(Fasting)) mg/dl Calcium 9.7 (8.6-10.3) mg/dl Total Bilirubin 0.7 (0.2-1.0) mg/dl AST 18 (13-39) U/L ALT 22 (7-52) U/L Alkaline Phosphatase 88 (34-104) U/L Troponin I High Sens 4.1 (0-20) pg/ml Total Protein 7.3 (6.0-8.3) gm/dl Albumin 4.6 (3.4-5.0) gm/dl Globulin 2.7 (2.5-4.0) gm/dl Albumin/Globulin Ratio 1.7 (0.9-2) Imaging Data Radiologist's Impression: Chest X-Ray 06/03/24 14:48 SINGLE VIEW CHEST CLINICAL HISTORY: Atypical chest pain FINDINGS: A PA chest radiograph is compared to study dated 04/21/2024. The cardiomediastinal silhouette is normal for projection noting atherosclerotic calcification of the thoracic aorta. There is minimal bibasilar atelectasis. The lungs and pleural spaces are otherwise clear. No pneumothorax is seen. The bony thorax is grossly intact. IMPRESSION: No active disease in the chest. ACT 112: Negative or not required by law. Electronically signed by: Bravo Wiley M.D. 06/03/2024 3:38 PM Discharge Plan Visit Data Chief Complaint: Chest Pain Stated Complaint: SENT OVER, POSSIBLE HEART ATTACK LAST NIGHT ED Provider: Adamaris Saenz Discharge Problem: Chest pain Forms Stand Alone Forms: My [facility] Prescriptions Prescriptions: No Action multivitamin Tablet 1 tab PO QAM atorvastatin 80 mg Tablet 80 mg PO HS lisinopril 20 mg Tablet 20 mg PO QPM Hold Instructions: until cardiology followup fexofenadine 180 mg Tablet 180 mg PO QDD aspirin [Nga Low Dose Aspirin] 81 mg Tablet,Delayed Release (Dr/Ec) 81 mg PO QDD fluticasone propionate [Flonase Allergy Relief] 50 mcg/actuation [place],Suspension 2 spray INTRANASAL QAM omega 5-ogf-qnd-fish oil [Fish Oil] 1,000 mg (120 mg-180 mg) Capsule 1 cap PO DAILY magnesium 250 mg Tablet 250 mg PO QDD potassium gluconate 550 mg (90 mg) Tablet 550 mg PO QDD esomeprazole magnesium [Nexium] 20 mg Capsule,Delayed Release(Dr/Ec) 20 mg PO DAILYBB diclofenac sodium [Voltaren Arthritis Pain] 1 % Gel 1 g TOPICAL QID PreserVision AREDS-2 250-90-40-1 mg Capsule 1 tab PO BID Rybelsus 7 mg Tablet 7 mg PO QAM metoprolol succinate 25 mg Tablet Extended Release 24 Hr 12.5 mg PO QAM Qty: 30 0RF gabapentin 100 mg capsule 100 mg PO HS Qty: 30 0RF clopidogrel 75 mg tablet 75 mg PO QAM metformin 1,000 mg tablet 1,000 mg PO BIDWMEAL montelukast 10 mg tablet 10 mg PO QAM ezetimibe 10 mg tablet 10 mg PO QAM pantoprazole 40 mg Tablet,Delayed Release (Dr/Ec) 40 mg PO BID Qty: 60 0RF Referrals Referrals: Alonso Daigle MD [Primary Care Provider] -
--- NOTE | 2024-06-03 18:23 | History & Physical Report ---
Date of Service June 03, 2024 Assessment & Plan (1) Chest pain: (2) CAD (coronary artery disease), nome coronary artery: (3) Diabetes mellitus type 2 with complications: (4) Hypertension: (5) Obesity (BMI 35.0-39.9 without comorbidity): (6) High cholesterol: Plan This is a 68-year-old male who has a significant past medical history of CAD status post AMY to LAD February 11, 2024, HTN, HLD, T2DM, NSVT who presents to ED secondary to atypical chest pain. Atypical Chest Pain CAD - hx of AMY to LAD February 11, 2024 admit to PCU pt with intermitted atypical chest pain since stent insertion, intolerant to isosorbide metoprolol recently increased to Toprol XL 25mg daily and Ranexa 500mg bid added Pt with persistent chest pain over last 24 hrs trop negative (but when requiring stent placement trop also negative) trial nitro paste, prn IV morphine continue current regimen of metoprolol, asa, plavix, statin will defer further imaging/echo to cardiology consult cards in a.m., NPO after midnight in event further intervention required per Dr. Snider progress note from 06/03 possible discussion with interventional cardio at [facility] regarding occluded RCA pt still reports lightheaded/dizziness upon standing Rectal Bleeding pt hospitalized in april for rectal bleeding sigmoidoscopy consistent with infectious colititis, ETEC and norovirus s/p Azithromycin rectal bleeding still occurring despite Anusol, hgb stable consult GI for any further recs given pt unable to stop DAPT HTN: chronic, stable, continue metoprolol, lisinopril recently d/c HLD: chronic, stable, continue statin T2DM: Last a1c 6.8, hold metformin/rybelsus; novolog per protocol DVT ppx: SQ Heparin FULL CODE PCP: [facility] Dispo: admit to PCU for further cardiac monitoring Pt was seen and examined in collaboration with Dr. Panchal, please see addendum I spent a total of 76 minutes minutes reviewing notes, outpatient records, labs, medication, coordinating, documenting and providing care for this patient excluding time spent in the performance of separately billed services. History of Present Illness Chief Complaint: chest pain x 1 day. Primary Care Provider: Alonso Daigle MD This is a 68-year-old male who has a significant past medical history of CAD status post AMY to LAD February 11, 2024, HTN, HLD, T2DM, NSVT who presents to ED secondary to atypical chest pain. Of significance patient was admitted to [facility] on 04/21/2024 due to rectal bleeding with hemoglobin down to 11.7. He underwent sigmoidoscopy which revealed findings suggestive of infectious colitis. Stool studies tested positive for ETEC and norovirus. He was treated with a course of azithromycin. At discharge hemoglobin was 13.1. He recently had follow-up with cardiology on June 01. At that appointment he reported positional dizziness and orthostatic symptoms. He also reported chest heaviness when he, "overdoes it." He previously trialed isosorbide and was unable to tolerate. It was recommended to titrate Toprol XL to 25 mg daily with the addition of Ranexa. It was noted that he does have a chronic total occlusion and primary pan shaker will discuss with interventional cardiology in [place] regarding PCI. patient presented to ED today due to atypical chest pain that was off and on. At approximately 2100 last evening he developed a dull pressure in the sub sternal area of his chest. The pain remained constant but was dull enough that he was able to fall asleep. He woke up at approximately midnight and described the pain as, "crushing." He was able to get up out of bed and take a sublingual nitro. Upon getting up he did report feeling lightheaded and dizzy. He reports improvement with nitro. During the day today he has had pain off and on and has been waxing and waning with intensity. He is unable to move his routine if the pain is worse with exertion as he has been mostly sedentary today. Over the last week he does report increasing lightheadedness and dizziness upon standing. He has been compliant with his medications. In ED patient remained hemodynamically stable. His EKG was without ischemic change and his initial troponin was unremarkable. His CMP was unremarkable and his CBC revealed hemoglobin of 13.5. His chest x-ray was without acute abnormality. Allergies Allergy/AdvReac Type Severity Reaction Status Date / Time No Known Allergies Allergy Unknown Verified 04/23/24 14:23 Home Medications Medication Instructions Recorded Confirmed Type aspirin 81 mg tablet,delayed 81 mg PO QDD 08/13/18 06/03/24 History release (Nga Low Dose Aspirin) atorvastatin 80 mg tablet 80 mg PO HS 08/13/18 06/03/24 History fexofenadine 180 mg tablet 180 mg PO QDD 08/13/18 06/03/24 History fluticasone propionate 50 2 spray intranasal QAM 08/13/18 06/03/24 History mcg/actuation nasal spray,suspension (Flonase Allergy Relief) multivitamin 1 tab PO QAM 08/13/18 06/03/24 History omega 4-xzf-amm-fish oil 1,000 mg 1 cap PO DAILY 08/13/18 06/03/24 History (120 mg-180 mg) capsule (Fish Oil) potassium gluconate 550 mg (90 mg) 550 mg PO QDD 08/13/18 06/03/24 History tablet diclofenac sodium 1 % topical gel 1 g topical QID 02/10/24 06/03/24 History (Voltaren Arthritis Pain) esomeprazole magnesium 20 mg 20 mg PO DAILYBB 02/10/24 06/03/24 History capsule,delayed release (Nexium) semaglutide 7 mg tablet (Rybelsus) 7 mg PO QAM 02/10/24 06/03/24 History vit C 250 mg-vit E 90 mg-zinc 40 1 tab PO BID 02/10/24 06/03/24 History mg-copper 1 pb-lpudqu-xqttxm capsule (PreserVision AREDS-2) gabapentin 100 mg capsule 100 mg PO HS #30 caps 02/12/24 06/03/24 Rx clopidogrel 75 mg tablet 75 mg PO QAM 04/21/24 06/03/24 History ezetimibe 10 mg tablet 10 mg PO QAM 04/21/24 06/03/24 History metformin 1,000 mg tablet 1,000 mg PO BIDWMEAL 04/21/24 06/03/24 History montelukast 10 mg tablet 10 mg PO QAM 04/21/24 06/03/24 History pantoprazole 40 mg tablet,delayed 40 mg PO BID #60 tabs 04/27/24 06/03/24 Rx release magnesium 250 mg tablet 250 mg PO DAILY 06/03/24 06/03/24 History metoprolol succinate 25 mg 25 mg PO QAM 06/03/24 06/03/24 History tablet,extended release 24 hr ranolazine 500 mg tablet,extended 500 mg PO BID 06/03/24 06/03/24 History release,12 hr Past Med/Surg History Problem List Chest pain (Acute) Ambulatory dysfunction Norovirus Enterotoxigenic Escherichia coli infection Orthostatic dizziness Diarrhea GI bleeding (Acute) Blood in stool Peripheral neuropathy Status post insertion of drug-eluting stent into left anterior descending (LAD) artery CAD (coronary artery disease), nome coronary artery Diabetes mellitus type 2 with complications Musculoskeletal chest pain CAD (coronary artery disease), nome coronary artery Steroid-induced gastritis Unstable angina pectoris due to coronary arteriosclerosis Cervical spine arthritis with nerve pain Hypertension Chest pain (Acute) Medical History Finger avulsion middle right finger and reattached Non-insulin dependent type 2 diabetes mellitus Obesity (BMI 35.0-39.9 without comorbidity) Diabetes Seasonal allergies High cholesterol Surgical History Hx of colonoscopy Hx of hernia repair as child Social History Smoking Status: Former smoker Tobacco Type: Cigarettes Second Hand Exposure: No; Do You Dip or Chew Tobacco: No; Hx Alcohol Use: Yes Alcohol type: beer Hx Substance Use: No Preferred Language: French Communication Ability: Effective 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 Beliefs That Will Affect Care: None Current Living Situation: Spouse Current Living Situation Comment: lives at home with Lindy 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 Feels Safe at Home: Yes Assistive Devices: Glasses Review of Systems Review of Systems: All systems reviewed & are unremarkable except as noted in HPI & below Physical Exam Physical Exam: Constitutional: WD/WN, vitals as above, NAD, sitting up in bed, pleasant, conversing easily Head: Normocephalic, Atraumatic Eyes: PERRL, conjunctivae normal, anicteric sclerae ENMT: external ear and nose normal, oropharynx normal Neck: trachea midline, no thyromegaly normal visual inspection Respiratory: normal respiratory effort, lungs clear to auscultation, no wheeze, rales, rhonchi. Normal insp/exp effort, no accessory muscle use Cardiovascular: RRR, no murmur, no edema Vessels: no JVD or carotid bruit Chest: normal inspection of chest Abdomen: normal bowel sounds, soft, nontender, no hepatosplenomegaly Musculoskeletal: no cyanosis or clubbing, extremities motor strength 5/5 Skin: no rashes, warm and dry normal turgor Neurologic: PERRL, EOMI, accommodation nl, no face palsy, no dysarthria CN's II-XI intact bilaterally and moves all extremities Psychiatric: A+Ox3, euthymic affect Lymphatic: no cervical or axillary lymphadenopathy : deferred Results & Data Results & Data Vital Signs (Past 12 Hours) Vital Signs Temp Pulse Pulse Resp BP BP Pulse Ox 06/03/24 18:02 96 06/03/24 18:01 80 19 156/82 H 96 06/03/24 17:55 73 06/03/24 14:48 36.5 C 81 20 163/89 H 97 O2 Del Method O2 Flow Rate 06/03/24 18:02 Room Air 0 06/03/24 18:01 Room Air 06/03/24 17:55 06/03/24 14:48 Room Air Laboratory Results I have independently reviewed and interpreted patient's admitting labs including CBC, CMP, PTT, PT/INR, and troponin. Diagnostic Findings Chest X-Ray 06/03/24 14:48 SINGLE VIEW CHEST CLINICAL HISTORY: Atypical chest pain FINDINGS: A PA chest radiograph is compared to study dated 04/21/2024. The cardiomediastinal silhouette is normal for projection noting atherosclerotic calcification of the thoracic aorta. There is minimal bibasilar atelectasis. The lungs and pleural spaces are otherwise clear. No pneumothorax is seen. The bony thorax is grossly intact. IMPRESSION: No active disease in the chest. ACT 112: Negative or not required by law. Electronically signed by: Bravo Wiley M.D. 06/03/2024 3:38 PM ECG Additional Comments: I have independently reviewed and interpreted patient's admitting EKG which revealed: 79bpm, NSR, qtc 440ms COVID-19 Results Results COVID-19 Adm Lab Results: RBC 4.83 M/uL (4.70-6.10) 06/03/24 WBC 6.49 K/ul (4.8-10.8) 06/03/24 Hgb 13.5 g/dl (14.0-18.0) L 06/03/24 Hct 41.0 % (42.0-52.0) L 06/03/24 Plt Count 266 K/uL (130-400) 06/03/24 Neutrophils (%) (Auto) 54.9 % 06/03/24 Lymphocytes (%) (Auto) 26.8 % 06/03/24 Monocytes # (Auto) 0.79 K/uL (0.11-0.59) H 06/03/24 Eosinophils # (Auto) 0.30 K/uL (0.00-0.50) 06/03/24 Immature Granulocyte % (Auto) 0.3 % 06/03/24 Neutrophils # (Auto) 3.56 K/uL (1.40-6.50) 06/03/24 Lymphocytes # (Auto) 1.74 K/uL (1.20-3.40) 06/03/24 Monocytes # (Auto) 0.79 K/uL (0.11-0.59) H 06/03/24 Eosinophils # (Auto) 0.30 K/uL (0.00-0.50) 06/03/24 Basophils # (Auto) 0.08 K/uL (0.00-0.20) 06/03/24 Immature Granulocyte # (Auto) 0.02 K/uL (0.01-0.20) 4 Na 141 mmol/L (136-145) 06/03/24 K 4.3 mmol/L (3.5-5.1) 06/03/24 Cl 104 mmol/L (98-107) 06/03/24 CO2 31 mmol/L (21-32) 06/03/24 Anion Gap 6 (3-11) 06/03/24 BUN 18 mg/dl (6-23) 06/03/24 Creatinine 1.18 mg/dl (0.6-1.4) 06/03/24 BUN/Creatinine Ratio 15.3 (10-20) 06/03/24 Glucose Level 110 mg/dl (70-99(Fasting)) H 06/03/24 Ca 9.7 mg/dl (8.6-10.3) 06/03/24 Total Bilirubin 0.7 mg/dl (0.2-1.0) 06/03/24 AST/SGOT 18 U/L (13-39) 06/03/24 ALT/SGPT 22 U/L (7-52) 06/03/24 Alkaline Phosphatase 88 U/L (34-104) 06/03/24 Total Protein 7.3 gm/dl (6.0-8.3) 06/03/24 Albumin 4.6 gm/dl (3.4-5.0) 06/03/24 Globulin 2.7 gm/dl (2.5-4.0) 06/03/24 Albumin/Globulin Ratio 1.7 (0.9-2) 06/03/24 PTT 28 Seconds (21-31) 06/03/24 INR 1.0 (0.9-1.1) 06/03/24 Chest X-Ray 06/03/24 Code Status & VTE Plan Code Status FULL CODE VTE Prophylaxis Plan VTE Prophylaxis will be ordered: Yes Supervising Physician Co-Signing Physician Notes Attending Addendum: Case reviewed with the advanced practitioner. I have personally performed a history and physical examination on the patient. I have reviewed the advanced practitioner's documentation on the date of service referenced in note, and I agree with, and take responsibility for the plan of care. please refer to her notes for full details patient seen and examined, records reviewed by myself as well on exam, patient seen resting in bed, not in distress describes sharp discomfort over L chest, 3-4/ no active dizziness, nausea, shortness of breath no other symptoms VS noted and reviewed oriented x3, not in distress, speaks in sentences with no effort nor accessory muscle use normal rate, regular rhythm, no murmurs clear breath sounds bilaterally non distended, soft, nontender trace lower leg edema, erythema, warmth no neuro deficits all labs, imaging noted and reviewed ASSESSMENT AND PLAN> PERSISTENT CHEST PAIN CAD, S/P LAD STENT LAST January possible unstable angina trop negative so far, EKG without acute ischemia or infarct Nitropaste, PRN Morphine continue ASA, Plavix, Lipitor NPO post midnight Cardiology service consulted INTERMITTENT RECTAL BLEED s/p sigmoidoscopy recently completed course of Azithromycin for infectious colititis, ETEC and norovirus Hg stable, needs uninterrupted course of Aspirin and Plavix in light of recent cardiac stent GI consulted other diagnoses and plan of care as per advanced practitioner's notes Omar Panchal MD (2) CAD (coronary artery disease), nome coronary artery Associated angina: with stable angina [place] vs. transplanted heart: nome heart Qualified Code(s): I25.118 - Atherosclerotic heart disease of nome coronary artery with other forms of angina pectoris (4) Hypertension Hypertension type: primary hypertension Qualified Code(s): I10 - Essential (primary) hypertension
[2024-06-03] MEDS: fentaNYL citrate PF 100 MCG/2 ML VIAL IV STA (19:05)
[2024-06-03] MEDS: NITROGLYCERIN 2% OINTMENT 30GM TUBE EXT SCH (19:43)
[2024-06-03] MEDS ORDERED: ONDANSETRON INJ 2 MG/ML 2 ML VIAL IV PRN (21:22)
[2024-06-03] MEDS ORDERED: GLUCOSE 10 TAB/TUBE PO PRN (21:22)
[2024-06-03] MEDS ORDERED: CARBOHYDRATES FOR HYPOGLYCEMIA PO PRN (21:22)
[2024-06-03] MEDS ORDERED: DEXTROSE 50% 50 ML SYRINGE IV PRN (21:22)
[2024-06-03] MEDS ORDERED: GLUCOSE 40% GEL 15 GM TUBE PO PRN (21:22)
[2024-06-03] MEDS ORDERED: ALUMINUM/MAGNESIUM SUSP 30 ML UDC PO PRN (21:22)
[2024-06-03] MEDS ORDERED: GLUCAGON FOR INJ 1 MG VIAL SQ PRN (21:22)
[2024-06-03] MEDS ORDERED: POLYETHYLENE (MIRALAX) 17 GM PACK PO PRN (21:22)
[2024-06-03] MEDS: RANOLAZINE 500 MG ER TAB PO SCH (22:11)
[2024-06-03] MEDS: PANTOprazole 40 MG TAB PO SCH (22:12)
[2024-06-03] MEDS: GABAPENTIN 100 MG CAP PO SCH (22:13)
[2024-06-03] MEDS: ASPIRIN 81 MG ECTAB PO SCH (22:13)
[2024-06-03] MEDS: ATORVASTATIN 40 MG TAB PO SCH (22:13)
[2024-06-03] MEDS: INSULIN ASPART PER UNIT CHARGE SC SCH (22:14)
[2024-06-03] MEDS: HEPARIN SOD 5,000 UNIT/0.5 ML VIAL SQ SCH (22:17)
[2024-06-03] MEDS: MoRPHine SULFATE 2 MG/ML CARP IV PRN (22:23)
--- OUTSIDE RECORDS SUMMARY | 2024-06-04 05:50 | External Medical Summary | Summary of Care ---
Author Name Unknown Organization [facility] Address [address] [place] [address] Phone [phone] Care Team Providers Care Timber Poisoner Name Role Phone Nisa Goodrich PA-C Primary Care Provider [phone] Encounter Details Date Type Department Care Team (Late st Contact Info) Description 05/26/2024 Telephone Gastroenterology, [facility] [address] [place] [address] AnaKary anand CRNP [address] [place] [id number] Allergies No known active allergiesdocumented as of this encounter (statuses as of 06/01/2024) Medications Medication Sig Dispensed Refills Start Date End Date Status ASPIRIN 81 MG OR TABS one tab by mouth daily 0 0 11/23/2004 Active ONE DAILY MENS PO TABS 1 daily 0 03/24/2006 Active Potassium Gluconate 550 MG TABS Take 1 Tablet by mouth daily. 10/05/2018 Active Diclofenac Sodium (VOLTAREN) 1 % [...] evening meals. 180 Tablet 3 10/17/2023 Active Atorvastatin Calcium 80 MG Oral Tablet [...] dissolve on tongue. 20 Tablet 02/09/2024 Active Gabapentin 100 MG Oral Capsule (Neurontin) Take 1 Capsule by mouth at bedtime. 90 Capsule 1 03/12/2024 Active Ezetimibe 10 MG Oral Tablet (Zetia) Take 1 Tablet by mouth in the morning. 90 Tablet 3 03/15/2024 Active Rybelsus 7 MG Oral Tablet Take 7 mg by mouth daily first thing in the morning. 03/15/2024 Active Metoprolol Succinate ER 25 MG Oral Tablet Extended Release 24 Hour (toPROL XL)Indications:HTN, goal below 140/90,Chronic coronary artery disease,NSVT (nonsustained ventricular tachycardia) (HCC),Dyslipidemia, goal LDL below 70 Take one half Tablet by mouth in the morning. 45 Tablet 3 04/16/2024 Active Clopidogrel Bisulfate 75 MG Oral Tablet (Plavix) Take 1 Tablet by mouth in the morning. 34 Tablet 11 04/16/2024 Active Vitron-C 65-125 MG Oral Tablet (Iron-Vitamin C 65-125 mg per tab) Take 1 Tablet by mouth in the morning. Active Mesalamine 1.2 GM Oral Tablet Delayed Release (Lialda)Indications: BRBPR (bright red blood per rectum),Internal hemorrhoids,Infectio us colitis,Diarrhea of presumed infectious origin,Gastroesophag eal reflux disease without esophagitis Take 2 Tablets by mouth in the morning. 120 Tablet 05/12/2024 Active Dicyclomine HCl 10 MG Oral Capsule (Bentyl)Indications: BRBPR (bright red blood per rectum),Internal hemorrhoids,Infectio us colitis,Diarrhea of presumed infectious origin,Gastroesophag eal reflux disease without esophagitis Take 1 Capsule by mouth in the morning and 1 Capsule before bedtime. 60 Capsule 2 05/12/2024 Active Lisinopril 20 MG Oral Tablet (Prinivil) Take 0.5 Tablets by mouth in the morning. Active GetNotesuch Ultra 2 w/Device Kit Use as directed. Use to test blood sugar E11.9 1 Kit 05/17/2024 Active FliplifeTouch Ultra In Vitro Strip (Glucose Blood) Use 1 test strip once daily E11.9 100 Strip 5 05/17/2024 Active FliplifeToDisrupt6 Delica Lancets 33G Use to test blood sugar once daily E11.9 100 Each 5 05/17/2024 Active Esomeprazole Magnesium 20 MG Oral Capsule Delayed Release (NexIUM) Take 1 Capsule by mouth daily before breakfast. 90 Capsule 3 05/20/2024 Active documented as of this encounter (statuses as of 06/01/2024) Active Problems Problem Noted Date Diagnosed Date [...] as of this encounter (statuses as of 06/01/2024) Resolved Problems Problem Noted Date Diagnosed Date [...] as of this encounter (statuses as of 06/01/2024) Immunizations Name Administration Dates Next Due COVID-19 mRNA, LNP-s, No Pre serve, 2-Dose Series (SweetPerk) 07/30/2021,11/30/2020,11/09/2020 COVID-19, MRNA-LNP, 23-24, P F, 30 MCG/0.3 mL, 12 YRS AND ABOVE, IM (Disrupt6-ComirnatEnhanCV) 06/30/2023 COVID-19, MRNA-LNP, 24-25, P R, 30MCG/0.3ML, IM, 12YRS AND ABOVE (SweetPerk-The Shock 3D GroupirnatEnhanCV) 06/30/2023 Covid-19, Mrna, Lnp-s, Pf, B ivalent, 30 Mcg, IM, 12 yrs and above (SweetPerk) 06/20/2022 HEP A - Hepatitis A (Adult > 18 yrs) 02/16/2010, 09/15/2009 Hepatitis B, 20+ yrs 05/15/2016,12/13/2015,11/07 Pneumococcal Conjugate Vacci ne, 20-valent (Lmaxtok87) 05/10/2024 Pneumococcal Polysaccharide PPV23 (Pneumovax) 07/30/2021,09/12/2011 Season Influenza, Quad, PF, Adjuvanted, 65+ Yrs, IM (FLUAD) 06/30/2023 Seasonal Influenza, High Dos e, Trivalent, PF, IM (Fluzone HD) 05/04/2024 Seasonal Influenza, PF, 6 M & above, IM , (FluLaval or Fluzone) 07/20/2021,05/05/2020,06/14/2019,06/01 Seasonal Influenza, Quadriva lent Hd (Fluzone Hd) 05/10/2022 Seasonal Influenza, Quadriva lent, No Preserve, IM 05/20/2017,05/15/2016,06/09/2015 06/09/2016 Seasonal Influenza, Trivalen t, (IIV3), with Preserv, (Fluzone) 06/22/2014,06/09/2013,06/26/2012,06/01,05/29/2009,08/05/2005 TD - Tetanus/Diptheria (ADULT) 10/13/2003 TDAP [...] histor y Alcohol Use Standard Drinks/Week Comments Not Currently 0 (1 standard drink = 0.6 oz pur e alcohol) rarely PHQ-2 Answer Date Recorded PHQ Adult Total Score 2 05/13/2024 Hunger Vital Sign Answer Date Recorded Within the past 12 months, y ou worried that your food would run out before you got the money to buy more. Never true 05/19/20 24 Within the past 12 months, t he food you bought just didn't last and you didn't have money to get more. Never true 05/19/2024 Childcare Answer Date Recorded Do you feel overwhelmed with taking care of a child, family member or friend? No 05/19/2024 Does your family need help f inding childcare? (Household - for ages 0-17 years) Not on file 05/19/2024 Clothing Answer Date Recorded Have you been unable to get clothing when it was really needed? No 05/19/2024 Is your family able to get c lothes or diapers when needed? (Household - for ages 0-17 years) Not on file 05/19/2024 Personal Safety Answer Date Recorded Do you feel unsafe or have concerns for your saf ety? No 05/19/2024 Do you have concerns for you r family's safety? (Household - for ages 0-17 years) Not on file 05/19/2024 Utilities Answer Date Recorded Do you have trouble paying y our heating, water, or electric bill? No 05/19/2024 Is your family able to pay t he heat, water, or electric bill? (Household - for ages 0-17 years) Not on file 05/19/2024 Does your family have access to good internet? (Household - for ages 0-17 years) Not on file 05/19/2024 Employment Status Answer Date Recorded Are you unemployed or without regular income? No 05/19/2024 Does the household have a [facility] source of income? (Household - for ages 0-17 years) Not on file 05/19/2024 Social Connections Answer Date Recorded How often do you feel lonely or isolated from th ose around you? Never 05/19/2024 Financial Resource Strain Answer Date R ecorded Do you have any trouble payi ng for your medications, or do you think you might in the future? No 05/19/2024 Does your family have troubl e paying for medicine? (Household - for ages 0-17 years) Not on file 05/19/2024 Transportation Needs Answer Date Record ed Do you have trouble getting a ride to medical visits or work? (Adult - for ages 18 years and over) Not on file 05/19/2024 Does your family have a hard time getting a ride to doctors visits? (Household - for ages 0-17 years) Not on file 05/19/2024 Has lack of transportation k ept you from medical appointments, meetings, work, or from getting things needed for daily living? Check all that apply. No 05/19/2024 Do you (or your family) have trouble finding or paying for a ride (transportation)? (Household - for ages 0-17 years) Not on file 05/19/2024 Housing Stability Answer Date Recorded Do you currently live in a s helter or have no steady place to sleep at night? No 05/19/2024 Do you think you are at risk of becoming homeless? (Adult - for ages 18 years and over) Not on file 05/19/2024 Does your family worry about paying for your home or becoming homeless? (Household - for ages 0-17 years) Not on file 0 05/19/2024 Are you homeless or worried that you might be in the future? No 05/19/2024 Are you (or your family) tyree eless or worried that you might be in the future? (Household - for ages 0-17 years) Not on file Food Insecurity Answer Date Recorded Do you need food for this week? No 05/19/2024 Are you able to get enough f ood for your family? (Household - for ages 0-17 years) Not on file 05/19/2024 Does your family need food t his week? (Household - for ages 0-17 years) Not on file 05/19/2024 Do you always have enough fo od for your family? (Household - for ages 0-17 years) Not on file 05/19/2024 Sex and Gender Information Value Date Recorded Sex Assigned at Male 04/12/2019 8:16 AM EDT Gender Identity Male 04/12/2019 8:16 AM EDT Sexual Orientation Straight 04/12/2019 8: 16 AM EDT Job Start Date Occupation Industry Not on file Not on file Not on file documented as of this encounter Miscellaneous Notes * Telephone Encounter - Kary Perez CRNP - 06/01/2024 7:58 AM EDT Please push back my appointment with the patient till after his colonoscopy on 06/11. * Telephone Encounter - Skye Lizarraga OSA - 05/28/2024 11:29 AM EDT Colon moved up 06/11 * Telephone Encounter - Anushka Moran OSA - 05/28/2024 10:47 AM EDT FYI Pt is scheduled at OR in [place] Forwarding to them to move up BRANDEN Polanco 05/28/2024 10:48 AM * Telephone Encounter - Sofía Deleon CMA - 05/26/2024 3:07 PM EDT Notified pt of FLOOR HAND note and pt voiced understanding. Informed pt scheduling will reach out to moveup procedure. * Telephone Encounter - Kary Perez CRNP - 05/26/2024 1:22 PM EDT CTAP reviewed. Overall imaging revealed moderate stool burden consistent with mild constipation. There was no evidence of an inflammatory process mass or obstruction. Liver showed mild fatty infiltration. Calcified gallstones noted in the gallbladder but no biliary dilation. Pancreas normal. Remain off of cholestyramine. Hold dicyclomine If diarrhea returns please have him let me know. Will have scheduling move up colonoscopy- June/July. Okay to be done on dual anti-platelet therapy. Please arrange with Dr. Marciano Lopez. GISSEL Anderson documented in this encounter Plan of Treatment Upcoming Encounters Date Type Department Care Team (Late st Contact Info) Description 06/01/2024 9:30 AM EDT Scheduled Telephone Care Coordination and Integration [address] [place] [address] Aleah Rock, [facility] Hog Tender [address] [place] [address] 06/01/2024 10:00 AM EDT Office Visit Cardiology, [facility] [address] [place] [address] William Snider, DO [address] [place] [address] 06/08/2024 9:30 AM EDT Scheduled Telephone Care Coordination and Integration [address] [place] [address] Aleah Rock, [facility] Tender [address] [place] [address] 06/09/2024 2:00 PM EDT Office Visit Gastroenterology, [facility] [address] [place] [address] Kary Perez CRNP [address] [place] [address] 06/11/2024 1:02 PM EDT Hospital Encounter OR [facility], Operating Room, [facility] - 4th Floor [address] [facility] [place] [phone] Cheri Amaya, [address] [place] [address] 06/11/2024 1:02 PM EDT - 06/11/2024 1:42 PM EDT Surgery OR [facility], Operating Room, [facility] - 4th Floor [address] [facility] [place] [phone] Cheri Amaya, DO [address] [place] [address] COLONOSCOPY FLEXIBLE PROXIMAL DIAGNOSTIC 06/16/2024 11:20 AM EDT Office Visit [address] [phone] Nisa Goodrich PA-C [address] [facility], [place] [address] 08/16/2024 8:00 AM EST Office Visit Pharmacy, [facility] [address] [place], [place] [address] [facility] [address] [facility] [place] [address] 09/06/2024 11:00 AM EST Office Visit Family [facility], [place] [address] [facility], [place] [phone] Nisa Goodrich PA-C [address] [facility], [place] [address] 09/08/2024 7:40 AM EST [facility] [place] [address] [facility], [place] [phone] Alonso Daigle MD [address] [facility], [place] [address] 09/14/2024 8:45 AM EST Office Visit Orthopaedics Spine Surgery, [facility] [place] [address] [place] [address] Kleber Batres MD [address] [place] [address] Scheduled Procedures Name Priority Associated Diagnoses Date/Ti me COLONOSCOPY FLEXIBLE PROXIMA L DIAGNOSTIC Recall Blood in stool 06/11/2024 1:02 PM EDT ARTHRODESIS, ANT INTERBODY, BELOW C-2 Cervical [...] Cologuard 2001 Fecal Occult Blood Test 2001 Adult Wellness Visit 2022 Diabetic Foot Exam 09/03/2024 09/03/2023, 0 02/09/2021, 10/05/2018, Additional history exists Diabetic Eye Exam 10/07/2024 10/07/2023, 09/08/2020 Albumin/Creatinine Ratio 10/08/2024 024, 05/10/2022, 09/24/2021, Additional history exists B-12 10/08/2024 10/08/2023, 09/0 05/2022, 02/09/2021, Additional history exists HbA1c 11/17/2024 05/20/2024, 01/30, 01/16/2024, Additional history exists GFR 05/12/2025 05/12/2024, 09/0 10/2023, 04/15/2024, Additional history exists Depression Screening 05/13/2025 05/13/2024 Colonoscopy 05/07/2028 05/07/2018, 09/0 01/2018, 01/13/2007 DTap/Tdap Vaccines (4 - Td or Tdap) 04/09/2029 04/09/2019, 04/05/2011, 01/30/2010, Additional history exists Colorectal Cancer Screening 04/23/2029 Sigmoidoscopy 04/23/2029 04/23/2024 Hepatitis B Vaccine Completed 05/15/2016, 12/13/2015, 11/08/2015 Zoster Vaccines Completed 02/09/2021, 09/28/2020 Influenza Vaccine (FLU shot) Completed 10/2023, 06/30/2023, 05/10/2022, Additional history exists COVID-19 Vaccine Completed 05/10/2024, , 06/30/2023, Additional history exists Pneumococcal Vaccine: 65+ Years Completed 05/10/2024, 07/30/2021, 09/12/2011 AAA Screening Completed 05/20/2024, 05/24/2022 HPV (Gardasil) Vaccine Aged Out No [...] and were consensually agreed upon. Care Teams Timber Poisoner Relationship Specialty Start Date End Date Nisa Goodrich PA-C [address] [facility] [place] [address] PCP - General Physician Hog Tender 03/14/24 documented as of this encounter
--- OUTSIDE RECORDS SUMMARY | 2024-06-04 05:50 | External Medical Summary | Summary of Care ---
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 03/15/2024 Active Clopidogrel Bisulfate 75 MG Oral Tablet (Plavix) Take 1 Tablet by mouth in the morning. 34 Tablet 11 04/16/2024 Active Vitron-C 65-125 MG Oral Tablet (Iron-Vitamin C 65-125 mg per tab) Take 1 Tablet by mouth in the morning. Active Mesalamine 1.2 GM Oral Tablet Delayed Release (Lialda)Indications :BRBPR (bright red blood per rectum),Internal hemorrhoids,Infecti ous colitis,Diarrhea of presumed infectious origin,Gastroesopha geal reflux disease without esophagitis Take 2 Tablets by mouth in the morning. 120 Tablet 05/12/2024 Active Dicyclomine HCl 10 MG Oral Capsule (Bentyl)Indications :BRBPR (bright red blood per rectum),Internal hemorrhoids,Infecti ous colitis,Diarrhea of presumed infectious origin,Gastroesopha geal reflux disease without esophagitis Take 1 Capsule by mouth in the morning and 1 Capsule before bedtime. 60 Capsule 2 05/12/2024 Active Additional Information Patient not taking.Reported on 06/01/2024 Intela Ultra 2 w/Device Kit Use as directed. Use to test blood sugar E11.9 1 Kit 05/17/2024 Active Intela Ultra In Vitro Strip (Glucose Blood) Use 1 test strip once daily E11.9 100 Strip 5 05/17/2024 Active Intela Delica Lancets 33G Use to test blood sugar once daily E11.9 100 Each 5 05/17/2024 Active Esomeprazole Magnesium 20 MG Oral Capsule Delayed Release (NexIUM) Take 1 Capsule by mouth daily before breakfast. 90 Capsule 3 05/20/2024 Active Culturelle Oral Capsule Take 1 Capsule by mouth in the morning and 1 Capsule before bedtime. Active Metoprolol Succinate ER 25 MG Oral Tablet Extended Release 24 Hour (Toprol XL) Take 1 Tablet by mouth in the morning. 34 Tablet 6 06/01/2024 Active Ranolazine ER 500 MG Oral Tablet Extended Release 12 Hour (Ranexa) Take 1 Tablet by mouth in the morning and 1 Tablet before bedtime. 60 Tablet 2 06/01/2024 Active Metoprolol Succinate ER 25 MG Oral Tablet Extended Release 24 Hour (toPROL XL)Indications:HTN, goal below 140/90,Chronic coronary artery disease,NSVT (nonsustained ventricular tachycardia) (HCC),Dyslipidemia, goal LDL below 70 Take one half Tablet by mouth in the morning. 45 Tablet 3 04/16/2024 4 Discontinu ed(Medicat ion/Dose Changed) Lisinopril 20 MG Oral Tablet (Prinivil) Take 0.5 Tablets by mouth in the morning. 4 Discontinu ed(Patient preference /discontin uation) Pantoprazole Sodium 40 MG Oral Tablet Delayed Release (Protonix) Take 1 Tablet by mouth in the morning and 1 Tablet before bedtime. 04/27/2024 4 Discontinu ed(Medicat ion List Clean Up) documented as of this [...] mRNA, LNP-s, No Pre serve, 2-Dose Series (Sribu) 07/30/2021,11/30/2020,11/09/2020 COVID-19, MRNA-LNP, 23-24, P F, 30 MCG/0.3 mL, 12 YRS AND ABOVE, IM ([employer]) 06/30/2023 COVID-19, MRNA-LNP, 24-25, P R, 30MCG/0.3ML, IM, 12YRS AND ABOVE ([employer]in) 06/30/2023 Covid-19, Mrna, Lnp-s, Pf, B ivalent, 30 Mcg, IM, 12 yrs and above (Sribu) 06/20/2022 HEP A - Hepatitis A (Adult > 18 yrs) 02/16/2010, 09/15/2009 Hepatitis B, 20+ yrs 05/15/2016,12/13/2015,11/07 Pneumococcal Conjugate Vacci ne, 20-valent ([id number]) 05/10/2024 Pneumococcal Polysaccharide PPV23 (Pneumovax) 07/30/2021,09/12/2011 Season Influenza, Quad, PF, Adjuvanted, 65+ Yrs, IM (FLUAD) 06/30/2023 Seasonal Influenza Vac., MDV , IM, 0.5 mL (Fluzone) 06/22/2014,06/09/2013,06/26/2012,06/01,05/29/2009 Seasonal Influenza, High Dos e, Trivalent, PF, IM (Fluzone HD) 05/04/2024 Seasonal Influenza, PF, 6 M & above, IM , (FluLaval or Fluzone) 07/20/2021,05/05/2020,06/14/2019,06/01 Seasonal Influenza, Quadriva lent Hd (Fluzone Hd) 05/10/2022 Seasonal Influenza, Quadriva lent, No Preserve, IM 05/20/2017,05/15/2016,06/09/2015 06/09/2016 TDAP (age 10 and older)(Boostrix) 04/09/2019 TDAP, [...] No 05/19/2024 Does the household have a re gular source of income? (Household - for ages [...] Sign Reading Time Taken Comments Blood Pressure 144/74 06/01/2024 10:07 AM EDT Pulse 88 06/01/2024 10:07 AM EDT Temperature - - Respiratory Rate 14 06/01/2024 10:0 7 AM EDT Oxygen Saturation - - Inhaled Oxygen Concentration - - Weight 110.3 kg (243 lb 3.2 oz) 024 10:07 AM EDT Height - - Body Mass Index 36.98 04/29/2024 10:46 AM EDT documented in this encounter Progress Notes * William Snider DO - 06/01/2024 9:59 AM EDT SUBJECTIVE: Patient returns today for follow up of coronary artery disease status post drug-elutingstent implantation to left anterior descending artery February 11, 2024, DOCTOR OF OSTEOPATHY of the RCA managed medically, recent GI bleeding, hypertension, and dyslipidemia. Admitted to [facility] 04/21/2024 due to rectal bleeding hemoglobin down to 11.7. Sigmoidoscopy demonstrating internal hemorrhoids and findings suggestive of infectious colitis. Stool studies positive for ETEC and norovirus infection. Treated with azithromycin for ETEC. Hgb up to 13.1 from 11.7 per CBC 05/31/2024. Previously treated with isosorbide monohydrate, however, unable to tolerate due to orthostatic symptoms in the setting of rectal bleeding. Continues to note positional lightheadedness. Reports exertional chest heaviness when he overdoes it. Denies any exertional discomfort during usual daily activities. Reports a 2nd type of chest discomfort described as a sharp and stabbing pain at rest. The sharp pains are sporadic and not associated with activity or exertion. Has not used any sublingual nitroglycerin. Exercise tolerance otherwise stable. He does not feel that stenting of the LAD changed his exertional angina to a significant extent. present for today's office visit. Offers no additional concerns/complaints. ECG: Sinus rhythm with first-degree AV block, left axis deviation. ROS: All others negative other than those noted in the HPI. Patient Active Problem List Diagnosis Generalized osteoarthritis Type 2 diabetes mellitus with hemoglobin A1c goal of less than 7.0% ([facility]) Dyslipidemia, goal LDL below 70 HTN, goal below 140/90 Primary osteoarthritis of left knee Cervical spine pain Cervical spinal stenosis Spondylosis, cervical, with myelopathy Chronic neck pain Upper extremity weakness Pre-op testing Chronic coronary artery disease NSVT (nonsustained ventricular tachycardia) ([facility]) Presence of stent in LAD coronary artery Social History Tobacco Use Smoking status: Former Current packs/day: 0.00 Average packs/day: 1 pack/day for 30.0 years (30.0 ttl pk-yrs) Types: Cigarettes Start date: 07/26/1972 Quit date: 07/26/2002 Years since quittin.8 Passive exposure: Never Smokeless tobacco: Never Tobacco comments: 30 pack year history Vaping Use Vaping status: Never Used Substance Use Topics Alcohol use: Not Currently Comment: rarely Drug use: No Review of patient's allergies indicates: No Known Allergies Current Outpatient Medications Medication Sig Dispense Refill ASPIRIN 81 MG OR TABS one tab by mouth daily 0 0 ONE DAILY MENS PO TABS 1 daily 0 Potassium Gluconate 550 MG TABS Take 1 Tablet by mouth daily. Diclofenac Sodium (VOLTAREN) 1 % gel Place [...] morning and evening meals. 180 Tablet 3 Atorvastatin Calcium 80 MG Oral Tablet (Lipitor) TAKE ONE TABLET BY MOUTH EVERY DAY 90 Tablet 2 Fluticasone Propionate 50 MCG/ACT Nasal Suspension (Flonase) ADMINISTER 2 SPRAYS INTO EACH NOSTRIL DAILY IN THE MORNING 48 g 2 Ondansetron 4 MG Oral Tablet Disintegrating (Zofran) Place 1 Tablet on tongue every 8 hours as needed for Nausea. dissolve on tongue. 20 Tablet 0 Gabapentin 100 MG Oral Capsule (Neurontin) Take 1 Capsule by mouth at bedtime. 90 Capsule 1 Ezetimibe 10 MG Oral Tablet (Zetia) Take 1 Tablet by mouth in the morning. 90 Tablet 3 Rybelsus 7 MG Oral Tablet Take 7 mg by mouth daily first thing in the morning. Metoprolol Succinate ER 25 MG Oral Tablet Extended Release 24 Hour (toPROL XL) Take one half Tabletby mouth in the morning. 45 Tablet 3 Clopidogrel Bisulfate 75 MG Oral Tablet (Plavix) Take 1 Tablet by mouth in the morning. 34 Tablet 11 Vitron-C 65-125 MG Oral Tablet (Iron-Vitamin C 65-125 mg per tab) Take 1 Tablet by mouth in the morning. Mesalamine 1.2 GM Oral Tablet Delayed Release (Lialda) Take 2 Tablets by mouth in the morning. 120 Tablet 0 Esomeprazole Magnesium 20 MG Oral Capsule Delayed Release (NexIUM) Take 1 Capsule by mouth daily before breakfast. 90 Capsule 3 Culturelle Oral Capsule Take 1 Capsule by mouth in the morning and 1 Capsule before bedtime. Dicyclomine HCl 10 MG Oral Capsule (Bentyl) Take 1 Capsule by mouth in the morning and 1 Capsule before bedtime. (Patient not taking: Reported on 06/01/2024) 60 Capsule 2 Intela Ultra 2 w/Device Kit Use as directed. Use to test blood sugar E11.9 1 Kit 0 [employer] Ultra In Vitro Strip (Glucose Blood) Use 1 test strip once daily E11.9 100 Strip 5 IG GuitarsTouch Delica Lancets 33G Use to test blood sugar once daily E11.9 100 Each 5 No current facility-administered medications for this visit. Lipid Panel Results: Results for orders placed or performed in visit on 04/22/18 LIPID PANEL Result Value Ref Range HOURS FASTING 12 hours Triglycerides 154 <200 mg/dL Cholesterol 150 <200 mg/dL HDL Cholesterol 34 (L) >39 mg/dL Cholesterol-HDL Ratio 4.4 LDL Cholesterol 85 0 - 129 mg/dL Results for orders placed or performed in visit on 10/08/23 LIPID PANEL WITH DIRECT LDL IF TG IS HIGH Result Value Ref Range Triglycerides 222 (H) <=174 mg/dL Cholesterol 154 <200 mg/dL HDL Cholesterol 32 (L) >39 mg/dL Non-HDL Cholesterol 122 <=159 mg/dL Lab Results Component Value Date/Time TSH - [facility] 2.11 09/04/2011 08:00 AM TSH - [facility] 1.60 04/05/2011 11:13 AM TSH - [facility] 0.70 01/18/2000 09:44 PM CBC Results: Results for orders placed or performed in visit on 05/20/24 CBC Result Value Ref Range WBC 6.88 4.00 - 10.80 K/uL RBC 4.27 4.50 - 5.25 M/uL HGB 12.1 (L) 14.0 - 16.8 g/dL HCT 36.8 (L) 40.0 - 48.4 % MCV 86.2 82.0 - 99.5 fL MCH 28.3 27.0 - 34.0 pg MCHC 32.9 32.0 - 36.0 g/dL RDW 15.1 11.5 - 15.5 % PLT 248 140 - 400 K/uL MPV 8.5 6.6 - 11.1 fL OBJECTIVE/PHYSICAL EXAMINATION: BP 144/74 (BP Site: Left Arm, BP Position: Sitting, BP Cuff Size: Large) | Pulse 88 | Resp 14 | Wt 110.3 kg (243 lb 3.2 oz) | BMI 36.98 kg/m | BSA 2.3 m General: NAD, AAO x3, well nourished. HEENT: Normocephalic. Atraumatic. Conjunctiva pink, no scleral icterus. No carotid bruits, the carotid upstrokes are brisk. No JVD. No HJR Heart: Regular normal S-1 and S-2 no S-3 or S-4 gallop. No murmurs or rubs appreciated. PMI is not displaced. No RV heave.Lungs: Clear bilateral without rales , rhonchi, or wheeze. Abdomen: Normal bowel sounds. Soft. Nontender. No masses or organomegaly. No abdominal bruits. Extremities: No clubbing, cyanosis, or edema.Pulses: radial=2/4, Dorsalis pedis =2/4, posterior tibial=2/4. Neuro: No focal deficits. ASSESSMENT: 1. CAD s/p AMY to LAD 02/11/2024, RCA DOCTOR OF OSTEOPATHY fills via collaterals -chronic class 2 angina 2. HTN - elevated in office 3. Dyslipidemia - borderline control with LDL of 72mg/dL 4. Ongoing rectal bleeding -stool studies positive for ETEC and noravirus -scheduled for repeat colonoscopy June 11, 2024 PLAN: Ekg I had a long discussion with the patient regarding treatment options of chronic stable angina. Agreeable to titration of Toprol-XL to 25 mg daily and addition of Ranexa. Intolerant of long-acting nitrates due to orthostatic lightheadedness. Consider addition of low-dose calcium channel radha therapy pending clinical response to medication changes. I will discuss case further with InterventionalCardiology in [place] regarding possible PCI of chronic total occlusion. Appropriate use of sublingual nitroglycerin reviewed. Patient instructed to avoid activities which typically provoke angina. Proceed with colonoscopy as scheduled. Follow Up: Return in about 6 weeks (around 07/13/2024). I spent a total of 40-54 minutes (exact time 43 mins) on the date of service in preparation, delivery, and documentation of the care provided to Almas Pack excluding any time spent in the performance of separately billed services or time spent by another provider/QHP. William Snider DO, [facility] Associate Cardiology - [facility] documented in this encounter Nursing Notes * Erica Jaquez CMA - 06/01/2024 9:58 AM EDT Examination Room: 11 Name: Almas Pack Date of : (1955). Reason for Visit: 6 week f/u Interim Hospitalization(s): [facility] d/c 04/27 Problems/Concerns: Still has bright red blood with bowel movements. Chest Pain/SOB: Episodes of sharp CP, has not used NTG. Also c/o chest heaviness, pressure. SOB, lightheadedness with exertion [facility] Discussed: No [facility] is a way you can [...] Care Team (Late st Contact Info) Description 06/08/2024 9:30 AM EDT Scheduled Telephone Care Coordination and Integration [address] [place] [address] Aleah Rock, Community Health Medical Practice Administrator [address] [place] [address] 06/09/2024 2:00 PM EDT Office Visit Gastroenterology, [facility] [address] [place] [address] Kary Perez CRNP [address] [place] [address] 06/11/2024 1:02 PM EDT Hospital Encounter OR [facility], Operating Room, [facility] - 4th Floor [address] [place] [address] Cheri Amaya, DO [address] [place] [address] 06/11/2024 1:02 PM EDT - 06/11/2024 1:42 PM EDT Surgery OR [facility], Operating Room, [facility] - 4th Floor [address] [place] [address] Cheri Amaya, DO [address] [place] [address] COLONOSCOPY FLEXIBLE PROXIMAL DIAGNOSTIC 06/16/2024 11:20 AM EDT Office Visit [facility] [address] [facility], [place] [address] Nisa Goodrich PA-C [address] [place] [address] 07/13/2024 10:00 AM EST Office Visit Cardiology, [facility] [address] [facility] [place] [place] [address] William Snider DO [address] [place] [address] 08/16/2024 8:00 AM EST Office Visit Pharmacy, [facility] [address] [facility] [place] [address] [facility] [address] [facility] [place], [place] [address] 09/06/2024 11:00 AM EST Office Visit Family [facility], [place] [address] [place] [facility] [place] [address] Nisa Goodrich PA-C [address] [place] [address] 09/08/2024 7:40 AM EST Office Visit [facility], [place] [address] [facility] [phone] Alonso Daigle MD [address] [place] [address] 09/14/2024 8:45 AM EST Office Visit Orthopaedics Spine Surgery, [facility] [address] [place] [address] Kleber Batres MD [address] [place] [address] Scheduled Orders Name Type Priority Associated Diagnoses Orde r Schedule EKG EKG Routine Other chest pain HTN, goal below 140/90 Presence of stent in LAD coronary artery Dizziness Coronary artery disease involving [place] coronary artery of [place] heart with angina pectoris (HCC) Ordered: 06/01/2024 Scheduled Procedures Name Priority Associated Diagnoses Date/Ti [...] 10/08/2023, 0 05/2022, 02/09/2021, Additional history exists HbA1c 11/17/2024 05/20/2024, 01/30, 01/16/2024, Additional history exists GFR 05/12/2025 05/12/2024, 0 10/2023, 04/15/2024, Additional history exists Depression Screening 05/13/2025 05/13/2024 Colonoscopy 05/07/2028 05/07/2018, 01/2018, 01/13/2007 DTap/Tdap Vaccines (4 - Td [...] as of this encounter Visit Diagnoses Diagnosis Coronary artery disease involving [place] coronary artery of [place] heart with angina pectoris (HCC)- Primary Other chest pain HTN, goal below 140/90 Unspecified essential hypertension Presence of stent in LAD coronary artery Postsurgical percutaneous transluminal coronary angioplasty status Dizziness Dizziness and giddiness Dyslipidemia, goal LDL below 70 Other and unspecified hyperlipidemia Blood in stool documented in this encounter Advance Directives * Full Code (Latest Code Status on File) Date Activated Date Inactivated Comments 07/05/2019 10:32 AM 07/05/2019 4:23 PM This order reflects the patients wishes and were consensually agreed upon. Care Teams Visual Education Director Relationship Specialty Start Date End Date Nisa Goodrich PA-C [address] [place] [address] PCP - General Physician Medical Practice Administrator 03/14/24 documented as of this encounter"
--- OUTSIDE RECORDS SUMMARY | 2024-06-04 05:50 | External Medical Summary | Summary of Care ---
Author Name Unknown Organization [facility] Address [address] [facility] [place] [address] Phone [phone] Care Team Providers Care Pipe Organ Tuner And Repairer Name Role Phone Nisa Goodrich PA-C Primary Care Provider [phone] Reason for Visit * Reason Comments Outpatient Testing Encounter Details Date Type Department Care Team (Late st Contact Info) Description 05/31/2024 10:00 AM EDT Laboratory Laboratory, [facility] [address] [facility] [place] [phone] [facility] [address] [facility] [place] [address] Cervical spine pain; Cervical spinal stenosis; Spondylosis, cervical, with myelopathy; Chronic neck pain; Upper extremity weakness; Pre-op testing; BRBPR (bright red blood per rectum); Infectious colitis Allergies No known active allergiesdocumented as of this encounter (statuses as of 05/31/2024) Medications Medication Sig Dispensed Refills Start Date [...] Tablets by mouth in the morning. Active QRGL Ultra 2 w/Device Kit Use as directed. Use to test blood sugar E11.9 1 Kit 05/17/2024 Active QRGL Ultra In Vitro Strip (Glucose Blood) Use 1 test strip once daily E11.9 100 Strip 5 05/17/2024 Active QRGL Delica Lancets 33G Use to test blood sugar once daily E11.9 100 Each 5 05/17/2024 Active Esomeprazole Magnesium 20 MG Oral Capsule Delayed Release (NexIUM) Take 1 Capsule by mouth daily before breakfast. 90 Capsule 3 05/20/2024 Active documented as of this encounter (statuses as of 05/31/2024) Active Problems Problem Noted Date Diagnosed Date [...] as of this encounter (statuses as of 05/31/2024) Resolved Problems Problem Noted Date Diagnosed Date [...] as of this encounter (statuses as of 05/31/2024) Immunizations Name Administration Dates Next Due COVID-19 mRNA, LNP-s, No Pre serve, 2-Dose Series (20:[employer] Mobile) 07/30/2021,11/30/2020,11/09/2020 COVID-19, MRNA-LNP, 23-24, P F, 30 MCG/0.3 mL, 12 YRS AND ABOVE, IM ([employer]ir[employer]) 06/30/2023 COVID-19, MRNA-LNP, 24-25, P R, 30MCG/0.3ML, IM, 12YRS AND ABOVE (20:20 Mobile-ComirnatNeofonie) 06/30/2023 Covid-19, Mrna, Lnp-s, Pf, B ivalent, 30 Mcg, IM, 12 yrs and above (20:20 [employer]) 06/20/2022 HEP A - Hepatitis A (Adult > 18 yrs) 02/16/2010, 09/15/2009 Hepatitis B, 20+ yrs 05/15/2016,12/13/2015,11/07 Pneumococcal Conjugate Vacci ne, 20-valent ([id number]) 05/10/2024 Pneumococcal Polysaccharide PPV23 (Pneumovax) 07/30/2021,09/12/2011 Season [...] Influenza, Trivalen t, (IIV3), with Preserv, (Fluzone) 06/22/2014,06/09/2013,06/26/2012,06/01,05/29/2009 TDAP (age 10 and older)(Boostrix) 04/09/2019 [...] Telephone Care Coordination and Integration [address] [place] [place] [address] Aleah Rock, Community Health Filtrose Crusher [address] [place] [place] [address] 06/01/2024 10:00 AM EDT Office Visit Cardiology, [facility] [address] [place] [address] William Snider, DO [address] [place] [address] 06/08/2024 9:30 AM EDT Scheduled Telephone Care Coordination and Integration [address] [place] [address] Aleah Rock, Community Health Filtrose Crusher [address] [place] [address] 06/09/2024 2:00 PM EDT Office Visit Gastroenterology, [facility] [address] [place] [address] Kary Perez CRNP [address] [place] [address] 06/11/2024 1:02 PM EDT Hospital Encounter OR [facility], Operating Room, [facility] - 4th Floor [address] [facility] [phone] Cheri Amaya, [address] [place] [address] 06/11/2024 1:02 PM EDT - 06/11/2024 1:42 PM EDT Surgery OR [facility], Operating Room, [facility] - 4th Floor [address] [facility] [place] [address] Cheri Amaya, DO [address] [place] [address] COLONOSCOPY FLEXIBLE PROXIMAL DIAGNOSTIC 07/21/2024 11:40 AM EST Office Visit [address] [place] [phone] Nisa Goodrich PA-C [address] [facility], [place] [address] 08/16/2024 8:00 AM EST Office Visit Pharmacy, [facility] [address] [facility] [place], [place] [address] [facility] [address] [facility] [place], [place] [address] 09/06/2024 11:00 AM EST Office Visit Family [facility], [place] [address] [facility], [place] [phone] Nisa Goodrich PA-C [address] [facility], [place] [address] 09/08/2024 7:40 AM EST Office Visit [facility], [place] [address] [facility], [place] [phone] Alonso Daigle MD [address] [facility], [place] [address] 09/14/2024 8:45 AM EST Office Visit Orthopaedics Spine Surgery, [facility] [address] [place] [address] Kleber Batres MD [address] [place] [address] Pending Results Name Type Priority Associated Diagnoses Date /Time CBC WITH WBC DIFFERENTIAL AND ANEMIA REFLEX WORKUP Lab Routine BRBPR (bright red blood per rectum) Infectious colitis 05/31/2024 9:58 AM EDT ANEMIA CBC Lab Routine BRBPR (bright red blood per rectum) Infectious colitis 05/31/2024 9:58 AM EDT DIFFERENTIAL, AUTOMATED Lab Routine BRBPR (bright red blood per rectum) Infectious colitis 05/31/2024 9:58 AM EDT ANEMIA REFLEX CHEMISTRY HOLD Lab Routine BRBPR (bright red blood per rectum) Infectious colitis 05/31/2024 9:58 AM EDT Scheduled Procedures Name Priority Associated [...] 10/08/2024 10/08/2023, 05/2022, 02/09/2021, Additional history exists HbA1c 11/17/2024 05/20/2024, 01/30, 01/16/2024, Additional history exists GFR 05/12/2025 05/12/2024, 10/2023, 04/15/2024, Additional history exists Depression Screening [...] this encounter Visit Diagnoses Diagnosis Cervical spine pain Cervicalgia Cervical spinal stenosis Spinal stenosis in cervical region Spondylosis, cervical, with myelopathy Cervical spondylosis with myelopathy Chronic neck pain Cervicalgia Upper extremity weakness Other musculoskeletal symptoms referable to limbs Pre-op testing Preoperative examination, unspecified BRBPR (bright red blood per rectum) Hemorrhage of rectum and anus Infectious colitis Infectious colitis, enteritis, and gastroenteritis Blood in stool documented in this encounter Advance Directives * Full Code (Latest Code Status on File) Date Activated Date Inactivated Comments 07/05/2019 10:32 AM 07/05/2019 4:23 PM This order reflects the patients wishes and were consensually agreed upon. Care Teams Pipe Organ Tuner And Repairer Relationship Specialty Start Date End Date Nisa Goodrich PA-C [address] [place] [address] PCP - General Physician Filtrose Crusher 03/14/24 documented as of this encounter
--- OUTSIDE RECORDS SUMMARY | 2024-06-04 05:50 | External Medical Summary | Summary of Care ---
Author Name Unknown Organization [facility] Address [address] [place] [address] Phone [phone] Care Team Providers Care Lead Presser Name Role Phone Nisa Goodrich PA-C Primary Care Provider [phone] Reason for Visit * Reason Onset Date Comments Appointment 05/26/2024 Dizziness, weakn ess, BP concerns Encounter Details Date Type Department Care Team (Late st Contact Info) Description 05/26/2024 Telephone [facility] [address] [place] [address] Nisa Goodrich PA-C [address] [place] [address] Appointment (Dizziness, weakness, BP nola... Allergies No known active allergiesdocumented as of [...] Tablets by mouth in the morning. Active Smacktive.com Ultra 2 w/Device Kit Use as directed. Use to test blood sugar E11.9 1 Kit 05/17/2024 Active Smacktive.com Ultra In Vitro Strip (Glucose Blood) Use 1 test strip once daily E11.9 100 Strip 5 05/17/2024 Active Aeris CommunicationsToStreamline [employer] Solutions Delica Lancets 33G Use to test blood [...] mRNA, LNP-s, No Pre serve, 2-Dose Series (Marco[employer]o [employer]) 07/30/2021,11/30/2020,11/09/2020 COVID-19, MRNA-LNP, 23-24, P F, 30 MCG/0.3 mL, 12 YRS AND ABOVE, IM (PFIZER-Comirnaty) 06/30/2023 COVID-19, MRNA-LNP, 24-25, P R, 30MCG/0.3ML, IM, 12YRS AND ABOVE (Pfizer-Comirnaty) 06/30/2023 Covid-19, Mrna, Lnp-s, Pf, B ivalent, 30 Mcg, IM, 12 yrs and above (Pfizer) 06/20/2022 HEP A - Hepatitis A (Adult > 18 yrs) 02/16/2010, 09/15/2009 Hepatitis B, 20+ yrs 05/15/2016,12/13/2015,11/07 Pneumococcal Conjugate Vacci ne, 20-valent (Ciwvatu26) 05/10/2024 Pneumococcal Polysaccharide PPV23 (Pneumovax) 07/30/2021,09/12/2011 Season [...] 05/19/2024 Does the household have a re lar source of income? (Household - for ages [...] Miscellaneous Notes * Telephone Encounter - Rosa Winters OSA - 05/31/2024 3:31 PM EDT Called and LMOM for patient to call back and schedule for acute visit * Telephone Encounter - Shaista Bernard LPN - 05/28/2024 2:17 PM EDT Routed to the correct pool, please use [address] specialty scheduling * Telephone Encounter - Jacquelyn Juan RN - 05/28/2024 11:39 AM EDT Patient is still waiting on an appointment. Please contact patient to schedule. Thanks, Jacquelyn Juan RN, BSN Float Sprinkler Truck Driver [phone] * Telephone Encounter - Barbara Bai LPN - 05/26/2024 2:03 PM EDT Staff, Please assist patient with appointment at your site See PCP's note below Thank you * Telephone Encounter - Nisa Goodrich PA-C - 05/26/2024 1:45 PM EDT this is not a work in appt - needs a regular scheduled appt in a regular spot - any provider as I have NO openings Nisa Goodrich PA-C 05/26/2024 1:45 PM * Telephone Encounter - Barbara Bai LPN - 05/26/2024 11:16 AM EDT Covering director of casework Spoke to patient today and addressed some ongoing rectal bleeding with GI Tin Hurtado (see tele encfrom today) Patient feels would like to see PCP office for acute visit BP concerns, feeling weak, lightheaded BP today 149/80 Wt stabel 239 # FBS today 110 He continues to have some lightheadedness jesus alberto with position changes and exertional chest heaviness which has not changed. This has been ongoing for past few months He would like acute appt this week Please call patient with date/time Thank you documented in this encounter Plan of Treatment Upcoming Encounters Date Type Department Care Team (Late st Contact Info) Description 06/01/2024 9:30 AM EDT Scheduled Telephone Care Coordination and Integration [address] [place] [address] Aleah Rock, Community Health Manager Transplant [address] [place] [address] 06/01/2024 10:00 AM EDT Office Visit Cardiology, [facility] [address] [place] [address] William Snider DO [address] [place] [address] 06/08/2024 9:30 AM EDT Scheduled Telephone Care Coordination and Integration [address] [place] [address] Aleah Rock, Community Health Manager Transplant [address] [place] [address] 06/09/2024 2:00 PM EDT Office Visit Gastroenterology, [facility] [address] [place] [address] Kary Perez CRNP [address] [place] [address] 06/11/2024 1:02 PM EDT Hospital Encounter OR [facility], Operating Room, [facility] - 4th Floor [address] [place] [address] [place] [phone] Cheri Amaya, DO [address] [place] [address] 06/11/2024 1:02 PM EDT - 06/11/2024 1:42 PM EDT Surgery OR [facility], Operating Room, [facility] - 4th Floor [address] [place] [address] Cheri Amaya DO [address] [employer] [place] [address] COLONOSCOPY FLEXIBLE PROXIMAL DIAGNOSTIC 06/16/2024 11:20 AM EDT Office [facility] [place] [address] [address] [facility] [address] Nisa Goodrich PA-C [address] [facility] [address] 08/16/2024 8:00 AM EST Office Visit [facility], [facility] [place] [address] [facility] [address] [facility] [place] [address] 09/06/2024 11:00 AM EST Office Visit [facility] [place] [address] [facility] [address] Nisa Goodrich PA-C [address] [facility], [place] [address] 09/08/2024 7:40 AM EST Office Visit [facility] [place] [address] [facility] [address] Alonso Daigle [facility] [address] [facility] [address] 09/14/2024 8:45 AM EST Office Visit Orthopaedics Spine Surgery, [place] [address] [place] [address] Kleber Batres MD [address] [place] [address] Scheduled Procedures Name Priority Associated Diagnoses Date/Ti [...] and were consensually agreed upon. Care Teams Lead Presser Relationship Specialty Start Date End Date Nisa Goodrich PA-C [address] [place] [address] PCP - General Physician Manager Transplant 03/14/24 documented as of this encounter
--- OUTSIDE RECORDS SUMMARY | 2024-06-04 05:50 | External Medical Summary | Summary of Care ---
Author Name Unknown Organization [facility] Address [address] [place] [address] Phone [phone] Care Team Providers Care Associate Editor Name Role Phone Nisa Goodrich PA-C Primary Care Provider [phone] Encounter Details Date Type Department Care Team (Late st Contact Info) Description 06/01/2024 9:30 AM EDT Scheduled Telephone Care Coordination and Integration [address] [place], [place] [phone] Aleah Rock, Community Health Senior Data Architect [address] [place] [address] Allergies No known active allergiesdocumented as of [...] Additional Information Patient not taking.Reported on 06/01/2024 Pied Piper 2 w/Device Kit Use as directed. Use to test blood sugar E11.9 1 Kit 05/17/2024 Active MySQUAR Ultra In Vitro Strip (Glucose Blood) Use 1 test strip once daily E11.9 100 Strip 5 05/17/2024 Active OneTouch Delica Lancets 33G Use to test blood [...] before bedtime. 60 Tablet 2 06/01/2024 Active documented as of this encounter (statuses [...] mRNA, LNP-s, No Pre serve, 2-Dose Series ([employer]atch [employer]) 07/30/2021,11/30/2020,11/09/2020 COVID-19, MRNA-LNP, 23-24, P F, 30 MCG/0.3 mL, 12 YRS AND ABOVE, IM (Brandmail Solutions-Comirnaty) 06/30/2023 COVID-19, MRNA-LNP, 24-25, P R, 30MCG/0.3ML, IM, 12YRS AND ABOVE (Wasatch [employer]fluidics-ComirnatScoutforce) 06/30/2023 Covid-19, Mrna, Lnp-s, Pf, B ivalent, 30 Mcg, IM, 12 yrs and above (Pfizer) 06/20/2022 HEP A - Hepatitis A (Adult > 18 yrs) 02/16/2010, 09/15/2009 Hepatitis B, 20+ yrs 05/15/2016,12/13/2015,11/07 Pneumococcal Conjugate Vacci ne, 20-valent (Pqssiwz90) 05/10/2024 Pneumococcal Polysaccharide PPV23 (Pneumovax) 07/30/2021,09/12/2011 Season [...] as of this encounter Progress Notes * Aleah Rock, Community Health Senior Data Architect - 06/01/2024 10:54 AM EDT Telemedicine visit: No Community Health Senior Data Architect (ANGIE) documentation: CHW outbound call to patient UTC #1 Left message with CHW number CHW will try again Aleah Rock [facility] Community Health Worker Call or Text- [phone] documented in this encounter Plan of Treatment Upcoming Encounters Date Type Department Care Team (Late st Contact Info) Description 06/08/2024 9:30 AM EDT Scheduled Telephone Care Coordination and Integration [address] [place] [address] Aleah Rock, Community Health Senior Data Architect [address] [place] [address] 06/09/2024 2:00 PM EDT Office Visit Gastroenterology, [facility] [address] [place] [address] Kary Perez CRNP [address] [place] [address] 06/11/2024 1:02 PM EDT Hospital Encounter OR [facility], Operating Room, [facility] - 4th Floor [address] [facility] [place] [phone] Cheri Amaya, [address] [place] [address] 06/11/2024 1:02 PM EDT - 06/11/2024 1:42 PM EDT Surgery OR [facility], Operating Room, [facility] - 4th Floor [address] [facility] [place] [address] Cheri Amaya, [address] [place] [address] COLONOSCOPY FLEXIBLE PROXIMAL DIAGNOSTIC 06/16/2024 11:20 AM EDT Office Visit [facility] [address] [place] [phone] Nisa Goodrich PA-C [address] [place] [address] 07/13/2024 10:00 AM EST Office Visit Cardiology, [facility] [address] [place] [address] William Snider, [address] [place] [address] 08/16/2024 8:00 AM EST Office Visit Pharmacy, [facility] [address] [place] [address] [facility] [address] [place] [address] 09/06/2024 11:00 AM EST Office Visit [place] [address] [place] [address] Nisa Goodrich PA-C [address] [place] [address] 09/08/2024 7:40 AM EST Office Visit [facility] [place] [address] [place] [facility] [place] [phone] Alonso Daigle MD [address] [place], [place] [phone] 09/14/2024 8:45 AM EST Office Visit Orthopaedics Spine Surgery, Anaya [place] [address] [place] [address] Kleber Batres MD [address] [place] [address] Scheduled Procedures Name Priority Associated Diagnoses Date/Ti [...] 10/08/2023, 090 05/2022, 02/09/2021, Additional history exists HbA1c 11/17/2024 05/20/2024, 01/30, 01/16/2024, Additional history exists GFR 05/12/2025 05/12/2024, 090 10/2023, 04/15/2024, Additional history exists Depression Screening 05/13/2025 05/13/2024 Colonoscopy 05/07/2028 05/07/2018, 090 01/2018, 01/13/2007 DTap/Tdap Vaccines (4 - Td [...] and were consensually agreed upon. Care Teams Associate Editor Relationship Specialty Start Date End Date Nisa Goodrich PA-C [address] [facility] [place] [address] PCP - General Physician Senior Data Architect 03/14/24 documented as of this encounter
--- OUTSIDE RECORDS SUMMARY | 2024-06-04 05:50 | External Medical Summary | Summary of Care ---
Author Name Unknown Organization [facility] Address [address] [place] [address] Phone [phone] Care Team Providers Care Laborer Bituminous Paving Name Role Phone Nisa Goodrich PA-C Primary Care Provider [phone] Reason for Visit * Reason Onset Date Comments FYI 05/28/2024 Chest Pain Encounter Details Date Type Department Care Team (Latest Contact Info) Description 05/28/2024 Frame Maker Telephone Care Coordination and Integration [address] [place], [place] [phone] Jacquelyn Juan, EUGENE [address] [place], [place] [phone] FYI (Chest Pain) Allergies No known active allergiesdocumented as of this encounter (statuses as of 06/02/2024) Medications Medication Sig Dispensed Refills Start Date [...] Additional Information Patient not taking.Reported on 06/01/2024 E Ink Holdings 2 w/Device Kit Use as directed. Use to test blood sugar E11.9 1 Kit 05/17/2024 Active ArthenaTouch Ultra In Vitro Strip (Glucose Blood) Use 1 test strip once daily E11.9 100 Strip 5 05/17/2024 Active ArthenaTouch Delica Lancets 33G Use to test blood sugar once daily E11.9 100 Each 5 05/17/2024 Active Esomeprazole Magnesium 20 MG Oral Capsule Delayed Release (NexIUM) Take 1 Capsule by mouth daily before breakfast. 90 Capsule 3 05/20/2024 Active documented as of this encounter (statuses as of 06/02/2024) Active Problems Problem Noted Date Diagnosed Date [...] as of this encounter (statuses as of 06/02/2024) Resolved Problems Problem Noted Date Diagnosed Date [...] as of this encounter (statuses as of 06/02/2024) Immunizations Name Administration Dates Next Due COVID-19 mRNA, LNP-s, No Pre serve, 2-Dose Series ([employer]) 07/30/2021,11/30/2020,11/09/2020 COVID-19, MRNA-LNP, 23-24, P F, 30 MCG/0.3 mL, 12 YRS AND ABOVE, IM (iiyuma-ComirnatHashgo) 06/30/2023 COVID-19, MRNA-LNP, 24-25, P R, 30MCG/0.3ML, IM, 12YRS AND ABOVE ([employer] Data-ComirnatHashgo) 06/30/2023 Covid-19, Mrna, Lnp-s, Pf, B ivalent, 30 Mcg, IM, 12 yrs and above ([employer] Data) 06/20/2022 HEP A - Hepatitis A (Adult > 18 yrs) 02/16/2010, 09/15/2009 Hepatitis B, 20+ yrs 05/15/2016,12/13/2015,11/07 Pneumococcal Conjugate Vacci ne, 20-valent (Fshuidj35) 05/10/2024 Pneumococcal Polysaccharide PPV23 (Pneumovax) 07/30/2021,09/12/2011 Season [...] encounter Miscellaneous Notes * Telephone Encounter - Jacquelyn Juan RN - 06/02/2024 8:17 AM EDT Patient was seen by Cardiology on 06/01/2024 as scheduled. Jacquelyn Juan RN, BSN Flo Frame Maker [phone] * Telephone Encounter - Jacquelyn Juan RN - 05/28/2024 11:34 AM EDT Patient has an upcoming Cardiology appointment on 06/01/2024. As an FYI in preparation for that appointment, he reports ongoing chest heaviness, which has not changed, however last night he woke from his sleep with sharp, stabbing chest pain that lasted for 45 minutes before resolving on its own. During this episode of chest pain, he did have pain that radiated down both arms. He sat up in bed andheld his chest until the pain subsided. He thought about taking TUMS but decided not to. He confirmed having Nitroglycerin available but has never taking it. He continues to have rectal bleeding and is being followed by Gastroenterology. A sooner colonoscopy procedure has been scheduled for 06/11/2024. He also reports concern that his blood pressure has increased over the past 3-4 days with readings close to 150/80; this morning's reading was 149/83 with a heart rate of 88. Nitroglycerin dosing instructions were reviewed with patient. Advised if he has additional episodesof chest pain, similar to what he experienced last night, he may try taking Nitroglycerin and if heneeds a third dose without relief of his symptoms, he should call 911 and get to the nearest emergency room. Thanks, Jacquelyn Juan RN, BSN Float Frame Maker [phone] documented in this encounter Plan of Treatment Upcoming Encounters Date Type Department Care Team (Late st Contact Info) Description 06/08/2024 9:30 AM EDT Scheduled Telephone Care Coordination and Integration [address] [place] [address] Aleah Rock, Community Health Manager Business Banking [address] [place] [address] 06/09/2024 2:00 PM EDT Office Visit Gastroenterology, [facility] [address] [place] [address] Kary Perez CRNP [address] [place] [address] 06/11/2024 1:02 PM EDT Hospital Encounter OR [facility], Operating Room, [facility] - 4th Floor [address] [place] [address] Cheri Amaya, [address] [place] [address] 06/11/2024 1:02 PM EDT - 06/11/2024 1:42 PM EDT Surgery OR [facility], Operating Room, [facility] - 4th Floor [address] [place] [address] Cheri Amaya, DO [address] [place] [address] COLONOSCOPY FLEXIBLE PROXIMAL DIAGNOSTIC 06/16/2024 11:20 AM EDT Office [facility] [place] [address] [facility] [phone] Nisa Goodrich PA-C [address] [facility] [address] 07/13/2024 10:00 AM EST Office Visit Cardiology, [facility] [address] [place] [address] William Snider, DO [address] [place] [address] 08/16/2024 8:00 AM EST Office Visit Pharmacy, [facility] [address] [place] [address] [facility] [address] [place] [address] 09/06/2024 11:00 AM EST Office [facility] [place] [address] [facility] [phone] Nisa Goodrich PA-C [address] [facility] [address] 09/08/2024 7:40 AM EST [facility] Visit [facility] [place] [address] [facility] [place] [phone] Alonso Daigle MD [address] [place] [address] 09/14/2024 8:45 AM EST Office Visit Orthopaedics Spine Surgery, [place]An[place] [address] [place] [address] Kleber Batres MD [address] [place] [address] Scheduled Procedures Name Priority Associated Diagnoses Date/Ti [...] Exam 10/07/2024 10/07/2023, 09/08/2020 Albumin/Creatinine Ratio 10/08/2024 022 024, 05/10/2022, 09/24/2021, Additional history exists B-12 [...] and were consensually agreed upon. Care Teams Laborer Bituminous Paving Relationship Specialty Start Date End Date Nisa Goodrich PA-C [address] [place] [address] PCP - General Physician Manager Business Banking 03/14/24 documented as of this encounter
--- OUTSIDE RECORDS SUMMARY | 2024-06-04 05:50 | External Medical Summary | Summary of Care ---
Author Name Unknown Organization [facility] Address [address] [facility] [place] [address] Phone [phone] Care Team Providers Care Data Processing Manager Name Role Phone Nisa Goodrich PA-C Primary Care Provider [phone] Encounter Details Date Type Department Care Team (Late st Contact Info) Description 05/26/2024 Telephone Gastroenterology, [facility] [address] [place] [address] AnaKary anand CRNP [address] [place] [address] Allergies No known active allergiesdocumented as of [...] Additional Information Patient not taking.Reported on 06/01/2024 PharmaSecure 2 w/Device Kit Use as directed. Use to test blood sugar E11.9 1 Kit 05/17/2024 Active OneTouch Ultra In Vitro Strip (Glucose Blood) Use 1 test strip once daily E11.9 100 Strip 5 05/17/2024 Active CellmaxTouch Delica Lancets 33G Use to test blood sugar once daily E11.9 100 Each 5 05/17/2024 Active Esomeprazole Magnesium 20 MG Oral Capsule Delayed Release (NexIUM) Take 1 Capsule by mouth daily before breakfast. 90 Capsule 3 05/20/2024 Active Metoprolol Succinate ER 25 MG Oral Tablet Extended Release 24 Hour (toPROL XL)Indications:HTN, goal below 140/90,Chronic coronary artery disease,NSVT (nonsustained ventricular tachycardia) ([facility]),Dyslipidemia, goal LDL below 70 Take one half Tablet by mouth in the morning. 45 Tablet 3 04/16/2024 4 Discontinu ed(Medicat ion/Dose Changed) Lisinopril 20 MG Oral Tablet (Prinivil) Take 0.5 Tablets by mouth in the morning. 4 Discontinu ed(Patient preference /discontin uation) documented [...] mRNA, LNP-s, No Pre serve, 2-Dose Series (Verafin) 07/30/2021,11/30/2020,11/09/2020 COVID-19, MRNA-LNP, 23-24, P F, 30 MCG/0.3 mL, 12 YRS AND ABOVE, IM (Heyday-JumpSoftirnatOpara) 06/30/2023 COVID-19, MRNA-LNP, 24-25, P R, 30MCG/0.3ML, IM, 12YRS AND ABOVE (Verafin-JumpSoftirnatOpara) 06/30/2023 Covid-19, Mrna, Lnp-s, Pf, B ivalent, 30 Mcg, IM, 12 yrs and above (Verafin) 06/20/2022 HEP A - Hepatitis A (Adult > 18 yrs) 02/16/2010, 09/15/2009 Hepatitis B, 20+ yrs 05/15/2016,12/13/2015,11/07 Pneumococcal Conjugate Vacci ne, 20-valent ([id number]) 05/10/2024 Pneumococcal Polysaccharide PPV23 (Pneumovax) 07/30/2021,09/12/2011 Season Influenza, Quad, PF, Adjuvanted, 65+ Yrs, IM (FLUAD) 06/30/2023 Seasonal Influenza Vac., MDV , IM, 0.5 mL (Fluzone) 06/22/2014,06/09/2013,06/26/2012,06/01,05/29/2009,08/05/2005 Seasonal Influenza, High Dos e, Trivalent, PF, IM (Fluzone HD) 05/04/2024 Seasonal Influenza, PF, 6 M & above, IM , (FluLaval or Fluzone) 07/20/2021,05/05/2020,06/14/2019,06/01 Seasonal Influenza, Quadriva lent Hd (Fluzone Hd) 05/10/2022 Seasonal Influenza, Quadriva lent, No Preserve, IM 05/20/2017,05/15/2016,06/09/2015 06/09/2016 TD - Tetanus/Diptheria (ADULT) 10/13/2003 TDAP (age [...] encounter Miscellaneous Notes * Telephone Encounter - Anushka Moran OSA - 06/02/2024 1:07 PM EDT Done * Telephone Encounter - Kary Perez CRNP - 06/01/2024 7:58 AM EDT Please push back my appointment with the patient till after his colonoscopy on 06/11. * Telephone Encounter - Skye Lizarraga OSA - 05/28/2024 11:29 AM EDT Colon moved up 06/11 * Telephone Encounter - Anushka Moran OSA - 05/28/2024 10:47 AM EDT FYI Pt is scheduled at OR in [place] Forwarding to them to move up BRANDEN Polanco 05/28/2024 10:48 AM * Telephone Encounter - Sofía Deleon CMA - 05/26/2024 3:07 PM EDT Notified pt of GISSEL note and pt voiced understanding. Informed pt [...] know. Will have scheduling move up colonoscopy- . Okay to be done on dual anti-platelet therapy. Please arrange with Dr. Marciano Lopez. GISSEL Anderson documented in this encounter Plan of Treatment Upcoming Encounters Date Type Department Care Team (Late st Contact Info) Description 06/08/2024 9:30 AM EDT Scheduled Telephone Care Coordination and Integration [address] [place] [address] Aleah Rock, Community Health Nip Wrapper [address] [place] [address] 06/11/2024 1:02 PM EDT Hospital Encounter OR [facility], Operating Room, [facility] - 4th Floor [address] [facility] [phone] Cheri Amaya, DO [address] [place] [address] 06/11/2024 1:02 PM EDT - 06/11/2024 1:42 PM EDT Surgery OR [facility], Operating Room, [facility] - 4th Floor [address] [facility] [place] [address] Cheri Amaya, [address] [place] [address] COLONOSCOPY FLEXIBLE PROXIMAL DIAGNOSTIC 06/16/2024 11:20 AM EDT Office Visit [facility] [address] [place] [address] Nisa Goodrich PA-C [address] [place] [address] 06/21/2024 11:00 AM EDT Office Visit Gastroenterology, [facility] [address] [place] [address] Kary Perez CRNP [address] [place] [address] 07/13/2024 10:00 AM EST Office Visit Cardiology, [facility] [address] [place] [address] William Snider DO [address] [place] [address] 08/16/2024 8:00 AM EST Office Visit Pharmacy, [facility] [address] [place] [address] [facility] [address] [place] [address] 09/06/2024 11:00 AM EST Office Visit [place] [address] [place] [phone] Nisa Goodrich PABrinaC [address] [place], [place] [phone] 09/08/2024 7:40 AM EST Office Visit [facility] [address] [place] [facility] [place] [phone] Alonso Daigle MD [address] [place], [place] [phone] 09/14/2024 8:45 AM EST Office Visit Orthopaedics Spine Surgery, Anaya [place] [address] [place] [address] Kleber Batres MD [address] [place] [address] Scheduled Procedures Name Priority Associated Diagnoses Date/Ti [...] and were consensually agreed upon. Care Teams Data Processing Manager Relationship Specialty Start Date End Date Nisa Goodrich PA-C [address] [facility] [place] [address] PCP - General Physician Nip Wrapper 03/14/24 documented as of this encounter
--- OUTSIDE RECORDS SUMMARY | 2024-06-04 05:51 | External Medical Summary | Summary of Care ---
Author Name Unknown Organization [facility] Address [address] [facility] [place] [address] Phone [phone] Care Team Providers Care Stage Setting Painter Apprentice Name Role Phone Nisa Goodrich PA-C Primary Care Provider [phone] Reason for Visit * Reason Onset Date Comments Rectal Bleeding 05/26/2024 Encounter Details Date Type Department Care Team (Late st Contact Info) Description 05/26/2024 Telephone Gastroenterology, [facility] [address] [place] [address] Kary Perez CRNP [address] [place] [address] Rectal Bleeding Allergies No known active allergiesdocumented as of this encounter (statuses as of 05/26/2024) Medications Medication Sig Dispensed Refills Start Date [...] Tablets by mouth in the morning. Active Smoltek ABuch Ultra 2 w/Device Kit Use as directed. Use to test blood sugar E11.9 1 Kit 05/17/2024 Active Powered Now Ultra In Vitro Strip (Glucose Blood) Use 1 test strip once daily E11.9 100 Strip 5 05/17/2024 Active Powered Now Delica Lancets 33G Use to test blood sugar once daily E11.9 100 Each 5 05/17/2024 Active Esomeprazole Magnesium 20 MG Oral Capsule Delayed Release (NexIUM) Take 1 Capsule by mouth daily before breakfast. 90 Capsule 3 05/20/2024 Active documented as of this encounter (statuses as of 05/26/2024) Active Problems Problem Noted Date Diagnosed Date [...] as of this encounter (statuses as of 05/26/2024) Resolved Problems Problem Noted Date Diagnosed Date [...] as of this encounter (statuses as of 05/26/2024) Immunizations Name Administration Dates Next Due COVID-19 mRNA, LNP-s, No Pre serve, 2-Dose Series (Apogenix) 07/30/2021,11/30/2020,11/09/2020 COVID-19, MRNA-LNP, 23-24, P F, 30 MCG/0.3 mL, 12 YRS AND ABOVE, IM (Yorumla.com-Comirnaty) 06/30/2023 COVID-19, MRNA-LNP, 24-25, P R, 30MCG/0.3ML, IM, 12YRS AND ABOVE (Apogenix-ComirnatSnacksquare) 06/30/2023 Covid-19, Mrna, Lnp-s, Pf, B ivalent, 30 Mcg, IM, 12 yrs and above (Apogenix) 06/20/2022 HEP A - Hepatitis A (Adult > 18 yrs) 02/16/2010, 09/15/2009 Hepatitis B, 20+ yrs 05/15/2016,12/13/2015,11/07 Pneumococcal Conjugate Vacci ne, 20-valent ([id number]) 05/10/2024 Pneumococcal Polysaccharide PPV23 (Pneumovax) 07/30/2021,09/12/2011 Season [...] encounter Miscellaneous Notes * Telephone Encounter - Barbara Bai LPN - 05/26/2024 11:13 AM EDT Spoke to patient- Review of GI recommendations Advised no strenuous activities at all. Keeping well hydrated Advised to report any further rectal bleeding Review of upcoming appts 06/01 Cardiology and 06/09 GI We discussed him seeing PCP for soon appt d/t BP elevation and overall how feeling He would like to proceed Will send PCP office message about getting acute appt Pt verbalizes understanding * Telephone Encounter - Kary Perez CRNP - 05/26/2024 10:13 AM EDT We will likely need to proceed with colonoscopy prior to September on DAPT. I will discuss this with him at follow-up on 06/09. I do not have a CT results back yet. They are still in process. Recommend avoidance of strenuous activities. GISSEL Anderson * Telephone Encounter - Barbara Bai LPN - 05/26/2024 9:41 AM EDT Kary, Return call from patient Yesterday afternoon after we spoke about stopped Cholestyramine powder (see tele enc dated 05/25) Pthas not had since 05/24 Patient reports large episode blood and clots with BM late yesterday afternoon No further bleeding since. After this was feeling exceptional weak and washed out. Slept for 2 hours and then woke up for a bit and went back to bed and slept all night This morning still feeling weak and "wiped out" No appetite. Some intermittent nausea but no vomiting Wt stable at 239 # BP today 149/80 FBS today 110; Ranging recently 110-167 RLQ belly pain about the same; still present most of the time Describes as sharp pain Afebrile + lightheadedness continues to be present Urinating but at times does not feel that is emptying bladder fully Chest heaviness with exertion He does report having increase in activity on Friday of pushing skid of 1 ton of pellets. Did notdo any heavy lifting but was pushing. He has not had any increase in activity since Friday He is asking for recommendations due to feeling poorly and he is asking about CT A/P results. Thank you * Telephone Encounter - Barbara Bai LPN - 05/26/2024 9:09 AM EDT Follow-up Routine- pt left VM message that having change in bowels again Attempted Phone Call First Attempt Call Outcome Left Voicemail/Message Plan Will await call back. Left messages on both home and mobile number documented in this encounter Plan of Treatment Upcoming Encounters Date Type Department Care Team (Late st Contact Info) Description 05/31/2024 10:00 AM EDT Laboratory Laboratory, [facility] [address] [phone] [facility] [address] [facility] [place] [address] 06/01/2024 9:30 AM EDT Scheduled Telephone Care Coordination and Integration [address] [place] [address] Aleah Rock, Community Health Foundation Relations Director [address] [place] [address] 06/01/2024 10:00 AM EDT Office Visit Cardiology, [facility] [address] [facility] [place] [address] William Snider DO [address] [place] [address] 06/08/2024 9:30 AM EDT Scheduled Telephone Care Coordination and Integration [address] [facility] [place] [address] Aleah Rock, Community Health Foundation Relations Director [address] [place] [address] 06/09/2024 2:00 PM EDT Office Visit Gastroenterology, [facility] [address] [facility] [place] [address] Kary Perez CRNP [address] [place] [address] 07/21/2024 11:40 AM EST Office Visit [facility] [place] [address] [facility] [address] Nisa Goodrich PA-C [address] [facility], [place] [address] 08/16/2024 8:00 AM EST Office Visit Pharmacy, [facility] [address] [place] [address] [facility] [address] [place] [address] 09/06/2024 11:00 AM EST Office Visit [facility] [address] [facility] [address] Nisa Goodrich PA-C [address] [facility], [place] [address] 09/07/2024 10:22 AM EST Hospital Encounter OR [facility], Operating Room, [facility] - 4th Floor [address] [facility] [place] [phone] Marciano Lopez MD [address] [place] [address] 09/07/2024 10:22 AM EST - 09/07/2024 10:58 AM EST Surgery OR [facility], Operating Room, [facility] - 4th Floor [address] [place] [phone] Marciano Lopez MD [address] [place] [address] COLONOSCOPY FLEXIBLE PROXIMAL DIAGNOSTIC 09/08/2024 7:40 AM EST Office Visit [facility] [address] [place] [phone] Alonso Daigle MD [address] [place] [address] 09/14/2024 8:45 AM EST Office Visit [facility] Spine Surgery, [place] [address] [place] [address] Kleber Batres MD [address] [place] [address] Scheduled Procedures Name Priority Associated Diagnoses Date/Ti me COLONOSCOPY FLEXIBLE PROXIMA L DIAGNOSTIC Recall Blood in stool 09/07/2024 10:22 AM EST ARTHRODESIS, ANT INTERBODY, BELOW C-2 Cervical spine [...] Depression Screening 05/13/2025 05/13/2024 Colonoscopy 05/07/2028 05/07/2018, 0 01/2018, 01/13/2007 DTap/Tdap Vaccines (4 - Td or Tdap) 04/09/2029 04/09/2019, 04/05/2011, 01/30/2010, Additional history exists Colorectal Cancer Screening 04/23/2029 Sigmoidoscopy 04/23/2029 04/23/2024 Hepatitis B Vaccine Completed 05/15/2016, 12/13/2015, 11/08/2015 Zoster Vaccines Completed 02/09/2021, 09/28/2020 AAA Screening Completed 05/24/2022 Influenza Vaccine (FLU shot) Completed 10/2023, 06/30/2023, 05/10/2022, Additional history exists COVID-19 Vaccine Completed 05/10/2024, , 06/30/2023, Additional history exists Pneumococcal Vaccine: 65+ Years Completed 05/10/2024, 07/30/2021, 09/12/2011 HPV (Gardasil) Vaccine Aged Out No lo [...] and were consensually agreed upon. Care Teams Stage Setting Painter Apprentice Relationship Specialty Start Date End Date Nisa Goodrich PA-C [address] [place] [address] PCP - General Physician Foundation Relations Director 03/14/24 documented as of this encounter
--- OUTSIDE RECORDS SUMMARY | 2024-06-04 05:51 | External Medical Summary ---
Author Name Unknown Address Unknown Organization [id number]:[facility] [place] - [address] [place] [id number] Laboratory Report Ordering Provider Test Date Status CHENG PIKE 05/31/2024 09:58:45 Final Observation Date Value Abnormality Reference (Units ) Status WBC, Total 05/31/2024 09:58:45 5.86 4.00-10.8 0 (K/uL) Final RBC 05/31/2024 09:58:45 4.55 4.50-5.25 (M/uL) Final Hemoglobin 05/31/2024 09:58:45 13.1 Below low normal 14 .0-16.8 (g/dL) Final Anemia reflex testing trigge rs on a HGB < 12.0 for Females and HGB < 13.0 for Males in accordance with the WHO Anemia Guidelines
Anemia reflex testing triggers on a HGB < 12.0 for Females and HGB < 13.0 for Males in accordance with the WHO Anemia Guidelines HCT 05/31/2024 09:58:45 39.5 Below low normal 40. 0-48.4 (%) Final MCV 05/31/2024 09:58:45 86.8 82.0-99.5 (fL) Final MCH 05/31/2024 09:58:45 28.8 27.0-34.0 (pg) Final MCHC 05/31/2024 09:58:45 33.2 32.0-36.0 (g/dL) Final RDW 05/31/2024 09:58:45 15.0 11.5-15.5 (%) Final Platelets 05/31/2024 09:58:45 249 140-400 (K /uL) Final MPV 05/31/2024 09:58:45 9.4 6.6-11.1 ( fL) Final Nucleated erythrocytes/100 leukocytes [Ratio] in Blood by Automated count 05/31/2024 09:58:45 0 <=0 (/100 WBCs) Final Performing Location [facility] [place] - [address] [facility] [address]
--- OUTSIDE RECORDS SUMMARY | 2024-06-04 05:51 | External Medical Summary ---
Author Name Unknown Address Unknown Organization K01:[facility] [place] [address] [facility] [place] [address] Laboratory Report Ordering Provider Test Date Status CHENG PIKE 05/31/2024 09:58:45 Final Observation Date Value Abnormality Reference (Units ) Status SYNC LEUKOCYTES IN BLOOD BY AUTOMATED COUNT 05/31/2024 09:58:45 5.86 4.00-10.80 (K/uL) Final Segs 05/31/2024 09:58:45 58.8 40.0-75.0 (%) Final Lymphs % 05/31/2024 09:58:45 23.5 18.0-42.0 (%) Final Monos 05/31/2024 09:58:45 12.5 Above high normal 1.0-11.0 (%) Final Eosinophils 05/31/2024 09:58:45 3.6 0.0-6.0 (%) Final Basos 05/31/2024 09:58:45 1.4 0.0-2.0 (%) Final Immature Granulocyte, Percent 05/31/2024 09:58:45 0.2 0.0-2.0 (%) Final Absolute Segs 05/31/2024 09:58:45 3.45 1.80-7.70 (K/uL) Final Lymphs, absolute 05/31/2024 09:58:45 1.38 1.00-4.80 (K/ul) Final Monos, Abs 05/31/2024 09:58:45 0.73 0.00-1.10 (K/uL) Final Eos, Abs 05/31/2024 09:58:45 0.21 0.00-0.70 (K/uL) Final Basos, Abs 05/31/2024 09:58:45 0.08 0.00-0.20 (K/uL) Final Immature Granulocytes, Number 05/31/2024 09:58:45 0.01 0.00-0.20 (K/uL) Final Performing Location [facility] [place] [facility] [place] [address] [facility] [address]
--- OUTSIDE RECORDS SUMMARY | 2024-06-04 05:51 | External Medical Summary | Summary of Care ---
Author Name Unknown Organization [facility] Address [address] [facility] [place] [address] Phone [phone] Care Team Providers Care Pantry Goods Maker Name Role Phone Nisa Goodrich PA-C Primary Care Provider [phone] Encounter Details Date Type Department Care Team (Late st Contact Info) Description 05/26/2024 Telephone Gastroenterology, [facility] [address] [place] [address] AnaKary anand CRNP [address] [place] [address] Allergies No known active allergiesdocumented as of this encounter (statuses as of 05/28/2024) Medications Medication Sig Dispensed Refills Start Date [...] Tablets by mouth in the morning. Active ISI Life Sciencesuch Ultra 2 w/Device Kit Use as directed. Use to test blood sugar E11.9 1 Kit 05/17/2024 Active SiftyNetTouch Ultra In Vitro Strip (Glucose Blood) Use 1 test strip once daily E11.9 100 Strip 5 05/17/2024 Active SiftyNetTouch Delica Lancets 33G Use to test blood sugar once daily E11.9 100 Each 5 05/17/2024 Active Esomeprazole Magnesium 20 MG Oral Capsule Delayed Release (NexIUM) Take 1 Capsule by mouth daily before breakfast. 90 Capsule 3 05/20/2024 Active documented as of this encounter (statuses as of 05/28/2024) Active Problems Problem Noted Date Diagnosed Date [...] as of this encounter (statuses as of 05/28/2024) Resolved Problems Problem Noted Date Diagnosed Date [...] as of this encounter (statuses as of 05/28/2024) Immunizations Name Administration Dates Next Due COVID-19 mRNA, LNP-s, No Pre serve, 2-Dose Series (mymission2) 07/30/2021,11/30/2020,11/09/2020 COVID-19, MRNA-LNP, 23-24, P F, 30 MCG/0.3 mL, 12 YRS AND ABOVE, IM (Gradient X-ComirnatWhitevector) 06/30/2023 COVID-19, MRNA-LNP, 24-25, P R, 30MCG/0.3ML, IM, 12YRS AND ABOVE (mymission2-Tutor TechnologiesirnatWhitevector) 06/30/2023 Covid-19, Mrna, Lnp-s, Pf, B ivalent, 30 Mcg, IM, 12 yrs and above (mymission2) 06/20/2022 HEP A - Hepatitis A (Adult > 18 yrs) 02/16/2010, 09/15/2009 Hepatitis B, 20+ yrs 05/15/2016,12/13/2015,11/07 Pneumococcal Conjugate Vacci ne, 20-valent ([id number]) 05/10/2024 Pneumococcal Polysaccharide PPV23 (Pneumovax) 07/30/2021,09/12/2011 Season [...] No 05/19/2024 Does the household have a [facility] source of income? (Household - for ages [...] FYI Pt is scheduled at OR in [place] Forwarding to them to move up BRANDEN [...] Description 05/31/2024 10:00 AM EDT Laboratory Laboratory, [facility] [address] [facility] [place] [phone] Ellie Hurtado [facility] [address] [facility] [place] [address] 06/01/2024 9:30 AM EDT Scheduled Telephone Care Coordination and Integration [address] [place] [address] Aleah Rock, Community Health Record Clerk [address] [place] [address] 06/01/2024 10:00 AM EDT Office Visit Cardiology, [facility] [address] [facility] [place] [address] William Snider DO [address] [facility] [place] [address] 06/08/2024 9:30 AM EDT Scheduled Telephone Care Coordination and Integration [address] [facility] [place] [address] Aleah Rock, Community Health Record Clerk [address] [facility] [place] [address] 06/09/2024 2:00 PM EDT Office Visit Gastroenterology, [facility] [address] [place] [address] Kary Perez CRNP [address] [place] [address] 07/21/2024 11:40 AM EST [address] [phone] Nisa Goodrich PA-C [address] [facility] [address] 08/16/2024 8:00 AM EST Office Visit Pharmacy, [facility] [address] [facility] [place] [address] [facility] [place] [address] 09/06/2024 11:00 AM EST [address] [phone] Nisa Goodrich PA-C [address] [facility] [address] 09/07/2024 10:22 AM EST Hospital Encounter OR [facility], Operating Room, [facility] - 4th Floor [address] [place] [address] Marciano Lopez MD [address] [place] [address] 09/07/2024 10:22 AM EST - 09/07/2024 10:58 AM EST Surgery OR [facility], Operating Room, [facility] - 4th Floor [address] [place] [address] Marciano Lopez MD [address] [place] [address] COLONOSCOPY FLEXIBLE PROXIMAL DIAGNOSTIC 09/08/2024 7:40 AM EST Office Visit [facility] [address] [place] [address] Alonso Daigle MD [address] [place] [address] 09/14/2024 8:45 AM EST Office Visit Orthopaedics Spine Surgery, [place]aya [place] [address] [place] [address] Kleber Batres MD [address] [place] [address] Scheduled Procedures Name Priority Associated Diagnoses Date/Ti [...] and were consensually agreed upon. Care Teams Pantry Goods Maker Relationship Specialty Start Date End Date Nisa Goodrich PA-C [address] [facility] [place] [address] PCP - General Physician Record Clerk 03/14/24 documented as of this encounter
--- OUTSIDE RECORDS SUMMARY | 2024-06-04 05:51 | External Medical Summary | Summary of Care ---
Author Name Unknown Organization [facility] Address [address] [facility] [place] [address] Phone [phone] Care Team Providers Care Nutrition Services Worker Name Role Phone Nisa Goodrich PA-C Primary Care Provider [phone] Reason for Visit * Reason Onset Date Comments Rectal Bleeding 05/26/2024 Encounter Details Date Type Department Care Team (Late st Contact Info) Description 05/26/2024 Telephone Gastroenterology, [facility] [address] [place] [address] Kary Perez CRNP [address] [place] [address] Rectal Bleeding Allergies No known active allergiesdocumented [...] Tablets by mouth in the morning. Active Dattouch Ultra 2 w/Device Kit Use as directed. Use to test blood sugar E11.9 1 Kit 05/17/2024 Active ZetaRx Biosciences Ultra In Vitro Strip (Glucose Blood) Use 1 test strip once daily E11.9 100 Strip 5 05/17/2024 Active ZetaRx Biosciences Delica Lancets 33G Use to test blood [...] mRNA, LNP-s, No Pre serve, 2-Dose Series (SergeMD) 07/30/2021,11/30/2020,11/09/2020 COVID-19, MRNA-LNP, 23-24, P F, 30 MCG/0.3 mL, 12 YRS AND ABOVE, IM (Suzerein Solutions-Comirnaty) 06/30/2023 COVID-19, MRNA-LNP, 24-25, P R, 30MCG/0.3ML, IM, 12YRS AND ABOVE (SergeMD-ComirnatGeneCapture) 06/30/2023 Covid-19, Mrna, Lnp-s, Pf, B ivalent, 30 Mcg, IM, 12 yrs and above (SergeMD) 06/20/2022 HEP A - Hepatitis A (Adult > 18 yrs) 02/16/2010, 09/15/2009 Hepatitis B, 20+ yrs 05/15/2016,12/13/2015,11/07 Pneumococcal Conjugate Vacci ne, 20-valent ([id number]) 05/10/2024 Pneumococcal Polysaccharide PPV23 (Pneumovax) 07/30/2021,09/12/2011 Season [...] Description 05/31/2024 10:00 AM EDT Laboratory Laboratory, [facility] [place] [phone] [facility] [address] [facility] [place] [address] 06/01/2024 9:30 AM EDT Scheduled Telephone Care Coordination and Integration [address] [place] [address] Aleah Rock, Community Health Safety Lamp Keeper [address] [place] [address] 06/01/2024 10:00 AM EDT Office Visit Cardiology, [facility] [address] [facility] [place] [address] William Snider DO [address] [facility] [place] [address] 06/08/2024 9:30 AM EDT Scheduled Telephone Care Coordination and Integration [address] [facility] [place] [address] Aleah Rock, Community Health Safety Lamp Keeper [address] [place] [address] 06/09/2024 2:00 PM EDT Office Visit Gastroenterology, [facility] [address] [facility] [place] [address] Kary Perez CRNP [address] [place] [address] 07/21/2024 11:40 AM EST Office Visit [facility] [place] [address] [facility] [address] Nisa Goodrich PA-C [address] [facility], [place] [address] 08/16/2024 8:00 AM EST Office Visit Pharmacy, [facility] [address] [place] [address] [facility] [address] [place] [address] 09/06/2024 11:00 AM EST Office Visit [facility] [address] [facility] [address] Nisa Goodrich PA-C [address] [facility], [place] [address] 09/07/2024 10:22 AM EST Hospital Encounter OR [facility], Operating Room, [facility] - 4th Floor [address] [facility] [place] [phone] Marciano Lopez MD [address] [place] [address] 09/07/2024 10:22 AM EST - 09/07/2024 10:58 AM EST Surgery OR [facility], Operating Room, [facility] - 4th Floor [address] [place] [phone] Marciano Lopez MD [address] [place] [address] COLONOSCOPY FLEXIBLE PROXIMAL DIAGNOSTIC 09/08/2024 7:40 AM EST Office Visit [facility] [address] [place] [phone] Alonso Daigle MD [address] [place] [address] 09/14/2024 8:45 AM EST Office Visit Orthopaedics Spine Surgery, [place] [address] [place] [address] Kleber Batres MD [address] [place] [address] Scheduled Procedures Name Priority Associated Diagnoses Date/Ti [...] and were consensually agreed upon. Care Teams Nutrition Services Worker Relationship Specialty Start Date End Date Nisa Goodrich PA-C [address] [place] [address] PCP - General Physician Safety Lamp Keeper 03/14/24 documented as of this encounter
--- OUTSIDE RECORDS SUMMARY | 2024-06-04 05:51 | External Medical Summary | Summary of Care ---
Author Name Unknown Organization [facility] Address [address] [facility] [place] [address] Phone [phone] Care Team Providers Care Clicking Machine Operator Name Role Phone Nisa Goodrich PA-C Primary Care Provider [phone] Encounter Details Date Type Department Care Team (Late st Contact Info) Description 05/26/2024 Telephone Gastroenterology, [facility] [address] [place] [address] AnaKary anand CRNP [address] [place] [address] Allergies No known active allergiesdocumented as of [...] Tablets by mouth in the morning. Active OsComp Systemsuch Ultra 2 w/Device Kit Use as directed. Use to test blood sugar E11.9 1 Kit 05/17/2024 Active Insignia TechnologiesTouch Ultra In Vitro Strip (Glucose Blood) Use 1 test strip once daily E11.9 100 Strip 5 05/17/2024 Active Insignia TechnologiesTouch Delica Lancets 33G Use to test blood [...] mRNA, LNP-s, No Pre serve, 2-Dose Series (KirkeWeb) 07/30/2021,11/30/2020,11/09/2020 COVID-19, MRNA-LNP, 23-24, P F, 30 MCG/0.3 mL, 12 YRS AND ABOVE, IM (AUTOFACT-ComirnatSimris Alg) 06/30/2023 COVID-19, MRNA-LNP, 24-25, P R, 30MCG/0.3ML, IM, 12YRS AND ABOVE (KirkeWeb-OxynadeirnatSimris Alg) 06/30/2023 Covid-19, Mrna, Lnp-s, Pf, B ivalent, 30 Mcg, IM, 12 yrs and above (KirkeWeb) 06/20/2022 HEP A - Hepatitis A (Adult > 18 yrs) 02/16/2010, 09/15/2009 Hepatitis B, 20+ yrs 05/15/2016,12/13/2015,11/07 Pneumococcal Conjugate Vacci ne, 20-valent ([id number]) 05/10/2024 Pneumococcal Polysaccharide PPV23 (Pneumovax) 07/30/2021,09/12/2011 Season [...] No 05/19/2024 Does the household have a [facility] source of income? (Household - [...] encounter Miscellaneous Notes * Telephone Encounter - Skye Lizarraga OSA - 05/28/2024 11:29 AM EDT Colon moved up 06/11 * Telephone Encounter - Anushka Moran OSA - 05/28/2024 10:47 AM EDT ADRIANI Pt is scheduled at OR in [place] Forwarding to them to move up BRANDEN Polanco 05/28/2024 10:48 AM * Telephone Encounter - Sofía Deleon CMA - 05/26/2024 3:07 PM EDT Notified pt of SILK SCREEN PRINTING RACKER note and pt voiced understanding. Informed pt [...] Description 05/31/2024 10:00 AM EDT [facility] [place] [phone] Ellie Hurtado [address] [facility] [place] [address] 06/01/2024 9:30 AM EDT Scheduled Telephone Care Coordination and Integration [address] [place] [address] Aleah Rock, Community Health Returned Goods Repairer [address] [place] [address] 06/01/2024 10:00 AM EDT Office Visit Cardiology, [facility] [address] [place] [address] William Snider, DO [address] [place] [address] 06/08/2024 9:30 AM EDT Scheduled Telephone Care Coordination and Integration [address] [place] [address] Aleah Rock, Community Health Returned Goods Repairer [address] [place] [address] 06/09/2024 2:00 PM EDT Office Visit Gastroenterology, [facility] [address] [place] [address] Kary Perez CRNP [address] [place] [address] 06/11/2024 1:02 PM EDT Hospital Encounter OR [facility], Operating Room, [facility] - 4th Floor [address] [facility] [place] [phone] Cheri Amaya, [address] [place] [address] 06/11/2024 1:02 PM EDT - 06/11/2024 1:42 PM EDT Surgery OR [facility], Operating Room, [facility] - 4th Floor [address] [facility] [place] [phone] Cheri Amaya, DO [address] [place] [address] COLONOSCOPY FLEXIBLE PROXIMAL DIAGNOSTIC 07/21/2024 11:40 AM EST Office Visit [address] [phone] Nisa Goodrich PA-C [address] [facility], [place] [address] 08/16/2024 8:00 AM EST Office Visit Pharmacy, [facility] [address] [place], [place] [address] [facility] [address] [place] [address] 09/06/2024 11:00 AM EST Office Visit Family [facility], [place] [address] [facility], [place] [phone] Nisa Goodrich PA-C [address] [facility], [place] [address] 09/08/2024 7:40 AM EST Office Visit [facility], [place] [address] [facility], [place] [phone] Alonso Daigle MD [address] [facility], [place] [address] 09/14/2024 8:45 AM EST Office Visit Orthopaedics Spine Surgery, [place] [address] [place] [address] Kleber Batres MD [address] [place] [address] Scheduled Procedures Name Priority Associated Diagnoses Date/Ti [...] and were consensually agreed upon. Care Teams Clicking Machine Operator Relationship Specialty Start Date End Date Nisa Goodrich PA-C [address] [facility] [place] [address] PCP - General Physician Returned Goods Repairer 03/14/24 documented as of this encounter
--- OUTSIDE RECORDS SUMMARY | 2024-06-04 05:52 | External Medical Summary | Summary of Care ---
Author Name Unknown Organization [facility] Address [address] [facility] [place] [address] Phone [phone] Care Team Providers Care Events Intern Name Role Phone Nisa Goodrich PA-C Primary Care Provider [phone] Reason for Visit * Reason Onset Date Comments Update 05/25/2024 Encounter Details Date Type Department Care Team (Late st Contact Info) Description 05/25/2024 Telephone Gastroenterology, [facility] [address] [place] [address] Kary Perez CRNP [address] [place] [address] Update Allergies No known active allergiesdocumented as of this encounter (statuses as of 05/25/2024) Medications Medication Sig Dispensed Refills Start Date End Date Status ASPIRIN 81 MG OR TABS one tab by mouth daily 0 0 5 Active ONE DAILY MENS PO TABS 1 daily 0 6 Active Potassium Gluconate 550 MG TABS Take 1 Tablet by mouth daily. 9 Active Diclofenac Sodium (VOLTAREN) 1 % [...] evening meals. 180 Tablet 3 4 Active Atorvastatin Calcium 80 MG Oral Tablet (Lipitor) TAKE ONE TABLET BY MOUTH EVERY DAY 90 Tablet 2 4 12/16/19 25 Active Fluticasone Propionate 50 MCG/ACT Nasal Suspension (Flonase) ADMINISTER 2 SPRAYS INTO EACH NOSTRIL DAILY IN THE MORNING 48 g 2 4 12/16/19 25 Active Ondansetron 4 MG Oral Tablet Disintegrating (Zofran)Indications :Nausea Place 1 Tablet on tongue every 8 hours as needed for Nausea. dissolve on tongue. 20 Tablet 4 Active Gabapentin 100 MG Oral Capsule (Neurontin) Take 1 Capsule by mouth at bedtime. 90 Capsule 1 4 Active Ezetimibe 10 MG Oral Tablet (Zetia) Take 1 Tablet by mouth in the morning. 90 Tablet 3 4 Active Rybelsus 7 MG Oral Tablet Take 7 mg by mouth daily first thing in the morning. 4 Active Metoprolol Succinate ER 25 MG Oral Tablet Extended Release 24 Hour (toPROL XL)Indications:HTN, goal below 140/90,Chronic coronary artery disease,NSVT (nonsustained ventricular tachycardia) (HCC),Dyslipidemia, goal LDL below 70 Take one half Tablet by mouth in the morning. 45 Tablet 3 4 Active Clopidogrel Bisulfate 75 MG Oral Tablet (Plavix) Take 1 Tablet by mouth in the morning. 34 Tablet 11 4 Active Vitron-C 65-125 MG Oral Tablet (Iron-Vitamin C 65-125 mg per tab) Take 1 Tablet by mouth in the morning. Active Mesalamine 1.2 GM Oral Tablet Delayed Release (Lialda)Indications :BRBPR (bright red blood per rectum),Internal hemorrhoids,Infecti ous colitis,Diarrhea of presumed infectious origin,Gastroesopha geal reflux disease without esophagitis Take 2 Tablets by mouth in the morning. 120 Tablet 4 Active Dicyclomine HCl 10 MG Oral Capsule (Bentyl)Indications :BRBPR (bright red blood per rectum),Internal hemorrhoids,Infecti ous colitis,Diarrhea of presumed infectious origin,Gastroesopha geal reflux disease without esophagitis Take 1 Capsule by mouth in the morning and 1 Capsule before bedtime. 60 Capsule 2 4 Active Lisinopril 20 MG Oral Tablet (Prinivil) Take 0.5 Tablets by mouth in the morning. Active WaysGo Ultra 2 w/Device Kit Use as directed. Use to test blood sugar E11.9 1 Kit 4 Active WaysGo Ultra In Vitro Strip (Glucose Blood) Use 1 test strip once daily E11.9 100 Strip 5 4 Active WaysGo Delica Lancets 33G Use to test blood sugar once daily E11.9 100 Each 5 4 Active Esomeprazole Magnesium 20 MG Oral Capsule Delayed Release (NexIUM) Take 1 Capsule by mouth daily before breakfast. 90 Capsule 3 4 Active Cholestyramine 4 GM Oral Packet (Questran)Indicatio ns:BRBPR (bright red blood per rectum),Internal hemorrhoids,Infecti ous colitis,Diarrhea of presumed infectious origin,Gastroesopha geal reflux disease without esophagitis Take 1 Packet by mouth in the morning and 1 Packet before bedtime. mixed with liquid. Must separate medication by 4 hours from other meds.. 180 Packet 1 4 05/25/20 24 Discontinued documented as of this encounter (statuses as of 05/25/2024) Active Problems Problem Noted Date Diagnosed Date [...] as of this encounter (statuses as of 05/25/2024) Resolved Problems Problem Noted Date Diagnosed Date [...] as of this encounter (statuses as of 05/25/2024) Immunizations Name Administration Dates Next Due COVID-19 mRNA, LNP-s, No Pre serve, 2-Dose Series (whistleBox) 07/30/2021,11/30/2020,11/09/2020 COVID-19, MRNA-LNP, 23-24, P F, 30 MCG/0.3 mL, 12 YRS AND ABOVE, IM (Spotify-Comirnat) 06/30/2023 COVID-19, MRNA-LNP, 24-25, P R, 30MCG/0.3ML, IM, 12YRS AND ABOVE (Pfizer-Comirnaty) 06/30/2023 Covid-19, Mrna, Lnp-s, Pf, B ivalent, 30 Mcg, IM, 12 yrs and above (Pfizer) 06/20/2022 HEP A - Hepatitis A (Adult > 18 yrs) 02/16/2010, 09/15/2009 Hepatitis B, 20+ yrs 05/15/2016,12/13/2015,11/07 Pneumococcal Conjugate Vacci ne, 20-valent ([id number]) 05/10/2024 Pneumococcal Polysaccharide PPV23 (Pneumovax) 07/30/2021,09/12/2011 Season [...] encounter Miscellaneous Notes * Telephone Encounter - Bubb, Barbara A, PAINT LINE PRODUCTION SUPERVISOR - 05/25/2024 2:45 PM EDT Spoke to patient Review of GI recommendations Will hold cholestyramine at this time Advised to report any recurrence of diarrhea CT A/P results still pending Pt verbalizes understanding and did not have any further questions CM to f/u in 2 days for update * Telephone Encounter - Kary Perez CRNP - 05/25/2024 2:32 PM EDT Now the bowels have slowed down please have him hold cholestyramine I want him to let me know if diarrhea restarts with holding of this medication. I am glad that the bleeding has significantly lessened. Will await CTAP results. GISSEL Anderson * Telephone Encounter - Barbara Bia LPN - 05/25/2024 1:53 PM EDT GI, Community Health worker spoke to patient today for weekly follow up Her note as follows : Spoke to patient stated he is still weak and fatigued, just does not feel like he is getting better Bowels had not moved for 4 days, ,then when they moved stool was semi formed,very little blood yesterday some clots seen Today bowels moved very little blood did not see clots Blood pressure this morning was 150/80 Blood Sugar yesterday 122 Denies any increase in right lower abdominal pain Declines Nausea/ Vomiting Chest pressure is at baseline, Increased with exertion moved some pellets and had increased chest pressure Blood Pressure was 172/87 Still has lightheadedness when going from sitting to standing Swelling in Ankles feels hard as a rock, CHW asked if he could push in and if it leaves an indent, stated ankles are to hard Still has urgency to urinate goes every 2 hours but does not feel output is adequate. 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 documented in this encounter Plan of Treatment Upcoming Encounters Date Type Department Care Team (Late st Contact Info) Description 05/31/2024 10:00 AM EDT Laboratory Laboratory, [facility] [address] [facility] [place] [phone] [facility] [address] [facility] [place] [address] 06/01/2024 9:30 AM EDT Scheduled Telephone Care Coordination and Integration [address] [place] [address] Aleah Rock, Community Health Procurement Agent [facility] [place] [address] 06/01/2024 10:00 AM EDT Office Visit Cardiology, [facility] [address] [place] [address] William Snider DO [address] [facility] [place] [address] 06/08/2024 9:30 AM EDT Scheduled Telephone Care Coordination and Integration [address] [place] [address] Aleah Rock, Community Health Procurement Agent [address] [place] [address] 06/09/2024 2:00 PM EDT Office Visit Gastroenterology, [facility] [address] [facility] [place] [address] Kary Perez CRNP [address] [facility] [place] [address] 07/21/2024 11:40 AM EST Office Visit [address] [phone] Nisa Goodrich PA-C [address] [facility] [place] [address] 08/16/2024 8:00 AM EST Office Visit Pharmacy, [facility] [place] [address] [facility] [address] [place] [address] 09/06/2024 11:00 AM EST Office Visit [facility], [place] [address] [place] [facility] [place] [phone] Nisa Goodrich PA-C [address] [facility] [place] [address] 09/07/2024 10:22 AM EST Hospital Encounter OR [facility], Operating Room, [facility] - 4th Floor [address] [place] [phone] Marciano Lopez MD [address] [place] [address] 09/07/2024 10:22 AM EST - 09/07/2024 10:58 AM EST Surgery OR [facility], Operating Room, [facility] - 4th Floor [address] [facility] [place] [phone] Marciano Lopez MD [address] [place] [address] COLONOSCOPY FLEXIBLE PROXIMAL DIAGNOSTIC 09/08/2024 7:40 AM EST Office Visit [facility], [place] [address] [address] [facility] [phone] Alonso [facility]igle MD [address] [facility] [address] 09/14/2024 8:45 AM EST Office Visit Orthopaedics Spine Surgery, [facility] [place] [address] [place] [phone] Kleber Batres MD [address] [place] [address] Scheduled Procedures Name Priority Associated Diagnoses Date/Ti [...] and were consensually agreed upon. Care Teams Events Intern Relationship Specialty Start Date End Date Nisa Goodrich PA-C [address] [facility] [place] [address] PCP - General Physician Procurement Agent 03/14/24 documented as of this encounter
--- OUTSIDE RECORDS SUMMARY | 2024-06-04 05:52 | External Medical Summary | Summary of Care ---
Author Name Unknown Organization [facility] Address [address] [place] [address] Phone [phone] Care Team Providers Care Cma Or Lpn Name Role Phone Nisa Goodrich PA-C Primary Care Provider [phone] Encounter Details Date Type Department Care Team (Late st Contact Info) Description 05/25/2024 11:30 AM EDT Scheduled Telephone Care Coordination and Integration [address] [place], [place] [id number] Aleah Rock, Community Health Granulator [address] [place] [address] Allergies No known active allergiesdocumented as of [...] Tablet by mouth in the morning. Active Cholestyramine 4 GM Oral Packet (Questran)Indication s:BRBPR (bright red blood per rectum),Internal hemorrhoids,Infectio us colitis,Diarrhea of presumed infectious origin,Gastroesophag eal reflux disease without esophagitis Take 1 Packet by mouth in the morning and 1 Packet before bedtime. mixed with liquid. Must separate medication by 4 hours from other meds.. 180 Packet 1 05/12/2024 Active Mesalamine 1.2 GM Oral Tablet Delayed [...] Tablets by mouth in the morning. Active PlusBlue Solutions Ultra 2 w/Device Kit Use as directed. Use to test blood sugar E11.9 1 Kit 05/17/2024 Active PlusBlue Solutions Ultra In Vitro Strip (Glucose Blood) Use 1 test strip once daily E11.9 100 Strip 5 05/17/2024 Active kidthinguch Delica Lancets 33G Use to test blood [...] mRNA, LNP-s, No Pre serve, 2-Dose Series (PurposeMatch (formerly SPARXlife)) 07/30/2021,11/30/2020,11/09/2020 COVID-19, MRNA-LNP, 23-24, P F, 30 [...] yrs 05/15/2016,12/13/2015,11/07 Pneumococcal Conjugate Vacci ne, 20-valent ([id number]) 05/10/2024 Pneumococcal Polysaccharide PPV23 (Pneumovax) 07/30/2021,09/12/2011 Season [...] Progress Notes * Aleah Rock, Community Health Granulator - 05/25/2024 1:04 PM EDT Telemedicine visit: No Community Health Granulator (ANGIE) documentation: CHW outbound call Spoke to patient stated he is still weak and fatigued, just does not feel like he is getting better Bowels had not moved for 4 days, ,then when they moved stool was semi formed very little blood yesterday some clots seen Today [...] HGB was at 12.1 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 Gastro on June 09 Concern that he is not feeling better Aleah Rock [facility] Community Health Worker Call or Text- [phone] documented in this encounter Plan of Treatment Upcoming Encounters Date Type Department Care Team (Late st Contact Info) Description 05/31/2024 10:00 AM EDT Laboratory Laboratory, [address] [phone] Ellie Hurtados [address] [facility] [place] [address] 06/01/2024 9:30 AM EDT Scheduled Telephone Care Coordination and Integration [address] [place] [address] Aleah Rock, Community Health Granulator [address] [facility] [place] [address] 06/01/2024 10:00 AM EDT Office Visit Cardiology, [facility] [address] [facility] [place] [address] William Snider DO [address] [place] [address] 06/08/2024 9:30 AM EDT Scheduled Telephone Care Coordination and Integration [address] [place] [address] Aleah Rock, Community Health Granulator [address] [place] [address] 06/09/2024 2:00 PM EDT Office Visit Gastroenterology, [facility] [address] [place] [address] Kary Perez CRNP [address] [place] [address] 07/21/2024 11:40 AM EST Office Visit [place] [address] [facility] [phone] Nisa Goodrich PA-C [address] [place] [address] 08/16/2024 8:00 AM EST Office Visit Pharmacy, [facility] [place] [address] [facility] [address] [place] [address] 09/06/2024 11:00 AM EST Office Visit [place] [address] [facility] [place] [phone] Nisa Goodrich PA-C [address] [facility] [place] [address] 09/07/2024 10:22 AM EST Hospital Encounter OR [facility], Operating Room, [facility] - 4th Floor [address] [place] [address] Marciano Lopez MD [address] [place] [address] 09/07/2024 10:22 AM EST - 09/07/2024 10:58 AM EST Surgery OR [facility], Operating Room, [facility] - 4th Floor [address] [place] [phone] Marciano Lopez MD [address] [place] [address] COLONOSCOPY FLEXIBLE PROXIMAL DIAGNOSTIC 09/08/2024 7:40 AM EST Office Visit [facility] [address] [place] [phone] Alonso Daigle MD [address] [place] [address] 09/14/2024 8:45 AM EST Office Visit Orthopaedics Spine Surgery, [facility] [place] [address] [place] [address] Kleber Batres MD [address] [place] [address] Scheduled Procedures Name Priority Associated Diagnoses Date/Ti [...] and were consensually agreed upon. Care Teams Cma Or Lpn Relationship Specialty Start Date End Date Nisa Goodrich PA-C [address] [facility] [place] [address] PCP - General Physician Granulator 03/14/24 documented as of this encounter
--- OUTSIDE RECORDS SUMMARY | 2024-06-04 05:52 | External Medical Summary | Summary of Care ---
Author Name Unknown Organization [facility] Address [address] [place] [address] Phone [phone] Care Team Providers Care Catering Cook Name Role Phone Nisa Goodrich PA-C Primary Care Provider +1 [phone] Encounter Details Date Type Department Care Team (Late st Contact Info) Description 05/25/2024 11:30 AM EDT Scheduled Telephone Care Coordination and Integration [address], [place] [phone] Aleah Rock, Community Health Roll Out Manager [address] [place] [address] Allergies No known active allergiesdocumented as of [...] Tablets by mouth in the morning. Active byUs Ultra 2 w/Device Kit Use as directed. Use to test blood sugar E11.9 1 Kit 05/17/2024 Active byUs Ultra In Vitro Strip (Glucose Blood) Use 1 test strip once daily E11.9 100 Strip 5 05/17/2024 Active CallMDuch Delica Lancets 33G Use to test blood [...] mRNA, LNP-s, No Pre serve, 2-Dose Series (Banter!) 07/30/2021,11/30/2020,11/09/2020 COVID-19, MRNA-LNP, 23-24, P F, 30 [...] yrs 05/15/2016,12/13/2015,11/07 Pneumococcal Conjugate Vacci ne, 20-valent ([id number]) 05/10/2024 Pneumococcal Polysaccharide PPV23 (Pneumovax) 07/30/2021,09/12/2011 Season [...] as of this encounter Progress Notes * Barbara Bai LPN - 05/25/2024 1:55 PM EDT Update sent to GI- see tele enc dated today * Aelah Rock, Community Health Roll Out Manager - 05/25/2024 1:04 PM EDT Telemedicine visit: No Community Health Roll Out Manager (ANGIE) documentation: CHW outbound call Spoke to [...] HGB was at 12.1 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 Gastro on June 09 Concern that he is not feeling better Aleah Rock [facility] Community Health Worker Call or Text- [phone] documented in this encounter Plan of Treatment Upcoming Encounters Date Type Department Care Team (Late st Contact Info) Description 05/31/2024 10:00 AM EDT Laboratory Laboratory, [facility] [address] [place] [phone] Ellie Hurtado [address] [place] [address] 06/01/2024 9:30 AM EDT Scheduled Telephone Care Coordination and Integration [address] [facility] [place] [address] Aleah Rock, Community Health Roll Out Manager [address] [place] [address] 06/01/2024 10:00 AM EDT Office Visit Cardiology, [facility] [address] [place] [address] William Snider DO [address] [place] [address] 06/08/2024 9:30 AM EDT Scheduled Telephone Care Coordination and Integration [address] [place] [address] Aleah Rock, Community Health Roll Out Manager [address] [place] [address] 06/09/2024 2:00 PM EDT Office Visit [facility]astroenterology, [facility] [place] [address] Kary Perez CRNP 132 [facility] [place] [address] 07/21/2024 11:40 AM EST Office Visit [place] [address] [place] [phone] Nisa Goodrich PA-C [address] [place] [address] 08/16/2024 8:00 AM EST Office Visit Pharmacy, [facility] [place] [address] [facility] [address] [place] [address] 09/06/2024 11:00 AM EST Office Visit [place] [address] [place] [phone] Nias Goodrich PA-C [address] [place] [address] 09/07/2024 10:22 AM EST Hospital Encounter OR [facility], Operating Room, [facility] - 4th Floor [address] [place] [address] Marciano Lopez MD [address] [place] [address] 09/07/2024 10:22 AM EST - 09/07/2024 10:58 AM EST Surgery OR [facility], Operating Room, [facility] - 4th Floor [address] [facility] [place] [phone] Marciano Lopez MD [address] [place] [address] COLONOSCOPY FLEXIBLE PROXIMAL DIAGNOSTIC 09/08/2024 7:40 AM EST Office Visit [facility] [address] [place] [phone] Alonso Daigle MD [address] [place] [address] 09/14/2024 8:45 AM EST Office Visit Orthopaedics Spine Surgery, [facility] Fadi Garciawn [address] [place] [address] Kleber Batres MD [address] [place] [address] Scheduled Procedures Name Priority Associated Diagnoses Date/Ti [...] and were consensually agreed upon. Care Teams Catering Cook Relationship Specialty Start Date End Date Nisa Goodrich PA-C [address] [facility] [place] [address] PCP - General Physician Roll Out Manager 03/14/24 documented as of this encounter
--- OUTSIDE RECORDS SUMMARY | 2024-06-04 05:52 | External Medical Summary | Summary of Care ---
Author Name Unknown Organization [facility] Address [address] [place] [address] Phone [phone] Care Team Providers Care Manager Embalmer Funeral Director Name Role Phone Nisa Goodrich PA-C Primary Care Provider [phone] [phone] Encounter Details Date Type Department Care Team (Late st Contact Info) Description 05/19/2024 3:20 PM EDT Scheduled Telephone Care Coordination and Integration [address] [place] [address] Aleah Rock, Community Health Cardiograph Operator [address] [place] [address] Allergies No known active allergiesdocumented as of this encounter (statuses as of 05/19/2024) Medications Medication Sig Dispensed Refills Start Date End Date Status ASPIRIN 81 MG OR TABS one tab by mouth daily 0 0 11/23/2004 Active ONE DAILY MENS PO TABS 1 daily 0 03/24/2006 Active FISH OIL 1000 MG PO CPDR 1 Daily 1 Cap 0 11/20/2011 Active Potassium Gluconate 550 MG TABS Take [...] dissolve on tongue. 20 Tablet 02/09/2024 Active Esomeprazole Magnesium 20 MG Oral Capsule [...] Tablets by mouth in the morning. Active BLUE HOLDINGS Ultra 2 w/Device Kit Use as directed. Use to test blood sugar E11.9 1 Kit 05/17/2024 Active BLUE HOLDINGS Ultra In Vitro Strip (Glucose Blood) Use 1 test strip once daily E11.9 100 Strip 5 05/17/2024 Active tabulateToCommProve Delica Lancets 33G Use to test blood sugar once daily E11.9 100 Each 5 05/17/2024 Active documented as of this encounter (statuses as of 05/19/2024) Active Problems Problem Noted Date Diagnosed Date [...] as of this encounter (statuses as of 05/19/2024) Resolved Problems Problem Noted Date Diagnosed Date [...] as of this encounter (statuses as of 05/19/2024) Immunizations Name Administration Dates Next Due COVID-19 mRNA, LNP-s, No Pre serve, 2-Dose Series (Pfizer) 07/30/2021,11/30/2020,11/09/2020 COVID-19, MRNA-LNP, 23-24, P F, 30 [...] yrs 05/15/2016,12/13/2015,11/07 Pneumococcal Conjugate Vacci ne, 20-valent ([id number]) 05/10/2024 Pneumococcal Polysaccharide PPV23 (Pneumovax) 07/30/2021,09/12/2011 Season [...] Progress Notes * Barbara Bai LPN - 05/19/2024 4:43 PM EDT Noted. Information passed onto Gastro [facility] See today's tele enc * Aleah Rock, Community Health Cardiograph Operator - 05/19/2024 3:57 PM EDT Telemedicine visit: No Community Health Cardiograph Operator (ANGIE) documentation: CHW outbound appointment 2x lightheaded today Today bowels moved when wiping Dark black spots that were clots, dark red blood, bowels only moved once today May and had BM and no Blood May 15 and Dark Red Blood Has nausea Denies vomiting chest pressure increases Shortness of breath is at baseline most times increases with exertion and takes a while to get backto baseline Patient is still having lightheadedness especially when doing a lot of walking Denies Weakness and Fatigue Has decreased appetite Patient took vitals today he reported Pulse 84 BP 130/74 Wt 239 BS 145 that was taken directly after he ate chicken noodle soup Educated to do first thing in am before eating or 3 hrs after eating, suggested also when gets lightheaded to take BS. Patient expresses concern why he is not getting better. Also expressed his ct has a high copay and not sure its affordable made him aware he can do paymentplans and we also have uncompensated care if he is eligible Aleah Rock [facility] Community Health Worker Call or Text- [phone] documented in this encounter Plan of Treatment Upcoming Encounters Date Type Department Care Team (Late st Contact Info) Description 05/20/2024 11:45 AM EDT Imaging Radiology [facility] 1st Floor, [address] [place] [address] 05/25/2024 11:30 AM EDT Scheduled Telephone Care Coordination and Integration [address] [place] [address] Aleah Rock, Community Health Cardiograph Operator [address] [place] [address] 05/31/2024 10:00 AM EDT Laboratory Laboratory, [facility] [place] [phone] Ellie Hurtado [facility] [place] [address] 06/01/2024 9:30 AM EDT Scheduled Telephone Care Coordination and Integration [address] [place] [address] Aleah Rock, Community Health Cardiograph Operator [facility] [place] [address] 06/01/2024 10:00 AM EDT Office Visit Cardiology, [facility] 132 [facility] [place] [address] William Snider DO [address] [facility] [place] [address] 06/08/2024 9:30 AM EDT Scheduled Telephone Care Coordination and Integration [address] [place] [address] Aleah Rock, Community Health Cardiograph Operator [address] [place] [address] 06/09/2024 2:00 PM EDT Office Visit Gastroenterology, [facility] 132 [facility] [place] [address] Kary Perez CRNP 132 [facility] [place] [address] 07/21/2024 11:40 AM EST Office Visit [facility] [address] [place] [phone] Nisa Goodrich PA-C [address] [place] [address] 08/16/2024 8:00 AM EST Office Visit Pharmacy, [facility] [address] [place] [address] [facility] [address] [place] [address] 09/06/2024 11:00 AM EST Office [facility] [address] [facility] [phone] Nisa Goodrich PA-C [address] [facility] [address] 09/07/2024 10:22 AM EST Hospital Encounter OR [facility], Operating Room, [facility] - 4th Floor [address] [place] [phone] Marciano Lopez MD [address] [place] [address] 09/07/2024 10:22 AM EST - 09/07/2024 10:58 AM EST Surgery OR [facility], Operating Room, [facility] - 4th Floor [address] [place] [phone] Marciano Lopez MD 132 [facility] [place] [address] COLONOSCOPY FLEXIBLE PROXIMAL DIAGNOSTIC 09/08/2024 7:40 AM EST Office Visit [facility] [address] [place] [phone] Alonso Daigle MD [address] [facility] [place] [address] 09/14/2024 8:45 AM EST Office Visit Orthopaedics Spine Surgery, [facility] [address] [place] [address] Kleber Batres MD [address] [place] [address] Scheduled Procedures Name Priority Associated Diagnoses Date/Ti [...] Blood Test 2001 Adult Wellness Visit 2022 HbA1c 08/17/2024 02/16/2024, 12/30, 10/08/2023, Additional history exists Diabetic Foot Exam 09/03/2024 09/03/2023, 0 02/09/2021, 10/05/2018, Additional history exists Diabetic Eye Exam 10/07/2024 10/07/2023, 09/08/2020 Albumin/Creatinine Ratio 10/08/2024 024, 05/10/2022, 09/24/2021, Additional history exists B-12 10/08/2024 10/08/2023, 05/2022, 02/09/2021, Additional history exists GFR 05/12/2025 05/12/2024, 10/2023, [...] and were consensually agreed upon. Care Teams Manager Embalmer Funeral Director Relationship Specialty Start Date End Date Nisa Goodrich PA-C [address] [facility] [place] [address] PCP - General Physician Cardiograph Operator 03/14/24 documented as of this encounter
--- OUTSIDE RECORDS SUMMARY | 2024-06-04 05:52 | External Medical Summary ---
Author Name Unknown Address Unknown Organization [facility] [place] [address] [place] [address] Laboratory Report Ordering Provider Test Date Status CHENG PIKE 05/20/2024 13:37:54 Final Observation Date Value Abnormality Reference (Units ) Status SYNC LEUKOCYTES IN BLOOD BY AUTOMATED COUNT 05/20/2024 13:37:54 6.88 4.00-10.80 (K/uL) Final Segs 05/20/2024 13:37:54 59.7 40.0-75.0 (%) Final Lymphs % 05/20/2024 13:37:54 22.7 18.0-42.0 (%) Final Monos 05/20/2024 13:37:54 12.8 Above high normal 1.0-11.0 (%) Final Eosinophils 05/20/2024 13:37:54 3.9 0.0-6.0 (%) Final Basos 05/20/2024 13:37:54 0.9 0.0-2.0 (%) Final Absolute Segs 05/20/2024 13:37:54 4.11 1.80-7.70 (K/uL) Final Lymphs, absolute 05/20/2024 13:37:54 1.56 1.00-4.80 (K/ul) Final Monos, Abs 05/20/2024 13:37:54 0.88 0.00-1.10 (K/uL) Final Eos, Abs 05/20/2024 13:37:54 0.27 0.00-0.70 (K/uL) Final Basos, Abs 05/20/2024 13:37:54 0.06 0.00-0.20 (K/uL) Final Performing Location [facility] 0 - [address] [place] [address]
--- OUTSIDE RECORDS SUMMARY | 2024-06-04 05:52 | External Medical Summary | Summary of Care ---
Author Name Unknown Organization [facility] Address [address] [place] [address] Phone [phone] Care Team Providers Care Environmental Field Technician Name Role Phone Nisa Goodrich PA-C Primary Care Provider +1 [phone] Encounter Details Date Type Department Care Team (Late st Contact Info) Description 05/19/2024 3:20 PM EDT Scheduled Telephone Care Coordination and Integration [address] [place] [address] Aleah Rock, Community Health Hadoop Infrastructure Architect [address] [place] [address] Allergies No known active allergiesdocumented as of [...] Tablets by mouth in the morning. Active Toushay - It's what's in store Ultra 2 w/Device Kit Use as directed. Use to test blood sugar E11.9 1 Kit 05/17/2024 Active Toushay - It's what's in store Ultra In Vitro Strip (Glucose Blood) Use 1 test strip once daily E11.9 100 Strip 5 05/17/2024 Active DripDropToEco-Site Delica Lancets 33G Use to test blood [...] yrs 05/15/2016,12/13/2015,11/07 Pneumococcal Conjugate Vacci ne, 20-valent ([email or web address]) 05/10/2024 Pneumococcal Polysaccharide PPV23 (Pneumovax) 07/30/2021,09/12/2011 Season [...] PM EDT Noted. Information passed onto Gastro [facility] See today's tele enc * Aleah Rock, Community Health Hadoop Infrastructure Architect - 05/19/2024 3:57 PM EDT Telemedicine visit: No Community Health Hadoop Infrastructure Architect (ANGIE) documentation: CHW outbound appointment 2x lightheaded [...] have uncompensated care if he is eligible Alaeh Rock [facility] Community Health Worker Call or Text- [phone] documented in this encounter Plan of Treatment Upcoming Encounters Date Type Department Care Team (Late st Contact Info) Description 05/20/2024 11:45 AM EDT Imaging Radiology [facility] 1st Floor, [address] [place] [address] 05/25/2024 11:30 AM EDT Scheduled Telephone Care Coordination and Integration [address] [place] [address] Aleah Rock, Community Health Hadoop Infrastructure Architect [address] [place] [address] 05/31/2024 10:00 AM EDT Laboratory Laboratory, [facility] 132 [facility] [place] [phone] Ellie Hurtado [facility] [place] [address] 06/01/2024 9:30 AM EDT Scheduled Telephone Care Coordination and Integration [address] [place] [address] Aleah Rock, Community Health Hadoop Infrastructure Architect [facility] [place] [address] 06/01/2024 10:00 AM EDT Office Visit Cardiology, [facility] 132 [facility] [place] [address] William Snider DO 132 [facility] [place] [address] 06/08/2024 9:30 AM EDT Scheduled Telephone Care Coordination and Integration [address] [place] [address] Aleah Rock, Community Health Hadoop Infrastructure Architect [address] [place] [address] 06/09/2024 2:00 PM EDT Office Visit Gastroenterology, [facility] 132 [facility] [place] [address] Kary Perez CRNP 132 [facility] [place] [address] 07/21/2024 11:40 AM EST Office Visit [facility] [address] [place] [phone] Nisa Goodrich PA-C [address] [place] [address] 08/16/2024 8:00 AM EST Office Visit Pharmacy, [facility] [address] [place] [address] [facility] [address] [place] [address] 09/06/2024 11:00 AM EST Office Visit [facility] [address] [facility] [phone] Nisa Goodrich PA-C [address] [facility] [address] 09/07/2024 10:22 AM EST Hospital Encounter OR [facility], Operating Room, [facility] - 4th Floor [address] [place] [phone] Marciano Lopez MD [address] [place] [address] 09/07/2024 10:22 AM EST - 09/07/2024 10:58 AM EST Surgery OR [facility], Operating Room, [facility] - 4th Floor [address] [place] [phone] Marciano Lopez MD 132 [facility] [place] [address] COLONOSCOPY FLEXIBLE PROXIMAL DIAGNOSTIC 09/08/2024 7:40 AM EST Office Visit [facility] [address] [place] [facility] [place] [phone] Alonso Daigle MD [address] [facility] [place] [address] 09/14/2024 8:45 AM EST Office Visit Orthopaedics Spine Surgery, [facility] [address] [address] [place] [address] Kleber Batres MD [address] [place] [address] Scheduled Procedures Name Priority Associated Diagnoses Date/Ti [...] and were consensually agreed upon. Care Teams Environmental Field Technician Relationship Specialty Start Date End Date Nisa Goodrich PA-C [address] [facility] [place] [address] PCP - General Physician Hadoop Infrastructure Architect 03/14/24 documented as of this encounter
--- OUTSIDE RECORDS SUMMARY | 2024-06-04 05:52 | External Medical Summary | Summary of Care ---
Author Name Unknown Organization [facility] Address [address] [place] [address] Phone [phone] Care Team Providers Care Neurosurgery Physician Name Role Phone Nisa Goodrich PA-C Primary Care Provider +1 [phone] Encounter Details Date Type Department Care Team (Late st Contact Info) Description 05/25/2024 11:30 AM EDT Scheduled Telephone Care Coordination and Integration [address] [place], [place] [phone] Aleah Rock, Community Health Type Bar And Segment Assembler [address] [place] [address] Allergies No known active allergiesdocumented as of [...] Tablets by mouth in the morning. Active Sun Number Ultra 2 w/Device Kit Use as directed. Use to test blood sugar E11.9 1 Kit 05/17/2024 Active Sun Number Ultra In Vitro Strip (Glucose Blood) Use 1 test strip once daily E11.9 100 Strip 5 05/17/2024 Active ioSafeuch Delica Lancets 33G Use to test blood [...] mRNA, LNP-s, No Pre serve, 2-Dose Series ([email or web address]) 07/30/2021,11/30/2020,11/09/2020 COVID-19, MRNA-LNP, 23-24, P F, 30 [...] yrs 05/15/2016,12/13/2015,11/07 Pneumococcal Conjugate Vacci ne, 20-valent ([email or web address]) 05/10/2024 Pneumococcal Polysaccharide PPV23 (Pneumovax) 07/30/2021,09/12/2011 Season [...] Description 05/31/2024 10:00 AM EDT Laboratory Laboratory, [facility] 132 [facility] [place] [address] [facility] [place] [address] 06/01/2024 9:30 AM EDT Scheduled Telephone Care Coordination and Integration [address] [place] [address] Aleah Rock, Community Health Type Bar And Segment Assembler [address] [place] [address] 06/01/2024 10:00 AM EDT Office Visit Cardiology, [facility] 132 [facility] [place] [address] William Snider DO 132 [facility] [place] [address] 06/08/2024 9:30 AM EDT Scheduled Telephone Care Coordination and Integration [address] [place] [address] Aleah Rock, Community Health Type Bar And Segment Assembler [address] [place] [address] 06/09/2024 2:00 PM EDT Office Visit Gastroenterology, [facility] 132 [facility] [place] [address] Kary Perez CRNP 132 [facility] [place] [address] 07/21/2024 11:40 AM EST Office Visit [facility] [address] [place] [phone] Nisa Goodrich PA-C [address] [place] [address] 08/16/2024 8:00 AM EST Office Visit Pharmacy, [facility] 132 [place] [address] [facility] [address] [place] [address] 09/06/2024 11:00 AM EST Office Visit [facility] [address] [facility] [place] [phone] Nisa Goodrich PA-C [address] [facility] [place] [address] 09/07/2024 10:22 AM EST Hospital Encounter OR [facility], Operating Room, [facility] - 4th Floor [address] [place] [phone] Marciano Lopez MD [address] [place] [address] 09/07/2024 10:22 AM EST - 09/07/2024 10:58 AM EST Surgery OR [facility], Operating Room, [facility] - 4th Floor [address] [place] [phone] Marcaino Lopez MD [address] [facility] [place] [address] COLONOSCOPY FLEXIBLE PROXIMAL DIAGNOSTIC 09/08/2024 7:40 AM EST Office Visit [facility] [address] [facility] [phone] Alonso Daigle MD [address] [facility] [address] 09/14/2024 8:45 AM EST Office Visit Orthopaedics Spine Surgery, [address] [address] [place] [address] Kleber Batres MD [address] [place] [address] Scheduled Procedures Name Priority Associated Diagnoses Date/Ti [...] and were consensually agreed upon. Care Teams Neurosurgery Physician Relationship Specialty Start Date End Date Nisa Goodrich PA-C [address] [facility] [place] [address] PCP - General Physician Type Bar And Segment Assembler 03/14/24 documented as of this encounter
--- OUTSIDE RECORDS SUMMARY | 2024-06-04 05:52 | External Medical Summary ---
Author Name Unknown Address Unknown Organization [facility] [place] 57[address] - [address] [place] [address] Laboratory Report Ordering Provider Test Date Status CHENG PIKE 05/20/2024 13:37:54 Final Observation Date Value Abnormality Reference (Units ) Status WBC, Total 05/20/2024 13:37:54 6.88 4.00-10.8 0 (K/uL) Final RBC 05/20/2024 13:37:54 4.27 4.50-5.25 (M/uL) Final Hemoglobin 05/20/2024 13:37:54 12.1 Below low normal 14 .0-16.8 (g/dL) Final HCT 05/20/2024 13:37:54 36.8 Below low normal 40. 0-48.4 (%) Final MCV 05/20/2024 13:37:54 86.2 82.0-99.5 (fL) Final MCH 05/20/2024 13:37:54 28.3 27.0-34.0 (pg) Final MCHC 05/20/2024 13:37:54 32.9 32.0-36.0 (g/dL) Final RDW 05/20/2024 13:37:54 15.1 11.5-15.5 (%) Final Platelets 05/20/2024 13:37:54 248 140-400 (K /uL) Final MPV 05/20/2024 13:37:54 8.5 6.6-11.1 ( fL) Final Performing Location [facility] [place] 57[address]1 0 - [address] [place] [address]
--- OUTSIDE RECORDS SUMMARY | 2024-06-04 05:52 | External Medical Summary | Summary of Care ---
Author Name Unknown Organization [facility] Address [address] [facility] [place] [address] Phone [phone] Care Team Providers Care Quantitative Researcher Name Role Phone Nisa Goodrich PA-C Primary Care Provider +1 [phone] Reason for Visit * Reason Comments Outpatient Testing Encounter Details Date Type Department Care Team (Late st Contact Info) Description 05/20/2024 1:40 PM EDT Laboratory [facility], [facility] [address] [facility] [address] Type 2 diabetes mellitus with hemoglobin A1c goal of less than 7.0% ([facility]); BRBPR (bright red blood per rectum); Infectious colitis Allergies No known active allergiesdocumented as of this encounter (statuses as of 05/20/2024) Medications Medication Sig Dispensed Refills Start Date [...] Tablets by mouth in the morning. Active [employer] Ultra 2 w/Device Kit Use as directed. Use to test blood sugar E11.9 1 Kit 05/17/2024 Active [employer] Ultra In Vitro Strip (Glucose Blood) Use 1 test strip once daily E11.9 100 Strip 5 05/17/2024 Active [employer] Delica Lancets 33G Use to test blood sugar once daily E11.9 100 Each 5 05/17/2024 Active Esomeprazole Magnesium 20 MG Oral Capsule Delayed Release (NexIUM) Take 1 Capsule by mouth daily before breakfast. 90 Capsule 3 05/20/2024 Active Hospital, Clinic, or Other Facility Administered Medication Ordered Dose Route Frequency Start Date End Date Status sodium chloride 0.9 % flush/inj 10 mL 10 mL IV PUSH ONCE 05/20/2024 05/21/2024 Active documented as of this encounter (statuses as of 05/20/2024) Active Problems Problem Noted Date Diagnosed Date [...] as of this encounter (statuses as of 05/20/2024) Resolved Problems Problem Noted Date Diagnosed Date [...] as of this encounter (statuses as of 05/20/2024) Immunizations Name Administration Dates Next Due COVID-19 mRNA, LNP-s, No Pre serve, 2-Dose Series ([employer]) 07/30/2021,11/30/2020,11/09/2020 COVID-19, MRNA-LNP, 23-24, P F, 30 MCG/0.3 mL, 12 YRS AND ABOVE, IM (PFIZER-ComirnatMeal Ticket) 06/30/2023 COVID-19, MRNA-LNP, 24-25, P R, 30MCG/0.3ML, IM, 12YRS AND ABOVE (Pfizer-Comirnaty) 06/30/2023 Covid-19, Mrna, Lnp-s, Pf, B ivalent, 30 Mcg, IM, 12 yrs and above (Pfizer) 06/20/2022 HEP A - Hepatitis A (Adult > 18 yrs) 02/16/2010, 09/15/2009 Hepatitis B, 20+ yrs 05/15/2016,12/13/2015,11/07 Pneumococcal Conjugate Vacci ne, 20-valent ([id number]) 05/10/2024 Pneumococcal Polysaccharide PPV23 (Pneumovax) 07/30/2021,09/12/2011 Season [...] Telephone Care Coordination and Integration [address] [place] [facility] [place] [address] Aleah Rock, Community Health Delivery Assistant [address] [place] [address] 05/31/2024 10:00 AM EDT Laboratory Laboratory, [facility] 132 [place] [address] [facility] 132 [place] [address] 06/01/2024 9:30 AM EDT Scheduled Telephone Care Coordination and Integration [address] [place] [place] [address] Aleah Rock, Community Health Delivery Assistant [facility] [place] [place] [address] 06/01/2024 10:00 AM EDT Office Visit Cardiology, [facility] 132 [facility] [place] [address] William Snider DO 132 [facility] [address] 06/08/2024 9:30 AM EDT Scheduled Telephone Care Coordination and Integration [address] [place] [facility] [place] [address] Aleah Rock, Community Health Delivery Assistant [facility] [place] [address] 06/09/2024 2:00 PM EDT Office Visit Gastroenterology, [facility] [address] [place] [address] Kary Perez CRNP [address] [place] [address] 07/21/2024 11:40 AM EST Office Visit [facility] [place] [address] [facility], [place] [phone] Nisa Goodrich PA-C [address] [address] 08/16/2024 8:00 AM EST Office Visit Pharmacy, [facility] [address] [place] [address] [facility] [address] [place] [address] 09/06/2024 11:00 AM EST Office Visit [facility] [place] [address] [facility], [place] [address] Nisa Goodrich PA-C [address], [place] [address] 09/07/2024 10:22 AM EST Hospital Encounter OR GL, Operating Room, [facility] - 4th Floor [facility] [place] [address] Marcaino Lopez MD [address] [place] [address] 09/07/2024 10:22 AM EST - 09/07/2024 10:58 AM EST Surgery OR [facility], Operating Room, [facility] - 4th Floor [address] [facility] [place] [address] Marciano Lopez MD [address] [place] [address] COLONOSCOPY FLEXIBLE PROXIMAL DIAGNOSTIC 09/08/2024 7:40 AM EST Office Visit [facility] [address] [place] [address] Alonso Daigle MD [address] [place] [address] 09/14/2024 8:45 AM EST Office Visit Orthopaedics Spine Surgery, [address] [place] [address] Kleber Batres MD [address] [place] [address] Pending Results Name Type Priority Associated Diagnoses Date /Time HEMOGLOBIN A1C Lab Routine Type 2 diabetes mellitus with hemoglobin A1c goal of less than 7.0% ([facility]) 05/20/2024 1:37 PM EDT Scheduled Procedures Name Priority Associated [...] 09/0 05/2022, 02/09/2021, Additional history exists GFR 05/12/2025 05/12/2024, 09/0 [...] Priority Date/Time Associated Diagnosis Comments DIFFERENTIAL, AUTOMATED STAT 05/20/2024 1:37 PM EDT BRBPR (bright red blood per rectum) Infectious colitis CBC STAT 05/20/2024 1:37 PM EDT BRBPR (bright red blood per rectum) Infectious colitis CBC STAT 05/20/2024 1:37 PM EDT BRBPR (bright red blood per rectum) Infectious colitis documented in this encounter Results * (ABNORMAL) DIFFERENTIAL, AUTOMATED (05/20/2024 1:37 PM EDT) WBC 6.88 4.00 - 10.80 K/uL 05/20/2024 1:54 PM EDT [facility] [place] 57[facility]10 Neutrophils % 59.7 40.0 - 75.0 % 05/20/2024 1:54 PM EDT [facility] [place] 57-10 Lymphocytes % 22.7 18.0 - 42.0 % 05/20/2024 1:54 PM EDT [facility] [place] 57-10 Monocytes % 12.8(H) 1.0 - 11.0 % 05/20/2024 1:54 PM EDT [facility] [place] 57-10 Eosinophils % 3.9 0.0 - 6.0 % 05/20/2024 1:54 PM EDT [facility] [place] 57-10 Basophils % 0.9 0.0 - 2.0 % 05/20/2024 1:54 PM EDT [facility] [place] 57-10 Absolute Neutrophils 4.11 1.80 - 7.70 K/uL 05/20/2024 1:54 PM EDT [facility] [place] 57-10 Absolute Lymphocytes 1.56 1.00 - 4.80 K/ul 05/20/2024 1:54 PM EDT [facility] [place] 57-10 Absolute Monocytes 0.88 0.00 - 1.10 K/uL 05/20/2024 1:54 PM EDT [facility] [place] 57-10 Absolute Eosinophils 0.27 0.00 - 0.70 K/uL 05/20/2024 1:54 PM EDT [facility] [place] 57-10 Absolute Basophils 0.06 0.00 - 0.20 K/uL 05/20/2024 1:54 PM EDT [facility] [place] 57-10 Blood Venous blood specimen / Unknown Venipuncture / Unknown 05/20/2024 1:37 PM EDT 05/20/2024 1:37 PM EDT Kary CHAUHAN LAB BLOOD ORDER [facility] [place] [address] [place] [address] * (ABNORMAL) CBC (05/20/2024 1:37 PM EDT) WBC 6.88 4.00 - 10.80 K/uL 05/20/2024 1:54 PM EDT [facility] [place] 57-10 RBC 4.27 4.50 - 5.25 M/uL 05/20/2024 1:54 PM EDT [facility] [place] 57-10 HGB 12.1(L) 14.0 - 16.8 g/dL 05/20/2024 1:54 PM EDT [facility] [place] 57-10 HCT 36.8(L) 40.0 - 48.4 % 05/20/2024 1:54 PM EDT [facility] [place] 57-10 MCV 86.2 82.0 - 99.5 fL 05/20/2024 1:54 PM EDT [facility] [place] 57-10 MCH 28.3 27.0 - 34.0 pg 05/20/2024 1:54 PM EDT [facility] [place] 57-10 MCHC 32.9 32.0 - 36.0 g/dL 05/20/2024 1:54 PM EDT [facility] [place] 57-10 RDW 15.1 11.5 - 15.5 % 05/20/2024 1:54 PM EDT [facility] [place] 57-10 PLT 248 140 - 400 K/uL 05/20/2024 1:54 PM EDT [facility] [place] 57-10 MPV 8.5 6.6 - 11.1 fL 05/20/2024 1:54 PM EDT [facility] [place] 57-10 Blood Venous blood specimen / Unknown Venipuncture / Unknown 05/20/2024 1:37 PM EDT 05/20/2024 1:37 PM EDT Kary Chaves Ana NEVESNP LAB BLOOD ORDER [facility] [place] 57-10 [address] [place] [address] documented in this encounter Visit Diagnoses Diagnosis Type 2 diabetes mellitus with hemoglobin A1c goal of less than 7.0% (HCC) BRBPR (bright red blood per rectum) Hemorrhage of rectum and anus Infectious colitis Infectious colitis, enteritis, and gastroenteritis Blood in stool documented in this encounter Advance Directives * Full Code (Latest Code Status on File) Date Activated Date Inactivated Comments 07/05/2019 10:32 AM 07/05/2019 4:23 PM This order reflects the patients wishes and were consensually agreed upon. Care Teams Quantitative Researcher Relationship Specialty Start Date End Date Nisa Goodrich PA-C [address] [place] [address] PCP - General Physician Delivery Assistant 03/14/24 documented as of this encounter
--- OUTSIDE RECORDS SUMMARY | 2024-06-04 05:52 | External Medical Summary | Summary of Care ---
Author Name Unknown Organization [facility] Address [address] [place] [address] Phone [phone] Care Team Providers Care Senior Android Software Engineer Name Role Phone Nisa Goodrich PA-C Primary Care Provider [phone] Encounter Details Date Type Department Care Team (Late st Contact Info) Description 05/25/2024 11:30 AM EDT Scheduled Telephone Care Coordination and Integration [address] [place], [place] [phone] Aleah Rock, Community Health General Farmer [address] [place] [address] Allergies No known active allergiesdocumented as of [...] Tablets by mouth in the morning. Active [employer] Ultra 2 w/Device Kit Use as directed. Use to test blood sugar E11.9 1 Kit 05/17/2024 Active [employer] Ultra In Vitro Strip (Glucose Blood) Use 1 test strip once daily E11.9 100 Strip 5 05/17/2024 Active [employer] Delica Lancets 33G Use to test blood [...] mRNA, LNP-s, No Pre serve, 2-Dose Series ([employer]) 07/30/2021,11/30/2020,11/09/2020 COVID-19, MRNA-LNP, 23-24, P F, 30 [...] yrs 05/15/2016,12/13/2015,11/07 Pneumococcal Conjugate Vacci ne, 20-valent ([id number]) 05/10/2024 Pneumococcal Polysaccharide PPV23 (Pneumovax) 07/30/2021,09/12/2011 Season [...] Progress Notes * Aleah Rock, Community Health General Farmer - 05/25/2024 1:04 PM EDT Telemedicine visit: No Community Health General Farmer (ANGIE) documentation: CHW outbound call Spoke to [...] HGB was at 12.1 Has follow up mobile marketing specialist next week Gastro on June 09 Concern that he is not feeling better Aleah Rock [facility] Community Health Worker Call or Text- [phone] documented in this encounter Plan of Treatment Upcoming Encounters Date Type Department Care Team (Late st Contact Info) Description 05/31/2024 10:00 AM EDT Laboratory Laboratory, [address] [place] [phone] Ellie Hurtados [facility] [place] [address] 06/01/2024 9:30 AM EDT Scheduled Telephone Care Coordination and Integration [address] [place] [facility] [place] [address] Aleah Rock, Community Health General Farmer [address] [facility] [place] [address] 06/01/2024 10:00 AM EDT Office Visit Cardiology, [facility] 132 [facility] [place] [address] William Snider DO [address] [place] [address] 06/08/2024 9:30 AM EDT Scheduled Telephone Care Coordination and Integration [address] [place] [address] Aleah Rock, Community Health General Farmer [address] [place] [address] 06/09/2024 2:00 PM EDT Office Visit Gastroenterology, [facility] [address] [place] [address] Kary Perez CRNP [address] [place] [address] 07/21/2024 11:40 AM EST Office Visit [place] [address] [facility] [phone] Nisa Goodrich PA-C [address] [place] [address] 08/16/2024 8:00 AM EST Office Visit Pharmacy, [facility] [place] [address] [facility] [address] [place] [address] 09/06/2024 11:00 AM EST Office Visit [place] [address] [facility] [place] [address] Nisa Goodrich PA-C [address] [facility] [place] [address] 09/07/2024 10:22 AM EST Hospital Encounter OR [facility], Operating Room, [facility] - 4th Floor [address] [place] [address] Marciano Lopez MD [address] [place] [address] 09/07/2024 10:22 AM EST - 09/07/2024 10:58 AM EST Surgery OR [facility], Operating Room, [facility] - 4th Floor [address] [place] [address] Marciano Lopez MD [address] [place] [address] COLONOSCOPY FLEXIBLE PROXIMAL DIAGNOSTIC 09/08/2024 7:40 AM EST Office Visit [facility] [address] [place] [address] Alonso Daigle MD [address] [place] [address] 09/14/2024 8:45 AM EST Office Visit Orthopaedics Spine Surgery, [place] [address] [place] [address] Kleber Batres MD [address] [place] [address] Scheduled Procedures Name Priority Associated Diagnoses Date/Ti [...] were consensually agreed upon. Care Teams Senior Android Software Engineer Relationship Specialty Start Date End Date Nisa Goodrich PA-C [address] [facility] [place] [address] PCP - General Physician General Farmer 03/14/24 documented as of this encounter
--- OUTSIDE RECORDS SUMMARY | 2024-06-04 05:52 | External Medical Summary ---
Author Name Unknown Address Unknown Organization K01:[facility]ATORY [facility] - [address] [facility] [address] [facility] [address] Laboratory Report Ordering Provider Test Date Status DELMIS MILLER 05/20/2024 13:37:54 Final Observation Date Value Abnormality Reference (Units ) Status HbA1C 05/20/2024 13:37:54 5.9 Above high normal 4. 0-5.6 (%) Final The use of HbA1c to monitor glycemic status is based on normal hemoglobin and HbA composition. This test should not be used in patients with abnormal hemoglobin that affects the half life of the red blood cell or the in vivo glycation rates. Glucose, estimated average 05/20/2024 13:37:54 123 <126 (mg/dL) Final Performing Location [facility]ORY [facility] - [address] [facility] [address]
--- OUTSIDE RECORDS SUMMARY | 2024-06-04 05:53 | External Medical Summary ---
Author Name Unknown Address Unknown Organization [id number]:[facility] [place] [address] [place] [address] Laboratory Report Ordering Provider Test Date Status CHENG PIKE 05/13/2024 12:15:50 Final Observation Date Value Abnormality Reference (Units) Status Source 05/13/2024 12:15:50 Semi-liquid Final Clostridioides difficile toxin and [id number] strain DNA panel - Stool by TRAVIS with probe detection 05/13/2024 12:15:50 Negative. No C. difficile toxin B gene DNA detected by PCR (Amplified Probe). Negative Final Performing Location [facility] [place] [address] [place] [address]
--- OUTSIDE RECORDS SUMMARY | 2024-06-04 05:53 | External Medical Summary | Summary of Care ---
Author Name Unknown Organization [facility] Address [address] [place] [address] Phone [phone] Care Team Providers Care Wax Machine Operator Name Role Phone Nisa Goodrich PA-C Primary Care Provider [phone] Encounter Details Date Type Department Care Team (Late st Contact Info) Description 05/19/2024 3:20 PM EDT Scheduled Telephone Care Coordination and Integration [address] [place] [address] Aleah Rock, Community Health Citrus Fruit Colorer [address] [place] [address] Allergies No known active allergiesdocumented as of [...] Tablets by mouth in the morning. Active [employer] Ultra 2 w/Device Kit Use as directed. Use to test blood sugar E11.9 1 Kit 05/17/2024 Active [employer] Ultra In Vitro Strip (Glucose Blood) Use 1 test strip once daily E11.9 100 Strip 5 05/17/2024 Active [employer] Delica Lancets 33G Use to test blood [...] yrs 05/15/2016,12/13/2015,11/07 Pneumococcal Conjugate Vacci ne, 20-valent ([id number]) 05/10/2024 Pneumococcal Polysaccharide PPV23 (Pneumovax) 07/30/2021,09/12/2011 Season [...] Progress Notes * Aleah Rock, Community Health Citrus Fruit Colorer - 05/19/2024 3:57 PM EDT Telemedicine visit: No Community Health Citrus Fruit Colorer (ANGIE) documentation: CH[facility] outbound appointment 2x lightheaded today Today bowels moved when wiping Dark black spots that were clots, dark red blood, bowels only moved once today May and had BM and no Blood May 14 and 15 Dark Red Blood Has nausea Denies vomiting [...] care if he is eligible Aleah Rock [facility] Community Health Worker Call or Text- [phone] documented in this encounter Plan of Treatment Upcoming Encounters Date Type Department Care Team (Late st Contact Info) Description 05/20/2024 11:45 AM EDT Imaging Radiology [facility] [address] [place] [address] 05/25/2024 11:30 AM EDT Scheduled Telephone Care Coordination and Integration [address] [place] [address] Aleah Rock, Community Health Citrus Fruit Colorer [address] [place] [address] 05/31/2024 10:00 AM EDT Laboratory Laboratory, [address] [place] [phone] Ellie Hurtado [facility] 132 [facility] [place] [address] 06/01/2024 9:30 AM EDT Scheduled Telephone Care Coordination and Integration [address] [place] [address] Aleah Rock, Community Health Citrus Fruit Colorer [address] [place] [address] 06/01/2024 10:00 AM EDT Office Visit Cardiology, [facility] 132 [facility] [place] [address] William Snider DO [address] [place] [address] 06/08/2024 9:30 AM EDT Scheduled Telephone Care Coordination and Integration [address] [place] [address] Aleah Rock, Community Health Citrus Fruit Colorer [address] [place] [address] 06/09/2024 2:00 PM EDT Office Visit Gastroenterology, [facility] 132 [facility] [place] [address] Kary Perez CRNP [address] [place] [address] 07/21/2024 11:40 AM EST Office Visit [facility] [address] [place] [phone] Nisa Goodrich PA-C [address] [place] [address] 08/16/2024 8:00 AM EST Office Visit Pharmacy, [facility] 132 [facility] [place] [address] [facility] 132 [facility] [place] [address] 09/06/2024 11:00 AM EST Office Visit [facility] [address] [facility], [place] [phone] Nisa Goodrich PA-C [address] [facility], [place] [address] 09/07/2024 10:22 AM EST Hospital Encounter OR [facility], Operating Room, [facility] - 4th Floor [address] [facility] [place] [address] Marciano Lopez MD [address] [place] [address] 09/07/2024 10:22 AM EST - 09/07/2024 10:58 AM EST Surgery OR [facility], Operating Room, [facility] - 4th Floor 400 [facility] [place] [address] Marciano Lopez MD [address] [place] [address] COLONOSCOPY FLEXIBLE PROXIMAL DIAGNOSTIC 09/08/2024 7:40 AM EST Office Visit [facility] [address] [facility], [place] [phone] Alonso Daigle MD [address] [facility] [address] 09/14/2024 8:45 AM EST Office Visit Orthopaedics Spine Surgery, [address] [place] [address] Kleber Batres MD [address] [place] [address] Scheduled Procedures Name Priority Associated Diagnoses Date/Ti [...] and were consensually agreed upon. Care Teams Wax Machine Operator Relationship Specialty Start Date End Date Nisa Goodrich PA-C [address] [facility] [place] [address] PCP - General Physician Citrus Fruit Colorer 03/14/24 documented as of this encounter
--- OUTSIDE RECORDS SUMMARY | 2024-06-04 05:53 | External Medical Summary | Summary of Care ---
Author Name Unknown Organization [facility] Address [address] [facility] [address] Phone [phone] Care Team Providers Care Program Advocate Name Role Phone Nisa Goodrich PA-C Primary Care Provider [phone] Reason for Visit * Reason Comments Outpatient Testing Encounter Details Date Type Department Care Team (Late st Contact Info) Description 05/13/2024 12:20 PM EDT Laboratory Laboratory, [facility] [address] [facility] [place] [place] [address] [place], Specimen Drop Off [facility] [address] [place] [address] BRBPR (bright red blood per rectum); Internal hemorrhoids; Infectious colitis; Diarrhea of presumed infectious origin; Gastroesophageal reflux disease without esophagitis Allergies No known active allergiesdocumented as of this encounter (statuses as of 05/13/2024) Medications Medication Sig Dispensed Refills Start Date [...] the morning. 45 Tablet 3 04/16/2024 Active Metoprolol Succinate ER [...] before bedtime. 60 Capsule 2 05/12/2024 Active documented as of this encounter (statuses as of 05/13/2024) Active Problems Problem Noted Date Diagnosed Date [...] as of this encounter (statuses as of 05/13/2024) Resolved Problems Problem Noted Date Diagnosed Date [...] as of this encounter (statuses as of 05/13/2024) Immunizations Name Administration Dates Next Due COVID-19 mRNA, LNP-s, No Pre serve, 2-Dose Series ([employer]) 07/30/2021,11/30/2020,11/09/2020 COVID-19, MRNA-LNP, 23-24, P F, 30 MCG/0.3 mL, 12 YRS AND ABOVE, IM ([employer]-Comirnat[employer]) 06/30/2023 Covid-19, Mrna, Lnp-s, Pf, B ivalent, 30 Mcg, IM, 12 yrs and above ([employer]) 06/20/2022 HEP A - Hepatitis A (Adult [...] 05/17/2024 8:00 AM EDT Office Visit Pharmacy, [address] [place] [address] [facility] [address] [place] [address] 05/20/2024 11:45 AM EDT Imaging Radiology [facility] 1st Floor, [address] [place] [address] 05/31/2024 10:00 AM EDT Laboratory Laboratory, [address] [place] [phone] [place]Ellie [address] [place] [address] 06/01/2024 10:00 AM EDT Office Visit Cardiology, [facility] [address] [place] [address] William Snider DO [address] [place] [address] 06/09/2024 2:00 PM EDT Office Visit Gastroenterology, [facility] [address] [place] [address] Kary Perez CRNP [address] [place] [address] 07/21/2024 11:40 AM EST Office Visit [facility] [address] [facility], [place] [address] Nisa Goodrich PA-C [address] [facility], [place] [address] 09/06/2024 11:00 AM EST Office Visit [facility] [address] [facility], [place] [phone] Nisa Goodrich PA-C [address] [facility] [address] 09/07/2024 10:22 AM EST Hospital Encounter OR [facility], Operating Room, [facility] - 4th Floor [address] [facility] [place] [phone] Marciano Lopez MD [address] [place] [address] 09/07/2024 10:22 AM EST - 09/07/2024 10:58 AM EST Surgery OR [facility], Operating Room, [facility] - 4th Floor [address] [facility] [place] [phone] Marciano Lopez MD [address] [place] [address] COLONOSCOPY FLEXIBLE PROXIMAL DIAGNOSTIC 09/08/2024 7:40 AM EST Office Visit [facility] [address] [facility], [place] [address] Alonso Daigle MD [address] [place] [address] 09/14/2024 8:45 AM EST Office Visit Orthopaedics Spine Surgery, [facility] [place] [address] [place] [address] Kleber Batres MD [address] [place] [address] Pending Results Name Type Priority Associated Diagnoses Date /Time CLOSTRIDIUM DIFFICILE, PCR Lab Routine BRBPR (bright red blood per rectum) Internal hemorrhoids Infectious colitis Diarrhea of presumed infectious origin Gastroesophageal reflux disease without esophagitis 05/13/2024 12:15 PM EDT GASTROINTESTINAL PATHOGEN PANEL, STOOL Lab Routine BRBPR (bright red blood per rectum) Internal hemorrhoids Infectious colitis Diarrhea of presumed infectious origin Gastroesophageal reflux disease without esophagitis 05/13/2024 12:15 PM EDT GASTROINTESTINAL PATHOGEN PANEL PCR Lab Routine BRBPR (bright red blood per rectum) Internal hemorrhoids Infectious colitis Diarrhea of presumed infectious origin Gastroesophageal reflux disease without esophagitis 05/13/2024 12:15 PM EDT GASTROINTESTINAL PATHOGEN PANEL CULTURE Lab Routine BRBPR (bright red blood per rectum) Internal hemorrhoids Infectious colitis Diarrhea of presumed infectious origin Gastroesophageal reflux disease without esophagitis 05/13/2024 12:15 PM EDT Scheduled Procedures Name Priority Associated [...] Cologuard 2001 Fecal Occult Blood Test 2001 Depression Screening 05/05/2021 05/05/2020 Adult Wellness Visit 2022 HbA1c 08/17/2024 02/16/2024, 12/30, 10/08/2023, Additional history exists Diabetic Foot Exam 09/03/2024 09/03/2023, 0 02/09/2021, 10/05/2018, Additional history exists Diabetic Eye Exam 10/07/2024 10/07/2023, 09/08/2020 Albumin/Creatinine Ratio 10/08/2024 024, 05/10/2022, 09/24/2021, Additional history exists B-12 10/08/2024 10/08/2023, 09/0 05/2022, 02/09/2021, Additional history exists GFR 05/12/2025 05/12/2024, 09/0 10/2023, 04/15/2024, Additional history exists Colonoscopy 05/07/2028 05/07/2018, 09/0 01/2018, 01/13/2007 DTap/Tdap [...] as of this encounter Visit Diagnoses Diagnosis BRBPR (bright red blood per rectum) Hemorrhage of rectum and anus Internal hemorrhoids Internal hemorrhoids without mention of complication Infectious colitis Infectious colitis, enteritis, and gastroenteritis Diarrhea of presumed infectious origin Gastroesophageal reflux disease without esophagitis Esophageal reflux Blood in stool documented in this encounter Additional Health Concerns Infection Onset Date Last Indicated Resolved Time C. difficile Rule-Out 05/13/2024 05/13/2024 Gastrointestinal Rule-Out 05/13/2024 05/13/2024 documented as of this encounter Advance Directives * Full Code (Latest Code Status on File) Date Activated Date Inactivated Comments 07/05/2019 10:32 AM 07/05/2019 4:23 PM This order reflects the patients wishes and were consensually agreed upon. Care Teams Program Advocate Relationship Specialty Start Date End Date Nisa Goodrich PA-C [address] [facility] [place] [address] PCP - General Physician Product Coordinator 03/14/24 documented as of this encounter
--- OUTSIDE RECORDS SUMMARY | 2024-06-04 05:53 | External Medical Summary ---
Author Name Unknown Address Unknown Organization K01:[facility] [place] [address] [facility] [address] [facility] [address] Laboratory Report Ordering Provider Test Date Status CANDI PIKEISO 05/13/2024 12:15:58 Final Observation Date Value Abnormality Reference (Units ) Status Campylobacter sp DNA.diarrheagenic [Presence] in Stool by TRAVIS with probe detection 05/13/2024 12:15:58 Negative Negative Final Salmonella sp rpoD gene [Presence] in Stool by TRAVIS with probe detection 05/13/2024 12:15:58 Negative Negative Final Shigella species+EIEC invasion plasmid antigen H ipaH gene [Presence] in Stool by TRAVIS with probe detection 05/13/2024 12:15:58 Negative Negative Final Vibrio sp DNA [Identifier] in Specimen by TRAVIS with probe detection 05/13/2024 12:15:58 Negative Negative Final Yersinia enterocolitica recN gene [Presence] in Stool by TRAVIS with probe detection 05/13/2024 12:15:58 Negative Negative Final Escherichia coli Stx1 toxin stx1 gene [Presence] in Stool by TRAVIS with probe detection 05/13/2024 12:15:58 Negative Negative Final Escherichia coli Stx2 toxin stx2 gene [Presence] in Stool by TRAVIS with probe detection 05/13/2024 12:15:58 Negative Negative Final Norovirus genogroups I and II RNA panel - Stool by TRAVIS with probe detection 05/13/2024 12:15:58 Negative Negative Final Rotavirus A RNA [Presence] in Stool by TRAVIS with probe detection 05/13/2024 12:15:58 Negative Negative Final Performing Location [facility] [place] [address] [facility] [place] [facility] [address]
--- OUTSIDE RECORDS SUMMARY | 2024-06-04 05:53 | External Medical Summary | Summary of Care ---
Author Name Unknown Organization [facility] Address [address] [facility] [place] [address] Phone [phone] Care Team Providers Care Song Plugger Name Role Phone Nisa Goodrich PA-C Primary Care Provider [phone] Reason for Visit * Reason Onset Date Comments FYI 05/12/2024 Encounter Details Date Type Department Care Team (Late st Contact Info) Description 05/12/2024 Telephone Gastroenterology, [facility] [address] [place] [address] Kary Perez CRNP [address] [place] [address] FYI Allergies No known active allergiesdocumented as of this encounter (statuses as of 05/12/2024) Medications Medication Sig Dispensed Refills Start Date [...] as of this encounter (statuses as of 05/12/2024) Active Problems Problem Noted Date Diagnosed Date [...] as of this encounter (statuses as of 05/12/2024) Resolved Problems Problem Noted Date Diagnosed Date [...] as of this encounter (statuses as of 05/12/2024) Immunizations Name Administration Dates Next Due COVID-19 mRNA, LNP-s, No Pre serve, 2-Dose Series ([employer]) 07/30/2021,11/30/2020,11/09/2020 COVID-19, MRNA-LNP, 23-24, P F, 30 MCG/0.3 mL, 12 YRS AND ABOVE, IM ([employer]) 06/30/2023 Covid-19, Mrna, Lnp-s, Pf, B ivalent, 30 Mcg, IM, 12 yrs and above ([employer]) 06/20/2022 HEP A - Hepatitis A (Adult [...] Telephone Encounter - Kary Perez CRNP - 05/12/2024 3:39 PM EDT Just spoke to patient. GISSEL Anderson * Telephone Encounter - Sallie Lambert OSA - 05/12/2024 3:36 PM EDT Call from patient who states he just missed a call from [phone] documented in this encounter Plan of Treatment Upcoming Encounters Date Type Department Care Team (Late st Contact Info) Description 05/17/2024 8:00 AM EDT Office Visit Pharmacy, [facility] [address] [address] [facility] [place] [address] [place] [address] 05/20/2024 11:45 AM EDT Imaging Radiology [facility] [address] [facility] [place] [address] 05/31/2024 10:00 AM EDT Laboratory Laboratory, [address] [place] [phone] [facility] [address] [place] [address] 06/01/2024 10:00 AM EDT Office Visit Cardiology, [facility] [address] [place] [address] William Snider DO [address] [place] [address] 06/09/2024 2:00 PM EDT Office Visit Gastroenterology, [facility] [address] [place] [address] Kary Perez CRNP [address] [place] [address] 07/21/2024 11:40 AM EST [facility] [place] [address] [address] [facility] [phone] Nisa Goodrich PA-C [address] [facility] [address] 09/06/2024 11:00 AM EST Office Visit [place] [address] [address] [facility] [phone] Nisa Goodrich PA-C [address] [facility] [address] 09/07/2024 10:22 AM EST Hospital Encounter OR [facility], Operating Room, [facility] - 4th Floor [address] [place] [address] [place] [phone] Marciano Lopez MD [address] [place] [address] 09/07/2024 10:22 AM EST - 09/07/2024 10:58 AM EST Surgery OR [facility], Operating Room, [facility] - 4th Floor [address] [place] [phone] Marciano Lopez MD [address] [place] [address] COLONOSCOPY FLEXIBLE PROXIMAL DIAGNOSTIC 09/08/2024 7:40 AM EST Office Visit [facility] [address] [place] [phone] Alonso Daigle MD [address] [place] [address] 09/14/2024 8:45 AM EST Office Visit Orthopaedics Spine Surgery, [place] [place] [address] [place] [address] Kleber Batres MD [address] [place] [address] Scheduled Procedures Name Priority Associated Diagnoses Date/Ti [...] 09/03/2023, 0 02/09/2021, 10/05/2018, Additional history exists COVID-19 Vaccine ( season) 2024 05/10/2024, 06/30/2023, 06/30/2023, Additional history exists Diabetic Eye Exam 10/07/2024 [...] Completed 10/2023, 06/30/2023, 05/10/2022, Additional history exists Pneumococcal Vaccine: 65+ Years [...] and were consensually agreed upon. Care Teams Song Plugger Relationship Specialty Start Date End Date Nisa Goodrich PA-C [address] [facility] [place] [address] PCP - General Physician Club Lounge Attendant 03/14/24 documented as of this encounter
--- OUTSIDE RECORDS SUMMARY | 2024-06-04 05:53 | External Medical Summary | Summary of Care ---
Author Name Unknown Organization [facility] Address [address] [facility] [place] [address] Phone [phone] Care Team Providers Care Ceramics Artist Name Role Phone Nisa Goodrich PA-C Primary Care Provider [phone] Reason for Visit * Reason Comments Dosage Adjustment In Person (Anticoag Cl inic) Diabetes Follow-Up Encounter Details Date Type Department Care Team (Late st Contact Info) Description 05/17/2024 8:00 AM EDT Office Visit Pharm[facility], [facility] [address] [facility] [place] [address] [facility] [id number] Type 2 diabetes mellitus with hemoglobin A1c goal of less than 7.0% ([facility])* Allergies No known active allergiesdocumented as of this encounter (statuses as of 05/17/2024) Medications Medication Sig Dispensed Refills Start Date [...] Tablets by mouth in the morning. Active [employer] Ultra 2 w/Device Kit Use as directed. Use to test blood sugar E11.9 1 Kit 05/17/2024 Active [employer] Ultra In Vitro Strip (Glucose Blood) Use 1 test strip once daily E11.9 100 Strip 5 05/17/2024 Active Zorapuch Delica Lancets 33G Use to test blood sugar once daily E11.9 100 Each 5 05/17/2024 Active documented as of this encounter (statuses as of 05/17/2024) Active Problems Problem Noted Date Diagnosed Date [...] as of this encounter (statuses as of 05/17/2024) Resolved Problems Problem Noted Date Diagnosed Date [...] as of this encounter (statuses as of 05/17/2024) Immunizations Name Administration Dates Next Due COVID-19 mRNA, LNP-s, No Pre serve, 2-Dose Series (Impulsonic) 07/30/2021,11/30/2020,11/09/2020 COVID-19, MRNA-LNP, 23-24, P F, 30 MCG/0.3 mL, 12 YRS AND ABOVE, IM ([employer]) 06/30/2023 COVID-19, MRNA-LNP, 24-25, P R, 30MCG/0.3ML, IM, 12YRS AND ABOVE (Pfizer-Comirnat) 06/30/2023 Covid-19, Mrna, Lnp-s, Pf, B ivalent, 30 Mcg, IM, 12 yrs and above (Pfizer) 06/20/2022 HEP A - Hepatitis A (Adult > 18 yrs) 02/16/2010, 09/15/2009 Hepatitis B, 20+ yrs 05/15/2016,12/13/2015,11/07 Pneumococcal Conjugate Vacci ne, 20-valent ([id number]) 05/10/2024 Pneumococcal Polysaccharide PPV23 (Pneumovax) 07/30/2021,09/12/2011 Season [...] the money to buy more. Never true 05/13/20 24 Within the past 12 months, t he food you bought just didn't last and you didn't have money to get more. Never true 05/13/2024 Childcare Answer Date Recorded Do you feel overwhelmed with taking care of a child, family member or friend? No 05/13/2024 Does your family need help f inding childcare? (Household - for ages 0-17 years) Not on file 05/13/2024 Clothing Answer Date Recorded Have you been unable to get clothing when it was really needed? No 05/13/2024 Is your family able to get c lothes or diapers when needed? (Household - for ages 0-17 years) Not on file 05/13/2024 Personal Safety Answer Date Recorded Do you feel unsafe or have concerns for your saf ety? No 05/13/2024 Do you have concerns for you r family's safety? (Household - for ages 0-17 years) Not on file 05/13/2024 Utilities Answer Date Recorded Do you have trouble paying y our heating, water, or electric bill? No 05/13/2024 Is your family able to pay t he heat, water, or electric bill? (Household - for ages 0-17 years) Not on file 05/13/2024 Does your family have access to good internet? (Household - for ages 0-17 years) Not on file 05/13/2024 Employment Status Answer Date Recorded Are you unemployed or without regular income? No 05/13/2024 Does the household have a re gular source of income? (Household - for ages 0-17 years) Not on file 05/13/2024 Social Connections Answer Date Recorded How often do you feel lonely or isolated from th ose around you? Never 05/13/2024 Financial Resource Strain Answer Date R ecorded Do you have any trouble payi ng for your medications, or do you think you might in the future? No 05/13/2024 Does your family have troubl e paying for medicine? (Household - for ages 0-17 years) Not on file 05/13/2024 Transportation Needs Answer Date Record ed Do you have trouble getting a ride to medical visits or work? (Adult - for ages 18 years and over) Not on file 05/13/2024 Does your family have a hard time getting a ride to doctors visits? (Household - for ages 0-17 years) Not on file 05/13/2024 Has lack of transportation k ept you from medical appointments, meetings, work, or from getting things needed for daily living? Check all that apply. No 05/13/2024 Do you (or your family) have trouble finding or paying for a ride (transportation)? (Household - for ages 0-17 years) Not on file 05/13/2024 Housing Stability Answer Date Recorded Do you currently live in a s helter or have no steady place to sleep at night? No 05/13/2024 Do you think you are at risk of becoming homeless? (Adult - for ages 18 years and over) Not on file 05/13/2024 Does your family worry about paying for your home or becoming homeless? (Household - for ages 0-17 years) Not on file 0 05/13/2024 Are you homeless or worried that you might be in the future? No 05/13/2024 Are you (or your family) tyree eless or worried that you might be in the future? (Household - for ages 0-17 years) Not on file Food Insecurity Answer Date Recorded Do you need food for this week? No 05/13/2024 Are you able to get enough f ood for your family? (Household - for ages 0-17 years) Not on file 05/13/2024 Does your family need food t his week? (Household - for ages 0-17 years) Not on file 05/13/2024 Do you always have enough fo od for your family? (Household - for ages 0-17 years) Not on file 05/13/2024 Sex and Gender Information Value Date Recorded Sex Assigned at Male 04/12/2019 8:16 AM EDT Gender Identity Male 04/12/2019 8:16 AM EDT Sexual Orientation Straight 04/12/2019 8: 16 AM EDT Job Start Date Occupation Industry Not on file Not on file Not on file documented as of this encounter Progress Notes * GriffinSally bennett Andie, [facility] - 05/17/2024 7:57 AM EDT Medication Therapy Disease Management Clinic - Diabetes Management Progress Note Almas Pack, identified by name and date of , is a 68 year old male being seen for diabetes management/education. Patient presents for return diabetic visit. DIABETES: Current diabetic medications: Metformin 1000 mg BID Rybelsus 7 mg Medication Injection Site: N/A Lifestyle: Diet: unchanged Glucose Review/SMBG: Readings per patient memory/recall: Patient is currently testing 0 times a day Hypoglycemia: Does your blood sugar go below 70 mg/dL? No Hyperglycemia symptoms present: none Recent Labs Units 02/16/24 0846 01/16/24 0753 10/08/23 0911 HEMOGLOBIN A1C - [facility] % 7.5* 8.3* 7.8* Recent Labs Units 05/12/24 1350 05/04/24 1051 04/15/24 1416 ESTIMATED GLOMERULAR FILTRATION RATE - [facility] mL/min 79 75 68 CREATININE - [facility] mg/dL 1.0 1.1 1.2 HYPERTENSION: Patient on ACEi/ARB: yes BP Readings from Last 3 Encounters: 05/12/24 130/74 04/30/24 133/67 04/29/24 126/74 Blood pressure at goal: yes HYPERLIPIDEMIA: Recent Labs Units 03/08/24 1242 10/08/23 0911 LDL CHOLESTEROL (DIRECT MEASURE) - [facility] mg/dL 72 89 Does patient have clinical ASCVD? Yes, is patient LDL less than 55 mg/dL? No: following with cardiology HEALTH MAINTENANCE REVIEW: Health Maintenance Due Topic Date Due Hepatitis C Screening Never done Adult Wellness Visit Never done ASSESSMENT & PLAN: BG Readings - Blood sugars controlled. A1c of 6.5% last month in hospital. Medications - Reviewed current regimen, patient is adherent to regimen. Will continue with current medications. Diet, Exercise, Lifestyle - No significant lifestyle changes since last visit. Discussed with patient. Patient is agreeable to SMBG 0-1 time(s) daily. Patient aware to contact clinic if any hypoglycemia before next visit. MEDICATION CHANGES: no change Diabetic Medications: Metformin 1000 mg BID Rybelsus 7 mg HEALTH MAINTENANCE INTERVENTIONS: Labs: Up to Date Immunizations: Up to Date Foot Exam: Up to Date Eye Exam: Up to Date Annual Wellness Visit: N/A FOLLOW UP: Return to clinic in 12 weeks Visit date not found I spent a total of 30-39 minutes (exact time 31 mins) on the date of service in preparation, delivery, and documentation of the care provided to Almas Pack excluding any time spent in the performance of separately billed services. Sally Moya [facility] Clinical Pharmacist - Advertising Solicitor Medication Therapy Management Clinic 05/17/2024, 7:58 AM documented in this encounter Plan of Treatment Upcoming Encounters Date Type Department Care Team (Late st Contact Info) Description 05/20/2024 11:45 AM EDT Imaging Radiology [facility] [place] [address] 05/31/2024 10:00 AM EDT Laboratory Laboratory, [facility] [address] [facility] [place] [phone] [facility] [address] [facility] [place] [address] 06/01/2024 10:00 AM EDT Office Visit Cardiology, [facility] [address] [place] [address] William Snider DO [address] [place] [address] 06/09/2024 2:00 PM EDT Office Visit Gastroenterology, [facility] [address] [place] [address] Kary Perez CRNP [address] [place] [address] 07/21/2024 11:40 AM EST [address] [address] Nisa Goodrich PA-C [address] [place] [address] 08/16/2024 8:00 AM EST Office Visit Pharmacy, [facility] [address] [place] [address] [facility] [address] [place] [address] 09/06/2024 11:00 AM EST Office Visit [place] [address] [facility] [place] [phone] Nisa Goodrich PA-C [address] [place] [address] 09/07/2024 10:22 AM EST Hospital Encounter OR [facility], Operating Room, [facility] - 4th Floor [address] [place] [address] Marciano Lopez MD [address] [place] [address] 09/07/2024 10:22 AM EST - 09/07/2024 10:58 AM EST Surgery OR [facility], Operating Room, [facility] - 4th Floor [address] [place] [address] Marciano Lopez MD [address] [place] [address] COLONOSCOPY FLEXIBLE PROXIMAL DIAGNOSTIC 09/08/2024 7:40 AM EST Office Visit [facility] [address] [place] [phone] Alonso Daigle MD [address] [facility] [place] [address] 09/14/2024 8:45 AM EST Office Visit Orthopaedics Spine Surgery, [facility] [place] [address] [place] [address] Kleber Batres MD [address] [place] [address] Scheduled Procedures Name Priority Associated Diagnoses Date/Ti [...] 090 05/2022, 02/09/2021, Additional history exists GFR 05/12/2025 05/12/2024, 0 [...] goal of less than 7.0% (HCC)- Primary Blood in stool documented in this encounter Advance Directives * Full Code (Latest Code Status on File) Date Activated Date Inactivated Comments 07/05/2019 10:32 AM 07/05/2019 4:23 PM This order reflects the patients wishes and were consensually agreed upon. Care Teams Ceramics Artist Relationship Specialty Start Date End Date Nisa Goodrich PA-C [address] [place] [facility] [place] [place] [address] PCP - General Physician Sales Representative 03/14/24 documented as of this encounter
--- OUTSIDE RECORDS SUMMARY | 2024-06-04 05:53 | External Medical Summary ---
Author Name Unknown Address Unknown Organization [id number]:[facility] - [address] [place] [id number] Laboratory Report Ordering Provider Test Date Status CHENG PIKE 05/13/2024 12:15:58 Final Observation Date Value Abnormality Reference (Units) Status Bacteria identified in Specimen by Culture 05/13/2024 12:15:58 No Aeromonas species or Plesiomonas species isolated. Final Test: Gastrointestinal Patho gen Panel Culture
Specimen Source: Stool
Specimen Type: Stool
Specimen Date: 05/13/2024 1215
Result Date: 05/15/2024 1048
Result Status: Final result
Resulting Lab: [facility]
[address]
[place] [address]

CULTURE

No Aeromonas species or Plesiomonas species isolated.

null Performing Location [facility] - [address] [facility] [place] [address]
--- OUTSIDE RECORDS SUMMARY | 2024-06-04 05:54 | External Medical Summary | Summary of Care ---
Author Name Unknown Organization [facility] Address [address] [place] [address] Phone [phone] Care Team Providers Care Market Relationship Manager Name Role Phone Alonso Daigle MD Primary Care Provider [phone]- [phone] Encounter Details Date Type Department Care Team (Latest Contact Info) Description 11/23/2022 8:30 PM EDT - 11/23/2022 11:59 PM EDT Hospital Encounter Radiology Film File [address] [place] [address] Discharge Disposition: Home - Self Care Allergies No known active allergiesdocumented as of this encounter (statuses as of 05/07/2024) Medications Medication Sig Dispensed Refills Start Date [...] Active Fexofenadine HCl 180 MG Oral Tablet (Amairani)Indications: Chronic rhinitis Take 1 Tab by mouth daily. 90 Tab 3 04/07/2021 Active documented as of this encounter (statuses as of 05/07/2024) Active Problems Problem Noted Date Diagnosed Date [...] as of this encounter (statuses as of 05/07/2024) Resolved Problems Problem Noted Date Diagnosed Date [...] as of this encounter (statuses as of 05/07/2024) Immunizations Name Administration Dates Next Due COVID-19 mRNA, LNP-s, No Pre serve, 2-Dose Series (Craz[employer]) 07/30/2021,11/30/2020,11/09/2020 Covid-19, Mrna, Lnp-s, Pf, B ivalent, 30 Mcg, IM, 12 yrs and above (Crazidea) 06/20/2022 HEP A - Hepatitis A (Adult > 18 yrs) 02/16/2010, 09/15/2009 Hepatitis B, 20+ yrs 05/15/2016,12/13/2015,11/07 Pneumococcal Polysaccharide PPV23 (Pneumovax) 07/30/2021,09/12/2011 Seasonal Influenza, PF, 6 M & above, [...] Cigarettes 1 30 1 09/25/1971 - 07/26/2002 Smokeless Tobacco: Never Comments:30 pack year [...] Team (Late st Contact Info) Description 05/12/2024 1:00 PM EDT Office Visit Gastroenterology, [facility] [address] [place] [address] Kary Perez CRNP [address] [place] [address] 05/17/2024 8:00 AM EDT Office Visit Pharmacy, [facility] [address] [place] [address] [facility] [address] [place] [address] 06/01/2024 10:00 AM EDT Office Visit Cardiology, [facility] [address] [place] [address] Kopinski, William O, DO [address] [place] [address] 07/01/2024 9:16 AM EDT Hospital Encounter [facility], Operating Room, [facility] - 4th Floor [address] [place] [address] Marciano Lopez MD [address] [place] [address] 07/01/2024 9:16 AM EDT - 07/01/2024 9:52 AM EDT Surgery [facility], Operating Room, [facility] - 4th Floor [address] [facility] [place] [phone] Marciano Lopez MD [address] [place] [address] COLONOSCOPY FLEXIBLE PROXIMAL DIAGNOSTIC 07/21/2024 11:40 AM EST Office Visit [place] [address] [place] [facility] [place] [address] Nisa Goodrich PA-C [address] [place] [facility] [place] [address] 09/06/2024 11:00 AM EST Office Visit [place] [address] [place] [facility] [place] [address] Nisa Goodrich PA-C [address] [place] [facility] [place] [address] 09/08/2024 7:40 AM EST Office Visit [facility] [address] [place] [facility] [address] Alonso Daigle MD [address] [place] [facility] [address] 09/14/2024 8:45 AM EST Office Visit Orthopaedics Spine Surgery, [facility] [place] [address] [place] [address] Kleber Batres MD [address] [place] [address] Scheduled Procedures Name Priority Associated Diagnoses Date/Ti [...] Blood Test 2001 Depression Screening 05/05/2021 05/05/2020 Pneumococcal Vaccine: 65+ Years (2 of 2 - PCV) 07/30/2022 07/30/2021, 09/12/2011 Adult Wellness Visit 2022 COVID-19 Vaccine ( - 2022- season) 2024 06/30/2023, 06/30/2023, 06/20/2022, Additional history exists HbA1c 08/17/2024 02/16/2024, 12/30, 10/08/2023, Additional history exists Diabetic Foot Exam 09/03/2024 09/03/2023, 0 02/09/2021, 10/05/2018, Additional history exists Diabetic Eye Exam 10/07/2024 10/07/2023, 09/08/2020 Albumin/Creatinine Ratio 10/08/2024 024, 05/10/2022, 09/24/2021, Additional history exists B-12 10/08/2024 10/08/2023, 09/0 05/2022, 02/09/2021, Additional history exists GFR 05/04/2025 05/04/2024, 04/01, 03/08/2024, Additional history exists Colonoscopy 05/07/2028 05/07/2018, 09/0 01/2018, 01/13/2007 DTap/Tdap Vaccines (4 - Td or Tdap) 04/09/2029 04/09/2019, 04/05/2011, 01/30/2010, Additional history exists Colorectal Cancer Screening 04/23/2029 Sigmoidoscopy 04/23/2029 04/23/2024 Hepatitis B Vaccine Completed 05/15/2016, 12/13/2015, 11/08/2015 Zoster Vaccines Completed 02/09/2021, 09/28/2020 AAA Screening Completed 05/24/2022 Influenza Vaccine (FLU shot) Completed 10/2023, 06/30/2023, 05/10/2022, Additional history exists HPV (Gardasil) Vaccine Aged Out No lo nger eligible based on patient's age to complete this topic MENINGOCOCCAL (MENACTRA/MENVEO) Aged Out No longer eligible based on patient's age to complete this topic documented as of this encounter Medical Devices Not on filedocumented as of this encounter Procedures Procedure Name Priority Date/Time Associated Diagnosis Comments RADIOLOGY EXAM - CT (IMAGES ONLY, NO REPORT) Routine 11/23/2022 8:30 PM EDT documented in this encounter Results * RADIOLOGY EXAM - CT (IMAGES ONLY, NO REPORT) (11/23/2022 8:30 PM EDT) 11/23/2022 8:28 PM EDT Narrative Scheduling, Silent - 05/06/2024 5:13 PM EDT This is an imaging study not interpreted or resulted by a [facility]. Nisa Goodrich PA-C RAD CT documented in this encounter Advance Directives * Full Code (Latest Code Status on File) Date Activated Date Inactivated Comments 07/05/2019 10:32 AM 07/05/2019 4:23 PM This order reflects the patients wishes and were consensually agreed upon. Care Teams Market Relationship Manager Relationship Specialty Start Date End Date Alonso Daigle MD [address] [place] [address] PCP - General 08/28/01 03/13/24 documented as of this encounter
--- OUTSIDE RECORDS SUMMARY | 2024-06-04 05:54 | External Medical Summary | Summary of Care ---
Author Name Unknown Organization [facility] Address [address] [place] [address] Phone [phone] Care Team Providers Care Restaurant Hourly Manager Name Role Phone Nisa Goodrich PA-C Primary Care Provider [phone] Reason for Referral * Precert (Within 10 days (routine)) - Pending Review Specialty Diagnoses / Procedures Referred By Delbert stephen Referred To Contact Radiology Diagnoses BRBPR (bright red blood per rectum) Internal hemorrhoids Infectious colitis Diarrhea of presumed infectious origin Gastroesophageal reflux disease without esophagitis Procedures CT ABD/PELVIS W IV AND W ORAL CONTRAST Kary Perez CRNP [address] [place] [address] Referral ID Status Reason Start Date Expiration Date V isits Requested Visits Authorized [id number] Pending Review 05/12/2024 999 [id number] Reason for Visit * Reason Comments NEW PATIENT New pt ref by Kyle Aranda for GI bleed. Pt states he has been having rectal bleeding since end of January. Pt c/o decreased appetite. Loose bloody stools. Urgency to have a BM after eating. Pt recently had cardiac stents placed in January. Pt asking if he should keep colo 07/01/24. Pt had EGD/COLO at [facility] while inpt. * Evaluate & Treat - Unlimited Visits (Within 30 days (routine)) - Authorized Specialty Diagnoses / Procedures Referred By Delbert stephen Referred To Contact Gastroenterology Diagnoses HTN, goal below 140/90 Chronic coronary artery disease NSVT (nonsustained ventricular tachycardia) (HCC) Dyslipidemia, goal LDL below 70 Chest pain Presence of stent in LAD coronary artery Dizziness Gastrointestinal hemorrhage, unspecified gastrointestinal hemorrhage type Rosa Fajardo PA-C [address] [facility] [place] [address] [facility] [address] [facility] [place] [address] Referral ID Status Reason Start Date Expiration Date Visits Requested Visits Authorized [id number] Authorized Specialty Services Required 04/16/2024 [id number] Encounter Details Date Type Department Care Team (Late st Contact Info) Description 05/12/2024 1:00 PM EDT Office Visit Gastroenterology, [facility] [address] [facility] [place] [address] Kary Perez CRNP [address] [facility] [place] [address] BRBPR (bright red blood per rectum)*; Internal hemorrhoids; Infectious colitis; Diarrhea of presumed [...] Daily 1 Cap 0 11/20/19 12 Active Potassium Gluconate 550 MG TABS Take [...] meals. 180 Tablet 3 10/17/19 24 Active Atorvastatin Calcium 80 MG Oral Tablet [...] on tongue. 20 Tablet 02/09/20 24 Active Esomeprazole Magnesium 20 MG Oral Capsule [...] thing in the morning. 03/15/20 24 Active Metoprolol Succinate ER 25 MG Oral Tablet Extended Release 24 Hour (toPROL XL)Indications:HTN , goal below 140/90,Chronic coronary artery disease,NSVT (nonsustained ventricular tachycardia) (HCC),Dyslipidemia , goal LDL below 70 Take one half Tablet by mouth in the morning. 45 Tablet 3 04/16/20 24 Active Metoprolol Succinate [...] morning. 34 Tablet 11 04/16/20 24 Active Vitron-C 65-125 MG Oral Tablet (Iron-Vitamin C 65-125 mg per tab) Take 1 Tablet by mouth in the morning. Active Cholestyramine 4 GM Oral Packet (Questran)Indicati ons:BRBPR (bright red blood per rectum),Internal hemorrhoids,Infect ious colitis,Diarrhea of presumed infectious origin,Gastroesoph ageal reflux disease without esophagitis Take 1 Packet by mouth in the morning and 1 Packet before bedtime. mixed with liquid. Must separate medication by 4 hours from other meds.. 180 Packet 1 05/12/20 24 Active Magnesium 250 MG Tablet Take 1 Tablet by mouth in the morning. 10/05/19 19 024 Discontinued(Ad verse reaction) Hydrocortisone Acetate 25 MG Rectal Suppository (Anusol-HC)Indicat ions:Rectal bleeding Administer into the rectum 2 times a day in the morning and at bedtime as needed for Hemorrhoids. Up to 2 weeks. 24 Suppository 1 03/22/20 24 024 Discontinued(Pa mandeep preference/disc ontinuation) Metamucil Fiber Oral Tablet Chewable Take by mouth. 024 Discontinued documented as of this encounter [...] mRNA, LNP-s, No Pre serve, 2-Dose Series ([employer]) 07/30/2021,11/30/2020,11/09/2020 COVID-19, MRNA-LNP, 23-24, P F, 30 MCG/0.3 mL, 12 YRS AND ABOVE, IM ([facility] 06/30/2023 Covid-19, Mrna, Lnp-s, Pf, B ivalent, 30 Mcg, IM, 12 yrs and above ([place]) 06/20/2022 HEP A - Hepatitis A (Adult [...] Sign Reading Time Taken Comments Blood Pressure 130/74 05/12/2024 12:55 PM EDT Pulse 80 05/12/2024 12:55 PM EDT Temperature 36.7 C (98.1 F) 05/12/2024 12:55 PM E DT Respiratory Rate - - Oxygen Saturation - - Inhaled Oxygen Concentration - - Weight 110.7 kg (244 lb) 05/12/2024 12:55 PM EDT Height - - Body Mass Index 37.1 04/29/2024 10:46 AM EDT documented in this encounter Patient Instructions * Patient Instructions* Kary Perez CRNP - 05/12/2024 1:27 PM EDT -HOLD fish oil -STOP magnesium -Labs today -Complete stool samples -Schedule CT of the abdomen -Start Cholestyramine 4 grams twice per day-- must separate dose 4 hours from other meds documented in this encounter Progress Notes * Kary Perez CRNP - 05/12/2024 1:00 PM EDT Images from the original note were not included. Gastroenterology Outpatient Visit 05/12/2024 Referring physician:Rosa Fajardo PA-C PCP: Nisa Goodrich PA-C Past medical history: History of infectious colitis secondary to enterotoxigenic E.coli and norovirus, 04/2023 Internal Hemorrhoids GERD Coronary artery disease, status post AMY to the LAD 02/11/2024. 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 Med management recommended for RCA occlusion Chronic chest pain Hypertension Hyperlipidemia Diabetes Cervical spondylosis CC: Infectious colitis and GI bleeding HPI: 68-year-old male presenting to the gastroenterology clinic today as a new patient after being referred by Rosa Fajardo PA-C due to recent concerns regarding bright red blood per rectum. Patient carries a history of coronary artery disease with recent stent placement to the LAD in January of 2024. He is also known to have a chronic total occlusion of the RCA which was recommended to be medically managed. He is on both aspirin and Plavix. On 04/23/2024 patient underwent an upper endoscopy at [facility] showing normal esophagus and duodenum. Asigmoidoscopy was also performed at that time showing internal and external hemorrhoids, grade 2. Ascattered area of bilateral erythematous and congested mucosa was also found in the left colon and biopsies were taken-- results were benign. Concerns for infectious colitis (enterotoxigenic E.coli and norovirus per stool sample at [facility]). Treated with azithromycin 500 mg x 3 doses during hospitalization. Given Infectious properties Imodium was deferred. Patient was started on cholestyramine 4 g twice daily. Today the patient presents with his feeling poorly. Continues to have bright red bloody diarrhea about 4-6 times per day. Notes that he is unable to eat anything without having to run to the bathroom every 10-15 minutes following. He did note some small clots today in his stool. Has ongoing right upper and lower abdominal pain. Pain is somewhat constant. Does have some mild nausea. No vomiting. No fever chills. No cough. Also has concerns regarding positional lightheadedness. Tries to stay hydrated, but does not have an appetite, does not want to eat as it causes diarrhea. Notes significant fatigue worsening over the last week. Weight is down about 10 lb from January. Patient is compliant with all medications, and offers no side effects. Recently started taking Vitron-C per the recommendations of his daughter. No longer taking Metamucil or using Anusol, did not feel that these medications provided any benefit. Does not recall being prescribed cholestyramine. Current Outpatient Medications Medication Sig Dispense Refill ASPIRIN 81 MG OR TABS one tab by mouth daily 0 0 ONE DAILY MENS PO TABS 1 daily 0 FISH OIL 1000 MG PO CPDR 1 Daily 1 Cap 0 Potassium Gluconate 550 MG TABS Take by [...] 1 Capsule by mouth daily before breakfast. Gabapentin 100 MG Oral Capsule (Neurontin) Take [...] 1 Tablet by mouth in the morning. Cholestyramine 4 GM Oral Packet (Questran) Take 1 Packet by mouth in the morning and 1 Packet before bedtime. mixed with liquid. Must separate medication by 4 hours from other meds.. 180 Packet 1 Ondansetron 4 MG Oral Tablet Disintegrating (Zofran) Place 1 Tablet on tongue every 8 hours as needed for Nausea. dissolve on tongue. 20 Tablet 0 Metoprolol Succinate ER 25 MG Oral Tablet Extended Release 24 Hour (Toprol XL) Take 0.5 Tablets by mouth in the morning. 7 Tablet 0 No current facility-administered medications for this visit. Past Medical History: Diagnosis Date Dyslipidemia, goal to be determined HTN, goal below 140/90 11/08/2014 Pulmonary Nodule 07/03 0.7 cm RLL - stable on CT 07/03, 09/03, 03/03 Type 2 diabetes mellitus with hemoglobin A1c goal of less than 7.0% ([facility]) 12/05/2011 ICD-10 update of inactive term Past Surgical History: Procedure Laterality Date COLONOSCOPY, DIAGNOSTIC (RECTUM) 05/07/2018 normal, repeat 10 yrs/COLONOSCOPY FLEXIBLE PROXIMAL DIAGNOSTIC performed by Dominic Jimenez MD at ENDOSCOPY [facility] COLORECTAL CANCER SCREEN; NOT AT RISK 01/13/2007 repeat in [address] CHEST W CONTRAST mediastinal LAD and 0.7 cm nodule RLL - stable 07/03,09/03,03/03 KNEE ARTHROSCOPY/MENISCECTOMY Left 07/05/2019 ARTHROSCOPY KNEE MEDIAL OR LATERAL MENISCECTOMY performed by Aspen Villalpando DO at OR [facility] CA RPLCMT PROST AORTIC VALVE OPEN XCP HOMOGRF/STENT 02/11/2024 REPAIR INGUINAL HERNIA, UNDER 6 MO 3 months old STRESS ECHO (EXERCISE) 06/2005 nl UMBIL HERNIA REPAIR (REDUCIBLE) AGE 5+YR N/A 08/24/2018 08/24/2018 umbilical hernia repair -- [facility] DR. Ronnie Gee Social History Tobacco Use Smoking status: Former Current packs/day: 0.00 Average packs/day: 1 pack/day for 30.0 years (30.0 ttl pk-yrs) Types: Cigarettes Start date: 07/26/1972 Quit date: 07/26/2002 Years since quittin.8 Passive exposure: Never Smokeless tobacco: Never Tobacco comments: 30 pack year history Vaping Use Vaping status: Never Used Substance Use Topics Alcohol use: Yes Comment: rarely Drug use: No Review of patient's allergies indicates: No Known Allergies Review of Systems: See HPI for pertinent positives. All others negative, other than those noted in HPI. Physical Exam: BP 130/74 | Pulse 80 | Temp 36.7 C (98.1 F) | Wt 110.7 kg (244 lb) | BMI 37.10 kg/m | BSA 2.3m GENERAL: Well developed and well nourished in no acute distress. SKIN: No rashes, ulcers, jaundice or spider angiomata. HEENT: Normocephalic, sclera clear, pharynx normal. NECK: Supple, no lymphadenopathy, no masses or thyroid enlargement. LUNGS: Clear to auscultation bilaterally, no respiratory distress or accessory muscles used. HEART: Regular rate & rhythm, no murmurs and no gallops. ABDOMEN: Normal bowel sounds, soft. Right-sided abdominal discomfort EXTREMITIES: No palmar erythema, no ankle edema, no skin discoloration, no clubbing, no cyanosis. NEURO: No lateralizing findings. Sensory/Motor grossly normal. Lab data/imaging study review: Sigmoidoscopy at [facility] 04/23/2024 Sigmoidoscopy biopsy results 04/23/2024 at [facility] Upper endoscopy 04/23/2024 at [facility] Colonoscopy 05/07/2018 Findings: The perianal and digital rectal examinations were normal. The entire examined colon appeared normal on direct and retroflexion views. Impression: - The entire examined colon is normal on direct and retroflexion views. - No specimens collected. Recommendation: - Repeat colonoscopy in 10 years for screening purposes. - Discharge patient to home. Impression/Plan: This is a(n) 68 year old male who is being evaluated in the office for ongoing care/risk managementfor the below diagnoses. 1. BRBPR (bright red blood per rectum) 2. Internal hemorrhoids 3. Infectious colitis 4. Diarrhea of presumed infectious origin Bright red blood per rectum origin likely multifactorial due to internal hemorrhoids as well as presumed infectious colitis. EGD and sigmoidoscopy results as stated above. Stool samples at [facility] revealing ETEC and norovirus infection- treated with azithromycin inpatient. Bleeding likely exacerbated due to the need for dual antiplatelet therapy following recent PCI. Stool samples ordered including stool pathogen and C diff Restart cholestyramine 4 g twice daily due to diarrhea. Cholestyramine binds to multiple medications-- He was instructed to separate this medicine by 4 hours from all other medications. Unable to useImodium due to infectious properties. We will need to eventually proceed with colonoscopy, spoke with Cardiology--Plavix can be held at 6month interval (08/12/2024), will need to push back study--aspirin will need continued perioperatively. Plavix is to be resumed following procedure. Okay to use preparation H as needed for internal hemorrhoids. Recommend patient should consume 20-30 g of in-soluble fiber daily , (i.e. Metamucil) and drink plenty of fluids (1.5-2 L of water per day). Avoid straining with bowel movements. Hold fish oil supplement as well as magnesium supplementation. CBC and BMP + Mag ordered following today's appointment. CT of the abdomen and pelvis with contrast ordered to reassess right quadrant abdominal pain 5. Gastroesophageal reflux disease without esophagitis EGD unremarkable. Continue Nexium- with worsening GERD symptoms consider addition H2 radha. Patient trying to reach without to his vocational case manager, Jacquelyn Lermabrianne but has been unsuccessful. Staff message sent. The patient agrees to the above plan and will call with additional questions or concerns. ER with all emergencies advised. Follow-up: Return in about 2 weeks (around 05/26/2024). | Check-out note: - Colonoscopy needs pushed back to after 08/12/2024 -Schedule CT abd/pelvis -Labs today I spent a total of Greater than 55 mins (exact time 80 mins) on the date of service in preparation,delivery, and documentation of the care provided to [employer] excluding any time spent in the performance of separately billed services or time spent by another provider/QHP. GISSEL [facility] Gastroenterology, [facility] This chart was completed in part utilizing [employer] Speech Voice Recognition Software. Grammatical errors, random [...] documented in this encounter Nursing Notes * Sofía Deleon CMA - 05/12/2024 12:52 PM EDT Chief Complaint Patient presents with NEW PATIENT New pt ref by Rosa Aranda for GI bleed. Pt states he has been having rectal bleeding since end january. Pt c/o decreased appetite. Loose bloody stools. Urgency to have a BM after eating. documented in this encounter Plan of Treatment Upcoming Encounters Date Type Department Care Team (Late st Contact Info) Description 05/12/2024 2:00 PM EDT [facility] [address] [place] [phone] [place] lux [facility] [address] [facility] [place] [address] Arrived 05/17/2024 8:00 AM EDT Office Visit Pharmacy, [facility] [address] [facility] [place] [address] [place], [facility] [address] [facility] [place] [address] 05/20/2024 11:45 AM EDT [facility] [address] [facility] [place] [address] 05/31/2024 10:00 AM EDT Laboratory Laboratory, [address] [place] [phone] [facility] [address] [facility] [place] [address] 06/01/2024 10:00 AM EDT Office Visit Cardiology, [facility] [address] [facility] [place] [address] William Snider DO [address] [place] [address] 06/09/2024 2:00 PM EDT Office Visit Gastroenterology, [facility] [address] [facility] [place] [address] Kary Perez CRNP [address] [place] [address] 07/21/2024 11:40 AM EST Office Visit [facility] [address] [facility] [phone] Nisa Goodrich PA-C [address] [place] [facility] [place] [address] 09/06/2024 11:00 AM EST Office Visit [place] [address] [place] [phone] Nisa Goodrich PA-C [address] [place] [address] 09/07/2024 10:22 AM EST Hospital Encounter OR [facility], Operating Room, [facility] - 4th Floor [address] [facility] [place] [phone] Marciano Lopez MD [address] [facility] [place] [address] 09/07/2024 10:22 AM EST - 09/07/2024 10:58 AM EST Surgery OR [facility], Operating Room, [facility] - 4th Floor [address] [facility] [place] [phone] Marciano Lopez MD [address] [facility] [place] [address] COLONOSCOPY FLEXIBLE PROXIMAL DIAGNOSTIC 09/08/2024 7:40 AM EST Office Visit [facility] [address] [facility] [phone] Alonso Daigle MD [address] [place] [facility] [place] [address] 09/14/2024 8:45 AM EST Office Visit Orthopaedics Spine Surgery, [facility] Fadi Garciawn [address] [place] [address] Kleber Batres MD [address] [place] [address] Scheduled Orders Name Type Priority Associated Diagnoses Order Schedule GASTROINTESTINAL PATHOGEN PANEL, STOOL Lab Routine BRBPR (bright red blood per rectum) Internal hemorrhoids Infectious colitis Diarrhea of presumed infectious origin Gastroesophageal reflux disease without esophagitis Expected: 05/12/2024, Expires: 05/12/2025 CLOSTRIDIUM DIFFICILE, PCR Lab Routine BRBPR (bright red blood per rectum) Internal hemorrhoids Infectious colitis Diarrhea of presumed infectious origin Gastroesophageal reflux disease without esophagitis Expected: 05/12/2024, Expires: 05/12/2025 CBC WITH WBC DIFFERENTIAL AND ANEMIA REFLEX WORKUP Lab Routine BRBPR (bright red blood per rectum) Internal hemorrhoids Infectious colitis Diarrhea of presumed infectious origin Gastroesophageal reflux disease without esophagitis Expected: 05/12/2024, Expires: 05/12/2025 MAGNESIUM Lab Routine BRBPR (bright red blood per rectum) Internal hemorrhoids Infectious colitis Diarrhea of presumed infectious origin Gastroesophageal reflux disease without esophagitis Expected: 05/12/2024, Expires: 05/12/2025 BASIC METABOLIC PANEL Lab Routine BRBPR (bright red blood per rectum) Internal hemorrhoids Infectious colitis Diarrhea of presumed infectious origin Gastroesophageal reflux disease without esophagitis Expected: 05/12/2024, Expires: 05/12/2025 CT ABD/PELVIS W IV AND W ORAL CONTRAST Medical Imaging Routine BRBPR (bright red blood per rectum) Internal hemorrhoids Infectious colitis Diarrhea of presumed infectious origin Gastroesophageal reflux disease without esophagitis Expected: 05/12/2024, Expires: 06/11/2025 Scheduled Procedures Name Priority Associated Diagnoses Date/Ti [...] Diagnoses Diagnosis BRBPR (bright red blood per rectum)- Primary Hemorrhage of rectum and anus Internal hemorrhoids [...] and were consensually agreed upon. Care Teams Restaurant Hourly Manager Relationship Specialty Start Date End Date Nisa Goodrich PA-C [address] [facility] [place] [address] PCP - General Physician Knockout Machine Operator 03/14/24 documented as of this encounter"
--- OUTSIDE RECORDS SUMMARY | 2024-06-04 05:54 | External Medical Summary | Summary of Care ---
Author Name Unknown Organization [facility] Address [address] [place] [address] Phone [phone] Care Team Providers Care Telecommunication Lines Repairer Name Role Phone Nisa Goodrich PA-C Primary Care Provider [phone] Reason for Referral * Precert (Within 10 days (routine)) - Pending Review Specialty Diagnoses / Procedures Referred By Delbert stephen Referred To Contact Radiology Diagnoses BRBPR (bright red blood per rectum) Internal hemorrhoids Infectious colitis Diarrhea of presumed infectious origin Gastroesophageal reflux disease without esophagitis Procedures CT ABD/PELVIS W IV AND W ORAL CONTRAST Kary Perez CRNP [address] [place] [address] Referral ID Status Reason Start Date Expiration Date V isits Requested Visits Authorized [id number] Pending Review 05/12/2024 999 999 Reason for [...] keep colo 07/01/24. Pt had EGD/COLO at [facility] while inpt. * Evaluate & Treat [...] gastrointestinal hemorrhage type Rosa Fajardo PA-C [address] [facility] [place] [address] [facility] 132 [facility] [place] [address] Referral ID Status Reason Start Date Expiration Date Visits Requested Visits Authorized [id number] Authorized Specialty Services Required 04/16/[phone] Encounter Details Date Type Department Care Team (Late st Contact Info) Description 05/12/2024 1:00 PM EDT Office Visit Gastroenterology, [facility] 132 [facility] [place] [address] Kary Perez CRNP [address] [facility] [place] [address] BRBPR (bright red blood per rectum)*; Internal [...] mRNA, LNP-s, No Pre serve, 2-Dose Series ([employer]) 07/30/2021,11/30/2020,11/09/2020 COVID-19, MRNA-LNP, 23-24, P F, 30 MCG/0.3 mL, 12 YRS AND ABOVE, IM ([facility]) 06/30/2023 Covid-19, Mrna, Lnp-s, Pf, B ivalent, 30 Mcg, IM, 12 yrs and above ([employer]) 06/20/2022 HEP A - Hepatitis A (Adult [...] status post AMY to the LAD 02/11/2024. 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 Med management [...] 04/23/2024 patient underwent an upper endoscopy at [facility] showing normal esophagus and duodenum. Asigmoidoscopy was also performed at that time showing internal and external hemorrhoids, grade 2. Ascattered area of bilateral erythematous and congested mucosa was also found in the left colon and biopsies were taken-- results were benign. Concerns for infectious colitis (enterotoxigenic E.coli and norovirus per stool sample at [facility]). Treated with azithromycin 500 mg x [...] causes diarrhea. Notes significant fatigue worsening over thelast week. Weight is down about 10 lb [...] goal of less than 7.0% ([facility]) 12/05/2011 ICD-10 update of inactive term Past Surgical History: Procedure Laterality Date COLONOSCOPY, DIAGNOSTIC (RECTUM) 05/07/2018 normal, repeat 10 yrs/COLONOSCOPY FLEXIBLE PROXIMAL DIAGNOSTIC performed by Dominic Jimenez MD at ENDOSCOPY [facility] COLORECTAL CANCER SCREEN; NOT AT RISK 01/13/2007 repeat in [address] CHEST W CONTRAST mediastinal LAD and 0.7 cm nodule RLL - stable 07/03,09/03,03/03 KNEE ARTHROSCOPY/MENISCECTOMY Left 07/05/2019 ARTHROSCOPY KNEE MEDIAL OR LATERAL MENISCECTOMY performed by Aspen Villalpando DO at OR [facility] SC RPLCMT PROST AORTIC VALVE OPEN XCP HOMOGRF/STENT 02/11/2024 REPAIR INGUINAL HERNIA, UNDER 6 MO 3 months old STRESS ECHO (EXERCISE) 06/2005 nl UMBIL HERNIA REPAIR (REDUCIBLE) AGE 5+YR N/A 08/24/2018 08/24/2018 umbilical hernia repair -- [facility] DR. Ronnie Gee Social History Tobacco [...] lb) | BMI 37.10 kg/m | BSA 2.3 m GENERAL: Well developed and well nourished in [...] normal. Lab data/imaging study review: Sigmoidoscopy at [facility] 04/23/2024 Sigmoidoscopy biopsy results 04/23/2024 at [facility] Upper endoscopy 04/23/2024 at [facility] Colonoscopy 05/07/2018 Findings: The perianal and [...] results as stated above. Stool samples at [facility] revealing ETEC and norovirus infection- treated [...] Patient trying to reach without to his block and case maker, Jacquelyn Lermabrianne but has been unsuccessful. Staff [...] time spent by another provider/QHP. GISSEL [facility] Gastroenterology, [facility] This chart was completed in part utilizing [employer] Speech Voice Recognition Software. Grammatical errors, random [...] Description 05/12/2024 2:00 PM EDT [facility] [address] [place] [phone] HurtadoEllie lux [facility] [address] [facility] [place] [address] BRBPR (bright red blood per rectum); Internal hemorrhoids; Infectious colitis; Diarrhea of presumed infectious origin; Gastroesophageal reflux disease without esophagitis 05/17/2024 8:00 AM EDT Office Visit Pharm[facility], [facility] [place] [address] [facility] [address] [facility] [place] [address] 05/20/2024 11:45 AM EDT Imaging Rad[facility] [address] [facility] [place] [address] 05/31/2024 10:00 AM EDT Laboratory Laboratory, [address] [place] [phone] [facility] [address] [facility] [place] [address] 06/01/2024 10:00 AM EDT Office Visit Cardiology, [facility] [address] [place] [address] William Snider DO [address] [place] [address] 06/09/2024 2:00 PM EDT Office Visit Gastroenterology, [facility] [address] [place] [address] Kary Perez CRNP [address] [place] [address] 07/21/2024 11:40 AM EST Office Visit [facility] [address] [place] [phone] Nisa Goodrich PA-C [address] [place] [address] 09/06/2024 11:00 AM EST Office Visit [facility] [address], [place] [phone] Nisa Goodrich PA-C [address] [place] [address] 09/07/2024 10:22 AM EST Hospital Encounter OR [facility], Operating Room, [facility] - 4th Floor [address] [place] [phone] Marciano Lopez MD [address] [place] [address] 09/07/2024 10:22 AM EST - 09/07/2024 10:58 AM EST Surgery OR [facility], Operating Room, [facility] - 4th Floor [address] [facility] [place] [phone] Marciano Lopez MD [address] [place] [address] COLONOSCOPY FLEXIBLE PROXIMAL DIAGNOSTIC 09/08/2024 7:40 AM EST Office Visit [place] [address], [place] [phone] Alonso Daigle MD [address] [place] [address] 09/14/2024 8:45 AM EST Office Visit Orthopaedics Spine Surgery, [facility] Fadi Garciawn [address] [place] [address] Kleber Batres MD [address] [place] [address] Pending Results Name Type Priority Associated Diagnoses Date /Time CBC WITH WBC DIFFERENTIAL AND ANEMIA REFLEX WORKUP Lab Routine BRBPR (bright red blood per rectum) Internal hemorrhoids Infectious colitis Diarrhea of presumed infectious origin Gastroesophageal reflux disease without esophagitis 05/12/2024 1:50 PM EDT MAGNESIUM Lab Routine BRBPR (bright red blood per rectum) Internal hemorrhoids Infectious colitis Diarrhea of presumed infectious origin Gastroesophageal reflux disease without esophagitis 05/12/2024 1:50 PM EDT BASIC METABOLIC PANEL Lab Routine BRBPR (bright red blood per rectum) Internal hemorrhoids Infectious colitis Diarrhea of presumed infectious origin Gastroesophageal reflux disease without esophagitis 05/12/2024 1:50 PM EDT Scheduled Orders Name Type Priority [...] 10/08/2023, 05/2022, 02/09/2021, Additional history exists GFR 05/04/2025 05/04/2024, 04/01, 03/08/2024, Additional history exists Colonoscopy 05/07/2028 05/07/2018, 01/2018, 01/13/2007 DTap/Tdap Vaccines [...] Gastroesophageal reflux disease without esophagitis Esophageal reflux BRBPR (bright red blood per rectum) Hemorrhage [...] and were consensually agreed upon. Care Teams Telecommunication Lines Repairer Relationship Specialty Start Date End Date Nisa Goodrich PA-C [address] [facility] [place] [address] PCP - General Physician Business Division Chair 03/14/24 documented as of this encounter"
--- OUTSIDE RECORDS SUMMARY | 2024-06-04 05:54 | External Medical Summary | Summary of Care ---
Author Name Unknown Organization [facility] Address [address] [place] [address] Phone [phone] Care Team Providers Care Carton Liner Name Role Phone Nisa Goodrich PA-C Primary Care Provider [phone] Encounter Details Date Type Department Care Team (Latest Contact Info) Description 04/25/2024 11:20 PM EDT - 04/25/2024 11:59 PM EDT Hospital Encounter Radiology Film File [address] [place] [address] Discharge Disposition: Home - Self [...] Active Hydrocortisone Acetate 25 MG Rectal Suppository (Anusol-HC)Indicatio ns:Rectal bleeding Administer into the rectum 2 times a day in the morning and at bedtime as needed for Hemorrhoids. Up to 2 weeks. 24 Suppository 1 03/22/2024 Active Metamucil Fiber Oral Tablet Chewable Take by mouth. Activ e Metoprolol Succinate ER 25 MG Oral Tablet [...] mRNA, LNP-s, No Pre serve, 2-Dose Series ([employer]) 07/30/2021,11/30/2020,11/09/2020 COVID-19, MRNA-LNP, 23-24, P F, 30 MCG/0.3 mL, 12 YRS AND ABOVE, IM ([employer] 06/30/2023 Covid-19, Mrna, Lnp-s, Pf, B ivalent, 30 Mcg, IM, 12 yrs and above ([employer]) 06/20/2022 HEP A - Hepatitis A (Adult [...] 05/12/2024 1:00 PM EDT Office Visit Gastroenterology, [facility] [address] [place] [address] Kary Perez CRNP [address] [place] [address] 05/17/2024 8:00 AM EDT Office Visit Pharmacy, [facility] [address] [place] [address] [facility] [address] [place] [address] 06/01/2024 10:00 AM EDT Office Visit Cardiology, [facility] [address] [place] [address] William Snider DO [address] [place] [address] 07/01/2024 9:16 AM EDT Hospital Encounter OR [facility], Operating Room, [facility] - 4th Floor [address] [facility] [place] [address] Marciano Lopez MD [address] [place] [address] 07/01/2024 9:16 AM EDT - 07/01/2024 9:52 AM EDT Surgery OR [facility], Operating Room, [facility] - 4th Floor [address] [place] [phone] Marciano Lopez MD [address] [place] [address] COLONOSCOPY FLEXIBLE PROXIMAL DIAGNOSTIC 07/21/2024 11:40 AM EST [facility] [place] [address] [facility] [phone] Nisa Goodrich PA-C [address] [facility] [address] 09/06/2024 11:00 AM EST Office Visit [place] [address] [facility] [phone] Nisa Goodrich PA-C [address] [place] [facility] [place] [address] 09/08/2024 7:40 AM EST Office Visit [facility] [place] [address] [facility] [address] Alonso Daigle MD [address] [place] [address] 09/14/2024 8:45 AM EST Office Visit [facility] [address] [place] [address] Kleber Batres MD [address] [place] [address] Scheduled Procedures Name Priority Associated Diagnoses Date/Ti [...] Wellness Visit 2022 COVID-19 Vaccine ( season) 2024 06/30/2023, 06/30/2023, 06/20/2022, Additional history [...] Date/Time Associated Diagnosis Comments RADIOLOGY EXAM - MRI (IMAGES ONLY, NO REPORT) Routine 04/25/2024 11:20 PM EDT documented in this encounter Results * RADIOLOGY EXAM - MRI (IMAGES ONLY, NO REPORT) (04/25/2024 11:20 PM EDT) 04/25/2024 11:1 9 PM EDT Narrative Scheduling, Silent - 05/06/2024 5:11 PM EDT This is an imaging study not interpreted or resulted by a [facility] or [employer] contracted radiologist. Nisa Goodrich PA-C RAD MRI-MRA documented in this encounter Advance Directives * Full Code (Latest Code Status on File) Date Activated Date Inactivated Comments 07/05/2019 10:32 AM 07/05/2019 4:23 PM This order reflects the patients wishes and were consensually agreed upon. Care Teams Carton Liner Relationship Specialty Start Date End Date Nisa Goodrich PA-C [address] [place] [facility] [place] [address] PCP - General Physician Shingler 03/14/24 documented as of this encounter
--- OUTSIDE RECORDS SUMMARY | 2024-06-04 05:54 | External Medical Summary ---
Author Name Unknown Address Unknown Organization [id number]:[facility] [place] [address] [facility] [place] [address] Laboratory Report Ordering Provider Test Date Status CHENG PIKE 05/12/2024 13:50:51 Final Observation Date Value Abnormality Reference (Units ) Status SYNC LEUKOCYTES IN BLOOD BY AUTOMATED COUNT 05/12/2024 13:50:51 5.91 4.00-10.80 (K/uL) Final Segs 05/12/2024 13:50:51 47.9 40.0-75.0 (%) Final Lymphs % 05/12/2024 13:50:51 28.1 18.0-42.0 (%) Final Monos 05/12/2024 13:50:51 17.6 Above high normal 1.0-11.0 (%) Final Eosinophils 05/12/2024 13:50:51 4.4 0.0-6.0 (%) Final Basos 05/12/2024 13:50:51 1.5 0.0-2.0 (%) Final Immature Granulocyte, Percent 05/12/2024 13:50:51 0.5 0.0-2.0 (%) Final Absolute Segs 05/12/2024 13:50:51 2.83 1.80-7.70 (K/uL) Final Lymphs, absolute 05/12/2024 13:50:51 1.66 1.00-4.80 (K/ul) Final Monos, Abs 05/12/2024 13:50:51 1.04 0.00-1.10 (K/uL) Final Eos, Abs 05/12/2024 13:50:51 0.26 0.00-0.70 (K/uL) Final Basos, Abs 05/12/2024 13:50:51 0.09 0.00-0.20 (K/uL) Final Immature Granulocytes, Number 05/12/2024 13:50:51 0.03 0.00-0.20 (K/uL) Final Performing Location [facility] [place] [facility] [address] [facility] [address]
--- OUTSIDE RECORDS SUMMARY | 2024-06-04 05:54 | External Medical Summary ---
Author Name Unknown Address Unknown Organization K01:[facility] - [address] [facility] [address] Laboratory Report Ordering Provider Test Date Status CHENG PIKE 05/12/2024 13:50:51 Final Observation Date Value Abnormality Reference (Units ) Status Magnesium 05/12/2024 13:50:51 2.0 1.5-2.6 (m g/dL) Final Performing Location LAB[facility]ATORY [facility] - [address] [facility] [address]
--- OUTSIDE RECORDS SUMMARY | 2024-06-04 05:54 | External Medical Summary | Summary of Care ---
Author Name Unknown Organization [facility] Address [address] [place] [address] Phone [phone] Care Team Providers Care Tugboat Dispatcher Name Role Phone Nisa Goodrich PA-C Primary Care Provider [phone] Reason for Referral * Precert (Within 10 days (routine)) - Pending Review Specialty Diagnoses / Procedures Referred By Delbert stephen Referred To Contact Radiology Diagnoses BRBPR (bright red blood per rectum) Internal hemorrhoids Infectious colitis Diarrhea of presumed infectious origin Gastroesophageal reflux disease without esophagitis Procedures CT ABD/PELVIS W IV AND W ORAL CONTRAST Shahzad Anand CRNP [address] [place] [address] Referral ID Status Reason Start Date Expiration Date V isits Requested Visits Authorized [id number] Pending Review 05/12/2024 999 999 Reason for [...] keep colo 07/01/24. Pt had EGD/COLO at [facility] while inpt. * Evaluate & [...] Gastrointestinal hemorrhage, unspecified gastrointestinal hemorrhage type Rosa Fajrado PA-C 132 [facility] [place] [address] [facility] 132 [facility] [place] [address] Referral ID Status Reason Start Date Expiration Date Visits Requested Visits Authorized [id number] Authorized Specialty Services Required 04/16/2024 999 999 Encounter Details Date Type Department Care Team (Late st Contact Info) Description 05/12/2024 1:00 PM EDT Office Visit Gastroenterology, [facility] 132 [facility] [place] [address] Shahzad Anand CRNP 132 [facility] [place] [address] BRBPR (bright red blood per rectum)*; Internal [...] meds.. 180 Packet 1 05/12/20 24 Active Mesalamine 1.2 GM Oral Tablet Delayed Release (Lialda)Indication s:BRBPR (bright red blood per rectum),Internal hemorrhoids,Infect ious colitis,Diarrhea of presumed infectious origin,Gastroesoph ageal reflux disease without esophagitis Take 2 Tablets by mouth in the morning. 120 Tablet 05/12/20 24 Active Dicyclomine HCl 10 MG Oral Capsule (Bentyl)Indication s:BRBPR (bright red blood per rectum),Internal hemorrhoids,Infect ious colitis,Diarrhea of presumed infectious origin,Gastroesoph ageal reflux disease without esophagitis Take 1 Capsule by mouth in the morning and 1 Capsule before bedtime. 60 Capsule 2 05/12/20 24 Active Magnesium 250 MG Tablet Take 1 Tablet by mouth in the morning. 10/05/19 19 024 Discontinued(Ad verse reaction) Hydrocortisone Acetate 25 MG Rectal Suppository (Anusol-HC)Indicat ions:Rectal bleeding Administer into the rectum 2 times a day in the morning and at bedtime as needed for Hemorrhoids. Up to 2 weeks. 24 Suppository 1 03/22/20 24 024 Discontinued(Stephen kaufman preference/disc ontinuation) Metamucil Fiber Oral Tablet Chewable [...] mRNA, LNP-s, No Pre serve, 2-Dose Series ([employer]) 07/30/2021,11/30/2020,11/09/2020 COVID-19, MRNA-LNP, 23-24, P F, 30 [...] this encounter Patient Instructions * Patient Instructions* Shahzad Anand CRNP - 05/12/2024 1:27 PM EDT -HOLD fish oil -STOP magnesium -Labs today -Complete stool samples -Schedule CT of the abdomen -Start Cholestyramine 4 grams twice per day-- must separate dose 4 hours from other meds documented in this encounter Progress Notes * Shahzad Anand CRNP - 05/12/2024 3:25 PM EDT Addendum: Case discussed with Dr. Marciano Sarabia. 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 In addition to cholestyramine recommend starting mesalamine 2.4 g x2 months as well as dicyclomine 10 mg twice daily. Will see patient in close follow on 06/09/2024. If bleeding has not improved will plan on proceeding with colonoscopy in July on dual antiplatelet therapy as previously planned. Patient called and updated. Agreeable to further instructions. GISSEL Anderson 05/12/2024 3:26 PM * Shahzad Anand CRNP - 05/12/2024 1:00 PM EDT Images from the original note were not included. Gastroenterology Outpatient Visit 05/12/2024 Referring physician:Rosa Fajardo PA-C PCP: Nisa Goodrich PA-C Past medical history: History of infectious colitis secondary to enterotoxigenic E.coli and norovirus, 04/2023 Internal Hemorrhoids GERD Coronary artery disease, status post AMY to the LAD 02/11/2024. 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 Med management [...] 04/23/2024 patient underwent an upper endoscopy at [facility] showing normal esophagus and duodenum. Asigmoidoscopy was also performed at that time showing internal and external hemorrhoids, grade 2. Ascattered area of bilateral erythematous and congested mucosa was also found in the left colon and biopsies were taken-- results were benign. Concerns for infectious colitis (enterotoxigenic E.coli and norovirus per stool sample at [facility]). Treated with azithromycin 500 mg [...] hemoglobin A1c goal of less than 7.0% ([facility]) 12/05/2011 ICD-10 update of inactive term Past Surgical History: Procedure Laterality Date COLONOSCOPY, DIAGNOSTIC (RECTUM) 05/07/2018 normal, repeat 10 yrs/COLONOSCOPY FLEXIBLE PROXIMAL DIAGNOSTIC performed by Dominic Jimenez MD at ENDOSCOPY [facility] COLORECTAL CANCER SCREEN; NOT AT RISK 01/13/2007 repeat in [address] CHEST W CONTRAST mediastinal LAD and 0.7 cm nodule RLL - stable 07/03,09/03,03/03 KNEE ARTHROSCOPY/MENISCECTOMY Left 07/05/2019 ARTHROSCOPY KNEE MEDIAL OR LATERAL MENISCECTOMY performed by Aspen Villalpando DO at OR [facility] MA RPLCMT PROST AORTIC VALVE OPEN XCP HOMOGRF/STENT 02/11/2024 REPAIR INGUINAL HERNIA, UNDER 6 MO 3 months old STRESS ECHO (EXERCISE) 06/2005 nl UMBIL HERNIA REPAIR (REDUCIBLE) AGE 5+YR N/A 08/24/2018 08/24/2018 umbilical hernia repair -- [facility] DR. Ronnie Gee Social History [...] normal. Lab data/imaging study review: Sigmoidoscopy at [facility] 04/23/2024 Sigmoidoscopy biopsy results 04/23/2024 at [facility] Upper endoscopy 04/23/2024 at [facility] Colonoscopy 05/07/2018 Findings: The perianal [...] results as stated above. Stool samples at [facility] revealing ETEC and norovirus infection- [...] Patient trying to reach without to his registered nurse hh case manager, Jacquelyn Juan but has been unsuccessful. Staff message sent. [...] time spent by another provider/QHP. GISSEL [facility] Gastroenterology, [facility] This chart was completed in part utilizing [employer] Speech Voice Recognition Software. Grammatical errors, random [...] BM after eating. documented in this encounter Miscellaneous Notes * Addendum Note - Shahzad Anand CRNP - 05/12/2024 3:31 PM EDTAddended by: SHAHZAD ANAND on: 05/12/2024 03:31 PM Modules accepted: Orders documented in this encounter Plan of Treatment Upcoming Encounters Date Type Department Care Team (Late st Contact Info) Description 05/17/2024 8:00 AM EDT Office Visit Pharmacy, [address] [place] [address] [facility] [address] [place] [address] 05/20/2024 11:45 AM EDT Imaging Radiology [facility] 1st Floor, [address] [address] 05/31/2024 10:00 AM EDT Laboratory Laboratory, [facility] [place] [address] [facility] [address] [place] [address] 06/01/2024 10:00 AM EDT Office Visit Cardiology, [facility] 132 [facility] [place] [address] William Snider DO [address] [place] [address] 06/09/2024 2:00 PM EDT Office Visit Gastroenterology, [facility] [address] [place] [address] Shahzad Anand CRNP [facility] [place] [address] 07/21/2024 11:40 AM EST Office Visit [place] [address] [address] [facility] [address] Nisa Goodrich PA-C [address] [facility], [place] [address] 09/06/2024 11:00 AM EST Office Visit [place] [address] [address] [facility] [address] Nisa Goodrich PA-C [address] [facility], [place] [address] 09/07/2024 10:22 AM EST Hospital Encounter OR [facility], Operating Room, [facility] - 4th Floor [address] [place] [address] [place] [address] Marciano Lopez MD [address] [place] [address] 09/07/2024 10:22 AM EST - 09/07/2024 10:58 AM EST Surgery OR GL, Operating Room, [facility] - 4th Floor [address] [place] [address] Marciano Lopez MD [address] [place] [address] COLONOSCOPY FLEXIBLE PROXIMAL DIAGNOSTIC 09/08/2024 7:40 AM EST Office Visit [facility] [address] [place] [phone] Alonso Daigle MD [address] [place] [address] 09/14/2024 8:45 AM EST Office Visit Orthopaedics Spine Surgery, [place] [address] [place] [address] Kleber Batres MD [address] [place] [address] Pending Results Name Type Priority Associated Diagnoses [...] 02/09/2021, Additional history exists GFR 05/12/2025 05/12/2024, 090 10/2023, 04/15/2024, Additional history exists Colonoscopy 05/07/2028 [...] filedocumented as of this encounter Results * BASIC METABOLIC PANEL (05/12/2024 1:50 PM EDT) BUN 18 6 - 20 mg/dL 05/12/2024 3:27 PM EDT [facility] Creatinine 1.0 0.6 - 1.2 mg/dL 05/12/2024 3:27 PM EDT [facility] [place] [facility] Estimated Glomerular Filtration Rate 79 >=60 mL/min 05/12/2024 3:27 PM EDT [facility] [place] [facility] Comment:eGFR is calculated b ased on the CKD-EPI 2020 equation. Sodium 139 135 - 146 mmol/L 05/12/2024 3:27 PM EDT [facility] [place] [facility]10 Potassium 4.2 3.5 - 5.1 mmol/L 05/12/2024 3:27 PM EDT [facility] [place] [facility]10 Chloride 101 98 - 107 mmol/L 05/12/2024 3:27 PM EDT [facility] [place] [facility] CO2 29 22 - 32 mmol/L 05/12/2024 3:27 PM EDT [facility] [place]10 Anion Gap 9 7 - 15 mmol/L 05/12/2024 3:27 PM EDT [facility] [place] [facility]10 Glucose 120 70 - 120 mg/dL 05/12/2024 3:27 PM EDT [facility] [place] [facility]10 Calcium 9.8 8.4 - 10.2 mg/dL 05/12/2024 3:27 PM EDT [facility] [place] Blood Venous blood specimen / Unknown Venipuncture / Unknown 05/12/2024 1:50 PM EDT 05/12/2024 1:50 PM EDT Shahzad CHAUHAN LAB BLOOD ORDER [facility] [place] [facility] [place] [address] documented in this encounter Visit Diagnoses Diagnosis BRBPR (bright [...] and were consensually agreed upon. Care Teams Tugboat Dispatcher Relationship Specialty Start Date End Date Nisa Goodrich PA-C [address] [facility] [place] [place] [address] PCP - General Physician Rose Grader 03/14/24 documented as of this encounter"
--- OUTSIDE RECORDS SUMMARY | 2024-06-04 05:54 | External Medical Summary | Summary of Care ---
Author Name Unknown Organization [facility] Address [address] [place] [address] Phone [phone] Care Team Providers Care Time Analysis Clerk Name Role Phone Nisa Goodrich PA-C Primary Care Provider [phone] Encounter Details Date Type Department Care Team (Latest Contact Info) Description 04/25/2024 8:55 PM EDT - 04/25/2024 8:59 PM EDT Hospital Encounter Radiology Film File [address] [place] [address] Discharge Disposition: Home - Self [...] mRNA, LNP-s, No Pre serve, 2-Dose Series ([employer]) 07/30/2021,11/30/2020,11/09/2020 COVID-19, MRNA-LNP, 23-24, P F, 30 MCG/0.3 mL, 12 YRS AND ABOVE, IM ([employer]Comirnat[employer]ell) 06/30/2023 Covid-19, Mrna, Lnp-s, Pf, B ivalent, 30 Mcg, IM, 12 yrs and above ([employer]) 06/20/2022 HEP A - Hepatitis A (Adult [...] 05/12/2024 1:00 PM EDT Office Visit Gastroenterology, [facility] [address] [place] [address] Kary Perez CRNP [address] [place] [address] 05/17/2024 8:00 AM EDT Office Visit Pharmacy, [facility] [address] [place] [address] [facility] [address] [place] [address] 06/01/2024 10:00 AM EDT Office Visit Cardiology, [facility] [address] [place] [address] William Snider DO [address] [place] [address] 07/01/2024 9:16 AM EDT Hospital Encounter OR [facility], Operating Room, [facility] - 4th Floor [address] [facility] [place] [address] Marciano Lopez MD [address] [place] [address] 07/01/2024 9:16 AM EDT - 07/01/2024 9:52 AM EDT Surgery OR [facility], Operating Room, [facility] - 4th Floor 400 [place] [phone] Marcinao Lopez MD [address] [place] [address] COLONOSCOPY FLEXIBLE PROXIMAL DIAGNOSTIC 07/21/2024 11:40 AM EST Office Visit [place] [address] [address] [facility] [phone] Nisa Goodrich PA-C [address] [facility] [address] 09/06/2024 11:00 AM EST Office Visit [place] [address] [address] [facility] [phone] Nisa Goodrich PA-C [address] [place] [facility] [place] [address] 09/08/2024 7:40 AM EST Office Visit [facility] [place] [address] [facility] [address] Alonso Daigle MD [address] [place] [address] 09/14/2024 8:45 AM EST Office Visit Orthopaedics Spine Surgery, [address] [place] [address] Kleber Batres MD [address] [place] [address] Scheduled Procedures Name Priority Associated Diagnoses Date/Ti [...] - CT (IMAGES ONLY, NO REPORT) Routine 04/25/2024 8:55 PM EDT documented in this encounter Results * RADIOLOGY EXAM - CT (IMAGES ONLY, NO REPORT) (04/25/2024 8:55 PM EDT) 04/25/2024 8:48 PM EDT Narrative Scheduling, Silent - 05/06/2024 5:05 PM EDT This is an imaging study not interpreted or resulted by a [facility] or [facility] contracted radiologist. Nisa Goodrich PA-C RAD CT documented in this encounter Advance Directives * Full Code (Latest Code Status on File) Date Activated Date Inactivated Comments 07/05/2019 10:32 AM 07/05/2019 4:23 PM This order reflects the patients wishes and were consensually agreed upon. Care Teams Time Analysis Clerk Relationship Specialty Start Date End Date Nisa Goodrich PA-C [address] [place] [address] PCP - General Physician Metal Trades Instructor 03/14/24 documented as of this encounter
--- OUTSIDE RECORDS SUMMARY | 2024-06-04 05:54 | External Medical Summary ---
Author Name Unknown Address Unknown Organization K01:[facility] [address] [place] [address] Laboratory Report Ordering Provider Test Date Status CHENG PIKE 05/12/2024 13:50:51 Final Observation Date Value Abnormality Reference (Units ) Status WBC, Total 05/12/2024 13:50:51 5.91 4.00-10.8 0 (K/uL) Final RBC 05/12/2024 13:50:51 4.51 4.50-5.25 (M/uL) Final Hemoglobin 05/12/2024 13:50:51 13.1 Below low normal 14 .0-16.8 (g/dL) Final Anemia reflex testing trigge rs on a HGB < 12.0 for Females and HGB < 13.0 for Males in accordance with the WHO Anemia Guidelines
Anemia reflex testing triggers on a HGB < 12.0 for Females and HGB < 13.0 for Males in accordance with the WHO Anemia Guidelines HCT 05/12/2024 13:50:51 39.2 Below low normal 40. 0-48.4 (%) Final MCV 05/12/2024 13:50:51 86.9 82.0-99.5 (fL) Final MCH 05/12/2024 13:50:51 29.0 27.0-34.0 (pg) Final MCHC 05/12/2024 13:50:51 33.4 32.0-36.0 (g/dL) Final RDW 05/12/2024 13:50:51 15.4 11.5-15.5 (%) Final Platelets 05/12/2024 13:50:51 271 140-400 (K /uL) Final MPV 05/12/2024 13:50:51 9.1 6.6-11.1 ( fL) Final Nucleated erythrocytes/100 leukocytes [Ratio] in Blood by Automated count 05/12/2024 13:50:51 0 <=0 (/100 WBCs) Final Performing Location [facility] [address] [facility] [address]
--- OUTSIDE RECORDS SUMMARY | 2024-06-04 05:54 | External Medical Summary | Summary of Care ---
Author Name Unknown Organization [facility] Address [address] [place] [address] Phone [phone] Care Team Providers Care Compress Machine Operator Name Role Phone Nisa Goodrich PA-C Primary Care Provider [phone] [phone] Encounter Details Date Type Department Care Team (Latest Contact Info) Description 04/25/2024 8:50 PM EDT - 04/25/2024 8:54 PM EDT Hospital Encounter Radiology Film File [address] [place] [address] Discharge Disposition: Home - Self [...] mRNA, LNP-s, No Pre serve, 2-Dose Series ([employer]) 07/30/2021,11/30/2020,11/09/2020 COVID-19, MRNA-LNP, 23-24, P F, 30 MCG/0.3 mL, 12 YRS AND ABOVE, IM ([employer]ir[employer]) 06/30/2023 Covid-19, Mrna, Lnp-s, Pf, B ivalent, 30 Mcg, IM, 12 yrs and above ([employer]) 06/20/2022 HEP A - Hepatitis A (Adult [...] Office Visit Gastroenterology, [facility] [address] [place] [address] Kary Perez CRNP [address] [place] [address] 05/17/2024 8:00 AM EDT Office Visit Pharmacy, [facility] [address] [place] [address] [facility] [address] [place] [address] 06/01/2024 10:00 AM EDT Office Visit Cardiology, [facility] [address] [place] [address] William Snider DO [address] [place] [address] 07/01/2024 9:16 AM EDT Hospital Encounter OR [facility], Operating Room, [facility] - 4th Floor [address] [facility] [place] [address] Marciano Lopez MD [address] [place] [address] 07/01/2024 9:16 AM EDT - 07/01/2024 9:52 AM EDT Surgery OR [facility], Operating Room, [facility] - 4th Floor 400 [place] [phone] Marciano Lopez MD [address] [place] [address] COLONOSCOPY FLEXIBLE PROXIMAL DIAGNOSTIC 07/21/2024 11:40 AM EST Office Visit [place] [address] [address] [facility] [phone] Nisa Goodrich PA-C [address] [facility] [address] 09/06/2024 11:00 AM EST Office Visit [place] [address] [address] [facility] [phone] Nisa Goodrich PA-C [address] [place] [address] 09/08/2024 7:40 AM EST [facility] [place] [address] [facility] [address] Alonso Daigle MD [address] [place] [address] 09/14/2024 8:45 AM EST Office Visit Orthopaedics Spine Surgery, [address] [place] [address] Kleber Batres MD [address] [place] [address] Scheduled Procedures Name Priority Associated Diagnoses Date/Ti [...] CT (IMAGES ONLY, NO REPORT) Routine 04/25/2024 8:50 PM EDT documented in this encounter Results * RADIOLOGY EXAM - CT (IMAGES ONLY, NO REPORT) (04/25/2024 8:50 PM EDT) 04/25/2024 8:48 PM EDT Narrative Scheduling, Silent - 05/06/2024 5:03 PM EDT This is an imaging study not interpreted or resulted by a [facility] or [facility] contracted radiologist. Nisa Goodrich PA-C RAD CT documented in this encounter Advance Directives * Full Code (Latest Code Status on File) Date Activated Date Inactivated Comments 07/05/2019 10:32 AM 07/05/2019 4:23 PM This order reflects the patients wishes and were consensually agreed upon. Care Teams Compress Machine Operator Relationship Specialty Start Date End Date Nisa Goodrich PA-C [address] [place] [address] PCP - General Physician Chancellor 03/14/24 documented as of this encounter
--- OUTSIDE RECORDS SUMMARY | 2024-06-04 05:54 | External Medical Summary | Summary of Care ---
Author Name Unknown Organization [facility] Address [address] [facility] [place] [address] Phone [phone] Care Team Providers Care Rn Registry Name Role Phone Nisa Goodrich PA-C Primary Care Provider [phone] [phone] Reason for Visit * Reason Comments Outpatient Testing Encounter Details Date Type Department Care Team (Late st Contact Info) Description 05/12/2024 2:00 PM EDT Laboratory Laboratory, [facility] [address] [facility] [place] [phone] [facility] [address] [place] [address] BRBPR (bright red blood per rectum); Internal [...] other meds.. 180 Packet 1 05/12/2024 Active documented as of this encounter [...] mRNA, LNP-s, No Pre serve, 2-Dose Series ([employer]) 07/30/2021,11/30/2020,11/09/2020 COVID-19, MRNA-LNP, 23-24, P F, 30 MCG/0.3 mL, 12 YRS AND ABOVE, IM ([employer]-Comirnat) 06/30/2023 Covid-19, Mrna, Lnp-s, Pf, B ivalent, 30 Mcg, IM, 12 yrs and above ([employer]) 06/20/2022 HEP A - Hepatitis A (Adult [...] 8:00 AM EDT Office Visit Pharmacy, [facility] [address] [facility] [place] [place] [address] [facility] [address] [facility] [place] [address] 05/20/2024 11:45 AM EDT Imaging Radiology [facility] 1st Floor, [place] [address] [facility] [place] [address] 05/31/2024 10:00 AM EDT Laboratory Laboratory, [place] [address] [facility] [place] [phone] [facility] [address] [facility] [place] [address] 06/01/2024 10:00 AM EDT Office Visit Cardiology, [facility] [address] [place] [address] William Snider DO [address] [place] [address] 06/09/2024 2:00 PM EDT Office Visit Gastroenterology, [facility] [address] [place] [address] Kary Perez CRNP [address] [place] [address] 07/21/2024 11:40 AM EST Office Visit [facility] [address] [facility] [place] [phone] Nisa Goodrich PA-C [address] [facility] [place] [address] 09/06/2024 11:00 AM EST Office Visit [facility] [address] [facility], [place] [phone] Nisa Goodrich PA-C [address] [place] [address] 09/07/2024 10:22 AM EST Hospital Encounter OR [facility], Operating Room, [facility] - 4th Floor [address] [facility] [place] [address] Marciano Lopez MD [address] [place] [address] 09/07/2024 10:22 AM EST - 09/07/2024 10:58 AM EST Surgery [facility], Operating Room, [facility] - 4th Floor [address] [facility] [place] [address] Marciano Lopez MD [address] [place] [address] COLONOSCOPY FLEXIBLE PROXIMAL DIAGNOSTIC 09/08/2024 7:40 AM EST Office Visit [facility] [address] [facility] [phone] Alonso Daigle MD [address] [place] [address] 09/14/2024 8:45 AM EST Office Visit Orthopaedics Spine Surgery, [place] [address] [place] [address] Kleber Batres MD [address] [place] [address] Pending Results Name Type Priority Associated Diagnoses [...] disease without esophagitis 05/12/2024 1:50 PM EDT ANEMIA CBC Lab Routine BRBPR (bright red blood per rectum) Internal hemorrhoids Infectious colitis Diarrhea of presumed infectious origin Gastroesophageal reflux disease without esophagitis 05/12/2024 1:50 PM EDT DIFFERENTIAL, AUTOMATED Lab Routine BRBPR (bright red blood per rectum) Internal hemorrhoids Infectious colitis Diarrhea of presumed infectious origin Gastroesophageal reflux disease without esophagitis 05/12/2024 1:50 PM EDT ANEMIA REFLEX CHEMISTRY HOLD Lab Routine BRBPR (bright red blood per rectum) Internal hemorrhoids Infectious colitis Diarrhea of presumed infectious origin Gastroesophageal reflux disease without esophagitis 05/12/2024 1:50 PM EDT Scheduled Procedures Name Priority Associated [...] 090 05/2022, 02/09/2021, Additional history exists GFR 05/04/2025 05/04/2024, 04/01, 03/08/2024, Additional history exists Colonoscopy 05/07/2028 05/07/2018, 090 01/2018, 01/13/2007 DTap/Tdap [...] and were consensually agreed upon. Care Teams Rn Registry Relationship Specialty Start Date End Date Nisa Goodrich PA-C [address] [place] [address] PCP - General Physician Set And Exhibit Designer 03/14/24 documented as of this encounter
--- OUTSIDE RECORDS SUMMARY | 2024-06-04 05:55 | External Medical Summary | Summary of Care ---
Author Name Unknown Organization [facility] Address [address] [place] [address] Phone [phone] Care Team Providers Care Activities Counselor Name Role Phone Alonso Daigle MD Primary Care Provider +1- [phone] Encounter Details Date Type Department Care Team (Latest Contact Info) Description 04/09/2019 11:45 AM EDT - 04/09/2019 11:59 PM EDT Hospital Encounter Radiology Film File [address] [place], [place] [id number] Discharge Disposition: Home - Self Care Allergies No known active allergiesdocumented as of this encounter (statuses as of 05/07/2024) Medications Medication Sig Dispensed Refills Start Date End Date Status ASPIRIN 81 MG OR TABS one tab by mouth daily 0 0 11/23/2004 Active ONE DAILY MENS PO TABS 1 daily 0 03/24/2006 Ac tive FISH OIL 1000 MG PO CPDR 1 Daily 1 Cap 0 11/20/2011 Active Magnesium 250 MG Tablet Take 1 Tablet by mouth in the morning. 10/05/2018 Active Potassium Gluconate 550 MG TABS Take by mouth. 10/05/2018 Active documented as of this encounter (statuses [...] 05/07/2024) Immunizations Name Administration Dates Next Due HEP A - Hepatitis A (Adult > 18 yrs) 02/16/2010, 09/15/2009 Hepatitis B, 20+ yrs 05/15/2016,12/13/2015,11/07 Pneumococcal Polysaccharide PPV23 (Pneumovax) 09/12/2011 Seasonal Influenza, PF, 6 M & above, IM , (FluLaval or Fluzone) 06/11/2018 Seasonal Influenza, Quadriva lent, No Preserve, IM 05/20/2017,05/15/2016,06/09/2015 06/09/2016 Seasonal Influenza, Trivalen t, (IIV3), with Preserv, (Fluzone) 06/22/2014,06/09/2013,06/26/2012,06/01,05/29/2009 TDAP (age 10 and older)(Boostrix) 04/09/2019 TDAP, Age 7 and older, IM (Adacel) 04/05/2011, documented as of this encounter Social History [...] file Not on file Not on file COVID-19 Exposure Response Date Recorded In the last month, have you been in contact with someone who was confirmed or suspected to have Coronavirus / COVID-19? No / Unsure 05/05/2020 7:04 AM EDT documented as of this encounter Plan of Treatment Upcoming Encounters Date Type Department Care Team (Late st Contact Info) Description 05/12/2024 1:00 PM EDT Office Visit Gastroenterology, [facility] [address] [place] [address] Kary Perez CRNP [address] [place] [address] 05/17/2024 8:00 AM EDT Office Visit Pharmacy, [facility] [address] [place] [address] [email or web address] [address] [place] [address] 06/01/2024 10:00 AM EDT Office Visit Cardiology, [facility] [address] [place] [address] William Snider DO [address] [place] [address] 07/01/2024 9:16 AM EDT Hospital Encounter OR [facility], Operating Room, [facility] - 4th Floor [address] [place] [address] Marciano Lopez MD [address] [place] [address] 07/01/2024 9:16 AM EDT - 07/01/2024 9:52 AM EDT Surgery OR GL, Operating Room, [facility] - 4th Floor [address] [place] [address] Marciano Lopez MD [address] [place] [address] COLONOSCOPY FLEXIBLE PROXIMAL DIAGNOSTIC 07/21/2024 11:40 AM EST Office Visit [place] [address] [facility], [place] [address] Nisa Goodrich PA-C [address] [facility], [place] [address] 09/06/2024 11:00 AM EST Office Visit [place] [address] [facility], [place] [address] Nisa Goodrich PA-C [address] [facility], [place] [address] 09/08/2024 7:40 AM EST Office Visit [place] [address] [facility], [place] [address] Alonso Daigle MD [address] [facility], [place] [address] 09/14/2024 8:45 AM EST Office Visit Orthopaedics Spine Surgery, [facility] Anaya Garcia [address] [place] [address] Kleber Batres MD [address] [place] [address] Scheduled Procedures Name Priority Associated Diagnoses Date/Ti [...] Wellness Visit 2022 COVID-19 Vaccine (2022- season) 2024 06/30/2023, 06/30/2023, 06/20/2022, Additional history [...] - CT (IMAGES ONLY, NO REPORT) Routine 04/09/2019 11:45 AM EDT documented in this encounter Results * RADIOLOGY EXAM - CT (IMAGES ONLY, NO REPORT) (04/09/2019 11:45 AM EDT) 04/09/2019 11:4 4 AM EDT Narrative Scheduling, Silent - 05/06/2024 5:09 PM EDT This is an imaging study not interpreted or resulted by a [facility] or [facility] contracted radiologist. Nisa Goodrich PA-C RAD CT documented in this encounter Advance Directives * Full Code (Latest Code Status on File) Date Activated Date Inactivated Comments 07/05/2019 10:32 AM 07/05/2019 4:23 PM This order reflects the patients wishes and were consensually agreed upon. Care Teams Activities Counselor Relationship Specialty Start Date End Date Alonso Daigle MD [address] [place] [address] PCP - General 08/28/01 03/13/24 documented as of this encounter
--- OUTSIDE RECORDS SUMMARY | 2024-06-04 05:55 | External Medical Summary | Summary of Care ---
Author Name Unknown Organization [facility] Address [address] [facility] [address] Phone [phone] Care Team Providers Care Recruiting Operations Consultant Name Role Phone Nisa Goodrich PA-C Primary Care Provider +1 -[phone] Encounter Details Date Type Department Care Team (Late st Contact Info) Description 04/25/2024 Orders Only [facility] [address] [place] [address] Nisa Goodrich PA-C [address] [place] [address] Allergies No known active allergiesdocumented as of this encounter (statuses as of 05/06/2024) Medications Medication Sig Dispensed Refills Start Date [...] as of this encounter (statuses as of 05/06/2024) Active Problems Problem Noted Date Diagnosed Date [...] as of this encounter (statuses as of 05/06/2024) Resolved Problems Problem Noted Date Diagnosed Date [...] as of this encounter (statuses as of 05/06/2024) Immunizations Name Administration Dates Next Due COVID-19 mRNA, LNP-s, No Pre serve, 2-Dose Series ([employer]) 07/30/2021,11/30/2020,11/09/2020 COVID-19, MRNA-LNP, 23-24, P F, 30 MCG/0.3 mL, 12 YRS AND ABOVE, IM ([employer]) 06/30/2023 Covid-19, Mrna, Lnp-s, Pf, B ivalent, 30 Mcg, IM, 12 yrs and above ([employer]) 06/20/2022 HEP A - Hepatitis A (Adult [...] 05/12/2024 1:00 PM EDT Office Visit Gastroenterology, [facility] [address] [place] [address] Kary Perez CRNP [address] [place] [address] 05/17/2024 8:00 AM EDT Office Visit Pharmacy, [facility] [address] [place] [address] [facility] [address] [place] [address] 06/01/2024 10:00 AM EDT Office Visit Cardiology, [facility] [address] [place] [address] William Snider, DO [address] [place] [address] 07/01/2024 9:16 AM EDT Hospital Encounter OR [facility], Operating Room, [facility] - 4th Floor [address] [place] [address] Marciano Lopez MD [address] [place] [address] 07/01/2024 9:16 AM EDT - 07/01/2024 9:52 AM EDT Surgery OR [facility], Operating Room, [facility] - 4th Floor [address] [place] [address] Marciano Lopez MD [address] [place] [address] COLONOSCOPY FLEXIBLE PROXIMAL DIAGNOSTIC 07/21/2024 11:40 AM EST Office Visit [facility] [address] [facility] [address] Nisa Goodrich PA-C [address] [place] [address] 09/06/2024 11:00 AM EST Office Visit [facility] [address] [facility] [phone] Nisa Goodrich PA-C [address] [facility] [address] 09/08/2024 7:40 AM EST Office Visit [facility] [place] [address] [facility] [phone] Alonso Daigle MD [address] [facility] [address] 09/14/2024 8:45 AM EST Office Visit Orthopaedics Spine Surgery, [facility] [address] [place] [address] Kleber Batres MD [address] [place] [address] Scheduled Procedures Name Priority Associated Diagnoses Date/Ti [...] interpreted or resulted by a [facility] or [facility] contracted radiologist. Nisa Goodrich PA-C RAD MRI-MRA documented in this encounter Advance Directives * Full Code (Latest Code Status on File) Date Activated Date Inactivated Comments 07/05/2019 10:32 AM 07/05/2019 4:23 PM This order reflects the patients wishes and were consensually agreed upon. Care Teams Recruiting Operations Consultant Relationship Specialty Start Date End Date Nisa Goodrich PA-C [address] [place] [address] PCP - General Physician Adventure Challenge Instructor 03/14/24 documented as of this encounter
--- OUTSIDE RECORDS SUMMARY | 2024-06-04 05:55 | External Medical Summary | Summary of Care ---
Author Name Unknown Organization [facility] Address [address] [facility] [address] Phone [phone] Care Team Providers Care Train System Operator Name Role Phone Nisa Goodrich PA-C Primary Care Provider +1 -[phone] Encounter Details Date Type Department Care Team (Late st Contact Info) Description 04/25/2024 Orders Only [facility] [address] [place] [address] Nisa Goodrich PA-C [address] [place] [address] Allergies No known active allergiesdocumented [...] mRNA, LNP-s, No Pre serve, 2-Dose Series ([employer]) 07/30/2021,11/30/2020,11/09/2020 COVID-19, MRNA-LNP, 23-24, P F, 30 MCG/0.3 mL, 12 YRS AND ABOVE, IM ([employer]) 06/30/2023 Covid-19, Mrna, Lnp-s, Pf, B ivalent, 30 Mcg, IM, 12 yrs and above ([employer]) 06/20/2022 HEP A - Hepatitis A (Adult [...] 05/12/2024 1:00 PM EDT Office Visit Gastroenterology, [facility] [address] [place] [address] Kary Perez CRNP [address] [place] [address] 05/17/2024 8:00 AM EDT Office Visit Pharmacy, [facility] [address] [place] [address] [facility] [address] [place] [address] 06/01/2024 10:00 AM EDT Office Visit Cardiology, [facility] [address] [place] [address] William Snider, DO [address] [place] [address] 07/01/2024 9:16 AM EDT Hospital Encounter OR [facility], Operating Room, [facility] - 4th Floor [address] [place] [address] Marciano Lopez MD [address] [place] [address] 07/01/2024 9:16 AM EDT - 07/01/2024 9:52 AM EDT Surgery OR [facility], Operating Room, [facility] - 4th Floor [address] [place] [address] Marciano Lopez MD [address] [place] [address] COLONOSCOPY FLEXIBLE PROXIMAL DIAGNOSTIC 07/21/2024 11:40 AM EST Office Visit [facility] [address] [facility] [address] Nisa Goodrich PA-C [address] [place] [address] 09/06/2024 11:00 AM EST Office Visit [facility] [address] [facility] [phone] Nisa Goodrich PA-C [address] [facility] [phone] 09/08/2024 7:40 AM EST Office Visit [facility] [place] [address] [facility] [phone] Alonso Daigle MD [address] [facility] [address] 09/14/2024 8:45 AM EST Office Visit Orthopaedics Spine Surgery, [facility] [address] [place] [address] Kleber Batres MD [address] [place] [address] Scheduled Procedures Name Priority Associated Diagnoses Date/Ti [...] interpreted or resulted by a [facility] or [facility] radiologist. Nisa Goodrich PA-C RAD CT documented in this encounter Advance Directives * Full Code (Latest Code Status on File) Date Activated Date Inactivated Comments 07/05/2019 10:32 AM 07/05/2019 4:23 PM This order reflects the patients wishes and were consensually agreed upon. Care Teams Train System Operator Relationship Specialty Start Date End Date Nisa Goodrich PA-C [address] [place] [address] PCP - General Physician Geospatial Image Analyst 03/14/24 documented as of this encounter
--- OUTSIDE RECORDS SUMMARY | 2024-06-04 05:55 | External Medical Summary | Summary of Care ---
Author Name Unknown Organization [facility] Address [address] [facility] [address] Phone [phone] Care Team Providers Care Gas Station Manager Name Role Phone Nisa Goodrich PA-C Primary Care Provider +1 -[phone] Encounter Details Date Type Department Care Team (Late st Contact Info) Description 04/25/2024 Orders Only [facility] [address] [place] [address] Nisa Goodrich PA-C [address] [place] [address] Allergies No known active allergiesdocumented [...] mRNA, LNP-s, No Pre serve, 2-Dose Series ([employer]) 07/30/2021,11/30/2020,11/09/2020 COVID-19, MRNA-LNP, 23-24, P F, 30 MCG/0.3 mL, 12 YRS AND ABOVE, IM ([employer]) 06/30/2023 Covid-19, Mrna, Lnp-s, Pf, B ivalent, 30 Mcg, IM, 12 yrs and above ([employer]) 06/20/2022 HEP A - Hepatitis A (Adult [...] 05/12/2024 1:00 PM EDT Office Visit Gastroenterology, [facility] [address] [place] [address] Kary Perez CRNP [address] [place] [address] 05/17/2024 8:00 AM EDT Office Visit Pharmacy, [facility] [address] [place] [address] [facility] [address] [place] [address] 06/01/2024 10:00 AM EDT Office Visit Cardiology, [facility] [address] [place] [address] William Snider, DO [address] [place] [address] 07/01/2024 9:16 AM EDT Hospital Encounter OR [facility], Operating Room, [facility] - 4th Floor [address] [place] [address] Marciano Lopez MD [address] [place] [address] 07/01/2024 9:16 AM EDT - 07/01/2024 9:52 AM EDT Surgery OR [facility], Operating Room, [facility] - 4th Floor [address] [place] [address] Marciano Lopez MD [address] [place] [address] COLONOSCOPY FLEXIBLE PROXIMAL DIAGNOSTIC 07/21/2024 11:40 AM EST Office Visit [facility] [address] [facility] [address] Nisa Goodrich PA-C [address] [place] [address] 09/06/2024 11:00 AM EST Office Visit [facility] [address] [facility] [phone] Nisa Goodrich PA-C [address] [facility] [phone] 09/08/2024 7:40 AM EST Office Visit [facility] [place] [address] [facility] [phone] Alonso Daigle MD [address] [facility] [address] 09/14/2024 8:45 AM EST Office Visit Orthopaedics Spine Surgery, [facility] [address] [place] [address] Kleber Batres MD [address] [place] [address] Scheduled Procedures Name Priority Associated Diagnoses Date/Ti [...] CT (IMAGES ONLY, NO REPORT) Routine 04/25/2024 9:00 PM EDT documented in this encounter Results * RADIOLOGY EXAM - CT (IMAGES ONLY, NO REPORT) (04/25/2024 9:00 PM EDT) 04/25/2024 8:48 PM EDT Narrative Scheduling, Silent - 05/06/2024 5:07 PM EDT This is an imaging study not interpreted or resulted by a [facility] or [facility] contracted radiologist. Nisa Goodrich PA-C RAD CT documented in this encounter Advance Directives * Full Code (Latest Code Status on File) Date Activated Date Inactivated Comments 07/05/2019 10:32 AM 07/05/2019 4:23 PM This order reflects the patients wishes and were consensually agreed upon. Care Teams Gas Station Manager Relationship Specialty Start Date End Date Nisa Goodrich PA-C [address] [place] [address] PCP - General Physician Sales Planning Manager 03/14/24 documented as of this encounter
--- OUTSIDE RECORDS SUMMARY | 2024-06-04 05:55 | External Medical Summary | Summary of Care ---
Author Name Unknown Organization [facility] Address [address] [place] [address] Phone [phone] Care Team Providers Care Yard Supervisor Cotton Gin Name Role Phone Nisa Goodrich PA-C Primary Care Provider +1 -[phone] Encounter Details Date Type Department Care Team (Latest Contact Info) Description 04/25/2024 9:00 PM EDT - 04/25/2024 11:19 PM EDT Hospital Encounter Radiology Film File [address] [place] [address] Discharge Disposition: Home - Self [...] mRNA, LNP-s, No Pre serve, 2-Dose Series ([employer]) 07/30/2021,11/30/2020,11/09/2020 COVID-19, MRNA-LNP, 23-24, P F, 30 MCG/0.3 mL, 12 YRS AND ABOVE, IM ([employer]) 06/30/2023 Covid-19, Mrna, Lnp-s, Pf, B ivalent, 30 Mcg, IM, 12 yrs and above ([employer]) 06/20/2022 HEP A - Hepatitis A (Adult [...] 05/12/2024 1:00 PM EDT Office Visit Gastroenterology, [facility] [address] [place] [address] Kary Perez CRNP [address] [place] [address] 05/17/2024 8:00 AM EDT Office Visit Pharmacy, [facility] [address] [place] [address] [facility] [address] [place] [address] 06/01/2024 10:00 AM EDT Office Visit Cardiology, [facility] [address] [place] [address] William Snider DO [address] [place] [address] 07/01/2024 9:16 AM EDT Hospital Encounter OR [facility], Operating Room, [facility] - 4th Floor [address] [facility] [place] [address] Marciano Lopez MD [address] [place] [address] 07/01/2024 9:16 AM EDT - 07/01/2024 9:52 AM EDT Surgery OR [facility], Operating Room, [facility] - 4th Floor [address] [place] [phone] Marciano Lopez MD [address] [place] [address] COLONOSCOPY FLEXIBLE PROXIMAL DIAGNOSTIC 07/21/2024 11:40 AM EST Office Visit [place] [address] [facility] [phone] Nisa Goodrich PA-C [address] [facility] [address] 09/06/2024 11:00 AM EST Office Visit [place] [address] [facility] [phone] Nisa Goodrich PA-C [address] [place] [facility] [place] [address] 09/08/2024 7:40 AM EST Office Visit [facility] [place] [address] [facility] [address] Alonso Daigle MD [address] [place] [address] 09/14/2024 8:45 AM EST Office Visit [facility]opaedics Spine Surgery, [facility] [address] [place] [address] Kleber Batres MD [address] [place] [address] Scheduled Procedures Name Priority Associated Diagnoses Date/Ti [...] interpreted or resulted by a [facility] or [employer] contracted radiologist. Nisa Goodrich PA-C RAD CT documented in this encounter Advance Directives * Full Code (Latest Code Status on File) Date Activated Date Inactivated Comments 07/05/2019 10:32 AM 07/05/2019 4:23 PM This order reflects the patients wishes and were consensually agreed upon. Care Teams Yard Supervisor Cotton Gin Relationship Specialty Start Date End Date Nisa Goodrich PA-C [address] [place] [facility] [address] PCP - General Physician Brokerage Clerk 03/14/24 documented as of this encounter
--- OUTSIDE RECORDS SUMMARY | 2024-06-04 05:56 | External Medical Summary | Summary of Care ---
Author Name Unknown Organization [facility] Address [address] [facility] [place] [address] Phone [phone] Care Team Providers Care Boiler Reliner Name Role Phone Nisa Goodrich PA-C Primary Care Provider +1 -[phone] Encounter Details Date Type Department Care Team (Late st Contact Info) Description 05/01/2024 Orders Only PATIENT PORTAL DO NOT DELETE THIS DEPT USED BY [place] [id number] Allergies No known active allergiesdocumented as of this encounter (statuses as of 05/01/2024) Medications Medication Sig Dispensed Refills Start Date [...] as of this encounter (statuses as of 05/01/2024) Active Problems Problem Noted Date Diagnosed Date [...] as of this encounter (statuses as of 05/01/2024) Resolved Problems Problem Noted Date Diagnosed Date [...] as of this encounter (statuses as of 05/01/2024) Immunizations Name Administration Dates Next Due COVID-19 mRNA, LNP-s, No Pre serve, 2-Dose Series ([employer]) 07/30/2021,11/30/2020,11/09/2020 COVID-19, MRNA-LNP, 23-24, P F, 30 MCG/0.3 mL, 12 YRS AND ABOVE, IM ([employer]) 06/30/2023 Covid-19, Mrna, Lnp-s, Pf, B ivalent, 30 Mcg, IM, 12 yrs and above ([employer]) 06/20/2022 HEP A - Hepatitis A (Adult [...] 05/12/2024 1:00 PM EDT Office Visit Gastroenterology, [facility] [address] [place] [address] Kary Perez CRNP [address] [place] [address] 05/17/2024 8:00 AM EDT Office Visit Pharmacy, [facility] [address] [place] [address] [facility] [address] [place] [address] 06/01/2024 10:00 AM EDT Office Visit Cardiology, [facility] [address] [place] [address] William Snider, DO [address] [place] [address] 07/01/2024 9:16 AM EDT Hospital Encounter OR [facility], Operating Room, [facility] - 4th Floor [address] [place] [address] Marciano Lopez MD [address] [place] [address] 07/01/2024 9:16 AM EDT - 07/01/2024 9:52 AM EDT Surgery OR [facility], Operating Room, [facility] - 4th Floor [address] [place] [phone] Marciano Lopez MD [address] [place] [address] COLONOSCOPY FLEXIBLE PROXIMAL DIAGNOSTIC 07/21/2024 11:40 AM EST Office Visit [place] [address] [address] [facility] [phone] Nisa Goodrich PA-C [address] [facility] [address] 09/06/2024 11:00 AM EST Office Visit [place] [address] [address] [facility] [phone] Nisa Goodrich PA-C [address] [facility] [address] 09/08/2024 7:40 AM EST Office Visit [facility] [address] [facility] [phone] Alonso Daigle MD [address] [facility] [address] 09/14/2024 8:45 AM EST Office Visit [facility] Sp[facility], [facility] [address] [place] [address] Kleber Batres MD [address] [place] [address] Scheduled Procedures Name Priority Associated Diagnoses Date/Ti [...] and were consensually agreed upon. Care Teams Boiler Reliner Relationship Specialty Start Date End Date Nisa Goodrich PA-C [address] [place] [address] PCP - General Physician Rental Manager 03/14/24 documented as of this encounter
--- OUTSIDE RECORDS SUMMARY | 2024-06-04 05:56 | External Medical Summary ---
Author Name Unknown Address Unknown Organization [facility] [place] [address] [place] [address] Laboratory Report Ordering Provider Test Date Status ERICK ADAMS 05/04/2024 10:51:49 Final Observation Date Value Abnormality Reference (Units ) Status SYNC LEUKOCYTES IN BLOOD BY AUTOMATED COUNT 05/04/2024 10:51:49 6.21 4.00-10.80 (K/uL) Final Segs 05/04/2024 10:51:49 57.1 40.0-75.0 (%) Final Lymphs % 05/04/2024 10:51:49 23.0 18.0-42.0 (%) Final Monos 05/04/2024 10:51:49 14.8 Above high normal 1.0-11.0 (%) Final Eosinophils 05/04/2024 10:51:49 4.5 0.0-6.0 (%) Final Basos 05/04/2024 10:51:49 0.6 0.0-2.0 (%) Final Absolute Segs 05/04/2024 10:51:49 3.54 1.80-7.70 (K/uL) Final Lymphs, absolute 05/04/2024 10:51:49 1.43 1.00-4.80 (K/ul) Final Monos, Abs 05/04/2024 10:51:49 0.92 0.00-1.10 (K/uL) Final Eos, Abs 05/04/2024 10:51:49 0.28 0.00-0.70 (K/uL) Final Basos, Abs 05/04/2024 10:51:49 0.04 0.00-0.20 (K/uL) Final Performing Location [facility] [address] [place] [address]
--- OUTSIDE RECORDS SUMMARY | 2024-06-04 05:56 | External Medical Summary | Summary of Care ---
Author Name Unknown Organization [facility] Address [address] [facility] [address] Phone [phone] Care Team Providers Care Data Reduction Technician Name Role Phone Nisa Goodrich PA-C Primary Care Provider +1 [phone] Encounter Details Date Type Department Care Team (Late st Contact Info) Description 04/25/2024 Orders Only [facility] [address] [place] [address] Nisa Goodrich PA-C [address] [place] [address] Allergies No known active allergiesdocumented [...] mRNA, LNP-s, No Pre serve, 2-Dose Series (Genterpret) 07/30/2021,11/30/2020,11/09/2020 COVID-19, MRNA-LNP, 23-24, P F, 30 MCG/0.3 mL, 12 YRS AND ABOVE, IM (Gradeable-[facility]) 06/30/2023 Covid-19, Mrna, Lnp-s, Pf, B ivalent, 30 Mcg, IM, 12 yrs and above (Genterpret) 06/20/2022 HEP A - Hepatitis A (Adult [...] 05/12/2024 1:00 PM EDT Office Visit Gastroenterology, [facility] [address] [place] [address] Kary Perez CRNP [address] [place] [address] 05/17/2024 8:00 AM EDT Office Visit Pharmacy, [facility] [address] [place] [address] [facility] [address] [place] [address] 06/01/2024 10:00 AM EDT Office Visit Cardiology, [facility] [address] [place] [address] William Snider, DO [address] [place] [address] 07/01/2024 9:16 AM EDT Hospital Encounter OR [facility], Operating Room, [facility] - 4th Floor [address] [place] [address] Marciano Lopez MD [address] [place] [address] 07/01/2024 9:16 AM EDT - 07/01/2024 9:52 AM EDT Surgery OR [facility], Operating Room, [facility] - 4th Floor [address] [place] [address] Marciano Lopez MD [address] [place] [address] COLONOSCOPY FLEXIBLE PROXIMAL DIAGNOSTIC 07/21/2024 11:40 AM EST [facility] [address] [facility] [address] Nisa Goodrich PA-C [address] [place] [address] 09/06/2024 11:00 AM EST [facility] [address] [facility] [phone] Nisa Good[facility] PA-C [address] [facility] [phone] 09/08/2024 7:40 AM EST Office Visit [facility] [address] [facility] [phone] Alonso Daigle MD [address] [facility] [address] 09/14/2024 8:45 AM EST Office Visit Orthopaedics Spine Surgery, [facility] [address] [place] [address] Kleber Batres MD [address] [place] [address] Scheduled Procedures Name Priority Associated Diagnoses Date/Ti [...] interpreted or resulted by a [facility]. Nisa Goodrich PA-C RAD CT documented in this encounter Advance Directives * Full Code (Latest Code Status on File) Date Activated Date Inactivated Comments 07/05/2019 10:32 AM 07/05/2019 4:23 PM This order reflects the patients wishes and were consensually agreed upon. Care Teams Data Reduction Technician Relationship Specialty Start Date End Date Nisa Goodrich PA-C [address] [place] [address] PCP - General Physician Cooker Cleaner 03/14/24 documented as of this encounter
--- OUTSIDE RECORDS SUMMARY | 2024-06-04 05:56 | External Medical Summary ---
Author Name Unknown Address Unknown Organization [facility] [address] [place] [address] Laboratory Report Ordering Provider Test Date Status ERICK ADAMS 05/04/2024 10:51:49 Final Observation Date Value Abnormality Reference (Units ) Status WBC, Total 05/04/2024 10:51:49 6.21 4.00-10.8 0 (K/uL) Final RBC 05/04/2024 10:51:49 4.30 4.50-5.25 (M/uL) Final Hemoglobin 05/04/2024 10:51:49 12.4 Below low normal 14 .0-16.8 (g/dL) Final HCT 05/04/2024 10:51:49 37.1 Below low normal 40. 0-48.4 (%) Final MCV 05/04/2024 10:51:49 86.3 82.0-99.5 (fL) Final MCH 05/04/2024 10:51:49 28.8 27.0-34.0 (pg) Final MCHC 05/04/2024 10:51:49 33.4 32.0-36.0 (g/dL) Final RDW 05/04/2024 10:51:49 15.3 11.5-15.5 (%) Final Platelets 05/04/2024 10:51:49 282 140-400 (K /uL) Final MPV 05/04/2024 10:51:49 9.0 6.6-11.1 ( fL) Final Performing Location [facility]ORY [facility] [address] [place] [address]
--- OUTSIDE RECORDS SUMMARY | 2024-06-04 05:56 | External Medical Summary | Summary of Care ---
Author Name Unknown Organization [facility] Address [address] [facility] [place] [address] Phone [phone] Care Team Providers Care Chinese Herbalist Name Role Phone Nisa Goodrich PA-C Primary Care Provider [phone] Reason for Visit * Reason Comments Outpatient Testing Encounter Details Date Type Department Care Team (Late st Contact Info) Description 05/04/2024 10:50 AM EDT Laboratory Laboratory, [facility] [address] [facility] [place] [phone] [facility] [address] [facility] [address] Blurred vision; Dizziness Allergies No known active allergiesdocumented as of this encounter (statuses as of 05/04/2024) Medications Medication Sig Dispensed Refills Start Date [...] as of this encounter (statuses as of 05/04/2024) Active Problems Problem Noted Date Diagnosed Date [...] as of this encounter (statuses as of 05/04/2024) Resolved Problems Problem Noted Date Diagnosed Date [...] as of this encounter (statuses as of 05/04/2024) Immunizations Name Administration Dates Next Due COVID-19 mRNA, LNP-s, No Pre serve, 2-Dose Series (Parudi) 07/30/2021,11/30/2020,11/09/2020 COVID-19, MRNA-LNP, 23-24, P F, 30 MCG/0.3 mL, 12 YRS AND ABOVE, IM (BeMyGuest-Comirnaty) 06/30/2023 Covid-19, Mrna, Lnp-s, Pf, B ivalent, [...] Care Team (Late st Contact Info) Description 05/04/2024 12:40 PM EDT Immunization Ancillary [facility] [place] [address] [place], [facility] [address] [place] [address] Arrived 05/12/2024 1:00 PM EDT Office Visit Gastroenterology, [facility] [address] [place] [address] Kary Perez CRNP [address] [place] [address] 05/17/2024 8:00 AM EDT Office Visit Pharmacy, [facility] [address] [facility] [place] [address] [facility] [address] [place] [address] 06/01/2024 10:00 AM EDT Office Visit Cardiology, [facility] [address] [place] [address] William Snider DO [address] [place] [address] 07/01/2024 9:16 AM EDT Hospital Encounter OR [facility], Operating Room, [facility] - 4th Floor [address] [place] [phone] Marciano Lopez MD [address] [place] [address] 07/01/2024 9:16 AM EDT - 07/01/2024 9:52 AM EDT Surgery OR [facility], Operating Room, [facility] - 4th Floor [address] [place] [phone] Marciano Lopez MD [address] [place] [address] COLONOSCOPY FLEXIBLE PROXIMAL DIAGNOSTIC 07/21/2024 11:40 AM EST [facility] [address] [place] [facility] [phone] Nisa Goodrich PA-C [address] [place] [facility] [place] [address] 09/06/2024 11:00 AM EST Office Visit [facility] [place] [address] [place] [facility] [address] Nisa Goodrich PA-C [address] [place] [facility] [place] [address] 09/08/2024 7:40 AM EST Office Visit [facility] [place] [address] [place] [facility] [phone] Alonso Daigle MD [address] [facility], [place] [phone] 09/14/2024 8:45 AM EST Office Visit Orthopaedics Spine Surgery, [facility] [address] [place] [address] Kleber Batres MD [address] [place] [address] Pending Results Name Type Priority Associated Diagnoses Date /Time CBC WITH WBC DIFFERENTIAL Lab Routine Blurred vision Dizziness 05/04/2024 10:51 AM EDT COMPREHENSIVE METABOLIC PANEL Lab Routine Blurred vision Dizziness 05/04/2024 10:51 AM EDT CBC Lab Routine Blurred vision Dizziness 05/04/2024 10:51 AM EDT DIFFERENTIAL, AUTOMATED Lab Routine Blurred vision Dizziness 05/04/2024 10:51 AM EDT Scheduled Procedures Name Priority Associated [...] 2022 COVID-19 Vaccine ( season) 2024 06/30/2023, 06/20/2022, 07/30/2021, Additional history exists Influenza Vaccine (FLU shot) (#1) 2024 06/30/2023, 05/10/2022, 07/20/2021, Additional history exists HbA1c 08/17/2024 02/16/2024, 05/03/2024, 10/08/2023, Additional history exists Diabetic Foot Exam 09/03/2024 09/03/2023, 0 02/09/2021, 10/05/2018, Additional history exists Diabetic Eye Exam 10/07/2024 10/07/2023, 09/08/2020 Albumin/Creatinine Ratio 10/08/20242 024, 05/10/2022, 09/24/2021, Additional history exists B-12 10/08/2024 10/08/2023, 05/2022, 02/09/2021, Additional history exists GFR 04/15/2025 04/15/2024, 04/2024, 10/08/2023, Additional history exists Colonoscopy 05/07/2028 05/07/2018, 01/2018, [...] as of this encounter Visit Diagnoses Diagnosis Blurred vision Other specified visual disturbances Dizziness Dizziness and giddiness Blood in stool documented in this encounter Advance Directives * Full Code (Latest Code Status on File) Date Activated Date Inactivated Comments 07/05/2019 10:32 AM 07/05/2019 4:23 PM This order reflects the patients wishes and were consensually agreed upon. Care Teams Chinese Herbalist Relationship Specialty Start Date End Date Nisa Goodrich PA-C [address] [facility] [place] [address] PCP - General Physician Vp Transportation 03/14/24 documented as of this encounter
--- OUTSIDE RECORDS SUMMARY | 2024-06-04 05:56 | External Medical Summary | Summary of Care ---
Author Name Unknown Organization [facility] Address [address] [place] [address] Phone [phone] Care Team Providers Care Cigarette Seller Name Role Phone Nisa Goodrich PA-C Primary Care Provider [phone] Reason for Visit * Reason Comments NEW PATIENT Blurred vision Dizziness * Evaluate & Treat - Unlimited Visits (Within 30 days (routine)) - Authorized Specialty Diagnoses / Procedures Referred By Delbert t Referred To Contact Neurology Diagnoses Blurred vision Dizziness Nisa Goodrich PA-C [address] [place] [address] Referral ID Status Reason Start Date Expiration Date Visits Requested Visits Authorized [id number] Authorized Specialty Services Required 04/29/[phone] Encounter Details Date Type Department Care Team (Late st Contact Info) Description 04/30/2024 9:20 AM EDT Office Visit [facility] [address] [facility] [place] [address] Lorelei Chadwick MD [address] [facility] [place] [address] Orthostatic dizziness* Allergies No known active allergiesdocumented as of this encounter (statuses as of 04/30/2024) Medications Medication Sig Dispensed Refills Start Date [...] as of this encounter (statuses as of 04/30/2024) Active Problems Problem Noted Date Diagnosed Date [...] as of this encounter (statuses as of 04/30/2024) Resolved Problems Problem Noted Date Diagnosed Date [...] as of this encounter (statuses as of 04/30/2024) Immunizations Name Administration Dates Next Due COVID-19 mRNA, LNP-s, No Pre serve, 2-Dose Series ([employer]) 07/30/2021,11/30/2020,11/09/2020 COVID-19, MRNA-LNP, 23-24, P F, 30 MCG/0.3 mL, 12 YRS AND ABOVE, IM ([place]acht[place]-Comirnat) 06/30/2023 Covid-19, Mrna, Lnp-s, Pf, B ivalent, [...] Sign Reading Time Taken Comments Blood Pressure 133/67 04/30/2024 9:11 AM EDT Pulse - - Temperature 36.5 C (97.7 F) 04/30/2024 9:07 AM ED T Respiratory Rate 16 04/30/2024 9:07 AM EDT Oxygen Saturation - - Inhaled Oxygen Concentration - - Weight 110.6 kg (243 lb 14.4 oz) 04/30/2024 9:07 AM EDT Height - - Body Mass Index 37.08 04/29/2024 10:46 AM EDT documented in this encounter Progress Notes * Lorelei Chadwick MD - 04/30/2024 10:02 AM EDT Images from the original note were not included. CLINIC NOTES Neurology [facility] [place] [address] [facility] [address] Almas Pack : 1955 NEUROLOGY OUTPATIENT NOTE 04/30/2024 HISTORY: The patient is referred for consultation byNisa Goodrich, who will be receiving a copy of this note. Reason for consultation lightheadedness. The patient is a 68-year-old right- handed male who was recently discharged from the hospital. In January he had coronary stenting for coronary artery disease andwas placed on Brilinta as well as aspirin. He had abdominal pain and frequent stools with bright red blood per rectum and was admitted to the hospital. He was switched from aspirin and Brilinta aspirin and Plavix was mildly anemic orthostatic at times. He was asked to be seen by Neurology who recommended an MRI the brain which by report was unremarkable and CTA showing no high-grade stenosis of the intracranial or extracranial vasculature. They did not think this was primary neurologic althoughrecommended a Zio which has been performed. The patient reports that if he stands up or gets from lying to sitting he will his vision will dim it lasts about 3 minutes if he stays standing but resolves with lying he feels off-balance somewhat to the left there has never been any vertigo no nausea he has noted some brief double vision if he looks out in the distance but he confused the images no unilateral weakness numbness facial droop no otologic symptoms ear pain ringing hearing loss he did not lose consciousness. Symptoms have waxed and waned but persisted to stomach stent. He had 2 stools with bright red bloodthis morning. He has lost about 15 lb over the 2 months he is making some dietary changes unclear what his hydration status is. His last CBC was performed 3 days ago in his scheduled in 4 days He has no personal history of stroke or transient ischemic attack Past Medical History: Diagnosis Date Dyslipidemia, goal to be determined HTN, goal below 140/90 11/08/2014 Pulmonary Nodule 07/03 0.7 cm RLL - stable on CT 07/03, 09/03, 03/03 Type 2 diabetes mellitus with hemoglobin A1c goal of less than 7.0% ([facility]) 12/05/2011 ICD-10 update of inactive term Patient Active Problem List Diagnosis Generalized osteoarthritis Type 2 diabetes mellitus with hemoglobin A1c goal of less than 7.0% ([facility]) Dyslipidemia, goal LDL below 70 HTN, goal below 140/90 Primary osteoarthritis of left knee Cervical spine pain Cervical spinal stenosis Spondylosis, cervical, with myelopathy Chronic neck pain Upper extremity weakness Pre-op testing Chronic coronary artery disease NSVT (nonsustained ventricular tachycardia) ([facility]) Presence of stent in LAD coronary artery Past Surgical History: Procedure Laterality Date COLONOSCOPY, DIAGNOSTIC (RECTUM) 05/07/2018 normal, repeat 10 yrs/COLONOSCOPY FLEXIBLE PROXIMAL DIAGNOSTIC performed by Dominic Jimenez MD at ENDOSCOPY [facility] COLORECTAL CANCER SCREEN; NOT AT RISK 01/13/[address] repeat [address] CHEST W CONTRAST mediastinal LAD and 0.7 cm nodule RLL - stable 07/03,09/03,03/03 KNEE ARTHROSCOPY/MENISCECTOMY Left 07/05/2019 ARTHROSCOPY KNEE MEDIAL OR LATERAL MENISCECTOMY performed by Aspen Villalpando DO at OR [facility] [place] RPLCMT PROST AORTIC VALVE OPEN XCP HOMOGRF/STENT 02/11/2024 REPAIR INGUINAL HERNIA, UNDER 6 MO 3 months old STRESS ECHO (EXERCISE) 06/2005 nl UMBIL HERNIA REPAIR (REDUCIBLE) AGE 5+YR N/A 08/24/2018 08/24/2018 umbilical hernia repair -- [facility] DR. 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 dissolve on tongue. 20 Tablet 0 Esomeprazole Magnesium 20 MG Oral [...] Tablet Chewable Take by mouth. Metoprolol Succinate ER 25 MG Oral Tablet Extended Release 24 Hour (toPROL XL) Take one half Tabletby mouth in the morning. 45 Tablet 3 Metoprolol Succinate ER 25 MG Oral Tablet Extended Release 24 Hour (Toprol XL) Take 0.5 Tablets by mouth in the morning. 7 Tablet 0 Clopidogrel Bisulfate 75 MG Oral Tablet (Plavix) Take 1 Tablet by mouth in the morning. 34 Tablet 11 No current facility-administered medications for this visit. Review of patient's allergies indicates: No Known Allergies Results for orders placed or performed in visit on 04/21/24 CBC Result Value Ref Range WBC 6.66 4.00 - 10.80 K/uL RBC 4.25 4.50 - 5.25 M/uL HGB 12.3 (L) 14.0 - 16.8 g/dL HCT 36.5 (L) 40.0 - 48.4 % MCV 85.9 82.0 - 99.5 fL MCH 28.9 27.0 - 34.0 pg MCHC 33.7 32.0 - 36.0 g/dL RDW 15.1 11.5 - 15.5 % PLT 263 140 - 400 K/uL MPV 8.7 6.6 - 11.1 fL Results for orders placed or performed in visit on 04/15/24 BASIC METABOLIC PANEL Result Value Ref Range BUN 16 6 - 20 mg/dL Creatinine 1.2 0.6 - 1.2 mg/dL Estimated Glomerular Filtration Rate 68 >=60 mL/min Sodium 139 135 - 146 mmol/L Potassium 4.8 3.5 - 5.1 mmol/L Chloride 102 98 - 107 mmol/L CO2 23 22 - 32 mmol/L Anion Gap 14 7 - 15 mmol/L Glucose 94 70 - 120 mg/dL Calcium 9.7 8.4 - 10.2 mg/dL Results for orders placed or performed [...] <=159 mg/dL Lab Results Component Value Date/Time HEMOGLOBIN A1C - [facility] 7.5 (H) 02/16/2024 08:46 AM HEMOGLOBIN A1C - [facility] 8.3 (H) 01/16/2024 07:53 AM HEMOGLOBIN A1C - [facility] 7.8 (H) 10/08/2023 09:11 AM HEMOGLOBIN A1C - [facility] 6.3 (H) 05/05/2020 07:47 AM HEMOGLOBIN A1C - [facility] 6.7 (H) 03/24/2019 09:17 AM HEMOGLOBIN A1C - [facility] 6.9 (H) 10/05/2018 08:21 AM Lab Results Component Value Date/Time TSH - [facility] 2.11 09/04/2011 08:00 AM TSH - [facility] 1.60 04/05/2011 11:13 AM TSH - [facility] 0.70 01/18/2000 09:44 PM No results found for: "[place]" Results for orders placed or performed in visit on 10/08/23 VITAMIN B12 Result Value Ref Range Vitamin B12 970 232 - 1,245 pg/mL No results found for: "SPHK10MHC7" No results found for: "QUYM02SQJ9" No results found for: "[id number]" No results found for: "25OHVITAMIND" Vitamin D Level Interpretation deficient: <20 ng/ml insufficient: 20-30 ng/ml normal: 31-100 ng/ml REVIEW OF SYSTEMS: As above mild non bothersome headache PHYSICAL EXAM: BP 133/67 (BP Position: Standing) | Temp 36.5 C (97.7 F) (Tympanic) | Resp 16 | Wt 110.6 kg (243 lb 14.4 oz) | BMI 37.08 kg/m | BSA 2.3 m 04/30/2024 04/30/2024 04/30/2024 BP: 133/67 124/64 135/72 Noted lightheadness BP Position: Standing Sitting Supine Resp: -- -- 16 Temp: -- -- 36.5 C (97.7 F) Temp src: -- -- Tympanic Weight: -- -- 110.6 kg (243 lb 14.4 oz) The patient is awake and alert speech and language are normal and affect is appropriate. There are no carotid bruits no heart murmurs heart is regular rate and rhythm. Pupils are equal round reactiveto light optic nerves are unremarkable there are normal hoang motility facial symmetry. Motor 5/5 no drift normal rapid alternating movements symmetric reflexes downgoing toes. Jdcbrt-ok-hudw xclq-ts-[id number] normal no dysdiadochokinesia gait unremarkable Romberg negative vibration sense present in the toes and fingers intact light touch IMPRESSION: Likely orthostatic lightheadedness contributed to possibly by meds as well as anemia. No evidence that this represents a vertiginous process. Patient encouraged to increase fluid intake transiently increased salt intake arise slowly. I sent a message to primary care regarding his ongoing bright red blood per rectum so that they may advise the patient. I will review his MRI of the brain and CTA which are said to show no acute ischemic infarction and no high-grade stenosis but will otherwise see him back Lorelei Chadwick MD 04/30/2024 10:02 AM documented in this encounter Nursing Notes * Sierra Gallo, MED ASSIST - 04/30/2024 9:07 AM EDT Chief Complaint Patient presents with NEW PATIENT Blurred vision Dizziness documented in this encounter Plan of Treatment Upcoming Encounters Date Type Department Care Team (Late st Contact Info) Description 05/12/2024 1:00 PM EDT Office Visit Gastroenterology, [facility] [address] [place] [address] Kary Perez CRNP [address] [place] [address] 05/17/2024 8:00 AM EDT Office Visit Pharmacy, [facility] [address] [place] [address] [facility] [address] [place] [address] 06/01/2024 10:00 AM EDT Office Visit Cardiology, [facility] [address] [place] [address] William Snider DO [address] [place] [address] 06/01/2024 11:40 AM EDT Office Visit [facility] [address] [place] [phone] Nisa Goodrich PA-C [address] [place] [place] [address] 07/01/2024 9:16 AM EDT Hospital Encounter OR [facility], Operating Room, [facility] - 4th Floor [address] [place] [phone] Marciano Lopez MD [address] [place] [address] 07/01/2024 9:16 AM EDT - 07/01/2024 9:52 AM EDT Surgery OR [facility], Operating Room, [facility] - 4th Floor [address] [place] [phone] Marciano Lopez MD [address] [place] [address] COLONOSCOPY FLEXIBLE PROXIMAL DIAGNOSTIC 09/06/2024 11:00 AM EST Office Visit [place] [address] [place] [phone] Nisa Goodrich PA-C [address] [place] [facility] [place] [address] 09/08/2024 7:40 AM EST Office Visit [facility] [address] [place] [phone] Alonso Daigle MD [address] [place] [address] 09/14/2024 8:45 AM EST Office Visit Orthopaedics Spine Surgery, [facility] [address] [place] [address] Kleber Batres MD [address] [place] [address] Scheduled Procedures Name Priority Associated Diagnoses Date/Ti [...] Priority Associated Diagnoses Orde r Schedule ADULT NEUROLOGY REFERRAL OP Referral Within 30 days (routine) Blurred vision Dizziness Ordered: 04/29/2024 Health Maintenance Due Date Last Done Comments [...] 0 05/2022, 02/09/2021, Additional history exists GFR 04/15/2025 04/15/2024, 0 04/2024, 10/08/2023, Additional history exists Colonoscopy 05/07/2028 05/07/2018, 0 01/2018, 01/13/2007 DTap/Tdap [...] as of this encounter Visit Diagnoses Diagnosis Orthostatic dizziness- Primary Blood in stool documented in this encounter Advance Directives * Full Code (Latest Code Status on File) Date Activated Date Inactivated Comments 07/05/2019 10:32 AM 07/05/2019 4:23 PM This order reflects the patients wishes and were consensually agreed upon. Care Teams Cigarette Seller Relationship Specialty Start Date End Date Nisa Goodrich PA-C [address] [place] [address] PCP - General Physician Associate Pathologist 03/14/24 documented as of this encounter
--- OUTSIDE RECORDS SUMMARY | 2024-06-04 05:56 | External Medical Summary | Summary of Care ---
Author Name Unknown Organization [facility] Address [address] [facility] [place] [address] Phone [phone] Care Team Providers Care Dance Hall Hostess Name Role Phone Nisa Goodrich PA-C Primary Care Provider [phone] Reason for Visit * Reason Onset Date Comments Test Results 04/30/2024 Encounter Details Date Type Department Care Team (Late st Contact Info) Description 04/30/2024 Telephone Cardiology, [facility] [address] [place] [address] Rosa Fajardo PA-C [address] [place] [address] Test Results Allergies No known active allergiesdocumented [...] mRNA, LNP-s, No Pre serve, 2-Dose Series (Fingerprint) 07/30/2021,11/30/2020,11/09/2020 COVID-19, MRNA-LNP, 23-24, P F, 30 MCG/0.3 mL, 12 YRS AND ABOVE, IM (GroupZoom-Comirnaty) 06/30/2023 Covid-19, Mrna, Lnp-s, Pf, B ivalent, [...] encounter Miscellaneous Notes * Telephone Encounter - Derrell Prajaapti LPN - 04/30/2024 1:04 PM EDT Sent patient a tok tok tok message to make aware. ----- Message from Rosa Fajardo sent at 04/30/2024 12:57 PM EDT ----- Monitor results reviewed Normal sinus rhythm. No concerning arrhythmias. Continue current medications documented in this encounter Plan of Treatment Upcoming Encounters Date Type Department Care Team (Late st Contact Info) Description 05/12/2024 1:00 PM EDT Office Visit Gastroenterology, [facility] [address] [place] [address] Kary Perez CRNP [address] [place] [address] 05/17/2024 8:00 AM EDT Office Visit Pharmacy, [facility] [address] [place] [address] [facility] [address] [place] [address] 06/01/2024 10:00 AM EDT Office Visit Cardiology, [facility] [address] [place] [address] William Snider DO [address] [place] [address] 06/01/2024 11:40 AM EDT Office [facility] [address] [facility] [facility] [address] Nisa Goodrich PA-C [address] [facility] [place] [address] 07/01/2024 9:16 AM EDT Hospital Encounter OR [facility], Operating Room, [facility] - 4th Floor [address] [place] [address] Marciano Lopez MD [address] [place] [address] 07/01/2024 9:16 AM EDT - 07/01/2024 9:52 AM EDT Surgery OR [facility], Operating Room, [facility] - 4th Floor [address] [place] [address] Marciano Lopez MD [address] [place] [address] COLONOSCOPY FLEXIBLE PROXIMAL DIAGNOSTIC 09/06/2024 11:00 AM EST Office [facility] [place] [address] [address] [facility] [address] Nisa Goodrich PA-C [address] [place] [address] 09/08/2024 7:40 AM EST Office [facility] [address] [facility] [phone] Alonso Daigle MD [address] [place] [address] 09/14/2024 8:45 AM EST Office Visit Orthopaedics Spine Surgery, [facility] [place] [address] [place] [address] Kleber Batres MD [address] [place] [address] Scheduled Procedures Name Priority Associated Diagnoses Date/Ti [...] and were consensually agreed upon. Care Teams Dance Hall Hostess Relationship Specialty Start Date End Date Nisa Goodrich PA-C [address] [facility] [place] [address] PCP - General Physician [employer] Ax Consultant 03/14/24 documented as of this encounter
--- OUTSIDE RECORDS SUMMARY | 2024-06-04 05:56 | External Medical Summary ---
Author Name Unknown Address Unknown Organization [facility] [address] [place] [address] Laboratory Report Ordering Provider Test Date Status ERICK ADAMS 05/04/2024 10:51:49 Final Observation Date Value Abnormality Reference (Units ) Status BUN 05/04/2024 10:51:49 16 6-20 (mg/dL) Final Creatinine 05/04/2024 10:51:49 1.1 0.6-1.2 (mg/dL) Final Glomerular filtration rate/1.73 sq M.predicted [Volume Rate/Area] in Serum, Plasma or Blood by Creatinine-based formula (CKD-EPI) 05/04/2024 10:51:49 75 >=60 (mL/min) Final eGFR is calculated based on the CKD-EPI 2020 equation. Sodium 05/04/2024 10:51:49 140 135-146 (m mol/L) Final Potassium 05/04/2024 10:51:49 4.6 3.5-5.1 (m mol/L) Final Cl 05/04/2024 10:51:49 102 98-107 (mm ol/L) Final CO2 05/04/2024 10:51:49 26 22-32 (mmo l/L) Final Anion gap 05/04/2024 10:51:49 12 7-15 (mmol /L) Final Glucose 05/04/2024 10:51:49 161 Above high normal 70 -120 (mg/dL) Final Albumin 05/04/2024 10:51:49 4.2 3.8-5.0 (g /dL) Final AST (Aspartate aminotransferase) 05/04/2024 10:51:49 16 10-50 (U/L) Fin al Alk Phos 05/04/2024 10:51:49 99 35-130 (U/ L) Final Bilirubin, Total 05/04/2024 10:51:49 0.9 <=1 .2 (mg/dL) Final Calcium 05/04/2024 10:51:49 9.6 8.4-10.2 ( mg/dL) Final Protein 05/04/2024 10:51:49 6.5 6.0-8.3 (g /dL) Final ALT (Alanine aminotransferase) 05/04/2024 10:51:49 25 10-50 (U/L) Clyde serrano Performing Location [facility] [facility] [address]
--- OUTSIDE RECORDS SUMMARY | 2024-06-04 05:56 | External Medical Summary | Summary of Care ---
Author Name Unknown Organization [facility] Address [address] [facility] [place] [address] Phone [phone] Care Team Providers Care Lease Administration Supervisor Name Role Phone Nisa Goodrich PA-C Primary Care Provider [phone] Encounter Details Date Type Department Care Team (Late st Contact Info) Description 05/04/2024 12:40 PM EDT Immunization Ancillary [facility] [address] [place] [address] [facility] [address] [place] [address] Arrived Allergies No known active allergiesdocumented as [...] Date Diagnosed Date NSVT (nonsustained ventricular tachycardia) 0704/2024 Presence of stent in LAD coronary artery [...] mRNA, LNP-s, No Pre serve, 2-Dose Series ([email or web address]) 07/30/2021,11/30/2020,11/09/2020 COVID-19, MRNA-LNP, 23-24, P F, 30 MCG/0.3 mL, 12 YRS AND ABOVE, IM [facility] 06/30/2023 Covid-19, Mrna, Lnp-s, Pf, B ivalent, 30 Mcg, IM, 12 yrs and above ([email or web address]) 06/20/2022 HEP A - Hepatitis A (Adult [...] 05/12/2024 1:00 PM EDT Office Visit Gastroenterology, [facility] [address] [place] [address] Kary Perez CRNP [address] [place] [address] 05/17/2024 8:00 AM EDT Office Visit Pharmacy, [facility] [address] [place] [address] [facility] [address] [place] [address] 06/01/2024 10:00 AM EDT Office Visit Cardiology, [facility] [address] [place] [address] William Snider DO [address] [place] [address] 07/01/2024 9:16 AM EDT Hospital Encounter OR [facility], Operating Room, [facility] - 4th Floor [address] [employer] [place] [address] Marciano Lopez MD [address] [place] [address] 07/01/2024 9:16 AM EDT - 07/01/2024 9:52 AM EDT Surgery OR [facility], Operating Room, [facility] - 4th [facility] [address] [facility] [place] [address] Marciano Lopez MD [address] [place] [address] COLONOSCOPY FLEXIBLE PROXIMAL DIAGNOSTIC 07/21/2024 11:40 AM EST Office Visit [facility] [address] [address] Nisa Goodrich PA-C [address] [facility] [place] [address] 09/06/2024 11:00 AM EST Office Visit [facility] [address] [facility] [place] [address] Nisa Goodrich PA-C [address] [place] [place] [address] 09/08/2024 7:40 AM EST Office Visit [facility] [place] [address] [facility] [place] [phone] Alonso Daigle [facility] [address] [facility] [address] 09/14/2024 8:45 AM EST Office Visit Orthopaedics Spine Surgery, [facility] [place] [address] [place] [address] Kleber Batres MD [address] [place] [address] Scheduled Procedures Name Priority Associated Diagnoses Date/Ti [...] exists Influenza Vaccine (FLU shot) (#1) 2024 05/04/2024, 06/30/2023, 05/10/2022, Additional history exists HbA1c 08/17/2024 02/16/2024, 12/30, [...] and were consensually agreed upon. Care Teams Lease Administration Supervisor Relationship Specialty Start Date End Date Nisa Goodrich PA-C [address] [facility] [place] [address] PCP - General Physician Broadcast Supervisor 03/14/24 documented as of this encounter
--- OUTSIDE RECORDS SUMMARY | 2024-06-04 05:57 | External Medical Summary | Summary of Care ---
Author Name Unknown Organization [facility] Address [address] [place] [address] Phone [phone] Care Team Providers Care Commercial Accountant Name Role Phone Nisa Goodrich PA-C Primary Care Provider [phone] Reason for Referral * Evaluate & Treat - Unlimited Visits (Within 30 days (routine)) - Authorized Specialty Diagnoses / Procedures Referred By Delbert stephen Referred To Contact Neurology Diagnoses Blurred vision Dizziness Nisa Goodrich PA-C [address] [place] [address] Referral ID Status Reason Start Date Expiration Date Visits Requested Visits Authorized [id number] Authorized Specialty Services Required 04/29/2024 999 999 Question Answer Referral Priority Within 30 days (routine) Where should this appointment be scheduled? [facility] Is this referral being placed for insurance purposes ONLY No, patient needs appointment [facility] NEUROLOGY REFERRAL QUESTIONS Other Conditions Comments F/u hospital, blurred vision and dizziness, * Social Care (Within 3 days (urgent)) - Authorized Specialty Diagnoses / Procedures Referred By Contac t Referred To Contact Door To Door Fundraising Collector Diagnoses Chest pain, unspecified type Rectal bleeding E. coli colitis Generalized weakness Nisa Goodrich PA-C [address] [place] [address] Referral ID Status Reason Start Date Expiration Date Visits Requested Visits Authorized [id number] Authorized Specialty Services Required 04/29/2024 999 999 Question Answer Role Harp Regulator Harp Regulator Referral Reason Transition of Care (SABRINA)/High Risk for Readmission Referral Priority Within 3 days (urgent) Where should this appointment be scheduled? [facility] Comments Is patient being transitioned [facility] to [facility]? 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, still weak Reason for Visit * Reason Comments Hospital Follow-Up Pt states that he is here due to ER follow up for epigastric ans chest pain radiating down both arms. Encounter Details Date Type Department Care Team (Late st Contact Info) Description 04/29/2024 10:40 AM EDT Office Visit [facility] [address] [place] [address] Nisa Goodrich PA-C [address] [place] [address] Hospital discharge follow-up*; Chest pain, unspecified type; Rectal bleeding; E. coli colitis; Generalized weakness; Blurred vision; Dizziness Allergies No known active allergiesdocumented as of this encounter (statuses as of 04/29/2024) Medications Medication Sig Dispensed Refills Start Date [...] dissolve on tongue. 20 Tablet 4 Active Esomeprazole Magnesium 20 MG Oral [...] first thing in the morning. 4 Active Hydrocortisone Acetate 25 MG Rectal Suppository (Anusol-HC)Indicati ons:Rectal bleeding Administer into the rectum 2 times a day in the morning and at bedtime as needed for Hemorrhoids. Up to 2 weeks. 24 Suppository 1 4 Active Metamucil Fiber Oral Tablet Chewable Take by mouth. Active Metoprolol Succinate ER 25 MG Oral Tablet Extended Release 24 Hour (toPROL XL)Indications:HTN, goal below 140/90,Chronic coronary artery disease,NSVT (nonsustained ventricular tachycardia) (HCC),Dyslipidemia, goal LDL below 70 Take one half Tablet by mouth in the morning. 45 Tablet 3 4 Active Metoprolol Succinate ER 25 MG Oral Tablet Extended Release 24 Hour (Toprol XL)Indications:HTN, goal below 140/90,NSVT (nonsustained ventricular tachycardia) (HCC),Dyslipidemia, goal LDL below 70 Take 0.5 Tablets by mouth in the morning. 7 Tablet 4 Active Clopidogrel Bisulfate 75 MG Oral Tablet (Plavix) Take 1 Tablet by mouth in the morning. 34 Tablet 11 4 Active Lisinopril 20 MG Oral Tablet (Prinivil)Indicatio ns:HTN, goal below 140/90 TAKE ONE TABLET BY MOUTH EVERY DAY 90 Tablet 2 4 04/29/20 24 Discontinu ed(End of Procedure) Isosorbide Mononitrate ER 30 MG Oral Tablet Extended Release 24 Hour (Imdur)Indications: HTN, goal below 140/90,Chronic coronary artery disease,NSVT (nonsustained ventricular tachycardia) (HCC),Dyslipidemia, goal LDL below 70 Take 1 Tablet by mouth in the morning. 90 Tablet 3 4 04/29/20 24 Discontinu ed(End of Procedure) documented as of this encounter (statuses as of 04/29/2024) Active Problems Problem Noted Date Diagnosed Date [...] as of this encounter (statuses as of 04/29/2024) Resolved Problems Problem Noted Date Diagnosed Date [...] as of this encounter (statuses as of 04/29/2024) Immunizations Name Administration Dates Next Due COVID-19 mRNA, LNP-s, No Pre serve, 2-Dose Series ([employer]) 07/30/2021,11/30/2020,11/09/2020 COVID-19, MRNA-LNP, 23-24, P F, 30 MCG/0.3 mL, 12 YRS AND ABOVE, IM ([facility] 06/30/2023 Covid-19, Mrna, Lnp-s, Pf, [...] Sign Reading Time Taken Comments Blood Pressure 126/74 04/29/2024 10:46 AM EDT Pulse 81 04/29/2024 10:46 AM EDT Temperature 36.7 C (98 F) 04/29/2024 10:46 AM EDT Respiratory Rate 16 04/29/2024 10:46 AM EDT Oxygen Saturation 95% 04/29/2024 10:46 AM EDT Inhaled Oxygen Concentration - - Weight 110 kg (242 lb 9.6 oz) 04/29/2024 10:46 A M EDT Height 172.7 cm (5' 8") 04/29/2024 10:46 AM EDT Body Mass Index 36.89 04/29/2024 10:46 AM EDT documented in this encounter Progress Notes * Nisa Goodrich PA-C - 04/29/2024 10:53 AM EDT Images from the original note were not included. History of Present Illness Almas Pack is a 68 year old male that presents for Hospital Follow-Up (Pt states that he is heredue to ER follow up for epigastric ans chest pain radiating down both arms. ) Here for hospital follow up Was admitted to [facility] on 04/21/2024 under the service of Dr Elizalde Had been at cardiac rehab and noted some chest pain, he had to stop exercising. Had been having increased BRBPR since started on dual antiplatelet therapy. Had been on asa and brillinta - this was changed to plavix Had the cp and stomach pains. 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 (04/23/2024) as well as norovirus C diff was negative Treated with zithromax 500 mg X 3 doses Egd was unremarkable - advised carafate if epigastic discomfort Stroke was ruled out Head, neck ct/cta all remarkable Neurology was consulted and suggested that he have a zio patch Signed by Andrew Manning MD on 04/28/24 at 0934 REASON FOR STUDY: dizziness; non sustained Vt on dobutamine; CONCLUSIONS: Final Interpretation Indications: Dizziness, ventricular tachycardia Duration: 6 days, 22 hours CONCLUSIONS: Preliminary Findings Prepared by Maritza Mariee, LIZ 04/28/24 Patient had a min HR of 56 bpm, max HR of 119 bpm, and avg HR of 81 bpm. Predominant underlying rhythm was Sinus Rhythm. Isolated SVEs were rare (<1.0%), SVE Couplets were rare (<1.0%), and SVE Triplets were rare (<1.0%). Isolated VEs were rare (<1.0%), VE Couplets were rare (<1.0%), and no VE Triplets were present. The patient recorded for event markers and 4 diary entries. Episodes correlated with sinus and sinus tachycardia. Sensed ventricular ectopy were present on 2 occasions. Symptoms were described as chest pressure lightheadedness No arrhythmias were observed Refer to rhythm strips available for review under the MUSE link for additional detail Negative bilateral dopplers Sugar was controlled - A1c was 6.5 Patient felt to be stable and was discharged on 04/27/2021 Still light headed today Past Medical History: Diagnosis Date Dyslipidemia, goal to be determined HTN, goal below 140/90 11/08/2014 Pulmonary Nodule 07/03 0.7 cm RLL - stable on CT 07/03, 09/03, 03/03 Type 2 diabetes mellitus with hemoglobin A1c goal of less than 7.0% ([facility]) 12/05/2011 ICD-10 update of inactive term Clopidogrel Bisulfate 75 MG Oral Tablet (Plavix) Metamucil Fiber Oral Tablet Chewable Metoprolol Succinate ER 25 MG Oral Tablet Extended Release 24 Hour (toPROL XL) Metoprolol Succinate ER 25 MG Oral Tablet Extended Release 24 Hour (Toprol XL) Hydrocortisone Acetate 25 MG Rectal Suppository (Anusol-HC) Rybelsus 7 MG Oral Tablet Ezetimibe 10 MG Oral Tablet (Zetia) Gabapentin 100 MG Oral Capsule (Neurontin) Esomeprazole Magnesium 20 MG Oral Capsule Delayed Release (NexIUM) Ondansetron 4 MG Oral Tablet Disintegrating (Zofran) Atorvastatin Calcium 80 MG Oral Tablet (Lipitor) Fluticasone Propionate 50 MCG/ACT Nasal Suspension (Flonase) metFORMIN HCl 1000 MG Oral Tablet (Glucophage) Montelukast Sodium 10 MG Oral Tablet (Singulair) Fexofenadine HCl 180 MG Oral Tablet (Amairani) Diclofenac Sodium (VOLTAREN) 1 % gel Magnesium 250 MG Tablet Potassium Gluconate 550 MG TABS FISH OIL 1000 MG PO CPDR ONE DAILY MENS PO TABS ASPIRIN 81 MG OR TABS Extensive ROS Constitutional (f/c/wt/vision/hearing): + hot flashes and dizziness, appetite is poor Resp (cough/sob/page): continued sob CV (cp/palp/fluttering/diaphoresis/page/pnd):cp with exertion GI (n/v/d/hrtburn): still diarrhea, blood in stool twice yesterday, none today - he is not Endo (hair/cold or heat intol/ 3 p's): Negative Neuro (shaking/weak/fatigu/parasthesi/): see above hpi Skin (rash/easy bruis/xerosis): Negative Psy (si/hi/halluc/): Negative (nocturia/hesit/drib/sexual review): Negative Lymph (swollen glands/b sx's/: Negative Physical Exam Vitals: 04/29/24 1046 Temp: 36.7 C (98 F) Pulse: 81 Resp: 16 SpO2: 95% BP: 126/74 BMI: 36.9 BP Readings from Last 3 Encounters: 04/29/24 126/74 04/16/24 138/78 03/22/24 106/60 Wt Readings from Last 3 Encounters: 04/29/24 110 kg (242 lb 9.6 oz) 04/16/24 113.4 kg (250 lb) 03/22/24 113.5 kg (250 lb 5 oz) BMI Readings from Last 3 Encounters: 04/29/24 36.89 kg/m 04/16/24 38.01 kg/m 03/22/24 38.06 kg/m Ht Readings from Last 3 Encounters: 04/29/24 1.727 m (5' 8") 03/12/24 1.727 m (5' 8") 02/09/24 1.727 m (5' 8") General: alert, healthy, [...] chest wall tenderness, lungs clear to auscultation Pulses: carotid=2/4 w/o bruits Abdomen: abdomen soft, non-tender, normal bowel sounds, and no masses or organomegaly Back: back symmetric, no curvature, no costovertebral angle tenderness, range of motion is normal Extremities: less than 2 second capillary refill, no joint deformities, effusion, or inflammation Neuro Exam: alert & oriented x 3 with fluent speech, no focal motor/sensory deficits, gait normal, reflexes normal and symmetric Skin: skin color, texture, turgor are normal, no rashes or significant lesions Assessment and Plan Hospital discharge follow-up (Primary) Chest pain, unspecified type - POPULATION HEALTH REFERRAL OP Rectal bleeding - POPULATION HEALTH REFERRAL OP E. coli colitis - POPULATION HEALTH REFERRAL OP Generalized weakness - POPULATION HEALTH REFERRAL OP Blurred vision - CBC WITH WBC DIFFERENTIAL; Future; Expected date: 04/29/2024 - COMPREHENSIVE METABOLIC PANEL; Future; Expected date: 04/29/2024 - ADULT NEUROLOGY REFERRAL OP Dizziness - CBC WITH WBC DIFFERENTIAL; Future; Expected date: 04/29/2024 - COMPREHENSIVE METABOLIC PANEL; Future; Expected date: 04/29/2024 - ADULT NEUROLOGY REFERRAL OP Rev notes from [facility] Wrap-Up GI appt 05/12/2024 Cardiology appt 06/01/2024 - ask a doc to Dr Baumann to rev case ahead of time Labs friday Time: I spent a total of Greater than 55 mins (exact time 56 mins) on the date of service in preparation,delivery, and documentation of the care provided to Almas Pack excluding any time spent in the performance of separately billed services. Nisa Goodrich PA-C 04/29/2024 11:31 AM documented in this encounter Nursing Notes * Elba Burris LPN - 04/29/2024 10:46 AM EDT Almas Pack is a 68 year old male who presents today for Chief Complaint Patient presents with Hospital Follow-Up Pt states that he is here due to ER follow up for epigastric ans chest pain radiating down both arms. documented in this encounter Plan of Treatment Upcoming Encounters Date Type Department Care Team (Late st Contact Info) Description 04/30/2024 9:20 AM EDT Office Visit Neurology [facility] [place] [address] [facility] [place] [address] Lorelei Chadwick MD [address] [facility] [place] [address] 05/12/2024 1:00 PM EDT Office Visit Gastroenterology, [facility] [address] [facility] [place] [address] Kary Perez CRNP [address] [place] [address] 05/17/2024 8:00 AM EDT Office Visit Pharmacy, [facility] [address] [place] [address] [facility] [address] [place] [address] 06/01/2024 10:00 AM EDT Office Visit Cardiology, [facility] [address] [place] [address] William Snider DO [address] [place] [address] 07/01/2024 9:16 AM EDT Hospital Encounter OR [facility], Operating Room, [facility] - 4th [facility] [address] [place] [address] Marciano Lopez MD [address] [place] [address] 07/01/2024 9:16 AM EDT - 07/01/2024 9:52 AM EDT Surgery OR [facility], Operating Room, [facility] - 4th Floor [address] [place] [address] Marciano Lopez MD [address] [place] [address] COLONOSCOPY FLEXIBLE PROXIMAL DIAGNOSTIC 09/06/2024 11:00 AM EST Office Visit [facility] [address], [place] [address] Nisa Goodrich PA-C [address] [place] [address] 09/08/2024 7:40 AM EST Office Visit [facility] [address] [place] [phone] Alonso Daigle MD [address] [place], [place] [id number] 09/14/2024 8:45 AM EST Office Visit Orthopaedics Spine Surgery, [facility] [address] [place] [address] Kleber Batres MD [address] [place] [address] Scheduled Orders Name Type Priority Associated Diagnoses Orde r Schedule CBC WITH WBC DIFFERENTIAL Lab Routine Blurred vision Dizziness Expected: 04/29/2024 (Approximate), Expires: 04/29/2025 COMPREHENSIVE METABOLIC PANEL Lab Routine Blurred vision Dizziness Expected: 04/29/2024 (Approximate), Expires: 04/29/2025 Scheduled Procedures Name Priority Associated Diagnoses Date/Ti [...] Type Priority Associated Diagnoses Orde r Schedule POPULATION HEALTH REFERRAL OP Referral Within 3 days (urgent) Chest pain, unspecified type Rectal bleeding E. coli colitis Generalized weakness Ordered: 04/29/2024 ADULT NEUROLOGY REFERRAL OP Referral Within 30 [...] as of this encounter Visit Diagnoses Diagnosis Hospital discharge follow-up- Primary Other follow-up examination Chest pain, unspecified type Rectal bleeding Hemorrhage of rectum and anus E. coli colitis Intestinal infection due to E. coli, unspecified Generalized weakness Other malaise and fatigue Blurred vision Other specified visual disturbances Dizziness Dizziness and giddiness Blood in stool documented in this encounter Advance Directives * Full Code (Latest Code Status on File) Date Activated Date Inactivated Comments 07/05/2019 10:32 AM 07/05/2019 4:23 PM This order reflects the patients wishes and were consensually agreed upon. Care Teams Commercial Accountant Relationship Specialty Start Date End Date Nisa Goodrich PA-C [address] [facility] [place] [address] PCP - General Physician Fractionating Still Operator 03/14/24 documented as of this encounter
--- OUTSIDE RECORDS SUMMARY | 2024-06-04 05:57 | External Medical Summary | Summary of Care ---
Author Name Unknown Organization [facility] Address [address] [place] [address] Phone [phone] Care Team Providers Care Leather Goods Assembler Name Role Phone Nisa Goodrich PA-C Primary Care Provider [phone] Reason for Visit * Reason Onset Date Comments Appointment 04/29/2024 Return in about 4 weeks (around 05/27/2024) for reg return 4-6 weeks. Encounter Details Date Type Department Care Team (Late st Contact Info) Description 04/29/2024 Telephone [facility] [address] [place] [address] Nisa Goodrich PA-C [address] [place] [address] Appointment (Return in about 4 weeks (arou... Allergies No known active allergiesdocumented as of [...] mRNA, LNP-s, No Pre serve, 2-Dose Series ([employer]) 07/30/2021,11/30/2020,11/09/2020 COVID-19, MRNA-LNP, 23-24, P F, 30 MCG/0.3 mL, 12 YRS AND ABOVE, IM ([employer]) 06/30/2023 Covid-19, Mrna, Lnp-s, Pf, B ivalent, 30 Mcg, IM, 12 yrs and above ([employer]) 06/20/2022 HEP A - Hepatitis A (Adult [...] Telephone Encounter - Nisa Goodrich PA-C - 04/29/2024 12:24 PM EDT Maybe an 11:40 over book Nisa Goodrich PA-C * Telephone Encounter - Caitlyn Carvalho OSA - 04/29/2024 11:40 AM EDT Per 04/29/2024 checkout notes: Return in about 4 weeks (around 05/27/2024) for reg return 4-6 weeks. Please provide date and time that patient can return as there are no available appts until July. 04/29/2024 documented in this encounter Plan of Treatment Upcoming Encounters Date Type Department Care Team (Late st Contact Info) Description 04/30/2024 9:20 AM EDT Office Visit Neurology [facility] [address] [facility] [place] [address] Lorelei Chadwick MD 200 [place] [address] 05/12/2024 1:00 PM EDT Office Visit Gastroenterology, [facility] [address] [facility] [place] [address] Kary Perez CRNP [address] [place] [address] 05/17/2024 8:00 AM EDT Office Visit Pharmacy, [facility] [place] [address] [facility] [address] [facility] [place] [address] 06/01/2024 10:00 AM EDT Office Visit Cardiology, [facility] [address] [facility] [place] [address] William Snider DO [address] [place] [address] 07/01/2024 9:16 AM EDT Hospital Encounter OR [facility], Operating Room, [facility] - 4th Floor [address] [facility] [place] [address] Marciano Lopez MD [address] [place] [address] 07/01/2024 9:16 AM EDT - 07/01/2024 9:52 AM EDT Surgery OR [facility], Operating Room, [facility] - 4th Floor [address] [facility] [place] [address] Marciano Lopez MD [address] [place] [address] COLONOSCOPY FLEXIBLE PROXIMAL DIAGNOSTIC 09/06/2024 11:00 AM EST Office Visit [place] [address] [address] [facility] [place] [address] Nisa Goodrich PA-C [address] [facility] [place] [address] 09/08/2024 7:40 AM EST Office Visit [facility] [address] [facility], [place] [address] Alonso Daigle MD [address] [facility] [place] [address] 09/14/2024 8:45 AM EST Office Visit Orthopaedics Spine Surgery, [facility] [address] [place] [address] Kleber Batres MD [address] [place] [address] Scheduled Procedures Name Priority Associated Diagnoses Date/Ti [...] 02/09/2021, Additional history exists GFR 04/15/2025 04/15/2024, 070 04/2024, 10/08/2023, Additional history exists Colonoscopy 05/07/2028 [...] and were consensually agreed upon. Care Teams Leather Goods Assembler Relationship Specialty Start Date End Date Nisa Goodrich PA-C [address] [place] [address] PCP - General Physician Nurse Midwife 03/14/24 documented as of this encounter
--- OUTSIDE RECORDS SUMMARY | 2024-06-04 05:57 | External Medical Summary | Summary of Care ---
Author Name Unknown Organization [facility] Address [address] [place] [address] Phone [phone] Care Team Providers Care V Belt Builder Name Role Phone Nisa Goodrich PA-C Primary Care Provider [phone] Reason for Visit * Reason Onset Date Comments Appointment 04/29/2024 Return in about 4 weeks (around 05/27/2024) for reg return 4-6 weeks. Encounter Details Date Type Department Care Team (Late st Contact Info) Description 04/29/2024 Telephone [facility] [address] [place] [address] Nisa Goodrich PA-C [address] [place] [address] Appointment (Return in about 4 [...] mRNA, LNP-s, No Pre serve, 2-Dose Series ([employer]) 07/30/2021,11/30/2020,11/09/2020 COVID-19, MRNA-LNP, 23-24, P F, 30 MCG/0.3 mL, 12 YRS AND ABOVE, IM ([employer]) 06/30/2023 Covid-19, Mrna, Lnp-s, Pf, B ivalent, 30 Mcg, IM, 12 yrs and above ([employer]) 06/20/2022 HEP A - Hepatitis A (Adult [...] 04/30/2024 9:20 AM EDT Office Visit Neurology [facility] [address] [facility] [place] [address] Lorelei Chadwick MD 200 [place] [address] 05/12/2024 1:00 PM EDT Office Visit Gastroenterology, [facility] [address] [facility] [place] [address] Kary Perez CRNP [address] [place] [address] 05/17/2024 8:00 AM EDT Office Visit Pharmacy, [facility] [address] [facility] [place] [address] [facility] [address] [facility] [facility] [place] [address] 06/01/2024 10:00 AM EDT Office Visit Cardiology, [facility] [address] [facility] [place] [address] William Snider DO [address] [place] [address] 07/01/2024 9:16 AM EDT Hospital Encounter OR [facility], Operating Room, [facility] - 4th Floor [address] [facility] [place] [address] Marciano Lopez MD [address] [place] [address] 07/01/2024 9:16 AM EDT - 07/01/2024 9:52 AM EDT Surgery OR [facility], Operating Room, [facility] - 4th Floor [address] [facility] [place] [address] Marciano Lopez MD [address] [place] [address] COLONOSCOPY FLEXIBLE PROXIMAL DIAGNOSTIC 09/06/2024 11:00 AM EST Office Visit [place] [address] [facility] [place] [phone] Nisa Goodrich PA-C [address] [place] [facility] [place] [address] 09/08/2024 7:40 AM EST Office Visit [facility] [address] [facility] [place] [address] Alonso Daigle MD [address] [place] [facility] [place] [address] 09/14/2024 8:45 AM EST Office Visit Orthopaedics Spine Surgery, [facility] [address] [place] [address] Kleber Batres MD [address] [place] [address] Scheduled Procedures Name Priority Associated Diagnoses Date/Ti [...] and were consensually agreed upon. Care Teams V Belt Builder Relationship Specialty Start Date End Date Nisa Goodrich PA-C [address] [place] [address] PCP - General Physician Field Technical Assistant 03/14/24 documented as of this encounter
--- OUTSIDE RECORDS SUMMARY | 2024-06-04 05:57 | External Medical Summary | Summary of Care ---
Author Name Unknown Organization [facility] Address [address] [place] [address] Phone [phone] Care Team Providers Care Chinchilla Machine Operator Name Role Phone Nisa Goodrich PA-C Primary Care Provider [phone] -[phone] Reason for Visit * Reason Onset Date Comments Appointment 04/29/2024 Return in about 4 weeks (around 05/27/2024) for reg return 4-6 weeks. Encounter Details Date Type Department Care Team (Late st Contact Info) Description 04/29/[address] [facility] [address] [place] [address] Nisa Goodrich PA-C [address] [place] [address] Appointment (Return in about 4 [...] mRNA, LNP-s, No Pre serve, 2-Dose Series ([email or web address].cn) 07/30/2021,11/30/2020,11/09/2020 COVID-19, MRNA-LNP, 23-24, P F, 30 MCG/0.3 mL, 12 YRS AND ABOVE, IM (Goomzee-ComirnatDragon Ports) 06/30/2023 Covid-19, Mrna, Lnp-s, Pf, B ivalent, 30 Mcg, IM, 12 yrs and above ([email or web address]) 06/20/2022 HEP A - Hepatitis A (Adult [...] 04/30/2024 9:20 AM EDT Office Visit Neurology [facility] [address] [facility] [place] [place] [address] Lorelei Chadwick MD 200 [place] [address] 05/12/2024 1:00 PM EDT Office Visit Gastroenterology, [facility] [address] [facility] [place] [address] Kary Perez CRNP [address] [place] [address] 05/17/2024 8:00 AM EDT Office Visit Pharmacy, [facility] [place] [address] [facility] [place] [address] 06/01/2024 10:00 AM EDT Office Visit Cardiology, [facility] 132 [facility] [place] [address] William Snider DO [address] [place] [address] 07/01/2024 9:16 AM EDT Hospital Encounter OR [facility], Operating Room, [facility] - 4th Floor [address] [facility] [place] [address] Marciano Lopez MD [address] [place] [address] 07/01/2024 9:16 AM EDT - 07/01/2024 9:52 AM EDT Surgery OR [facility], Operating Room, [facility] - 4th Floor [address] [facility] [place] [address] Marciano Lopez MD [address] [place] [address] COLONOSCOPY FLEXIBLE PROXIMAL DIAGNOSTIC 09/06/2024 11:00 AM EST Office Visit [place] [address] [place] [address] Nisa Goodrich PA-C [address] [place] [facility] [address] 09/08/2024 7:40 AM EST Office [facility] [address] [facility], [place] [address] Alonso Daigle MD [address] [place] [facility] [address] 09/14/2024 8:45 AM EST Office Visit Orthopaedics Spine Surgery, [facility] [place] [place] [address] [place] [address] Kleber Batres MD [address] [place] [address] Scheduled Procedures Name Priority Associated Diagnoses Date/Ti [...] and were consensually agreed upon. Care Teams Chinchilla Machine Operator Relationship Specialty Start Date End Date Nisa Goodrich PA-C [address] [place] [address] PCP - General Physician Fixed Assets Accountant 03/14/24 documented as of this encounter
--- OUTSIDE RECORDS SUMMARY | 2024-06-04 05:57 | External Medical Summary | Summary of Care ---
Author Name Unknown Organization [facility] Address [address] [place] [address] Phone [phone] Care Team Providers Care Cotton Inspector Name Role Phone Nisa Suarze PA-C Primary Care Provider +1 -[phone] Encounter Details Date Type Department Care Team (Late st Contact Info) Description 04/29/2024 Referral Triage Care Coordination and Integration [address] [place] [address] Andie Braswell OSA [address] [place] [address] Allergies No known active allergiesdocumented as of [...] mRNA, LNP-s, No Pre serve, 2-Dose Series (UIBLUEPRINT) 07/30/2021,11/30/2020,11/09/2020 COVID-19, MRNA-LNP, 23-24, P F, 30 MCG/0.3 mL, 12 YRS AND ABOVE, IM (Novariant-Cox [place]) 06/30/2023 Covid-19, Mrna, Lnp-s, Pf, B ivalent, 30 Mcg, IM, 12 yrs and above (UIBLUEPRINT) 06/20/2022 HEP A - Hepatitis A (Adult [...] as of this encounter Progress Notes * Andie Braswell OSA - 04/29/2024 5:00 PM EDT Images from the original note were not included. Received via [place] [address] Referral work queue. Patient Care Team: Sallie Carr RN as Recreation Adviser (Registered Nurse) Order Details Procedure: POPULATION HEALTH REFERRAL OP Associated diagnoses: R07.9 (ICD-10-CM) - Chest pain, unspecified type K62.5 (ICD-10-CM) - Rectal bleeding A04.4 (ICD-10-CM) - E. coli colitis R53.1 (ICD-10-CM) - Generalized weakness Date: 04/29/2024 Provider: Nisa Suarez PA-C Department: [facility] Progress Note Office Visit with NISA SUAREZ Order Questions Question Answer Role Pelts Skinner Pelts Skinner Referral Reason Transition of Care (SABRINA)/High Risk for Readmission Referral Priority Within 3 days (urgent) Where should this appointment be scheduled? [facility] Coverage Information GHP GOLD/GHP GOLD PREFERRED ENHANCED MP-DD (E-Verified) Response History Effective from: 10/30/2021 Subscriber name: [employer] Group number: [id number] Benefits Inquiry Notes Expand All Collapse All Provider Comments 04/29/2024 11:20 AM EDT by Nisa Suarez Is patient being transitioned from [facility] to Complex Case Management? 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, still weak documented in this encounter Plan of Treatment Upcoming Encounters Date Type Department Care Team (Late st Contact Info) Description 04/30/2024 9:20 AM EDT Office Visit Neurology [facility] 200 [place] [address] Lorelei Chadwick MD [address] [facility] [address] 05/12/2024 1:00 PM EDT Office Visit Gastroenterology, [facility] [address] [place] [address] Kary Perez CRNP [address] [place] [address] 05/17/2024 8:00 AM EDT Office Visit Pharmacy, [facility] [address] [place] [address] [facility] [address] [place] [address] 06/01/2024 10:00 AM EDT Office Visit Cardiology, [facility] [address] [place] [address] William Snider, [address] [place] [address] 07/01/2024 9:16 AM EDT Hospital Encounter OR [facility], Operating Room, [facility] - 4th Floor [address] [place] [place] [address] Marciano Lopez MD [address] [place] [address] 07/01/2024 9:16 AM EDT - 07/01/2024 9:52 AM EDT Surgery OR [facility], Operating Room, [facility] - 4th Floor [address] [place] [address] Marciano Lopez MD [address] [place] [address] COLONOSCOPY FLEXIBLE PROXIMAL DIAGNOSTIC 09/06/2024 11:00 AM EST Office Visit [place] [address] [address] [facility] [phone] Nisa Suarez PA-C [address] [facility] [address] 09/08/2024 7:40 AM EST Office Visit [facility] [address] [facility] [place] [phone] Alonso Daigle MD [address] [facility] [address] 09/14/2024 8:45 AM EST Office Visit Orthopaedics Spine Surgery, [place] [address] [place] [address] Kleber Batres MD [address] [place] [address] Scheduled Procedures Name Priority Associated Diagnoses Date/Ti [...] and were consensually agreed upon. Care Teams Cotton Inspector Relationship Specialty Start Date End Date Nisa Suarez PA-C [address] [place] [address] PCP - General Physician Hat Block Bench Hand 03/14/24 documented as of this encounter
--- OUTSIDE RECORDS SUMMARY | 2024-06-04 05:57 | External Medical Summary | Summary of Care ---
Author Name Unknown Organization [facility] Address [address] [place] [address] Phone [phone] Care Team Providers Care Certified Wellness Program Coordinator Name Role Phone Nisa Goodrich PA-C Primary Care Provider +1 -[phone] Reason for Visit * Reason Onset Date Comments Appointment 04/29/2024 Return in about 4 weeks (around 05/27/2024) for reg return 4-6 weeks. Encounter Details Date Type Department Care Team (Late st Contact Info) Description 04/29/2024 Telephone [facility] [address] [place] [address] Nisa Goodrich PA-C [address] [place] [address] Appointment (Return in about 4 [...] mRNA, LNP-s, No Pre serve, 2-Dose Series (PingTank) 07/30/2021,11/30/2020,11/09/2020 COVID-19, MRNA-LNP, 23-24, P F, 30 MCG/0.3 mL, 12 YRS AND ABOVE, IM (Bonica.co-ComirnatNakina Systems) 06/30/2023 Covid-19, Mrna, Lnp-s, Pf, B ivalent, 30 Mcg, IM, 12 yrs and above (PingTank) 06/20/2022 HEP A - Hepatitis A (Adult [...] Telephone Encounter - Caitlyn Carvalho OSA - 04/30/2024 10:13 AM EDT Done. 04/30/2024 * Telephone Encounter - Nisa Goodrich PA-C [...] 05/12/2024 1:00 PM EDT Office Visit Gastroenterology, [facility] [address] [address] Kary Perez CRNP [address] [place] [address] 05/17/2024 8:00 AM EDT Office Visit Pharmacy, [facility] [address] [place] [address] [facility] [address] [place] [address] 06/01/2024 10:00 AM EDT Office Visit Cardiology, [facility] [address] [place] [address] William Snider DO [address] [place] [address] 06/01/2024 11:40 AM EDT Office Visit [place] [address] [address] [facility], [place] [address] Nisa Goodrich PA-C [address] [facility], [place] [address] 07/01/2024 9:16 AM EDT Hospital Encounter OR [facility], Operating Room, [facility] - 4th Floor [address] [facility] [place] [address] Marciano Lopez MD [address] [place] [address] 07/01/2024 9:16 AM EDT - 07/01/2024 9:52 AM EDT Surgery OR [facility], Operating Room, [facility] - 4th Floor 400 [facility] [place] [address] Marciano Lopez MD [address] [place] [address] COLONOSCOPY FLEXIBLE PROXIMAL DIAGNOSTIC 09/06/2024 11:00 AM EST Office Visit [place] [address] [address] [facility], [place] [address] Nisa Goodrich PA-C [address] [facility], [place] [address] 09/08/2024 7:40 AM EST Office Visit [place] [address] [address] [facility], [place] [address] Alonso Daigle MD [address] [facility] [address] 09/14/2024 8:45 AM EST Office Visit Orthopaedics Spine Surgery, [place] [address] [place] [address] Kleber Batres MD [address] [place] [address] Scheduled Procedures Name Priority Associated Diagnoses Date/Ti [...] and were consensually agreed upon. Care Teams Certified Wellness Program Coordinator Relationship Specialty Start Date End Date Nisa Goodrich PA-C [address] [place] [address] PCP - General Physician Oil And Gas Well Treatment Operator 03/14/24 documented as of this encounter
--- OUTSIDE RECORDS SUMMARY | 2024-06-04 05:57 | External Medical Summary | Summary of Care ---
Author Name Unknown Organization [facility] Address [address] [facility] [address] Phone [phone] Care Team Providers Care Die Cast Die Maker Name Role Phone Nisa Goodrich PA-C Primary Care Provider [phone] [phone] Encounter Details Date Type Department Care Team (Late st Contact Info) Description 04/26/[address] [facility] [address] [place] [address] Nisa Goodrich PA-C [address] [place] [address] Allergies No known active allergiesdocumented as of this encounter (statuses as of 04/26/2024) Medications Medication Sig Dispensed Refills Start Date [...] as of this encounter (statuses as of 04/26/2024) Active Problems Problem Noted Date Diagnosed Date [...] as of this encounter (statuses as of 04/26/2024) Resolved Problems Problem Noted Date Diagnosed Date [...] as of this encounter (statuses as of 04/26/2024) Immunizations Name Administration Dates Next Due COVID-19 mRNA, LNP-s, No Pre serve, 2-Dose Series (Cuedd) 07/30/2021,11/30/2020,11/09/2020 COVID-19, MRNA-LNP, 23-24, P F, 30 MCG/0.3 mL, 12 YRS AND ABOVE, IM (Preen.Me-Comirnaty) 06/30/2023 Covid-19, Mrna, Lnp-s, Pf, B ivalent, 30 Mcg, IM, 12 yrs and above (Cuedd) 06/20/2022 HEP A - Hepatitis A (Adult [...] Description 04/29/2024 10:40 AM EDT Office [facility] [address] [facility] [address] Nisa Goodrich PA-C [address] [facility] [address] 05/12/2024 1:00 PM EDT Office Visit Gastroenterology, [facility] [address] [place] [address] Kary Perez CRNP [address] [place] [address] 05/17/2024 8:00 AM EDT Office Visit Pharmacy, [facility] [place] [address] [facility] [place] [address] 06/01/2024 10:00 AM EDT Office Visit Cardiology, [facility] [address] [place] [address] William Snider DO [address] [place] [address] 07/01/2024 9:16 AM EDT Hospital Encounter OR [facility], Operating Room, [facility] - 4th Floor [address] [place] [address] [place] [address] Marciano Lopez MD [address] [place] [address] 07/01/2024 9:16 AM EDT - 07/01/2024 9:52 AM EDT Surgery OR [facility], Operating Room, [facility] - 4th Floor [address] [place] [address] Marciano Lopez MD [address] [place] [address] COLONOSCOPY FLEXIBLE PROXIMAL DIAGNOSTIC 09/06/2024 11:00 AM EST Office Visit [place] [address] [address] [facility] [address] Nisa Goodrich PA-C [address] [place] [address] 09/08/2024 7:40 AM EST Office [facility] [address] [facility] [address] Alonso Daigle MD [address] [facility] [place] [address] 09/14/2024 8:45 AM EST Office Visit Orthopaedics Spine Surgery, [place] [address] [place] [address] Kleber Batres MD [address] [place] [address] Scheduled Procedures Name Priority Associated Diagnoses Date/Ti [...] history exists Colonoscopy 05/07/2028 05/07/2018, 01/2018, 01/13/2007 DTaP,Tdap,and Td Vaccines (4 - Td or Tdap) 04/09/2029 04/09/2019, 04/05/2011, 01/30/2010, Additional history exists Colorectal Cancer Screening 04/26/2029 Sigmoidoscopy 04/26/2029 04/23/2024 Hepatitis B Vaccine Completed 05/15/2016, 12/13/2015, [...] Procedure Name Priority Date/Time Associated Diagnosis Comments UPPER ENDOSCOPY, OUTSIDE PROCEDURE Routine 04/23/2024 documented in this encounter Results * UPPER ENDOSCOPY, OUTSIDE PROCEDURE (04/23/2024) 04/23/2024 History Per Patient GASTRO UPPER OUTSIDE LAB (SEE SCANNED REPORT) documented in this encounter Advance Directives * Full Code (Latest Code Status on File) Date Activated Date Inactivated Comments 07/05/2019 10:32 AM 07/05/2019 4:23 PM This order reflects the patients wishes and were consensually agreed upon. Care Teams Die Cast Die Maker Relationship Specialty Start Date End Date Nisa Goodrich PA-C [address] [place] [address] PCP - General Physician Stores Laborer 03/14/24 documented as of this encounter
--- OUTSIDE RECORDS SUMMARY | 2024-06-04 05:57 | External Medical Summary | Continuity of Care Document ---
Author Name Unknown Organization EXT [facility] [address] [facility] [address] [address] Address [address] [place], [place] [id number] [id number] Date[facility]s): 04/25/24 - 04/25/24 EXT [facility] [address] [place], [place] [id number] [place] Discharge Disposition: Home or Self Care Attending Physician: MD Jp, Wes Flores Referring Physician: MD Chandler, J[place] Social History Social History Type Response Sex Male Sex Representation Male (finding)
--- OUTSIDE RECORDS SUMMARY | 2024-06-04 05:58 | External Medical Summary | Summary of Care ---
Author Name Unknown Organization [facility] Address [address] [facility] [address] Phone [phone] Care Team Providers Care Disc Pad Grinder Name Role Phone Nisa Goodrich PA-C Primary Care Provider +1 -[phone] Encounter Details Date Type Department Care Team (Late st Contact Info) Description 04/26/2024 Orders Only [facility] [address] [place] [address] Nisa Goodrich PA-C [address] [place] [address] Allergies No known active allergiesdocumented [...] mRNA, LNP-s, No Pre serve, 2-Dose Series (tagUin) 07/30/2021,11/30/2020,11/09/2020 COVID-19, MRNA-LNP, 23-24, P F, 30 MCG/0.3 mL, 12 YRS AND ABOVE, IM (Komar Games-Comirnaty) 06/30/2023 Covid-19, Mrna, Lnp-s, Pf, B ivalent, 30 Mcg, IM, 12 yrs and above (tagUin) 06/20/2022 HEP A - Hepatitis A (Adult [...] Description 04/29/2024 10:40 AM EDT Office Visit [facility] [address] [facility] [address] Nisa Goodrich PA-C [address] [facility] [address] 05/12/2024 1:00 PM EDT Office Visit Gastroenterology, [facility] [address] [place] [address] Kary Perez CRNP [address] [place] [address] 05/17/2024 8:00 AM EDT Office Visit Pharmacy, [facility] [address] [facility] [place] [address] [facility] [place] [address] 06/01/2024 10:00 AM EDT Office Visit Cardiology, [facility] [address] [place] [address] William Snider DO [address] [place] [address] 07/01/2024 9:16 AM EDT Hospital Encounter OR [facility], Operating Room, [facility] - 4th Floor [address] [place] [address] [place] [address] Marciano Lopez MD [address] [place] [address] 07/01/2024 9:16 AM EDT - 07/01/2024 9:52 AM EDT Surgery OR [facility], Operating Room, [facility] - 4th Floor [address] [place] [address] Marciano Lopez MD [address] [place] [address] COLONOSCOPY FLEXIBLE PROXIMAL DIAGNOSTIC 09/06/2024 11:00 AM EST Office Visit [place] [address] [address] [facility] [address] Nisa Goodrich PA-C [address] [place] [address] 09/08/2024 7:40 AM EST Office Visit [facility] [address] [facility] [address] Alonso Daigle MD [address] [facility] [place] [address] 09/14/2024 8:45 AM EST Office Visit Orthopaedics Spine Surgery, [place] [address] [place] [address] Kleber Batres MD [address] [place] [address] Scheduled Procedures Name Priority Associated Diagnoses Date/Ti [...] Procedure Name Priority Date/Time Associated Diagnosis Comments SIGMOIDOSCOPY, OUTSIDE PROCEDURE Routine 04/23/2024 documented in this encounter Results * SIGMOIDOSCOPY, OUTSIDE PROCEDURE (04/23/2024) 04/23/2024 History Per Patient GASTRO LOWER OUTSIDE LAB (SEE SCANNED REPORT) documented in this encounter Advance Directives * Full Code (Latest Code Status on File) Date Activated Date Inactivated Comments 07/05/2019 10:32 AM 07/05/2019 4:23 PM This order reflects the patients wishes and were consensually agreed upon. Care Teams Disc Pad Grinder Relationship Specialty Start Date End Date Nisa Goodrich PA-C [address] [place] [address] PCP - General Physician Welder Fabricator 03/14/24 documented as of this encounter
--- OUTSIDE RECORDS SUMMARY | 2024-06-04 05:58 | External Medical Summary | Summary of Care ---
Author Name Unknown Organization [facility] Address [address] [facility] [place] [address] Phone [phone] Care Team Providers Care Farmer And Grazier Name Role Phone Nisa Goodrich PA-C Primary Care Provider [phone] Reason for Visit * Reason Onset Date Comments Information 04/21/2024 Encounter Details Date Type Department Care Team (Late st Contact Info) Description 04/21/2024 Telephone Cardiology, [facility] [address] [place] [address] Rosa Fajardo PA-C [address] [place] [address] Information Allergies No known active allergiesdocumented as of [...] mRNA, LNP-s, No Pre serve, 2-Dose Series ([employer] [facility]) 07/30/2021,11/30/2020,11/09/2020 COVID-19, MRNA-LNP, 23-24, P F, 30 MCG/0.3 mL, 12 YRS AND ABOVE, IM ([facility]) 06/30/2023 Covid-19, Mrna, Lnp-s, Pf, B ivalent, 30 Mcg, IM, 12 yrs and above ([employer] [facility]) 06/20/2022 HEP A - Hepatitis A (Adult [...] encounter Miscellaneous Notes * Telephone Encounter - Billie Horton LPN - 04/21/2024 12:31 PM EDT Spoke with pt by phone, was present. Relayed message regarding ER and rationale. Explained options between [facility] and [facility]. Pt agreeable and stated he will go to [facility] via the ER. Sending this note, most recent office visit note to triage at [facility] ER via fax. * Telephone Encounter - Rosa Fajardo PA-C - 04/21/2024 12:13 PM EDT Notes reviewed. Patient with several weeks of persistent GI bleeding. Hbg this morning trending down slightly. Discussed case with cardiac rehab staff. Patient with increased fatigue today and had one episode of chest pain, resolved quickly. No need for nitro. Given his ongoing issues with GI bleeding and worsening symptoms, would agree with recommendations to go to the ER for evaluation and sooner work up. [facility] Cardiology is located at both facilities ([facility] or [facility]) if needing assistance. And see GI notes about providers at each. * Telephone Encounter - Jerri Villeda CRNP - 04/21/2024 11:38 AM EDT I reviewed pt's chart and discussed his symptoms, cardiac medical hx with Dr. Daniel who recommendedpt to be admitted in the hospital for further workup of his GI bleed. Spoke w Billie Horton LPN and relayed the recs above. She will call the pt. Pt will be made aware that [facility] GI team no longer provides consultation service in [facility]. [facility] or [facility] GI team are available there. He may choose to go to [facility], where [facility] GI team is present for consults. [facility] * Telephone Encounter - Billie Horton LPN - 04/21/2024 10:10 AM EDT Spoke with pt by phone. Has not tried nitro, stated he almost did the other day but pain resolved. Pt complained of feeing tired and fatigued. Spoke with Marina BARRETT, she stated she will discuss with providers and schedulers and work on a sooner appointment. Pt will have repeat labs today. Orders placed. * Telephone Encounter - Rosa Fajardo PA-C - 04/21/2024 9:47 AM EDT Needs sooner GI evaluation if able. If not feeling well, ok to suspend rehab. Has he needed any SL nitro at home for chest pain? Repeat CBC this week * Telephone Encounter - Billie Horton LPN - 04/21/2024 9:36 AM EDT Aleks from cardiac rehab calling Pt reported still having rectal bleeding. Pt switched from brilinta to plavix. At cardiac rehab c/o chest pain, nothing concerning on monitor per RN. Had to stop exercise. BP systolic upon arrival 150, dropped to 108 with exercise, became dizzy/lightheaded. Returned to 120 at end of session. 03/22 3 day urgent GI/colonoscopy referral by PCP and 04/16 GI referral by cardiology. Pt was told first available is 06/02. Should pt be seen by GI sooner? Cardiac rehab also asking if sessions should be suspended until GI bleeding is address? documented in this encounter Plan of Treatment Upcoming Encounters Date Type Department Care Team (Late st Contact Info) Description 05/12/2024 1:00 PM EDT Office Visit Gastroenterology, [facility] [address] [place] [address] Kary Perez CRNP [address] [place] [address] 05/17/2024 8:00 AM EDT Office Visit Pharmacy, [facility] [address] [place] [address] [facility] [address] [place] [address] 06/01/2024 10:00 AM EDT Office Visit Cardiology, [facility] [address] [place] [address] William Snider DO [address] [place] [address] 07/01/2024 9:16 AM EDT Hospital Encounter OR [facility], Operating Room, [facility] - 4th Floor [address] [place] [id number] Marciano Lopez MD [address] [place] [address] 07/01/2024 9:16 AM EDT - 07/01/2024 9:52 AM EDT Surgery OR [facility], Operating Room, [facility] - 4th Floor [address] [place] [id number] Marciano Lopez MD [address] [place] [address] COLONOSCOPY FLEXIBLE PROXIMAL DIAGNOSTIC 09/06/2024 11:00 AM EST [address] [phone] Nisa Goodrich PA-C [address] [place] [address] 09/08/2024 7:40 AM EST Office [facility] [place] [address] [facility] [phone] Alonso Daigle MD [address] [place] [address] 09/14/2024 8:45 AM EST Office Visit Orthopaedics Spine Surgery, [facility] [address] [place] [address] Kleber Batres MD [address] [place] [address] Scheduled Procedures Name Priority Associated Diagnoses Date/Ti [...] of this encounter Results * (ABNORMAL) CBC (04/21/2024 [...] 11.1 fL 04/21/2024 10:53 AM EDT [facility] [place] [facility] 57-10 Blood Venous blood specimen / Unknown Venipuncture / Unknown 04/21/2024 10:41 AM EDT 04/21/2024 10:41 AM EDT Rosa Fajardo PA-C LAB BLOOD [facility] [place] 57-10 [address] [facility] [place] [address] documented in this encounter Visit Diagnoses Diagnosis Chest pain- Primary Chest pain, unspecified Blood in stool Blood in stool documented in this encounter Advance Directives * Full Code (Latest Code Status on File) Date Activated Date Inactivated Comments 07/05/2019 10:32 AM 07/05/2019 4:23 PM This order reflects the patients wishes and were consensually agreed upon. Care Teams Farmer And Grazier Relationship Specialty Start Date End Date Nisa Goodrich PA-C [address] [place] [address] PCP - General Physician [employer] Dispatcher 03/14/24 documented as of this encounter
[2024-06-04] MEDS: PANTOprazole 40 MG TAB PO SCH (06:08)
[2024-06-04 06:36] LABS: Basophils # (auto) 0.09 K/uL (0.00-0.20); Basophils % (auto) 1.4 %; Eosinophils # (auto) 0.35 K/uL (0.00-0.50); Eosinophils % (auto) 5.5 %; Hematocrit (blood only) 36.8 % (42.0-52.0); Hemoglobin 12.2 g/dl (14.0-18.0); Immature Granulocytes # (auto) 0.09 K/uL (0.01-0.20); Immature Granulocytes % (auto) 1.4 %; Lymphocytes # (auto) 1.73 K/uL (1.20-3.40); Lymphocytes % (auto) 27.3 %; Mean Corpuscular Hemoglobin 27.9 pg (25.0-34.0); Mean Corpuscular Hgb Conc 33.2 g/dL (32.0-36.0); Monocytes # (auto) 0.93 K/uL (0.11-0.59); Monocytes % (auto) 14.7 %; Neutrophils # (auto) 3.14 K/uL (1.40-6.50); Neutrophils % (auto) 49.7 %; Platelet Count 235 K/uL (130-400); RDW Coefficient of Variation 14.9 % (11.5-14.5); RDW Standard Deviation 45.6 fL (36.4-46.3); Red Blood Count 4.38 M/uL (4.70-6.10); White Blood Count 6.33 K/ul (4.8-10.8)
[2024-06-04 06:56] LABS: Albumin Globulin Ratio 1.7 (0.9-2); Bilirubin,Total 0.7 mg/dl (0.2-1.0); Calcium 8.8 mg/dl (8.6-10.3); Creatinine Clr Calc Pharmacy 80.8 ml/min; Globulin 2.3 gm/dl (2.5-4.0); Magnesium 1.8 mg/dl (1.7-2.4); Total Protein 6.3 gm/dl (6.0-8.3)
[2024-06-04] MEDS: CLOPIDOGREL BISULFATE 75 MG TAB PO SCH (08:30)
[2024-06-04] MEDS: EZETIMIBE 10 MG TAB PO SCH (08:31)
[2024-06-04] MEDS: FLUTICASONE PROPIONATE NA SPR 16 GM BTL SCH (08:32)
[2024-06-04] MEDS: OMEGA-3 (PURIFIED FISH OIL) 1 GM CAP PO SCH (08:32)
[2024-06-04] MEDS: METOPROLOL SUCC 25MG EXT REL TAB PO SCH (08:33)
[2024-06-04] MEDS: MAGNESIUM OXIDE 400 MG TAB PO SCH (08:33)
[2024-06-04] MEDS: MULTIVITAMIN TAB PO SCH (08:34)
[2024-06-04] MEDS: MONTELUKAST SODIUM 10 MG TABLET PO SCH (08:34)
[2024-06-04] MEDS: CEROVITE ADV FORMULA TAB PO SCH (08:35)
--- NOTE | 2024-06-04 09:03 | Cardiology Consultation ---
Date of Consultation June 04, 2024 Assessment & Plan (1) Chest pain: (2) CAD (coronary artery disease), [place] coronary artery: (3) Hypertension: (4) GI bleeding: Plan Patient readmitted after several days of waxing/waning chest pain. Patient with long history of atypical chest pain ultimately leading to cath in January 2024 where he received 1 drug-eluting stent to the LAD and findings of VIDEO GAME ENGINEER of the RCA with collaterals. Medical management recommended. Unfortunately post cath and LAD intervention, his chest pain symptoms failed to improve. He was treated with antianginals (isosorbide) causing worsening of his dizziness. this was discontinued. He does admit to exertional chest pain at times, relieved by rest. However, most of his symptoms occur at rest. He then developed GI bleeding with dual antiplatelet therapy and diagnosed with infectious colitis. Treated with antibiotics. He continues to have significant GI bleeding and GI related symptoms. He is scheduled for colonoscopy later this month. Hbg on admission was relatively stable at 13.5 and 12.2 this morning. He presented to ER with similar chest pains as in the past. EKG x2 without ischemic changes HS troponin negative x4 since admission. Recent outpatient cardiology evaluation, Ranexa was added and metoprolol increased to 25 mg daily. GIven hypertension on arrival, will add amlodipine 2.5 mg daily to aid wiht his chronic anginal complaints. His current chest pain at rest has been deemed non cardiac in the past. possibly GI related vs musculoskeletal in nature. Will continue to titrate antihypertensive therapies and anti anginal medications in the meantime. He should proceed with colonoscopy as scheduled. January cath films were to be sent to [facility]IDEO GAME ENGINEER clinic for review and possible future intervention. Further recommendations pending discussion and evaluation with Dr. Manning. I spent a total of 60 minutes on the date of service in preparation, delivery, and documentation of the care provided to this patient, excluding any time spent in the performance of separately billed services. Rosa Fajardo PA-C Department of Cardiology, [facility] This chart was completed in part utilizing Speech Voice Recognition Software. Grammatical errors, random word insertions, pronoun errors, and incomplete sentences are an occasional consequence of this system due to software limitations, ambient noise, and hardware issues. Any formal questions or concerns about the content, text, or information contained within the body of this dictation should be directly addressed to the provider for clarification. Supervising Physician Co-Signing Physician Notes Patient was seen and personally examined. Full assessment and plan as outlined above. Care and management personally discussed and endorsed Patient is a 68-year-old male with known coronary artery disease with prior coronary invention January 2024. 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 Patient to continue Ranexa and metoprolol dosing Patient to continue GI evaluation May be discharged on above medication I spent a total of 30 minutes on the date of service in preparation, delivery, and documentation of the care provided to this patient, excluding any time spent in the performance of separately billed services. This chart was completed in part utilizing Speech Voice Recognition Software. Grammatical errors, random word insertions, pronoun errors, and incomplete sentences are an occasional consequence of this system due to software limitations, ambient noise, and hardware issues. Any formal questions or concerns about the content, text, or information contained within the body of this dictation should be directly addressed to the provider for clarification. History of Present Illness Attending Physician: Jayson Baptiste MD History of Present Illness Patient is a 68 year old male who presented to ER with complaints of chest pain waxing/waning x12 hours. Recent visit with Dr. Snider several days ago. Due to chronic chest pain, metoprolol was increased 25 mg daily and Ranexa added. Consideration of intervention of the chronic total occlusion of the RCA also discussed. Patient has a long history of atypical chest pain, that failed to improve post cath. He has intermittent sharp/stabbing chest pain. Chest pain at rest. And exertional chest pain. He reports worsening chest pain at rest over the last several days. Waxes and wanes in regards to intensity. He tried taking 1 SL nitro for the pain, but provided no relief. Due to symptoms, he came to the ER for evaluation. On arrival, EKG demonstrated NSR with possilble old inferior infarct, no acute ischemic changes. No change from prior. HS troponin negative x4 since admission. Ongoing GI bleeding reported by patient. Having colonoscopy scheduled for next week as outpatient. At time of consult, patient resting in bed comfortably. Reports 3/10 chest pain, dull ache, consistent with his past complaints. No radiation or associated symptoms. Nitro has not eased his symptoms. Past medical history: 1. History of infectious colitis secondary to enterotoxigenic E.coli and norovirus, 04/2023 2. GI bleeding secondary to Internal Hemorrhoids and infectious colitis. Scheduled for colonoscopy 06/11/24 3. GERD 4. Coronary artery disease, status post AMY to the LAD 02/11/2024. VIDEO GAME ENGINEER of the RCA with collaterals. Med management recommended for RCA occlusion. Intolerant of isosorbide. a. Chronic chest pain 5. Hypertension 6. Hyperlipidemia 7. Diabetes 8. Cervical spondylosis Allergies Allergy/AdvReac Type Severity Reaction Status Date / Time No Known Allergies Allergy Unknown Verified 04/23/24 14:23 Home Medications Medication Instructions Recorded Confirmed Type aspirin 81 mg tablet,delayed 81 mg PO QDD 08/13/18 06/03/24 History release (Nga Low Dose Aspirin) atorvastatin 80 mg tablet 80 mg PO HS 08/13/18 06/03/24 History fexofenadine 180 mg tablet 180 mg PO QDD 08/13/18 06/03/24 History fluticasone propionate 50 2 spray intranasal QAM 08/13/18 06/03/24 History mcg/actuation nasal spray,suspension (Flonase Allergy Relief) multivitamin 1 tab PO QAM 08/13/18 06/03/24 History omega 5-tnd-slt-fish oil 1,000 mg 1 cap PO DAILY 08/13/18 06/03/24 History (120 mg-180 mg) capsule (Fish Oil) potassium gluconate 550 mg (90 mg) 550 mg PO QDD 08/13/18 06/03/24 History tablet diclofenac sodium 1 % topical gel 1 g topical QID 02/10/24 06/03/24 History (Voltaren Arthritis Pain) esomeprazole magnesium 20 mg 20 mg PO DAILYBB 02/10/24 06/03/24 History capsule,delayed release (Nexium) semaglutide 7 mg tablet (Rybelsus) 7 mg PO QAM 02/10/24 06/03/24 History vit C 250 mg-vit E 90 mg-zinc 40 1 tab PO BID 02/10/24 06/03/24 History mg-copper 1 di-wyxzfj-axyoav capsule (PreserVision AREDS-2) gabapentin 100 mg capsule 100 mg PO HS #30 caps 02/12/24 06/03/24 Rx clopidogrel 75 mg tablet 75 mg PO QAM 04/21/24 06/03/24 History ezetimibe 10 mg tablet 10 mg PO QAM 04/21/24 06/03/24 History metformin 1,000 mg tablet 1,000 mg PO BIDWMEAL 04/21/24 06/03/24 History montelukast 10 mg tablet 10 mg PO QAM 04/21/24 06/03/24 History pantoprazole 40 mg tablet,delayed 40 mg PO BID #60 tabs 04/27/24 06/03/24 Rx release magnesium 250 mg tablet 250 mg PO DAILY 06/03/24 06/03/24 History metoprolol succinate 25 mg 25 mg PO QAM 06/03/24 06/03/24 History tablet,extended release 24 hr ranolazine 500 mg tablet,extended 500 mg PO BID 06/03/24 06/03/24 History release,12 hr Patient History Medical History Finger avulsion middle right finger and reattached Non-insulin dependent type 2 diabetes mellitus Obesity (BMI 35.0-39.9 without comorbidity) Diabetes Seasonal allergies High cholesterol Surgical History Hx of colonoscopy Hx of hernia repair as child Social History Smoking Status: Never smoker Tobacco Type: Cigarettes Second Hand Exposure: No; Do You Dip or Chew Tobacco: No; Hx Alcohol Use: Yes Alcohol type: beer Hx Substance Use: No Preferred Language: Kyrgyz Communication Ability: Effective School Commissioner Required: No Beliefs That Will Affect Care: None Current Living Situation: Spouse Current Living Situation Comment: lives at home with Lindy 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 Feels Safe at Home: Yes Safety Concerns: Feels Safe At This Time Assistive Devices: Walker Review of Systems Review of Systems: All systems reviewed & are unremarkable except as noted in HPI & below Physical Exam Constitutional: WD/WN, vitals as above no acute distress Neck: + thick neck Respiratory: normal respiratory effort, lungs clear to auscultation Cardiovascular: Rate/Rhythm: regular rate and regular rhythm Heart Sounds: no murmur Vessels: no JVD Extremities: + edema (trace pretibial edema with venous stasis) Gastrointestinal (Abdomen): normal bowel sounds, soft, nontender, no hepatosplenomegaly Neurologic: PERRL, EOMI, accommodation nl, no face palsy, no dysarthria Psychiatric: A+Ox3, euthymic affect Results & Data Vital Signs (Past 12 Hours) Vital Signs Temp Pulse Pulse Resp BP BP Pulse Ox 06/04/24 07:53 36.4 C 69 20 116/71 94 06/04/24 03:12 36.6 C 78 16 112/63 95 06/03/24 23:30 06/03/24 23:13 36.3 C L 77 14 142/77 H 95 06/03/24 23:00 77 06/03/24 21:55 83 06/03/24 21:05 36.5 C 79 16 159/48 H 96 06/03/24 21:01 74 17 132/74 95 O2 Del Method 06/04/24 07:53 Room Air 06/04/24 03:12 Room Air 06/03/24 23:30 Room Air 06/03/24 23:13 Room Air 06/03/24 23:00 06/03/24 21:55 06/03/24 21:05 Room Air 06/03/24 21:01 Room Air Laboratory Results Cardiac Enzymes 06/03/24 06/03/24 06/04/24 Range/Units 14:54 17:55 00:57 AST 18 (13-39) U/L Troponin I High Sens 4.1 3.5 3.8 (0-20) pg/ml B-Natriuretic Peptide 27 (0-100) pg/ml 06/04/24 Range/Units 05:44 AST 15 (13-39) U/L Troponin I High Sens 3.8 (0-20) pg/ml B-Natriuretic Peptide (0-100) pg/ml Coagulation 06/03/24 06/03/24 Range/Units 14:54 17:55 PT 10.9 (9.0-12.0) Seconds APTT 28 (21-31) Seconds B-Natriuretic Peptide 27 (0-100) pg/ml CBC 06/03/24 06/04/24 Range/Units 14:54 05:44 WBC 6.49 6.33 (4.8-10.8) K/ul RBC 4.83 4.38 L (4.70-6.10) M/uL Hgb 13.5 L 12.2 L (14.0-18.0) g/dl Hct 41.0 L 36.8 L (42.0-52.0) % Plt Count 266 235 (130-400) K/uL Neut # (Auto) 3.56 3.14 (1.40-6.50) K/uL Lymph # (Auto) 1.74 1.73 (1.20-3.40) K/uL [place] # (Auto) 0.79 H 0.93 H (0.11-0.59) K/uL Eos # (Auto) 0.30 0.35 (0.00-0.50) K/uL Baso # (Auto) 0.08 0.09 (0.00-0.20) K/uL Comprehensive Metabolic Panel 06/03/24 06/04/24 Range/Units 14:54 05:44 Sodium 141 140 (136-145) mmol/L Potassium 4.3 4.0 (3.5-5.1) mmol/L Chloride 104 107 (98-107) mmol/L Carbon Dioxide 31 28 (21-32) mmol/L BUN 18 16 (6-23) mg/dl Creatinine 1.18 1.07 (0.6-1.4) mg/dl Glucose 110 H 100 H (70-99(Fasting)) mg/dl Calcium 9.7 8.8 (8.6-10.3) mg/dl AST 18 15 (13-39) U/L ALT 22 18 (7-52) U/L Alkaline Phosphatase 88 75 (34-104) U/L Total Protein 7.3 6.3 (6.0-8.3) gm/dl Albumin 4.6 4.0 (3.4-5.0) gm/dl Intake and Output 06/03/24 06/04/24 06/04/24 22:59 06:59 14:59 Other: # Unmeasured Voids 1 2 Weight 111.5 kg 110.6 kg Weight Measurement Method Standing Scale Built in [facility] Diagnostic Findings Telemetry reviewed: NSR in the 70-80's EKG reviewed from 06/03/24 at 14:55 PM: NSR with possible old inferior infarct. No ischemic ST abnormalities Repeat EKG reviewed from 06/04/24: NSR LAD No significant ST changes Chest X-Ray 06/03/24 14:48 SINGLE VIEW CHEST CLINICAL HISTORY: Atypical chest pain FINDINGS: A PA chest radiograph is compared to study dated 04/21/2024. The cardiomediastinal silhouette is normal for projection noting atherosclerotic calcification of the thoracic aorta. There is minimal bibasilar atelectasis. The lungs and pleural spaces are otherwise clear. No pneumothorax is seen. The bony thorax is grossly intact. IMPRESSION: No active disease in the chest. Prior echo reviewed from April 2024: Normal LVEF at 60-65% mild concentric LVH Small inferior wall motion abnormality with hypokinesis of the segments. No valvular disease Medications Administered Current Inpatient Medications Acetaminophen (Acetaminophen 325 Mg Tab) 650 mg PO Q4H PRN PRN Reason: Pain or Fever Stop: 07/03/24 21:21 Al Hydrox/Mg Hydrox/Simethicone (Aluminum/Magnesium Susp 30 Ml Udc) 15 ml PO Q4H PRN PRN Reason: Dyspepsia Stop: 07/03/24 21:21 Amlodipine Besylate (Amlodipine Besylate 5 Mg Tab) 2.5 mg PO QAM KAREN Stop: 07/04/24 10:29 Aspirin (Aspirin 81 Mg Ectab) 81 mg PO QDD KAREN Stop: 07/03/24 21:21 Last Admin: 06/03/24 22:13 Dose: 81 mg Atorvastatin Calcium (Atorvastatin 40 Mg Tab) 80 mg PO HS KAREN Stop: 07/03/24 21:21 Last Admin: 06/03/24 22:13 Dose: 80 mg Clopidogrel Bisulfate (Clopidogrel Bisulfate 75 Mg Tab) 75 mg PO QAM KAREN Stop: 07/04/24 08:59 Last Admin: 06/04/24 08:30 Dose: 75 mg Dextrose (Dextrose 50% 50 Ml Syringe) 25 - 50 ml IV UD PRN; Protocol PRN Reason: Hypoglycemia Protocol Stop: 07/03/24 21:21 Ezetimibe (Ezetimibe 10 Mg Tab) 10 mg PO QAM [facility] Stop: 07/04/24 08:59 Last Admin: 06/04/24 08:31 Dose: 10 mg Fexofenadine HCl (Fexofenadine Hcl 180 Mg Tab) 180 mg PO QDD [facility] Stop: 07/04/24 16:29 Fish Oil ([place]-3 (Purified Fish Oil) 1 Gm Cap) 1 cap PO DAILY KAREN Stop: 07/04/24 08:59 Last Admin: 06/04/24 08:32 Dose: 1 cap Fluticasone Propionate (Fluticasone Propionate Na Spr 16 Gm Btl) 2 sprays NA QAM KAREN Stop: 07/04/24 08:59 Last Admin: 06/04/24 08:32 Dose: 2 sprays Gabapentin (Gabapentin 100 Mg Cap) 100 mg PO HS [facility] Stop: 07/03/24 21:21 Last Admin: 06/03/24 22:13 Dose: 100 mg Glucagon (Glucagon For Inj 1 Mg Vial) 1 mg SQ UD PRN; Protocol PRN Reason: Hypoglycemia Protocol Stop: 07/03/24 21:21 Glucose (Glucose 40% Gel 15 Gm Tube) 15 - 30 gm PO UD PRN; Protocol PRN Reason: Hypoglycemia Protocol Stop: 07/03/24 21:21 Glucose (Glucose 10 Tab/Tube) 4 - 8 tab PO UD PRN; Protocol PRN Reason: Hypoglycemia Treatment Stop: 07/03/24 21:21 Heparin Sodium (Porcine) (Heparin Sod 5,000 Unit/0.5 Ml Vial) 5,000 units SQ Q8 KAREN Stop: 07/03/24 21:59 Last Admin: 06/04/24 06:09 Dose: 5,000 units Insulin Aspart (Insulin Aspart Per Unit Charge) 0 units SC ACHS KAREN Stop: 07/03/24 21:21 Last Admin: 06/03/24 22:14 Dose: 1 units Magnesium Oxide (Magnesium Oxide 400 Mg Tab) 200 mg PO DAILY KAREN Stop: 07/04/24 08:59 Last Admin: 06/04/24 08:33 Dose: 200 mg Metoprolol Succinate (Metoprolol Succ 25mg Ext Rel Tab) 25 mg PO QAM KAREN Stop: 07/04/24 08:59 Last Admin: 06/04/24 08:33 Dose: 25 mg Miscellaneous (Carbohydrates For Hypoglycemia ) 15 - 30 gm PO UD PRN PRN Reason: Hypoglycemia Protocol Stop: 07/03/24 21:21 Montelukast Sodium (Montelukast Sodium 10 Mg Tablet) 10 mg PO QAM [facility] Stop: 07/04/24 08:59 Last Admin: 06/04/24 08:34 Dose: 10 mg Morphine Sulfate (Morphine Sulfate 2 Mg/Ml [place]) 2 mg IV Q2H PRN PRN Reason: Pain Stop: 06/17/24 18:56 Last Admin: 06/04/24 01:13 Dose: 2 mg Multivitamins (Multivitamin Tab) 1 tab PO QAM KAREN Stop: 07/04/24 08:59 Last Admin: 06/04/24 08:34 Dose: 1 tab Multivitamins/Minerals (Cerovite Adv Formula Tab) 1 tab PO BID [facility] Stop: 07/04/24 08:59 Last Admin: 06/04/24 08:35 Dose: 1 tab Nitroglycerin (Nitroglycerin 2% Ointment 30gm Tube) 0.5 inch EXT Q6H [facility] Stop: 07/03/24 18:59 Last Admin: 06/04/24 06:09 Dose: 0.5 inch Ondansetron HCl (Ondansetron Inj 2 Mg/Ml 2 Ml Vial) 4 mg IV Q6H PRN PRN Reason: Nausea Stop: 07/03/24 21:21 Pantoprazole Sodium (Pantoprazole 40 Mg Tab) 40 mg PO DAILYBB [facility] Stop: 07/04/24 06:29 Last Admin: 06/04/24 06:08 Dose: 40 mg Pantoprazole Sodium (Pantoprazole 40 Mg Tab) 40 mg PO BID [facility] Stop: 07/03/24 21:21 Last Admin: 06/04/24 08:39 Dose: 40 mg Polyethylene Glycol (Polyethylene (Miralax) 17 Gm Pack) 17 gm PO DAILY PRN PRN Reason: Constipation Stop: 07/03/24 21:21 Ranolazine (Ranolazine 500 Mg Er Tab) 500 mg PO BID [facility] Stop: 07/03/24 21:21 Last Admin: 06/04/24 08:36 Dose: 500 mg (2) CAD (coronary artery disease), [place] coronary artery Associated angina: with stable angina [place] vs. transplanted heart: [place] heart Qualified Code(s): I25.118 - Atherosclerotic heart disease of [place] coronary artery with other forms of angina pectoris (3) Hypertension Hypertension type: primary hypertension Qualified Code(s): I10 - Essential (primary) hypertension (4) GI bleeding GI bleed type/associated pathology: unspecified gastrointestinal hemorrhage type Qualified Code(s): K92.2 - Gastrointestinal hemorrhage, unspecified
--- NOTE | 2024-06-04 09:48 | Gastrointestinal Consultation ---
Date of Consultation June 04, 2024 Assessment & Plan (1) Hematochezia: 68 year old male with a past medical history of T2DM, dyslipidemia, HTN, CAD s/p PCI of the LAD using a single AMY, osteoarthritis admitted through the ED w/ chest pain, painless rectal bleeding. He was recently admitted w/ bloody diarrhea - screening positive for both norovirus and enterotoxigenic ecoli. At that time he underwent EGD/Flex Sig which was largely unremarkable except for hemorrhoids and erythematous mucosa which was unremarkable on biopsy. The bleeding he describes is most consistent with hemorrhoidal bleeding. He tells me he has been using suppositories without relief of his bleeding. Continue supportive measures. He was agreeable to evaluation by general surgery or colorectal as an OP to discuss treatment options for this hemorrhoids. Trend H&H. Monitor and document GI output. Appreciate ongoing medical optimization and evaluation of his chest pain in anticipation of keeping his scheduled colonoscopy Friday with azuc[place] to rule out any other etiology of his rectal bleeding. I spent a total of 60 minutes on the date of service in review of patient's record, and previously obtained information in person and appropriate medical visit, discussion and education of plan, with patient and/or caregiver, placing orders for tests/referral/procedures as medically necessary and documentation of pertinent clinical information in patient's medical records for their visit today. Thank you for allowing us to participate in the care of this patient. Please call with any acute changes, questions or concerns. Please see addendum below with additional recommendation from my supervising physician. Supervising Physician Co-Signing Physician Notes I examined the patient and reviewed patient's chart , laboratory data and imaging studies. I agree with with assessment and plan of care as suggested by advanced practice provider History of Present Illness Reason for Consultation: rectal bleeding Requesting Physician: Jayson Baptiste MD Attending Physician: Jayson Baptiste MD History of Present Illness 68 year old male with a past medical history of T2DM, dyslipidemia, HTN, CAD s/p PCI of the LAD using a single AMY, osteoarthritis admitted through the ED w/ chest pain. GI was asked to evaluate for ongoing rectal bleeding. He was recently admitted w/ bloody diarrhea - screening positive for both norovirus and enterotoxigenic ecoli. At that time he underwent EGD/Flex Sig which was largely unremarkable except for hemorrhoids and erythematous mucosa which was unremarkable on biopsy. Suggests his diarrhea has resolved. He endorses 1-2 semi-formed bowel movements daily. The stools are brown. He has noted ongoing rectal bleeding w/ occasional clots which are on toilet tissue or in the toilet bowl water. No melena. He is scheduled for an outpatient colonoscopy Friday at [facility]. EGD 2023: Normal examined duodenum. - Normal esophagus. - No specimens collected. Flex Sig 2023: - Hemorrhoids found on perianal exam. - Internal hemorrhoids. - Erythematous and congested mucosa Biopsied. - Findings are non-specific but suggest infectious colitis. NO evidence of ischemic colitis or IBD Allergies Allergy/AdvReac Type Severity Reaction Status Date / Time No Known Allergies Allergy Unknown Verified 04/23/24 14:23 Home Medications Medication Instructions Recorded Confirmed Type aspirin 81 mg tablet,delayed 81 mg PO QDD 08/13/18 06/03/24 History release (Nga Low Dose Aspirin) atorvastatin 80 mg tablet 80 mg PO HS 08/13/18 06/03/24 History fexofenadine 180 mg tablet 180 mg PO QDD 08/13/18 06/03/24 History fluticasone propionate 50 2 spray intranasal QAM 08/13/18 06/03/24 History mcg/actuation nasal spray,suspension (Flonase Allergy Relief) multivitamin 1 tab PO QAM 08/13/18 06/03/24 History omega 7-sbd-agu-fish oil 1,000 mg 1 cap PO DAILY 08/13/18 06/03/24 History (120 mg-180 mg) capsule (Fish Oil) potassium gluconate 550 mg (90 mg) 550 mg PO QDD 08/13/18 06/03/24 History tablet diclofenac sodium 1 % topical gel 1 g topical QID 02/10/24 06/03/24 History (Voltaren Arthritis Pain) esomeprazole magnesium 20 mg 20 mg PO DAILYBB 02/10/24 06/03/24 History capsule,delayed release (Nexium) semaglutide 7 mg tablet (Rybelsus) 7 mg PO QAM 02/10/24 06/03/24 History vit C 250 mg-vit E 90 mg-zinc 40 1 tab PO BID 02/10/24 06/03/24 History mg-copper 1 kc-[id number]-acijwh capsule (PreserVision AREDS-2) gabapentin 100 mg capsule 100 mg PO HS #30 caps 02/12/24 06/03/24 Rx clopidogrel 75 mg tablet 75 mg PO QAM 04/21/24 06/03/24 History ezetimibe 10 mg tablet 10 mg PO QAM 04/21/24 06/03/24 History metformin 1,000 mg tablet 1,000 mg PO BIDWMEAL 04/21/24 06/03/24 History montelukast 10 mg tablet 10 mg PO QAM 04/21/24 06/03/24 History pantoprazole 40 mg tablet,delayed 40 mg PO BID #60 tabs 04/27/24 06/03/24 Rx release magnesium 250 mg tablet 250 mg PO DAILY 06/03/24 06/03/24 History metoprolol succinate 25 mg 25 mg PO QAM 06/03/24 06/03/24 History tablet,extended release 24 hr ranolazine 500 mg tablet,extended 500 mg PO BID 06/03/24 06/03/24 History release,12 hr Patient History Medical History Finger avulsion middle right finger and reattached Non-insulin dependent type 2 diabetes mellitus Obesity (BMI 35.0-39.9 without comorbidity) Diabetes Seasonal allergies High cholesterol Surgical History Hx of colonoscopy Hx of hernia repair as child Social History Smoking Status: Never smoker Tobacco Type: Cigarettes Second Hand Exposure: No; Do You Dip or Chew Tobacco: No; Hx Alcohol Use: Yes Alcohol type: beer Hx Substance Use: No Preferred Language: Singaporean Communication Ability: Effective Tennis Professional Required: No Beliefs That Will Affect Care: None Current Living Situation: Spouse Current Living Situation Comment: lives at home with Lindy 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 Physical Exam Constitutional: WD/WN, vitals as above Respiratory: normal respiratory effort Cardiovascular: Rate/Rhythm: regular rate and regular rhythm Gastrointestinal (Abdomen): normal bowel sounds, soft, nontender, no hepatosplenomegaly Skin: no rashes, warm and dry Results & Data Vital Signs (Past 12 Hours) Vital Signs Temp Pulse Pulse Resp BP Pulse Ox O2 Del Method 06/04/24 07:53 36.4 C 69 20 116/71 94 Room Air 06/04/24 03:12 36.6 C 78 16 112/63 95 Room Air 06/03/24 23:30 Room Air 06/03/24 23:13 36.3 C L 77 14 142/77 H 95 Room Air 06/03/24 23:00 77 06/03/24 21:55 83 Laboratory Results 06/04/24 06/04/24 06/04/24 Range/Units 07:36 05:44 00:57 WBC 6.33 (4.8-10.8) K/ul RBC 4.38 L (4.70-6.10) M/uL Hgb 12.2 L (14.0-18.0) g/dl Hct 36.8 L (42.0-52.0) % MCV 84.0 (80.0-100.0) fL MCH 27.9 (25.0-34.0) pg MCHC 33.2 (32.0-36.0) g/dL RDW Std Deviation 45.6 (36.4-46.3) fL RDW Coeff of Dragan 14.9 H (11.5-14.5) % Plt Count 235 (130-400) K/uL MPV 9.0 L (9.4-12.4) fL Immature Gran % (Auto) 1.4 % Neut % (Auto) 49.7 % Lymph % (Auto) 27.3 % [place] % (Auto) 14.7 % Eos % (Auto) 5.5 % Baso % (Auto) 1.4 % Neut # (Auto) 3.14 (1.40-6.50) K/uL Lymph # (Auto) 1.73 (1.20-3.40) K/uL [place] # (Auto) 0.93 H (0.11-0.59) K/uL Eos # (Auto) 0.35 (0.00-0.50) K/uL Baso # (Auto) 0.09 (0.00-0.20) K/uL Immature Gran # (Auto) 0.09 (0.01-0.20) K/uL PT (9.0-12.0) Seconds INR (0.9-1.1) APTT (21-31) Seconds PTT Ratio Sodium 140 (136-145) mmol/L Potassium 4.0 (3.5-5.1) mmol/L Chloride 107 (98-107) mmol/L Carbon Dioxide 28 (21-32) mmol/L Anion Gap 5 (3-11) BUN 16 (6-23) mg/dl Creatinine 1.07 (0.6-1.4) mg/dl Est Cr Clr Drug Dosing 80.8 eGFR 76.06 BUN/Creatinine Ratio 15.0 (10-20) Glucose 100 H (70-99(Fasting)) mg/dl POC Glucose 109 H (70-99) mg/dl Calcium 8.8 (8.6-10.3) mg/dl Magnesium 1.8 (1.7-2.4) mg/dl Total Bilirubin 0.7 (0.2-1.0) mg/dl AST 15 (13-39) U/L ALT 18 (7-52) U/L Alkaline Phosphatase 75 (34-104) U/L Troponin I High Sens 3.8 3.8 (0-20) pg/ml B-Natriuretic Peptide (0-100) pg/ml Total Protein 6.3 (6.0-8.3) gm/dl Albumin 4.0 (3.4-5.0) gm/dl Globulin 2.3 L (2.5-4.0) gm/dl Albumin/Globulin Ratio 1.7 (0.9-2) 06/03/24 06/03/24 06/03/24 Range/Units 21:51 17:55 14:54 WBC 6.49 (4.8-10.8) K/ul RBC 4.83 (4.70-6.10) M/uL Hgb 13.5 L (14.0-18.0) g/dl Hct 41.0 L (42.0-52.0) % MCV 84.9 (80.0-100.0) fL MCH 28.0 (25.0-34.0) pg MCHC 32.9 (32.0-36.0) g/dL RDW Std Deviation 45.4 (36.4-46.3) fL RDW Coeff of Dragan 14.9 H (11.5-14.5) % Plt Count 266 (130-400) K/uL MPV 8.9 L (9.4-12.4) fL Immature Gran % (Auto) 0.3 % Neut % (Auto) 54.9 % Lymph % (Auto) 26.8 % [place] % (Auto) 12.2 % Eos % (Auto) 4.6 % Baso % (Auto) 1.2 % Neut # (Auto) 3.56 (1.40-6.50) K/uL Lymph # (Auto) 1.74 (1.20-3.40) K/uL [place] # (Auto) 0.79 H (0.11-0.59) K/uL Eos # (Auto) 0.30 (0.00-0.50) K/uL Baso # (Auto) 0.08 (0.00-0.20) K/uL Immature Gran # (Auto) 0.02 (0.01-0.20) K/uL PT 10.9 (9.0-12.0) Seconds INR 1.0 (0.9-1.1) APTT 28 (21-31) Seconds PTT Ratio 1.0 Sodium 141 (136-145) mmol/L Potassium 4.3 (3.5-5.1) mmol/L Chloride 104 (98-107) mmol/L Carbon Dioxide 31 (21-32) mmol/L Anion Gap 6 (3-11) BUN 18 (6-23) mg/dl Creatinine 1.18 (0.6-1.4) mg/dl Est Cr Clr Drug Dosing Not Reportable eGFR 67.63 BUN/Creatinine Ratio 15.3 (10-20) Glucose 110 H (70-99(Fasting)) mg/dl POC Glucose 178 H (70-99) mg/dl Calcium 9.7 (8.6-10.3) mg/dl Magnesium (1.7-2.4) mg/dl Total Bilirubin 0.7 (0.2-1.0) mg/dl AST 18 (13-39) U/L ALT 22 (7-52) U/L Alkaline Phosphatase 88 (34-104) U/L Troponin I High Sens 3.5 4.1 (0-20) pg/ml B-Natriuretic Peptide 27 (0-100) pg/ml Total Protein 7.3 (6.0-8.3) gm/dl Albumin 4.6 (3.4-5.0) gm/dl Globulin 2.7 (2.5-4.0) gm/dl Albumin/Globulin Ratio 1.7 (0.9-2) PG Care Time/CCT Total # of Minutes Spent Total Time Spent with Patient: Total time spent is greater than 50% in coordination of care (as documented) at patient's floor/unit and/or counseling patient: Coding Level of Care Code 86960 INT INP/OBS CARE MIN Diagnoses Hematochezia K92.1
--- NOTE | 2024-06-04 10:41 | Electrocardiogram Report ---
Test Reason : Blood Pressure : */* mmHG Vent. Rate : 70 BPM Atrial Rate : 70 BPM P-R Int : 222 ms QRS Dur : 92 ms QT Int : 392 ms P-R-T Axes : 55 -58 2 degrees QTcB Int : 423 ms Sinus rhythm with 1st degree A-V block Left axis deviation Incomplete right bundle branch block Abnormal ECG When compared with ECG of 03-Jun-2024 14:55, Incomplete right bundle branch block is now Present Criteria for Inferior infarct are no longer Present Confirmed by Chacorta Whittington ([id number]) on 06/04/2024 10:41:02 AM Referred By: William Snider Confirmed By: Chacorta Whittington
--- NOTE | 2024-06-04 12:44 | Hospitalist Progress Note ---
Date of Service June 04, 2024 Assessment & Plan (1) Chest pain: Plan: This is a 68-year-old male who has a significant past medical history of CAD status post AMY to LAD February 11, 2024, HTN, HLD, T2DM, NSVT who presents to ED secondary to atypical chest pain. Atypical Chest Pain CAD - hx of AMY to LAD February 11, 2024 pt with intermitted atypical chest pain since stent insertion, intolerant to isosorbide metoprolol recently increased to Toprol XL 25mg daily and Ranexa 500mg bid added Pt with persistent chest pain over last 24 hrs trop negative (but when requiring stent placement trop also negative) trial nitro paste, prn IV morphine continue current regimen of metoprolol, asa, plavix, statin per Dr. Snider progress note from 06/03 possible discussion with interventional cardio at [facility] [place] regarding occluded RCA pt still reports lightheaded/dizziness upon standing Serial troponins have been negative and EKG remained unremarkable Ongoing symptoms of chest pain/discomfort and dizziness with standing and ambulation Appreciate cardiology input and recommendation for possible further intervention given ongoing symptoms The patient remains very anxious (2) Hematochezia: Plan: Rectal Bleeding pt hospitalized in april for rectal bleeding sigmoidoscopy consistent with infectious colititis, ETEC and norovirus s/p Azithromycin rectal bleeding still occurring despite Anusol, hgb stable consult GI for any further recs given pt unable to stop DAPT Appreciate GI input and recommendation- no intervention at this time He will have outpatient colonoscopy as soon as possible (3) CAD (coronary artery disease), [place] coronary artery: (4) Diabetes mellitus type 2 with complications: (5) Hypertension: (6) Obesity (BMI 35.0-39.9 without comorbidity): (7) High cholesterol: Plan HTN: chronic, stable, continue metoprolol, lisinopril recently d/c HLD: chronic, stable, continue statin T2DM: Last a1c 6.8, hold metformin/rybelsus; novolog per protocol DVT ppx: SQ Heparin FULL CODE PCP: [facility] Dispo: admit to PCU for further cardiac monitoring Pt was seen and examined in collaboration with Dr. Panchal, please see addendum I spent a total of 76 minutes minutes reviewing notes, outpatient records, labs, medication, coordinating, documenting and providing care for this patient excluding time spent in the performance of separately billed services. Admission and Anticipated Discharge Date Admission Date: June 03, 2024 Subjective 06/04/2024 The patient was seen and examined in telemetry unit He continues to have some chest discomfort and dizziness with standing and moving around Noted to have swelling of the legs as well Denies any nausea no vomiting, denies any fever and or chills Review of Systems Review of Systems: all systems reviewed and are unremarkable except as noted below Physical Exam Physical Exam: lying in bed without any acute distress but looks very anxious Constitutional: well developed, well nourished, + ill appearing and + obese Eyes: PERRL, conjunctivae normal, anicteric sclerae ENMT: external ear and nose normal, oropharynx normal Neck: trachea midline, no thyromegaly Respiratory: no respiratory distress Auscultation: lungs clear to auscultation bilaterally Cardiovascular: Rate/Rhythm: regular rate and regular rhythm; not tachycardic Heart Sounds: normal S1 and normal S2; no murmur Extremities: + edema ( 1+ edema bilaterally) Gastrointestinal (Abdomen): Inspection/Auscultation: normal bowel sounds; abdomen not distended Percussion/Palpation: abdomen soft; abdomen nontender Musculoskeletal: no acute arthritis involving any of the joint Neurologic: normal touch/pain/proprioception and moves all extremities; no focal motor deficits Psychiatric: A+Ox3, euthymic affect Lymphatic: no cervical or axillary lymphadenopathy Results & Data Results & Data Vital Signs (Past 12 Hours) Vital Signs Temp Pulse Resp BP Pulse Ox O2 Del Method 06/04/24 11:10 36.7 C 69 18 133/77 94 Room Air 06/04/24 07:53 36.4 C 69 20 116/71 94 Room Air 06/04/24 03:12 36.6 C 78 16 112/63 95 Room Air Laboratory Results Short CBC 06/03/24 06/04/24 Range/Units 14:54 05:44 WBC 6.49 6.33 (4.8-10.8) K/ul Hgb 13.5 L 12.2 L (14.0-18.0) g/dl Hct 41.0 L 36.8 L (42.0-52.0) % Plt Count 266 235 (130-400) K/uL BMP 06/03/24 06/04/24 14:54 05:44 Sodium 141 140 Potassium 4.3 4.0 Chloride 104 107 Carbon Dioxide 31 28 BUN 18 16 Creatinine 1.18 1.07 Glucose 110 H 100 H Calcium 9.7 8.8 Liver Function 06/03/24 06/04/24 Range/Units 14:54 05:44 Total Bilirubin 0.7 0.7 (0.2-1.0) mg/dl AST 18 15 (13-39) U/L ALT 22 18 (7-52) U/L Alkaline Phosphatase 88 75 (34-104) U/L Albumin 4.6 4.0 (3.4-5.0) gm/dl Medications Administered Current Inpatient Medications Acetaminophen (Acetaminophen 325 Mg Tab) 650 mg PO Q4H PRN PRN Reason: Pain or Fever Stop: 07/03/24 21:21 Al Hydrox/Mg Hydrox/Simethicone (Aluminum/Magnesium Susp 30 Ml Udc) 15 ml PO Q4H PRN PRN Reason: Dyspepsia Stop: 07/03/24 21:21 Amlodipine Besylate (Amlodipine Besylate 5 Mg Tab) 2.5 mg PO QAM [facility] Stop: 07/04/24 10:29 Aspirin (Aspirin 81 Mg Ectab) 81 mg PO QDD [facility] Stop: 07/03/24 21:21 Last Admin: 06/03/24 22:13 Dose: 81 mg Atorvastatin Calcium (Atorvastatin 40 Mg Tab) 80 mg PO HS [facility] Stop: 07/03/24 21:21 Last Admin: 06/03/24 22:13 Dose: 80 mg Clopidogrel Bisulfate (Clopidogrel Bisulfate 75 Mg Tab) 75 mg PO QAM [facility] Stop: 07/04/24 08:59 Last Admin: 06/04/24 08:30 Dose: 75 mg Dextrose (Dextrose 50% 50 Ml Syringe) 25 - 50 ml IV UD PRN; Protocol PRN Reason: Hypoglycemia Protocol Stop: 07/03/24 21:21 Ezetimibe (Ezetimibe 10 Mg Tab) 10 mg PO QAM [facility] Stop: 07/04/24 08:59 Last Admin: 06/04/24 08:31 Dose: 10 mg Fexofenadine HCl (Fexofenadine Hcl 180 Mg Tab) 180 mg PO QDD [facility] Stop: 07/04/24 16:29 Fish Oil ([place]-3 (Purified Fish Oil) 1 Gm Cap) 1 cap PO DAILY [facility] Stop: 07/04/24 08:59 Last Admin: 06/04/24 08:32 Dose: 1 cap Fluticasone Propionate (Fluticasone Propionate Na Spr 16 Gm Btl) 2 sprays NA QAM [facility] Stop: 07/04/24 08:59 Last Admin: 06/04/24 08:32 Dose: 2 sprays Gabapentin (Gabapentin 100 Mg Cap) 100 mg PO HS [facility] Stop: 07/03/24 21:21 Last Admin: 06/03/24 22:13 Dose: 100 mg Glucagon (Glucagon For Inj 1 Mg Vial) 1 mg SQ UD PRN; Protocol PRN Reason: Hypoglycemia Protocol Stop: 07/03/24 21:21 Glucose (Glucose 40% Gel 15 Gm Tube) 15 - 30 gm PO UD PRN; Protocol PRN Reason: Hypoglycemia Protocol Stop: 07/03/24 21:21 Glucose (Glucose 10 Tab/Tube) 4 - 8 tab PO UD PRN; Protocol PRN Reason: Hypoglycemia Treatment Stop: 07/03/24 21:21 Insulin Aspart (Insulin Aspart Per Unit Charge) 0 units SC ACHS [facility] Stop: 07/03/24 21:21 Last Admin: 06/03/24 22:14 Dose: 1 units Magnesium Oxide (Magnesium Oxide 400 Mg Tab) 200 mg PO DAILY [facility] Stop: 07/04/24 08:59 Last Admin: 06/04/24 08:33 Dose: 200 mg Metoprolol Succinate (Metoprolol Succ 25mg Ext Rel Tab) 25 mg PO QAM [facility] Stop: 07/04/24 08:59 Last Admin: 06/04/24 08:33 Dose: 25 mg Miscellaneous (Carbohydrates For Hypoglycemia ) 15 - 30 gm PO UD PRN PRN Reason: Hypoglycemia Protocol Stop: 07/03/24 21:21 Montelukast Sodium (Montelukast Sodium 10 Mg Tablet) 10 mg PO QAM [facility] Stop: 07/04/24 08:59 Last Admin: 06/04/24 08:34 Dose: 10 mg Morphine Sulfate (Morphine Sulfate 2 Mg/Ml [place]) 2 mg IV Q2H PRN PRN Reason: Pain Stop: 06/17/24 18:56 Last Admin: 06/04/24 01:13 Dose: 2 mg Multivitamins (Multivitamin Tab) 1 tab PO QAM [facility] Stop: 07/04/24 08:59 Last Admin: 06/04/24 08:34 Dose: 1 tab Multivitamins/Minerals (Cerovite Adv Formula Tab) 1 tab PO BID [facility] Stop: 07/04/24 08:59 Last Admin: 06/04/24 08:35 Dose: 1 tab Nitroglycerin (Nitroglycerin 2% Ointment 30gm Tube) 0.5 inch EXT Q6H KAREN Stop: 07/03/24 18:59 Last Admin: 06/04/24 06:09 Dose: 0.5 inch Ondansetron HCl (Ondansetron Inj 2 Mg/Ml 2 Ml Vial) 4 mg IV Q6H PRN PRN Reason: Nausea Stop: 07/03/24 21:21 Pantoprazole Sodium (Pantoprazole 40 Mg Tab) 40 mg PO DAILYBB [facility] Stop: 07/04/24 06:29 Last Admin: 06/04/24 06:08 Dose: 40 mg Pantoprazole Sodium (Pantoprazole 40 Mg Tab) 40 mg PO BID [facility] Stop: 07/03/24 21:21 Last Admin: 06/04/24 08:39 Dose: 40 mg Polyethylene Glycol (Polyethylene (Miralax) 17 Gm Pack) 17 gm PO DAILY PRN PRN Reason: Constipation Stop: 07/03/24 21:21 Ranolazine (Ranolazine 500 Mg Er Tab) 500 mg PO BID [facility] Stop: 07/03/24 21:21 Last Admin: 06/04/24 08:36 Dose: 500 mg (3) CAD (coronary artery disease), [place] coronary artery [place] vs. transplanted heart: [place] heart Associated angina: with stable angina Qualified Code(s): I25.118 - Atherosclerotic heart disease of [place] coronary artery with other forms of angina pectoris (5) Hypertension Hypertension type: primary hypertension Qualified Code(s): I10 - Essential (primary) hypertension
[2024-06-04] MEDS: amLODIPine BESYLATE 5 MG TAB PO SCH (13:51)
[2024-06-04] MEDS ORDERED: NON-FORMULARY MEDICATION (Potassium Gluconate 550 mg (90 mg) Tablet) PO SCH (16:30)
[2024-06-04] MEDS: FEXOFENADINE HCL 180 MG TAB PO SCH (16:30)
[2024-06-04] MEDS: MELATONIN 3 MG TAB PO PRN (21:42)
[2024-06-05 07:59] LABS: Basophils # (auto) 0.07 K/uL (0.00-0.20); Eosinophils # (auto) 0.31 K/uL (0.00-0.50); Eosinophils % (auto) 4.4 %; Hematocrit (blood only) 35.7 % (42.0-52.0); Hemoglobin 12.1 g/dl (14.0-18.0); Immature Granulocytes # (auto) 0.04 K/uL (0.01-0.20); Immature Granulocytes % (auto) 0.6 %; Lymphocytes % (auto) 15.6 %; Mean Corpuscular Hemoglobin 28.3 pg (25.0-34.0); Mean Corpuscular Hgb Conc 33.9 g/dL (32.0-36.0); Mean Corpuscular Volume 83.4 fL (80.0-100.0); Mean Platelet Volume 9.3 fL (9.4-12.4); Monocytes # (auto) 0.83 K/uL (0.11-0.59); Monocytes % (auto) 11.8 %; Neutrophils # (auto) 4.71 K/uL (1.40-6.50); Neutrophils % (auto) 66.6 %; Platelet Count 258 K/uL (130-400); RDW Coefficient of Variation 14.7 % (11.5-14.5); RDW Standard Deviation 44.9 fL (36.4-46.3); Red Blood Count 4.28 M/uL (4.70-6.10); White Blood Count 7.06 K/ul (4.8-10.8)
[2024-06-05 08:32] LABS: BUN Creatinine Ratio 15.8 (10-20); Calcium 8.9 mg/dl (8.6-10.3); Creatinine Clr Calc Pharmacy 62.2 ml/min; Magnesium 1.9 mg/dl (1.7-2.4); Potassium 4.2 mmol/L (3.5-5.1)
[2024-06-05 10:00] LABS: Prothrombin Time 11.3 Seconds (9.0-12.0)
--- NOTE | 2024-06-05 10:47 | Hospitalist Progress Note ---
Date of Service June 05, 2024 Assessment & Plan (1) Chest pain: Plan: This is a 68-year-old male who has a significant past medical history of CAD status post AMY to LAD February 11, 2024, HTN, HLD, T2DM, NSVT who presents to ED secondary to atypical chest pain. Atypical Chest Pain CAD - hx of AMY to LAD February 11, 2024 pt with intermitted atypical chest pain since stent insertion, intolerant to isosorbide metoprolol recently increased to Toprol XL 25mg daily and Ranexa 500mg bid added Pt with persistent chest pain over last 24 hrs trop negative (but when requiring stent placement trop also negative) trial nitro paste, prn IV morphine continue current regimen of metoprolol, asa, plavix, statin per Dr. Snider progress note from 06/03 possible discussion with interventional cardio at [facility] [place] regarding occluded RCA pt still reports lightheaded/dizziness upon standing Serial troponins have been negative and EKG remained unremarkable Ongoing symptoms of chest pain/discomfort and dizziness with standing and ambulation Appreciate cardiology input and recommendation for possible further intervention given ongoing symptoms The patient remains very anxious Denies any more chest pain and has been ambulating in the room and in the ramos llway without any problem He will be discharged home this afternoon (2) Hematochezia: Plan: Rectal Bleeding pt hospitalized in april for rectal bleeding sigmoidoscopy consistent with infectious colititis, ETEC and norovirus s/p Azithromycin rectal bleeding still occurring despite Anusol, hgb stable consult GI for any further recs given pt unable to stop DAPT Appreciate GI input and recommendation- no intervention at this time He will have outpatient colonoscopy as soon as possible No more bleeding from rectum and he will have outpatient colonoscopy next week (3) CAD (coronary artery disease), navajo coronary artery: (4) Diabetes mellitus type 2 with complications: (5) Hypertension: (6) Obesity (BMI 35.0-39.9 without comorbidity): (7) High cholesterol: Plan HTN: chronic, stable, continue metoprolol, lisinopril recently d/c HLD: chronic, stable, continue statin T2DM: Last a1c 6.8, hold metformin/rybelsus; novolog per protocol DVT ppx: SQ Heparin FULL CODE PCP: Pilo Dispo: admit to PCU for further cardiac monitoring Admission and Anticipated Discharge Date Admission Date: June 03, 2024 Subjective 06/04/2024 The patient was seen and examined in telemetry unit He continues to have some chest discomfort and dizziness with standing and moving around Noted to have swelling of the legs as well Denies any nausea no vomiting, denies any fever and or chills 06/05/2024 The patient was seen and examined in telemetry unit in presence of the daughter He has been complaining of some dizziness with ambulation Denies any more chest pain and/or palpitation and no shortness of breath He will be discharged home this afternoon Review of Systems Review of Systems: all systems reviewed and are unremarkable except as noted below Physical Exam Physical Exam: lying in bed without any acute distress but looks very anxious Constitutional: well developed, well nourished, + ill appearing and + obese Eyes: PERRL, conjunctivae normal, anicteric sclerae ENMT: external ear and nose normal, oropharynx normal Neck: trachea midline, no thyromegaly Respiratory: no respiratory distress Auscultation: lungs clear to auscultation bilaterally Cardiovascular: Rate/Rhythm: regular rate and regular rhythm; not tachycardic Heart Sounds: normal S1 and normal S2; no murmur Extremities: + edema ( 1+ edema bilaterally) Gastrointestinal (Abdomen): Inspection/Auscultation: normal bowel sounds; abdomen not distended Percussion/Palpation: abdomen soft; abdomen nontender Neurologic: normal touch/pain/proprioception and moves all extremities; no focal motor deficits Psychiatric: A+Ox3, euthymic affect Lymphatic: no cervical or axillary lymphadenopathy Results & Data Results & Data Vital Signs (Past 12 Hours) Vital Signs Temp Pulse Resp BP Pulse Ox O2 Del Method 06/05/24 07:20 36.8 C 78 18 120/68 93 Room Air 06/05/24 04:29 36.7 C 81 18 130/68 91 Room Air 06/04/24 23:00 36.5 C 76 28 H 108/61 92 Room Air Laboratory Results Short CBC 06/05/24 Range/Units 06:35 WBC 7.06 (4.8-10.8) K/ul Hgb 12.1 L (14.0-18.0) g/dl Hct 35.7 L (42.0-52.0) % Plt Count 258 (130-400) K/uL BMP 06/05/24 06:35 Sodium 138 Potassium 4.2 Chloride 104 Carbon Dioxide 30 BUN 22 Creatinine 1.39 D Glucose 141 H Calcium 8.9 Medications Administered Current Inpatient Medications Acetaminophen (Acetaminophen 325 Mg Tab) 650 mg PO Q4H PRN PRN Reason: Pain or Fever Stop: 07/03/24 21:21 Al Hydrox/Mg Hydrox/Simethicone (Aluminum/Magnesium Susp 30 Ml Udc) 15 ml PO Q4H PRN PRN Reason: Dyspepsia Stop: 07/03/24 21:21 Amlodipine Besylate (Amlodipine Besylate 5 Mg Tab) [facility] Stop: 07/04/24 10:29 Last Admin: 06/05/24 10:30 Dose: 2.5 mg Aspirin (Aspirin 81 Mg Ectab) 81 mg PO QDD COUNT INCLUDES [facility] Stop: 07/03/24 21:21 Last Admin: 06/04/24 16:30 Dose: 81 mg Atorvastatin Calcium (Atorvastatin 40 Mg Tab) 80 mg PO [facility] Stop: 07/03/24 21:21 Last Admin: 06/04/24 20:27 Dose: 80 mg Clopidogrel Bisulfate (Clopidogrel Bisulfate 75 Mg Tab) [facility] [place] Stop: 07/04/24 08:59 Last Admin: 06/05/24 08:57 Dose: 75 mg Dextrose (Dextrose 50% 50 Ml Syringe) 25 - 50 ml IV UD PRN; Protocol PRN Reason: Hypoglycemia Protocol Stop: 07/03/24 21:21 Ezetimibe (Ezetimibe 10 Mg Tab) [facility] [place] Stop: 07/04/24 08:59 Last Admin: 06/05/24 08:58 Dose: 10 mg Fexofenadine HCl (Fexofenadine Hcl 180 Mg Tab) 180 mg PO QDD COUNT INCLUDES [facility] Stop: 07/04/24 16:29 Last Admin: 06/04/24 16:30 Dose: 180 mg Fish Oil (Anson-3 (Purified Fish Oil) 1 Gm Cap) 1 cap PO DAILY COUNT INCLUDES THE [facility] Stop: 07/04/24 08:59 Last Admin: 06/05/24 08:57 Dose: 1 cap Fluticasone Propionate (Fluticasone Propionate Na Spr 16 Gm Btl) 2 sprays NA QAM COUNT INCLUDES THE [facility] Stop: 07/04/24 08:59 Last Admin: 06/05/24 08:58 Dose: 2 sprays Gabapentin (Gabapentin 100 Mg Cap) 100 mg PO [facility] Stop: 07/03/24 21:21 Last Admin: 06/04/24 20:27 Dose: 100 mg Glucagon (Glucagon For Inj 1 Mg Vial) 1 mg SQ UD PRN; Protocol PRN Reason: Hypoglycemia Protocol Stop: 07/03/24 21:21 Glucose (Glucose 40% Gel 15 Gm Tube) 15 - 30 gm PO UD PRN; Protocol PRN Reason: Hypoglycemia Protocol Stop: 07/03/24 21:21 Glucose (Glucose 10 Tab/Tube) 4 - 8 tab PO UD PRN; Protocol PRN Reason: Hypoglycemia Treatment Stop: 07/03/24 21:21 Insulin Aspart (Insulin Aspart Per Unit Charge) 0 units SC ACHS KAREN Stop: 07/03/24 21:21 Last Admin: 06/05/24 08:54 Dose: 2 units Magnesium Oxide (Magnesium Oxide 400 Mg Tab) 200 mg PO DAILY KAREN Stop: 07/04/24 08:59 Last Admin: 06/05/24 08:56 Dose: 200 mg Melatonin (Melatonin 3 Mg Tab) 6 mg PO HS PRN PRN Reason: Sleep Stop: 07/04/24 20:49 Last Admin: 06/04/24 21:42 Dose: 6 mg Metoprolol Succinate (Metoprolol Succ 25mg Ext Rel Tab) 25 mg PO QAM COUNT INCLUDES THE [facility] Stop: 07/04/24 08:59 Last Admin: 06/05/24 08:57 Dose: 25 mg Miscellaneous (Carbohydrates For Hypoglycemia ) 15 - 30 gm PO UD PRN PRN Reason: Hypoglycemia Protocol Stop: 07/03/24 21:21 Montelukast Sodium (Montelukast Sodium 10 Mg Tablet) 10 mg PO QAM COUNT INCLUDES THE [facility] Stop: 07/04/24 08:59 Last Admin: 06/05/24 08:58 Dose: 10 mg Morphine Sulfate (Morphine Sulfate 2 Mg/Ml Carp) 2 mg IV Q2H PRN PRN Reason: Pain Stop: 06/17/24 18:56 Last Admin: 06/04/24 01:13 Dose: 2 mg Multivitamins (Multivitamin Tab) 1 tab PO QAM COUNT INCLUDES [facility] Stop: 07/04/24 08:59 Last Admin: 06/05/24 08:58 Dose: 1 tab Multivitamins/Minerals (Cerovite Adv Formula Tab) 1 tab PO BID COUNT INCLUDES [facility] Stop: 07/04/24 08:59 Last Admin: 10/05/24 08:58 Dose: 1 tab Nitroglycerin (Nitroglycerin 2% Ointment 30gm Tube) 0.5 inch EXT Q6H KAREN Stop: 07/03/24 18:59 Last Admin: 06/05/24 06:19 Dose: 0.5 inch Ondansetron HCl (Ondansetron Inj 2 Mg/Ml 2 Ml Vial) 4 mg IV Q6H PRN PRN Reason: Nausea Stop: 07/03/24 21:21 Pantoprazole Sodium (Pantoprazole 40 Mg Tab) 40 mg PO DAILYBB COUNT INCLUDES THE [facility] Stop: 07/04/24 06:29 Last Admin: 06/05/24 06:19 Dose: 40 mg Pantoprazole Sodium (Pantoprazole 40 Mg Tab) 40 mg PO BID COUNT INCLUDES THE [facility] Stop: 07/03/24 21:21 Last Admin: 06/05/24 08:58 Dose: 40 mg Polyethylene Glycol (Polyethylene (Miralax) 17 Gm Pack) 17 gm PO DAILY PRN PRN Reason: Constipation Stop: 07/03/24 21:21 Ranolazine (Ranolazine 500 Mg Er Tab) 500 mg PO BID COUNT INCLUDES [facility] Stop: 07/03/24 21:21 Last Admin: 06/05/24 08:58 Dose: 500 mg (3) CAD (coronary artery disease), [place] coronary artery Associated angina: with stable angina [place] vs. transplanted heart: [place] heart Qualified Code(s): I25.118 - Atherosclerotic heart disease of [place]ajo coronary artery with other forms of angina pectoris (5) Hypertension Hypertension type: primary hypertension Qualified Code(s): I10 - Essential (primary) hypertension
--- OUTSIDE RECORDS SUMMARY | 2024-06-05 11:33 | External Medical Summary | Summary of Care ---
Author Name Unknown Organization [facility] Address [address] [facility] [place] [address] Phone [phone] Care Team Providers Care Glaze Supervisor Name Role Phone Nisa Goodrich PA-C Primary Care Provider [phone] Reason for Visit * Reason Onset Date Comments Advice 06/03/2024 Encounter Details Date Type Department Care Team (Late st Contact Info) Description 06/03/2024 Telephone Cardiology, [facility] [address] [place] [address] William Snider, [address] [place] [address] Advice Allergies No known active allergiesdocumented as of this encounter (statuses as of 06/03/2024) Medications Medication Sig Dispensed Refills Start Date [...] Additional Information Patient not taking.Reported on 06/01/2024 Smart Hydro Power 2 w/Device Kit Use as directed. Use to test blood sugar E11.9 1 Kit 05/17/2024 Active Saunders SolutionsTouch Ultra In Vitro Strip (Glucose Blood) Use [...] as of this encounter (statuses as of 06/03/2024) Active Problems Problem Noted Date Diagnosed Date [...] as of this encounter (statuses as of 06/03/2024) Resolved Problems Problem Noted Date Diagnosed Date [...] as of this encounter (statuses as of 06/03/2024) Immunizations Name Administration Dates Next Due COVID-19 mRNA, LNP-s, No Pre serve, 2-Dose Series (Dymant) 07/30/2021,11/30/2020,11/09/2020 COVID-19, MRNA-LNP, 23-24, P F, 30 MCG/0.3 mL, 12 YRS AND ABOVE, IM (PFIZER-Comirnaty) 06/30/2023 COVID-19, MRNA-LNP, 24-25, P R, 30MCG/0.3ML, IM, 12YRS AND ABOVE (Pfizer-Comirnaty) 06/30/2023 Covid-19, Mrna, Lnp-s, Pf, B ivalent, 30 Mcg, IM, 12 yrs and above (Dymant) 06/20/2022 HEP A - Hepatitis A (Adult > 18 yrs) 02/16/2010, 09/15/2009 Hepatitis B, 20+ yrs 05/15/2016,12/13/2015,11/07 Pneumococcal Conjugate Vacci ne, 20-valent ([id number]) 05/10/2024 Pneumococcal Polysaccharide PPV23 (Pneumovax) 07/30/2021,09/12/2011 Season [...] No 05/19/2024 Does the household have a [facility] [[email or web address]]lar source of income? (Household - for ages [...] Miscellaneous Notes * Telephone Encounter - Derrell Prajapati LPN - 06/03/2024 1:56 PM EDT Called and made patient aware. Faxed notes to [facility] to make aware. * Telephone Encounter - William Snider DO - 06/03/2024 1:35 PM EDT Recommend ER evaluation for repeat ECG and assessment of high sensitivity troponin. * Telephone Encounter - Erica Jaquez CMA - 06/03/2024 8:58 AM EDT Patient called into clinic to report two episodes of chest pain, which occurred yesterday evening. The first episode occurred around 9:00 pm. Patient states he had "minor chest pain" that lasted about 30 minutes. He did not take any nitroglycerin for this episode, but instead rested in his recliner until the pain subsided. BP: 145/80 The second episode occurred around midnight and woke him from sleep. This time the pain was more severe and radiated down both arms. He also felt lightheaded, dizzy, and nauseous. He did take 1 SL NTG at this time and sat in his recliner with his feet elevated. He states the second episode lasted approximately 1 hour. Patient did not repeat any doses of nitroglycerin. BP: 155/87 HR: 87 Patient did begin taking Ranexa Friday evening and the increased dose of metoprolol Friday morning. Denies any further episodes of chest pain but states he feels like he "got hit by a truck" this morning. He also c/o a headache, for which he is taking Tylenol. Patient took vitals this morning priorto medications. BP: 146/80 P: 80 T: 98.8 documented in this encounter Plan of Treatment Upcoming Encounters Date Type Department Care Team (Late st Contact Info) Description 06/08/2024 9:30 AM EDT Scheduled Telephone Care Coordination and Integration [address] [place] [address] Aleah Rock, [facility] [employer] [address] [place] [address] 06/11/2024 10:11 AM EDT Hospital Encounter OR [facility], Operating Room, [facility]th [facility] [address] [place] [address] Cheri Amaya, DO [address] [place] [address] 06/11/2024 10:11 AM EDT - 06/11/2024 10:51 AM EDT Surgery OR GL, Operating Room, [facility] - 4th Floor [address] [facility] [place] [phone] Cheri Amaya, DO [address] [place] [address] COLONOSCOPY FLEXIBLE PROXIMAL DIAGNOSTIC 06/16/2024 11:20 AM EDT Office Visit [facility] [address] [facility], [place] [phone] Nisa Goodrich PA-C [address] [facility] [place] [address] 06/21/2024 11:00 AM EDT Office Visit Gastroenterology, [facility] [address] [place] [address] Kary Perez CRNP [address] [place] [address] 07/13/2024 10:00 AM EST Office Visit Cardiology, [facility] [address] [place] [address] William Snider, DO [address] [place] [address] 08/16/2024 8:00 AM EST Office Visit Pharmacy, [facility] [address] [place] [address] [place] [facility] [address] [place] [address] 09/06/2024 11:00 AM EST Office Visit [facility] [address] [facility], [place] [phone] Nisa Goodrich PA-C [address] [facility], [place] [address] 09/08/2024 7:40 AM EST Office Visit [facility] [place] [address] [facility], [place] [phone] Alonso Daigle MD [address] [facility], [place] [address] 09/14/2024 8:45 AM EST Office Visit [facility]ics Sp[facility], [facility] [address] [place] [address] Kleber Batres MD [address] [place] [address] Scheduled Procedures Name Priority Associated Diagnoses Date/Ti me COLONOSCOPY FLEXIBLE PROXIMA L DIAGNOSTIC Recall Blood in stool 06/11/2024 10:11 AM EDT ARTHRODESIS, ANT INTERBODY, BELOW C-2 [...] 02/09/2021, Additional history exists HbA1c 11/17/2024 05/20/2024, 1 03/2024, 01/16/2024, Additional history exists GFR 05/12/2025 05/12/2024, [...] and were consensually agreed upon. Care Teams Glaze Supervisor Relationship Specialty Start Date End Date Nisa Goodrich PA-C [address] [facility] [place] [address] PCP - General Physician Rum Processing Operator 03/14/24 documented as of this encounter
[2024-06-05] MEDS: NITROGLYCERIN SL 0.4 MG/TAB TAB SL ONE (12:56)
[2024-06-05] MEDS: NITROGLYCERIN SL 0.4 MG/TAB TAB ONE (13:02)
[2024-06-05] MEDS: ACETAMINOPHEN 325 MG TAB PO PRN (13:34)
[2024-06-06 07:15] VITALS: PULSE 70
[2024-06-06 07:40] VITALS: TEMP 97.8
[2024-06-06 10:29] VITALS: BP 142/79; RESP 16; O2SAT 94
--- NOTE | 2024-06-06 10:41 | Hospitalist Progress Note ---
Date of Service June 06, 2024 Assessment & Plan (1) Chest pain: Plan: This is a 68-year-old male who has a significant past medical history of CAD status post AMY to LAD February 11, 2024, HTN, HLD, T2DM, NSVT who presents to ED secondary to atypical chest pain. Atypical Chest Pain CAD - hx of AMY to LAD February 11, 2024 pt with intermitted atypical chest pain since stent insertion, intolerant to isosorbide metoprolol recently increased to Toprol XL 25mg daily and Ranexa 500mg bid added Pt with persistent chest pain over last 24 hrs trop negative (but when requiring stent placement trop also negative) trial nitro paste, prn IV morphine continue current regimen of metoprolol, asa, plavix, statin per Dr. Snider progress note from 06/03 possible discussion with interventional cardio at [facility] [place] regarding occluded RCA pt still reports lightheaded/dizziness upon standing Serial troponins have been negative and EKG remained unremarkable Ongoing symptoms of chest pain/discomfort and dizziness with standing and ambulation Appreciate cardiology input and recommendation for possible further intervention given ongoing symptoms The patient remains very anxious Denies any more chest pain and has been ambulating in the room and in the ramos llway without any problem Complaint to have dizziness with ambulation last evening and the patient did not go home Does not have any symptoms since this morning Does not have any orthostatic changes He was advised to walk around with the nurse in the hallway before going home this afternoon (2) Hematochezia: Plan: Rectal Bleeding pt hospitalized in april for rectal bleeding sigmoidoscopy consistent with infectious colititis, ETEC and norovirus s/p Azithromycin rectal bleeding still occurring despite Anusol, hgb stable consult GI for any further recs given pt unable to stop DAPT Appreciate GI input and recommendation- no intervention at this time He will have outpatient colonoscopy as soon as possible No more bleeding from rectum and he will have outpatient colonoscopy next week (3) CAD (coronary artery disease), [place] coronary artery: (4) Diabetes mellitus type 2 with complications: (5) Hypertension: (6) Obesity (BMI 35.0-39.9 without comorbidity): (7) High cholesterol: Plan HTN: chronic, stable, continue metoprolol, lisinopril recently d/c HLD: chronic, stable, continue statin T2DM: Last a1c 6.8, hold metformin/rybelsus; novolog per protocol DVT ppx: SQ Heparin FULL CODE PCP: [facility] Dispo: admit to PCU for further cardiac monitoring likely discharge this afternoon Admission and Anticipated Discharge Date Admission Date: June 03, 2024 Subjective 06/04/2024 The patient was seen and examined in telemetry unit He continues to have some chest discomfort and dizziness with standing and moving around Noted to have swelling of the legs as well Denies any nausea no vomiting, denies any fever and or chills 06/05/2024 The patient was seen and examined in telemetry unit in presence of the daughter He has been complaining of some dizziness with ambulation Denies any more chest pain and/or palpitation and no shortness of breath He will be discharged home this afternoon 06/06/2024 The patient was seen and examined in telemetry unit in presence of the He has been feeling much better and denies any symptoms of dizziness with ambulation He does not have any orthostatic changes He will be walking around the hallway and if there is no symptoms he will be discharged home this afternoon Review of Systems Review of Systems: all systems reviewed and are unremarkable except as noted below Physical Exam Physical Exam: lying in bed without any acute distress but looks very anxious Constitutional: well developed, well nourished, + ill appearing and + obese Eyes: PERRL, conjunctivae normal, anicteric sclerae ENMT: external ear and nose normal, oropharynx normal Neck: trachea midline, no thyromegaly Respiratory: no respiratory distress Auscultation: lungs clear to auscultation bilaterally Cardiovascular: Rate/Rhythm: regular rate and regular rhythm; not tachycardic Heart Sounds: normal S1 and normal S2; no murmur Extremities: + edema ( 1+ edema bilaterally) Gastrointestinal (Abdomen): Inspection/Auscultation: normal bowel sounds; abdomen not distended Percussion/Palpation: abdomen soft; abdomen nontender Neurologic: normal touch/pain/proprioception and moves all extremities; no focal motor deficits Psychiatric: A+Ox3, euthymic affect Lymphatic: no cervical or axillary lymphadenopathy Results & Data Results & Data Vital Signs (Past 12 Hours) Vital Signs Temp Pulse Pulse Resp BP Pulse Ox O2 Del Method 06/06/24 10:28 36.6 C 70 16 142/79 H 94 Room Air 06/06/24 07:38 36.6 C 96 Room Air 06/06/24 07:15 70 06/06/24 03:40 36.5 C 71 18 112/65 92 Room Air 06/05/24 23:10 36.3 C L 70 18 137/71 94 Room Air Medications Administered Current Inpatient Medications Acetaminophen (Acetaminophen 325 Mg Tab) 650 mg PO Q4H PRN PRN Reason: Pain or Fever Stop: 07/03/24 21:21 Last Admin: 06/05/24 17:23 Dose: 650 mg Al Hydrox/Mg Hydrox/Simethicone (Aluminum/Magnesium Susp 30 Ml Udc) 15 ml PO Q4H PRN PRN Reason: Dyspepsia Stop: 07/03/24 21:21 Amlodipine Besylate (Amlodipine Besylate 5 Mg Tab) [facility] Stop: 07/04/24 10:29 Last Admin: 06/06/24 08:39 Dose: 2.5 mg Aspirin (Aspirin 81 Mg Ectab) 81 mg PO QDD [facility] [place] Stop: 07/03/24 21:21 Last Admin: 06/05/24 17:24 Dose: 81 mg Atorvastatin Calcium (Atorvastatin 40 Mg Tab) 80 mg PO HS [facility] [place] Stop: 07/03/24 21:21 Last Admin: 06/05/24 21:10 Dose: 80 mg Clopidogrel Bisulfate (Clopidogrel Bisulfate 75 Mg Tab) [facility] [place] Stop: 07/04/24 08:59 Last Admin: 06/06/24 08:40 Dose: 75 mg Dextrose (Dextrose 50% 50 Ml Syringe) 25 - 50 ml IV UD PRN; Protocol PRN Reason: Hypoglycemia Protocol Stop: 07/03/24 21:21 Ezetimibe (Ezetimibe 10 Mg Tab) [facility] [place] Stop: 07/04/24 08:59 Last Admin: 06/06/24 08:40 Dose: 10 mg Fexofenadine HCl (Fexofenadine Hcl 180 Mg Tab) 180 mg PO QDD [facility] [place] Stop: 07/04/24 16:29 Last Admin: 06/05/24 17:24 Dose: 180 mg Fish Oil ([place]-3 (Purified Fish Oil) 1 Gm Cap) 1 cap PO DAILY KAREN Stop: 07/04/24 08:59 Last Admin: 06/06/24 08:39 Dose: Not Given Fluticasone Propionate (Fluticasone Propionate Na Spr 16 Gm Btl) 2 sprays NA QAM [facility] [place] Stop: 07/04/24 08:59 Last Admin: 06/06/24 08:40 Dose: 2 sprays Gabapentin (Gabapentin 100 Mg Cap) 100 mg PO HS [facility] [place] Stop: 07/03/24 21:21 Last Admin: 06/05/24 21:10 Dose: 100 mg Glucagon (Glucagon For Inj 1 Mg Vial) 1 mg SQ UD PRN; Protocol PRN Reason: Hypoglycemia Protocol Stop: 07/03/24 21:21 Glucose (Glucose 40% Gel 15 Gm Tube) 15 - 30 gm PO UD PRN; Protocol PRN Reason: Hypoglycemia Protocol Stop: 07/03/24 21:21 Glucose (Glucose 10 Tab/Tube) 4 - 8 tab PO UD PRN; Protocol PRN Reason: Hypoglycemia Treatment Stop: 07/03/24 21:21 Insulin Aspart (Insulin Aspart Per Unit Charge) 0 units SC ACHS [facility] [place] Stop: 07/03/24 21:21 Last Admin: 06/06/24 08:35 Dose: 3 units Magnesium Oxide (Magnesium Oxide 400 Mg Tab) 200 mg PO DAILY KAREN Stop: 07/04/24 08:59 Last Admin: 06/06/24 08:36 Dose: 200 mg Melatonin (Melatonin 3 Mg Tab) 6 mg PO HS PRN PRN Reason: Sleep Stop: 07/04/24 20:49 Last Admin: 06/05/24 21:20 Dose: 6 mg Metoprolol Succinate (Metoprolol Succ 25mg Ext Rel Tab) 25 mg PO QAM [facility] [place] Stop: 07/04/24 08:59 Last Admin: 06/06/24 08:40 Dose: 25 mg Miscellaneous (Carbohydrates For Hypoglycemia ) 15 - 30 gm PO UD PRN PRN Reason: Hypoglycemia Protocol Stop: 07/03/24 21:21 Montelukast Sodium (Montelukast Sodium 10 Mg Tablet) 10 mg PO QAM [facility] [place] Stop: 07/04/24 08:59 Last Admin: 06/06/24 08:39 Dose: 10 mg Morphine Sulfate (Morphine Sulfate 2 Mg/Ml [place]) 2 mg IV Q2H PRN PRN Reason: Pain Stop: 06/17/24 18:56 Last Admin: 06/05/24 12:49 Dose: 2 mg Multivitamins (Multivitamin Tab) 1 tab PO QAM [facility] [place] Stop: 07/04/24 08:59 Last Admin: 06/06/24 08:40 Dose: 1 tab Multivitamins/Minerals (Cerovite Adv Formula Tab) 1 tab PO BID [facility] [place] Stop: 07/04/24 08:59 Last Admin: 06/06/24 08:40 Dose: 1 tab Nitroglycerin (Nitroglycerin 2% Ointment 30gm Tube) 0.5 inch EXT Q6H KAREN Stop: 07/03/24 18:59 Last Admin: 06/06/24 06:25 Dose: 0.5 inch Ondansetron HCl (Ondansetron Inj 2 Mg/Ml 2 Ml Vial) 4 mg IV Q6H PRN PRN Reason: Nausea Stop: 07/03/24 21:21 Pantoprazole Sodium (Pantoprazole 40 Mg Tab) 40 mg PO DAILYBB [facility] [place] Stop: 07/04/24 06:29 Last Admin: 06/06/24 06:25 Dose: 40 mg Pantoprazole Sodium (Pantoprazole 40 Mg Tab) 40 mg PO BID [facility] [place] Stop: 07/03/24 21:21 Last Admin: 06/06/24 08:40 Dose: 40 mg Polyethylene Glycol (Polyethylene (Miralax) 17 Gm Pack) 17 gm PO DAILY PRN PRN Reason: Constipation Stop: 07/03/24 21:21 Ranolazine (Ranolazine 500 Mg Er Tab) 500 mg PO BID [facility] [place] Stop: 07/03/24 21:21 Last Admin: 06/06/24 08:40 Dose: 500 mg (3) CAD (coronary artery disease), [place] coronary artery [place] vs. transplanted heart: [place] heart Associated angina: with stable angina Qualified Code(s): I25.118 - Atherosclerotic heart disease of [place] coronary artery with other forms of angina pectoris (5) Hypertension Hypertension type: primary hypertension Qualified Code(s): I10 - Essential (primary) hypertension
--- NOTE | 2024-06-07 14:19 | Electrocardiogram Report ---
Test Reason : Blood Pressure : */* mmHG Vent. Rate : 81 BPM Atrial Rate : 81 BPM P-R Int : 226 ms QRS Dur : 108 ms QT Int : 396 ms P-R-T Axes : 59 -54 39 degrees QTcB Int : 460 ms Sinus rhythm with 1st degree A-V block Left axis deviation Abnormal ECG When compared with ECG of 04-Jun-2024 05:52, Criteria for Septal infarct are no longer Present Confirmed by Hernandez Dumont ([id number]) on 06/07/2024 2:18:53 PM Referred By: William Snider Confirmed By: Hernandez Dumont
--- NOTE | 2024-06-07 23:07 | Discharge Summary ---
Date of Service June 07, 2024 Admission HPI Per Admitting Provider This is a 68-year-old male who has a significant past medical history of CAD status post AMY to LAD February 11, 2024, HTN, HLD, T2DM, NSVT who presents to ED secondary to atypical chest pain. Of significance patient was admitted to [facility] on 04/21/2024 due to rectal bleeding with hemoglobin down to 11.7. He underwent sigmoidoscopy which revealed findings suggestive of infectious colitis. Stool studies tested positive for ETEC and norovirus. He was treated with a course of azithromycin. At discharge hemoglobin was 13.1. He recently had follow-up with cardiology on June 01. At that appointment he reported positional dizziness and orthostatic symptoms. He also reported chest heaviness when he, "overdoes it." He previously trialed isosorbide and was unable to tolerate. It was recommended to titrate Toprol XL to 25 mg daily with the addition of Ranexa. 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 patient presented to ED today due to atypical chest pain that was off and on. At approximately 2100 last evening he developed a dull pressure in the substernal area of his chest. The pain remained constant but was dull enough that he was able to fall asleep. He woke up at approximately midnight and described the pain as, "crushing." He was able to get up out of bed and take a sublingual nitro. Upon getting up he did report feeling lightheaded and dizzy. He reports improvement with nitro. During the day today he has had pain off and on and has been waxing and waning with intensity. He is unable to move his routine if the pain is worse with exertion as he has been mostly sedentary today. Over the last week he does report increasing lightheadedness and dizziness upon standing. He has been compliant with his medications. In ED patient remained hemodynamically stable. His EKG was without ischemic change and his initial troponin was unremarkable. His CMP was unremarkable and his CBC revealed hemoglobin of 13.5. His chest x-ray was without acute abnormality. Admission Exam Per Admitting Provider Physical Exam: Constitutional: WD/WN, vitals as above, NAD, sitting up in bed, pleasant, conversing easily Head: Normocephalic, Atraumatic Eyes: PERRL, conjunctivae normal, anicteric sclerae ENMT: external ear and nose normal, oropharynx normal Neck: trachea midline, no thyromegaly normal visual inspection Respiratory: normal respiratory effort, lungs clear to auscultation, no wheeze, rales, rhonchi. Normal insp/exp effort, no accessory muscle use Cardiovascular: RRR, no murmur, no edema Vessels: no JVD or carotid bruit Chest: normal inspection of chest Abdomen: normal bowel sounds, soft, nontender, no hepatosplenomegaly Musculoskeletal: no cyanosis or clubbing, extremities motor strength 5/5 Skin: no rashes, warm and dry normal turgor Neurologic: PERRL, EOMI, accommodation nl, no face palsy, no dysarthria CN's II-XI intact bilaterally and moves all extremities Psychiatric: A+Ox3, euthymic affect Lymphatic: no cervical or axillary lymphadenopathy : deferred Principal Diagnosis Atypical chest pain, rectal bleeding, hypertension Discharge Exam lying in bed without any acute distress but looks very anxious Constitutional well developed, well nourished, + ill appearing and + obese Eyes PERRL, conjunctivae normal, anicteric sclerae ENMT external ear and nose normal, oropharynx normal Neck trachea midline, no thyromegaly Respiratory no respiratory distress Auscultation: lungs clear to auscultation bilaterally Cardiovascular Rate/Rhythm: regular rate and regular rhythm; not tachycardic Heart Sounds: normal S1 and normal S2; no murmur Extremities: + edema ( 1+ edema bilaterally) Gastrointestinal (Abdomen) Inspection/Auscultation: normal bowel sounds; abdomen not distended Percussion/Palpation: abdomen soft; abdomen nontender Neurologic normal touch/pain/proprioception and moves all extremities; no focal motor deficits Psychiatric A+Ox3, euthymic affect Lymphatic no cervical or axillary lymphadenopathy Discharge Data Allergies Allergy/AdvReac Type Severity Reaction Status Date / Time No Known Allergies Allergy Unknown Verified 04/23/24 14:23 Consultations 06/03/24 18:06 ED Decision to Admit Stat 06/03/24 19:31 Consult Gastroenterology Routine 06/03/24 19:32 Consult Cardiology Routine Hospital Course (1) Chest pain: This is a 68-year-old male who has a significant past medical history of CAD status post AMY to LAD February 11, 2024, HTN, HLD, T2DM, NSVT who presents to ED secondary to atypical chest pain. Atypical Chest Pain CAD - hx of AMY to LAD February 11, 2024 pt with intermitted atypical chest pain since stent insertion, intolerant to isosorbide metoprolol recently increased to Toprol XL 25mg daily and Ranexa 500mg bid added Pt with persistent chest pain over last 24 hrs trop negative (but when requiring stent placement trop also negative) trial nitro paste, prn IV morphine continue current regimen of metoprolol, asa, plavix, statin per Dr. Snider progress note from 06/03 possible discussion with interventional cardio at [facility] [place] regarding occluded RCA pt still reports lightheaded/dizziness upon standing Serial troponins have been negative and EKG remained unremarkable Ongoing symptoms of chest pain/discomfort and dizziness with standing and ambulation Appreciate cardiology input and recommendation for possible further intervention given ongoing symptoms The patient remains very anxious Denies any more chest pain and has been ambulating in the room and in the hallway without any problem Complaint to have dizziness with ambulation last evening and the patient did not go home Does not have any symptoms since this morning Does not have any orthostatic changes He was advised to walk around with the nurse in the hallway before going home this afternoon (2) Hematochezia: Rectal Bleeding pt hospitalized in april for rectal bleeding sigmoidoscopy consistent with infectious colititis, ETEC and norovirus s/p Azithromycin rectal bleeding still occurring despite Anusol, hgb stable consult GI for any further recs given pt unable to stop DAPT Appreciate GI input and recommendation- no intervention at this time He will have outpatient colonoscopy as soon as possible No more bleeding from rectum and he will have outpatient colonoscopy next week (3) CAD (coronary artery disease), [place] coronary artery: (4) Diabetes mellitus type 2 with complications: (5) Hypertension: (6) Obesity (BMI 35.0-39.9 without comorbidity): (7) High cholesterol: Plan HTN: chronic, stable, continue metoprolol, lisinopril recently d/c HLD: chronic, stable, continue statin T2DM: Last a1c 6.8, hold metformin/rybelsus; novolog per protocol DVT ppx: SQ Heparin FULL CODE PCP: [facility] Dispo: admit to PCU for further cardiac monitoring likely discharge this afternoon Total Time Total Time Spent Total Time Spent (In Minutes): 45 minutes Discharge Plan Discharge Items Patient Disposition: Home - Self-Care Reason For Visit: ATYPICAL CHEST PAIN Discharge Diagnosis: Atypical chest pain, rectal bleeding, hypertension Condition on Discharge: Fair Activity: Resume your previous activity Activity Comment: Take it easy for the next few weeks Non-emergency contact: Primary Care Provider Call non-emergency contact if: you have any medication questions and your symptoms worsen Follow-up/Referrals: Alonso Daigle MD [Primary Care Provider] - (Your doctor's office will give you a call with an appointment within 7 days) Diet: Heart Healthy Addtl Attending Provider Instructions: Please take precautions to avoid falls Take your medications as advised Take it easy for the next few weeks Please give appointments with the healthcare providers Pending Studies at Discharge: No Stand-Alone Forms: [employer], Smoking Cessation Medications and DC Order Prescriptions: New amlodipine [Norvasc] 5 mg Tablet 2.5 mg PO QAM Qty: 30 0RF Continued multivitamin Tablet 1 tab PO QAM atorvastatin 80 mg Tablet 80 mg PO HS fexofenadine 180 mg Tablet 180 mg PO QDD aspirin [Nga Low Dose Aspirin] 81 mg Tablet,Delayed Release (Dr/Ec) 81 mg PO QDD fluticasone propionate [Flonase Allergy Relief] 50 mcg/actuation [place],Suspension 2 spray INTRANASAL QAM omega [id number] oil [Fish Oil] 1,000 mg (120 mg-180 mg) Capsule 1 cap PO DAILY potassium gluconate 550 mg (90 mg) Tablet 550 mg PO QDD esomeprazole magnesium [Nexium] 20 mg Capsule,Delayed Release(Dr/Ec) 20 mg PO DAILYBB diclofenac sodium [Voltaren Arthritis Pain] 1 % Gel 1 g TOPICAL QID PreserVision AREDS-2 250-90-40-1 mg Capsule 1 tab PO BID Rybelsus 7 mg Tablet 7 mg PO QAM gabapentin 100 mg capsule 100 mg PO HS Qty: 30 0RF clopidogrel 75 mg tablet 75 mg PO QAM metformin 1,000 mg tablet 1,000 mg PO BIDWMEAL montelukast 10 mg tablet 10 mg PO QAM ezetimibe 10 mg tablet 10 mg PO QAM pantoprazole 40 mg Tablet,Delayed Release (Dr/Ec) 40 mg PO BID Qty: 60 0RF ranolazine 500 mg tablet extended release 12 hr 500 mg PO BID metoprolol succinate 25 mg tablet extended release 24 hr 25 mg PO QAM magnesium 250 mg Tablet 250 mg PO DAILY Discharge Orders: Discharge Order (Routine); Ordered 06/05/24 Ordered By: Jayson Baptiste Admission Data Admit Date/Time: 06/03/24 18:16 Attending Provider: Jayson Baptiste Admit Provider: Omar Panchal Primary Care Provider: Alonso Daigle Other Providers: Omar Panchal; Andrew Manning; Hunter Sultana Other Interventions: Discharge Summary Assessment (RN) Last Done: 06/06/24 13:30
== END 2024-06-06 13:29 | disposition home or self-care (01) ==
LOC: ED 14:45 → 2E 14:45 → SUATTDRO 18:16 → 2E 21:01